=== PATIENT | female | born 1980 | race Caucasian/White ===

== ENCOUNTER 2017-04-03 09:33 | Emergency (ER) | payer MEDICARE, OTHER ==
[2017-04-03] MEDS ORDERED: ONDANSETRON 4 MG/2 ML VIAL IVP STA (09:55)
[2017-04-03] MEDS ORDERED: SODIUM CHLORIDE 0.9% 1,000 ML IV ONE (09:55)
[2017-04-03] MEDS ORDERED: FAMOTIDINE 20 MG/2 ML VIAL IV STA (10:18)
--- NOTE | 2017-04-03 10:18 | ED ---
General Adult HPI - General Chief complaint: Dental/Oral Stated complaint: Dental Pain Time Seen by Provider: 04/03/17 09:47 Source: patient, RN notes reviewed Mode of arrival: ambulatory Limitations: no limitations - History of Present Illness Initial comments: 36-year-old female presents emergency with chief complaint of nausea vomiting diarrhea. Patient states that she had dental extraction last . States she is feeling great yesterday woke up with diarrhea nausea and vomiting and asked reflux. Patient states she just doesn't feel well. She states she may have picked up a GI bug. She also is concerned about infection in her mouth but states that she felt great yesterday with no fevers no chills. She states she has had some bruising noted side of her face which was there after the procedure and they did do sutures in her mouth. Patient states she is on antibiotics but states she cannot take them at this time because she has been vomiting but has taken them since last week. - Related Data Home Medications Medication Instructions Recorded Confirmed ALPRAZolam [Xanax] 2 mg PO DAILY PRN 04/03/17 04/03/17 Amoxicillin 500 mg PO TID 04/03/17 04/03/17 HYDROcodone/APAP 10-325MG [[place] 1 tab PO QID PRN 04/03/17 04/03/17 10-325] Ibuprofen [Motrin] 800 mg PO TID PRN 04/03/17 04/03/17 Loratadine [Claritin] 10 mg PO DAILY 04/03/17 04/03/17 Previous Rx's Medication Instructions Recorded Clindamycin HCl 300 mg PO Q6HR #40 cap 04/03/17 Ondansetron Odt [Zofran Odt] 4 mg PO Q8HR PRN #14 tab 04/03/17 Allergies Allergy/AdvReac Type Severity Reaction Status Date / Time propoxyphene Allergy Rash/Hives Verified 04/03/17 09:54 [From Sissy] Review of Systems ROS Statement: Those systems with pertinent positive or pertinent negative responses have been documented in the HPI. ROS Other: All systems not noted in ROS Statement are negative. Past Medical History History of Any Multi-Drug Resistant Organisms: None Reported Past Surgical History: Hysterectomy, Orthopedic Surgery Additional Past Surgical History / Comment(s): rt wrist/forearm ,D&C Past Psychological History: Anxiety Smoking Status: Current every day smoker Past Alcohol Use History: None Reported Past Drug Use History: Marijuana General Exam Limitations: no limitations General appearance: alert, in no apparent distress Head exam: Present: atraumatic, normocephalic, normal inspection Eye exam: Present: normal appearance, PERRL, EOMI. Absent: scleral icterus, conjunctival injection, periorbital swelling ENT exam: Present: mucous membranes moist, TM's normal bilaterally, normal external ear exam, other (Ecchymosis noted to the left cheek). Absent: normal exam, normal oropharynx (Dental extraction noted #13 and [address] no abscess no erythema no purulent drainage) Neck exam: Present: normal inspection, full ROM. Absent: tenderness, meningismus, lymphadenopathy Respiratory exam: Present: normal lung sounds bilaterally. Absent: respiratory distress, wheezes, rales, rhonchi, stridor Cardiovascular Exam: Present: regular rate, normal rhythm, normal heart sounds. Absent: systolic murmur, diastolic murmur, rubs, gallop, clicks GI/Abdominal exam: Present: soft, normal bowel sounds. Absent: distended, tenderness, guarding, rebound, rigid Course Vital Signs 04/03/17 09:37 Temperature 98.9 F Pulse Rate 72 Respiratory 20 Rate Blood Pressure 116/81 O2 Sat by Pulse 100 Oximetry Medical Decision Making - Medical Decision Making 36-year-old female presented emergency department for nausea vomiting diarrhea and dental problems. Patient dental work seems to be healing with no true signs of worsening infection. Patient most likely has gastroenteritis. Patient does have mild elevation of liver enzymes and ultrasound shows fatty liver versus hepatitis. Acute hepatitis panel we added for concern about hepatitis a as his been a recent outbreak. I did update the patient regarding this. She'll be notified if this is come back positive. Patient will be given Zofran to go home with and will given prescription for clindamycin if her dental symptoms do not improve. - Lab Data Result diagrams: 04/03/17 10:15 04/03/17 10:15 Lab Results 04/03/17 04/03/17 04/03/17 Range/Units 10:15 10:15 10:15 WBC 15.1 H (3.8-10.6) k/uL RBC 4.49 (3.80-5.40) m/uL Hgb 14.3 (11.4-16.0) gm/dL Hct 39.2 (34.0-46.0) % MCV 87.4 (80.0-100.0) fL MCH 31.8 (25.0-35.0) pg MCHC 36.4 (31.0-37.0) g/dL RDW 12.8 (11.5-15.5) % Plt Count 255 (150-450) k/uL Neutrophils % 84 % Lymphocytes % 11 % Monocytes % 3 % Eosinophils % 2 % Basophils % 0 % Neutrophils # 12.7 H (1.3-7.7) k/uL Lymphocytes # 1.6 (1.0-4.8) k/uL Monocytes # 0.4 (0-1.0) k/uL Eosinophils # 0.2 (0-0.7) k/uL Basophils # 0.1 (0-0.2) k/uL Sodium 141 (137-145) mmol/L Potassium 4.2 (3.5-5.1) mmol/L Chloride 107 (98-107) mmol/L Carbon Dioxide 22 (22-30) mmol/L Anion Gap 12 mmol/L BUN 10 (7-17) mg/dL Creatinine 0.75 (0.52-1.04) mg/dL Est GFR (MDRD) Af Amer >60 (>60 ml/min/1.73 sqM) Est GFR (MDRD) Non-Af >60 (>60 ml/min/1.73 sqM) Glucose 97 (74-99) mg/dL Calcium 10.3 H (8.4-10.2) mg/dL Total Bilirubin 0.5 (0.2-1.3) mg/dL AST 66 H (14-36) U/L ALT 197 H (9-52) U/L Alkaline Phosphatase 148 H (38-126) U/L Total Protein 7.9 (6.3-8.2) g/dL Albumin 4.7 (3.5-5.0) g/dL Lipase 63 (23-300) U/L Urine Color Light Yellow Urine Appearance Clear (Clear) Urine pH 8.0 (5.0-8.0) Ur Specific [place] 1.004 (1.001-1.035) Urine Protein Negative (Negative) Urine Glucose (UA) Negative (Negative) Urine Ketones Negative (Negative) Urine Blood Negative (Negative) Urine Nitrite Negative (Negative) Urine Bilirubin Negative (Negative) Urine Urobilinogen <2.0 (<2.0) mg/dL Ur Leukocyte Esterase Negative (Negative) Disposition Clinical Impression: Pain, dental, Gastroenteritis Disposition: HOME SELF-CARE Condition: Stable Instructions: Gastroenteritis (ED) Additional Instructions: Please return to the Emergency Department if symptoms worsen or any other concerns. Prescriptions: Clindamycin HCl 300 mg PO Q6HR #40 cap Ondansetron Odt [Zofran Odt] 4 mg PO Q8HR PRN #14 tab PRN Reason: Nausea Referrals: Digna Alonso MD [Primary Care Provider] - 1-2 days Time of Disposition: 11:56
[2017-04-03 10:36] LABS: Basophils # (A) 0.1 k/uL (0-0.2); Basophils % (A) 0 %; CH 31.4; CHCM 36.1; Eosinophils # (A) 0.2 k/uL (0-0.7); Eosinophils % (A) 2 %; HCT 39.2 % (34.0-46.0); HDW 2.64; HGB 14.3 gm/dL (11.4-16.0); Luc # (Auto) 0.12; Luc % (Auto) 1; Lymphocytes # (A) 1.6 k/uL (1.0-4.8); Lymphocytes % (A) 11 %; MCH 31.8 pg (25.0-35.0); MCHC 36.4 g/dL (31.0-37.0); MCV 87.4 fL (80.0-100.0); Mean Platelet Volume 7.3; Monocytes # (A) 0.4 k/uL (0-1.0); Monocytes % (A) 3 %; Neutrophils # (A) 12.7 k/uL (1.3-7.7); Neutrophils % (A) 84 %; RBC 4.49 m/uL (3.80-5.40); RDW 12.8 % (11.5-15.5); WBC 15.1 k/uL (3.8-10.6); WBC (Perox) 14.97
[2017-04-03 10:46] LABS: Appearance,Urine Clear (Clear); Bilirubin,Urine Negative (Negative); Glucose,Urine (UA) Negative (Negative); Ketones,Urine Negative (Negative); Leukocyte Esterase,Urine Negative (Negative); Nitrite,Urine Negative (Negative); Protein,Urine Negative (Negative); Specific Gravity,Urine 1.004 (1.001-1.035); UA Billing (MACRO vs. MICRO) CHEM; Urobilinogen,Urine <2.0 mg/dL (<2.0)
[2017-04-03 10:49] LABS: ALT 197 U/L (9-52); AST 66 U/L (14-36); Alkaline Phosphatase 148 U/L (38-126); Anion Gap 12 mmol/L; Blood Urea Nitrogen 10 mg/dL (7-17); Calcium 10.3 mg/dL (8.4-10.2); Carbon Dioxide 22 mmol/L (22-30); Chloride 107 mmol/L (98-107); Glucose 97 mg/dL (74-99); Non-African American GFR(MDRD) >60 (>60 ml/min/1.73 sqM); Potassium 4.2 mmol/L (3.5-5.1); Sodium 141 mmol/L (137-145); Total Bilirubin 0.5 mg/dL (0.2-1.3); Total Protein 7.9 g/dL (6.3-8.2)
[2017-04-03] MEDS ORDERED: KETOROLAC 30 MG/ML 1 ML VIAL IVP STA (10:58)
--- NOTE | 2017-04-03 11:35 | US ---
EXAMINATION TYPE: US abdomen limited DATE OF EXAM: 04/03/2017 COMPARISON: NONE CLINICAL HISTORY: Pain. EC patient with dental pain who developed infection post teeth extraction ; nausea and vomiting today with epigastric pain post vomiting; elevated liver enzymes note d upon EC visit today. EXAM MEASUREMENTS: Liver Length: 15.5 cm Gallbladder Wall: 0.1 cm CBD: 0.4 cm Right Kidney: 10.9 x 5.7 x 4.2 cm Pancreas: wnl, tail is obscured by overlying bowel gas Liver: no masses seen; mildly heterogeneous appearance to right lobe liver Gallbladder: wnl; Phrygian Cap noted at gallbladder fundus Evidence for sonographic Coffman's sign: No CBD: wnl Right Kidney: wnl IMPRESSION: 1. Mild heterogeneous age of liver can be seen with areas of localized fatty infiltration, hepatitis or hepatocellular disease correlate clinically.
[2017-04-03] MEDS ORDERED: METOCLOPRAMIDE 5 MG/ML 2 ML VIAL IVP STA (11:54)
[2017-04-03 12:09] VITALS: BP 101/54; PULSE 64; RESP 18; TEMP 98.5
[2017-04-03 12:32] LABS: Hepatitis B Surface Ag Index 0.06
[2017-04-03 12:37] LABS: Hepatitis B Core IgM Index 0.03
[2017-04-03 12:49] LABS: Hepatitis C Virus IgG Ab Negative (Negative); Hepatitis C Virus IgG Index 0.32
== END 2017-04-03 12:09 | disposition home or self-care (01) ==
LOC: EC 09:33
DX: K52.9 Noninfective gastroenteritis and colitis, unspecified (principal); K08.89 Other specified disorders of teeth and supporting structures; K08.409 Partial loss of teeth, unspecified cause, unspecified class; R58 Hemorrhage, not elsewhere classified; R74.8 Abnormal levels of other serum enzymes; R11.2 Nausea with vomiting, unspecified; F17.200 Nicotine dependence, unspecified, uncomplicated; Z79.899 Other long term (current) drug therapy; Z88.5 Allergy status to narcotic agent; Z98.890 Other specified postprocedural states
CPT/HCPCS: 36415; 80053; 80074; 83690; 85025; 81003; 76705; 99283; 96374; 96375 ×3; 96361; J2765; J2405; J1885

== ENCOUNTER → 2018-07-16 | Outpatient (CLI) | payer MEDICARE, OTHER ==
--- NOTE | 2018-07-16 16:03 | US ---
EXAMINATION TYPE: US thyroid st tissue head/neck DATE OF EXAM: 07/16/2018 COMPARISON: 02/26/2013 CLINICAL HISTORY: R22.0 Thyroid Nodule. GLAND SIZE: Right Lobe: 5.0 x 1.5 x 1.9 cm Overall Parenchyma: heterogenous Left Lobe: 4.9 x 0.9 x 1.7 cm Overall Parenchyma: heterogeneous Isthmus Thickness: 0.2 cm NODULES RIGHT: # of nodules measured on right: 1 1. 0.2 X 0.1 x 0.2cm anechoic cystic nodule at the mid pole with well-defined margins. This nodule is wider than tall and shows no intranodular vascularity. Prior size: 0.3 x 0.2 x 0.2 cm LEFT: # of nodules measured on left: There is a 3 mm lower pole left thyroid cyst similar to the p rior exam. ISTHMUS: # of nodules measured in the isthmus: 0 Bilateral neck scanned, no evidence of lymphadenopathy. IMPRESSION: Slightly enlarged heterogenous thyroid gland with a bilateral 3 mm thyroid nodules that appear cystic and similar to the prior of 2012 therefore overwhelmingly benign.
== END | disposition home or self-care (01) ==
LOC: RADUSWWP 15:30
PROVIDERS: ATTEND Internal Medicine
DX: E04.2 Nontoxic multinodular goiter (principal)
CPT/HCPCS: 76536

== ENCOUNTER → 2018-07-27 | Outpatient (CLI) | payer MEDICARE ==
--- NOTE | 2018-07-28 10:01 | MR ---
EXAMINATION TYPE: MR thoracic spine wo con DATE OF EXAM: 07/27/2018 COMPARISON: None HISTORY: Mid Back Pain x 6 months TECHNIQUE: Standard multiplanar, multisequence MRI of the thoracic spine was performed per department al protocol without intravenous contrast. FINDINGS: The thoracic spine vertebral bodies maintain normal vertebral body heights and alignment. Bone marrow signal is slightly decreased throughout although overall within normal limits with note of vertebral body hemangioma at T2 and Modic type II degenerative endplate changes of the lower thoracic spine. C orrelation with CBC could be performed to exclude anemia or myeloproliferative disorder. Throughout the thoracic spine there is no significant disc disease, spinal canal stenosis or neural f oraminal narrowing. No focal disc herniation is seen. Thoracic spinal cord signal is unremarkable. No epidural fluid collection. No intradural or extradural masses seen. IMPRESSION: 1. No compression deformity, spinal canal stenosis, neural foraminal narrowing, or disc herniation in the thoracic spine. Minimal degenerative endplate changes of the lower thoracic spine vertebral bodi es are seen. Paraspinal muscles are unremarkable in signal. 2. Bone marrow signal is at lower limits of normal and could relate to mild anemia. Correlate with CB C to exclude anemia or much less likely myeloproliferative disorder.
== END | disposition home or self-care (01) ==
LOC: RADMRIMAIN 08:44
PROVIDERS: ATTEND Internal Medicine
DX: M47.814 Spondylosis without myelopathy or radiculopathy, thoracic region (principal)
CPT/HCPCS: 72146

== ENCOUNTER → 2018-09-23 | Outpatient (CLI) | payer MEDICARE, OTHER ==
--- NOTE | 2018-09-26 14:30 | MM ---
Reason for exam: screening (asymptomatic). History: Patient is postmenopausal. Family history of breast cancer in paternal grandmother and breast cancer in 3 paternal aunts. Took estrogen for 6 months. MG 3D Screening Mammo W/Cad Bilateral CC and MLO view(s) were taken. Chronic nodularity in the left breast. No significant changes when compared with prior studies. ASSESSMENT: Benign, BI-RAD 2 RECOMMENDATION: Routine screening mammogram of both breasts in 1 year.
== END | disposition home or self-care (01) ==
LOC: RADMAMWWP 10:42
PROVIDERS: ATTEND Obstetrics & Gynecology
DX: Z12.31 Encounter for screening mammogram for malignant neoplasm of breast (principal)
CPT/HCPCS: 77063; 77067

== ENCOUNTER → 2018-10-17 | Outpatient (CLI) | payer MEDICARE, OTHER ==
--- NOTE | 2018-10-18 00:32 | MR ---
EXAMINATION TYPE: MR cspine/lspine wo con DATE OF EXAM: 10/17/2018 COMPARISON: None HISTORY: Chronic Upper and Lower back pain with numbness and weakness in lower extrem. x5 years TECHNIQUE: Multiplanar, multisequence imaging of the lumbar spine and cervical spine is performed wit hout IV contrast. FINDINGS: Cervical spine. The cervical vertebra have fairly normal spacing and alignment. There is no spinal stenosis. There is developmentally adequate spinal canal. Cervical spinal cord has normal signal pattern. There is no e rylan. Brainstem appears normal. There is no cervical paraspinal mass. The posterior elements are inta ct. I see no bony destructive process. Lumbar spine. The lumbar vertebra have normal spacing and alignment. There is slight decreased signal in the L5-S1 disc. There is no compression fracture in the lumbar spine. Lumbar nerve roots appear normal. Neural foramina are widely patent. There is no lumbar paraspinal mass. There is no lumbar spinal stenosis. L ower thoracic spinal cord appears normal. I see no focal bone destruction. There is very small drum stenciler ior disc bulge at L5-S1. IMPRESSION: Negative MR scan of the cervical spine. Negative MR scan of the lumbar spine. Minor degenerative signal changes in the L5-S1 disc. No cervical or lumbar disc herniation or spinal stenosis.
== END | disposition home or self-care (01) ==
LOC: RADMRIMAIN 20:49
PROVIDERS: ATTEND Internal Medicine
DX: M47.817 Spondylosis without myelopathy or radiculopathy, lumbosacral region (principal); M54.2 Cervicalgia
CPT/HCPCS: 72141; 72148

== ENCOUNTER 2018-12-09 19:15 | Observation (INO) | payer MEDICARE ==
[2018-12-09] MEDS ORDERED: SODIUM CHLORIDE 0.9% 1,000 ML IV STA ×2 (19:27)
--- NOTE | 2018-12-09 19:30 | ED ---
Chest Pain HPI - General Chief Complaint: Chest Pain Stated Complaint: chest pain Time Seen by Provider: 12/09/18 19:25 Source: patient, RN notes reviewed, old records reviewed Mode of arrival: ambulatory Limitations: no limitations - History of Present Illness Initial Comments: This is a 38-year-old female the ER for evaluation of chest pain right-sided chest pain rating to back. Patient is anxious feels like she can't catch her breath. Very emotional during questioning. No prior history of chest pain no prior history of heart disease. No high blood pressure or cholesterol no diabetes nonsmoker. No recent travel history no sick contacts. -: week(s) Onset: during rest, during exertion Pain Location: right chest Pain Radiation: RUE, back Severity: moderate Severity scale (1-10): 3 Quality: heaviness, sharp Consistency: intermittent Improves With: nothing Worsens With: nothing Anginal Symptoms: nausea, dyspnea Other Symptoms: palpitations Treatments Prior to Arrival: none - Related Data Home Medications Medication Instructions Recorded Confirmed ALPRAZolam [Xanax] 2 mg PO DAILY PRN 04/03/17 12/09/18 HYDROcodone/APAP 10-325MG [[place] 1 tab PO QID PRN 04/03/17 12/09/18 10-325] Loratadine [Claritin] 10 mg PO DAILY 04/03/17 12/09/18 Furosemide [Lasix] 20 mg PO DAILY 12/09/18 12/09/18 Potassium Chloride ER [K-Dur 10] 10 meq PO DAILY 12/09/18 12/09/18 Topiramate [Topamax] 25 mg PO BID 12/09/18 12/09/18 Allergies Allergy/AdvReac Type Severity Reaction Status Date / Time propoxyphene Allergy Rash/Hives Verified 12/09/18 19:36 [From Sissy] Review of Systems ROS Statement: Those systems with pertinent positive or pertinent negative responses have been documented in the HPI. ROS Other: All systems not noted in ROS Statement are negative. EKG Findings - EKG Comments: EKG Findings:: EKG shows sinus rhythm rate of 86, MO 132, QRS 70, QTc 454 Past Medical History Additional Past Medical History / Comment(s): neuropathy History of Any Multi-Drug Resistant Organisms: None Reported Past Surgical History: Hysterectomy, Orthopedic Surgery Additional Past Surgical History / Comment(s): rt wrist/forearm ,D&C Past Psychological History: Anxiety Smoking Status: Current every day smoker Past Alcohol Use History: None Reported Past Drug Use History: Marijuana General Exam Limitations: no limitations General appearance: alert, in no apparent distress, anxious Head exam: Present: atraumatic, normocephalic, normal inspection Eye exam: Present: normal appearance, PERRL, EOMI. Absent: scleral icterus, conjunctival injection, periorbital swelling ENT exam: Present: normal exam, mucous membranes moist Neck exam: Present: normal inspection. Absent: tenderness, meningismus, lymphadenopathy Respiratory exam: Present: normal lung sounds bilaterally. Absent: respiratory distress, wheezes, rales, rhonchi, stridor Cardiovascular Exam: Present: normal rhythm, tachycardia, normal heart sounds. Absent: systolic murmur, diastolic murmur, rubs, gallop, clicks GI/Abdominal exam: Present: soft, normal bowel sounds. Absent: distended, tenderness, guarding, rebound, rigid Extremities exam: Present: normal inspection, full ROM, normal capillary refill. Absent: tenderness, pedal edema, joint swelling, calf tenderness Back exam: Present: normal inspection Neurological exam: Present: alert, oriented X3, CN II-XII intact Psychiatric exam: Present: normal affect, normal mood Skin exam: Present: warm, dry, intact, normal color. Absent: rash Course Vital Signs 12/09/18 19:18 Temperature 98.0 F Pulse Rate 108 H Respiratory 24 Rate Blood Pressure 128/81 O2 Sat by Pulse 100 Oximetry Chest Pain MDM - MDM 38-year-old female the ER with chest pain, CT negative for PE. Patient be adm itted for cardiac observation Disposition Clinical Impression: Chest pain Disposition: ADMITTED IP TO THIS HOSP Condition: Undetermined Instructions (If sedation given, give patient instructions): Chest Pain (ED) Is patient prescribed a controlled substance at d/c from ED?: No Referrals: Digna Alonso MD [Primary Care Provider] - 1-2 days
[2018-12-09] MEDS ORDERED: LORazepam 2 MG/ML INJ IV STA (19:47)
[2018-12-09 20:01] LABS: HCT 45.8 % (34.0-46.0); HGB 15.8 gm/dL (11.4-16.0); MCH 30.6 pg (25.0-35.0); MCHC 34.5 g/dL (31.0-37.0); MCV 88.5 fL (80.0-100.0); Mean Platelet Volume 7.1; Platelet Count 351 k/uL (150-450); RBC 5.18 m/uL (3.80-5.40); RDW 13.6 % (11.5-15.5); WBC 17.9 k/uL (3.8-10.6)
[2018-12-09 20:09] LABS: Calcium 10.2 mg/dL (8.4-10.2); Magnesium 2.2 mg/dL (1.6-2.3); Potassium 4.3 mmol/L (3.5-5.1); Total Bilirubin 0.5 mg/dL (0.2-1.3); Total Protein 8.3 g/dL (6.3-8.2)
[2018-12-09 20:18] LABS: D-Dimer 0.19 mg/L FEU (<0.60); INR 0.9 (<1.2); Partial Thromboplastin Time 22.6 sec (22.0-30.0); Prothrombin Time 9.7 sec (9.0-12.0)
[2018-12-09 20:47] LABS: Band Neutrophils % 3 %; Eosinophils # (M) 0.18 k/uL (0-0.7); Neutrophils % (M) 58 %; Nucleated Red Blood Cells 0 /100 WBC (0-0); Total Cells Counted 100
--- NOTE | 2018-12-09 20:59 | CT ---
EXAMINATION TYPE: CT angio chest DATE OF EXAM: 12/09/2018 COMPARISON: NONE HISTORY: chest pain x3 weeks CT DLP: 283.3 mGycm. Automated Exposure Control for Dose Reduction was Utilized. CONTRAST: CTA scan of the thorax is performed with IV Contrast, patient injected with 100 mL of Isovue 370, pul monary embolism protocol. MIP Images are created on CT scanner and reviewed. FINDINGS: LUNGS: Dependent atelectasis bilateral lower lobes is identified. No suspicious nodules or masses. No suspicious consolidation. No pleural effusion or pneumothorax. Tracheobronchial tree is patent. MEDIASTINUM: There is satisfactory enhancement of the pulmonary artery and its branches, there is no CT evidence for pulmonary embolism. There are no greater than 1 cm hilar or mediastinal lymph nodes. No cardiomegaly or pericardial effusion is seen. Right coronary artery is not well visualized pres umes obscured by cardiac pulsation. OTHER: No additional significant abnormality is seen. IMPRESSION: No CT evidence for acute pulmonary embolism. No suspicious acute pulmonary process.
[2018-12-09] MEDS ORDERED: NITROGLYCERIN SL TABS 0.4 MG TAB SUBLINGUAL PRN (21:36)
[2018-12-09] MEDS ORDERED: HEPARIN SODIUM,PORCINE 5,000 UNIT/ML 1 ML VIAL IV ONE (21:36)
[2018-12-09] MEDS ORDERED: HEPARIN SODIUM,PORCINE 5,000 UNIT/ML 1 ML VIAL IV PRN (21:36)
[2018-12-09] MEDS ORDERED: ASPIRIN 81 MG PO STA (21:36)
[2018-12-09] MEDS ORDERED: HEPARIN SOD,PORK IN 0.45% NACL 25,000 UNIT in 0.45% NACL 1 250ML.BAG IV SCH (21:45)
[2018-12-09] MEDS ORDERED: ALPRAZolam 0.5 MG TAB PO PRN (22:27)
[2018-12-09] MEDS ORDERED: ACETAMINOPHEN TAB 325 MG TAB PO PRN (22:28)
[2018-12-09] MEDS ORDERED: ONDANSETRON 4 MG/2 ML VIAL IVP PRN (23:30)
[2018-12-09] MEDS: MORPHINE SULFATE 2 MG/ML SYRINGE IVP PRN (23:40)
[2018-12-10] MEDS: NICOTINE 14MG/24HR PATCH TRANSDERM SCH ×2 (00:11→08:17)
[2018-12-10 03:47] VITALS: TEMP 98
[2018-12-10] MEDS: MORPHINE SULFATE 2 MG/ML SYRINGE IVP PRN (04:05)
[2018-12-10 08:03] LABS: Cholesterol 278 mg/dL (<200); HDL Cholesterol 46 mg/dL (40-60); LDL Cholesterol,Calculated 176 mg/dL (0-99); Triglycerides 281 mg/dL (<150)
[2018-12-10 08:27] LABS: Mean Platelet Volume 7.6; Platelet Count 260 k/uL (150-450)
[2018-12-10] MEDS ORDERED: NAPROXEN 250 MG TAB PO STA (08:37)
[2018-12-10] MEDS ORDERED: PANTOPRAZOLE 40 MG TABLET PO SCH (08:45)
[2018-12-10] MEDS ORDERED: ASPIRIN 325 MG TAB PO SCH (09:00)
[2018-12-10] MEDS ORDERED: ATORVASTATIN 80 MG TAB PO SCH (09:00)
--- NOTE | 2018-12-10 10:08 | XR ---
EXAMINATION TYPE: XR chest 2V DATE OF EXAM: 12/10/2018 COMPARISON: 12/09/2018 CT chest HISTORY: Chest pain and dizziness TECHNIQUE: Frontal and lateral views of the chest are obtained. FINDINGS: There is no focal air space opacity, pleural effusion, or pneumothorax seen. The cardiac silhouette size is within normal limits. The osseous structures are intact. IMPRESSION: No acute cardiopulmonary process.
--- NOTE | 2018-12-10 10:37 | P.CRDCN ---
History of Present Illness History of present illness: This is a pleasant 38-year-old female with no significant past medical history other than chronic daily nicotine use she smokes approximately one pack per day. She denies history of coronary artery disease, hypertension or dyslipidemia. We have been asked to see her in consultation for symptoms of chest discomfort. She complains of a sharp pain in mid-sternal region that move s from right to left and down the right arm to the elbow as well is down the right leg. She has also been experiencing some shortness of breath, light headed feeling, palpitations described as racing and clammy sensation. Her symptoms are not related to exertion or activity. The pain in the chest is reproducible on palpation and worse when she starts coughing. For approximately the last month she has had symptoms of upper respiratory illness. She initially was started on a Z-pack for congestion and suspected pneumonia which seemed to improve. Then a couple of weeks later she again was feeling short of breath, coughing and having lower extremity edema. Her PCP started her again on antibiotics, a medrol dose pack, lasix and ordered an echocardiogram. She has taken the lasix for 1 week and had 100% resolution of lower extremity edema. She finished the steroids yesterday. However she continues to feel short of breath, chest pain and coughing. EKG reveals sinus mechanism with no ST or t-wave abnormalities. Chest x-ray is negative for an acute cardiopulmonary process. CTA chest negative for pulmonary embolism. Laboratory data reviewed, WBC 17.9, cardiac enzymes negative 3, NT proBNP 23. At the time of my exam: CONSTITUTIONAL: Denies fever. Denies chills. EYES: Denies blurred vision. Denies vision changes. Denies eye pain. EARS, NOSE, MOUTH & THROAT: Denies headache. Denies sore throat. Denies ear pain. CARDIOVASCULAR: Denies chest pain. Denies shortness of breath. Denies orthopnea. Denies PND. Denies palpitations. RESPIRATORY: Denies cough. GASTROINTESTINAL: Denies abdominal pain. Denies diarrhea. Denies constipation. Denies nausea. Denies vomiting. MUSCULOSKELETAL: Denies myalgias. INTEGUMENTARY: Denies pruitis. Denies rash. NEUROLOGIC: Denies numbness. Denies tingling. Denies weakness. PSYCHIATRIC: Denies anxiety. Denies depression. ENDOCRINE: Denies fatigue. Denies weight change. Denies polydipsia. Denies polyurina. GENITOURINARY: Denies burning, hematuria or urgency with micturation. HEMATOLOGIC: Denies history of anemia. Denies bleeding. Blood pressure 112/73 heart rate 72 afebrile maintaining oxygen saturation on room air GENERAL: This is a 38-year-old female in no apparent distress at the time of my examination. HEENT: Head is atraumatic, normocephalic. Pupils are equal, round. Sclerae anicteric. Conjunctivae are clear. Mucous membranes of the mouth are moist. Neck is supple. There is no jugular venous distention. No carotid bruit is heard. LUNGS: Clear to auscultation no wheezes, rales or rhonchi. No chest wall tenderness is noted on palpation or with deep breathing. HEART: Regular rate and rhythm without murmurs, rubs or gallops. S1 and S2 heard. ABDOMEN: Soft, nontender. Bowel sounds are heard. No organomegaly noted. EXTREMITIES: No evidence of peripheral edema and no calf tenderness noted. VASCULAR: Radial and dorsalis pedis pulses palpated, no evidence of clubbing. NEUROLOGIC: Patient is awake, alert and oriented x3. ASSESSMENT Chest pain, atypical possibly related to musculoskeletal strain secondary to coughing and upper respiratory type infection. Chronic nicotine dependence Leukocytosis PLAN An acute coronary event has been ruled out. Discontinue heparin infusion. Give a dose of naproxen for pain. Obtain 2D echocardiogram and doppler study to assess cardiac structure and function. Overall stable from a cardiac perspective. Follow up in the office for outpatient stress testing when acute respiratory il lness has improved. Smoking cessation recommended. Thank you kindly for this consultation. Nurse Practitioner note has been reviewed, I agree with a documented findings and plan of care. Patient was seen and examined. Past Medical History Additional Past Medical History / Comment(s): neuropathy History of Any Multi-Drug Resistant Organisms: None Reported Past Surgical History: Hysterectomy, Orthopedic Surgery Additional Past Surgical History / Comment(s): rt wrist/forearm ,D&C Past Anesthesia/Blood Transfusion Reactions: No Reported Reaction Smoking Status: Current every day smoker - Past Family History Mother Family Medical History: No Reported History Father Additional Family Medical History / Comment(s): cardiovascular swelling Medications and Allergies Home Medications Medication Instructions Recorded Confirmed Type ALPRAZolam [Xanax] 2 mg PO DAILY PRN 04/03/17 12/09/18 History HYDROcodone/APAP 10-325MG [[place] 1 tab PO QID PRN 04/03/17 12/09/18 History 10-325] Loratadine [Claritin] 10 mg PO DAILY 04/03/17 12/09/18 History Furosemide [Lasix] 20 mg PO DAILY 12/09/18 12/09/18 History Potassium Chloride ER [K-Dur 10] 10 meq PO DAILY 12/09/18 12/09/18 History Topiramate [Topamax] 25 mg PO BID 12/09/18 12/09/18 History Allergies Allergy/AdvReac Type Severity Reaction Status Date / Time propoxyphene Allergy Rash/Hives Verified 12/09/18 23:06 [From Sissy] Physical Exam Vitals: Vital Signs Temp Pulse Pulse Resp BP BP Pulse Ox 12/10/18 07:10 98.0 F 72 18 112/73 98 12/10/18 04:00 16 12/10/18 03:46 98.0 F 69 16 107/65 99 12/09/18 23:57 16 12/09/18 23:48 97.5 F L 82 16 115/77 98 12/09/18 21:22 77 18 109/80 98 12/09/18 19:18 98.0 F 108 H 24 128/81 100 Intake and Output 12/09/18 12/10/18 12/10/18 22:59 06:59 14:59 Other: # Voids 1 Weight 82.554 kg Results 12/10/18 07:26 12/09/18 19:45 Cardiac Enzymes 12/09/18 12/09/18 12/10/18 Range/Units 19:45 19:45 02:11 AST 26 (14-36) U/L Troponin I <0.012 <0.012 (0.000-0.034) ng/mL Coagulation 12/09/18 Range/Units 19:45 PT 9.7 (9.0-12.0) sec APTT 22.6 (22.0-30.0) sec CBC 12/09/18 Range/Units 19:45 WBC 17.9 H (3.8-10.6) k/uL RBC 5.18 (3.80-5.40) m/uL Hgb 15.8 (11.4-16.0) gm/dL Hct 45.8 (34.0-46.0) % Plt Count 351 (150-450) k/uL Comprehensive Metabolic Panel 12/09/18 Range/Units 19:45 Sodium 139 (137-145) mmol/L Potassium 4.3 (3.5-5.1) mmol/L Chloride 105 (98-107) mmol/L Carbon Dioxide 22 (22-30) mmol/L BUN 19 H (7-17) mg/dL Creatinine 0.96 (0.52-1.04) mg/dL Glucose 86 (74-99) mg/dL Calcium 10.2 (8.4-10.2) mg/dL AST 26 (14-36) U/L ALT 37 (9-52) U/L Alkaline Phosphatase 116 (38-126) U/L Total Protein 8.3 H (6.3-8.2) g/dL Albumin 5.0 (3.5-5.0) g/dL Current Medications Generic Name Dose Route Start Last Admin Trade Name Freq PRN Reason Stop Dose Admin Acetaminophen 650 mg 12/09/18 22:28 Tylenol Tab PO Q6HR PRN Fever and/ or Pain Alprazolam 0.5 mg 12/09/18 22:27 Xanax PO TID PRN Anxiety Aspirin 325 mg 12/10/18 09:00 Aspirin PO DAILY [facility] Atorvastatin Calcium 80 mg 12/10/18 09:00 Lipitor PO DAILY [facility] Heparin Sodium (Porcine) 0 unit 12/09/18 21:36 Heparin IV Q6HR PRN Low PTT Protocol Heparin Sodium/Sodium Chloride 250 mls @ 9.906 mls/hr 12/09/18 21:45 12/09/18 22:11 25,000 unit/ Sodium Chloride IV 12 units/kg/hr .Q24H CRISTEL 9.906 mls/hr Administration Protocol 12 UNITS/KG/HR Morphine Sulfate 2 mg 12/09/18 23:30 12/10/18 04:05 Morphine Sulfate (Inj) IVP 2 mg Q4H PRN Administration Pain/Discomfort Nicotine 1 patch 12/09/18 23:45 12/10/18 00:11 Habitrol 14mg/24hr Patch TRANSDERM 1 patch DAILY [facility] Administration Nitroglycerin 0.4 mg 12/09/18 21:36 Nitrostat SUBLINGUAL Q5M PRN Chest Pain Ondansetron HCl 4 mg 12/09/18 23:30 Zofran IVP Q6HR PRN Nausea And Vomiting Intake and Output 12/09/18 12/10/18 12/10/18 22:59 06:59 14:59 Other: # Voids 1 Weight 82.554 kg 12/09/18 19:45 12/09/18 19:45
[2018-12-10 11:38] VITALS: BP 106/71; PULSE 76; RESP 18
--- NOTE | 2018-12-10 12:57 | ECHOF ---
Referral Reason: MEASUREMENTS -------- HEIGHT: 162.6 cm WEIGHT: 87.1 kg BP: 112/73 RVIDd: 2.5 cm (< 3.3) IVSd: 1.3 cm (0.6 - 1.1) LVIDd: 3.8 cm (3.9 - 5.3) LVPWd: 1.1 cm (0.6 - 1.1) IVSs: 1.2 cm LVIDs: 2.9 cm LVPWs: 1.4 cm LA Diam: 3.0 cm (2.7 - 3.8) LAESV Index (A-L): 19.57 ml/m Ao Diam: 2.5 cm (2.0 - 3.7) AV Cusp: 1.5 cm (1.5 - 2.6) LA Diam: 3.1 cm (2.7 - 3.8) MV EXCURSION: 21.518 mm (> 18.000) MV EF SLOPE: 119 mm/s (70 - 150) EPSS: 0.3 cm MV E Christian: 0.77 m/s MV DecT: 153 ms MV A Christian: 0.70 m/s MV E/A Ratio: 1.09 RAP: 5.00 mmHg RVSP: 23.34 mmHg FINDINGS -------- Sinus rhythm. This was a technically good study. LV size, wall thickness and systolic function are normal, with an EF greater than 55%. The left radha tricular size is normal. The right ventricle is normal in size. The left atrial size is normal. The right atrial size is normal. The aortic valve is trileaflet, and appears structurally normal. No aortic stenosis or regurgitation. Mild mitral annular calcification present. Mild mitral regurgitation is present. No regurgitation noted There is no evidence of pulmonary hypertension. The right ventricular syst olic pressure, as measured by Doppler, is 23.34mmHg. There is no pulmonic regurgitation present. There is no pericardial effusion. CONCLUSIONS -------- 1. LV size, wall thickness and systolic function are normal, with an EF greater than 55%. 2. The left ventricular size is normal. 3. The right ventricle is normal in size. 4. The left atrial size is normal. 5. The right atrial size is normal. 6. The aortic valve is trileaflet, and appears structurally normal. No aortic stenosis or regurgitati on. 7. Mild mitral annular calcification present. 8. Mild mitral regurgitation is present. 9. No regurgitation noted 10. There is no evidence of pulmonary hypertension. 11. The right ventricular systolic pressure, as measured by Doppler, is 23.34mmHg. 12. There is no pulmonic regurgitation present. 13. There is no pericardial effusion. [employer] MECH[employer]IC: Sosa Bocanegra RDCS
--- NOTE | 2018-12-10 15:01 | P.DS ---
Providers Date of admission: 12/09/18 21:36 Attending physician: Leonardo Villarreal Consults: 12/09/18 21:36 Consult Physician Urgent Consulting Provider: Maria Luz Funk Consult Reason/Comments: cp Do you want consulting provider notified?: Yes Primary care physician: Gavin Sawyer [place] [facility] Course: Please refer to my HPI Patient Condition at Discharge: Undetermined Plan - Discharge Summary New Discharge Prescriptions: New Amoxic-Pot Clav 875-125Mg [Augmentin 875-125] 1 tab PO Q12HR #10 tablet Atorvastatin [Lipitor] 40 mg PO DAILY #30 tab methylPREDNISolone Dose Pack [Medrol Dose Pack] 4 mg PO DIRECTED #21 package Nicotine 21Mg/24Hr Patch [Habitrol] 1 each TRANSDERM DAILY #14 patch Continue Loratadine [Claritin] 10 mg PO DAILY HYDROcodone/APAP 10-325MG [[place] 10-325] 1 tab PO QID PRN PRN Reason: Pain Potassium Chloride ER [K-Dur 10] 10 meq PO DAILY Furosemide [Lasix] 20 mg PO DAILY Topiramate [Topamax] 25 mg PO BID Changed ALPRAZolam [Xanax] 0.5 mg PO DAILY PRN #0 PRN Reason: Anxiety Discharge Medication List HYDROcodone/APAP 10-325MG [[place] 10-325] 1 tab PO QID PRN 04/03/17 [History] Loratadine [Claritin] 10 mg PO DAILY 04/03/17 [History] Furosemide [Lasix] 20 mg PO DAILY 12/09/18 [History] Potassium Chloride ER [K-Dur 10] 10 meq PO DAILY 12/09/18 [History] Topiramate [Topamax] 25 mg PO BID 12/09/18 [History] ALPRAZolam [Xanax] 0.5 mg PO DAILY PRN #0 12/10/18 [Rx] Amoxic-Pot Clav 875-125Mg [Augmentin 875-125] 1 tab PO Q12HR #10 tablet 12/10/18 [Rx] Atorvastatin [Lipitor] 40 mg PO DAILY #30 tab 12/10/18 [Rx] Nicotine 21Mg/24Hr Patch [Habitrol] 1 each TRANSDERM DAILY #14 patch 12/10/18 [Rx] methylPREDNISolone Dose Pack [Medrol Dose Pack] 4 mg PO DIRECTED #21 package 12/10/18 [Rx] Follow up Appointment(s)/Referral(s): Luigi Cordero MD [STAFF PHYSICIAN] - 2 Weeks Digna Alonso MD [Primary Care Provider] - 3 Days Travis Olson DO [Doctor of Osteopathic Medicine] - 1 Week Patient Instructions/Handouts: Chest Pain (ED) Discharge Disposition: HOME SELF-CARE
--- NOTE | 2018-12-10 15:01 | P.HPIM ---
History of Present Illness 38-year-old present female came in with complains of chest pain patient was dealing with upper respiratory tract infection for about a week or more and patient the completed 1 course of for Medrol Dosepak and Z-Jayy without any improvement in symptoms because of this patient has [place] skeletal chest pain has been going on for some time midsternal region moderate chest pain radiating from right to left denied any diaphoresis associated with that there is some shortness of breath and lightheadedness associated with that. Patient denied any fever chills patient's chest CAT scan did not show any PE or pneumonia. Patient was evaluated by cardiology rule out acute medicine syndromes troponins were negative EKG did not show any acute ST-T wave changes cardiology is recommending outpatient stress test. Patient does have history of gastroesophageal reflux disease but the her present symptomatology is not consistent with that. Patient denied any fever chills. Patient is also company of back pain which appears to be chronic and the that radiates to back of the buttock and thigh is comparing of bilateral lower extremity neuropathic symptoms. Patient has history of anxiety and and had lot of questions regarding management of anxiety disorder patient is on very high-dose of Xanax cut down the dose and patient will be started on Prozac. Review of Systems REVIEW OF SYSTEMS: CONSTITUTIONAL: No fever, no malaise, no fatigue. HEENT: No recent visual problems or hearing problems. Denied any sore throat. CARDIOVASCULAR: No orthopnea, PND, no palpitations, no syncope. PULMONARY: No shortness of breath, no cough, no hemoptysis. GASTROINTESTINAL: No diarrhea, no nausea, no vomiting, no abdominal pain. NEUROLOGICAL: No headaches, no weakness, no numbness. HEMATOLOGICAL: Denies any bleeding or petechiae. GENITOURINARY: Denies any burning micturition, frequency, or urgency. MUSCULOSKELETAL/RHEUMATOLOGICAL: As mentioned in HPI ENDOCRINE: Denies any polyuria or polydipsia. The rest of the 14-point review of systems is negative. Past Medical History Additional Past Medical History / Comment(s): neuropathy History of Any Multi-Drug Resistant Organisms: None Reported Past Surgical History: Hysterectomy, Orthopedic Surgery Additional Past Surgical History / Comment(s): rt wrist/forearm ,D&C Past Anesthesia/Blood Transfusion Reactions: No Reported Reaction Smoking Status: Current every day smoker - Past Family History Mother Family Medical History: No Reported History Father Additional Family Medical History / Comment(s): cardiovascular swelling Medications and Allergies Home Medications Medication Instructions Recorded Confirmed Type HYDROcodone/APAP 10-325MG [[place] 1 tab PO QID PRN 04/03/17 12/09/18 History 10-325] Loratadine [Claritin] 10 mg PO DAILY 04/03/17 12/09/18 History Furosemide [Lasix] 20 mg PO DAILY 12/09/18 12/09/18 History Potassium Chloride ER [K-Dur 10] 10 meq PO DAILY 12/09/18 12/09/18 History Topiramate [Topamax] 25 mg PO BID 12/09/18 12/09/18 History ALPRAZolam [Xanax] 0.5 mg PO DAILY PRN #0 12/10/18 12/09/18 Rx Amoxic-Pot Clav 875-125Mg 1 tab PO Q12HR #10 tablet 12/10/18 Rx [Augmentin 875-125] Atorvastatin [Lipitor] 40 mg PO DAILY #30 tab 12/10/18 Rx Nicotine 21Mg/24Hr Patch [Habitrol] 1 each TRANSDERM DAILY #14 patch 12/10/18 Rx methylPREDNISolone Dose Pack 4 mg PO DIRECTED #21 package 12/10/18 Rx [Medrol Dose Pack] Allergies Allergy/AdvReac Type Severity Reaction Status Date / Time propoxyphene Allergy Rash/Hives Verified 12/09/18 23:06 [From Sissy] Physical Exam Vitals: Vital Signs Temp Pulse Pulse Resp BP BP BP 12/10/18 11:20 98.0 F 76 18 106/71 12/10/18 08:40 16 12/10/18 08:00 72 16 12/10/18 07:10 98.0 F 72 18 112/73 12/10/18 04:00 16 12/10/18 03:46 98.0 F 69 16 107/65 12/09/18 23:57 16 12/09/18 23:48 97.5 F L 82 16 115/77 12/09/18 21:22 77 18 109/80 12/09/18 19:18 98.0 F 108 H 24 128/81 Pulse Ox 12/10/18 11:20 98 12/10/18 08:40 97 12/10/18 08:00 12/10/18 07:10 98 12/10/18 04:00 12/10/18 03:46 99 12/09/18 23:57 12/09/18 23:48 98 12/09/18 21:22 98 12/09/18 19:18 100 Intake and Output 12/09/18 12/10/18 12/10/18 22:59 06:59 14:59 Intake Total 320 Balance 320 Intake: Oral 320 Other: # Voids 1 Weight 82.554 kg PHYSICAL EXAMINATION: GENERAL: The patient is alert and oriented x3, not in any acute distress. Well developed, well nourished. HEENT: Pupils are round and equally reacting to light. EOMI. No scleral icterus. No conjunctival pallor. Normocephalic, atraumatic. She does have pharyngeal erythema and hoarseness of voice No thyromegaly. CARDIOVASCULAR: S1 and S2 present. No murmurs, rubs, or gallops. PULMONARY: Chest is clear to auscultation, no wheezing or crackles. ABDOMEN: Soft, nontender, nondistended, normoactive bowel sounds. No palpable organomegaly. MUSCULOSKELETAL: No joint swelling or deformity. EXTREMITIES: No cyanosis, clubbing, or pedal edema. NEUROLOGICAL: Gross neurological examination did not reveal any focal deficits. SKIN: No rashes. Results CBC & Chem 7: 12/10/18 07:26 12/09/18 19:45 Labs: Abnormal Lab Results - Last 24 Hours (Table) 12/09/18 12/09/18 12/10/18 Range/Units 19:45 19:45 07:26 WBC 17.9 H (3.8-10.6) k/uL Neutrophils # (Manual) 10.90 H (1.3-7.7) k/uL Lymphocytes # (Manual) 6.80 H (1.0-4.8) k/uL APTT (22.0-30.0) sec BUN 19 H (7-17) mg/dL Total Protein 8.3 H (6.3-8.2) g/dL Triglycerides 281 H (<150) mg/dL Cholesterol 278 H (<200) mg/dL LDL Cholesterol, Calc 176 H (0-99) mg/dL 12/10/18 Range/Units 07:26 WBC (3.8-10.6) k/uL Neutrophils # (Manual) (1.3-7.7) k/uL Lymphocytes # (Manual) (1.0-4.8) k/uL APTT 47.7 H (22.0-30.0) sec BUN (7-17) mg/dL Total Protein (6.3-8.2) g/dL Triglycerides (<150) mg/dL Cholesterol (<200) mg/dL LDL Cholesterol, Calc (0-99) mg/dL Assessment and Plan Plan: -Chest pain noncardiac musculoskeletal ruled out acute coronary syndromes outpatient stress test patient underwent evaluation by cardiology was ruled out unstable angina. -Hoarseness of voice and pharyngitis: Patient denied any acid reflux symptoms patient will be discharged on Augmentin patient may benefit from evaluation by ENT. Prescription for Medrol Dosepak was provided a she'll follow with PCP -Chronic low back pain with radiculopathy patient was recommended to use nonsteroidal anti-inflammatories for this and patient may benefit from outpatient physical therapy -Anxiety disorder: Patient will be prescribed Prozac we'll cut down the dose of Xanax -Nicotine abuse: Counseling was provided patient is requesting for nicotine transdermal patches prescription of which will be provided -Marijuana use: Counseling was provided
[2018-12-11] MEDS ORDERED: ATORVASTATIN 40 MG TAB PO SCH (09:00)
== END 2018-12-10 13:12 | disposition home or self-care (01) ==
LOC: EC 19:15 → 1SOBS 21:36
PROVIDERS: ADMIT Hospitalist; ATTEND Hospitalist
DX: R07.89 Other chest pain (principal); F17.210 Nicotine dependence, cigarettes, uncomplicated; J02.9 Acute pharyngitis, unspecified; R06.02 Shortness of breath; G89.29 Other chronic pain; M54.5 Low back pain; G62.9 Polyneuropathy, unspecified; F41.9 Anxiety disorder, unspecified; K21.9 Gastro-esophageal reflux disease without esophagitis; Z90.710 Acquired absence of both cervix and uterus; Z71.6 Tobacco abuse counseling; Z71.51 Drug abuse counseling and surveillance of drug abuser; Z79.899 Other long term (current) drug therapy; Z88.5 Allergy status to narcotic agent
CPT/HCPCS: 96361 ×3; 96375 ×2; 96376 ×2; 96365; 99285; 36415; 93005; 93306; 85379; 83880; 80061; 80053; 83690; 83735; 84484 ×2; 85025; 85049; 85610; 85730 ×2; 71046; 71275; G0378 ×2; S4990; J2060; J1644 ×2; J2270 ×2; Q9967

== ENCOUNTER → 2019-05-13 | Outpatient (CLI) | payer MEDICARE ==
[2019-05-13 10:23] LABS: Basophils # (A) 0.1 k/uL (0-0.2); Basophils % (A) 1 %; Eosinophils # (A) 0.5 k/uL (0-0.7); Eosinophils % (A) 6 %; HCT 43.6 % (34.0-46.0); HGB 14.8 gm/dL (11.4-16.0); Lymphocytes # (A) 2.5 k/uL (1.0-4.8); Lymphocytes % (A) 26 %; MCH 30.5 pg (25.0-35.0); MCV 89.9 fL (80.0-100.0); Mean Platelet Volume 7.3; Monocytes # (A) 0.3 k/uL (0-1.0); Monocytes % (A) 3 %; Neutrophils # (A) 6.1 k/uL (1.3-7.7); Neutrophils % (A) 63 %; Platelet Count 241 k/uL (150-450); RBC 4.85 m/uL (3.80-5.40); RDW 14.8 % (11.5-15.5); WBC 9.6 k/uL (3.8-10.6)
[2019-05-13 17:09] LABS: Protein, Total 6.4 g/dL (6.2-8.2)
[2019-05-13 17:22] LABS: Gliadin AB IgA, Deaminated NEGATIVE (NEGATIVE); Gliadin AB IgA, Unit <0.2 U/mL; Gliadin AB IgG, Deaminated NEGATIVE (NEGATIVE)
[2019-05-13 18:10] LABS: African American GFR (CKD) 106.9 (60.0-200.0); Albumin 4.2 g/dL (3.80-4.90); Anion Gap 6.1 mmol/L (4.00-12.00); BUN/Creat Ratio 17.5 Ratio (12.00-20.00); Calcium 9.5 mg/dL (8.7-10.3); Carbon Dioxide 26.9 mmol/L (21.6-31.8); Globulin 2.1 g/dL (1.6-3.3); Potassium 4.5 mmol/L (3.5-5.5); Total Bilirubin 0.2 mg/dL (0.2-1.2); Total Protein 6.3 g/dL (6.2-8.2)
[2019-05-13 18:14] LABS: Iron Saturation 12.69 (12.00-45.00)
[2019-05-14 10:45] LABS: Albumin 3.22 g/dL (3.80-4.90); Gamma Globulin 0.83 g/dL (0.70-1.50)
[2019-05-14 11:52] LABS: Liver/Kidney Microsome Antibod 0.6 UNITS (<=20)
[2019-05-14 12:19] LABS: Ceruloplasmin 33.4 mg/dL (20.0-60.0)
== END | disposition home or self-care (01) ==
LOC: LABWHC1 09:24
PROVIDERS: ATTEND Internal Medicine
DX: R74.8 Abnormal levels of other serum enzymes (principal)
CPT/HCPCS: 36415; 80053; 80074; 82103; 82390; 82728; 83516; 83540; 83550; 84165; 85025; 86038; 86376

== ENCOUNTER → 2019-06-28 | Outpatient (CLI) | payer MEDICARE, OTHER ==
--- NOTE | 2019-06-29 22:08 | CT ---
EXAMINATION TYPE: CT soft tissue neck w con DATE OF EXAM: 06/28/2019 COMPARISON: Chest 12/09/2018 HISTORY: 38-year-old female Bilateral neck swelling Post OP vocal cord mass removal. Prior FNA x's 2 TECHNIQUE: Contiguous axial scanning of the soft tissues of the neck performed with IV Contrast, joy ent injected with 100 mL of Isovue 300. Coronal/sagittal reconstructions performed. CT DLP: 541.2 mGycm Automated exposure control for dose reduction was used. FINDINGS: Small air-fluid levels within the bilateral maxillary sinuses with moderate to severe mucosal thicken ing ethmoid air cells. Rightward nasal septal deviation. Visualized intracranial structures and visualized orbits and globes as well as the mastoid air cells appear clear. Nasopharynx appears clear. Oropharynx appears clear. Glottic and subglottic structures as well as the tracheal column appear clear. Visualized upper lungs show mild diffuse bronchial wall thickening that could reflect bronchitis or asthma. Thyroid, submandibular, and parotid glands appear satisfactory. A borderline enlarged 1.4 cm station 2A lymph node along the lateral left upper neck, axial image 73 and sagittal image 53. Otherwise, additional scattered nonenlarged lymph nodes are present on both si keisha of the neck. A prominent but not enlarged 1.1 cm right axillary lymph node noted. Previously having measured 9 mm on 12/09/2018. Bones: Osseous destructive process. IMPRESSION: 1. BORDERLINE ENLARGED 1.4 CM LEFT UPPER CERVICAL LYMPH NODE, AXIAL IMAGE 73 AND SAGITTAL IMAGE 53. T HIS IS PROBABLY REACTIVE/POST INFLAMMATORY AND CAN BE FOLLOWED CLINICALLY. IF ANY ENLARGING PALPABLE AREA IS DETECTED, TARGETED ULTRASOUND VERSUS REPEAT CT CAN BE PERFORMED. 2. CORRELATE FOR ACUTE MAXILLARY SINUSITIS. MODERATE TO SEVERE CHRONIC ETHMOID SINUS DISEASE.
== END | disposition home or self-care (01) ==
LOC: RADCTMAIN 08:57
PROVIDERS: ATTEND Otolaryngology
DX: R59.0 Localized enlarged lymph nodes (principal)
CPT/HCPCS: 70491; Q9967

== ENCOUNTER → 2019-07-25 | Outpatient (CLI) | payer MEDICARE ==
[2019-07-25 18:44] LABS: Protein, Total 6.8 g/dL (6.2-8.2)
[2019-07-25 19:48] LABS: African American GFR (CKD) 92.7 (60.0-200.0); Albumin 4.7 g/dL (3.80-4.90); Albumin/Globulin Ratio 2.24 (1.60-3.17); Anion Gap 6.1 mmol/L (4.00-12.00); BUN/Creat Ratio 16.67 Ratio (12.00-20.00); Calcium 9.7 mg/dL (8.7-10.3); Carbon Dioxide 27.9 mmol/L (21.6-31.8); Globulin 2.1 g/dL (1.6-3.3); Potassium 4.5 mmol/L (3.5-5.5); Total Bilirubin 0.3 mg/dL (0.3-1.2); Total Protein 6.8 g/dL (6.2-8.2)
== END ==
LOC: LABWHC1 13:11
PROVIDERS: ATTEND Internal Medicine
DX: R74.8 Abnormal levels of other serum enzymes (principal); R89.8 Other abnormal findings in specimens from other organs, systems and tissues
CPT/HCPCS: 36415; 80053; 84165

== ENCOUNTER → 2020-02-06 | Outpatient (CLI) | payer MEDICARE, OTHER ==
[2020-02-06 11:29] LABS: HCT 40.3 % (34.0-46.0); HGB 13.9 gm/dL (11.4-16.0); MCH 31.2 pg (25.0-35.0); MCHC 34.5 g/dL (31.0-37.0); MCV 90.5 fL (80.0-100.0); Mean Platelet Volume 7.3; Platelet Count 273 k/uL (150-450); RBC 4.46 m/uL (3.80-5.40); RDW 12.6 % (11.5-15.5); WBC 10.4 k/uL (3.8-10.6)
[2020-02-06 18:59] LABS: African American GFR (CKD) 106.1 (60.0-200.0); Albumin 4.8 g/dL (3.80-4.90); Anion Gap 8.4 mmol/L (4.00-12.00); BUN/Creat Ratio 17.5 Ratio (12.00-20.00); Calcium 10.1 mg/dL (8.7-10.3); Carbon Dioxide 27.6 mmol/L (21.6-31.8); Globulin 2.4 g/dL (1.6-3.3); Non-African American GFR(CKD) 91.6 (60.0-200.0); Potassium 4.4 mmol/L (3.5-5.5); Total Bilirubin 0.3 mg/dL (0.2-1.2); Total Protein 7.2 g/dL (6.2-8.2)
[2020-02-09 23:57] LABS: Hepatitis A Antibody IgM Non-Reactive (Non-Reactive); Hepatitis B Core IgM Non-Reactive (Non-Reactive); Hepatitis B Surface Antigen Non-Reactive (Non-Reactive); Hepatitis C IgG Antibody Non-Reactive (Non-Reactive)
== END | disposition home or self-care (01) ==
LOC: LABWHC1 10:35
PROVIDERS: ATTEND Internal Medicine
DX: R53.83 Other fatigue (principal); M79.7 Fibromyalgia; E55.9 Vitamin D deficiency, unspecified
CPT/HCPCS: 36415; 80053; 80074; 82306; 82607; 84207; 84260; 84439; 84443; 85027; 86038

== ENCOUNTER 2020-02-17 11:17 | Day surgery (SDC) | payer MEDICARE, OTHER ==
[2020-02-13 13:07] VITALS: BMI 29.0
[~2020-02-17 11:17] MED LIST: LACTATED RINGERS 1,000 ML IV SCH
[2020-02-17 11:35] VITALS: RESP 16; TEMP 97.2
[2020-02-17] MEDS ORDERED: LIDOCAINE 1% (10MG/ML) FOR IV START INTRADERMA ONE (11:50)
[2020-02-17] MEDS ORDERED: fentaNYL (PF) 50 MCG/ML 2 ML AMP ONE (12:12)
[2020-02-17] MEDS ORDERED: PROPOFOL 10 MG/ML 20 ML VIAL IV ONE (12:12)
[2020-02-17] MEDS ORDERED: MIDAZOLAM 2 MG/2 ML VIAL ONE (12:12)
[2020-02-17] MEDS ORDERED: LIDOCAINE 1% INJ 10MG/ML (20 ML MDV) ONE (12:12)
--- NOTE | 2020-02-17 12:48 | P.PCN ---
Date of Procedure: 02/17/20 Description of Procedure: BRIEF HISTORY: Patient is a 39-year-old female seen. Patient EGD and colonoscopy for evaluation of epigastric abdominal pain and blood per rectum. She reports feeling epigastric burning with occasional pill-induced esophagitis. It was tried on omeprazole therapy twice daily but denies any improvement. He never followed up after her last appointment. She also reports daily further blood per rectum. Procedure performed: Esophagogastroduodenoscopy with biopsy Colonoscopy with biopsy Estimated blood loss: Minimal. Preoperative diagnosis: Epigastric abdominal pain, rectal bleeding Anesthesia: [facility] [place] Procedure: After informed consent was obtained from the patient was brought into the endoscopy unit and IV sedation was administered by anesthesia under continuous monitoring. Initially upper endoscopy was done. The Olympus GF 190 video endoscope was inserted into the mouth and esophagus intubated without any difficulty and was gradually advanced into the stomach and duodenum and carefully examined. The bulb and second part of the duodenum appeared normal, with biopsies taken. The scope was then withdrawn into the stomach adequately insufflated with air and upon careful examination the antrum and body, cardia and fundus appeared normal, except for mild punctate erythema and body suggestive of mild gastritis with biopsies taken. The scope was then withdrawn into the esophagus. The GE junction was located at 37 cm to the incisors, with biopsies taken. It appeared regular with no erythema erosions or ulcerations. Rest of the esophagus appeared normal. Patient tolerated the procedure well. At this time the patient continued to remain sedation. Initial digital rectal examination was normal. Olympus CF 190 video colonoscope was then inserted into the rectum and gradually advanced to the cecum without any difficulty. Careful examination was performed as the scope was gradually being withdrawn. The prep was excellent. The cecum, ascending colon, transverse colon, descending colon, sigmoid colon and rectum appeared normal, with biopsies taken of the right colon, transverse colon, left colon and rectum. The terminal ileum was also intubated and appeared grossly normal except for some mild scattered erythema and 2 superficial ulcerations consistent with mild ileitis with biopsies taken. Retroflexion was performed in the rectum and no lesions were noted, low-grade internal hemorrhoids noted. Patient tolerated the procedure well. Impression: 1. Mild gastritis antrum and body, biopsied. Biopsies of the duodenum and GE junction. 2. Mild ileitis of unknown etiology, biopsied. Low-grade internal hemorrhoids. Otherwise normal-appearing colon from rectum to cecum with random biopsies taken of the right colon, transverse colon, left colon and rectum. Recommendations: Findings of this examination were discussed with the patient. Okay to resume diet. Okay to resume medications. Would recommend follow-up in 2-3 weeks for results of biopsies and further treatment planning at that time. Local hemorrhoidal care if patient sees further bleeding.
[2020-02-17] MEDS ORDERED: ONDANSETRON 4 MG/2 ML VIAL ONE (13:00)
[2020-02-17] MEDS ORDERED: ONDANSETRON 4 MG/2 ML VIAL IVP ONE (13:00)
[2020-02-17 13:12] VITALS: BP 126/83; PULSE 73
== END 2020-02-17 13:55 | disposition home or self-care (01) ==
LOC: ORWHC2ENDO 11:17
PROVIDERS: ATTEND Internal Medicine
DX: K29.51 Unspecified chronic gastritis with bleeding (principal); K52.9 Noninfective gastroenteritis and colitis, unspecified; K64.8 Other hemorrhoids; K22.8 Other specified diseases of esophagus; K63.89 Other specified diseases of intestine; M79.7 Fibromyalgia; Z87.891 Personal history of nicotine dependence; Z88.5 Allergy status to narcotic agent; Z79.891 Long term (current) use of opiate analgesic; Z79.899 Other long term (current) drug therapy; Z90.710 Acquired absence of both cervix and uterus; Z98.890 Other specified postprocedural states
CPT/HCPCS: 88305; 45380; 43239; J2250; J2405; J2001; J3010; J2704

== ENCOUNTER 2020-02-19 09:49 | Emergency (ER) | payer MEDICARE, OTHER ==
[2020-02-19 09:58] VITALS: RESP 18; TEMP 98.5
[2020-02-19] MEDS ORDERED: SODIUM CHLORIDE 0.9% 1,000 ML IV STA (10:23)
[2020-02-19] MEDS ORDERED: METOCLOPRAMIDE 5 MG/ML 2 ML VIAL IVP STA (10:23)
--- NOTE | 2020-02-19 10:37 | ED ---
Nausea/Vomiting/Diarrhea HPI - General Chief complaint: Nausea/Vomiting/Diarrhea Stated complaint: vomiting Time Seen by Provider: 02/19/20 10:02 Source: patient Mode of arrival: wheelchair Limitations: no limitations - History of Present Illness Initial comments: Patient is a 39-year-old female, with history of fibromyalgia, presenting to the emergency Department with complaints of nausea, vomiting, abdominal cramping since Sunday. Patient states she was in the hospital on Sunday for a colonoscopy, and endoscope and when she woke up after anesthesia she started having nausea and vomiting. Patient states she is unable to stop since then. Patient states she has tried small amounts of crackers small sips of water however she continues to be nauseous and vomiting. She has tried Zofran at home which works enough for her to fall asleep position as she wakes up she starts vomiting again. Patient states the abdominal pain is mostly all around cramping. She denies any chest pain, shortness of breath, diarrhea. She states she has had little urine output secondary to not be able to drink anything. She denies any recent fever or chills. She has no further complaints at this time. Upon arrival to the ER, her vital signs are stable. - Related Data Home Medications Medication Instructions Recorded Confirmed HYDROcodone/APAP 10-325MG [[place] 1 tab PO QID PRN 04/03/17 02/19/20 10-325] Loratadine [Claritin] 10 mg PO DAILY 04/03/17 02/19/20 ALPRAZolam [Xanax] 2 mg PO DAILY PRN 02/13/20 02/19/20 Ergocalciferol [Vitamin D2] 50,000 unit PO BENOIT 02/13/20 02/19/20 Previous Rx's Medication Instructions Recorded Metoclopramide [Reglan] 10 mg PO TID PRN #10 tab 02/19/20 Allergies Allergy/AdvReac Type Severity Reaction Status Date / Time propoxyphene Allergy Rash/Hives Verified 02/19/20 10:32 [From Sissy] Review of Systems ROS Statement: Those systems with pertinent positive or pertinent negative responses have been documented in the HPI. ROS Other: All systems not noted in ROS Statement are negative. Past Medical History Past Medical History: Fibromyalgia Additional Past Medical History / Comment(s): DDD , BULDGING DISCS, NEUROPATHY LEGS.,THYROID NODULES, HX ANEMIA, ENVIRONMENTAL ALLERGIES, CONSTIPATION & DIARRHEA, STATES VOMITING AND STOMACH PAIN FOR SEVERAL MONTHS. History of Any Multi-Drug Resistant Organisms: None Reported Past Surgical History: Hysterectomy, Orthopedic Surgery Additional Past Surgical History / Comment(s): rt wrist/forearm ,D&C, MASS ON VOCAL CORD SURGERY, AND BX. Past Anesthesia/Blood Transfusion Reactions: No Reported Reaction Additional Past Anesthesia/Blood Transfusion Reaction / Comment(s): CONSTIPATION POST-OP Past Psychological History: Anxiety, Depression Smoking Status: Former smoker Past Alcohol Use History: None Reported, Occasional Past Drug Use History: Marijuana - Past Family History Mother Family Medical History: No Reported History Father Additional Family Medical History / Comment(s): cardiovascular swelling General Exam - General Exam Comments Initial Comments: GENERAL: Well-appearing, well-nourished and in no acute distress. HEAD: Atraumatic, normocephalic. EYES: Pupils equal round and reactive to light, extraocular movements intact, sclera anicteric, conjunctiva are normal. ENT: TMs normal, nares patent, oropharynx clear without exudates. Dry mucous membranes. NECK: Normal range of motion, supple without lymphadenopathy or JVD. LUNGS: Breath sounds clear to auscultation bilaterally and equal. No wheezes rales or rhonchi. HEART: Regular rate and rhythm without murmurs, rubs or gallops. ABDOMEN: Generalized abdominal discomfort, no specific area of pain. Soft, normoactive bowel sounds. No guarding, no rebound. No masses appreciated. : Deferred EXTREMITIES: Normal range of motion, no pitting or edema. No clubbing or cyanosis. NEUROLOGICAL: Cranial nerves II through XII grossly intact. Normal speech, normal gait. PSYCH: Normal mood, normal affect. SKIN: Warm, Dry, normal turgor, no rashes or lesions noted. Limitations: no limitations Course Vital Signs 02/19/20 02/19/20 02/19/20 09:55 09:57 11:12 Temperature 98.5 F Pulse Rate 78 Respiratory 18 18 18 Rate Blood Pressure 111/72 O2 Sat by Pulse 97 Oximetry 02/19/20 13:15 Temperature Pulse Rate 70 Respiratory 18 Rate Blood Pressure 118/68 O2 Sat by Pulse 99 Oximetry Medical Decision Making - Medical Decision Making Patient is a 39-year-old female here for nausea, vomiting x 2 days after waking up from a colonoscopy, endoscope. Her vital signs are stable upon arrival. Her exam reveals some very mild generalized abdominal discomfort, no specific area of pain. Lab work showed some slight leukocytosis, most likely reactive, some elevated liver enzymes which are chronic in nature. Lactic acid is normal. Received Zofran, Reglan, fluids as well as Bentyl. She reports improvement in her symptoms. Upon reexamination she had no abdominal tenderness. She is requesting to be discharged to go rest at home. Patient does have Zofran at home, I did send for some Reglan as well. She is in agreement with this plan of care. She will follow up with her PCP. Return parameters were discussed with the patient and she verbalized understanding. Case discussed with Dr. Thapa. - Lab Data Result diagrams: 02/19/20 10:32 02/19/20 10:32 Lab Results 02/19/20 02/19/20 02/19/20 Range/Units 10:32 10:32 10:32 WBC 15.7 H (3.8-10.6) k/uL RBC 4.62 (3.80-5.40) m/uL Hgb 14.6 (11.4-16.0) gm/dL Hct 41.6 (34.0-46.0) % MCV 90.0 (80.0-100.0) fL MCH 31.7 (25.0-35.0) pg MCHC 35.2 (31.0-37.0) g/dL RDW 12.5 (11.5-15.5) % Plt Count 320 (150-450) k/uL Neutrophils % 78 % Lymphocytes % 17 % Monocytes % 3 % Eosinophils % 0 % Basophils % 0 % Neutrophils # 12.2 H (1.3-7.7) k/uL Lymphocytes # 2.7 (1.0-4.8) k/uL Monocytes # 0.5 (0-1.0) k/uL Eosinophils # 0.1 (0-0.7) k/uL Basophils # 0.1 (0-0.2) k/uL Sodium 138 (137-145) mmol/L Potassium 4.0 (3.5-5.1) mmol/L Chloride 100 (98-107) mmol/L Carbon Dioxide 25 (22-30) mmol/L Anion Gap 13 mmol/L BUN 19 H (7-17) mg/dL Creatinine 0.83 (0.52-1.04) mg/dL Est GFR (CKD-EPI)AfAm >90 (>60 ml/min/1.73 sqM) Est GFR (CKD-EPI)NonAf 88 (>60 ml/min/1.73 sqM) Glucose 143 H (74-99) mg/dL Plasma Lactic Acid Zaid 1.7 (0.7-2.0) mmol/L Calcium 10.5 H (8.4-10.2) mg/dL Total Bilirubin 0.5 (0.2-1.3) mg/dL AST 35 (14-36) U/L ALT 55 H (4-34) U/L Alkaline Phosphatase 142 H (38-126) U/L Total Protein 8.6 H (6.3-8.2) g/dL Albumin 5.2 H (3.5-5.0) g/dL Lipase 65 (23-300) U/L Disposition Clinical Impression: Nausea and vomiting, Epigastric pain Disposition: HOME SELF-CARE Condition: Stable Instructions (If sedation given, give patient instructions): Acute Nausea and Vomiting (ED) Additional Instructions: Please return to the Emergency Department if symptoms worsen or any other concerns. May use Zofran or Reglan as needed for nausea. Follow up with PCP. Prescriptions: Metoclopramide [Reglan] 10 mg PO TID PRN #10 tab PRN Reason: GERD Is patient prescribed a controlled substance at d/c from ED?: No Referrals: Digna Alonso MD [Primary Care Provider] - 1-2 days
[2020-02-19 10:52] LABS: Basophils # (A) 0.1 k/uL (0-0.2); Basophils % (A) 0 %; Eosinophils # (A) 0.1 k/uL (0-0.7); Eosinophils % (A) 0 %; HCT 41.6 % (34.0-46.0); HGB 14.6 gm/dL (11.4-16.0); Lymphocytes # (A) 2.7 k/uL (1.0-4.8); Lymphocytes % (A) 17 %; MCH 31.7 pg (25.0-35.0); MCHC 35.2 g/dL (31.0-37.0); Mean Platelet Volume 7.8; Monocytes # (A) 0.5 k/uL (0-1.0); Monocytes % (A) 3 %; Neutrophils # (A) 12.2 k/uL (1.3-7.7); Neutrophils % (A) 78 %; Platelet Count 320 k/uL (150-450); RBC 4.62 m/uL (3.80-5.40); RDW 12.5 % (11.5-15.5); WBC 15.7 k/uL (3.8-10.6)
[2020-02-19] MEDS ORDERED: PANTOPRAZOLE 40 MG/10 ML VIAL IVP STA (10:57)
[2020-02-19 11:02] LABS: ALT 55 U/L (4-34); AST 35 U/L (14-36); African American GFR (CKD) >90 (>60 ml/min/1.73 sqM); Albumin 5.2 g/dL (3.5-5.0); Alkaline Phosphatase 142 U/L (38-126); Anion Gap 13 mmol/L; Blood Urea Nitrogen 19 mg/dL (7-17); Calcium 10.5 mg/dL (8.4-10.2); Carbon Dioxide 25 mmol/L (22-30); Chloride 100 mmol/L (98-107); Glucose 143 mg/dL (74-99); Non-African American GFR(CKD) 88 (>60 ml/min/1.73 sqM); Sodium 138 mmol/L (137-145); Total Bilirubin 0.5 mg/dL (0.2-1.3); Total Protein 8.6 g/dL (6.3-8.2)
[2020-02-19] MEDS ORDERED: ONDANSETRON 4 MG/2 ML VIAL IVP STA (11:56)
[2020-02-19] MEDS ORDERED: DICYCLOMINE 10 MG/ML 2 ML AMP IM STA (13:09)
[2020-02-19 13:15] VITALS: BP 118/68; PULSE 70
== END 2020-02-19 14:02 | disposition home or self-care (01) ==
LOC: EC 09:49
DX: R11.2 Nausea with vomiting, unspecified (principal); R10.13 Epigastric pain; R10.84 Generalized abdominal pain; F41.9 Anxiety disorder, unspecified; D72.829 Elevated white blood cell count, unspecified; R74.0 Nonspecific elevation of levels of transaminase and lactic acid dehydrogenase [LDH]; Z79.899 Other long term (current) drug therapy; Z88.6 Allergy status to analgesic agent; Z87.891 Personal history of nicotine dependence; Z90.710 Acquired absence of both cervix and uterus
CPT/HCPCS: 36415; 80053; 83605; 83690; 85025; 99284; 96372; 96374; 96375 ×2; 96361; J0500; J2765; J2405; C9113

== ENCOUNTER 2020-06-10 22:07 | Emergency (ER) | payer MEDICARE, OTHER ==
[2020-06-10] MEDS ORDERED: diphenhydrAMINE 50 MG/ML 1 ML VIAL IVP STA (23:08)
[2020-06-10] MEDS ORDERED: MORPHINE SULFATE 4 MG/ML SYRINGE IVP STA (23:08)
[2020-06-10] MEDS ORDERED: ONDANSETRON 4 MG/2 ML VIAL IVP STA (23:08)
[2020-06-10] MEDS ORDERED: SODIUM CHLORIDE 0.9% 1,000 ML IV STA ×2 (23:08)
[2020-06-10] MEDS ORDERED: PANTOPRAZOLE 40 MG/10 ML VIAL IVP STA (23:08)
[2020-06-10] MEDS ORDERED: METOCLOPRAMIDE 5 MG/ML 2 ML VIAL IVP STA (23:08)
--- NOTE | 2020-06-10 23:08 | ED ---
Nausea/Vomiting/Diarrhea HPI - General Chief complaint: Nausea/Vomiting/Diarrhea Stated complaint: NVD Time Seen by Provider: 06/10/20 22:20 Source: patient, RN notes reviewed, old records reviewed Mode of arrival: ambulatory Limitations: no limitations - History of Present Illness Initial comments: This is a 39-year-old female DF for evaluation patient Dese for evaluation persistent nausea vomiting diarrhea this Is a patient every so often. Unknown cause she has had upper GI lower GI showing gastritis and reflux. Irritable bowel syndrome. Patient has no other complaints no recent surgeries active nausea vomiting currently with abdominal pain. No fevers no travel show sick contacts no family members with similar complaint MD complaint: nausea, vomiting, abdominal pain -: days(s) Description of Vomiting: food contents Description of Diarrhea: water Associated Abdominal Pain: Yes Location: diffuse Radiation: none Severity: moderate Severity scale (1-10): 4 Quality: cramping, aching Consistency: constant Improves with: none Worsens with: none Associated Symptoms: denies other symptoms - Related Data Home Medications Medication Instructions Recorded Confirmed HYDROcodone/APAP 10-325MG [[place] 1 tab PO QID PRN 04/03/17 02/19/20 10-325] Loratadine [Claritin] 10 mg PO DAILY 04/03/17 02/19/20 ALPRAZolam [Xanax] 2 mg PO DAILY PRN 02/13/20 02/19/20 Ergocalciferol [Vitamin D2] 50,000 unit PO BENOIT 02/13/20 02/19/20 Previous Rx's Medication Instructions Recorded Metoclopramide [Reglan] 10 mg PO TID PRN #10 tab 02/19/20 Allergies Allergy/AdvReac Type Severity Reaction Status Date / Time propoxyphene Allergy Rash/Hives Verified 06/10/20 22:12 [From Sissy] Review of Systems ROS Statement: Those systems with pertinent positive or pertinent negative responses have been documented in the HPI. ROS Other: All systems not noted in ROS Statement are negative. Past Medical History Past Medical History: Fibromyalgia, Thyroid Disorder Additional Past Medical History / Comment(s): DDD , BULDGING DISCS, NEUROPATHY LEGS.,THYROID NODULES, HX ANEMIA, ENVIRONMENTAL ALLERGIES, CONSTIPATION & DIARRHEA, STATES VOMITING AND STOMACH PAIN FOR SEVERAL MONTHS.IBS History of Any Multi-Drug Resistant Organisms: None Reported Past Surgical History: Hysterectomy, Orthopedic Surgery Additional Past Surgical History / Comment(s): rt wrist/forearm ,D&C, MASS ON VOCAL CORD SURGERY, AND BX. Past Anesthesia/Blood Transfusion Reactions: No Reported Reaction Additional Past Anesthesia/Blood Transfusion Reaction / Comment(s): CONSTIPATION POST-OP Past Psychological History: Anxiety, Depression Smoking Status: Former smoker, Vaper Past Alcohol Use History: None Reported, Occasional Past Drug Use History: Marijuana - Past Family History Mother Family Medical History: No Reported History Father Additional Family Medical History / Comment(s): cardiovascular swelling General Exam Limitations: no limitations General appearance: alert, anxious Head exam: Present: atraumatic, normocephalic, normal inspection Eye exam: Present: normal appearance, PERRL, EOMI. Absent: scleral icterus, conjunctival injection, periorbital swelling ENT exam: Present: normal exam, mucous membranes moist Neck exam: Present: normal inspection. Absent: tenderness, meningismus, lymphadenopathy Respiratory exam: Present: normal lung sounds bilaterally. Absent: respiratory distress, wheezes, rales, rhonchi, stridor Cardiovascular Exam: Present: regular rate, normal rhythm, normal heart sounds. Absent: systolic murmur, diastolic murmur, rubs, gallop, clicks GI/Abdominal exam: Present: soft, normal bowel sounds. Absent: distended, tenderness, guarding, rebound, rigid Extremities exam: Present: normal inspection, full ROM, normal capillary refill. Absent: tenderness, pedal edema, joint swelling, calf tenderness Back exam: Present: normal inspection Neurological exam: Present: alert, oriented X3, CN II-XII intact Psychiatric exam: Present: normal affect, normal mood Skin exam: Present: warm, dry, intact, normal color. Absent: rash Course Vital Signs 06/10/20 06/11/20 22:10 00:51 Temperature 98.1 F Pulse Rate 77 86 Respiratory 20 18 Rate Blood Pressure 135/80 133/75 O2 Sat by Pulse 99 98 Oximetry - Reevaluation(s) Reevaluation #1: 06/10/20 23:24 Medical record is reviewed Reevaluation #2: 06/11/20 01:45 Patient's pain and symptoms are mildly improved Reevaluation #3: 06/11/20 02:51 Patient feels continually improved prefers discharge over admission Medical Decision Making - Medical Decision Making 39 female DF for evaluation persistent nausea and vomiting. Abdominal pain. Symptoms resolved here in the ER patient prefers discharge - Lab Data Result diagrams: 06/10/20 23:26 06/10/20 23:26 Lab Results 06/10/20 06/10/20 06/10/20 Range/Units 23:26 23:26 23:26 WBC 20.8 H (3.8-10.6) k/uL RBC 5.31 (3.80-5.40) m/uL Hgb 16.3 H (11.4-16.0) gm/dL Hct 47.0 H (34.0-46.0) % MCV 88.4 (80.0-100.0) fL MCH 30.6 (25.0-35.0) pg MCHC 34.6 (31.0-37.0) g/dL RDW 12.8 (11.5-15.5) % Plt Count 337 (150-450) k/uL Neutrophils % 82 % Lymphocytes % 12 % Monocytes % 4 % Eosinophils % 1 % Basophils % 1 % Neutrophils # 17.0 H (1.3-7.7) k/uL Lymphocytes # 2.4 (1.0-4.8) k/uL Monocytes # 0.8 (0-1.0) k/uL Eosinophils # 0.2 (0-0.7) k/uL Basophils # 0.2 (0-0.2) k/uL PT 10.2 (9.0-12.0) sec INR 1.0 (<1.2) APTT 23.2 (22.0-30.0) sec Sodium 142 (137-145) mmol/L Potassium 4.0 (3.5-5.1) mmol/L Chloride 97 L (98-107) mmol/L Carbon Dioxide 31 H (22-30) mmol/L Anion Gap 14 mmol/L BUN 27 H (7-17) mg/dL Creatinine 1.06 H (0.52-1.04) mg/dL Est GFR (CKD-EPI)AfAm 76 (>60 ml/min/1.73 sqM) Est GFR (CKD-EPI)NonAf 66 (>60 ml/min/1.73 sqM) Glucose 142 H (74-99) mg/dL Plasma Lactic Acid Zaid (0.7-2.0) mmol/L Calcium 11.0 H (8.4-10.2) mg/dL Phosphorus 3.8 (2.5-4.5) mg/dL Magnesium 2.3 (1.6-2.3) mg/dL Total Bilirubin 0.8 (0.2-1.3) mg/dL AST 52 H (14-36) U/L ALT 105 H (4-34) U/L Alkaline Phosphatase 151 H (38-126) U/L Creatine Kinase 230 H (30-135) U/L Troponin I (0.000-0.034) ng/mL Total Protein 9.7 H (6.3-8.2) g/dL Albumin 5.6 H (3.5-5.0) g/dL Lipase (23-300) U/L 06/10/20 06/10/20 06/10/20 Range/Units 23:26 23:26 23:26 WBC (3.8-10.6) k/uL RBC (3.80-5.40) m/uL Hgb (11.4-16.0) gm/dL Hct (34.0-46.0) % MCV (80.0-100.0) fL MCH (25.0-35.0) pg MCHC (31.0-37.0) g/dL RDW (11.5-15.5) % Plt Count (150-450) k/uL Neutrophils % % Lymphocytes % % Monocytes % % Eosinophils % % Basophils % % Neutrophils # (1.3-7.7) k/uL Lymphocytes # (1.0-4.8) k/uL Monocytes # (0-1.0) k/uL Eosinophils # (0-0.7) k/uL Basophils # (0-0.2) k/uL PT (9.0-12.0) sec INR (<1.2) APTT (22.0-30.0) sec Sodium (137-145) mmol/L Potassium (3.5-5.1) mmol/L Chloride (98-107) mmol/L Carbon Dioxide (22-30) mmol/L Anion Gap mmol/L BUN (7-17) mg/dL Creatinine (0.52-1.04) mg/dL Est GFR (CKD-EPI)AfAm (>60 ml/min/1.73 sqM) Est GFR (CKD-EPI)NonAf (>60 ml/min/1.73 sqM) Glucose (74-99) mg/dL Plasma Lactic Acid Zaid 1.5 (0.7-2.0) mmol/L Calcium (8.4-10.2) mg/dL Phosphorus (2.5-4.5) mg/dL Magnesium (1.6-2.3) mg/dL Total Bilirubin (0.2-1.3) mg/dL AST (14-36) U/L ALT (4-34) U/L Alkaline Phosphatase (38-126) U/L Creatine Kinase (30-135) U/L Troponin I <0.012 (0.000-0.034) ng/mL Total Protein (6.3-8.2) g/dL Albumin (3.5-5.0) g/dL Lipase 85 (23-300) U/L - EKG Data -: EKG Interpreted by Me (EKG is sinus rhythm 60 AR 108 QRS 86 QTc 444) - Radiology Data Radiology results: report reviewed (Ultrasound gallbladder is negative for acute disease), image reviewed Disposition Clinical Impression: Dehydration, Gastroenteritis, Nausea & vomiting Disposition: HOME SELF-CARE Condition: Good Instructions (If sedation given, give patient instructions): Acute Nausea and Vomiting (ED) Is patient prescribed a controlled substance at d/c from ED?: No Referrals: Digna Alonso MD [Primary Care Provider] - 1-2 days
[2020-06-10 23:54] LABS: Basophils # (A) 0.2 k/uL (0-0.2); Basophils % (A) 1 %; Eosinophils # (A) 0.2 k/uL (0-0.7); Eosinophils % (A) 1 %; HGB 16.3 gm/dL (11.4-16.0); Lymphocytes # (A) 2.4 k/uL (1.0-4.8); Lymphocytes % (A) 12 %; MCH 30.6 pg (25.0-35.0); MCHC 34.6 g/dL (31.0-37.0); MCV 88.4 fL (80.0-100.0); Mean Platelet Volume 7.4; Monocytes # (A) 0.8 k/uL (0-1.0); Monocytes % (A) 4 %; Neutrophils % (A) 82 %; Platelet Count 337 k/uL (150-450); RBC 5.31 m/uL (3.80-5.40); RDW 12.8 % (11.5-15.5); WBC 20.8 k/uL (3.8-10.6)
[2020-06-11 00:06] LABS: Albumin 5.6 g/dL (3.5-5.0); Magnesium 2.3 mg/dL (1.6-2.3); Phosphorus 3.8 mg/dL (2.5-4.5); Total Bilirubin 0.8 mg/dL (0.2-1.3); Total Protein 9.7 g/dL (6.3-8.2)
[2020-06-11] MEDS ORDERED: SODIUM CHLORIDE 0.9% 1,000 ML IV STA (00:21)
[2020-06-11 00:29] LABS: Partial Thromboplastin Time 23.2 sec (22.0-30.0); Prothrombin Time 10.2 sec (9.0-12.0)
--- NOTE | 2020-06-11 02:45 | US ---
EXAM: US Abdomen Limited, Gallbladder CLINICAL HISTORY: ITS.REASON US Reason: pain TECHNIQUE: Real-time ultrasound of the right upper quadrant with image documentation. COMPARISON: 04/03/2017. FINDINGS: Liver: The liver is heterogeneously hyperechoic in appearance, measuring 15.8 cm in length. Gallbladder: The gallbladder is mildly distended without cholelithiasis, gallbladder wall thickening or pericholecystic fluid. The gallbladder wall measures 2.4 mm. Common bile duct: The common bile duct measures only 2.8 mm. No stones. No dilation. Pancreas: The visualized pancreas is unremarkable. Right kidney: The right kidney measures 10.8 x 4.7 x 5.7 cm. Inferior vena cava: The IVC is normal in appearance. Free fluid: No free fluid. IMPRESSION: 1. No cholelithiasis or associated sonographic findings to suggest acute cholecystitis. No biliary dilatation. 2. Hepatic steatosis, slightly progressive from the previous examination without hepatomegaly.
[2020-06-11] MEDS ORDERED: ONDANSETRON 4 MG ODT STARTER PACK 2 TAB BTL PO STA (02:52)
[2020-06-11] MEDS ORDERED: ONDANSETRON 4 MG/2 ML VIAL IVP STA (02:52)
[2020-06-11] MEDS ORDERED: MORPHINE SULFATE 4 MG/ML SYRINGE IVP STA (02:52)
[2020-06-11] MEDS ORDERED: traMADol 50 MG STARTER PACK 3 TAB BTL PO STA (02:53)
[2020-06-11 03:15] VITALS: BP 134/96; PULSE 76; RESP 15; TEMP 98.4
== END 2020-06-11 03:15 | disposition home or self-care (01) ==
LOC: EC 22:07
DX: K52.9 Noninfective gastroenteritis and colitis, unspecified (principal); E86.0 Dehydration; F41.9 Anxiety disorder, unspecified; F32.9 Major depressive disorder, single episode, unspecified; Z79.899 Other long term (current) drug therapy; Z88.5 Allergy status to narcotic agent; Z87.891 Personal history of nicotine dependence; Z90.710 Acquired absence of both cervix and uterus
CPT/HCPCS: 36415; 93005; 80053; 82550; 83605; 83690; 83735; 84100; 84484; 85025; 85610; 85730; 76705; 99285; 96374; 96375 ×4; 96376 ×2; 96361 ×4; J2270 ×2; J1200; J2765; J2405 ×2; S0119; C9113

== ENCOUNTER 2020-06-11 17:13 | Observation (INO) | payer MEDICARE, OTHER ==
[2020-06-11] MEDS ORDERED: METOCLOPRAMIDE 5 MG/ML 2 ML VIAL IVP STA (18:07)
[2020-06-11] MEDS ORDERED: SODIUM CHLORIDE 0.9% 1,000 ML IV STA (18:07)
[2020-06-11] MEDS ORDERED: diphenhydrAMINE 50 MG/ML 1 ML VIAL IVP STA (18:07)
[2020-06-11] MEDS ORDERED: DICYCLOMINE 10 MG/ML 2 ML AMP IM STA (18:07)
[2020-06-11] MEDS ORDERED: PANTOPRAZOLE 40 MG/10 ML VIAL IVP STA (18:07)
[2020-06-11 18:49] LABS: Basophils # (A) 0.1 k/uL (0-0.2); Basophils % (A) 1 %; Eosinophils # (A) 0.2 k/uL (0-0.7); Eosinophils % (A) 2 %; HCT 39.5 % (34.0-46.0); Lymphocytes # (A) 2.7 k/uL (1.0-4.8); Lymphocytes % (A) 24 %; MCH 30.2 pg (25.0-35.0); MCHC 33.7 g/dL (31.0-37.0); MCV 89.5 fL (80.0-100.0); Mean Platelet Volume 8.1; Monocytes # (A) 0.5 k/uL (0-1.0); Monocytes % (A) 5 %; Neutrophils # (A) 7.6 k/uL (1.3-7.7); Neutrophils % (A) 68 %; Platelet Count 175 k/uL (150-450); RBC 4.42 m/uL (3.80-5.40); RDW 12.9 % (11.5-15.5); WBC 11.2 k/uL (3.8-10.6)
[2020-06-11 18:51] LABS: HGB 13.3 gm/dL (11.4-16.0)
--- NOTE | 2020-06-11 19:03 | ED ---
Abdominal Pain HPI - General Source: patient Mode of arrival: ambulatory Limitations: no limitations <Aroldo Dominguez - Last Filed: 06/11/20 19:42> <Fátima Farias - Last Filed: 06/13/20 15:20> - General Chief Complaint: Abdominal Pain Stated Complaint: revisit from today Time Seen by Provider: 06/11/20 17:46 - History of Present Illness Initial Comments: Patient is a 39-year-old female with history of IBS presenting to emergency Department with a chief complaint of abdominal pain. Patient reports 3 days ago she ate some [employer] that "did not taste good". States there is no immediate symptoms but when she woke up in the morning, she developed nausea with multiple episodes of nonbilious and nonbloody vomiting. She also reported nonbloody diarrhea. Patient reports the diarrhea has resolved since yesterday but the nausea and vomiting are still continuing. She reports there is some diffuse upper abdominal pain. Patient reports she was in the ED early this morning and received an ultrasound along with laboratory work. States she did have some improvement in her nausea upon discharge, however the nausea returned after she got home. She does report taking Zofran with no significant improvement in her symptoms. Previous surgical history of abdominal hysterectomy. Denies night sweats or chills. No chest pain or shortness of breath. (Aroldo Dominguez) - Related Data Home Medications Medication Instructions Recorded Confirmed HYDROcodone/APAP 10-325MG [[place] 1 tab PO QID PRN 04/03/17 06/11/20 10-325] Loratadine [Claritin] 10 mg PO DAILY 04/03/17 06/11/20 Ergocalciferol [Vitamin D2 50,000 unit PO MO 02/13/20 06/11/20 (DRISDOL)] Dicyclomine [Bentyl] 20 mg PO HS 06/11/20 06/11/20 Pantoprazole Sodium [Protonix] 40 mg PO BID 06/11/20 06/11/20 Previous Rx's Medication Instructions Recorded Ondansetron HCl [Zofran] 4 mg PO Q8H PRN 5 Days #15 tab 06/13/20 metroNIDAZOLE [Flagyl] 500 mg PO Q8HR 5 Days #15 tab 06/13/20 Allergies Allergy/AdvReac Type Severity Reaction Status Date / Time propoxyphene Allergy Rash/Hives Verified 06/11/20 21:29 [From Daramishacet-N] Review of Systems ROS Other: All systems not noted in ROS Statement are negative. <Bob Dominguezo - Last Filed: 06/11/20 19:42> ROS Other: All systems not noted in ROS Statement are negative. <Fátima Farias Radha - Last Filed: 06/13/20 15:20> ROS Statement: Those systems with pertinent positive or pertinent negative responses have been documented in the HPI. Past Medical History Past Medical History: Fibromyalgia, Thyroid Disorder Additional Past Medical History / Comment(s): DDD , BULDGING DISCS, NEUROPATHY LEGS.,THYROID NODULES, HX ANEMIA, ENVIRONMENTAL ALLERGIES, CONSTIPATION & DIARRHEA, STATES VOMITING AND STOMACH PAIN FOR SEVERAL MONTHS.IBS History of Any Multi-Drug Resistant Organisms: None Reported Past Surgical History: Hysterectomy, Orthopedic Surgery Additional Past Surgical History / Comment(s): rt wrist/forearm ,D&C, MASS ON VOCAL CORD SURGERY, AND BX. Past Anesthesia/Blood Transfusion Reactions: No Reported Reaction Additional Past Anesthesia/Blood Transfusion Reaction / Comment(s): CONSTIPATION POST-OP Past Psychological History: Anxiety, Depression Smoking Status: Former smoker, Vaper Past Alcohol Use History: None Reported, Occasional Past Drug Use History: Marijuana - Past Family History Mother Family Medical History: No Reported History Father Additional Family Medical History / Comment(s): cardiovascular swelling <Aroldo Dominguez - Last Filed: 06/11/20 19:42> General Exam Limitations: no limitations General appearance: alert, in no apparent distress Head exam: Present: atraumatic, normocephalic, normal inspection Eye exam: Present: normal appearance, PERRL, EOMI Pupils: Present: normal accommodation ENT exam: Present: normal exam, normal oropharynx, mucous membranes moist, TM's normal bilaterally, normal external ear exam Neck exam: Present: normal inspection, full ROM. Absent: tenderness Respiratory exam: Present: normal lung sounds bilaterally. Absent: respiratory distress, wheezes Cardiovascular Exam: Present: regular rate, normal rhythm, normal heart sounds GI/Abdominal exam: Present: soft. Absent: distended, tenderness, guarding, rebound Extremities exam: Present: normal inspection, full ROM, normal capillary refill. Absent: tenderness Back exam: Present: normal inspection, full ROM. Absent: tenderness, CVA tenderness (R) Neurological exam: Present: alert, oriented X3, normal gait Psychiatric exam: Present: normal affect, normal mood Skin exam: Present: warm, dry, intact, normal color <Aroldo Dominguez - Last Filed: 06/11/20 19:42> Course <Aroldo Dominguez - Last Filed: 06/11/20 19:42> Vital Signs 06/11/20 06/11/20 06/11/20 17:20 18:21 20:30 Temperature 98.0 F 99.7 F H Pulse Rate 70 78 Pulse Rate [ Bilateral Radial] Respiratory 20 18 16 Rate Blood Pressure 132/79 137/77 Blood Pressure [Right Arm] O2 Sat by Pulse 99 98 Oximetry 06/11/20 21:25 Temperature 97.4 F L Pulse Rate Pulse Rate [ 66 Bilateral Radial] Respiratory 18 Rate Blood Pressure Blood Pressure 145/75 [Right Arm] O2 Sat by Pulse 98 Oximetry - Reevaluation(s) Reevaluation #1: 06/11/20 19:42 Medical records reviewed (Aroldo Dominguez) Medical Decision Making - Lab Data Result diagrams: 06/11/20 18:20 06/11/20 18:20 <Aroldo Dominguez - Last Filed: 06/11/20 19:42> - Lab Data Result diagrams: 06/13/20 07:05 06/13/20 07:05 <Fátima Farias - Last Filed: 06/13/20 15:20> - Medical Decision Making Patient is a 39-year-old female with history of IBS presenting to the emergency department with a chief complaint of abdominal pain, nausea or vomiting. After patient was discharged home early this morning from the ED, she developed the exact same symptoms. An ultrasound performed during her last visit revealed no signs of gallbladder related problems. On reevaluation, patient does have diffuse upper abdominal pain which she states is typical for her due to the IBS after having vomiting episodes. CBC reveals mild leukocytosis with I suspect is secondary to the vomiting. CMP reveals slight elevation and BUN at 19 which could be due to the fluid loss from the vomiting or diarrhea. Slight elevation in liver enzymes. Patient was given Reglan, Benadryl, Protonix and IV fluids. On reevaluation patient reports improvement in symptoms although there is still slight nausea. She does report feeling hungry for the first time in a few days. Patient was given Zofran. By mouth challenge pending. UA pending. At this time patient care will be signed off to (Aroldo Dominguez) Patient's care was signed out to me. She was given a dose of Zofran. Patient continues to have nausea and dry heaving. He was given a dose of Pepcid. As this is her second ER visit with intractable symptoms after 2 doses of antiemetics I did recommend hospital physician for the patient did agree. Discussed the case with Rakel from [facility] who agreed to admit the patient. Jw marcial was then transferred to the floor in stable condition (Fátima Farias) - Lab Data Lab Results 06/11/20 06/11/20 06/11/20 Range/Units 18:20 18:20 19:58 WBC 11.2 H (3.8-10.6) k/uL RBC 4.42 (3.80-5.40) m/uL Hgb 13.3 D (11.4-16.0) gm/dL Hct 39.5 (34.0-46.0) % MCV 89.5 (80.0-100.0) fL MCH 30.2 (25.0-35.0) pg MCHC 33.7 (31.0-37.0) g/dL RDW 12.9 (11.5-15.5) % Plt Count 175 (150-450) k/uL Neutrophils % 68 % Lymphocytes % 24 % Monocytes % 5 % Eosinophils % 2 % Basophils % 1 % Neutrophils # 7.6 (1.3-7.7) k/uL Lymphocytes # 2.7 (1.0-4.8) k/uL Monocytes # 0.5 (0-1.0) k/uL Eosinophils # 0.2 (0-0.7) k/uL Basophils # 0.1 (0-0.2) k/uL Sodium 137 (137-145) mmol/L Potassium 4.5 (3.5-5.1) mmol/L Chloride 104 (98-107) mmol/L Carbon Dioxide 25 (22-30) mmol/L Anion Gap 8 mmol/L BUN 19 H (7-17) mg/dL Creatinine 0.78 (0.52-1.04) mg/dL Est GFR (CKD-EPI)AfAm >90 (>60 ml/min/1.73 sqM) Est GFR (CKD-EPI)NonAf >90 (>60 ml/min/1.73 sqM) Glucose 96 (74-99) mg/dL Calcium 9.7 (8.4-10.2) mg/dL Total Bilirubin 1.0 (0.2-1.3) mg/dL AST 50 H (14-36) U/L ALT 74 H (4-34) U/L Alkaline Phosphatase 102 (38-126) U/L Total Protein 7.9 (6.3-8.2) g/dL Albumin 4.7 (3.5-5.0) g/dL Lipase 147 (23-300) U/L Urine Color Yellow Urine Appearance Cloudy H (Clear) Urine pH 7.0 (5.0-8.0) Ur Specific [place] 1.026 (1.001-1.035) Urine Protein Trace H (Negative) Urine Glucose (UA) Negative (Negative) Urine Ketones 3+ H (Negative) Urine Blood Negative (Negative) Urine Nitrite Negative (Negative) Urine Bilirubin Negative (Negative) Urine Urobilinogen <2.0 (<2.0) mg/dL Ur Leukocyte Esterase Negative (Negative) Urine RBC 1 (0-5) /hpf Urine WBC 2 (0-5) /hpf Ur Squamous Epith Cells 4 (0-4) /hpf Urine Mucus Occasional H (None) /hpf Urine Yeast (Budding) Moderate H (None) /hpf - EKG Data EKG Comments: Sinus arrhythmia. ventricular rate 60, P-R 116, QRS 82, QTC 448. (Aroldo Dominguez) Disposition Is patient prescribed a controlled substance at d/c from ED?: No <Aroldo Dominguez - Last Filed: 06/11/20 19:42> Is patient prescribed a controlled substance at d/c from ED?: No Decision to Admit Reason: Admit from EC Decision Date: 06/11/20 Decision Time: 21:04 <Fátima Farias - Last Filed: 06/13/20 15:20> Clinical Impression: Abdominal pain, Nausea vomiting and diarrhea, Gastroenteritis Disposition: ADMITTED IP TO THIS [facility] Condition: Stable
[2020-06-11 19:11] LABS: ALT 74 U/L (4-34); AST 50 U/L (14-36); African American GFR (CKD) >90 (>60 ml/min/1.73 sqM); Albumin 4.7 g/dL (3.5-5.0); Alkaline Phosphatase 102 U/L (38-126); Anion Gap 8 mmol/L; Blood Urea Nitrogen 19 mg/dL (7-17); Calcium 9.7 mg/dL (8.4-10.2); Carbon Dioxide 25 mmol/L (22-30); Chloride 104 mmol/L (98-107); Glucose 96 mg/dL (74-99); Non-African American GFR(CKD) >90 (>60 ml/min/1.73 sqM); Potassium 4.5 mmol/L (3.5-5.1); Sodium 137 mmol/L (137-145); Total Protein 7.9 g/dL (6.3-8.2)
[2020-06-11] MEDS ORDERED: ONDANSETRON 4 MG/2 ML VIAL IVP STA (19:40)
[2020-06-11 20:09] LABS: Appearance,Urine Cloudy (Clear); Bilirubin,Urine Negative (Negative); Blood,Urine Negative (Negative); Budding Yeast,Urine Moderate /hpf; Color,Urine Yellow; Glucose,Urine (UA) Negative (Negative); Ketones,Urine 3+ (Negative); Leukocyte Esterase,Urine Negative (Negative); Mucus,Urine Occasional /hpf; Nitrite,Urine Negative (Negative); Protein,Urine Trace (Negative); RBC,Urine 1 /hpf (0-5); Specific Gravity,Urine 1.026 (1.001-1.035); Squamous Epithelial Cell,Urine 4 /hpf (0-4); Urobilinogen,Urine <2.0 mg/dL (<2.0); WBC,Urine 2 /hpf (0-5)
[2020-06-11] MEDS ORDERED: FAMOTIDINE 20 MG/2 ML VIAL IV STA (20:32)
[2020-06-11] MEDS ORDERED: NALOXONE 0.4 MG/ML 1 ML VIAL IV PRN (21:04)
[2020-06-11] MEDS: PANTOPRAZOLE 40 MG/10 ML VIAL IV SCH (21:29)
[2020-06-11] MEDS: SODIUM CHLORIDE 0.9% 1,000 ML IV SCH (21:29)
[2020-06-11] MEDS: MORPHINE SULFATE 4 MG/ML SYRINGE IVP PRN (23:20)
[2020-06-12] MEDS: MORPHINE SULFATE 4 MG/ML SYRINGE IVP PRN ×4 (03:14→20:04)
[2020-06-12] MEDS: ONDANSETRON 4 MG/2 ML VIAL IVP PRN ×2 (03:14→10:46)
[2020-06-12 07:41] LABS: Basophils # (A) 0.1 k/uL (0-0.2); Basophils % (A) 0 %; Eosinophils # (A) 0.1 k/uL (0-0.7); Eosinophils % (A) 1 %; HCT 37.6 % (34.0-46.0); HGB 12.6 gm/dL (11.4-16.0); Lymphocytes # (A) 4.1 k/uL (1.0-4.8); Lymphocytes % (A) 33 %; MCH 30.1 pg (25.0-35.0); MCHC 33.4 g/dL (31.0-37.0); MCV 89.9 fL (80.0-100.0); Mean Platelet Volume 7.3; Monocytes # (A) 0.5 k/uL (0-1.0); Monocytes % (A) 4 %; Neutrophils # (A) 7.4 k/uL (1.3-7.7); Neutrophils % (A) 60 %; Platelet Count 258 k/uL (150-450); RBC 4.18 m/uL (3.80-5.40); WBC 12.4 k/uL (3.8-10.6)
[2020-06-12 08:01] LABS: African American GFR (CKD) >90 (>60 ml/min/1.73 sqM); Anion Gap 8 mmol/L; Blood Urea Nitrogen 13 mg/dL (7-17); Carbon Dioxide 23 mmol/L (22-30); Chloride 105 mmol/L (98-107); Glucose 89 mg/dL (74-99); Non-African American GFR(CKD) >90 (>60 ml/min/1.73 sqM); Potassium 4.2 mmol/L (3.5-5.1); Sodium 136 mmol/L (137-145)
[2020-06-12] MEDS: PANTOPRAZOLE 40 MG/10 ML VIAL IV SCH ×2 (08:09→22:27)
[2020-06-12] MEDS: SODIUM CHLORIDE 0.9% 1,000 ML IV SCH ×2 (08:09→16:01)
--- NOTE | 2020-06-12 12:29 | CONS ---
CONSULTATION DATE OF DICTATION: June 12, 2020. REASON FOR CONSULTATION: Nausea, vomiting and severe epigastric pain. HISTORY OF PRESENT ILLNESS: The patient is a 45-year-old pleasant white female admitted to hospital. She presented to the emergency room with acute onset of severe epigastric pain associated with nausea, vomiting that started about 3 days ago. She ate at [facility] and following that, she started developing these symptoms. She has been having similar symptoms on and off for the last one year duration with multiple hospitalizations and ER visits. She underwent an EGD colonoscopy by Dr. Rousseau on February 17, 2020 which revealed mild gastritis and mild ileitis of unknown etiology. Biopsies done from the terminal ileum however revealed benign mucosa. She was seen by him in the office and was started on Protonix and Bentyl and she was doing reasonably well. However, for the last 3 days, had several episodes of nausea vomiting at least 7 or 8 times daily with severe epigastric pain. She came to the ER and had labs done. Amylase, lipase normal. CBC and CMP are within normal limits. PAST MEDICAL HISTORY: Significant for IBS, gastroesophageal reflux disease, hypothyroidism, fibromyalgia. PAST SURGICAL HISTORY: Hysterectomy, recent EGD, colonoscopy, D and C. MEDICATIONS: At home, Protonix, Bentyl, vitamin D2, Claritin, [place]. ALLERGIES: DARVOCET. SOCIAL HISTORY: Former smoker. No alcohol use. Uses marijuana. FAMILY HISTORY: Mother unremarkable. Father congestive heart failure. REVIEW OF SYSTEMS: CARDIOPULMONARY: No chest pain or shortness of breath. no dysuria or hematuria. MUSCULOSKELETAL: Does have fibromyalgia. ENT: Vision unremarkable. CONSTITUTIONAL: No recent weight loss. No fever, chills, night sweats. GI: As mentioned above. HEMATOLOGY unremarkable. PSYCHIATRIC unremarkable. ENT/VISION: Unremarkable. CONSTITUTIONAL: No recent weight loss. PHYSICAL EXAMINATION: Blood pressure is 101/66, pulse rate 65, temperature 98.6. HEENT examination unremarkable. Conjunctivae pink. Sclerae anicteric. Oral cavity no lesions. NECK: No JVD or lymph node enlargement. CHEST was clear to auscultation. HEART: Regular rate and rhythm. ABDOMEN was soft. There was very minimal tenderness in the epigastric area. Rest of the abdomen was benign. Bowel sounds are positive. No organomegaly. EXTREMITIES: No pedal edema. SKIN no rashes. NEUROLOGIC: Alert and oriented x3. No focal deficits. LABS: From yesterday WBC 11.2, hemoglobin 13, platelets normal. Basic metabolic panel is all within normal limits. Lipase is 147. AST and ALT are minimally elevated at 50 and 74 respectively. T-bilirubin and alkaline phosphatase is normal. Urinalysis showed 3+ ketones. IMPRESSION: 1. This is a lady with history of gastroesophageal reflux disease and irritable bowel syndrome, presented to the hospital with acute onset of severe epigastric pain associated with nausea vomiting for the last 3 days duration. She has been having intermittent symptoms on and off for the last one year with multiple hospitalizations. She was investigated by Dr. Rousseau in January of this year with an EGD and colonoscopy that showed mild gastritis and small internal hemorrhoids. Biopsies were all negative. Since has been on Protonix 40 mg daily as well as Bentyl 10 mg 4 times daily and now developed severe epigastric pain associated with nausea and vomiting, which appears to be a flare up. Cannot rule out concomitant viral gastroenteritis. 2. History of fibromyalgia. 3. History of gastroesophageal reflux disease. RECOMMENDATIONS: 1. Start on clear liquid diet. 2. Continue with IV Protonix 40 mg daily. 3. Continue antiemetics as needed. 4. Start on clear liquid diet and advance as tolerated. 5. We will follow with you closely. Thank you for this consultation. MMODL / IJN: [id number] /
--- NOTE | 2020-06-12 12:49 | P.HPIM ---
History of Present Illness This is a pleasant 39 years old female with past medical history of fibromyalgia and hypothyroidism, history of hysterectomy. Bulging disc and neuropathy of the legs, irritable bowel syndrome. Presents with nausea vomiting and abdominal pain. Patient presents with persistent nausea vomiting about 15 times per day for 3 days associated with. Umbilical/epigastric abdominal pain, nonradiating, with 8/10, now related to 5/10. Patient also had diarrhea 3 days ago but since then she didn't have any bowel movement. Patient is unable to eat and drink and she has low appetite. However patient today feels little better with diarrhea stopped, no more vomiting today and her abdominal pain looks better. Today she already started her first liquid diet Vital signs stable and patient is afebrile. However on admission she has low grade temperature of 99.7. Labs including CBC, BMP are unremarkable, liver enzymes are slightly elevated with AST of 50 ,ALT and 74. Urine analysis is no suspicious of infection. EKG showing normal sinus rhythm with sinus arrhythmia at 60 bpm with no significant ST-T changes. Dr. Allison already evaluated the patient. It looks like patient underwent EGD and colonoscopy earlier this year on [place] showing mild gastritis and small internal hemorrhoids and biopsy were all negative. Review of Systems CONSTITUTIONAL: No fever, no malaise, no fatigue. HEENT: No recent visual problems or hearing problems. Denied any sore throat. CARDIOVASCULAR: No orthopnea, PND, no palpitations, no syncope. PULMONARY: No shortness of breath, no cough, no hemoptysis. -GASTROINTESTINAL: As above NEUROLOGICAL: No headaches, no weakness, no numbness. HEMATOLOGICAL: Denies any bleeding or petechiae. GENITOURINARY: Denies any burning micturition, frequency, or urgency. MUSCULOSKELETAL/RHEUMATOLOGICAL: Denies any joint pain, swelling, or any muscle pain. ENDOCRINE: Denies any polyuria or polydipsia. Past Medical History Past Medical History: Fibromyalgia, Thyroid Disorder Additional Past Medical History / Comment(s): DDD , BULDGING DISCS, NEUROPATHY LEGS.,THYROID NODULES, HX ANEMIA, ENVIRONMENTAL ALLERGIES, CONSTIPATION & DIARRHEA, STATES VOMITING AND STOMACH PAIN FOR SEVERAL MONTHS.IBS, chronic gaste ritis History of Any Multi-Drug Resistant Organisms: None Reported Past Surgical History: Hysterectomy, Orthopedic Surgery Additional Past Surgical History / Comment(s): rt wrist/forearm ,D&C, MASS ON VOCAL CORD SURGERY, AND BX. Past Anesthesia/Blood Transfusion Reactions: No Reported Reaction Additional Past Anesthesia/Blood Transfusion Reaction / Comment(s): CONSTIPATION POST-OP Past Psychological History: Anxiety, Depression Smoking Status: Former smoker, Vaper Past Alcohol Use History: None Reported, Occasional Additional Past Alcohol Use History / Comment(s): QUIT SMOKING 2018, HX OF 1 PPD, STARTED SMOKING AGE 14 Past Drug Use History: Marijuana - Past Family History Mother Family Medical History: No Reported History Father Additional Family Medical History / Comment(s): cardiovascular swelling Medications and Allergies Home Medications Medication Instructions Recorded Confirmed Type HYDROcodone/APAP 10-325MG [[place] 1 tab PO QID PRN 04/03/17 06/11/20 History 10-325] Loratadine [Claritin] 10 mg PO DAILY 04/03/17 06/11/20 History Ergocalciferol [Vitamin D2] 50,000 unit PO MO 02/13/20 06/11/20 History Dicyclomine [Bentyl] 20 mg PO HS 06/11/20 06/11/20 History Pantoprazole Sodium [Protonix] 40 mg PO BID 06/11/20 06/11/20 History Allergies Allergy/AdvReac Type Severity Reaction Status Date / Time propoxyphene Allergy Rash/Hives Verified 06/11/20 21:29 [From Sissy] Physical Exam Vitals: Vital Signs Temp Pulse Pulse Resp BP BP Pulse Ox 06/12/20 08:53 65 16 06/12/20 08:00 98.6 F 65 16 101/66 98 06/12/20 03:00 99.0 F 71 18 132/73 96 06/11/20 21:40 99.4 F 76 16 129/78 97 06/11/20 21:25 97.4 F L 66 18 145/75 98 06/11/20 20:30 99.7 F H 78 16 137/77 98 06/11/20 18:21 18 06/11/20 17:20 98.0 F 70 20 132/79 99 Intake and Output 06/11/20 06/12/20 06/12/20 22:59 06:59 14:59 Other: Voiding Method Toilet Toilet Toilet # Voids 0 0 Weight 84.368 kg GENERAL: The patient is alert and oriented x3, not in any acute distress. Well developed, well nourished. HEENT: Pupils are round and equally reacting to light. EOMI. No scleral icterus. No conjunctival pallor. Normocephalic, atraumatic. No pharyngeal erythema. No thyromegaly. CARDIOVASCULAR: S1 and S2 present. No murmurs, rubs, or gallops. PULMONARY: Chest is clear to auscultation, no wheezing or crackles. -ABDOMEN: Soft, mild ines-Umbilical abdominal pain, no rebound tenderness or guarding, nondistended, normoactive bowel sounds. No palpable organomegaly. MUSCULOSKELETAL: No joint swelling or deformity. EXTREMITIES: No cyanosis, clubbing, or pedal edema. NEUROLOGICAL: Gross neurological examination did not reveal any focal deficits. SKIN: No rashes. No petechiae Results CBC & Chem 7: 06/12/20 07:02 06/12/20 07:02 Labs: Abnormal Lab Results - Last 24 Hours (Table) 06/11/20 06/11/20 06/11/20 Range/Units 18:20 18:20 19:58 WBC 11.2 H (3.8-10.6) k/uL Sodium (137-145) mmol/L BUN 19 H (7-17) mg/dL AST 50 H (14-36) U/L ALT 74 H (4-34) U/L Urine Appearance Cloudy H (Clear) Urine Protein Trace H (Negative) Urine Ketones 3+ H (Negative) Urine Mucus Occasional H (None) /hpf Urine Yeast (Budding) Moderate H (None) /hpf 06/12/20 06/12/20 Range/Units 07:02 07:02 WBC 12.4 H (3.8-10.6) k/uL Sodium 136 L (137-145) mmol/L BUN (7-17) mg/dL AST (14-36) U/L ALT (4-34) U/L Urine Appearance (Clear) Urine Protein (Negative) Urine Ketones (Negative) Urine Mucus (None) /hpf Urine Yeast (Budding) (None) /hpf Thrombosis Risk Factor Assmnt - Choose All That Apply Any of the Below Risk Factors Present?: No Other Risk Factors: No Thrombosis Risk Factor Assessment Level: Very Low Risk Assessment and Plan Assessment: Acute gastroenteritis, could be viral versus bacterial in view of her fever and leukocytosis. Sepsis secondary to above with low-grade fever and leukocytosis Hypothyroidism Fibromyalgia Irritable bowel syndrome with chronic abdominal pain Plan: This is a pleasant 39 years old female who presents with gastroenteritis. Could be viral or bacterial. We'll check pro-calcitonin. However in view of her fever and leukocytosis we'll start her on oral Flagyl. Check pro-calcitonin. Monitor electrolytes Labs and medication were reviewed.. Continue same treatment. Continue with symptomatic treatment. Resume home medication. Monitor lytes and vitals. DVT and GI prophylaxis. Further recommendations depends on the clinical course of the patient DVT prophylaxis: Subcutaneous heparin GI Prophylaxis: Ppi
[2020-06-12] MEDS: metroNIDAZOLE-NS PMX 500 MG in SALINE 1 100ML.BAG IVPB SCH (16:01)
[2020-06-12] MEDS ORDERED: DICYCLOMINE 20 MG TAB PO SCH (21:00)
[2020-06-12] MEDS ORDERED: diphenhydrAMINE 25 MG CAP PO PRN (22:07)
[2020-06-13] MEDS: MORPHINE SULFATE 4 MG/ML SYRINGE IVP PRN ×2 (00:29→05:11)
[2020-06-13] MEDS: metroNIDAZOLE-NS PMX 500 MG in SALINE 1 100ML.BAG IVPB SCH ×2 (00:30→08:50)
[2020-06-13] MEDS: ONDANSETRON 4 MG/2 ML VIAL IVP PRN (00:30)
[2020-06-13] MEDS: SODIUM CHLORIDE 0.9% 1,000 ML IV SCH ×2 (04:05→13:07)
[2020-06-13 07:19] LABS: Basophils # (A) 0.1 k/uL (0-0.2); Basophils % (A) 1 %; Eosinophils # (A) 0.1 k/uL (0-0.7); Eosinophils % (A) 2 %; HCT 37.7 % (34.0-46.0); HGB 12.9 gm/dL (11.4-16.0); Lymphocytes # (A) 3.1 k/uL (1.0-4.8); Lymphocytes % (A) 38 %; MCHC 34.2 g/dL (31.0-37.0); MCV 90.6 fL (80.0-100.0); Mean Platelet Volume 7.2; Monocytes # (A) 0.4 k/uL (0-1.0); Monocytes % (A) 5 %; Neutrophils # (A) 4.3 k/uL (1.3-7.7); Neutrophils % (A) 53 %; Platelet Count 215 k/uL (150-450); RBC 4.16 m/uL (3.80-5.40); RDW 12.6 % (11.5-15.5); WBC 8.1 k/uL (3.8-10.6)
[2020-06-13 07:38] LABS: African American GFR (CKD) >90 (>60 ml/min/1.73 sqM); Anion Gap 7 mmol/L; Blood Urea Nitrogen 12 mg/dL (7-17); Calcium 8.9 mg/dL (8.4-10.2); Carbon Dioxide 26 mmol/L (22-30); Chloride 105 mmol/L (98-107); Glucose 98 mg/dL (74-99); Non-African American GFR(CKD) 83 (>60 ml/min/1.73 sqM); Potassium 3.5 mmol/L (3.5-5.1); Sodium 138 mmol/L (137-145)
[2020-06-13 08:10] VITALS: BP 126/83; PULSE 70; RESP 18; TEMP 98.9
[2020-06-13] MEDS: PANTOPRAZOLE 40 MG/10 ML VIAL IV SCH (08:50)
--- NOTE | 2020-06-13 11:15 | PN ---
PROGRESS NOTE DATE OF SERVICE: 06/13/2020 Patient is a 39-year-old pleasant white female admitted to the hospital with acute onset of severe epigastric pain associated with nausea and vomiting for the last 4 days duration. She is on Protonix as well as Zofran and her symptoms are much better. Abdominal pain has improved on clear liquid diet, tolerating well. She had an EGD colonoscopy by Dr. Rousseau in January of this year that showed some gastritis. PHYSICAL EXAMINATION: She appears comfortable in no apparent distress. Vital signs stable. Blood pressure 126/83, pulse rate 70, temperature 98.9. HEENT examination unremarkable. Conjunctivae pink. Sclerae anicteric. Oral cavity no lesions. NECK no JVD or lymph node enlargement. CHEST was clear to auscultation. HEART: Regular rate and rhythm. ABDOMEN: Soft. Bowel sounds are positive. Mild tenderness in the epigastric area. Rest of the abdomen was benign. EXTREMITIES: No pedal edema. NEUROLOGIC: Alert and oriented x3. No focal deficits. LABS: From today WBC 8.1, hemoglobin 12.9, platelets normal. Basic metabolic panel is within normal limits. BUN and creatinine are 12, 0.87 respectively. IMPRESSION: 1. Acute onset of severe epigastric pain associated with nausea and vomiting for the last 3 days duration. Presently on Protonix 40 mg daily as well as Zofran and doing much better. The abdominal symptoms are significantly improved. Nausea and vomiting have completely resolved. 2. History of gastroesophageal reflux disease. 3. History of irritable bowel syndrome. RECOMMENDATIONS: 1. Continue with Protonix 40 mg twice daily. 2. Zofran as needed. 3. Advance diet as tolerated. 4. If she is doing well, she can be discharged home today with outpatient followup with Dr. Rousseau in June. Thank you for this consultation. MMODL / IJN: [id number] /
--- NOTE | 2020-06-13 13:28 | P.DS ---
Providers Date of admission: 06/11/20 21:04 Attending physician: Leonardo Villarreal Consults: 06/11/20 21:05 Consult Physician Urgent Consulting Provider: Hill Rousseau Consult Reason/Comments: intractable nausea and vomiting Do you want consulting provider notified?: Yes Primary care physician: Gavin Sawyer Hospital Course: Diagnoses: Acute gastroenteritis, could be viral versus bacterial in view of her fever and leukocytosis. Sepsis secondary to above with low-grade fever and leukocytosis Hypothyroidism Fibromyalgia Irritable bowel syndrome with chronic abdominal pain hospital course: This is a pleasant 39 years old female with past medical history of fibromyalgia and hypothyroidism, history of hysterectomy. Bulging disc and neuropathy of the legs, irritable bowel syndrome. Presents with nausea vomiting and abdominal pain. Found to have acute gastroenteritis, viral versus bacterial was suspected. Patient was treated symptomatically with IV fluids and started on Flagyl. Patient on admission she has low grade temperature 99.7 and patient has been afebrile for more than 24 hours. Her mild leukocytosis of 12.4 K came back to normal at 8.1K today . Rest of CBC and BMP are normal, vitals are normal With treatment patient felt much better, nausea vomiting stopped, no diarrhea and her abdominal pain was improving significantly down to 6/10 and then to 4/10 today, patient tolerated regular diet well After I saw the patient today she has to nurse to call me and asked if she can leave today rather than tomorrow because she feels really good, i came to see the pt she was doing well and she was so eager to leave today Dr. Allison from GI team also evaluated the patient after her for discharge today Patient will be discharged on short course of oral antibiotics with a recommendation for outpatient follow-up Problems and management plan were discussed with the patient and he verbalized understanding and acceptance Patient was found stable and can be discharged home however he needs follow-up as an outpatient. Patient was instructed to follow up with PCP within one week and patient agrees. Patient also was instructed to follow up with Dr. 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 in 2 weeks, she told me she already has an appointment on 07/02 that she intends to follow up with Gen: patient is a AAOx3, no distress CVS: S1-S2, RRR, no murmur Lungs: B/L CTA, no wheezing Abdomen: soft, no distention, no tenderness, positive bowel sounds Extremity: no leg edema or induration Time spent more than 35 minutes Patient Condition at Discharge: Stable Plan - Discharge Summary Discharge Rx Participant: Yes New Discharge Prescriptions: New metroNIDAZOLE [Flagyl] 500 mg PO Q8HR 5 Days #15 tab Ondansetron HCl [Zofran] 4 mg PO Q8H PRN 5 Days #15 tab PRN Reason: Nausea And Vomiting Continue Loratadine [Claritin] 10 mg PO DAILY HYDROcodone/APAP 10-325MG [[place] 10-325] 1 tab PO QID PRN PRN Reason: Pain Ergocalciferol [Vitamin D2 (DRISDOL)] 50,000 unit PO MO Pantoprazole Sodium [Protonix] 40 mg PO BID Dicyclomine [Bentyl] 20 mg PO HS Discharge Medication List HYDROcodone/APAP 10-325MG [[place] 10-325] 1 tab PO QID PRN 04/03/17 [History] Loratadine [Claritin] 10 mg PO DAILY 04/03/17 [History] Ergocalciferol [Vitamin D2 (DRISDOL)] 50,000 unit PO MO 02/13/20 [History] Dicyclomine [Bentyl] 20 mg PO HS 06/11/20 [History] Pantoprazole Sodium [Protonix] 40 mg PO BID 06/11/20 [History] Ondansetron HCl [Zofran] 4 mg PO Q8H PRN 5 Days #15 tab 06/13/20 [Rx] metroNIDAZOLE [Flagyl] 500 mg PO Q8HR 5 Days #15 tab 06/13/20 [Rx] Follow up Appointment(s)/Referral(s): Digna Alonso MD [Primary Care Provider] - 1-2 days Hill Rousseau MD [STAFF PHYSICIAN] - 2 Weeks (Follow-up with her appointment on 07/02 as you informed the medical team) Activity/Diet/Wound Care/Special Instructions: Follow with her primary care physician. Continue taking Zofran on an as-needed basis. Return to the emergency department if symptoms worsen. Diet as tolerated Activity is limited to till you see your doctor Discharge Disposition: HOME SELF-CARE
== END 2020-06-13 14:06 | disposition home or self-care (01) ==
LOC: EC 17:13 → 1SOBS 21:04
PROVIDERS: ADMIT Hospitalist; ATTEND Hospitalist
DX: K52.9 Noninfective gastroenteritis and colitis, unspecified (principal); A41.9 Sepsis, unspecified organism; K58.0 Irritable bowel syndrome with diarrhea; K58.1 Irritable bowel syndrome with constipation; E03.9 Hypothyroidism, unspecified; M79.7 Fibromyalgia; G89.29 Other chronic pain; R10.9 Unspecified abdominal pain; G62.9 Polyneuropathy, unspecified; F41.9 Anxiety disorder, unspecified; F32.9 Major depressive disorder, single episode, unspecified; Z87.891 Personal history of nicotine dependence; Z90.710 Acquired absence of both cervix and uterus; Z82.49 Family history of ischemic heart disease and other diseases of the circulatory system; Z79.891 Long term (current) use of opiate analgesic; Z79.899 Other long term (current) drug therapy; Z88.5 Allergy status to narcotic agent
CPT/HCPCS: 96361 ×2; 96365; 96366; 96375 ×2; 96376 ×3; 99285; 36415; 93005; 80053; 80048 ×2; 83690; 85025 ×3; 81001; 84145 ×2; G0378 ×3; J2270 ×3; J1200; J0500; J2765; J2405 ×3; C9113 ×3

== ENCOUNTER → 2020-07-07 | Outpatient (CLI) | payer MEDICARE, OTHER ==
--- NOTE | 2020-07-07 09:32 | US ---
EXAMINATION TYPE: US thyroid st tissue head/neck DATE OF EXAM: 07/07/2020 COMPARISON: 07/16/2018 CLINICAL HISTORY: 39-year-old female E04.1 Thyroid nodule; left neck node. IBS, prior left neck lymph nodes per patient history TECHNIQUE: Multiple sonographic images of the thyroid gland are obtained. FINDINGS: GLAND SIZE: Right Lobe: 4.3 x 1.6 x 1.5 cm Overall Parenchyma: heterogenous Left Lobe: 4.7 x 1.6 x 1.1 cm Overall Parenchyma: heterogeneous Isthmus Thickness: 0.2 cm NODULES RIGHT: # of nodules measured on right: 1 of multiple small cystic nodules 1. 0.3 X 0.2 x 0.1 cm colloid cyst at the lower pole with well-defined margins. This nodule is wid er than tall and shows no intranodular vascularity. Prior size: 0.2 x 0.2 x 0.1 cm prior cystic nodule LEFT: # of nodules measured on left: 1 1. 0.3 X 0.2 x 0.1 cm tiny cyst at the mid medial pole with well-defined margins. This nodule is w ider than tall and shows no intranodular vascularity. ISTHMUS: # of nodules measured in the isthmus: 0 Bilateral neck scanned: superior to right thyroid lobe, there is a lymph node measuring 1.4 x 0.9 x 0 .5cm; superior to left thyroid multiple lymph nodes are seen, largest measuring up to 1.9 x 1.8 x 0.6 cm. IMPRESSION: 1. Small colloid cysts in the thyroid gland measuring up to 3 mm. No suspicious solid nodule. 2. Above the left lobe of the thyroid gland, lymph nodes are present. The largest is mildly enlarged measuring 1.8 cm short axis, probably reactive/post inflammatory. An 8-12 week follow-up ultrasound i s recommended to reassess. Patient should also be followed clinically to ensure that there is no enla rging lymphadenopathy.
== END | disposition home or self-care (01) ==
LOC: RADUSWWP 08:23
PROVIDERS: ATTEND Otolaryngology
DX: E04.1 Nontoxic single thyroid nodule (principal)
CPT/HCPCS: 76536

== ENCOUNTER 2020-07-21 08:38 | Emergency (ER) | payer MEDICARE, OTHER ==
[2020-07-21] MEDS ORDERED: METOCLOPRAMIDE 5 MG/ML 2 ML VIAL IVP STA (09:02)
[2020-07-21] MEDS ORDERED: SODIUM CHLORIDE 0.9% 1,000 ML IV STA ×2 (09:02)
[2020-07-21] MEDS ORDERED: diphenhydrAMINE 50 MG/ML 1 ML VIAL IVP STA (09:02)
--- NOTE | 2020-07-21 09:04 | ED ---
General Adult HPI - General Source: patient, RN notes reviewed, old records reviewed Mode of arrival: wheelchair Limitations: no limitations <Elaine Atkins - Last Filed: 07/21/20 12:22> <Fátima Farias - Last Filed: 07/28/20 23:57> - General Chief complaint: Nausea/Vomiting/Diarrhea Stated complaint: vomiting/diarrhea Time Seen by Provider: 07/21/20 08:49 - History of Present Illness Initial comments: Patient is a 39-year-old female presents emergency room sooner nausea vomiting diarrhea for the past 3 days. Patient believes that the flare of IBS. Patient states that she had chills but no recorded fevers at home. She denies any chest pain shortness of breath. Complete her diffuse abdominal pain. Denies any other complaints. (Elaine Atkins) - Related Data Home Medications Medication Instructions Recorded Confirmed HYDROcodone/APAP 10-325MG [[place] 1 tab PO QID PRN 04/03/17 07/22/20 10-325] Loratadine [Claritin] 10 mg PO DAILY 04/03/17 07/22/20 Ergocalciferol [Vitamin D2 50,000 unit PO MO 02/13/20 07/22/20 (DRISDOL)] Dicyclomine [Bentyl] 20 mg PO HS 06/11/20 07/22/20 Pantoprazole Sodium [Protonix] 40 mg PO BID 06/11/20 07/22/20 FLUoxetine HCL [PROzac] 10 mg PO DAILY 07/21/20 07/22/20 Previous Rx's Medication Instructions Recorded Ondansetron HCl [Zofran] 4 mg PO Q8H PRN 5 Days #15 tab 06/13/20 Metoclopramide [Reglan] 10 mg PO ACHS #12 tab 07/21/20 Allergies Allergy/AdvReac Type Severity Reaction Status Date / Time propoxyphene Allergy Rash/Hives Verified 07/22/20 22:53 [From Sissy] Review of Systems ROS Other: All systems not noted in ROS Statement are negative. <Elaine Atkins - Last Filed: 07/21/20 12:22> ROS Other: All systems not noted in ROS Statement are negative. <Fátima Farias - Last Filed: 07/28/20 23:57> ROS Statement: Those systems with pertinent positive or pertinent negative responses have been documented in the HPI. Past Medical History Past Medical History: Fibromyalgia, Thyroid Disorder Additional Past Medical History / Comment(s): DDD , BULDGING DISCS, NEUROPATHY LEGS.,THYROID NODULES, HX ANEMIA, ENVIRONMENTAL ALLERGIES, CONSTIPATION & DIARRHEA, STATES VOMITING AND STOMACH PAIN FOR SEVERAL MONTHS.IBS, chronic gasteritis History of Any Multi-Drug Resistant Organisms: None Reported Past Surgical History: Hysterectomy, Orthopedic Surgery Additional Past Surgical History / Comment(s): rt wrist/forearm ,D&C, MASS ON VOCAL CORD SURGERY, AND BX. Past Anesthesia/Blood Transfusion Reactions: No Reported Reaction Additional Past Anesthesia/Blood Transfusion Reaction / Comment(s): CONSTIPATION POST-OP Past Psychological History: Anxiety, Depression Smoking Status: Former smoker, Vaper Past Alcohol Use History: None Reported, Occasional Past Drug Use History: Marijuana - Past Family History Mother Family Medical History: No Reported History Father Additional Family Medical History / Comment(s): cardiovascular swelling <Elaine Atkins - Last Filed: 07/21/20 12:22> General Exam Limitations: no limitations General appearance: alert, in no apparent distress Head exam: Present: atraumatic, normocephalic, normal inspection Eye exam: Present: normal appearance, PERRL, EOMI. Absent: scleral icterus, conjunctival injection, periorbital swelling ENT exam: Present: normal exam, mucous membranes moist Neck exam: Present: normal inspection. Absent: tenderness, meningismus, lymphadenopathy Respiratory exam: Present: normal lung sounds bilaterally. Absent: respiratory distress, wheezes, rales, rhonchi, stridor Cardiovascular Exam: Present: regular rate, normal rhythm, normal heart sounds. Absent: systolic murmur, diastolic murmur, rubs, gallop, clicks GI/Abdominal exam: Present: soft, normal bowel sounds. Absent: distended, tenderness, guarding, rebound, rigid Extremities exam: Present: normal inspection, full ROM, normal capillary refill. Absent: tenderness, pedal edema, joint swelling, calf tenderness Back exam: Present: normal inspection <Elaine Atkins - Last Filed: 07/21/20 12:22> - General Exam Comments Initial Comments: 39-year-old female. No distress. (Elaine Atkins) Course Vital Signs 07/21/20 07/21/20 08:42 12:51 Temperature 97.9 F 98.9 F Pulse Rate 86 73 Respiratory 20 18 Rate Blood Pressure 123/87 156/91 O2 Sat by Pulse 98 98 Oximetry Medical Decision Making - Lab Data Result diagrams: 07/21/20 09:15 07/21/20 09:15 - Radiology Data Radiology results: report reviewed <Elaine Atkins - Last Filed: 07/21/20 12:22> - Lab Data Result diagrams: 07/21/20 09:15 07/21/20 09:15 <Fátima Farias - Last Filed: 07/28/20 23:57> - Medical Decision Making 39-year-old female presents emergency department today for chief complaint of nausea vomiting abdominal discomfort. Patient reports that she's had some diarrhea. Please of IBS. She went diffuse abdominal tenderness. Labwork was reviewed and unremarkable besides evidence of leukocytosis. She was reevaluated and continued abdominal tenderness and had computed tomography scan. Shows no signs of appendicitis or other acute inflammation or infection. Patient will be started on Reglan for nausea. Discussed PCP follow-up (Elaine Atkins) I was available for consultation in the emergency department. The history and physical exam were done by the midlevel provider. I was consulted for this patients care. I reviewed the case with the midlevel provider and based on their presentation of the patient, I agree with the assessment, medical decision making and plan of care as documented. Chart was dictated using [employer] dictation software. Attempts were made to correct any dictation errors however some typographical errors may persist. Patient seen during the Covid-19 pandemic. (Fátima Farias) - Lab Data Lab Results 07/21/20 07/21/20 07/21/20 Range/Units 09:15 09:15 09:15 WBC 16.0 H (3.8-10.6) k/uL RBC 4.95 (3.80-5.40) m/uL Hgb 14.7 (11.4-16.0) gm/dL Hct 43.6 (34.0-46.0) % MCV 88.0 (80.0-100.0) fL MCH 29.6 (25.0-35.0) pg MCHC 33.7 (31.0-37.0) g/dL RDW 13.5 (11.5-15.5) % Plt Count 283 (150-450) k/uL MPV 8.6 Neutrophils % 83 % Lymphocytes % 12 % Monocytes % 4 % Eosinophils % 0 % Basophils % 0 % Neutrophils # 13.2 H (1.3-7.7) k/uL Lymphocytes # 2.0 (1.0-4.8) k/uL Monocytes # 0.7 (0-1.0) k/uL Eosinophils # 0.0 (0-0.7) k/uL Basophils # 0.0 (0-0.2) k/uL Sodium 142 (137-145) mmol/L Potassium 4.0 (3.5-5.1) mmol/L Chloride 106 (98-107) mmol/L Carbon Dioxide 23 (22-30) mmol/L Anion Gap 13 mmol/L BUN 14 (7-17) mg/dL Creatinine 0.66 (0.52-1.04) mg/dL Est GFR (CKD-EPI)AfAm >90 (>60 ml/min/1.73 sqM) Est GFR (CKD-EPI)NonAf >90 (>60 ml/min/1.73 sqM) Glucose 118 H (74-99) mg/dL Calcium 10.6 H (8.4-10.2) mg/dL Magnesium 2.1 (1.6-2.3) mg/dL Total Bilirubin 0.5 (0.2-1.3) mg/dL AST 24 (14-36) U/L ALT 33 (4-34) U/L Alkaline Phosphatase 99 (38-126) U/L Total Protein 8.6 H (6.3-8.2) g/dL Albumin 5.2 H (3.5-5.0) g/dL Amylase 45 (30-110) U/L Lipase 39 (23-300) U/L Urine Color Yellow Urine Appearance Cloudy H (Clear) Urine pH 6.0 (5.0-8.0) Ur Specific [place] 1.032 (1.001-1.035) Urine Protein 2+ H (Negative) Urine Glucose (UA) Negative (Negative) Urine Ketones 2+ H (Negative) Urine Blood Negative (Negative) Urine Nitrite Negative (Negative) Urine Bilirubin Negative (Negative) Urine Urobilinogen <2.0 (<2.0) mg/dL Ur Leukocyte Esterase Small H (Negative) Urine RBC 2 (0-5) /hpf Urine WBC 10 H (0-5) /hpf Ur Squamous Epith Cells 7 H (0-4) /hpf Amorphous Sediment Few H (None) /hpf Urine Bacteria Rare H (None) /hpf Urine Mucus Many H (None) /hpf - Radiology Data No CT evidence for acute appendicitis. No significant new or acute findings seen for patient's clinical symptoms. (Elaine Atkins) Disposition Is patient prescribed a controlled substance at d/c from ED?: No Time of Disposition: 12:23 <Elaine Atkins - Last Filed: 07/21/20 12:22> <Fátima Farias - Last Filed: 07/28/20 23:57> Clinical Impression: IBS (irritable bowel syndrome), Nausea vomiting and diarrhea Disposition: HOME SELF-CARE Condition: Good Instructions (If sedation given, give patient instructions): Acute Nausea and Vomiting (ED) Additional Instructions: Please use medication as discussed. Please follow up with family doctor if symptoms have not improved over the next two days. Please return to the emergency room if your symptoms increase or worsen or for any other concerns. Prescriptions: Metoclopramide [Reglan] 10 mg PO ACHS #12 tab Referrals: Digna Alonso MD [Primary Care Provider] - 1-2 days
[2020-07-21] MEDS ORDERED: MORPHINE SULFATE 4 MG/ML SYRINGE IVP STA (09:58)
[2020-07-21 10:06] LABS: Amorphous Sediment,Urine Few /hpf; Appearance,Urine Cloudy (Clear); Bacteria,Urine Rare /hpf; Bilirubin,Urine Negative (Negative); Blood,Urine Negative (Negative); Color,Urine Yellow; Glucose,Urine (UA) Negative (Negative); Ketones,Urine 2+ (Negative); Leukocyte Esterase,Urine Small (Negative); Mucus,Urine Many /hpf; Nitrite,Urine Negative (Negative); Protein,Urine 2+ (Negative); RBC,Urine 2 /hpf (0-5); Specific Gravity,Urine 1.032 (1.001-1.035); Squamous Epithelial Cell,Urine 7 /hpf (0-4); Urobilinogen,Urine <2.0 mg/dL (<2.0); WBC,Urine 10 /hpf (0-5)
[2020-07-21 10:16] LABS: ALT 33 U/L (4-34); AST 24 U/L (14-36); African American GFR (CKD) >90 (>60 ml/min/1.73 sqM); Albumin 5.2 g/dL (3.5-5.0); Alkaline Phosphatase 99 U/L (38-126); Amylase 45 U/L (30-110); Anion Gap 13 mmol/L; Blood Urea Nitrogen 14 mg/dL (7-17); Calcium 10.6 mg/dL (8.4-10.2); Carbon Dioxide 23 mmol/L (22-30); Chloride 106 mmol/L (98-107); Glucose 118 mg/dL (74-99); Lipase 39 U/L (23-300); Magnesium 2.1 mg/dL (1.6-2.3); Non-African American GFR(CKD) >90 (>60 ml/min/1.73 sqM); Sodium 142 mmol/L (137-145); Total Bilirubin 0.5 mg/dL (0.2-1.3); Total Protein 8.6 g/dL (6.3-8.2)
[2020-07-21] MEDS ORDERED: PANTOPRAZOLE 40 MG/10 ML VIAL IVP STA (10:19)
[2020-07-21 10:36] LABS: Basophils % (A) 0 %; Eosinophils % (A) 0 %; HCT 43.6 % (34.0-46.0); HGB 14.7 gm/dL (11.4-16.0); Lymphocytes % (A) 12 %; MCH 29.6 pg (25.0-35.0); MCHC 33.7 g/dL (31.0-37.0); Mean Platelet Volume 8.6; Monocytes # (A) 0.7 k/uL (0-1.0); Monocytes % (A) 4 %; Neutrophils # (A) 13.2 k/uL (1.3-7.7); Neutrophils % (A) 83 %; Platelet Count 283 k/uL (150-450); RBC 4.95 m/uL (3.80-5.40); RDW 13.5 % (11.5-15.5)
--- NOTE | 2020-07-21 11:52 | CT ---
EXAMINATION TYPE: CT abdomen pelvis w con DATE OF EXAM: 07/21/2020 HISTORY: Right lower quadrant pain, nausea, vomiting and diarrhea. CT DLP: 986.8mGycm Automated Exposure Control for Dose Reduction was Utilized. CONTRAST: CT scan of the abdomen and pelvis is performed without oral but with IV Contrast, patient injected wi th 100 mL of Isovue 300. COMPARISON: CT abdomen and pelvis August 31, 2019 FINDINGS: LUNG BASES: No significant abnormality is appreciated. LIVER/GB: No significant abnormality is appreciated. PANCREAS: No significant abnormality is seen. SPLEEN: No significant abnormality is seen. ADRENALS: No significant abnormality is seen. KIDNEYS: Symmetric cortical medullary uptake and excretion without concerning renal mass or hydroneph rosis seen bilaterally. BOWEL: Suboptimal evaluation of bowel without enteric contrast. No suspicious small or large bowel di latation. Normal-appearing appendix extending medially from base of cecum in the right upper pelvis. UTERUS/ADNEXA: Uterus surgically absent or markedly atrophic. LYMPH NODES: No greater than 1cm abdominal or pelvic lymph nodes are appreciated. OSSEOUS STRUCTURES: Mild facet arthropathy lower lumbar spine. OTHER: Small fat-containing umbilical hernia redemonstrated. IMPRESSION: No CT evidence for acute appendicitis. No significant new or acute finding is seen to acc ount for patient's clinical symptoms.
[2020-07-21 12:52] VITALS: BP 156/91; PULSE 73; RESP 18; TEMP 98.9
== END 2020-07-21 12:52 | disposition home or self-care (01) ==
LOC: EC 08:38
DX: K58.0 Irritable bowel syndrome with diarrhea (principal); R11.2 Nausea with vomiting, unspecified; F41.9 Anxiety disorder, unspecified; F32.9 Major depressive disorder, single episode, unspecified; Z79.899 Other long term (current) drug therapy; Z88.8 Allergy status to other drugs, medicaments and biological substances; Z87.891 Personal history of nicotine dependence
CPT/HCPCS: 99284 ×2; 96374 ×2; 96375 ×4; 96361 ×4; 36415; 80053; 82150; 83690; 83735; 85025; 81001; 74177; J2270; J1200; J2765; C9113; Q9967

== ENCOUNTER 2020-07-22 05:17 | Emergency (ER) | payer MEDICARE, OTHER ==
[2020-07-22] MEDS ORDERED: METOCLOPRAMIDE 5 MG/ML 2 ML VIAL IVP STA (05:45)
[2020-07-22] MEDS ORDERED: SODIUM CHLORIDE 0.9% 1,000 ML IV STA (05:45)
[2020-07-22] MEDS ORDERED: MORPHINE SULFATE 4 MG/ML SYRINGE IV STA (05:45)
[2020-07-22 06:25] LABS: Basophils # (A) 0.1 k/uL (0-0.2); Basophils % (A) 0 %; Eosinophils # (A) 0.1 k/uL (0-0.7); Eosinophils % (A) 1 %; HCT 44.4 % (34.0-46.0); Lymphocytes # (A) 2.5 k/uL (1.0-4.8); Lymphocytes % (A) 19 %; MCH 29.5 pg (25.0-35.0); MCHC 33.7 g/dL (31.0-37.0); MCV 87.6 fL (80.0-100.0); Mean Platelet Volume 8.1; Monocytes # (A) 0.4 k/uL (0-1.0); Monocytes % (A) 3 %; Neutrophils # (A) 10.2 k/uL (1.3-7.7); Neutrophils % (A) 76 %; Platelet Count 319 k/uL (150-450); RBC 5.06 m/uL (3.80-5.40); RDW 13.5 % (11.5-15.5); WBC 13.5 k/uL (3.8-10.6)
[2020-07-22 06:29] LABS: Appearance,Urine Cloudy (Clear); Bacteria,Urine Rare /hpf; Bilirubin,Urine 1+ (Negative); Blood,Urine Trace (Negative); Color,Urine Yellow; Glucose,Urine (UA) Trace (Negative); Hyaline Casts,Urine 1 /lpf (0-2); Ketones,Urine 3+ (Negative); Leukocyte Esterase,Urine Trace (Negative); Mucus,Urine Many /hpf; Nitrite,Urine Negative (Negative); Protein,Urine 2+ (Negative); RBC,Urine 2 /hpf (0-5); Specific Gravity,Urine 1.035 (1.001-1.035); Squamous Epithelial Cell,Urine 10 /hpf (0-4); WBC,Urine 4 /hpf (0-5)
[2020-07-22] MEDS ORDERED: DICYCLOMINE 10 MG/ML 2 ML AMP IM STA (06:36)
[2020-07-22 06:39] LABS: AST 26 U/L (14-36); African American GFR (CKD) >90 (>60 ml/min/1.73 sqM); Albumin 5.2 g/dL (3.5-5.0); Alkaline Phosphatase 94 U/L (38-126); Amylase 61 U/L (30-110); Anion Gap 12 mmol/L; Blood Urea Nitrogen 11 mg/dL (7-17); Calcium 10.4 mg/dL (8.4-10.2); Carbon Dioxide 24 mmol/L (22-30); Chloride 102 mmol/L (98-107); Glucose 123 mg/dL (74-99); Non-African American GFR(CKD) >90 (>60 ml/min/1.73 sqM); Sodium 138 mmol/L (137-145); Total Bilirubin 0.6 mg/dL (0.2-1.3); Total Protein 8.5 g/dL (6.3-8.2)
[2020-07-22 06:43] LABS: ALT 31 U/L (4-34); Lipase 85 U/L (23-300)
[2020-07-22 07:17] LABS: C Reactive Protein <5.0 mg/L (<10.0)
[2020-07-22] MEDS ORDERED: ONDANSETRON 4 MG/2 ML VIAL IVP STA (07:20)
[2020-07-22] MEDS ORDERED: SODIUM CHLORIDE 0.9% 500 ML 500 ML IV STA (07:20)
--- NOTE | 2020-07-22 08:27 | ED ---
General Adult HPI - General Chief complaint: Nausea/Vomiting/Diarrhea Stated complaint: Vomiting Time Seen by Provider: 07/22/20 05:30 Source: patient Mode of arrival: ambulatory - History of Present Illness Initial comments: Patient was signed out to me by Dr. Gotti. It was reported that the patient is a 39-year-old female past medical history of IBS who presents emergency de partment with reported nausea, vomiting and diarrhea. Patient does have a history of IBS and states that this episode is consistent with her previous episodes of a "IBS flare". She denies any fevers or chills. No cough, shortness of breath or fevers. Denies any black or bloody stools. No changes in her urination. Denies concern for . Patient has been seen in the emergency department for similar complaints in the past. She was given pain medications and antiemetics. Patient was signed out to me pending reevaluation of her symptoms - Related Data Home Medications Medication Instructions Recorded Confirmed HYDROcodone/APAP 10-325MG [[place] 1 tab PO QID PRN 04/03/17 07/21/20 10-325] Loratadine [Claritin] 10 mg PO DAILY 04/03/17 07/21/20 Ergocalciferol [Vitamin D2 50,000 unit PO MO 02/13/20 07/21/20 (DRISDOL)] Dicyclomine [Bentyl] 20 mg PO HS 06/11/20 07/21/20 Pantoprazole Sodium [Protonix] 40 mg PO BID 06/11/20 07/21/20 FLUoxetine HCL [PROzac] 10 mg PO DAILY 07/21/20 07/21/20 Previous Rx's Medication Instructions Recorded Ondansetron HCl [Zofran] 4 mg PO Q8H PRN 5 Days #15 tab 06/13/20 Metoclopramide [Reglan] 10 mg PO ACHS #12 tab 07/21/20 Allergies Allergy/AdvReac Type Severity Reaction Status Date / Time propoxyphene Allergy Rash/Hives Verified 07/21/20 10:32 [From Sissy] Review of Systems ROS Statement: Those systems with pertinent positive or pertinent negative responses have been documented in the HPI. ROS Other: All systems not noted in ROS Statement are negative. Past Medical History Past Medical History: Fibromyalgia, Thyroid Disorder Additional Past Medical History / Comment(s): DDD , BULDGING DISCS, NEUROPATHY LEGS.,THYROID NODULES, HX ANEMIA, ENVIRONMENTAL ALLERGIES, CONSTIPATION & DIARRHEA, STATES VOMITING AND STOMACH PAIN FOR SEVERAL MONTHS.IBS, chronic gasteritis History of Any Multi-Drug Resistant Organisms: None Reported Past Surgical History: Hysterectomy, Orthopedic Surgery Additional Past Surgical History / Comment(s): rt wrist/forearm ,D&C, MASS ON VOCAL CORD SURGERY, AND BX. Past Anesthesia/Blood Transfusion Reactions: No Reported Reaction Additional Past Anesthesia/Blood Transfusion Reaction / Comment(s): CONSTIPATION POST-OP Past Psychological History: Anxiety, Depression Smoking Status: Former smoker, Vaper Past Alcohol Use History: None Reported, Occasional Past Drug Use History: Marijuana - Past Family History Mother Family Medical History: No Reported History Father Additional Family Medical History / Comment(s): cardiovascular swelling General Exam General appearance: alert, in no apparent distress Head exam: Present: atraumatic, normocephalic, normal inspection Eye exam: Present: normal appearance, PERRL, EOMI. Absent: scleral icterus, conjunctival injection, periorbital swelling ENT exam: Present: normal exam, mucous membranes moist Neck exam: Present: normal inspection. Absent: tenderness, meningismus, lymphadenopathy Respiratory exam: Present: normal lung sounds bilaterally. Absent: respiratory distress, wheezes, rales, rhonchi, stridor Cardiovascular Exam: Present: regular rate, normal rhythm, normal heart sounds. Absent: systolic murmur, diastolic murmur, rubs, gallop, clicks GI/Abdominal exam: Present: soft, normal bowel sounds. Absent: distended, tenderness, guarding, rebound, rigid Extremities exam: Present: normal inspection, full ROM, normal capillary refill. Absent: tenderness, pedal edema, joint swelling, calf tenderness Back exam: Present: normal inspection Neurological exam: Present: alert, oriented X3, CN II-XII intact Psychiatric exam: Present: normal affect, normal mood Skin exam: Present: warm, dry, intact, normal color. Absent: rash Course Vital Signs 07/22/20 05:26 Temperature 98.1 F Pulse Rate 88 Respiratory 16 Rate Blood Pressure 116/87 O2 Sat by Pulse 98 Oximetry Medical Decision Making - Medical Decision Making Upon arrival patient is placed into room 5. A thorough history and physical exam was performed. Patient is resting comfortably at this time and has minimal pain. Patient reports feeling comfortable going home at this time. She does have Reglan and Zofran at home at her disposal. She is instructed to use these medications as needed for her nausea. She does have a follow-up appointment with her GI doctor on July 27. She is instructed to follow-up at this appointment. If she has any new or worsening symptoms return to the emergency department. Patient agreed to that and was discharged home in stable condition - Lab Data Result diagrams: 07/22/20 05:53 07/22/20 05:53 Lab Results 07/22/20 07/22/20 07/22/20 Range/Units 05:53 05:53 05:53 WBC 13.5 H (3.8-10.6) k/uL RBC 5.06 (3.80-5.40) m/uL Hgb 15.0 (11.4-16.0) gm/dL Hct 44.4 (34.0-46.0) % MCV 87.6 (80.0-100.0) fL MCH 29.5 (25.0-35.0) pg MCHC 33.7 (31.0-37.0) g/dL RDW 13.5 (11.5-15.5) % Plt Count 319 (150-450) k/uL MPV 8.1 Neutrophils % 76 % Lymphocytes % 19 % Monocytes % 3 % Eosinophils % 1 % Basophils % 0 % Neutrophils # 10.2 H (1.3-7.7) k/uL Lymphocytes # 2.5 (1.0-4.8) k/uL Monocytes # 0.4 (0-1.0) k/uL Eosinophils # 0.1 (0-0.7) k/uL Basophils # 0.1 (0-0.2) k/uL Sodium 138 (137-145) mmol/L Potassium 4.0 (3.5-5.1) mmol/L Chloride 102 (98-107) mmol/L Carbon Dioxide 24 (22-30) mmol/L Anion Gap 12 mmol/L BUN 11 (7-17) mg/dL Creatinine 0.73 (0.52-1.04) mg/dL Est GFR (CKD-EPI)AfAm >90 (>60 ml/min/1.73 sqM) Est GFR (CKD-EPI)NonAf >90 (>60 ml/min/1.73 sqM) Glucose 123 H (74-99) mg/dL Calcium 10.4 H (8.4-10.2) mg/dL Total Bilirubin 0.6 (0.2-1.3) mg/dL AST 26 (14-36) U/L ALT 31 (4-34) U/L Alkaline Phosphatase 94 (38-126) U/L C-Reactive Protein <5.0 (<10.0) mg/L Total Protein 8.5 H (6.3-8.2) g/dL Albumin 5.2 H (3.5-5.0) g/dL Amylase 61 (30-110) U/L Lipase 85 (23-300) U/L Urine Color Yellow Urine Appearance Cloudy H (Clear) Urine pH 6.0 (5.0-8.0) Ur Specific [place] 1.035 (1.001-1.035) Urine Protein 2+ H (Negative) Urine Glucose (UA) Trace H (Negative) Urine Ketones 3+ H (Negative) Urine Blood Trace H (Negative) Urine Nitrite Negative (Negative) Urine Bilirubin 1+ H (Negative) Urine Urobilinogen 2.0 (<2.0) mg/dL Ur Leukocyte Esterase Trace H (Negative) Urine RBC 2 (0-5) /hpf Urine WBC 4 (0-5) /hpf Ur Squamous Epith Cells 10 H (0-4) /hpf Urine Bacteria Rare H (None) /hpf Hyaline Casts 1 (0-2) /lpf Urine Mucus Many H (None) /hpf Disposition Clinical Impression: Abdominal pain, Nausea vomiting and diarrhea, IBS (irritable bowel syndrome) Disposition: HOME SELF-CARE Condition: Stable Instructions (If sedation given, give patient instructions): Acute Nausea and Vomiting (ED) Additional Instructions: Please follow-up with the GI doctor on the first. Return to the emergency room for any new or worsening symptoms Is patient prescribed a controlled substance at d/c from ED?: No Referrals: Digna Alonso MD [Primary Care Provider] - 1-2 days Time of Disposition: 08:26
[2020-07-22 08:36] VITALS: BP 136/89; PULSE 65; RESP 18; TEMP 98.7
== END 2020-07-22 08:48 | disposition home or self-care (01) ==
LOC: EC 05:17
DX: K58.0 Irritable bowel syndrome with diarrhea (principal); F32.9 Major depressive disorder, single episode, unspecified; F41.9 Anxiety disorder, unspecified; Z79.899 Other long term (current) drug therapy; Z88.8 Allergy status to other drugs, medicaments and biological substances; Z87.891 Personal history of nicotine dependence; Z90.710 Acquired absence of both cervix and uterus
CPT/HCPCS: 36415; 80053; 82150; 83690; 85025; 86140; 81001; 99284; 96374; 96375 ×2; 96361 ×3; 96372; J2270; J0500; J2765; J2405

== ENCOUNTER 2020-07-22 22:10 | Observation (INO) | payer MEDICARE, OTHER ==
[2020-07-22] MEDS ORDERED: ONDANSETRON 4 MG/2 ML VIAL IVP STA (22:25)
[2020-07-22] MEDS ORDERED: MAG HYDROX/AL HYDROX/SIMETH 30 ML, HYOSCYAMINE ELIXIR 10 ML, LIDOCAINE VISCOUS 2% 10 ML PO STA ×3 (22:42)
--- NOTE | 2020-07-22 22:51 | ED ---
General Adult HPI - General Chief complaint: Abdominal Pain Stated complaint: Vomiting Time Seen by Provider: 07/22/20 22:25 Source: patient Mode of arrival: ambulatory Limitations: no limitations - History of Present Illness Initial comments: This patient is a 39-year-old woman who presents with recurrence of nausea, vomiting, abdominal pain. The patient describes this as another flareup of her irritable bowel syndrome. This is the patient's third visit for this. She had been seen overnight last night, had labs and fluid and medication and was f eeling better and was able to go home. She states that probably 2-3 hours after she went home she had recurrence of the nausea and then started vomiting. She has had another 5-6 episodes of vomiting without seeing any blood or coffee- ground material. She does continue to have some epigastric, burning type abdominal pain. Onset/Timin -: days(s) Location: abdomen Quality: burning Consistency: constant Improves with: medication Worsens with: none Associated Symptoms: nausea/vomiting Treatments Prior to Arrival: none - Related Data Home Medications Medication Instructions Recorded Confirmed HYDROcodone/APAP 10-325MG [[place] 1 tab PO QID PRN 04/03/17 07/22/20 10-325] Loratadine [Claritin] 10 mg PO DAILY 04/03/17 07/22/20 Ergocalciferol [Vitamin D2 50,000 unit PO MO 02/13/20 07/22/20 (DRISDOL)] Dicyclomine [Bentyl] 20 mg PO HS 06/11/20 07/22/20 Pantoprazole Sodium [Protonix] 40 mg PO BID 06/11/20 07/22/20 FLUoxetine HCL [PROzac] 10 mg PO DAILY 07/21/20 07/22/20 Previous Rx's Medication Instructions Recorded Ondansetron HCl [Zofran] 4 mg PO Q8H PRN 5 Days #15 tab 06/13/20 Metoclopramide [Reglan] 10 mg PO ACHS #12 tab 07/21/20 Allergies Allergy/AdvReac Type Severity Reaction Status Date / Time propoxyphene Allergy Rash/Hives Verified 07/22/20 22:53 [From Sissy] Review of Systems ROS Statement: Those systems with pertinent positive or pertinent negative responses have been documented in the HPI. ROS Other: All systems not noted in ROS Statement are negative. Constitutional: Denies: fever, chills Respiratory: Denies: cough, dyspnea Cardiovascular: Denies: chest pain, palpitations Gastrointestinal: Reports: abdominal pain, nausea, vomiting. Denies: diarrhea, constipation, hematemesis, melena, hematochezia Genitourinary: Denies: dysuria, hematuria Musculoskeletal: Denies: back pain Skin: Denies: rash Neurological: Denies: headache, weakness, numbness Past Medical History Past Medical History: Fibromyalgia, Thyroid Disorder Additional Past Medical History / Comment(s): DDD , BULDGING DISCS, NEUROPATHY LEGS.,THYROID NODULES, HX ANEMIA, ENVIRONMENTAL ALLERGIES, CONSTIPATION & DIARRHEA, STATES VOMITING AND STOMACH PAIN FOR SEVERAL MONTHS.IBS, chronic gasteritis History of Any Multi-Drug Resistant Organisms: None Reported Past Surgical History: Hysterectomy, Orthopedic Surgery Additional Past Surgical History / Comment(s): rt wrist/forearm ,D&C, MASS ON VOCAL CORD SURGERY, AND BX. Past Anesthesia/Blood Transfusion Reactions: No Reported Reaction Additional Past Anesthesia/Blood Transfusion Reaction / Comment(s): CONSTIPATION POST-OP Past Psychological History: Anxiety, Depression Smoking Status: Former smoker, Vaper Past Alcohol Use History: None Reported Past Drug Use History: Marijuana - Past Family History Mother Family Medical History: No Reported History Father Additional Family Medical History / Comment(s): cardiovascular swelling General Exam Limitations: no limitations General appearance: alert, in no apparent distress Head exam: Present: atraumatic, normocephalic Eye exam: Present: normal appearance. Absent: scleral icterus, conjunctival injection ENT exam: Present: normal oropharynx Neck exam: Present: normal inspection Respiratory exam: Present: normal lung sounds bilaterally. Absent: respiratory distress, wheezes, rales, rhonchi, stridor Cardiovascular Exam: Present: regular rate, normal rhythm, normal heart sounds. Absent: systolic murmur, diastolic murmur, rubs, gallop GI/Abdominal exam: Present: soft. Absent: distended, tenderness, guarding, rebound, rigid, mass Extremities exam: Present: normal inspection, normal capillary refill. Absent: pedal edema, calf tenderness Back exam: Present: normal inspection. Absent: CVA tenderness (R), CVA tenderness (L) Neurological exam: Present: alert Skin exam: Present: warm, dry, intact, normal color. Absent: rash Course Vital Signs 07/22/20 07/22/20 07/23/20 22:21 23:35 01:00 Temperature 99.1 F 99.3 F 99.2 F Pulse Rate 68 70 68 Respiratory 18 18 18 Rate Blood Pressure 144/89 164/87 144/89 O2 Sat by Pulse 98 98 96 Oximetry Medical Decision Making - Lab Data Result diagrams: 07/22/20 23:26 07/22/20 22:36 Lab Results 07/22/20 07/22/20 07/22/20 Range/Units 22:36 22:36 22:36 WBC (3.8-10.6) k/uL RBC (3.80-5.40) m/uL Hgb (11.4-16.0) gm/dL Hct (34.0-46.0) % MCV (80.0-100.0) fL MCH (25.0-35.0) pg MCHC (31.0-37.0) g/dL RDW (11.5-15.5) % Plt Count (150-450) k/uL MPV Neutrophils % % Lymphocytes % % Monocytes % % Eosinophils % % Basophils % % Neutrophils # (1.3-7.7) k/uL Lymphocytes # (1.0-4.8) k/uL Monocytes # (0-1.0) k/uL Eosinophils # (0-0.7) k/uL Basophils # (0-0.2) k/uL Sodium 137 (137-145) mmol/L Potassium 4.2 (3.5-5.1) mmol/L Chloride 101 (98-107) mmol/L Carbon Dioxide 20 L (22-30) mmol/L Anion Gap 16 mmol/L BUN 12 (7-17) mg/dL Creatinine 0.76 (0.52-1.04) mg/dL Est GFR (CKD-EPI)AfAm >90 (>60 ml/min/1.73 sqM) Est GFR (CKD-EPI)NonAf >90 (>60 ml/min/1.73 sqM) Glucose 115 H (74-99) mg/dL Calcium 10.1 (8.4-10.2) mg/dL Total Bilirubin 1.0 (0.2-1.3) mg/dL AST 59 H (14-36) U/L ALT 54 H (4-34) U/L Alkaline Phosphatase 83 (38-126) U/L C-Reactive Protein <5.0 (<10.0) mg/L Total Protein 8.6 H (6.3-8.2) g/dL Albumin 5.2 H (3.5-5.0) g/dL Amylase 62 (30-110) U/L Lipase 84 (23-300) U/L Urine Color Yellow Urine Appearance Clear (Clear) Urine pH 6.0 (5.0-8.0) Ur Specific [place] 1.026 (1.001-1.035) Urine Protein 1+ H (Negative) Urine Glucose (UA) Negative (Negative) Urine Ketones 3+ H (Negative) Urine Blood Negative (Negative) Urine Nitrite Negative (Negative) Urine Bilirubin 1+ H (Negative) Urine Urobilinogen 2.0 (<2.0) mg/dL Ur Leukocyte Esterase Negative (Negative) Urine RBC 2 (0-5) /hpf Urine WBC 4 (0-5) /hpf Ur Squamous Epith Cells 1 (0-4) /hpf Hyaline Casts 7 H (0-2) /lpf Urine Mucus Many H (None) /hpf Urine HCG, Qual Not Detected (Not Detectd) 07/22/20 Range/Units 23:26 WBC 13.9 H (3.8-10.6) k/uL RBC 4.90 (3.80-5.40) m/uL Hgb 14.4 (11.4-16.0) gm/dL Hct 43.0 (34.0-46.0) % MCV 87.7 (80.0-100.0) fL MCH 29.3 (25.0-35.0) pg MCHC 33.4 (31.0-37.0) g/dL RDW 13.4 (11.5-15.5) % Plt Count 279 (150-450) k/uL MPV 7.7 Neutrophils % 69 % Lymphocytes % 24 % Monocytes % 4 % Eosinophils % 2 % Basophils % 0 % Neutrophils # 9.6 H (1.3-7.7) k/uL Lymphocytes # 3.3 (1.0-4.8) k/uL Monocytes # 0.6 (0-1.0) k/uL Eosinophils # 0.2 (0-0.7) k/uL Basophils # 0.1 (0-0.2) k/uL Sodium (137-145) mmol/L Potassium (3.5-5.1) mmol/L Chloride (98-107) mmol/L Carbon Dioxide (22-30) mmol/L Anion Gap mmol/L BUN (7-17) mg/dL Creatinine (0.52-1.04) mg/dL Est GFR (CKD-EPI)AfAm (>60 ml/min/1.73 sqM) Est GFR (CKD-EPI)NonAf (>60 ml/min/1.73 sqM) Glucose (74-99) mg/dL Calcium (8.4-10.2) mg/dL Total Bilirubin (0.2-1.3) mg/dL AST (14-36) U/L ALT (4-34) U/L Alkaline Phosphatase (38-126) U/L C-Reactive Protein (<10.0) mg/L Total Protein (6.3-8.2) g/dL Albumin (3.5-5.0) g/dL Amylase (30-110) U/L Lipase (23-300) U/L Urine Color Urine Appearance (Clear) Urine pH (5.0-8.0) Ur Specific [place] (1.001-1.035) Urine Protein (Negative) Urine Glucose (UA) (Negative) Urine Ketones (Negative) Urine Blood (Negative) Urine Nitrite (Negative) Urine Bilirubin (Negative) Urine Urobilinogen (<2.0) mg/dL Ur Leukocyte Esterase (Negative) Urine RBC (0-5) /hpf Urine WBC (0-5) /hpf Ur Squamous Epith Cells (0-4) /hpf Hyaline Casts (0-2) /lpf Urine Mucus (None) /hpf Urine HCG, Qual (Not Detectd) Disposition Clinical Impression: Intractable vomiting with nausea, Transaminitis Disposition: ADMITTED IP TO THIS HOSP Condition: Good Is patient prescribed a controlled substance at d/c from ED?: No Referrals: Digna Alonso MD [Primary Care Provider] - 1-2 days
[2020-07-22 23:09] LABS: ALT 54 U/L (4-34); AST 59 U/L (14-36); African American GFR (CKD) >90 (>60 ml/min/1.73 sqM); Albumin 5.2 g/dL (3.5-5.0); Alkaline Phosphatase 83 U/L (38-126); Amylase 62 U/L (30-110); Anion Gap 16 mmol/L; Blood Urea Nitrogen 12 mg/dL (7-17); C Reactive Protein <5.0 mg/L (<10.0); Calcium 10.1 mg/dL (8.4-10.2); Carbon Dioxide 20 mmol/L (22-30); Chloride 101 mmol/L (98-107); Glucose 115 mg/dL (74-99); Lipase 84 U/L (23-300); Non-African American GFR(CKD) >90 (>60 ml/min/1.73 sqM); Potassium 4.2 mmol/L (3.5-5.1); Sodium 137 mmol/L (137-145); Total Protein 8.6 g/dL (6.3-8.2)
--- NOTE | 2020-07-22 23:36 | XR ---
EXAMINATION TYPE: XR KUB DATE OF EXAM: 07/22/2020 COMPARISON: NONE HISTORY: Abdominal pain TECHNIQUE: 2 views upright There is no sign of intestinal obstruction or pneumoperitoneum. Fecal pattern is normal. There is no sign of a mass. There are no pathologic calcifications over the kidneys. Bony structures are intact. Lung bases are clear. IMPRESSION: Nonacute abdomen.
[2020-07-22 23:45] LABS: Basophils # (A) 0.1 k/uL (0-0.2); Basophils % (A) 0 %; Eosinophils # (A) 0.2 k/uL (0-0.7); Eosinophils % (A) 2 %; HGB 14.4 gm/dL (11.4-16.0); Lymphocytes # (A) 3.3 k/uL (1.0-4.8); Lymphocytes % (A) 24 %; MCH 29.3 pg (25.0-35.0); MCHC 33.4 g/dL (31.0-37.0); MCV 87.7 fL (80.0-100.0); Mean Platelet Volume 7.7; Monocytes # (A) 0.6 k/uL (0-1.0); Monocytes % (A) 4 %; Neutrophils # (A) 9.6 k/uL (1.3-7.7); Neutrophils % (A) 69 %; Platelet Count 279 k/uL (150-450); RDW 13.4 % (11.5-15.5); WBC 13.9 k/uL (3.8-10.6)
[2020-07-22] MEDS ORDERED: METOCLOPRAMIDE 5 MG/ML 2 ML VIAL IVP STA (23:48)
[2020-07-22] MEDS ORDERED: SODIUM CHLORIDE 0.9% 500 ML 500 ML IV STA (23:48)
[2020-07-22] MEDS ORDERED: MORPHINE SULFATE 4 MG/ML SYRINGE IV STA (23:48)
[2020-07-23 00:08] LABS: Appearance,Urine Clear (Clear); Bilirubin,Urine 1+ (Negative); Blood,Urine Negative (Negative); Color,Urine Yellow; Glucose,Urine (UA) Negative (Negative); Hyaline Casts,Urine 7 /lpf (0-2); Ketones,Urine 3+ (Negative); Leukocyte Esterase,Urine Negative (Negative); Mucus,Urine Many /hpf; Nitrite,Urine Negative (Negative); Protein,Urine 1+ (Negative); RBC,Urine 2 /hpf (0-5); Specific Gravity,Urine 1.026 (1.001-1.035); Squamous Epithelial Cell,Urine 1 /hpf (0-4); WBC,Urine 4 /hpf (0-5)
[2020-07-23] MEDS ORDERED: DEXTROSE 5%-0.45% NACL 1,000 ML IV ONE (01:18)
[2020-07-23] MEDS ORDERED: ONDANSETRON 4 MG/2 ML VIAL IVP STA (01:24)
[2020-07-23] MEDS ORDERED: PROCHLORPERAZINE SUPPOSITORY 25 MG SUPP RECTAL PRN (01:24)
[2020-07-23] MEDS ORDERED: NALOXONE 0.4 MG/ML 1 ML VIAL IV PRN (01:24)
[2020-07-23] MEDS: SODIUM CHLORIDE 0.9% 1,000 ML IV SCH ×3 (01:42→16:57)
[2020-07-23] MEDS ORDERED: PROMETHAZINE 25 MG TAB PO PRN (02:00)
[2020-07-23] MEDS: MORPHINE SULFATE 4 MG/ML SYRINGE IVP PRN ×4 (03:24→21:43)
[2020-07-23] MEDS: FAMOTIDINE 20 MG TAB PO SCH ×2 (07:57→20:56)
[2020-07-23] MEDS: ONDANSETRON 4 MG/2 ML VIAL IVP PRN ×2 (08:52→16:55)
[2020-07-23] MEDS: BUTALB/APAP/CAFF 50-325-40MG TAB PO PRN ×2 (16:55→20:56)
[2020-07-24] MEDS: BUTALB/APAP/CAFF 50-325-40MG TAB PO PRN (01:16)
[2020-07-24] MEDS: SODIUM CHLORIDE 0.9% 1,000 ML IV SCH ×4 (01:16→23:36)
[2020-07-24] MEDS: MORPHINE SULFATE 4 MG/ML SYRINGE IVP PRN ×4 (03:27→23:49)
[2020-07-24 07:51] LABS: African American GFR (CKD) >90 (>60 ml/min/1.73 sqM); Anion Gap 5 mmol/L; Blood Urea Nitrogen 10 mg/dL (7-17); Calcium 9.1 mg/dL (8.4-10.2); Carbon Dioxide 29 mmol/L (22-30); Chloride 104 mmol/L (98-107); Glucose 88 mg/dL (74-99); Non-African American GFR(CKD) >90 (>60 ml/min/1.73 sqM); Potassium 3.7 mmol/L (3.5-5.1); Sodium 138 mmol/L (137-145)
[2020-07-24] MEDS: FAMOTIDINE 20 MG TAB PO SCH ×2 (09:08→20:45)
[2020-07-24 20:13] VITALS: RESP 16
[2020-07-24] MEDS: KETOROLAC 15 MG/ML 1 ML VIAL IVP PRN (20:45)
--- NOTE | 2020-07-24 21:01 | P.HPIM ---
History of Present Illness H&P Date: 07/23/20 Chief Complaint: Abdominal pain/vomiting 39-year-old woman who presents with recurrence of nausea, vomiting, abdominal pain. The patient describes this as another flareup of her irritable bowel syndrome. This is the patient's third visit for this. She had been seen overnight last night, had labs and fluid and medication and was feeling better and was able to go home. She states that probably 2-3 hours after she went home she had recurrence of the nausea and then started vomiting. She has had another 5-6 episodes of vomiting without seeing any blood or coffee-ground material. She does continue to have some epigastric, burning type abdominal pain. Review of Systems ROS Other: All systems not noted in ROS Statement are negative. Constitutional: Denies: fever, chills Respiratory: Denies: cough, dyspnea Cardiovascular: Denies: chest pain, palpitations Gastrointestinal: Reports: abdominal pain, nausea, vomiting. Denies: diarrhea, constipation, hematemesis, melena, hematochezia Genitourinary: Denies: dysuria, hematuria Musculoskeletal: Denies: back pain Skin: Denies: rash Neurological: Denies: headache, weakness, numbness Past Medical History Past Medical History: Fibromyalgia, Thyroid Disorder Additional Past Medical History / Comment(s): DDD , BULDGING DISCS, NEUROPATHY LEGS.,THYROID NODULES, HX ANEMIA, ENVIRONMENTAL ALLERGIES, CONSTIPATION & DI ARRHEA, STATES VOMITING AND STOMACH PAIN FOR SEVERAL MONTHS.IBS, chronic gasteritis History of Any Multi-Drug Resistant Organisms: None Reported Past Surgical History: Hysterectomy, Orthopedic Surgery Additional Past Surgical History / Comment(s): rt wrist/forearm ,D&C, MASS ON VOCAL CORD SURGERY, AND BX. Past Anesthesia/Blood Transfusion Reactions: Postoperative Nausea & Vomiting (PONV) Additional Past Anesthesia/Blood Transfusion Reaction / Comment(s): CONSTIPATION POST-OP Past Psychological History: Anxiety Smoking Status: Former smoker Past Alcohol Use History: None Reported Additional Past Alcohol Use History / Comment(s): QUIT SMOKING 2019, HX OF 1 PPD, STARTED SMOKING AGE 14 Past Drug Use History: Marijuana - Past Family History Mother Family Medical History: No Reported History Father Additional Family Medical History / Comment(s): cardiovascular swelling Medications and Allergies Home Medications Medication Instructions Recorded Confirmed Type HYDROcodone/APAP 10-325MG [[place] 1 tab PO QID PRN 04/03/17 07/22/20 History 10-325] Loratadine [Claritin] 10 mg PO DAILY 04/03/17 07/22/20 History Ergocalciferol [Vitamin D2 50,000 unit PO MO 02/13/20 07/22/20 History (DRISDOL)] Dicyclomine [Bentyl] 20 mg PO HS 06/11/20 07/22/20 History Pantoprazole Sodium [Protonix] 40 mg PO BID 06/11/20 07/22/20 History Ondansetron HCl [Zofran] 4 mg PO Q8H PRN 5 Days #15 tab 06/13/20 07/22/20 Rx FLUoxetine HCL [PROzac] 10 mg PO DAILY 07/21/20 07/22/20 History Metoclopramide [Reglan] 10 mg PO ACHS #12 tab 07/21/20 07/22/20 Rx Allergies Allergy/AdvReac Type Severity Reaction Status Date / Time propoxyphene Allergy Rash/Hives Verified 07/22/20 22:53 [From MarthaSumit] Physical Exam Vitals: Vital Signs Temp Pulse Pulse Resp BP BP Pulse Ox 07/23/20 08:35 98.1 F 64 20 152/87 96 07/23/20 02:43 97.2 F L 75 16 141/85 95 07/23/20 01:55 98.9 F 72 16 138/82 98 07/23/20 01:00 99.2 F 68 18 144/89 96 07/22/20 23:35 99.3 F 70 18 164/87 98 07/22/20 22:21 99.1 F 68 18 144/89 98 Intake and Output 07/22/20 07/23/20 07/23/20 22:59 06:59 14:59 Other: # Voids 1 Weight 84.368 kg 79.379 kg Results CBC & Chem 7: 07/22/20 23:26 07/24/20 07:06 Labs: Abnormal Lab Results - Last 24 Hours (Table) 07/22/20 07/22/20 07/22/20 Range/Units 22:36 22:36 23:26 WBC 13.9 H (3.8-10.6) k/uL Neutrophils # 9.6 H (1.3-7.7) k/uL Carbon Dioxide 20 L (22-30) mmol/L Glucose 115 H (74-99) mg/dL AST 59 H (14-36) U/L ALT 54 H (4-34) U/L Total Protein 8.6 H (6.3-8.2) g/dL Albumin 5.2 H (3.5-5.0) g/dL Urine Protein 1+ H (Negative) Urine Ketones 3+ H (Negative) Urine Bilirubin 1+ H (Negative) Hyaline Casts 7 H (0-2) /lpf Urine Mucus Many H (None) /hpf Thrombosis Risk Factor Assmnt - Choose All That Apply Any of the Below Risk Factors Present?: Yes Each Factor Represents 1 point: Age 41-60 years, Obesity (BMI >25) Other Risk Factors: No Thrombosis Risk Factor Assessment Total Risk Factor Score: 2 Thrombosis Risk Factor Assessment Level: Low Risk Assessment and Plan Assessment: 1. Intractable nausea and vomiting; IV Protonix; IV fluids; consult GI 2. Transaminitis; etiology unclear; we will plan to monitor transaminases with plan to order an abdominal ultrasound if transaminases continue to remain elevated 3. Mild leukocytosis; possibly due to reactive; monitor closely; continue with home pain regimen 4. Fibromyalgia 5. Depression; continue with home dose of Prozac
[2020-07-25] MEDS: KETOROLAC 15 MG/ML 1 ML VIAL IVP PRN ×3 (03:32→14:37)
[2020-07-25] MEDS: SODIUM CHLORIDE 0.9% 1,000 ML IV SCH ×2 (06:29→17:01)
[2020-07-25] MEDS: MORPHINE SULFATE 4 MG/ML SYRINGE IVP PRN ×2 (06:30→12:43)
[2020-07-25 07:39] LABS: Basophils # (A) 0.1 k/uL (0-0.2); Basophils % (A) 1 %; Eosinophils # (A) 0.3 k/uL (0-0.7); Eosinophils % (A) 4 %; HCT 37.7 % (34.0-46.0); HGB 13.3 gm/dL (11.4-16.0); Lymphocytes # (A) 2.7 k/uL (1.0-4.8); Lymphocytes % (A) 39 %; MCHC 35.2 g/dL (31.0-37.0); MCV 88.1 fL (80.0-100.0); Mean Platelet Volume 7.6; Monocytes # (A) 0.6 k/uL (0-1.0); Monocytes % (A) 8 %; Neutrophils # (A) 3.2 k/uL (1.3-7.7); Neutrophils % (A) 47 %; Platelet Count 187 k/uL (150-450); RBC 4.28 m/uL (3.80-5.40); WBC 6.9 k/uL (3.8-10.6)
[2020-07-25 07:45] LABS: African American GFR (CKD) >90 (>60 ml/min/1.73 sqM); Anion Gap 9 mmol/L; Blood Urea Nitrogen 8 mg/dL (7-17); Calcium 8.6 mg/dL (8.4-10.2); Carbon Dioxide 23 mmol/L (22-30); Chloride 104 mmol/L (98-107); Glucose 92 mg/dL (74-99); Non-African American GFR(CKD) >90 (>60 ml/min/1.73 sqM); Sodium 136 mmol/L (137-145)
[2020-07-25 08:13] LABS: Potassium 3.8 mmol/L (3.5-5.1)
[2020-07-25] MEDS: FAMOTIDINE 20 MG TAB PO SCH (08:37)
--- NOTE | 2020-07-25 12:07 | P.CONS ---
History of Present Illness - Reason for Consult Consult date: 07/24/20 Nausea and vomiting Requesting physician: Leonardo Villarreal - Chief Complaint Nausea and vomiting - History of Present Illness 39-year-old female with a medical history significant for irritable bowel syndrome who presented to the hospital due to complaints of nausea, vomiting and abdominal pain. The patient has been having episodes of similar pain have been occurring for months. She has been evaluated with EGD and colonoscopy on 01/2020 with findings of mild gastritis and mild ileitis with no evidence of inflammatory process found on biopsies of the ileum and colon. The patient's reports that she takes Zofran, Protonix and Bentyl at home for treatment of her symptoms. However she reports she was unable to tolerate the medications when she began having the vomiting. She does report that she has changed her diet and this is improved with symptoms. She denies any change in bowel habits or diarrhea and has not been having any signs or symptoms of GI bleeding. She associates her symptoms with increased stress in her life recently. X-ray of the abdomen negative on presentation. Amylase 62 lipase 84, WBC 13.9, hemoglobin 14.4, platelet count 279,000, total bilirubin 1, alkaline phosphatase 83, AST 59 and ALT 54. Review of Systems REVIEW OF SYSTEMS: CONSTITUTIONAL: Denies any fevers, chills, weight change or fatigue. CARDIOVASCULAR: Denies any chest pain, palpitations high or low blood pressures RESPIRATORY: Denies any shortness of breath, hemoptysis or cough. GENITOURINARY: No dysuria or hematuria. MUSCULOSKELETAL: No weakness reported. SKIN: Denies any new rashes or lesions, jaundice or pallor. PSYCHIATRIC: Denies any depression or anxiety. NEUROLOGY: Denies headache, denies any new focal deficits. EARS/NOSE/THROAT: No recent hearing change, congestion, nasal discharge or sore throat. EYES: No pain in eyes, discharge or change in vision. GASTROINTESTINAL: As per HPI. Past Medical History Past Medical History: Fibromyalgia, Thyroid Disorder Additional Past Medical History / Comment(s): DDD , BULDGING DISCS, NEUROPATHY LEGS.,THYROID NODULES, HX ANEMIA, ENVIRONMENTAL ALLERGIES, CONSTIPATION & DIARRHEA, STATES VOMITING AND STOMACH PAIN FOR SEVERAL MONTHS.IBS, chronic gasteritis History of Any Multi-Drug Resistant Organisms: None Reported Past Surgical History: Hysterectomy, Orthopedic Surgery Additional Past Surgical History / Comment(s): rt wrist/forearm ,D&C, MASS ON VOCAL CORD SURGERY, AND BX. Past Anesthesia/Blood Transfusion Reactions: Postoperative Nausea & Vomiting (PONV) Additional Past Anesthesia/Blood Transfusion Reaction / Comm: CONSTIPATION POST- OP Past Psychological History: Anxiety Smoking Status: Former smoker Past Alcohol Use History: None Reported Additional Past Alcohol Use History / Comment(s): QUIT SMOKING 2019, HX OF 1 PPD, STARTED SMOKING AGE 14 Past Drug Use History: Marijuana - Past Family History Mother Family Medical History: No Reported History Father Additional Family Medical History / Comment(s): cardiovascular swelling Medications and Allergies Home Medications Medication Instructions Recorded Confirmed Type HYDROcodone/APAP 10-325MG [[place] 1 tab PO QID PRN 04/03/17 07/22/20 History 10-325] Loratadine [Claritin] 10 mg PO DAILY 04/03/17 07/22/20 History Ergocalciferol [Vitamin D2 50,000 unit PO MO 02/13/20 07/22/20 History (DRISDOL)] Dicyclomine [Bentyl] 20 mg PO HS 06/11/20 07/22/20 History Pantoprazole Sodium [Protonix] 40 mg PO BID 06/11/20 07/22/20 History Ondansetron HCl [Zofran] 4 mg PO Q8H PRN 5 Days #15 tab 06/13/20 07/22/20 Rx FLUoxetine HCL [PROzac] 10 mg PO DAILY 07/21/20 07/22/20 History Metoclopramide [Reglan] 10 mg PO ACHS #12 tab 07/21/20 07/22/20 Rx Allergies Allergy/AdvReac Type Severity Reaction Status Date / Time propoxyphene Allergy Rash/Hives Verified 07/22/20 22:53 [From Martha-Sumit] Physical Exam Vitals: Vital Signs Temp Pulse Resp BP Pulse Ox 07/24/20 08:43 98.1 F 71 16 112/76 98 07/24/20 02:26 98.8 F 67 16 116/76 97 07/23/20 19:53 98.1 F 63 16 116/74 95 07/23/20 16:05 98.2 F 94 16 106/70 96 Intake and Output 07/23/20 07/24/20 07/24/20 22:59 06:59 14:59 Intake Total 1790 270 Output Total 60 Balance 1730 270 Intake: Intake, IV Titration 1250 Amount Sodium Chloride 0.9% 1, 1250 000 ml @ 125 mls/hr IV . Q8H [facility] Rx#:[id number] Oral 540 270 Output: Emesis 60 Other: Voiding Method Toilet # Voids 4 2 # Emeses 1 On physical examination, patient appears comfortable in no apparent distress. HEAD: Normocephalic, atraumatic. EYES: No scleral icterus. No conjunctival injection. MOUTH: No lesions, tongue midline. NECK: Trachea midline, no gross abnormalities. CHEST: Clear to auscultation with no wheezing or rhonchi appreciated. HEART: Regular rate and rhythm. ABDOMEN: Soft, nontender to palpation. Bowel sounds are positive. No organomegaly. No guarding or rigidity. EXTREMITIES: No pedal edema. SKIN: No rashes, no jaundice. NEUROLOGIC: Alert and oriented x3. No focal deficits. Results CBC & Chem 7: 07/25/20 06:55 07/25/20 06:55 Abdominal x-ray: report reviewed (No acute findings on abdominal x-ray) Assessment and Plan (1) Intractable vomiting with nausea Narrative/Plan: 39-year-old female presenting to the hospital with intractable nausea and vomiting and associated abdominal pain. She has had episodes of the similar type of symptoms in the past and is currently on Protonix, Bentyl and Zofran at home. She reported that when the symptoms started she was unable to take the medication. She attributes them to increased stress in her life recently. She also tried dietary modifications in the outpatient setting and reported that symptoms were somewhat improved. X-ray of the abdomen was negative for any acut e intra-abdominal process. Amylase and lipase normal. Hemoglobin 14.4 with only mildly elevated liver enzymes with total bilirubin 1, alkaline phosphatase 83, AST 59 and ALT 54. Likely related to underlying functional bowel disorder, cannot rule out gastroenteritis or other etiology. Current Visit: Yes Status: Acute Code(s): R11.2 - NAUSEA WITH VOMITING, UNSPECIFIED SNOMED Code(s): 227295758 (2) Abdominal pain Current Visit: No Status: Acute Code(s): R10.9 - UNSPECIFIED ABDOMINAL PAIN SNOMED Code(s): 18629808 (3) IBS (irritable bowel syndrome) Current Visit: No Status: Acute Code(s): K58.9 - IRRITABLE BOWEL SYNDROME WITHOUT DIARRHEA SNOMED Code(s): 73141871 Plan: Supportive care Okay for diet as tolerated Continue Protonix therapy Continue Bentyl therapy Zofran as needed for nausea No plans for any endoscopic evaluation at this time Currently symptoms are improving, patient is okay for discharge when otherwise medically stable Thank you for allowing us to participate in the care of the patient
--- NOTE | 2020-07-25 14:16 | P.PN ---
Subjective Progress Note Date: 07/25/20 Principal diagnosis: Irritable bowel syndrome, nausea and vomiting The patient is reporting that symptoms are much improved. She is feeling well and tolerating diet. No acute complaints at this time. Objective - Vital Signs Vital signs: Vital Signs Temp 99.2 F 07/25/20 08:19 Pulse 65 07/25/20 08:19 Resp 16 07/25/20 08:19 BP 124/83 07/25/20 08:19 Pulse Ox 97 07/25/20 08:19 Intake & Output 07/24/20 07/25/20 07/25/20 18:59 06:59 18:59 Other: # Voids 2 # Bowel Movements 0 - Exam On physical examination, patient appears comfortable in no apparent distress. HEAD: Normocephalic, atraumatic. EYES: No scleral icterus. No conjunctival injection. MOUTH: No lesions, tongue midline. NECK: Trachea midline, no gross abnormalities. ABDOMEN: Soft, nontender to palpation. Bowel sounds are positive. No organomegaly. No guarding or rigidity. EXTREMITIES: No pedal edema. SKIN: No rashes, no jaundice. NEUROLOGIC: Alert and oriented x3. No focal deficits. - Labs CBC & Chem 7: 07/25/20 06:55 07/25/20 06:55 Labs: Abnormal Lab Results - Last 24 Hours (Table) 07/25/20 Range/Units 06:55 Sodium 136 L (137-145) mmol/L Assessment and Plan (1) Intractable vomiting with nausea Narrative/Plan: 39-year-old female presenting to the hospital with intractable nausea and vomiting and associated abdominal pain. She has had episodes of the similar type of symptoms in the past and is currently on Protonix, Bentyl and Zofran at home. She reported that when the symptoms started she was unable to take the medication. She attributes them to increased stress in her life recently. She also tried dietary modifications in the outpatient setting and reported that symptoms were somewhat improved. X-ray of the abdomen was negative for any acute intra-abdominal process. Amylase and lipase normal. Hemoglobin 14.4 with only mildly elevated liver enzymes with total bilirubin 1, alkaline phosphatase 83, AST 59 and ALT 54. Likely related to underlying functional bowel disorder, cannot rule out gastroenteritis or other etiology. Overall symptoms are improving greatly. No acute complaints. Current Visit: Yes Status: Acute Code(s): R11.2 - NAUSEA WITH VOMITING, UNSPECIFIED SNOMED Code(s): 556184685 (2) Abdominal pain Current Visit: No Status: Acute Code(s): R10.9 - UNSPECIFIED ABDOMINAL PAIN SNOMED Code(s): 31001267 (3) IBS (irritable bowel syndrome) Current Visit: No Status: Acute Code(s): K58.9 - IRRITABLE BOWEL SYNDROME WITHOUT DIARRHEA SNOMED Code(s): 88432462 Plan: Supportive care Okay for diet Continue Protonix therapy Continue Bentyl therapy Zofran as needed for nausea No plans for any endoscopic evaluation at this time Currently symptoms are improving, patient is okay for discharge when otherwise medically stable Thank you for allowing us to participate in the care of the patient
[2020-07-25 14:54] VITALS: BP 133/85; PULSE 67; TEMP 98.2
--- NOTE | 2020-07-25 18:27 | P.PN ---
Subjective Progress Note Date: 07/24/20 07/25/2020 Patient does report some improvement in symptoms ; has been evaluated by GI and recommended Supportive care Okay for diet as tolerated; Continue Protonix therapy; Continue Bentyl therapy Zofran as needed for nausea No plans for any endoscopic evaluation at this time Objective - Vital Signs Vital signs: Vital Signs Temp 98.2 F 07/24/20 19:54 Pulse 62 07/24/20 19:54 Resp 16 07/24/20 19:54 BP 112/74 07/24/20 19:54 Pulse Ox 97 07/24/20 19:54 Intake & Output 07/24/20 07/24/20 07/25/20 06:59 18:59 06:59 Intake Total 270 Balance 270 Intake: Oral 270 Other: Voiding Method Toilet # Voids 2 # Bowel Movements 0 - Exam PHYSICAL EXAMINATION: GENERAL: The patient is alert and oriented x3, not in any acute distress. Well developed, well nourished. HEENT: Pupils are round and equally reacting to light. EOMI. No scleral icterus. No conjunctival pallor. Normocephalic, atraumatic. No pharyngeal erythema. No thyromegaly. CARDIOVASCULAR: S1 and S2 present. No murmurs, rubs, or gallops. PULMONARY: Chest is clear to auscultation, no wheezing or crackles. ABDOMEN: Soft, nontender, nondistended, normoactive bowel sounds. No palpable organomegaly. MUSCULOSKELETAL: No joint swelling or deformity. EXTREMITIES: No cyanosis, clubbing, or pedal edema. NEUROLOGICAL: Gross neurological examination did not reveal any focal deficits. SKIN: No rashes. - Labs CBC & Chem 7: 07/25/20 06:55 07/25/20 06:55 Assessment and Plan Assessment: 1. Intractable nausea and vomiting; IV Protonix; IV fluids; consult GI 2. Transaminitis; etiology unclear; we will plan to monitor transaminases with plan to order an abdominal ultrasound if transaminases continue to remain elevated 3. Mild leukocytosis; possibly due to reactive; monitor closely; continue with home pain regimen 4. Fibromyalgia 5. Depression; continue with home dose of Prozac
--- NOTE | 2020-07-25 18:29 | P.DS ---
Providers Date of admission: 07/23/20 01:24 Expected date of discharge: 07/25/20 Attending physician: Leonardo Villarreal Consults: 07/23/20 13:49 Consult Physician Routine Consulting Provider: Devika Allison Consult Reason/Comments: Intractable nausea and vomiting Do you want consulting provider notified?: Yes Primary care physician: Yemi Rocio [facility] Course: 39-year-old woman who presents with recurrence of nausea, vomiting, abdominal pain. The patient describes this as another flareup of her irritable bowel syndrome. This is the patient's third visit for this. She had been seen overnight last night, had labs and fluid and medication and was feeling better and was able to go home. She states that probably 2-3 hours after she went home she had recurrence of the nausea and then started vomiting. She has had another 5-6 episodes of vomiting without seeing any blood or coffee-ground material. She does continue to have some epigastric, burning type abdominal pain. 07/25/2020 Patient does report some improvement in symptoms ; has been evaluated by GI and recommended Supportive care Okay for diet as tolerated; Continue Protonix therapy; Continue Bentyl therapy Zofran as needed for nausea No plans for any endoscopic evaluation at this time Patient Condition at Discharge: Good Plan - Discharge Summary Discharge Rx Participant: No New Discharge Prescriptions: Continue Loratadine [Claritin] 10 mg PO DAILY HYDROcodone/APAP 10-325MG [[place] 10-325] 1 tab PO QID PRN PRN Reason: Pain Ergocalciferol [Vitamin D2 (DRISDOL)] 50,000 unit PO MO Pantoprazole Sodium [Protonix] 40 mg PO BID Dicyclomine [Bentyl] 20 mg PO HS Ondansetron HCl [Zofran] 4 mg PO Q8H PRN 5 Days #15 tab PRN Reason: Nausea And Vomiting FLUoxetine HCL [PROzac] 10 mg PO DAILY Metoclopramide [Reglan] 10 mg PO ACHS #12 tab Discharge Medication List HYDROcodone/APAP 10-325MG [[place] 10-325] 1 tab PO QID PRN 04/03/17 [History] Loratadine [Claritin] 10 mg PO DAILY 04/03/17 [History] Ergocalciferol [Vitamin D2 (DRISDOL)] 50,000 unit PO MO 02/13/20 [History] Dicyclomine [Bentyl] 20 mg PO HS 06/11/20 [History] Pantoprazole Sodium [Protonix] 40 mg PO BID 06/11/20 [History] Ondansetron HCl [Zofran] 4 mg PO Q8H PRN 5 Days #15 tab 06/13/20 [Rx] FLUoxetine HCL [PROzac] 10 mg PO DAILY 07/21/20 [History] Metoclopramide [Reglan] 10 mg PO ACHS #12 tab 07/21/20 [Rx] Follow up Appointment(s)/Referral(s): Digna Alonso MD [Primary Care Provider] - 1-2 days Activity/Diet/Wound Care/Special Instructions: Continue diet as tolerated fluids are encouraged. continue home medications as directed by physician. Follow up withing family doctor within one week of discharge to address needs following discharge. Call family doctor with any questions comments concerns worsening returning symptoms, fever, not tolerating diet or fluids, pain not controlled by medications prescribed to you. Discharge Disposition: HOME SELF-CARE
== END 2020-07-25 17:47 | disposition home or self-care (01) ==
LOC: EC 22:10 → 6PED 07-23 01:24
PROVIDERS: ADMIT Hospitalist; ATTEND Hospitalist
DX: K58.0 Irritable bowel syndrome with diarrhea (principal); R11.2 Nausea with vomiting, unspecified; R74.01 Elevation of levels of liver transaminase levels; D72.829 Elevated white blood cell count, unspecified; M79.7 Fibromyalgia; F32.9 Major depressive disorder, single episode, unspecified; R74.8 Abnormal levels of other serum enzymes; G62.9 Polyneuropathy, unspecified; D64.9 Anemia, unspecified; E04.2 Nontoxic multinodular goiter; Z90.710 Acquired absence of both cervix and uterus; F41.9 Anxiety disorder, unspecified; Z87.891 Personal history of nicotine dependence; Z79.891 Long term (current) use of opiate analgesic; Z79.899 Other long term (current) drug therapy; Z88.5 Allergy status to narcotic agent; E66.9 Obesity, unspecified; Z68.28 Body mass index [BMI] 28.0-28.9, adult; Z82.49 Family history of ischemic heart disease and other diseases of the circulatory system
CPT/HCPCS: 96361 ×4; 96375 ×2; 96376 ×4; 96374; 99285; 36415; 80053; 80048 ×2; 82150; 83690; 85025 ×2; 86140; 81001; 81025; 74018; G0378 ×3; J2270 ×4; J2765; J2405 ×2; J1885 ×2

== ENCOUNTER 2020-09-28 12:10 | Emergency (ER) | payer MEDICARE, OTHER ==
[2020-09-28 12:28] VITALS: PULSE 73; TEMP 98.4
[2020-09-28] MEDS ORDERED: ONDANSETRON 4 MG/2 ML VIAL IVP STA (12:48)
[2020-09-28] MEDS ORDERED: SODIUM CHLORIDE 0.9% 500 ML 500 ML IV ONE (12:48)
[2020-09-28] MEDS ORDERED: DICYCLOMINE 10 MG/ML 2 ML AMP IM STA (12:48)
[2020-09-28] MEDS ORDERED: PANTOPRAZOLE 40 MG/10 ML VIAL IVP STA (12:49)
[2020-09-28] MEDS ORDERED: MORPHINE SULFATE 2 MG/ML SYRINGE IVP STA (12:49)
[2020-09-28] MEDS ORDERED: SODIUM CHLORIDE 0.9% 1,000 ML IV SCH (13:00)
[2020-09-28 13:09] LABS: Basophils # (A) 0.1 k/uL (0-0.2); Basophils % (A) 1 %; Eosinophils # (A) 0.2 k/uL (0-0.7); Eosinophils % (A) 1 %; HCT 45.9 % (34.0-46.0); HGB 15.9 gm/dL (11.4-16.0); Lymphocytes # (A) 1.5 k/uL (1.0-4.8); Lymphocytes % (A) 8 %; MCH 30.7 pg (25.0-35.0); MCHC 34.7 g/dL (31.0-37.0); MCV 88.5 fL (80.0-100.0); Mean Platelet Volume 7.5; Monocytes # (A) 0.6 k/uL (0-1.0); Monocytes % (A) 3 %; Neutrophils # (A) 16.6 k/uL (1.3-7.7); Neutrophils % (A) 87 %; Platelet Count 316 k/uL (150-450); RBC 5.19 m/uL (3.80-5.40); RDW 14.1 % (11.5-15.5); WBC 19.1 k/uL (3.8-10.6)
[2020-09-28 13:21] LABS: Amorphous Sediment,Urine Rare /hpf; Appearance,Urine Turbid (Clear); Bacteria,Urine Many /hpf; Bilirubin,Urine 1+ (Negative); Blood,Urine Small (Negative); Color,Urine Yellow; Glucose,Urine (UA) Negative (Negative); Ketones,Urine 3+ (Negative); Leukocyte Esterase,Urine Small (Negative); Mucus,Urine Many /hpf; Nitrite,Urine Negative (Negative); Protein,Urine 3+ (Negative); RBC,Urine 3 /hpf (0-5); Specific Gravity,Urine 1.029 (1.001-1.035); Squamous Epithelial Cell,Urine 31 /hpf (0-4); WBC,Urine 21 /hpf (0-5)
[2020-09-28 13:30] LABS: ALT 84 U/L (4-34); AST 32 U/L (14-36); African American GFR (CKD) >90 (>60 ml/min/1.73 sqM); Albumin 5.7 g/dL (3.5-5.0); Alkaline Phosphatase 155 U/L (38-126); Anion Gap 20 mmol/L; Blood Urea Nitrogen 21 mg/dL (7-17); Calcium 11.2 mg/dL (8.4-10.2); Carbon Dioxide 23 mmol/L (22-30); Chloride 100 mmol/L (98-107); Glucose 133 mg/dL (74-99); Lipase 43 U/L (23-300); Non-African American GFR(CKD) 80 (>60 ml/min/1.73 sqM); Potassium 3.6 mmol/L (3.5-5.1); Sodium 143 mmol/L (137-145); Total Bilirubin 0.7 mg/dL (0.2-1.3); Total Protein 9.9 g/dL (6.3-8.2)
[2020-09-28] MEDS ORDERED: SODIUM CHLORIDE 0.9% 1,000 ML IV ONE ×2 (13:42→14:24)
--- NOTE | 2020-09-28 14:20 | CT ---
EXAMINATION TYPE: CT abdomen pelvis w con DATE OF EXAM: 09/28/2020 COMPARISON: 07/21/2020 INDICATION: Abd pain DLP: 875.8 mGycm, Automated exposure control for dose reduction was used. CONTRAST: 100 mL of Isovue 300. Study performed without Oral Contrast TECHNIQUE: Axial images were obtained from above the diaphragm to the pubic rami in the axial plane a t 5 mm thick sections. Reconstructed images are reviewed on the computer in the coronal plane. FINDINGS: Limited CT sections are obtained the lung bases. The lung bases are clear. CT ABDOMEN: Liver: Normal Spleen: Normal Pancreas: Normal Adrenal glands: The adrenal glands are normal. Gallbladder: Normal Kidneys: No masses are evident. No hydronephrosis is present. No cysts are present. Delayed images were obtained through the kidneys, which remain unremarkable. Aorta: Normal Inferior vena cava: Normal. CT PELVIS: Loops of bowel within the abdomen and pelvis are normal. Study is without oral contrast limiting bowel evaluation. Appendix: Normal as visualized. Urinary bladder: Normal. Genitourinary structures: Uterus and ovaries are not identified. Osseous structures: No suspicious lytic or sclerotic lesions. IMPRESSIONS: 1. Normal CT abdomen and pelvis
[2020-09-28] MEDS ORDERED: HYDROmorphone 0.5 MG/0.5 ML SYRINGE IVP STA ×2 (14:24)
[2020-09-28] MEDS ORDERED: METOCLOPRAMIDE 5 MG/ML 2 ML VIAL IVP STA (14:27)
--- NOTE | 2020-09-28 14:27 | ED ---
Abdominal Pain HPI - General Chief Complaint: Abdominal Pain Stated Complaint: IBS flare Time Seen by Provider: 09/28/20 12:31 Source: patient Mode of arrival: wheelchair Limitations: no limitations - History of Present Illness Initial Comments: 40-year-old female with history of IBS presenting for "IBS flare. Patient states that she is diffuse abdominal pain she states is not localized and is consistent with her coronary IBS flares". She denies Crohn's or ulcerative colitis she denies dark stools bloody stools she states she has had some nausea and vomiting for the past 2 days. Patient states that she threw up her bentyl, and zofran prior to coming to the ER. Patient states that she does not feel this is different from her usual pain, denies fevers, chest pain, dyspnea, epigastric pain, or additional complaints. Pt denies recent travel, known food borne illness exposure or sick contacts. - Related Data Home Medications Medication Instructions Recorded Confirmed HYDROcodone/APAP 10-325MG [[place] 1 tab PO QID PRN 04/03/17 09/29/20 10-325] Loratadine [Claritin] 10 mg PO DAILY 04/03/17 09/29/20 Ergocalciferol [Vitamin D2 50,000 unit PO MO 02/13/20 09/29/20 (DRISDOL)] Dicyclomine [Bentyl] 20 mg PO TID PRN 06/11/20 09/29/20 Pantoprazole Sodium [Protonix] 40 mg PO BID 06/11/20 09/29/20 FLUoxetine HCL [PROzac] 20 mg PO DAILY 09/28/20 09/29/20 ALPRAZolam [Xanax] 0.25 mg PO DAILY PRN 09/29/20 09/29/20 Rimegepant Sulfate [Nurtec Odt] 75 mg PO Q48H PRN 09/29/20 09/29/20 Previous Rx's Medication Instructions Recorded Ondansetron HCl [Zofran] 4 mg PO Q8H PRN 5 Days #15 tab 06/13/20 Allergies Allergy/AdvReac Type Severity Reaction Status Date / Time propoxyphene Allergy Rash/Hives Verified 09/29/20 10:06 [From Sissy] Review of Systems ROS Statement: Those systems with pertinent positive or pertinent negative responses have been documented in the HPI. ROS Other: All systems not noted in ROS Statement are negative. Past Medical History Past Medical History: Fibromyalgia, Thyroid Disorder Additional Past Medical History / Comment(s): DDD , BULDGING DISCS, NEUROPATHY LEGS.,THYROID NODULES, HX ANEMIA, ENVIRONMENTAL ALLERGIES, CONSTIPATION & DIARRHEA, STATES VOMITING AND STOMACH PAIN FOR SEVERAL MONTHS.IBS, chronic gasteritis History of Any Multi-Drug Resistant Organisms: None Reported Past Surgical History: Hysterectomy, Orthopedic Surgery Additional Past Surgical History / Comment(s): rt wrist/forearm ,D&C, MASS ON VOCAL CORD SURGERY, AND BX. Past Anesthesia/Blood Transfusion Reactions: Postoperative Nausea & Vomiting (PONV) Additional Past Anesthesia/Blood Transfusion Reaction / Comment(s): CONSTIPATION POST-OP Past Psychological History: Anxiety Smoking Status: Former smoker Past Alcohol Use History: None Reported Past Drug Use History: Marijuana - Past Family History Mother Family Medical History: No Reported History Father Additional Family Medical History / Comment(s): cardiovascular swelling General Exam - General Exam Comments Initial Comments: General: The patient is awake and alert, in no distress Eye: +3 mm pupils are equal, round and reactive to light, extra-ocular movements are intact. No nystagmus. There is normal conjunctiva bilaterally. No signs of icterus. Ears, nose, mouth and throat: There are moist mucous membranes and no oral lesions. Neck: The neck is supple, there is no tenderness or JVD. Cardiovascular: There is a regular rate and rhythm. No murmur, rub or gallop is appreciated. Respiratory: Lungs are clear to auscultation, respirations are non-labored, breath sounds are equal. No wheezes, stridor, rales, or rhonchi. Gastrointestinal: Soft, non-distended, diffuse, mild appearing abdominal tendernss to palpation, abdomen without masses or organomegaly noted. There is no rebound or guarding present. Musculoskeletal: Normal ROM, no tenderness. Strength 5/5. Sensation intact. Radial pulses equal bilaterally 2+. Neurological: A&O x 3. CN II-XII intact grossly, There are no obvious motor or sensory deficits. Coordination appears grossly intact. Speech is normal. Skin: Skin is warm and dry and no rashes or lesions are noted. Psychiatric: Cooperative, appropriate mood & affect, normal judgment. Limitations: no limitations Course Vital Signs 09/28/20 09/28/2021 12:24 15:15 15:22 Temperature 98.4 F Pulse Rate 73 73 Respiratory 22 18 Rate Blood Pressure 161/78 94/64 103/56 O2 Sat by Pulse 96 96 Oximetry Medical Decision Making - Medical Decision Making Initially patient stated that this feels like her ears typical IBS flare however patient did have leukocytosis at 19 with lactic acid 2.4 which was felt to be more so reactive/dehydration. However I discussed the patient we cannot rule out infection patient states that she would like CT to make sure nothing is wrong. CT abdomen and pelvis no acute process. Patient has a history of chronic abdominal pain as well as chronic vomiting. Patient OF vomiting in the ER. Patient was hydrated. Patient's lips do not appear dry she is normal skin turgor. At this time after discussing the case with attending provider Stef Thapa who reviewed labs he is agreeable to discharge with GI/PCP f/u Patient agreeable. - Lab Data Result diagrams: 09/28/20 12:53 09/28/20 12:53 Lab Results 09/28/20 09/28/20 09/28/20 Range/Units 12:53 12:53 12:53 WBC 19.1 H (3.8-10.6) k/uL RBC 5.19 (3.80-5.40) m/uL Hgb 15.9 (11.4-16.0) gm/dL Hct 45.9 (34.0-46.0) % MCV 88.5 (80.0-100.0) fL MCH 30.7 (25.0-35.0) pg MCHC 34.7 (31.0-37.0) g/dL RDW 14.1 (11.5-15.5) % Plt Count 316 (150-450) k/uL MPV 7.5 Neutrophils % 87 % Lymphocytes % 8 % Monocytes % 3 % Eosinophils % 1 % Basophils % 1 % Neutrophils # 16.6 H (1.3-7.7) k/uL Lymphocytes # 1.5 (1.0-4.8) k/uL Monocytes # 0.6 (0-1.0) k/uL Eosinophils # 0.2 (0-0.7) k/uL Basophils # 0.1 (0-0.2) k/uL Sodium 143 (137-145) mmol/L Potassium 3.6 (3.5-5.1) mmol/L Chloride 100 (98-107) mmol/L Carbon Dioxide 23 (22-30) mmol/L Anion Gap 20 mmol/L BUN 21 H (7-17) mg/dL Creatinine 0.90 (0.52-1.04) mg/dL Est GFR (CKD-EPI)AfAm >90 (>60 ml/min/1.73 sqM) Est GFR (CKD-EPI)NonAf 80 (>60 ml/min/1.73 sqM) Glucose 133 H (74-99) mg/dL Lactic Ac Sepsis Rflx Plasma Lactic Acid Zaid (0.7-2.0) mmol/L Calcium 11.2 H (8.4-10.2) mg/dL Total Bilirubin 0.7 (0.2-1.3) mg/dL AST 32 (14-36) U/L ALT 84 H (4-34) U/L Alkaline Phosphatase 155 H (38-126) U/L Total Protein 9.9 H (6.3-8.2) g/dL Albumin 5.7 H (3.5-5.0) g/dL Lipase 43 (23-300) U/L Urine Color Yellow Urine Appearance Turbid H (Clear) Urine pH 6.0 (5.0-8.0) Ur Specific [place] 1.029 (1.001-1.035) Urine Protein 3+ H (Negative) Urine Glucose (UA) Negative (Negative) Urine Ketones 3+ H (Negative) Urine Blood Small H (Negative) Urine Nitrite Negative (Negative) Urine Bilirubin 1+ H (Negative) Urine Urobilinogen 2.0 (<2.0) mg/dL Ur Leukocyte Esterase Small H (Negative) Urine RBC 3 (0-5) /hpf Urine WBC 21 H (0-5) /hpf Ur Squamous Epith Cells 31 H (0-4) /hpf Amorphous Sediment Rare H (None) /hpf Urine Bacteria Many H (None) /hpf Urine Mucus Many H (None) /hpf 09/28/20 09/28/20 Range/Units 12:53 13:39 WBC (3.8-10.6) k/uL RBC (3.80-5.40) m/uL Hgb (11.4-16.0) gm/dL Hct (34.0-46.0) % MCV (80.0-100.0) fL MCH (25.0-35.0) pg MCHC (31.0-37.0) g/dL RDW (11.5-15.5) % Plt Count (150-450) k/uL MPV Neutrophils % % Lymphocytes % % Monocytes % % Eosinophils % % Basophils % % Neutrophils # (1.3-7.7) k/uL Lymphocytes # (1.0-4.8) k/uL Monocytes # (0-1.0) k/uL Eosinophils # (0-0.7) k/uL Basophils # (0-0.2) k/uL Sodium (137-145) mmol/L Potassium (3.5-5.1) mmol/L Chloride (98-107) mmol/L Carbon Dioxide (22-30) mmol/L Anion Gap mmol/L BUN (7-17) mg/dL Creatinine (0.52-1.04) mg/dL Est GFR (CKD-EPI)AfAm (>60 ml/min/1.73 sqM) Est GFR (CKD-EPI)NonAf (>60 ml/min/1.73 sqM) Glucose (74-99) mg/dL Lactic Ac Sepsis Rflx Y Plasma Lactic Acid Zaid 2.4 H* (0.7-2.0) mmol/L Calcium (8.4-10.2) mg/dL Total Bilirubin (0.2-1.3) mg/dL AST (14-36) U/L ALT (4-34) U/L Alkaline Phosphatase (38-126) U/L Total Protein (6.3-8.2) g/dL Albumin (3.5-5.0) g/dL Lipase (23-300) U/L Urine Color Urine Appearance (Clear) Urine pH (5.0-8.0) Ur Specific [place] (1.001-1.035) Urine Protein (Negative) Urine Glucose (UA) (Negative) Urine Ketones (Negative) Urine Blood (Negative) Urine Nitrite (Negative) Urine Bilirubin (Negative) Urine Urobilinogen (<2.0) mg/dL Ur Leukocyte Esterase (Negative) Urine RBC (0-5) /hpf Urine WBC (0-5) /hpf Ur Squamous Epith Cells (0-4) /hpf Amorphous Sediment (None) /hpf Urine Bacteria (None) /hpf Urine Mucus (None) /hpf Disposition Clinical Impression: Abdominal pain, Nausea & vomiting, Dehydration, Starvation ketoacidosis Disposition: HOME SELF-CARE Condition: Good Instructions (If sedation given, give patient instructions): Abdominal Pain (ED) Additional Instructions: Please use medication as discussed. Please follow-up with family doctor in the next 2 days. Please return to emergency room if the symptoms increase or worsen or for any other concerns. Is patient prescribed a controlled substance at d/c from ED?: No Referrals: Digna Alonso MD [Primary Care Provider] - 1-2 days Time of Disposition: 14:26
[2020-09-28 15:18] VITALS: RESP 18
[2020-09-28 15:22] VITALS: BP 103/56
== END 2020-09-28 15:59 | disposition home or self-care (01) ==
LOC: EC 12:10
DX: R10.9 Unspecified abdominal pain (principal); R11.2 Nausea with vomiting, unspecified; E86.0 Dehydration; E87.2 Acidosis; D72.829 Elevated white blood cell count, unspecified; K58.9 Irritable bowel syndrome, unspecified; M79.7 Fibromyalgia; F41.9 Anxiety disorder, unspecified; Z79.899 Other long term (current) drug therapy; Z88.5 Allergy status to narcotic agent; Z90.710 Acquired absence of both cervix and uterus; Z87.891 Personal history of nicotine dependence
CPT/HCPCS: 36415; 80053; 83605; 83690; 85025; 81001; 74177; 99284; 96374; 96375 ×4; 96361 ×3; 96372; J0500; J2765; J2405; J2270; C9113; J1170; Q9967

== ENCOUNTER 2020-09-29 08:59 | Emergency (ER) | payer MEDICARE, OTHER ==
[2020-09-29 09:10] VITALS: RESP 16; TEMP 97.8
[2020-09-29] MEDS ORDERED: DICYCLOMINE 10 MG/ML 2 ML AMP IM STA (09:28)
[2020-09-29] MEDS ORDERED: LORazepam 2 MG/ML INJ IV STA (09:28)
[2020-09-29] MEDS ORDERED: SODIUM CHLORIDE 0.9% 1,000 ML IV STA (09:28)
[2020-09-29] MEDS ORDERED: ONDANSETRON 4 MG/2 ML VIAL IVP STA (09:28)
--- NOTE | 2020-09-29 09:36 | ED ---
General Adult HPI - General Chief complaint: Nausea/Vomiting/Diarrhea Stated complaint: revisit- IBS flare, head pain Time Seen by Provider: 09/29/20 09:15 Source: patient, RN notes reviewed Mode of arrival: wheelchair Limitations: no limitations - History of Present Illness Initial comments: Patient's a 40-year-old female presented to the emergency room today with a chief complaint of nausea, vomiting, diarrhea. Patient does admit to a history of IBS and states feels like her IBS flare up. Patient does admit that she was seen here yesterday. She was given medication was feeling well was discharged home. She states last night symptoms all increased once again. She had increased multiple episodes of nausea and vomiting. Also diarrhea. Patient does admit to abdominal pain and discomfort in the epigastric and also lower abdomen. Patient states consistent with IBS that she's had in the past. She denies any other complaints or symptoms at this time. Patient denies any recent fever, chills, shortness of breath, chest pain, back pain, numbness or tingling, dysuria or hematuria, constipation, headaches or visual changes, or any other c omplaints. - Related Data Home Medications Medication Instructions Recorded Confirmed HYDROcodone/APAP 10-325MG [[place] 1 tab PO QID PRN 04/03/17 09/29/20 10-325] Loratadine [Claritin] 10 mg PO DAILY 04/03/17 09/29/20 Ergocalciferol [Vitamin D2 50,000 unit PO MO 02/13/20 09/29/20 (DRISDOL)] Dicyclomine [Bentyl] 20 mg PO TID PRN 06/11/20 09/29/20 Pantoprazole Sodium [Protonix] 40 mg PO BID 06/11/20 09/29/20 FLUoxetine HCL [PROzac] 20 mg PO DAILY 09/28/20 09/29/20 ALPRAZolam [Xanax] 0.25 mg PO DAILY PRN 09/29/20 09/29/20 Rimegepant Sulfate [Nurtec Odt] 75 mg PO Q48H PRN 09/29/20 09/29/20 Previous Rx's Medication Instructions Recorded Ondansetron HCl [Zofran] 4 mg PO Q8H PRN 5 Days #15 tab 06/13/20 Allergies Allergy/AdvReac Type Severity Reaction Status Date / Time propoxyphene Allergy Rash/Hives Verified 09/29/20 10:06 [From Sissy] Review of Systems ROS Statement: Those systems with pertinent positive or pertinent negative responses have been documented in the HPI. ROS Other: All systems not noted in ROS Statement are negative. Past Medical History Past Medical History: Fibromyalgia, Thyroid Disorder Additional Past Medical History / Comment(s): DDD , BULDGING DISCS, NEUROPATHY LEGS.,THYROID NODULES, HX ANEMIA, ENVIRONMENTAL ALLERGIES, CONSTIPATION & DIARRHEA, STATES VOMITING AND STOMACH PAIN FOR SEVERAL MONTHS.IBS, chronic gasteritis History of Any Multi-Drug Resistant Organisms: None Reported Past Surgical History: Hysterectomy, Orthopedic Surgery Additional Past Surgical History / Comment(s): rt wrist/forearm ,D&C, MASS ON V OCAL CORD SURGERY, AND BX. Past Anesthesia/Blood Transfusion Reactions: Postoperative Nausea & Vomiting (PONV) Additional Past Anesthesia/Blood Transfusion Reaction / Comment(s): CONSTIPATION POST-OP Past Psychological History: Anxiety Smoking Status: Former smoker Past Alcohol Use History: None Reported Past Drug Use History: Marijuana - Past Family History Mother Family Medical History: No Reported History Father Additional Family Medical History / Comment(s): cardiovascular swelling General Exam - General Exam Comments Initial Comments: General: The patient is awake and alert, in no distress, and does not appear acutely ill. Eye: extra-ocular movements are intact. There is normal conjunctiva bilaterally. No signs of icterus. Ears, nose, mouth and throat: There are moist mucous membranes and no oral lesions. Neck: The neck is supple, there is no tenderness or JVD. Cardiovascular: There is a regular rate and rhythm. No murmur, rub or gallop is appreciated. Respiratory: Lungs are clear to auscultation, respirations are non-labored, breath sounds are equal. No wheezes, stridor, rales, or rhonchi. Gastrointestinal: Admits soft on palpation. Does have mild tenderness epigastric area and periumbilical. No rebound, guarding or CVA tenderness. Musculoskeletal: Normal ROM, no tenderness. Strength 5/5. Sensation intact. Neurological: A&O x 3. CN II-XII intact, There are no obvious motor or sensory deficits. Coordination appears grossly intact. Speech is normal. Skin: Skin is warm and dry and no rashes or lesions are noted. Psychiatric: Cooperative, appropriate mood & affect, normal judgment. Limitations: no limitations Course Vital Signs 09/29/20 09/29/20 09/29/20 09:08 10:52 11:33 Temperature 97.8 F Pulse Rate 72 81 84 Respiratory 16 16 16 Rate Blood Pressure 189/104 180/105 180/104 O2 Sat by Pulse 100 99 100 Oximetry EKG Findings - EKG Comments: EKG Findings:: EKG performed: 917. Normal sinus rhythm at 67 bpm. CA interval 118. QRS 82. QT/QTc 436/460. No acute ST changes. Medical Decision Making - Medical Decision Making Patient reexamined at this time she is resting comfortable. Patient does admit to feeling better here in emergency room. Her labs were reviewed from yesterday and does show improvement. Potassium is 3.2. Patient given dose potassium here in the emergency room. Patient's feeling well at this time and feels couple being discharged home. Patient states she has medications at home that she can use. She is advised return to emergency room if any symptoms increase or worsen or for any other concerns. She states understanding and is agreement with this plan. - Lab Data Result diagrams: 09/29/20 09:27 09/29/20 10:10 Lab Results 09/29/20 09/29/20 09/29/20 Range/Units 09:27 10:10 11:34 WBC 10.5 (3.8-10.6) k/uL RBC 5.07 (3.80-5.40) m/uL Hgb 15.1 (11.4-16.0) gm/dL Hct 46.3 H (34.0-46.0) % MCV 91.4 (80.0-100.0) fL MCH 29.7 (25.0-35.0) pg MCHC 32.5 (31.0-37.0) g/dL RDW 15.3 (11.5-15.5) % Plt Count 251 (150-450) k/uL MPV 7.7 Neutrophils % 73 % Lymphocytes % 20 % Monocytes % 4 % Eosinophils % 1 % Basophils % 1 % Neutrophils # 7.7 (1.3-7.7) k/uL Lymphocytes # 2.1 (1.0-4.8) k/uL Monocytes # 0.4 (0-1.0) k/uL Eosinophils # 0.1 (0-0.7) k/uL Basophils # 0.1 (0-0.2) k/uL Hypochromasia Slight Poikilocytosis Slight Sodium 140 (137-145) mmol/L Potassium 3.2 L (3.5-5.1) mmol/L Chloride 103 (98-107) mmol/L Carbon Dioxide 23 (22-30) mmol/L Anion Gap 14 mmol/L BUN 17 (7-17) mg/dL Creatinine 0.80 (0.52-1.04) mg/dL Est GFR (CKD-EPI)AfAm >90 (>60 ml/min/1.73 sqM) Est GFR (CKD-EPI)NonAf >90 (>60 ml/min/1.73 sqM) Glucose 123 H (74-99) mg/dL Calcium 10.4 H (8.4-10.2) mg/dL Total Bilirubin 0.8 (0.2-1.3) mg/dL AST 35 (14-36) U/L ALT 65 H (4-34) U/L Alkaline Phosphatase 130 H (38-126) U/L Total Protein 8.6 H (6.3-8.2) g/dL Albumin 5.2 H (3.5-5.0) g/dL Amylase 65 (30-110) U/L Lipase 76 (23-300) U/L Urine Color Colorless Urine Appearance Clear (Clear) Urine pH 7.0 (5.0-8.0) Ur Specific [place] 1.009 (1.001-1.035) Urine Protein Negative (Negative) Urine Glucose (UA) Negative (Negative) Urine Ketones 1+ H (Negative) Urine Blood Negative (Negative) Urine Nitrite Negative (Negative) Urine Bilirubin Negative (Negative) Urine Urobilinogen <2.0 (<2.0) mg/dL Ur Leukocyte Esterase Negative (Negative) Urine HCG, Qual (Not Detectd) 09/29/20 Range/Units 11:34 WBC (3.8-10.6) k/uL RBC (3.80-5.40) m/uL Hgb (11.4-16.0) gm/dL Hct (34.0-46.0) % MCV (80.0-100.0) fL MCH (25.0-35.0) pg MCHC (31.0-37.0) g/dL RDW (11.5-15.5) % Plt Count (150-450) k/uL MPV Neutrophils % % Lymphocytes % % Monocytes % % Eosinophils % % Basophils % % Neutrophils # (1.3-7.7) k/uL Lymphocytes # (1.0-4.8) k/uL Monocytes # (0-1.0) k/uL Eosinophils # (0-0.7) k/uL Basophils # (0-0.2) k/uL Hypochromasia Poikilocytosis Sodium (137-145) mmol/L Potassium (3.5-5.1) mmol/L Chloride (98-107) mmol/L Carbon Dioxide (22-30) mmol/L Anion Gap mmol/L BUN (7-17) mg/dL Creatinine (0.52-1.04) mg/dL Est GFR (CKD-EPI)AfAm (>60 ml/min/1.73 sqM) Est GFR (CKD-EPI)NonAf (>60 ml/min/1.73 sqM) Glucose (74-99) mg/dL Calcium (8.4-10.2) mg/dL Total Bilirubin (0.2-1.3) mg/dL AST (14-36) U/L ALT (4-34) U/L Alkaline Phosphatase (38-126) U/L Total Protein (6.3-8.2) g/dL Albumin (3.5-5.0) g/dL Amylase (30-110) U/L Lipase (23-300) U/L Urine Color Urine Appearance (Clear) Urine pH (5.0-8.0) Ur Specific [place] (1.001-1.035) Urine Protein (Negative) Urine Glucose (UA) (Negative) Urine Ketones (Negative) Urine Blood (Negative) Urine Nitrite (Negative) Urine Bilirubin (Negative) Urine Urobilinogen (<2.0) mg/dL Ur Leukocyte Esterase (Negative) Urine HCG, Qual Not Detected (Not Detectd) Disposition Clinical Impression: Nausea vomiting and diarrhea, Abdominal pain, History of IBS Disposition: HOME SELF-CARE Condition: Good Instructions (If sedation given, give patient instructions): Acute Nausea and Vomiting (ED) Additional Instructions: Please follow-up with family doctor in the next 2 days of symptoms have not improved. Please return to emergency room if the symptoms increase or worsen or for any other concerns. Is patient prescribed a controlled substance at d/c from ED?: No Referrals: Digna Alonso MD [Primary Care Provider] - 1-2 days Time of Disposition: 12:15
[2020-09-29 09:59] LABS: Basophils # (A) 0.1 k/uL (0-0.2); Basophils % (A) 1 %; Eosinophils # (A) 0.1 k/uL (0-0.7); Eosinophils % (A) 1 %; HCT 46.3 % (34.0-46.0); HGB 15.1 gm/dL (11.4-16.0); Hypochromasia Slight; Lymphocytes # (A) 2.1 k/uL (1.0-4.8); Lymphocytes % (A) 20 %; MCH 29.7 pg (25.0-35.0); MCHC 32.5 g/dL (31.0-37.0); MCV 91.4 fL (80.0-100.0); Mean Platelet Volume 7.7; Monocytes # (A) 0.4 k/uL (0-1.0); Monocytes % (A) 4 %; Neutrophils # (A) 7.7 k/uL (1.3-7.7); Neutrophils % (A) 73 %; Platelet Count 251 k/uL (150-450); Poikilocytosis Slight; RBC 5.07 m/uL (3.80-5.40); RDW 15.3 % (11.5-15.5); WBC 10.5 k/uL (3.8-10.6)
[2020-09-29 10:09] LABS: ALT 65 U/L (4-34); AST 35 U/L (14-36); African American GFR (CKD) >90 (>60 ml/min/1.73 sqM); Albumin 5.2 g/dL (3.5-5.0); Alkaline Phosphatase 130 U/L (38-126); Amylase 65 U/L (30-110); Anion Gap 14 mmol/L; Blood Urea Nitrogen 17 mg/dL (7-17); Calcium 10.4 mg/dL (8.4-10.2); Carbon Dioxide 23 mmol/L (22-30); Chloride 103 mmol/L (98-107); Glucose 123 mg/dL (74-99); Lipase 76 U/L (23-300); Non-African American GFR(CKD) >90 (>60 ml/min/1.73 sqM); Potassium 3.2 mmol/L (3.5-5.1); Sodium 140 mmol/L (137-145); Total Bilirubin 0.8 mg/dL (0.2-1.3); Total Protein 8.6 g/dL (6.3-8.2)
[2020-09-29] MEDS ORDERED: SODIUM CHLORIDE 0.9% 500 ML IV STA (11:52)
[2020-09-29] MEDS ORDERED: METOCLOPRAMIDE 5 MG/ML 2 ML VIAL IVP STA (11:52)
[2020-09-29 12:20] LABS: Appearance,Urine Clear (Clear); Bilirubin,Urine Negative (Negative); Blood,Urine Negative (Negative); Color,Urine Colorless; Glucose,Urine (UA) Negative (Negative); Ketones,Urine 1+ (Negative); Leukocyte Esterase,Urine Negative (Negative); Nitrite,Urine Negative (Negative); Protein,Urine Negative (Negative); Specific Gravity,Urine 1.009 (1.001-1.035); Urobilinogen,Urine <2.0 mg/dL (<2.0)
[2020-09-29 12:53] VITALS: BP 165/97; PULSE 67
== END 2020-09-29 12:52 | disposition home or self-care (01) ==
LOC: EC 08:59
DX: R10.9 Unspecified abdominal pain (principal); R11.2 Nausea with vomiting, unspecified; K58.0 Irritable bowel syndrome with diarrhea; M79.7 Fibromyalgia; F41.9 Anxiety disorder, unspecified; Z79.899 Other long term (current) drug therapy; Z88.5 Allergy status to narcotic agent; Z87.891 Personal history of nicotine dependence
CPT/HCPCS: 36415; 93005; 80053; 82150; 83690; 85025; 81003; 81025; 99284; 96374; 96375 ×2; 96361 ×2; 96372; J2060; J0500; J2765; J2405

== ENCOUNTER 2020-09-30 20:50 | Observation (INO) | payer MEDICARE, OTHER ==
[2020-09-30] MEDS ORDERED: ONDANSETRON 4 MG/2 ML VIAL IVP STA (21:17)
[2020-09-30] MEDS ORDERED: SODIUM CHLORIDE 0.9% 1,000 ML IV STA (21:17)
[2020-09-30] MEDS ORDERED: FAMOTIDINE 20 MG/2 ML VIAL IV STA (21:17)
--- NOTE | 2020-09-30 21:20 | ED ---
General Adult HPI - General Chief complaint: Nausea/Vomiting/Diarrhea Stated complaint: vomiting Time Seen by Provider: 09/30/20 21:12 Source: patient, family, RN notes reviewed Mode of arrival: ambulatory Limitations: no limitations - History of Present Illness Initial comments: Patient is a pleasant 40-year-old female presenting to the emergency department for nausea vomiting. Patient has history of irritable bowel syndrome and does get this every several weeks. Especially the past year has been rough. Patient has some discomfort of her upper abdomen. Patient has had multiple episodes of nausea vomiting. No constipation or diarrhea. No fever. Patient did talk to Dr. lizbeth muniz who recommended she come back to the emergency department and there was apparently some report of a bacterial infection. - Related Data Home Medications Medication Instructions Recorded Confirmed HYDROcodone/APAP 10-325MG [[place] 1 tab PO QID PRN 04/03/17 09/29/20 10-325] Loratadine [Claritin] 10 mg PO DAILY 04/03/17 09/29/20 Ergocalciferol [Vitamin D2 50,000 unit PO MO 02/13/20 09/29/20 (DRISDOL)] Dicyclomine [Bentyl] 20 mg PO TID PRN 06/11/20 09/29/20 Pantoprazole Sodium [Protonix] 40 mg PO BID 06/11/20 09/29/20 FLUoxetine HCL [PROzac] 20 mg PO DAILY 09/28/20 09/29/20 ALPRAZolam [Xanax] 0.25 mg PO DAILY PRN 09/29/20 09/29/20 Rimegepant Sulfate [Nurtec Odt] 75 mg PO Q48H PRN 09/29/20 09/29/20 Previous Rx's Medication Instructions Recorded Ondansetron HCl [Zofran] 4 mg PO Q8H PRN 5 Days #15 tab 06/13/20 Allergies Allergy/AdvReac Type Severity Reaction Status Date / Time propoxyphene Allergy Rash/Hives Verified 09/30/20 21:03 [From Sissy] Review of Systems ROS Statement: Those systems with pertinent positive or pertinent negative responses have been documented in the HPI. ROS Other: All systems not noted in ROS Statement are negative. Constitutional: Denies: fever Eyes: Denies: eye pain ENT: Denies: ear pain Respiratory: Denies: cough Cardiovascular: Denies: chest pain Endocrine: Denies: fatigue Gastrointestinal: Reports: as per HPI, nausea, vomiting Genitourinary: Denies: dysuria Musculoskeletal: Denies: back pain Skin: Denies: rash Neurological: Denies: weakness Past Medical History Past Medical History: Fibromyalgia, Thyroid Disorder Additional Past Medical History / Comment(s): DDD , BULDGING DISCS, NEUROPATHY LEGS.,THYROID NODULES, HX ANEMIA, ENVIRONMENTAL ALLERGIES, CONSTIPATION & DIARRHEA, STATES VOMITING AND STOMACH PAIN FOR SEVERAL MONTHS.IBS, chronic gasteritis History of Any Multi-Drug Resistant Organisms: None Reported Past Surgical History: Hysterectomy, Orthopedic Surgery Additional Past Surgical History / Comment(s): rt wrist/forearm ,D&C, MASS ON VOCAL CORD SURGERY, AND BX. Past Anesthesia/Blood Transfusion Reactions: Postoperative Nausea & Vomiting (PONV) Additional Past Anesthesia/Blood Transfusion Reaction / Comment(s): CONSTIPATION POST-OP Past Psychological History: Anxiety Smoking Status: Former smoker Past Alcohol Use History: None Reported Past Drug Use History: Marijuana - Past Family History Mother Family Medical History: No Reported History Father Additional Family Medical History / Comment(s): cardiovascular swelling General Exam Limitations: no limitations General appearance: alert, in no apparent distress Head exam: Present: normocephalic Eye exam: Present: normal appearance ENT exam: Present: normal oropharynx Neck exam: Present: normal inspection Respiratory exam: Present: normal lung sounds bilaterally Cardiovascular Exam: Present: regular rate, normal rhythm Expanded Peripheral pulses: 2+: Posterior Tibialis (R), Posterior Tibialis (L) GI/Abdominal exam: Present: soft. Absent: distended, tenderness, pulsatile mass Extremities exam: Present: normal inspection Neurological exam: Present: alert Psychiatric exam: Present: normal affect, normal mood Skin exam: Present: normal color Course Vital Signs 09/30/20 20:59 Temperature 99.1 F Pulse Rate 92 Respiratory 18 Rate Blood Pressure 141/102 O2 Sat by Pulse 98 Oximetry Medical Decision Making - Medical Decision Making Patient reevaluated and still with similar symptoms. Patient updated on results and plan. Case was discussed with Dr. Menjivar, who will admit covering for Dr. aviles. Dr. nieves is not on-call at this time however gastrology will be on consult - Lab Data Result diagrams: 09/30/20 21:21 09/30/20 21:21 Lab Results 09/30/20 09/30/20 09/30/20 Range/Units 21:21 21:21 21:21 WBC 12.4 H (3.8-10.6) k/uL RBC 5.28 (3.80-5.40) m/uL Hgb 16.4 H (11.4-16.0) gm/dL Hct 46.0 (34.0-46.0) % MCV 87.1 (80.0-100.0) fL MCH 31.1 (25.0-35.0) pg MCHC 35.8 (31.0-37.0) g/dL RDW 12.9 (11.5-15.5) % Plt Count 294 (150-450) k/uL MPV 7.1 Neutrophils % 71 % Lymphocytes % 22 % Monocytes % 5 % Eosinophils % 1 % Basophils % 1 % Neutrophils # 8.8 H (1.3-7.7) k/uL Lymphocytes # 2.7 (1.0-4.8) k/uL Monocytes # 0.6 (0-1.0) k/uL Eosinophils # 0.1 (0-0.7) k/uL Basophils # 0.1 (0-0.2) k/uL Sodium 138 (137-145) mmol/L Potassium 3.5 (3.5-5.1) mmol/L Chloride 99 (98-107) mmol/L Carbon Dioxide 26 (22-30) mmol/L Anion Gap 13 mmol/L BUN 16 (7-17) mg/dL Creatinine 0.77 (0.52-1.04) mg/dL Est GFR (CKD-EPI)AfAm >90 (>60 ml/min/1.73 sqM) Est GFR (CKD-EPI)NonAf >90 (>60 ml/min/1.73 sqM) Glucose 111 H (74-99) mg/dL Calcium 10.0 (8.4-10.2) mg/dL Total Bilirubin 0.8 (0.2-1.3) mg/dL AST 29 (14-36) U/L ALT 46 H (4-34) U/L Alkaline Phosphatase 119 (38-126) U/L Total Protein 8.5 H (6.3-8.2) g/dL Albumin 5.2 H (3.5-5.0) g/dL Amylase 66 (30-110) U/L Lipase 95 (23-300) U/L Urine Color Yellow Urine Appearance Clear (Clear) Urine pH 6.5 (5.0-8.0) Ur Specific [place] 1.020 (1.001-1.035) Urine Protein 1+ H (Negative) Urine Glucose (UA) Negative (Negative) Urine Ketones 3+ H (Negative) Urine Blood Negative (Negative) Urine Nitrite Negative (Negative) Urine Bilirubin 1+ H (Negative) Urine Urobilinogen <2.0 (<2.0) mg/dL Ur Leukocyte Esterase Negative (Negative) Urine RBC 4 (0-5) /hpf Urine WBC 4 (0-5) /hpf Ur Squamous Epith Cells 1 (0-4) /hpf Urine Bacteria Rare H (None) /hpf Urine Mucus Moderate H (None) /hpf Disposition Clinical Impression: Intractable vomiting with nausea Disposition: ADMITTED IP TO THIS HOSP Is patient prescribed a controlled substance at d/c from ED?: No Referrals: Digna Alonso MD [Primary Care Provider] - 1-2 days Decision Time: 22:32
[2020-09-30 21:30] LABS: Basophils # (A) 0.1 k/uL (0-0.2); Basophils % (A) 1 %; Eosinophils # (A) 0.1 k/uL (0-0.7); Eosinophils % (A) 1 %; HGB 16.4 gm/dL (11.4-16.0); Lymphocytes # (A) 2.7 k/uL (1.0-4.8); Lymphocytes % (A) 22 %; MCH 31.1 pg (25.0-35.0); MCHC 35.8 g/dL (31.0-37.0); MCV 87.1 fL (80.0-100.0); Mean Platelet Volume 7.1; Monocytes # (A) 0.6 k/uL (0-1.0); Monocytes % (A) 5 %; Neutrophils # (A) 8.8 k/uL (1.3-7.7); Neutrophils % (A) 71 %; Platelet Count 294 k/uL (150-450); RBC 5.28 m/uL (3.80-5.40); RDW 12.9 % (11.5-15.5); WBC 12.4 k/uL (3.8-10.6)
[2020-09-30 21:43] LABS: ALT 46 U/L (4-34); AST 29 U/L (14-36); African American GFR (CKD) >90 (>60 ml/min/1.73 sqM); Albumin 5.2 g/dL (3.5-5.0); Alkaline Phosphatase 119 U/L (38-126); Amylase 66 U/L (30-110); Anion Gap 13 mmol/L; Appearance,Urine Clear (Clear); Bacteria,Urine Rare /hpf; Bilirubin,Urine 1+ (Negative); Blood Urea Nitrogen 16 mg/dL (7-17); Blood,Urine Negative (Negative); Carbon Dioxide 26 mmol/L (22-30); Chloride 99 mmol/L (98-107); Color,Urine Yellow; Glucose 111 mg/dL (74-99); Glucose,Urine (UA) Negative (Negative); Ketones,Urine 3+ (Negative); Leukocyte Esterase,Urine Negative (Negative); Lipase 95 U/L (23-300); Mucus,Urine Moderate /hpf; Nitrite,Urine Negative (Negative); Non-African American GFR(CKD) >90 (>60 ml/min/1.73 sqM); PH, Urine 6.5 (5.0-8.0); Potassium 3.5 mmol/L (3.5-5.1); Protein,Urine 1+ (Negative); RBC,Urine 4 /hpf (0-5); Sodium 138 mmol/L (137-145); Squamous Epithelial Cell,Urine 1 /hpf (0-4); Total Bilirubin 0.8 mg/dL (0.2-1.3); Total Protein 8.5 g/dL (6.3-8.2); Urobilinogen,Urine <2.0 mg/dL (<2.0); WBC,Urine 4 /hpf (0-5)
[2020-09-30] MEDS ORDERED: MORPHINE SULFATE 4 MG/ML SYRINGE IVP STA (22:32)
[2020-09-30] MEDS ORDERED: METOCLOPRAMIDE 5 MG/ML 2 ML VIAL IVP STA (22:32)
[2020-09-30] MEDS ORDERED: ONDANSETRON 4 MG/2 ML VIAL IVP PRN (22:33)
[2020-09-30] MEDS ORDERED: NALOXONE 0.4 MG/ML 1 ML VIAL IV PRN (22:33)
[2020-09-30] MEDS ORDERED: DICYCLOMINE 10 MG/ML 2 ML AMP IM STA (22:41)
[2020-09-30] MEDS: SODIUM CHLORIDE 0.9% 1,000 ML IV SCH (22:51)
[2020-09-30] MEDS: METOCLOPRAMIDE 5 MG/ML 2 ML VIAL IVP SCH (23:39)
[2020-10-01] MEDS ORDERED: MORPHINE SULFATE 4 MG/ML SYRINGE IVP PRN (00:31)
[2020-10-01] MEDS: METOCLOPRAMIDE 5 MG/ML 2 ML VIAL IVP SCH ×4 (05:37→20:08)
[2020-10-01] MEDS: SODIUM CHLORIDE 0.9% 1,000 ML IV SCH ×3 (05:42→20:08)
[2020-10-01] MEDS ORDERED: DICYCLOMINE 20 MG TAB PO PRN (08:18)
[2020-10-01] MEDS ORDERED: PANTOPRAZOLE 40 MG/10 ML VIAL IV SCH (09:00)
--- NOTE | 2020-10-01 09:57 | XR ---
EXAMINATION TYPE: XR chest 1V portable DATE OF EXAM: 10/01/2020 CLINICAL HISTORY: Difficulty breathing and CHF. TECHNIQUE: Single AP portable frontal view of the chest is obtained. COMPARISON: Chest x-ray from December 10, 2018. CTA chest December 09, 2018 FINDINGS: Mild chronic parenchymal changes without suspicious focal airspace opacity, pleural effusi on, or pneumothorax seen bilaterally. Cardiac silhouette size stable and within normal limits. Osseou s structures are intact. IMPRESSION: No acute cardiopulmonary process.
--- NOTE | 2020-10-01 10:56 | XR ---
EXAMINATION TYPE: XR abdomen 2V DATE OF EXAM: 10/01/2020 CLINICAL HISTORY: Abdominal pain and vomiting TECHNIQUE: Supine and upright views of the abdomen are obtained. COMPARISON: CT abdomen and pelvis 3 days ago. Abdominal x-ray July 22, 2020 FINDINGS: Scattered gas is seen in non-distended stomach and small bowel loops. Gas and fecal mater ial is seen in non-distended colon and rectum. There is no visceromegaly, pneumoperitoneum, or abno rmal calcification appreciated. The lung bases are clear and the osseous structures are intact. IMPRESSION: Overall nonobstructive bowel gas pattern remains present. No significant change from rec ent CT.
[2020-10-01] MEDS ORDERED: NON FORMULARY DRUG (Rimegepant Sulfate [Nurtec Odt] 75 MG Tab.Rapdis) PO PRN (12:54)
[2020-10-01] MEDS ORDERED: HYDROcodone/APAP 10-325MG 1 EACH TAB PO PRN (12:54)
[2020-10-01] MEDS ORDERED: ALPRAZolam 0.25 MG TAB PO PRN (12:54)
[2020-10-01] MEDS ORDERED: TEMAZEPAM 15 MG CAP PO PRN (12:55)
--- NOTE | 2020-10-01 14:00 | HP ---
HISTORY AND PHYSICAL DATE OF SERVICE: 10/01/2020. CHIEF COMPLAINT: Nausea, vomiting and diarrhea. HISTORY OF PRESENT ILLNESS: This 40-year-old woman with a past medical history of multiple medical problems including fibromyalgia, hypothyroidism, history of DJD, history of hysterectomy, history of anxiety being followed by Dr. Alonso in the outpatient setting had previous episodes of vomiting, nausea. Currently the patient is complaining of intractable nausea and vomiting for the last several days. The patient thought that it was a flare up of her irritable bowel syndrome. She had recurrent vomiting and the patient came to [facility] and was admitted for further evaluation and treatment. There is no history of any fever, rigors, chills at this time. The white count is elevated to 12.4. UA as noted. PAST MEDICAL HISTORY: History of fibromyalgia, hypothyroidism, history of cord injury, thyroid nodules, anxiety. MEDICATIONS: Medications prior to home medications are: 1. Nurtec. 2. Protonix. 3. Zofran. 4. Claritin. 5. [place]. 6. Prozac. 8. Bentyl. 9. Xanax. ALLERGIES: DARVOCET N. FAMILY HISTORY: History of cardiovascular disease. SOCIAL HISTORY: History of smoking. History of THC, patient uses at least twice a day. REVIEW OF SYSTEMS: ENT: No diminished hearing or diminished vision. CARDIOVASCULAR SYSTEM: No angina. RESPIRATORY SYSTEM: No cough. GI: As mentioned earlier. : No dysuria. NERVOUS SYSTEM: No numbness, weakness. ALLERGY/IMMUNOLOGY: No asthma, hayfever. MUSCULOSKELETAL: As mentioned earlier. HEMATOLOGY/ONCOLOGY: No history of anemia. ENDOCRINE: No history of diabetes or hypothyroidism. CONSTITUTIONAL: As mentioned earlier. DERMATOLOGY: Negative. RHEUMATOLOGY: Negative. PSYCHIATRY: As mentioned earlier. PHYSICAL EXAMINATION: The patient is alert and oriented x3. Pulse 77, blood pressure 137/87, respiration 18, temperature 99.3, pulse ox 98% on room air. HEENT: Conjunctivae normal. NECK: No jugular venous distention. CARDIOVASCULAR: S1, S2 muffled. RESPIRATORY: Breath sounds diminished at the bases. No rhonchi, no crackles. ABDOMEN: Soft, nontender. No guarding. No rigidity. No mass palpable. No ascites. Bowel sounds present. LEGS: No edema, no swelling. NERVOUS SYSTEM: Higher function mentioned earlier. Moves all 4 limbs. No focal motor or sensory deficits. LYMPHATICS: No lymphadenopathy of the neck, axillae or groin. SKIN: No ulcer, rash or bleeding. JOINTS: No active deforming arthropathy. LABS: WBC 12.4, hemoglobin 16.4, sodium 138, potassium 3.5 and albumin is 5.2. UA noted. ASSESSMENT: 1. Intractable nausea and vomiting, possible acute gastritis. 2. History of fibromyalgia. 3. Hypothyroidism. 4. History of peripheral neuropathy. 5. Thyroid nodules. 6. History of environmental allergies. 7. History of hysterectomy. 8. History of anxiety. 9. History of nicotine dependence. 10.FULL CODE. RECOMMENDATIONS AND DISCUSSION: This 40-year-old woman who presented with multiple complex medical issues, we will monitor the patient closely, continue the current medications, continue symptomatic treatment. The patient will continue IV fluids. Keep the patient n.p.o. except medications. Symptomatic treatment will be provided. The patient apparently had previous scopes. Gastroenterology will be consulted. COVID-19 has been requested. Prognosis guarded because of multiple complex medical issues. Further recommendations to follow. A copy of dictation forwarded to Dr. Alonso who is the primary physician. MMODL / IJN: [id number] / MTDD
[2020-10-01 15:16] LABS: Amphetamine Screen,Urine Not Detected (NotDetected); Barbiturate Screen,Urine Not Detected (NotDetected); Benzodiazepines Screen,Urine Detected (NotDetected); Cocaine Screen,Urine Not Detected (NotDetected); Methadone Screen, Urine Not Detected (NotDetected); Opiate Screen,Urine Detected (NotDetected); Oxycodone Screen, Urine Not Detected (NotDetected); Phencyclidine Screen,Urine Not Detected (NotDetected); Tricyclic Antidepressant,Urine Not Detected (NotDetected); Urn Cannabinoid Scrn Detected (NotDetected)
--- NOTE | 2020-10-01 18:01 | CONS ---
CONSULTATION DATE OF DICTATION: 10/01/2020 REASON FOR CONSULTATION: Intractable nausea, vomiting and diarrhea. HISTORY OF PRESENT ILLNESS: The patient is a 40-year-old pleasant white female admitted to the hospital with acute onset of severe diarrhea followed by intense nausea and vomiting that started about 3 days ago. The patient has been having these symptoms on and off for the last one year's duration. She has these episodes once every 4-5 weeks and they last for 3-4 days. She was seen by Dr. Rousseau on an outpatient basis and had an upper endoscopy as well as colonoscopy done in January of 2020 and was diagnosed with irritable bowel syndrome. She is maintained on Protonix 40 mg twice daily, Bentyl as needed as well as Zofran and is doing well. This morning she had 3 episodes of emesis, but this afternoon she is feeling much better. The abdominal pain has resolved. She has no further diarrhea episodes. On a clear liquid diet, tolerating well. No fever, chills, night sweats. PAST MEDICAL HISTORY: IBS, fibromyalgia, hypothyroidism, thyroid nodules and anxiety. MEDICATIONS AT HOME: Protonix, Zofran, Claritin, [place], Prozac, Bentyl and Xanax. ALLERGIES: DARVOCET. SOCIAL HISTORY: History of smoking. No alcohol use. FAMILY HISTORY: Mom has coronary artery disease. REVIEW OF SYSTEMS: CARDIOPULMONARY: No chest pain or shortness of breath. GENITOURINARY: No dysuria or hematuria. MUSCULOSKELETAL: Unremarkable. SKIN: Unremarkable. ENDOCRINE: Unremarkable. PSYCHIATRIC: Unremarkable except for anxiety. NEUROLOGY: Unremarkable. ENT/VISION: Unremarkable. CONSTITUTIONAL: No recent weight loss. No fever, chills, night sweats. PHYSICAL EXAMINATION: Blood pressure 108/69, pulse rate 63, temperature 98.1. HEENT examination unremarkable. Conjunctivae pink. Sclerae anicteric. Oral cavity no lesions. NECK: No JVD or lymph node enlargement. CHEST: Clear to auscultation. HEART: Regular rate and rhythm. ABDOMEN: Soft. Bowel sounds are positive. Non-tender, non-distended. EXTREMITIES: No pedal edema. SKIN: No rashes. NEUROLOGIC: Alert and oriented x3. No focal deficits. LABS: WBC 12.4, hemoglobin 16.4, platelets normal. Basic metabolic panel is within normal limits. BUN and creatinine are 16 and 0.78. AST and ALT are 46 and 119, respectively. Amylase and lipase are normal. Urinalysis: 3+ ketones. IMPRESSION: 1. Acute onset of nausea, vomiting and diarrhea that started 2 days ago. The patient's symptoms are gradually improving. She has been having these episodes on and off for the last one year's duration. She was seen by Dr. Rousseau on an outpatient basis and had an EGD and colonoscopy done in January of 2020 that showed some gastritis and esophagitis and she was subsequently diagnosed with IBS and is being treated with Protonix and Bentyl and was doing well. Currently she is doing much better with antiemetics as well as IV PPI. She is on a clear liquid diet, tolerating well. 2. History of fibromyalgia. 3. History of anxiety, depression. 4. History of hypothyroidism. RECOMMENDATIONS: 1. Continue with antiemetics and PPIs. 2. Advance diet as tolerated. 3. Repeat labs in the morning. 4. Continue Bentyl 20 mg 4 times daily as needed. 5. If her symptoms improve, she can be discharged home tomorrow with outpatient followup with Dr. Rousseau in 2 weeks. Thank you for this consultation. MMODL / IJN: [id number] /
[2020-10-01] MEDS: PANTOPRAZOLE 40 MG/10 ML VIAL IV SCH (20:07)
[2020-10-01] MEDS: HEPARIN SODIUM,PORCINE 5,000 UNIT/ML 1 ML VIAL SQ SCH (20:08)
[2020-10-01 20:09] LABS: African American GFR (CKD) 123.9 (60.0-200.0); Albumin 4.9 g/dL (3.80-4.90); Albumin/Globulin Ratio 2.45 (1.60-3.17); Anion Gap 12.1 mmol/L (4.00-12.00); BUN/Creat Ratio 15.71 Ratio (12.00-20.00); Carbon Dioxide 23.9 mmol/L (21.6-31.8); Non-African American GFR(CKD) 106.9 (60.0-200.0); Potassium 3.2 mmol/L (3.5-5.5); Total Bilirubin 0.6 mg/dL (0.3-1.2); Total Protein 6.9 g/dL (6.2-8.2)
[2020-10-02] MEDS: METOCLOPRAMIDE 5 MG/ML 2 ML VIAL IVP SCH (06:21)
[2020-10-02 08:05] VITALS: BP 121/81; PULSE 82; RESP 18; TEMP 97.8
[2020-10-02] MEDS: PANTOPRAZOLE 40 MG/10 ML VIAL IV SCH (08:14)
[2020-10-02] MEDS: HEPARIN SODIUM,PORCINE 5,000 UNIT/ML 1 ML VIAL SQ SCH (08:14)
[2020-10-02] MEDS ORDERED: LORATADINE 10 MG TAB PO SCH (09:00)
[2020-10-02] MEDS ORDERED: FLUoxetine HCL 20 MG CAP PO SCH (09:00)
[2020-10-02 10:21] LABS: Basophils # (A) 0.04 X 10*3/uL (0.00-0.10); Basophils % (A) 0.6 %; Eosinophils # (A) 0.12 X 10*3/uL (0.04-0.35); Eosinophils % (A) 1.7 %; HCT 36.2 % (37.2-46.3); HGB 12.3 g/dL (12.0-15.0); Lymphocytes # (A) 3.41 X 10*3/uL (0.90-5.00); Lymphocytes % (A) 47.6 %; MCH 30.4 pg (27.0-32.0); MCV 89.4 fL (80.0-97.0); Mean Platelet Volume 10.9 fL (9.5-12.2); Monocytes # (A) 0.45 X 10*3/uL (0.20-1.00); Monocytes % (A) 6.3 %; Neutrophils # (A) 3.12 X 10*3/uL (1.80-7.70); Neutrophils % (A) 43.5 %; Platelet Count 228 X 10*3/uL (140-440); RBC 4.05 X 10*6/uL (4.10-5.20); RDW 12.9 % (11.5-14.5); WBC 7.16 X 10*3/uL (4.50-10.00)
[2020-10-02] MEDS ORDERED: POTASSIUM CHLORIDE ER 20 MEQ TAB.ER PO STA (11:17)
[2020-10-02 11:43] LABS: Potassium 3.5 mmol/L (3.5-5.1)
--- NOTE | 2020-10-02 21:15 | DS ---
DISCHARGE SUMMARY DATE OF DISCHARGE: 10/02/2020 FINAL DIAGNOSIS: 1. Intractable nausea and vomiting, possible acute gastritis. 2. History of fibromyalgia. 3. Hypothyroidism. 4. History of peripheral neuropathy. 5. History of thyroid nodules. 6. History of environmental allergies. 7. History of hysterectomy. 8. History of anxiety. 9. History of nicotine dependence. 10.FULL CODE. DISCHARGE DISPOSITION: The patient will be discharged in a stable condition with a guarded prognosis. HISTORY OF PRESENT ILLNESS: This 40-year-old woman with a past medical history of multiple medical problems, admitted with significant nausea, vomiting. Patient treated symptomatically, improved significantly. PHYSICAL EXAMINATION: VITAL SIGNS: Stable. CARDIOVASCULAR: S1 and S2. ABDOMEN: Soft. NERVOUS SYSTEM: No focal deficits. Patient will be discharged in stable condition with guarded prognosis. DISCHARGE INSTRUCTIONS: 1. Diet is soft as tolerated. 2. Follow up with Dr. Alonso in 1-2 days. 3. Follow up with Dr. Rousseau as recommended. MEDICATIONS: 1. Bentyl 20 mg t.i.d. p.r.n. 2. Claritin 10 mg daily. 3. Hydrocodone 10 mg q.i.d. p.r.n. 4. Rimegepant 75 mg q.48 hours. 5. Protonix 40 mg b.i.d. 6. Prozac 20 mg daily. 7. Vitamin D2 50,000 daily. 8. Xanax 0.5 daily. 9. Zofran 4 mg q.8h p.r.n. Once again, the patient will be discharged in stable condition with guarded prognosis. MMODL / IJN: [id number] /
[2020-10-04] MEDS ORDERED: ERGOCALCIFEROL 1,250 MCG (50,000 IU) CAPSULE PO SCH (09:00)
== END 2020-10-02 12:30 | disposition home or self-care (01) ==
LOC: EC 20:50 → 6NMEDSUR 22:35
PROVIDERS: ADMIT Internal Medicine; ATTEND Internal Medicine
DX: R11.2 Nausea with vomiting, unspecified (principal); K58.0 Irritable bowel syndrome with diarrhea; D72.829 Elevated white blood cell count, unspecified; E03.9 Hypothyroidism, unspecified; M79.7 Fibromyalgia; M19.90 Unspecified osteoarthritis, unspecified site; E04.2 Nontoxic multinodular goiter; G62.9 Polyneuropathy, unspecified; F41.9 Anxiety disorder, unspecified; F32.9 Major depressive disorder, single episode, unspecified; Z20.828 Contact with and (suspected) exposure to other viral communicable diseases; Z79.891 Long term (current) use of opiate analgesic; Z79.899 Other long term (current) drug therapy; Z88.5 Allergy status to narcotic agent; Z87.891 Personal history of nicotine dependence; Z87.19 Personal history of other diseases of the digestive system; Z98.890 Other specified postprocedural states; Z90.710 Acquired absence of both cervix and uterus; Z82.49 Family history of ischemic heart disease and other diseases of the circulatory system
CPT/HCPCS: 96376 ×3; 96361 ×3; 96372 ×3; 96375 ×2; 96374; 99285; 36415; 80051; 80053 ×2; 82150; 83690; 85025 ×2; 81001; 80306; 71045; 74019; G0378 ×3; U0003; U0005; J2270 ×2; J0500; J1644 ×2; J2765 ×3; J2405 ×2; C9113 ×2

== ENCOUNTER 2020-11-17 18:43 | Inpatient (IN) | payer MEDICARE, OTHER ==
[2020-11-17] MEDS ORDERED: SODIUM CHLORIDE 0.9% 1,000 ML IV STA (19:10)
[2020-11-17] MEDS ORDERED: MORPHINE SULFATE 2 MG/ML SYRINGE IVP STA (19:10)
--- NOTE | 2020-11-17 19:17 | ED ---
Abdominal Pain HPI - General Chief Complaint: Abdominal Pain Stated Complaint: Nausea, Vomiting Time Seen by Provider: 11/17/20 18:52 Source: patient, RN notes reviewed Mode of arrival: ambulatory Limitations: no limitations - History of Present Illness Initial Comments: 40-year-old white female patient presents to the emergency room with 48 hours of nausea and vomiting. patient states that she has vomited over 25 times, now dry heaves. Patient states feels like her irritable bowel syndrome is acting up which she is hospitalized usually once a month for. Patient denies any fevers, diarrhea, chest pains or cough. Describes the pain as burning. MD Complaint: abdominal pain -: days(s) (2) Location: RLQ Radiation: none Migration to: no migration Severity scale (1-10): 7 Quality: burning Consistency: constant Improves With: rest Worsens With: vomiting (more than 25 times in past 2 days) Context: other (feels like her IBS, usually hospitalized once a month) Associated Symptoms: nausea, vomiting - Related Data Home Medications Medication Instructions Recorded Confirmed HYDROcodone/APAP 10-325MG [[place] 1 tab PO QID PRN 04/03/17 10/01/20 10-325] Loratadine [Claritin] 10 mg PO DAILY 04/03/17 10/01/20 Ergocalciferol [Vitamin D2 50,000 unit PO MO 02/13/20 10/01/20 (DRISDOL)] Dicyclomine [Bentyl] 20 mg PO TID PRN 06/11/20 10/01/20 Pantoprazole Sodium [Protonix] 40 mg PO BID 06/11/20 10/01/20 FLUoxetine HCL [PROzac] 20 mg PO DAILY 09/28/20 10/01/20 ALPRAZolam [Xanax] 0.25 mg PO DAILY PRN 09/29/20 10/01/20 Rimegepant Sulfate [Nurtec Odt] 75 mg PO Q48H PRN 09/29/20 10/01/20 Previous Rx's Medication Instructions Recorded Ondansetron HCl [Zofran] 4 mg PO Q8H PRN 5 Days #15 tab 06/13/20 Allergies Allergy/AdvReac Type Severity Reaction Status Date / Time propoxyphene Allergy Rash/Hives Verified 11/17/20 18:55 [From Darvocet-N] Review of Systems ROS Statement: Those systems with pertinent positive or pertinent negative responses have been documented in the HPI. ROS Other: All systems not noted in ROS Statement are negative. Past Medical History Past Medical History: Fibromyalgia, Thyroid Disorder Additional Past Medical History / Comment(s): DDD , BULDGING DISCS, NEUROPATHY LEGS.,THYROID NODULES, HX ANEMIA, ENVIRONMENTAL ALLERGIES, CONSTIPATION & DIARRHEA, STATES VOMITING AND STOMACH PAIN FOR SEVERAL MONTHS.IBS, chronic gasteritis History of Any Multi-Drug Resistant Organisms: None Reported Past Surgical History: Hysterectomy, Orthopedic Surgery Additional Past Surgical History / Comment(s): rt wrist/forearm ,D&C, MASS ON VOCAL CORD SURGERY, AND BX. Past Anesthesia/Blood Transfusion Reactions: Postoperative Nausea & Vomiting (PONV) Additional Past Anesthesia/Blood Transfusion Reaction / Comment(s): CONSTIPATION POST-OP Past Psychological History: Anxiety Smoking Status: Former smoker Past Alcohol Use History: None Reported Past Drug Use History: Marijuana - Past Family History Mother Family Medical History: No Reported History Father Additional Family Medical History / Comment(s): cardiovascular swelling General Exam Limitations: no limitations General appearance: alert, in no apparent distress Head exam: Present: atraumatic, normocephalic, normal inspection Eye exam: Present: normal appearance, PERRL, EOMI. Absent: scleral icterus, conjunctival injection, periorbital swelling ENT exam: Present: normal exam, mucous membranes dry, normal external ear exam Neck exam: Present: normal inspection, full ROM. Absent: tenderness, meningismus, lymphadenopathy, thyromegaly Respiratory exam: Present: normal lung sounds bilaterally. Absent: respiratory distress, wheezes, rales, rhonchi, stridor Cardiovascular Exam: Present: regular rate, normal rhythm, normal heart sounds. Absent: systolic murmur, diastolic murmur, rubs, gallop, clicks GI/Abdominal exam: Present: soft, normal bowel sounds. Absent: distended, tenderness, guarding, rebound, rigid, organomegaly, mass Extremities exam: Present: normal inspection (yellow green bruise to left forearm, states from bathtub.), full ROM, normal capillary refill. Absent: tenderness, pedal edema, joint swelling, calf tenderness Back exam: Present: normal inspection. Absent: tenderness Neurological exam: Present: alert, oriented X3, CN II-XII intact Psychiatric exam: Present: normal affect, normal mood Skin exam: Present: warm, dry, intact, normal color. Absent: rash Course Vital Signs 11/17/20 11/17/20 18:51 22:00 Temperature 98.7 F Pulse Rate 83 80 Respiratory 18 18 Rate Blood Pressure 113/77 164/88 O2 Sat by Pulse 99 98 Oximetry Medical Decision Making - Medical Decision Making KUB shows nondilated bowel loops no acute process. White blood count 13.7 with neutrophil count of 10.7, ALT 78, lipase 38, amylase 56, troponin 0.012. - Lab Data Result diagrams: 11/17/20 19:38 11/17/20 19:38 Lab Results 11/17/20 11/17/20 11/17/20 Range/Units 19:38 19:38 19:38 WBC 13.7 H (3.8-10.6) k/uL RBC 4.52 (3.80-5.40) m/uL Hgb 14.0 (11.4-16.0) gm/dL Hct 39.3 (34.0-46.0) % MCV 87.1 (80.0-100.0) fL MCH 31.0 (25.0-35.0) pg MCHC 35.6 (31.0-37.0) g/dL RDW 12.7 (11.5-15.5) % Plt Count 242 (150-450) k/uL MPV 7.4 Neutrophils % 78 % Lymphocytes % 14 % Monocytes % 5 % Eosinophils % 2 % Basophils % 0 % Neutrophils # 10.7 H (1.3-7.7) k/uL Lymphocytes # 2.0 (1.0-4.8) k/uL Monocytes # 0.6 (0-1.0) k/uL Eosinophils # 0.2 (0-0.7) k/uL Basophils # 0.0 (0-0.2) k/uL Sodium 141 (137-145) mmol/L Potassium 4.0 (3.5-5.1) mmol/L Chloride 105 (98-107) mmol/L Carbon Dioxide 23 (22-30) mmol/L Anion Gap 13 mmol/L BUN 21 H (7-17) mg/dL Creatinine 0.70 (0.52-1.04) mg/dL Est GFR (CKD-EPI)AfAm >90 (>60 ml/min/1.73 sqM) Est GFR (CKD-EPI)NonAf >90 (>60 ml/min/1.73 sqM) Glucose 104 H (74-99) mg/dL Plasma Lactic Acid Zaid (0.7-2.0) mmol/L Calcium 9.7 (8.4-10.2) mg/dL Total Bilirubin 0.7 (0.2-1.3) mg/dL AST 34 (14-36) U/L ALT 78 H (4-34) U/L Alkaline Phosphatase 123 (38-126) U/L Troponin I (0.000-0.034) ng/mL Total Protein 7.7 (6.3-8.2) g/dL Albumin 4.7 (3.5-5.0) g/dL Amylase 56 (30-110) U/L Lipase 38 (23-300) U/L Urine Color Yellow Urine Appearance Clear (Clear) Urine pH 7.0 (5.0-8.0) Ur Specific [place] 1.014 (1.001-1.035) Urine Protein 1+ H (Negative) Urine Glucose (UA) Negative (Negative) Urine Ketones 2+ H (Negative) Urine Blood Negative (Negative) Urine Nitrite Negative (Negative) Urine Bilirubin Negative (Negative) Urine Urobilinogen <2.0 (<2.0) mg/dL Ur Leukocyte Esterase Trace H (Negative) Urine RBC 1 (0-5) /hpf Urine WBC 3 (0-5) /hpf Ur Squamous Epith Cells 1 (0-4) /hpf Hyaline Casts 3 H (0-2) /lpf Urine Mucus Moderate H (None) /hpf 11/17/20 11/17/20 Range/Units 19:38 19:38 WBC (3.8-10.6) k/uL RBC (3.80-5.40) m/uL Hgb (11.4-16.0) gm/dL Hct (34.0-46.0) % MCV (80.0-100.0) fL MCH (25.0-35.0) pg MCHC (31.0-37.0) g/dL RDW (11.5-15.5) % Plt Count (150-450) k/uL MPV Neutrophils % % Lymphocytes % % Monocytes % % Eosinophils % % Basophils % % Neutrophils # (1.3-7.7) k/uL Lymphocytes # (1.0-4.8) k/uL Monocytes # (0-1.0) k/uL Eosinophils # (0-0.7) k/uL Basophils # (0-0.2) k/uL Sodium (137-145) mmol/L Potassium (3.5-5.1) mmol/L Chloride (98-107) mmol/L Carbon Dioxide (22-30) mmol/L Anion Gap mmol/L BUN (7-17) mg/dL Creatinine (0.52-1.04) mg/dL Est GFR (CKD-EPI)AfAm (>60 ml/min/1.73 sqM) Est GFR (CKD-EPI)NonAf (>60 ml/min/1.73 sqM) Glucose (74-99) mg/dL Plasma Lactic Acid Zaid 1.1 (0.7-2.0) mmol/L Calcium (8.4-10.2) mg/dL Total Bilirubin (0.2-1.3) mg/dL AST (14-36) U/L ALT (4-34) U/L Alkaline Phosphatase (38-126) U/L Troponin I <0.012 (0.000-0.034) ng/mL Total Protein (6.3-8.2) g/dL Albumin (3.5-5.0) g/dL Amylase (30-110) U/L Lipase (23-300) U/L Urine Color Urine Appearance (Clear) Urine pH (5.0-8.0) Ur Specific [place] (1.001-1.035) Urine Protein (Negative) Urine Glucose (UA) (Negative) Urine Ketones (Negative) Urine Blood (Negative) Urine Nitrite (Negative) Urine Bilirubin (Negative) Urine Urobilinogen (<2.0) mg/dL Ur Leukocyte Esterase (Negative) Urine RBC (0-5) /hpf Urine WBC (0-5) /hpf Ur Squamous Epith Cells (0-4) /hpf Hyaline Casts (0-2) /lpf Urine Mucus (None) /hpf - EKG Data EKG shows normal: sinus rhythm Rate: normal (Ventricular rate of 76, CO interval 0.10, QRS 0.90, QTc 486) Disposition Clinical Impression: Intractable vomiting with nausea Disposition: ADMITTED IP TO THIS HOSP Condition: Good Is patient prescribed a controlled substance at d/c from ED?: No Referrals: Digna Alonso MD [Primary Care Provider] - 1-2 days Decision Date: 11/17/20 Decision Time: 23:18
[2020-11-17 19:53] LABS: Basophils % (A) 0 %; Eosinophils # (A) 0.2 k/uL (0-0.7); Eosinophils % (A) 2 %; HCT 39.3 % (34.0-46.0); Lymphocytes % (A) 14 %; MCHC 35.6 g/dL (31.0-37.0); MCV 87.1 fL (80.0-100.0); Mean Platelet Volume 7.4; Monocytes # (A) 0.6 k/uL (0-1.0); Monocytes % (A) 5 %; Neutrophils # (A) 10.7 k/uL (1.3-7.7); Neutrophils % (A) 78 %; Platelet Count 242 k/uL (150-450); RBC 4.52 m/uL (3.80-5.40); RDW 12.7 % (11.5-15.5); WBC 13.7 k/uL (3.8-10.6)
[2020-11-17 20:01] LABS: ALT 78 U/L (4-34); AST 34 U/L (14-36); African American GFR (CKD) >90 (>60 ml/min/1.73 sqM); Albumin 4.7 g/dL (3.5-5.0); Alkaline Phosphatase 123 U/L (38-126); Amylase 56 U/L (30-110); Anion Gap 13 mmol/L; Blood Urea Nitrogen 21 mg/dL (7-17); Calcium 9.7 mg/dL (8.4-10.2); Carbon Dioxide 23 mmol/L (22-30); Chloride 105 mmol/L (98-107); Glucose 104 mg/dL (74-99); Lipase 38 U/L (23-300); Non-African American GFR(CKD) >90 (>60 ml/min/1.73 sqM); Sodium 141 mmol/L (137-145); Total Bilirubin 0.7 mg/dL (0.2-1.3); Total Protein 7.7 g/dL (6.3-8.2)
[2020-11-17] MEDS ORDERED: TRIMETHOBENZAMIDE 100 MG/ML 2 ML VIAL IM STA (20:08)
--- NOTE | 2020-11-17 20:19 | XR ---
EXAM: Abdomen radiograph. HISTORY: Pain. TECHNIQUE: Upright AP view. COMPARISON: 10/01/2020 FINDINGS: There are nondilated bowel loops with a nonobstructive pattern. No free air. There are no pathologic calcifications. No acute osseous abnormality seen. IMPRESSION: No acute process.
[2020-11-17 21:21] LABS: Appearance,Urine Clear (Clear); Bilirubin,Urine Negative (Negative); Blood,Urine Negative (Negative); Color,Urine Yellow; Glucose,Urine (UA) Negative (Negative); Hyaline Casts,Urine 3 /lpf (0-2); Ketones,Urine 2+ (Negative); Leukocyte Esterase,Urine Trace (Negative); Mucus,Urine Moderate /hpf; Nitrite,Urine Negative (Negative); Protein,Urine 1+ (Negative); RBC,Urine 1 /hpf (0-5); Specific Gravity,Urine 1.014 (1.001-1.035); Squamous Epithelial Cell,Urine 1 /hpf (0-4); Urobilinogen,Urine <2.0 mg/dL (<2.0); WBC,Urine 3 /hpf (0-5)
[2020-11-17] MEDS ORDERED: FAMOTIDINE 20 MG/2 ML VIAL IV STA (21:50)
[2020-11-17] MEDS ORDERED: diphenhydrAMINE 50 MG/ML 1 ML VIAL IVP STA (21:50)
[2020-11-17] MEDS ORDERED: NALOXONE 0.4 MG/ML 1 ML VIAL IV PRN (23:08)
[2020-11-17] MEDS ORDERED: MORPHINE SULFATE 2 MG/ML SYRINGE IV PRN (23:08)
[2020-11-17] MEDS ORDERED: ACETAMINOPHEN TAB 325 MG TAB PO PRN (23:08)
[2020-11-18] MEDS: METOCLOPRAMIDE 5 MG/ML 2 ML VIAL IVP PRN ×4 (01:36→21:38)
[2020-11-18] MEDS ORDERED: hydrALAZINE HCL 25 MG TAB PO PRN (06:23)
[2020-11-18] MEDS ORDERED: ONDANSETRON 4 MG/2 ML VIAL IVP ONE (06:27)
[2020-11-18] MEDS: DEXTROSE 5%-0.9% NACL 1,000 ML IV SCH ×2 (06:41→19:06)
[2020-11-18] MEDS: amLODIPine 5 MG TAB PO SCH ×2 (07:43→08:05)
[2020-11-18] MEDS: DICYCLOMINE 20 MG TAB PO PRN ×2 (08:56→14:08)
[2020-11-18] MEDS ORDERED: PANTOPRAZOLE 40 MG/10 ML VIAL IV SCH (09:00)
[2020-11-18] MEDS: ONDANSETRON 4 MG/2 ML VIAL IVP PRN ×2 (11:48→16:48)
[2020-11-18 12:01] VITALS: BMI 25.0
[2020-11-18] MEDS ORDERED: TEMAZEPAM 15 MG CAP PO PRN (19:11)
[2020-11-18] MEDS: TRIMETHOBENZAMIDE 100 MG/ML 2 ML VIAL IM PRN (19:37)
[2020-11-18] MEDS: PANTOPRAZOLE 40 MG/10 ML VIAL IV SCH (21:36)
--- NOTE | 2020-11-18 22:58 | P.HPIM ---
History of Present Illness H&P Date: 11/18/20 Chief Complaint: Nausea and vomiting Patient is a 40-year-old female with known history of fibromyalgia, hypothyroidism, disc degenerative disc disease, bilateral peripheral neuropathy, IBS diagnosed in August 2019 and chronic gastritis, anxiety and previous history of smoking and history of marijuana use presents to ER with the complaints of intractable nausea and vomiting for the past 2 days. Vomitus is mainly nonbilious and watery. Unable to tolerate any oral intake. patient states that she has vomited over 25 times and having dry heaves. Patient feels that her irritable bowel syndrome is acting up and presents to ER. Patient was having abdominal pain mainly mid abdomen. No diarrhea. Patient does have loose stools on daily basis. Denies any complaints of chest pain or shortness breath. No fever no chills. No hematemesis melena. Laboratory data showed WBC 13.7, hemoglobin 14.0 and platelets 242 Sodium 141 potassium 4.0 chloride 105 BUN 21 creatinine 0.7 AST 34 ALT 78 and urinalysis is negative for infection. Coronavirus PCR not detected KUB x-ray showed no acute process. Review of Systems Constitutional: Patient denies any fever or chills . No generalized weakness or weight loss. Abdomen: Complains of abdominal pain associate with nausea and vomiting. No diarrhea. Cardiovascular: Patient denies any chest pain or short of breath no palpitations. Respiratory: patient denied any cough or sputum production. No shortness of breath Neurologic: Patient denied any numbness or tingling headache. Musculoskeletal: Patient denies any complaints of joint swelling or deformity. Skin: Negative Psychiatric: Negative Endocrine: No heat or cold intolerance. No recent weight gain. Genitourinary: No dysuria or hematuria. All other 14 point ROS negative except the above Past Medical History Past Medical History: Fibromyalgia, Thyroid Disorder Additional Past Medical History / Comment(s): DDD, bulging discs, neuropathy in legs, thyroid nodules, anemia, environmental allergies, constipation/diarrhea, IBS diagnosed in 2019, chronic gastritis. History of Any Multi-Drug Resistant Organisms: None Reported Past Surgical History: Hysterectomy, Orthopedic Surgery Additional Past Surgical History / Comment(s): Right wrist and forearm surgery, D&C, mass on vocal cords - surgery and biopsy. Past Anesthesia/Blood Transfusion Reactions: Postoperative Nausea & Vomiting (PONV) Additional Past Anesthesia/Blood Transfusion Reaction / Comment(s): Constipation post-op. Past Psychological History: Anxiety Smoking Status: Former smoker Past Alcohol Use History: None Reported Additional Past Alcohol Use History / Comment(s): Quit smoking in 2019, history of 1 PPD. Started smoking at age 14. Past Drug Use History: Marijuana Additional Drug Use History / Comment(s): States she hasn't smoked in a few days. - Past Family History Mother Family Medical History: No Reported History Father Additional Family Medical History / Comment(s): "Cardiovascular swelling". Medications and Allergies Home Medications Medication Instructions Recorded Confirmed Type HYDROcodone/APAP 10-325MG [[place] 1 tab PO QID 04/03/17 11/17/20 History 10-325] Loratadine [Claritin] 10 mg PO DAILY 04/03/17 11/17/20 History Ergocalciferol [Vitamin D2 50,000 unit PO MO 02/13/20 11/17/20 History (DRISDOL)] Dicyclomine [Bentyl] 20 mg PO TID PRN 06/11/20 11/17/20 History Pantoprazole Sodium [Protonix] 40 mg PO BID 06/11/20 11/17/20 History FLUoxetine HCL [PROzac] 20 mg PO DAILY 09/28/20 11/17/20 History ALPRAZolam [Xanax] 0.25 mg PO DAILY PRN 09/29/20 11/17/20 History Rimegepant Sulfate [Nurtec Odt] 75 mg PO Q48H PRN 09/29/20 11/17/20 History Ondansetron [Zofran ODT] 8 mg PO BID PRN 11/17/20 11/17/20 History Allergies Allergy/AdvReac Type Severity Reaction Status Date / Time propoxyphene Allergy Rash/Hives Verified 11/18/20 03:15 [From Sissy] Physical Exam Vitals: Vital Signs Temp Pulse Pulse Resp BP BP Pulse Ox 11/18/20 10:23 161/96 11/18/20 08:45 98.2 F 70 16 163/96 99 11/18/20 06:08 82 187/102 11/18/20 02:00 98.6 F 87 20 173/98 99 11/18/20 01:13 85 18 146/90 97 11/18/20 00:58 155/80 11/17/20 22:00 80 18 164/88 98 11/17/20 18:51 98.7 F 83 18 113/77 99 Intake and Output 11/17/20 11/18/20 11/18/20 22:59 06:59 14:59 Other: Voiding Method Toilet # Voids 1 Weight 70.307 kg 70.307 kg PHYSICAL EXAMINATION: Patient is lying in the bed comfortably, no acute distress, awake alert and oriented.. HEENT: Normocephalic. Neck is supple. Pupils reactive. Nostrils clear. Oral cavity is moist. Ears reveal no drainage. Neck reveals no JVD, carotid bruits, or thyromegaly. CHEST EXAMINATION: Trachea is central. Symmetrical expansion. Lung sullivan clear to auscultation and percussion. CARDIAC: Normal S1, S2 with no gallops. No murmurs ABDOMEN: Soft. Bowel sounds normal. No organomegaly. No abdominal bruits. Mild epigastric tenderness. No guarding or rigidity. Extremities: reveal no edema. No clubbing or cyanosis Neurologically awake, alert, oriented x3 with well-coordinated movements. No focal deficits noted Skin: No rash or skin lesions. Psychiatric: Coperative. Nonsuicidal, anxious Musculoskeletal: No joint swelling or deformity. Normal range of motion. Results CBC & Chem 7: 11/17/20 19:38 11/17/20 19:38 Labs: Abnormal Lab Results - Last 24 Hours (Table) 11/17/20 11/17/20 11/17/20 Range/Units 19:38 19:38 19:38 WBC 13.7 H (3.8-10.6) k/uL Neutrophils # 10.7 H (1.3-7.7) k/uL BUN 21 H (7-17) mg/dL Glucose 104 H (74-99) mg/dL ALT 78 H (4-34) U/L Urine Protein 1+ H (Negative) Urine Ketones 2+ H (Negative) Ur Leukocyte Esterase Trace H (Negative) Hyaline Casts 3 H (0-2) /lpf Urine Mucus Moderate H (None) /hpf Thrombosis Risk Factor Assmnt - DVT/VTE Prophylaxis DVT/VTE Prophylaxis: Pharmacologic Prophylaxis ordered - Choose All That Apply Each Factor Represents 1 point: Age 41-60 years, Hx of IBD Other Risk Factors: No Other congenital or acquired thrombophilia - If yes, enter type in comment: No Thrombosis Risk Factor Assessment Total Risk Factor Score: 2 Thrombosis Risk Factor Assessment Level: Low Risk Assessment and Plan Assessment: Intractable nausea and vomiting with history of irritable bowel syndrome Possible acute gastritis Elevated blood pressure likely due to pain and nausea. Leukocytosis likely reactive. Hypothyroidism Fibromyalgia Bilateral peripheral neuropathy nondiabetic Degenerative disc disease Anxiety Previous history of smoking History of marijuana use DVT prophylaxis with heparin subcu Plan: Patient will be continued on IV hydration with D5 normal saline and follow-up electrolytes and replace. Continue with symptomatic management for nausea and vomiting. Continue with Zofran and a dose of Reglan was given. Replace electrolytes. Monitor CBC and rule out infection. Patient will be continued on current management and follow-up closely. Further recommendations based on the clinical course. Time with Patient: Greater than 30
[2020-11-19] MEDS ORDERED: ONDANSETRON 4 MG/2 ML VIAL ONE (02:00)
[2020-11-19] MEDS ORDERED: METOCLOPRAMIDE 5 MG/ML 2 ML VIAL ONE (04:07)
[2020-11-19] MEDS: HEPARIN SODIUM,PORCINE 5,000 UNIT/ML 1 ML VIAL SQ SCH ×3 (06:02→15:38)
--- NOTE | 2020-11-19 06:50 | P.CONS ---
History of Present Illness - Reason for Consult Consult date: 11/18/20 nausea and vomiting, abdominal pain Requesting physician: Luba Herrera - Chief Complaint Intractable nausea and vomiting - History of Present Illness 40-year-old female with a medical history significant for irritable bowel syndrome with prior hospitalizations due to complaints of nausea and vomiting as well as fibromyalgia, hypothyroidism, peripheral neuropathy, anxiety, marijuana use in degenerative disc disease who presented to the hospital for intractable nausea and vomiting. She reports waking up with nausea and subsequently having multiple episodes of vomiting over the 2 days prior to presentation to the emergency department. She reports diffuse periumbilical normal pain described as soreness secondary to her retching and vomiting. She denies any signs or symptoms of GI bleeding. The patient has undergone evaluation of her symptoms in the past with EGD and colonoscopyin 01/2020 with findings of mild gastritis and mild ileitis with no evidence of inflammatory changes found on biopsies of the ileum or colon. The patient takes Protonix and Bentyl at home as well as Zofran as needed. Currently she is seen in the medical floor reporting some im provement of symptoms. Laboratory evaluation significant for WBC 13.7, hemoglobin 14, the count 242,000, total bilirubin 0.7, alkaline phosphatase 123, AST 34. ALT 78. KUB x-ray was normal. She does report increased stress as her father was recently ill. Review of Systems REVIEW OF SYSTEMS: CONSTITUTIONAL: Denies any fevers, chills, weight change or fatigue. CARDIOVASCULAR: Denies any chest pain, palpitations high or low blood pressures RESPIRATORY: Denies any shortness of breath, hemoptysis or cough. GENITOURINARY: No dysuria or hematuria. MUSCULOSKELETAL: No weakness reported. SKIN: Denies any new rashes or lesions, jaundice or pallor. PSYCHIATRIC: Denies any depression or anxiety currently but she does report increased stress due to illness in her father. NEUROLOGY: Denies headache, denies any new focal deficits. EARS/NOSE/THROAT: No recent hearing change, congestion, nasal discharge or sore throat. EYES: No pain in eyes, discharge or change in vision. GASTROINTESTINAL: As per HPI. Past Medical History Past Medical History: Fibromyalgia, Thyroid Disorder Additional Past Medical History / Comment(s): DDD, bulging discs, neuropathy in legs, thyroid nodules, anemia, environmental allergies, constipation/diarrhea, IBS diagnosed in 2019, chronic gastritis. History of Any Multi-Drug Resistant Organisms: None Reported Past Surgical History: Hysterectomy, Orthopedic Surgery Additional Past Surgical History / Comment(s): Right wrist and forearm surgery, D&C, mass on vocal cords - surgery and biopsy. Past Anesthesia/Blood Transfusion Reactions: Postoperative Nausea & Vomiting (PONV) Additional Past Anesthesia/Blood Transfusion Reaction / Comm: Constipation post- op. Past Psychological History: Anxiety Smoking Status: Former smoker Past Alcohol Use History: None Reported Additional Past Alcohol Use History / Comment(s): Quit smoking in 2019, history of 1 PPD. Started smoking at age 14. Past Drug Use History: Marijuana Additional Drug Use History / Comment(s): States she hasn't smoked in a few days. - Past Family History Mother Family Medical History: No Reported History Father Additional Family Medical History / Comment(s): "Cardiovascular swelling". Medications and Allergies Home Medications Medication Instructions Recorded Confirmed Type HYDROcodone/APAP 10-325MG [[place] 1 tab PO QID 04/03/17 11/17/20 History 10-325] Loratadine [Claritin] 10 mg PO DAILY 04/03/17 11/17/20 History Ergocalciferol [Vitamin D2 50,000 unit PO MO 02/13/20 11/17/20 History (DRISDOL)] Dicyclomine [Bentyl] 20 mg PO TID PRN 06/11/20 11/17/20 History Pantoprazole Sodium [Protonix] 40 mg PO BID 06/11/20 11/17/20 History FLUoxetine HCL [PROzac] 20 mg PO DAILY 09/28/20 11/17/20 History ALPRAZolam [Xanax] 0.25 mg PO DAILY PRN 09/29/20 11/17/20 History Rimegepant Sulfate [Nurtec Odt] 75 mg PO Q48H PRN 09/29/20 11/17/20 History Ondansetron [Zofran ODT] 8 mg PO BID PRN 11/17/20 11/17/20 History Allergies Allergy/AdvReac Type Severity Reaction Status Date / Time propoxyphene Allergy Rash/Hives Verified 11/18/20 03:15 [From Martha-Sumit] Physical Exam Vitals: Vital Signs Temp Pulse Pulse Resp BP BP Pulse Ox 11/18/20 10:23 161/96 11/18/20 08:45 98.2 F 70 16 163/96 99 11/18/20 06:08 82 187/102 11/18/20 02:00 98.6 F 87 20 173/98 99 11/18/20 01:13 85 18 146/90 97 11/18/20 00:58 155/80 11/17/20 22:00 80 18 164/88 98 11/17/20 18:51 98.7 F 83 18 113/77 99 Intake and Output 11/17/20 11/18/20 11/18/20 22:59 06:59 14:59 Output Total 50 Balance -50 Output: Emesis 50 Other: Voiding Method Toilet # Voids 1 Weight 70.307 kg 70.307 kg 70.307 kg On physical examination, patient appears comfortable in no apparent distress. HEAD: Normocephalic, atraumatic. EYES: No scleral icterus. No conjunctival injection. MOUTH: No lesions, tongue midline. NECK: Trachea midline, no gross abnormalities. CHEST: Clear to auscultation with no wheezing or rhonchi appreciated. HEART: Regular rate and rhythm. ABDOMEN: Soft, mildly tender to palpation. Bowel sounds are positive. No organomegaly. No guarding or rigidity. EXTREMITIES: No pedal edema. SKIN: No rashes, no jaundice. NEUROLOGIC: Alert and oriented x3. No focal deficits. Results CBC & Chem 7: 11/17/20 19:38 11/17/20 19:38 Labs: Abnormal Lab Results - Last 24 Hours (Table) 11/17/20 11/17/20 11/17/20 Range/Units 19:38 19:38 19:38 WBC 13.7 H (3.8-10.6) k/uL Neutrophils # 10.7 H (1.3-7.7) k/uL BUN 21 H (7-17) mg/dL Glucose 104 H (74-99) mg/dL ALT 78 H (4-34) U/L Urine Protein 1+ H (Negative) Urine Ketones 2+ H (Negative) Ur Leukocyte Esterase Trace H (Negative) Hyaline Casts 3 H (0-2) /lpf Urine Mucus Moderate H (None) /hpf Abdominal x-ray: report reviewed (x-ray of the abdomen within normal limits.) Assessment and Plan (1) Intractable vomiting with nausea Narrative/Plan: 40-year-old female with a known history of fibromyalgia, degenerative disc disease and irritable bowel syndrome presents to the hospital with intractable nausea and vomiting. Similar hospitalizations in the past improved with symptomatic care. Evaluation with endoscopy with EGD and colonoscopy in 01/2020 significant only for mild gastritis and mild ileitis with negative biopsies of the terminal ileum. Patient takes Protonix and Bentyl at home as well as Zofran as needed for nausea. She reports symptoms worsened due to stress related to her father being ill. Current Visit: Yes Status: Acute Code(s): R11.2 - NAUSEA WITH VOMITING, UNSPECIFIED SNOMED Code(s): 381987256 (2) Abdominal pain Current Visit: No Status: Acute Code(s): R10.9 - UNSPECIFIED ABDOMINAL PAIN SNOMED Code(s): 69653917 Plan: supportive care Okay for diet as tolerated Protonix increased to twice a day Tigan added as needed for breakthrough nausea Continue Bentyl therapy as needed for abdominal pain and cramping Continue as needed Zofran No plans for endoscopic evaluation at this time Thank you for allowing us to participate In the care of the patient
[2020-11-19] MEDS: TRIMETHOBENZAMIDE 100 MG/ML 2 ML VIAL IM PRN ×2 (07:48→13:55)
[2020-11-19] MEDS: DEXTROSE 5%-0.9% NACL 1,000 ML IV SCH (07:48)
[2020-11-19] MEDS: amLODIPine 5 MG TAB PO SCH (09:01)
[2020-11-19] MEDS: PANTOPRAZOLE 40 MG/10 ML VIAL IV SCH (09:01)
[2020-11-19] MEDS: ONDANSETRON 4 MG/2 ML VIAL IVP PRN ×2 (09:01→15:38)
[2020-11-19 09:45] LABS: Basophils # (A) 0.1 k/uL (0-0.2); Basophils % (A) 1 %; Eosinophils % (A) 0 %; HCT 46.4 % (34.0-46.0); HGB 16.2 gm/dL (11.4-16.0); Lymphocytes # (A) 2.3 k/uL (1.0-4.8); Lymphocytes % (A) 21 %; MCHC 34.8 g/dL (31.0-37.0); Mean Platelet Volume 7.4; Monocytes # (A) 0.5 k/uL (0-1.0); Monocytes % (A) 4 %; Neutrophils # (A) 8.3 k/uL (1.3-7.7); Neutrophils % (A) 73 %; Platelet Count 297 k/uL (150-450); RBC 5.21 m/uL (3.80-5.40); WBC 11.3 k/uL (3.8-10.6)
[2020-11-19 10:05] LABS: African American GFR (CKD) >90 (>60 ml/min/1.73 sqM); Anion Gap 12 mmol/L; Blood Urea Nitrogen 10 mg/dL (7-17); Calcium 10.2 mg/dL (8.4-10.2); Carbon Dioxide 28 mmol/L (22-30); Chloride 99 mmol/L (98-107); Glucose 126 mg/dL (74-99); Non-African American GFR(CKD) >90 (>60 ml/min/1.73 sqM); Potassium 3.7 mmol/L (3.5-5.1); Sodium 139 mmol/L (137-145)
[2020-11-19] MEDS: METOCLOPRAMIDE 5 MG/ML 2 ML VIAL IVP PRN ×2 (12:10→17:42)
--- NOTE | 2020-11-19 13:06 | P.PN ---
Subjective Progress Note Date: 11/19/20 Principal diagnosis: [place], vomiting and abdominal pain She was seen and examined sitting up in her chair. She states she just took an hour bath and is feeling much better. She states she to crackers and was able to keep it down. Her abdominal pain has subsided since a bath. She used Tigan through the evening with good response. Objective - Vital Signs Vital signs: Vital Signs Temp 98.4 F 11/19/20 02:00 Pulse 72 11/19/20 02:00 Resp 18 11/19/20 02:00 BP 159/95 11/19/20 02:00 Pulse Ox 94 L 11/19/20 02:00 Intake & Output 11/18/20 11/19/20 11/19/20 18:59 06:59 18:59 Intake Total 1290 Output Total 80 50 40 Balance 1210 -50 -40 Weight 70.307 kg Intake: Intake, IV Titration 750 Amount Dextrose 5%-0.9% NaCl 1, 750 000 ml @ 75 mls/hr IV . [id number] [facility] Rx#:[id number] Oral 540 Output: Emesis 80 50 40 Other: Voiding Method Toilet # Voids 1 2 - Exam General appearance: The patient is alert, oriented, appears in no acute distress. HET: Head is normocephalic and atraumatic. Conjunctiva pink. Sclera anicteric. Neck: Supple without lymphadenopathy. Abdomen: Soft, nontender, nondistended with bowel sounds. No guarding or rigidity. Extremities: Normal skin color and turgor. No pedal edema Skin: No rashes, no jaundice Neurological: No focal deficits. Alert and oriented 3. - Labs CBC & Chem 7: 11/19/20 08:43 11/19/20 08:43 Labs: Abnormal Lab Results - Last 24 Hours (Table) 11/19/20 11/19/20 Range/Units 08:43 08:43 WBC 11.3 H (3.8-10.6) k/uL Hgb 16.2 H (11.4-16.0) gm/dL Hct 46.4 H (34.0-46.0) % Neutrophils # 8.3 H (1.3-7.7) k/uL Glucose 126 H (74-99) mg/dL Assessment and Plan (1) Intractable vomiting with nausea Narrative/Plan: This is a 40-year-old female with a known history of fibromyalgia, degenerative disc disease and irritable bowel syndrome presents to the hospital with intractable nausea and vomiting. Similar hospitalizations in the past improved with symptomatic care. Evaluation with endoscopy with EGD and colonoscopy in 01/2020 significant only for mild gastritis and mild ileitis with negative biopsies of the terminal ileum. Patient takes Protonix and Bentyl at home as well as Zofran as needed for nausea. She reports symptoms worsened due to stress related to her father being ill. Current Visit: Yes Status: Acute Code(s): R11.2 - NAUSEA WITH VOMITING, UNSPECIFIED SNOMED Code(s): 038885514 (2) Abdominal pain Current Visit: No Status: Acute Code(s): R10.9 - UNSPECIFIED ABDOMINAL PAIN SNOMED Code(s): 61364951 Plan: supportive care Okay for diet as tolerated Protonix increased to twice a day Tigan as needed for breakthrough nausea Continue Bentyl therapy as needed for abdominal pain and cramping Continue as needed Zofran No plans for endoscopic evaluation at this time Thank you for allowing us to participate In the care of the patient. If she is able to tolerate and hold down her diet she may be discharged home later today. Dr. Rousseau I agree with the dictator's note, documented as a scribe by Nohemi Newberry.
[2020-11-19 14:51] VITALS: PULSE 97; RESP 16; TEMP 97.8
[2020-11-19 16:25] VITALS: BP 131/82
== END 2020-11-19 19:20 | disposition home or self-care (01) | DRG 392 ==
LOC: EC 18:43 → 6NMEDSUR 23:06 → 6PED 11-18 01:04 → OBSVTOIN 11-18 14:09
PROVIDERS: ADMIT Internal Medicine; ATTEND Internal Medicine
DX: K29.00 Acute gastritis without bleeding (principal); E03.9 Hypothyroidism, unspecified; F41.9 Anxiety disorder, unspecified; G62.9 Polyneuropathy, unspecified; D72.829 Elevated white blood cell count, unspecified; K58.9 Irritable bowel syndrome, unspecified; M79.7 Fibromyalgia; Z79.899 Other long term (current) drug therapy; Z87.891 Personal history of nicotine dependence; Z90.710 Acquired absence of both cervix and uterus; Z79.891 Long term (current) use of opiate analgesic; E04.1 Nontoxic single thyroid nodule; Z20.822 Contact with and (suspected) exposure to COVID-19
CPT/HCPCS: 36415; 74018; 80048; 80053; 81001; 82150; 83605; 83690; 84484; 85025; 87635; 93005; 96361; 96372; 96374; 96375; 99285

== ENCOUNTER 2021-02-27 15:26 | Emergency (ER) | payer MEDICARE, OTHER ==
[2021-02-27 15:32] VITALS: TEMP 98.3
[2021-02-27] MEDS ORDERED: DICYCLOMINE 10 MG/ML 2 ML AMP IM STA (16:18)
[2021-02-27] MEDS ORDERED: KETOROLAC 15 MG/ML 1 ML VIAL IVP STA (16:18)
[2021-02-27] MEDS ORDERED: SODIUM CHLORIDE 0.9% 1,000 ML IV STA (16:18)
[2021-02-27] MEDS ORDERED: ONDANSETRON 4 MG/2 ML VIAL IVP STA (16:18)
[2021-02-27] MEDS ORDERED: PANTOPRAZOLE 40 MG/10 ML VIAL IVP STA (16:18)
[2021-02-27 16:40] LABS: Basophils # (A) 0.1 k/uL (0-0.2); Basophils % (A) 0 %; Eosinophils # (A) 0.2 k/uL (0-0.7); Eosinophils % (A) 1 %; HCT 40.4 % (34.0-46.0); HGB 14.6 gm/dL (11.4-16.0); Lymphocytes % (A) 10 %; MCH 31.2 pg (25.0-35.0); MCHC 36.1 g/dL (31.0-37.0); MCV 86.3 fL (80.0-100.0); Mean Platelet Volume 7.3; Monocytes # (A) 0.8 k/uL (0-1.0); Monocytes % (A) 4 %; Neutrophils # (A) 16.5 k/uL (1.3-7.7); Neutrophils % (A) 84 %; Platelet Count 312 k/uL (150-450); RBC 4.68 m/uL (3.80-5.40); WBC 19.7 k/uL (3.8-10.6)
--- NOTE | 2021-02-27 16:46 | ED ---
Abdominal Pain HPI - General Chief Complaint: Abdominal Pain Stated Complaint: IBS Flareup, Vomiting Time Seen by Provider: 02/27/21 15:53 Source: patient Mode of arrival: ambulatory Limitations: no limitations - History of Present Illness Initial Comments: Patient is a 40-year-old female with history of IBS, presenting to the emergency Department with complaints of abdominal pain, nausea, vomiting, diarrhea that all started yesterday. She states this is consistent with her normal IBS flares. She states her pain is all lower to mid abdomen, spread all over, no specific area. She states she did try her Zofran, Protonix and Bentyl orally yesterday but threw them right up. She did not try to medication today. She's had no fevers, no shortness of breath, no chest pains. She has no further complaints at this time. Upon arrival to the ER, her vitals are stable. - Related Data Home Medications Medication Instructions Recorded Confirmed HYDROcodone/APAP 10-325MG [[place] 1 tab PO QID 04/03/17 11/17/20 10-325] Loratadine [Claritin] 10 mg PO DAILY 04/03/17 11/17/20 Ergocalciferol [Vitamin D2 50,000 unit PO MO 02/13/20 11/17/20 (DRISDOL)] Dicyclomine [Bentyl] 20 mg PO TID PRN 06/11/20 11/17/20 Pantoprazole Sodium [Protonix] 40 mg PO BID 06/11/20 11/17/20 FLUoxetine HCL [PROzac] 20 mg PO DAILY 09/28/20 11/17/20 ALPRAZolam [Xanax] 0.25 mg PO DAILY PRN 09/29/20 11/17/20 Rimegepant Sulfate [Nurtec Odt] 75 mg PO Q48H PRN 09/29/20 11/17/20 Ondansetron [Zofran ODT] 8 mg PO BID PRN 11/17/20 11/17/20 Allergies Allergy/AdvReac Type Severity Reaction Status Date / Time propoxyphene Allergy Rash/Hives Verified 02/27/21 15:31 [From Sissy] Review of Systems ROS Statement: Those systems with pertinent positive or pertinent negative responses have been documented in the HPI. ROS Other: All systems not noted in ROS Statement are negative. Past Medical History Past Medical History: Fibromyalgia, Thyroid Disorder Additional Past Medical History / Comment(s): DDD, bulging discs, neuropathy in legs, thyroid nodules, anemia, environmental allergies, constipation/diarrhea, IBS diagnosed in 2019, chronic gastritis. History of Any Multi-Drug Resistant Organisms: None Reported Past Surgical History: Hysterectomy, Orthopedic Surgery Additional Past Surgical History / Comment(s): Right wrist and forearm surgery, D&C, mass on vocal cords - surgery and biopsy. Past Anesthesia/Blood Transfusion Reactions: Postoperative Nausea & Vomiting (PONV) Additional Past Anesthesia/Blood Transfusion Reaction / Comment(s): Constipation post-op. Past Psychological History: Anxiety Smoking Status: Former smoker Past Alcohol Use History: None Reported Past Drug Use History: Marijuana - Past Family History Mother Family Medical History: No Reported History Father Additional Family Medical History / Comment(s): "Cardiovascular swelling". General Exam - General Exam Comments Initial Comments: GENERAL: Patient is well-developed and well-nourished. Patient is nontoxic and in mild distress. HEAD: Atraumatic, normocephalic. EYES: Pupils equal round and reactive to light, extraocular movements intact, sclera anicteric, conjunctiva are normal. Eyelids were unremarkable. ENT: TMs normal, nares patent, oropharynx clear without exudates. Moist mucous membranes. NECK: Normal range of motion, supple without lymphadenopathy or JVD. LUNGS: Unlabored respirations. Breath sounds clear to auscultation bilaterally and equal. No wheezes rales or rhonchi. HEART: Regular rate and rhythm without murmurs, rubs or gallops. ABDOMEN: Soft, tender over the entire mid to lower abdomen, no specific area, hyperactive bowel sounds. No guarding, no rebound. No masses appreciated. : Deferred MUSCULOSKELETAL: Normal extremities with adequate strength and normal range of motion, no pitting or edema. No clubbing or cyanosis. NEUROLOGICAL: Patient is alert and oriented x 3. Motor and sensory are also intact. Cranial nerves II through XII grossly intact. Symmetrical smile. Normal speech, normal gait. PSYCH: Normal mood, normal affect. SKIN: Warm, Dry, normal turgor, no rashes or lesions noted. Limitations: no limitations Course Vital Signs 02/27/21 02/27/21 02/27/21 15:27 17:21 18:32 Temperature 98.3 F Pulse Rate 59 L 84 83 Respiratory 20 18 18 Rate Blood Pressure 115/56 122/76 157/92 O2 Sat by Pulse 100 98 97 Oximetry Medical Decision Making - Medical Decision Making Patient is a 40-year-old female with history of IBS presenting with nausea, vomiting, diarrhea that started yesterday. The symptoms are consistent with her normal IBS flares. She is having some just generalized abdominal pain, no specific area. Her vitals are stable upon arrival. Labs show a white count of 19.7, this most likely reactive, lactic acid is normal at 1.6, kidney function is stable lipase is normal at 40, patient's urine shows 3+ ketones, no signs of infection. Patient given Liter and half of fluids, nausea medications along with pain medications. She's been resting comfortably, feels improved and her symptoms and is ready to go home. Patient's abdomen was reexamined, very minimal discomfort at this time. She states she follows with Dr. Rousseau. Return parameters were discussed with the patient she verbalized understanding. Case discussed with Dr. Hunter. - Lab Data Result diagrams: 02/27/21 16:24 02/27/21 16:24 Lab Results 02/27/21 02/27/21 02/27/21 Range/Units 16:24 16:24 16:24 WBC 19.7 H (3.8-10.6) k/uL RBC 4.68 (3.80-5.40) m/uL Hgb 14.6 (11.4-16.0) gm/dL Hct 40.4 (34.0-46.0) % MCV 86.3 (80.0-100.0) fL MCH 31.2 (25.0-35.0) pg MCHC 36.1 (31.0-37.0) g/dL RDW 13.0 (11.5-15.5) % Plt Count 312 (150-450) k/uL MPV 7.3 Neutrophils % 84 % Lymphocytes % 10 % Monocytes % 4 % Eosinophils % 1 % Basophils % 0 % Neutrophils # 16.5 H (1.3-7.7) k/uL Lymphocytes # 2.0 (1.0-4.8) k/uL Monocytes # 0.8 (0-1.0) k/uL Eosinophils # 0.2 (0-0.7) k/uL Basophils # 0.1 (0-0.2) k/uL Sodium 142 (137-145) mmol/L Potassium 3.5 (3.5-5.1) mmol/L Chloride 104 (98-107) mmol/L Carbon Dioxide 20 L (22-30) mmol/L Anion Gap 18 mmol/L BUN 21 H (7-17) mg/dL Creatinine 0.71 (0.52-1.04) mg/dL Est GFR (CKD-EPI)AfAm >90 (>60 ml/min/1.73 sqM) Est GFR (CKD-EPI)NonAf >90 (>60 ml/min/1.73 sqM) Glucose 127 H (74-99) mg/dL Plasma Lactic Acid Zaid (0.7-2.0) mmol/L Calcium 10.7 H (8.4-10.2) mg/dL Total Bilirubin 0.7 (0.2-1.3) mg/dL AST 30 (14-36) U/L ALT 56 H (4-34) U/L Alkaline Phosphatase 169 H (38-126) U/L Total Protein 8.8 H (6.3-8.2) g/dL Albumin 5.6 H (3.5-5.0) g/dL Amylase 59 (30-110) U/L Lipase 40 (23-300) U/L Urine Color Yellow Urine Appearance Cloudy H (Clear) Urine pH 6.0 (5.0-8.0) Ur Specific [place] 1.031 (1.001-1.035) Urine Protein 3+ H (Negative) Urine Glucose (UA) Negative (Negative) Urine Ketones 3+ H (Negative) Urine Blood Moderate H (Negative) Urine Nitrite Negative (Negative) Urine Bilirubin Negative (Negative) Urine Urobilinogen <2.0 (<2.0) mg/dL Ur Leukocyte Esterase Trace H (Negative) Urine RBC 3 (0-5) /hpf Urine WBC 6 H (0-5) /hpf Ur Squamous Epith Cells 2 (0-4) /hpf Amorphous Sediment Occasional H (None) /hpf Urine Mucus Moderate H (None) /hpf 02/27/21 Range/Units 16:24 WBC (3.8-10.6) k/uL RBC (3.80-5.40) m/uL Hgb (11.4-16.0) gm/dL Hct (34.0-46.0) % MCV (80.0-100.0) fL MCH (25.0-35.0) pg MCHC (31.0-37.0) g/dL RDW (11.5-15.5) % Plt Count (150-450) k/uL MPV Neutrophils % % Lymphocytes % % Monocytes % % Eosinophils % % Basophils % % Neutrophils # (1.3-7.7) k/uL Lymphocytes # (1.0-4.8) k/uL Monocytes # (0-1.0) k/uL Eosinophils # (0-0.7) k/uL Basophils # (0-0.2) k/uL Sodium (137-145) mmol/L Potassium (3.5-5.1) mmol/L Chloride (98-107) mmol/L Carbon Dioxide (22-30) mmol/L Anion Gap mmol/L BUN (7-17) mg/dL Creatinine (0.52-1.04) mg/dL Est GFR (CKD-EPI)AfAm (>60 ml/min/1.73 sqM) Est GFR (CKD-EPI)NonAf (>60 ml/min/1.73 sqM) Glucose (74-99) mg/dL Plasma Lactic Acid Zaid 1.6 (0.7-2.0) mmol/L Calcium (8.4-10.2) mg/dL Total Bilirubin (0.2-1.3) mg/dL AST (14-36) U/L ALT (4-34) U/L Alkaline Phosphatase (38-126) U/L Total Protein (6.3-8.2) g/dL Albumin (3.5-5.0) g/dL Amylase (30-110) U/L Lipase (23-300) U/L Urine Color Urine Appearance (Clear) Urine pH (5.0-8.0) Ur Specific [place] (1.001-1.035) Urine Protein (Negative) Urine Glucose (UA) (Negative) Urine Ketones (Negative) Urine Blood (Negative) Urine Nitrite (Negative) Urine Bilirubin (Negative) Urine Urobilinogen (<2.0) mg/dL Ur Leukocyte Esterase (Negative) Urine RBC (0-5) /hpf Urine WBC (0-5) /hpf Ur Squamous Epith Cells (0-4) /hpf Amorphous Sediment (None) /hpf Urine Mucus (None) /hpf Disposition Clinical Impression: Nausea vomiting and diarrhea, Abdominal pain Disposition: HOME SELF-CARE Condition: Stable Instructions (If sedation given, give patient instructions): Abdominal Pain (ED) Additional Instructions: Please return to the Emergency Department if symptoms worsen or any other concerns. Continue with your at home medications as needed. Recommend following up with your GI physician. Is patient prescribed a controlled substance at d/c from ED?: No Referrals: Digna Alonso MD [Primary Care Provider] - 1-2 days Hill Rousseau MD [STAFF PHYSICIAN] - 1-2 days Time of Disposition: 19:10
[2021-02-27 16:48] LABS: Amorphous Sediment,Urine Occasional /hpf; Appearance,Urine Cloudy (Clear); Bilirubin,Urine Negative (Negative); Blood,Urine Moderate (Negative); Color,Urine Yellow; Glucose,Urine (UA) Negative (Negative); Ketones,Urine 3+ (Negative); Leukocyte Esterase,Urine Trace (Negative); Mucus,Urine Moderate /hpf; Nitrite,Urine Negative (Negative); Protein,Urine 3+ (Negative); RBC,Urine 3 /hpf (0-5); Specific Gravity,Urine 1.031 (1.001-1.035); Squamous Epithelial Cell,Urine 2 /hpf (0-4); Urobilinogen,Urine <2.0 mg/dL (<2.0); WBC,Urine 6 /hpf (0-5)
[2021-02-27 16:51] LABS: Albumin 5.6 g/dL (3.5-5.0); Amylase 59 U/L (30-110); Chloride 104 mmol/L (98-107); Glucose 127 mg/dL (74-99); Potassium 3.5 mmol/L (3.5-5.1); Sodium 142 mmol/L (137-145); Total Protein 8.8 g/dL (6.3-8.2)
[2021-02-27 16:52] LABS: ALT 56 U/L (4-34); AST 30 U/L (14-36); African American GFR (CKD) >90 (>60 ml/min/1.73 sqM); Alkaline Phosphatase 169 U/L (38-126); Anion Gap 18 mmol/L; Blood Urea Nitrogen 21 mg/dL (7-17); Calcium 10.7 mg/dL (8.4-10.2); Carbon Dioxide 20 mmol/L (22-30); Lipase 40 U/L (23-300); Non-African American GFR(CKD) >90 (>60 ml/min/1.73 sqM); Total Bilirubin 0.7 mg/dL (0.2-1.3)
[2021-02-27] MEDS ORDERED: SODIUM CHLORIDE 0.9% 500 ML 500 ML IV STA (16:58)
[2021-02-27 17:25] VITALS: RESP 18
[2021-02-27] MEDS ORDERED: METOCLOPRAMIDE 5 MG/ML 2 ML VIAL IVP STA (17:28)
[2021-02-27] MEDS ORDERED: diphenhydrAMINE 50 MG/ML 1 ML VIAL IVP STA (18:19)
[2021-02-27 18:33] VITALS: BP 157/92; PULSE 83
== END 2021-02-27 19:42 | disposition home or self-care (01) ==
LOC: EC 15:26
DX: R10.9 Unspecified abdominal pain (principal); R11.2 Nausea with vomiting, unspecified; R19.7 Diarrhea, unspecified; M79.7 Fibromyalgia; E07.9 Disorder of thyroid, unspecified; Z90.710 Acquired absence of both cervix and uterus; Z87.891 Personal history of nicotine dependence; F12.90 Cannabis use, unspecified, uncomplicated
CPT/HCPCS: 36415; 80053; 82150; 83605; 83690; 85025; 81001; 99284; 96374; 96375 ×4; 96361 ×2; 96372; J1200; J0500; J2765; J2405; J1885; C9113

== ENCOUNTER 2021-02-28 09:43 | Observation (INO) | payer MEDICARE, OTHER ==
[2021-02-28] MEDS ORDERED: PANTOPRAZOLE 40 MG/10 ML VIAL IVP STA (10:18)
[2021-02-28] MEDS ORDERED: SODIUM CHLORIDE 0.9% 1,000 ML IV STA (10:18)
[2021-02-28] MEDS ORDERED: ONDANSETRON 4 MG/2 ML VIAL IVP STA (10:18)
[2021-02-28] MEDS ORDERED: HYDROmorphone 1 MG/ML 1 ML SYRINGE IVP STA (10:29)
[2021-02-28] MEDS ORDERED: DICYCLOMINE 10 MG/ML 2 ML AMP IM STA (10:29)
[2021-02-28 11:22] LABS: Basophils # (A) 0.1 k/uL (0-0.2); Basophils % (A) 0 %; Eosinophils % (A) 0 %; HCT 41.4 % (34.0-46.0); HGB 14.3 gm/dL (11.4-16.0); Lymphocytes # (A) 2.8 k/uL (1.0-4.8); Lymphocytes % (A) 17 %; MCH 30.2 pg (25.0-35.0); MCHC 34.6 g/dL (31.0-37.0); MCV 87.3 fL (80.0-100.0); Mean Platelet Volume 7.1; Monocytes # (A) 0.7 k/uL (0-1.0); Monocytes % (A) 4 %; Neutrophils # (A) 12.4 k/uL (1.3-7.7); Neutrophils % (A) 77 %; Platelet Count 285 k/uL (150-450); RBC 4.74 m/uL (3.80-5.40); RDW 13.5 % (11.5-15.5); WBC 16.1 k/uL (3.8-10.6)
[2021-02-28 11:30] LABS: ALT 50 U/L (4-34); AST 45 U/L (14-36); African American GFR (CKD) >90 (>60 ml/min/1.73 sqM); Albumin 5.1 g/dL (3.5-5.0); Alkaline Phosphatase 143 U/L (38-126); Amylase 63 U/L (30-110); Anion Gap 13 mmol/L; Blood Urea Nitrogen 18 mg/dL (7-17); Calcium 10.3 mg/dL (8.4-10.2); Carbon Dioxide 22 mmol/L (22-30); Chloride 104 mmol/L (98-107); Glucose 113 mg/dL (74-99); Lipase 72 U/L (23-300); Non-African American GFR(CKD) >90 (>60 ml/min/1.73 sqM); Potassium 3.5 mmol/L (3.5-5.1); Sodium 139 mmol/L (137-145); Total Bilirubin 0.9 mg/dL (0.2-1.3); Total Protein 7.9 g/dL (6.3-8.2)
[2021-02-28 11:46] LABS: Appearance,Urine Clear (Clear); Bilirubin,Urine Negative (Negative); Blood,Urine Trace (Negative); Color,Urine Yellow; Glucose,Urine (UA) Negative (Negative); Hyaline Casts,Urine 1 /lpf (0-2); Ketones,Urine 4+ (Negative); Leukocyte Esterase,Urine Negative (Negative); Mucus,Urine Rare /hpf; Nitrite,Urine Negative (Negative); Protein,Urine 1+ (Negative); RBC,Urine 4 /hpf (0-5); Specific Gravity,Urine 1.026 (1.001-1.035); Squamous Epithelial Cell,Urine 3 /hpf (0-4); Urobilinogen,Urine <2.0 mg/dL (<2.0); WBC,Urine 5 /hpf (0-5)
[2021-02-28] MEDS ORDERED: METOCLOPRAMIDE 5 MG/ML 2 ML VIAL IVP STA (12:06)
[2021-02-28] MEDS ORDERED: diphenhydrAMINE 50 MG/ML 1 ML VIAL IVP STA (12:06)
[2021-02-28] MEDS ORDERED: ONDANSETRON 4 MG/2 ML VIAL IVP PRN (12:12)
[2021-02-28] MEDS ORDERED: NALOXONE 0.4 MG/ML 1 ML VIAL IV PRN (12:12)
[2021-02-28] MEDS ORDERED: LORazepam 2 MG/ML INJ IV PRN (12:12)
--- NOTE | 2021-02-28 12:12 | ED ---
Abdominal Pain HPI - General Chief Complaint: Abdominal Pain Stated Complaint: IBS flare up, Revisit Time Seen by Provider: 02/28/21 10:17 Source: patient Mode of arrival: ambulatory Limitations: no limitations - History of Present Illness Initial Comments: 40-year-old female presents to the emergency department the chief complaint of an IBS flare. Patient reports is typical for her and occur periodically throughout the beer. Patient reports she isn't experiencing multiple episodes of nausea or vomiting. Nonbloody and nonbilious. She also reports occasional diarrhea as well. States she is concerned for dehydration which typically occurs for her. Status feels it a typical IBS flare. States she is occasionally admitted to the hospital for intractable nausea and vomiting. She also reports diffuse abdominal pain. States she was seen in emergency department yesterday and discharged but her symptoms persisted after discharge. She denies any fevers or chills. She denies any vaginal urinary symptoms. Denies any hematuria, hematochezia or melena. - Related Data Home Medications Medication Instructions Recorded Confirmed HYDROcodone/APAP 10-325MG [[place] 1 tab PO QID 04/03/17 02/28/21 10-325] Loratadine [Claritin] 10 mg PO DAILY 04/03/17 02/28/21 Ergocalciferol [Vitamin D2 50,000 unit PO BENOIT 02/13/20 02/28/21 (DRISDOL)] Dicyclomine [Bentyl] 20 mg PO TID PRN 06/11/20 02/28/21 Pantoprazole Sodium [Protonix] 40 mg PO BID 06/11/20 02/28/21 FLUoxetine HCL [PROzac] 20 mg PO DAILY 09/28/20 02/28/21 ALPRAZolam [Xanax] 0.125 - 0.25 mg PO DAILY PRN 09/29/20 02/28/21 Rimegepant Sulfate [Nurtec Odt] 75 mg PO Q48H PRN 09/29/20 02/28/21 Ondansetron [Zofran ODT] 4 mg PO Q8H PRN 11/17/20 02/28/21 Allergies Allergy/AdvReac Type Severity Reaction Status Date / Time propoxyphene Allergy Rash/Hives Verified 02/28/21 10:55 [From Sissy] Review of Systems ROS Statement: Those systems with pertinent positive or pertinent negative responses have been documented in the HPI. ROS Other: All systems not noted in ROS Statement are negative. Past Medical History Past Medical History: Fibromyalgia, Thyroid Disorder Additional Past Medical History / Comment(s): DDD, bulging discs, neuropathy in legs, thyroid nodules, anemia, environmental allergies, constipation/diarrhea, IBS diagnosed in 2019, chronic gastritis. History of Any Multi-Drug Resistant Organisms: None Reported Past Surgical History: Hysterectomy, Orthopedic Surgery Additional Past Surgical History / Comment(s): Right wrist and forearm surgery, D&C, mass on vocal cords - surgery and biopsy. Past Anesthesia/Blood Transfusion Reactions: Postoperative Nausea & Vomiting (PONV) Additional Past Anesthesia/Blood Transfusion Reaction / Comment(s): Constipation post-op. Past Psychological History: Anxiety Smoking Status: Former smoker Past Alcohol Use History: None Reported Past Drug Use History: Marijuana - Past Family History Mother Family Medical History: No Reported History Father Additional Family Medical History / Comment(s): "Cardiovascular swelling". General Exam Limitations: no limitations General appearance: alert, in no apparent distress Head exam: Present: atraumatic, normocephalic, normal inspection Eye exam: Present: normal appearance, PERRL, EOMI Pupils: Present: normal accommodation ENT exam: Present: normal exam, normal oropharynx, mucous membranes dry Neck exam: Present: normal inspection, full ROM. Absent: tenderness Respiratory exam: Present: normal lung sounds bilaterally. Absent: respiratory distress Cardiovascular Exam: Present: regular rate, normal rhythm, normal heart sounds. Absent: systolic murmur GI/Abdominal exam: Present: soft, tenderness (Diffuse abdominal tenderness). Absent: distended, guarding, rigid Extremities exam: Present: normal inspection, full ROM, normal capillary refill. Absent: tenderness, pedal edema, joint swelling Back exam: Present: normal inspection, full ROM. Absent: tenderness, CVA tenderness (R), CVA tenderness (L) Neurological exam: Present: alert, oriented X3 Psychiatric exam: Present: normal affect, normal mood Skin exam: Present: warm, dry, intact, normal color Course Vital Signs 02/28/21 02/28/21 09:54 11:43 Temperature 98.2 F Pulse Rate 74 64 Respiratory 20 19 Rate Blood Pressure 151/79 118/73 O2 Sat by Pulse 99 96 Oximetry Medical Decision Making - Medical Decision Making 40-year-old female history of IBS presents to emergency department with a chief complaint of an IBS flare. On physical examination, patient does appear to be clinically dehydrated. Urine plus 4ketones. Elevated BUN. CBC revealed a leukocytosis, likely reactive from the vomiting. Patient was given IV fluids, Bentyl, Protonix, Zofran. On reevaluation, she reports some improvement in symptoms, however she still nauseous. She was given Reglan and Benadryl. Patient was again reevaluated with some improvement in symptoms but she was still nauseous. Patient will be admitted for intractable nausea or vomiting. I discussed the case with who will admit. Case discussed with Dr crockett GI consult - Lab Data Result diagrams: 02/28/21 11:09 02/28/21 11:09 Lab Results 02/28/21 02/28/21 02/28/21 Range/Units 11:09 11:09 11:09 WBC 16.1 H (3.8-10.6) k/uL RBC 4.74 (3.80-5.40) m/uL Hgb 14.3 (11.4-16.0) gm/dL Hct 41.4 (34.0-46.0) % MCV 87.3 (80.0-100.0) fL MCH 30.2 (25.0-35.0) pg MCHC 34.6 (31.0-37.0) g/dL RDW 13.5 (11.5-15.5) % Plt Count 285 (150-450) k/uL MPV 7.1 Neutrophils % 77 % Lymphocytes % 17 % Monocytes % 4 % Eosinophils % 0 % Basophils % 0 % Neutrophils # 12.4 H (1.3-7.7) k/uL Lymphocytes # 2.8 (1.0-4.8) k/uL Monocytes # 0.7 (0-1.0) k/uL Eosinophils # 0.0 (0-0.7) k/uL Basophils # 0.1 (0-0.2) k/uL Sodium (137-145) mmol/L Potassium (3.5-5.1) mmol/L Chloride (98-107) mmol/L Carbon Dioxide (22-30) mmol/L Anion Gap mmol/L BUN (7-17) mg/dL Creatinine (0.52-1.04) mg/dL Est GFR (CKD-EPI)AfAm (>60 ml/min/1.73 sqM) Est GFR (CKD-EPI)NonAf (>60 ml/min/1.73 sqM) Glucose (74-99) mg/dL Calcium (8.4-10.2) mg/dL Total Bilirubin (0.2-1.3) mg/dL AST (14-36) U/L ALT (4-34) U/L Alkaline Phosphatase (38-126) U/L Total Protein (6.3-8.2) g/dL Albumin (3.5-5.0) g/dL Amylase (30-110) U/L Lipase (23-300) U/L Urine Color Yellow Urine Appearance Clear (Clear) Urine pH 7.0 (5.0-8.0) Ur Specific Preston 1.026 (1.001-1.035) Urine Protein 1+ H (Negative) Urine Glucose (UA) Negative (Negative) Urine Ketones 4+ H (Negative) Urine Blood Trace H (Negative) Urine Nitrite Negative (Negative) Urine Bilirubin Negative (Negative) Urine Urobilinogen <2.0 (<2.0) mg/dL Ur Leukocyte Esterase Negative (Negative) Urine RBC 4 (0-5) /hpf Urine WBC 5 (0-5) /hpf Ur Squamous Epith Cells 3 (0-4) /hpf Hyaline Casts 1 (0-2) /lpf Urine Mucus Rare H (None) /hpf Urine HCG, Qual Not Detected (Not Detectd) 02/28/21 Range/Units 11:09 WBC (3.8-10.6) k/uL RBC (3.80-5.40) m/uL Hgb (11.4-16.0) gm/dL Hct (34.0-46.0) % MCV (80.0-100.0) fL MCH (25.0-35.0) pg MCHC (31.0-37.0) g/dL RDW (11.5-15.5) % Plt Count (150-450) k/uL MPV Neutrophils % % Lymphocytes % % Monocytes % % Eosinophils % % Basophils % % Neutrophils # (1.3-7.7) k/uL Lymphocytes # (1.0-4.8) k/uL Monocytes # (0-1.0) k/uL Eosinophils # (0-0.7) k/uL Basophils # (0-0.2) k/uL Sodium 139 (137-145) mmol/L Potassium 3.5 (3.5-5.1) mmol/L Chloride 104 (98-107) mmol/L Carbon Dioxide 22 (22-30) mmol/L Anion Gap 13 mmol/L BUN 18 H (7-17) mg/dL Creatinine 0.52 (0.52-1.04) mg/dL Est GFR (CKD-EPI)AfAm >90 (>60 ml/min/1.73 sqM) Est GFR (CKD-EPI)NonAf >90 (>60 ml/min/1.73 sqM) Glucose 113 H (74-99) mg/dL Calcium 10.3 H (8.4-10.2) mg/dL Total Bilirubin 0.9 (0.2-1.3) mg/dL AST 45 H (14-36) U/L ALT 50 H (4-34) U/L Alkaline Phosphatase 143 H (38-126) U/L Total Protein 7.9 (6.3-8.2) g/dL Albumin 5.1 H (3.5-5.0) g/dL Amylase 63 (30-110) U/L Lipase 72 (23-300) U/L Urine Color Urine Appearance (Clear) Urine pH (5.0-8.0) Ur Specific Preston (1.001-1.035) Urine Protein (Negative) Urine Glucose (UA) (Negative) Urine Ketones (Negative) Urine Blood (Negative) Urine Nitrite (Negative) Urine Bilirubin (Negative) Urine Urobilinogen (<2.0) mg/dL Ur Leukocyte Esterase (Negative) Urine RBC (0-5) /hpf Urine WBC (0-5) /hpf Ur Squamous Epith Cells (0-4) /hpf Hyaline Casts (0-2) /lpf Urine Mucus (None) /hpf Urine HCG, Qual (Not Detectd) Disposition Clinical Impression: Abdominal pain, Intractable vomiting with nausea Disposition: ADMITTED IP TO THIS HOSP Condition: Fair Is patient prescribed a controlled substance at d/c from ED?: No Referrals: Digna Alonso MD [Primary Care Provider] - 1-2 days Time of Disposition: 12:21
[2021-02-28] MEDS: SODIUM CHLORIDE 0.9% 1,000 ML IV SCH ×2 (12:24→23:20)
[2021-02-28] MEDS: HYDROmorphone 1 MG/ML 1 ML SYRINGE IVP PRN ×3 (14:35→23:14)
[2021-02-28] MEDS: DICYCLOMINE 20 MG TAB PO PRN (17:50)
[2021-02-28] MEDS: PANTOPRAZOLE 40 MG/10 ML VIAL IVP SCH (20:17)
[2021-02-28] MEDS: HEPARIN SODIUM,PORCINE/PF 5,000 UNIT/0.5 ML SYRINGE SQ SCH (23:09)
[2021-03-01] MEDS: HYDROmorphone 1 MG/ML 1 ML SYRINGE IVP PRN ×2 (08:04→12:29)
[2021-03-01] MEDS: HEPARIN SODIUM,PORCINE/PF 5,000 UNIT/0.5 ML SYRINGE SQ SCH ×2 (08:05→16:29)
[2021-03-01] MEDS: PANTOPRAZOLE 40 MG/10 ML VIAL IVP SCH (08:07)
[2021-03-01] MEDS ORDERED: FLUoxetine HCL 20 MG CAP PO SCH (09:00)
--- NOTE | 2021-03-01 11:19 | P.HPIM ---
History of Present Illness H&P Date: 02/28/21 Chief Complaint: Abdominal pain Patient is a 40-year-old female with a known history of fibromyalgia, IBS diagnosed in 2019, hypothyroidism, degenerative disc this is, anemia and anxiety and history of marijuana use and also prior history of smoking presents to ER with complaints of IBS flare. Patient states that she has been having abdominal pain mainly around umbilicus for the past 2 days and is getting worse patient did take her home medications of Bentyl and Protonix and other pain medications. Did not relieve her symptoms which made her come to ER. Denied any fever or chills. Denied any diarrhea. Patient has constipation. No complaints of headache or dizziness or lightheadedness. Patient has been having nausea and episodes of vomiting. Laboratory data showed WBC 16.1, hemoglobin 14.3 and platelets 285 BUE and 18 and creatinine 0.5 to Calcium 10.3, AST 45 ALT 50 and alk phos 143 Lipase 72 Urinalysis showed 4+ ketones and nitrite negative and leukocyte esterase negative. Blood pressure 112/62 pulse is 74, respirations 16 pulse ox 100% on room air. Review of Systems Constitutional: Patient denies any fever or chills . No generalized weakness or weight loss. Abdomen: Patient does have abdominal pain, nausea. No sinus or vomiting. No diarrhea. Positive constipation.. Cardiovascular: Patient denies any chest pain or short of breath no palpitations. Respiratory: patient denied any cough is from production. No shortness of breath Neurologic: Patient denied any numbness or tingling headache. Musculoskeletal: Patient denies any complaints of joint swelling or deformity. Skin: Negative Psychiatric: Negative Endocrine: No heat or cold intolerance. No recent weight gain. Genitourinary: No dysuria or hematuria. All other 14 point ROS negative except the above Past Medical History Past Medical History: Fibromyalgia, Thyroid Disorder Additional Past Medical History / Comment(s): DDD, bulging discs, neuropathy in legs, thyroid nodules, anemia, environmental allergies, constipation/diarrhea, IBS diagnosed in 2019, chronic gastritis. History of Any Multi-Drug Resistant Organisms: None Reported Past Surgical History: Hysterectomy, Orthopedic Surgery Additional Past Surgical History / Comment(s): Right wrist and forearm surgery, D&C, mass on vocal cords - surgery and biopsy. Past Anesthesia/Blood Transfusion Reactions: Postoperative Nausea & Vomiting (PONV) Additional Past Anesthesia/Blood Transfusion Reaction / Comment(s): Constipation post-op. Past Psychological History: Anxiety Smoking Status: Never smoker Past Alcohol Use History: None Reported Additional Past Alcohol Use History / Comment(s): Quit smoking in 2019, history of 1 PPD. Started smoking at age 14. Pt vapes and smokes marajuana Past Drug Use History: Marijuana Additional Drug Use History / Comment(s): States she hasn't smoked in a few days. - Past Family History Mother Family Medical History: No Reported History Father Additional Family Medical History / Comment(s): "Cardiovascular swelling". Medications and Allergies Home Medications Medication Instructions Recorded Confirmed Type HYDROcodone/APAP 10-325MG [[place] 1 tab PO QID 04/03/17 02/28/21 History 10-325] Loratadine [Claritin] 10 mg PO DAILY 04/03/17 02/28/21 History Ergocalciferol [Vitamin D2 50,000 unit PO BENOIT 02/13/20 02/28/21 History (DRISDOL)] Dicyclomine [Bentyl] 20 mg PO TID PRN 06/11/20 02/28/21 History Pantoprazole Sodium [Protonix] 40 mg PO BID 06/11/20 02/28/21 History FLUoxetine HCL [PROzac] 20 mg PO DAILY 09/28/20 02/28/21 History ALPRAZolam [Xanax] 0.125 - 0.25 mg PO DAILY PRN 09/29/20 02/28/21 History Rimegepant Sulfate [Nurtec Odt] 75 mg PO Q48H PRN 09/29/20 02/28/21 History Ondansetron [Zofran ODT] 4 mg PO Q8H PRN 11/17/20 02/28/21 History Allergies Allergy/AdvReac Type Severity Reaction Status Date / Time propoxyphene Allergy Rash/Hives Verified 02/28/21 10:55 [From Sissy] Physical Exam Vitals: Vital Signs Temp Pulse Pulse Resp BP BP Pulse Ox 02/28/21 13:51 16 02/28/21 13:47 97.9 F 74 16 112/62 100 02/28/21 11:43 64 19 118/73 96 02/28/21 09:54 98.2 F 74 20 151/79 99 Intake and Output 0702/28/21 02/28/21 06:59 14:59 22:59 Other: Voiding Method Toilet Weight 73.8 kg PHYSICAL EXAMINATION: Patient is lying in the bed comfortably, no acute distress, awake alert and oriented.. HEENT: Normocephalic. Neck is supple. Pupils reactive. Nostrils clear. Oral cavity is moist. Neck reveals no JVD, carotid bruits, or thyromegaly. CHEST EXAMINATION: Trachea is central. Symmetrical expansion. Lung sullivan clear to auscultation and percussion. CARDIAC: Normal S1, S2 with no gallops. No murmurs ABDOMEN: Soft. Mild upper abdominal tenderness. No guarding or rigidity. Bowel sounds normal. No organomegaly. No abdominal bruits. Extremities: reveal no edema. No clubbing or cyanosis Neurologically awake, alert, oriented x3 with well-coordinated movements. No focal deficits noted Skin: No rash or skin lesions. Psychiatric: Coperative. Nonsuicidal Musculoskeletal: No joint swelling or deformity. Normal range of motion. Results CBC & Chem 7: 02/28/21 11:09 02/28/21 11:09 Labs: Abnormal Lab Results - Last 24 Hours (Table) 02/28/21 02/28/21 02/28/21 Range/Units 11:09 11:09 11:09 WBC 16.1 H (3.8-10.6) k/uL Neutrophils # 12.4 H (1.3-7.7) k/uL BUN 18 H (7-17) mg/dL Glucose 113 H (74-99) mg/dL Calcium 10.3 H (8.4-10.2) mg/dL AST 45 H (14-36) U/L ALT 50 H (4-34) U/L Alkaline Phosphatase 143 H (38-126) U/L Albumin 5.1 H (3.5-5.0) g/dL Urine Protein 1+ H (Negative) Urine Ketones 4+ H (Negative) Urine Blood Trace H (Negative) Urine Mucus Rare H (None) /hpf Thrombosis Risk Factor Assmnt - DVT/VTE Prophylaxis DVT/VTE Prophylaxis: Pharmacologic Prophylaxis ordered - Choose All That Apply Each Factor Represents 1 point: Age 41-60 years, Hx of IBD, Obesity (BMI >25) Other congenital or acquired thrombophilia - If yes, enter type in comment: No Thrombosis Risk Factor Assessment Total Risk Factor Score: 3 Thrombosis Risk Factor Assessment Level: Moderate Risk Assessment and Plan Assessment: Abdominal pain secondary to IBS flare. Intractable nausea and vomiting. Leukocytosis. No evidence of infection. Elevated liver enzymes Fibromyalgia Chronic pain Degenerative disc disease Bilateral peripheral neuropathy nondiabetic Constipation/diarrhea LITERALLY IBS diagnosed in 2019 Chronic gastritis Anxiety Marijuana use Patient history of smoking Plan: Patient will be continued on IV hydration support medical management for nausea and vomiting. Continue with IV Protonix and IV Zofran. Bentyl was started back on. Continue to follow closely and GI was consulted. Replace electrolyte. Follow-up CBC and BMP tomorrow. Time with Patient: Greater than 30
[2021-03-01 11:46] LABS: Basophils # (A) 0.1 k/uL (0-0.2); Basophils % (A) 1 %; Eosinophils # (A) 0.1 k/uL (0-0.7); Eosinophils % (A) 1 %; HCT 34.3 % (34.0-46.0); HGB 12.5 gm/dL (11.4-16.0); Lymphocytes # (A) 3.4 k/uL (1.0-4.8); Lymphocytes % (A) 32 %; MCH 32.2 pg (25.0-35.0); MCHC 36.3 g/dL (31.0-37.0); MCV 88.7 fL (80.0-100.0); Monocytes # (A) 0.4 k/uL (0-1.0); Monocytes % (A) 4 %; Neutrophils # (A) 6.4 k/uL (1.3-7.7); Neutrophils % (A) 62 %; Platelet Count 221 k/uL (150-450); RBC 3.86 m/uL (3.80-5.40); WBC 10.4 k/uL (3.8-10.6)
[2021-03-01 11:57] LABS: ALT 34 U/L (4-34); AST 26 U/L (14-36); African American GFR (CKD) >90 (>60 ml/min/1.73 sqM); Albumin 3.7 g/dL (3.5-5.0); Alkaline Phosphatase 93 U/L (38-126); Anion Gap 5 mmol/L; Blood Urea Nitrogen 12 mg/dL (7-17); Calcium 8.8 mg/dL (8.4-10.2); Carbon Dioxide 27 mmol/L (22-30); Chloride 108 mmol/L (98-107); Glucose 102 mg/dL (74-99); Non-African American GFR(CKD) >90 (>60 ml/min/1.73 sqM); Potassium 3.4 mmol/L (3.5-5.1); Sodium 140 mmol/L (137-145); Total Bilirubin 0.3 mg/dL (0.2-1.3)
[2021-03-01] MEDS: DICYCLOMINE 20 MG TAB PO PRN (12:29)
[2021-03-01 15:06] VITALS: BP 105/67; PULSE 63; RESP 16; TEMP 98.1
[2021-03-01] MEDS: SODIUM CHLORIDE 0.9% 1,000 ML IV SCH (15:12)
--- NOTE | 2021-03-01 16:25 | P.CONS ---
History of Present Illness - Reason for Consult Consult date: 03/01/21 Nausea, vomiting Requesting physician: Nina Israel - Chief Complaint Nausea and vomiting - History of Present Illness 40-year-old female with a medical history significant for irritable bowel syndrome with multiple prior hospitalizations due to complaints of nausea and vomiting as well as fibromyalgia, hypothyroidism, peripheral neuropathy, anxiety, marijuana use in degenerative disc disease who presented to the hospital for intractable nausea and vomiting. She reports waking up with nausea and subsequently having multiple episodes of vomiting since Sunday. She is denying any abdominal pain, states the nausea and vomiting have improved. She denies any signs or symptoms of GI bleeding. The patient has undergone evaluation of her symptoms in the past with EGD and colonoscopyin 01/2020 with findings of mild gastritis and mild ileitis with no evidence of inflammatory changes found on biopsies of the ileum or colon. The patient takes Protonix and Bentyl at home as well as Zofran as needed. Laboratory evaluation significant for 16.1, hemoglobin 14.3, the count 285,000, total bilirubin 0.9, alkaline phosphatase 143, AST 45, ALT 50. She denies any recent sick contacts, strain from her diet, her increased stress. Symptoms have improved, she tolerated some crackers this morning is able to keep fluids down. Review of Systems REVIEW OF SYSTEMS: CARDIOPULMONARY: No chest pain or shortness of breath. Gastrointestinal: No abdominal pain. Had multiple episodes of vomiting prior to presentation, symptoms improved. No hematemesis, coffee-ground emesis. No rectal bleeding, or melena. GENITOURINARY: No dysuria or hematuria. MUSCULOSKELETAL: Reports normal range of motion., Joint pain. SKIN: No rashes. No jaundice. ENDOCRINE: No chills, fevers. No excessive weight gain or loss. No polydipsia or polyuria. PSYCHIATRIC: Unremarkable. NEUROLOGY: No change in mental status. Denies dizziness, headache. ENT: Vision unremarkable. CONSTITUTIONAL: No recent weight loss. No fever, chills, night sweats. Past Medical History Past Medical History: Fibromyalgia, Thyroid Disorder Additional Past Medical History / Comment(s): DDD, bulging discs, neuropathy in legs, thyroid nodules, anemia, environmental allergies, constipation/diarrhea, IBS diagnosed in 2019, chronic gastritis. History of Any Multi-Drug Resistant Organisms: None Reported Past Surgical History: Hysterectomy, Orthopedic Surgery Additional Past Surgical History / Comment(s): Right wrist and forearm surgery, D&C, mass on vocal cords - surgery and biopsy. Past Anesthesia/Blood Transfusion Reactions: Postoperative Nausea & Vomiting (PONV) Additional Past Anesthesia/Blood Transfusion Reaction / Comm: Constipation post- op. Past Psychological History: Anxiety Smoking Status: Never smoker Past Alcohol Use History: None Reported Additional Past Alcohol Use History / Comment(s): Quit smoking in 2019, history of 1 PPD. Started smoking at age 14. Pt vapes and smokes marajuana Past Drug Use History: Marijuana Additional Drug Use History / Comment(s): States she hasn't smoked in a few days. - Past Family History Mother Family Medical History: No Reported History Father Additional Family Medical History / Comment(s): "Cardiovascular swelling". Medications and Allergies Home Medications Medication Instructions Recorded Confirmed Type HYDROcodone/APAP 10-325MG [[place] 1 tab PO QID 04/03/17 02/28/21 History 10-325] Loratadine [Claritin] 10 mg PO DAILY 04/03/17 02/28/21 History Ergocalciferol [Vitamin D2 50,000 unit PO BENOIT 02/13/20 02/28/21 History (DRISDOL)] Dicyclomine [Bentyl] 20 mg PO TID PRN 06/11/20 02/28/21 History Pantoprazole Sodium [Protonix] 40 mg PO BID 06/11/20 02/28/21 History FLUoxetine HCL [PROzac] 20 mg PO DAILY 09/28/20 02/28/21 History ALPRAZolam [Xanax] 0.125 - 0.25 mg PO DAILY PRN 09/29/20 02/28/21 History Rimegepant Sulfate [Nurtec Odt] 75 mg PO Q48H PRN 09/29/20 02/28/21 History Ondansetron [Zofran ODT] 4 mg PO Q8H PRN 11/17/20 02/28/21 History Prochlorperazine Suppository 25 mg RECTAL BID #30 supp 03/01/21 Rx [Compazine] Allergies Allergy/AdvReac Type Severity Reaction Status Date / Time propoxyphene Allergy Rash/Hives Verified 02/28/21 10:55 [From Sissy] Physical Exam Vitals: Vital Signs Temp Pulse Pulse Pulse Resp BP BP 03/01/21 08:00 98.8 F 74 18 123/78 03/01/21 01:48 98 F 55 L 16 99/63 02/28/21 20:00 98.6 F 68 17 109/68 02/28/21 13:51 16 02/28/21 13:47 97.9 F 74 16 112/62 02/28/21 11:43 64 19 118/73 02/28/21 09:54 98.2 F 74 20 151/79 Pulse Ox 03/01/21 08:00 98 03/01/21 01:48 96 02/28/21 20:00 02/28/21 13:51 02/28/21 13:47 100 02/28/21 11:43 96 02/28/21 09:54 99 Intake and Output 02/28/21 03/01/21 03/01/21 22:59 06:59 14:59 Other: # Voids 1 1 1 General appearance: The patient is alert, oriented, appears in no acute distress. HET: Head is normocephalic and atraumatic. Conjunctiva pink. Sclera anicteric. Neck: Supple without lymphadenopathy. Trachea midline. Heart: S1 S2. Regular rate and rhythm. Lungs: Clear to auscultation. Abdomen: Soft, nontender, nondistended with bowel sounds. No guarding or rigidity. Skin: No rashes. No jaundice. Extremities: Normal skin color and turgor. No pedal edema. Neurological: No focal deficits. Alert and oriented 3.. Results CBC & Chem 7: 03/01/21 11:28 03/01/21 11:28 Labs: Abnormal Lab Results - Last 24 Hours (Table) 02/28/21 02/28/21 02/28/21 Range/Units 11:09 11:09 11:09 WBC 16.1 H (3.8-10.6) k/uL Neutrophils # 12.4 H (1.3-7.7) k/uL BUN 18 H (7-17) mg/dL Glucose 113 H (74-99) mg/dL Calcium 10.3 H (8.4-10.2) mg/dL AST 45 H (14-36) U/L ALT 50 H (4-34) U/L Alkaline Phosphatase 143 H (38-126) U/L Albumin 5.1 H (3.5-5.0) g/dL Urine Protein 1+ H (Negative) Urine Ketones 4+ H (Negative) Urine Blood Trace H (Negative) Urine Mucus Rare H (None) /hpf Assessment and Plan (1) Intractable vomiting with nausea Narrative/Plan: 40-year-old with history of IBS presented to the emergency department with complaints of intractable nausea and vomiting that began Sunday. Patient is prescribed Protonix, Bentyl, and Zofran at home. States she was still vomiting despite taking her Zofran. She denied any signs or symptoms of GI bleed, denied diarrhea, and abdominal pain. Last EGD and colonoscopy in January 2020 showing mild gastritis and mild ileitis. Patient was started on IV fluids and given IV Protonix and Zofran with improvement in her symptoms. She is tolerating both liquids and solids. Current Visit: Yes Status: Acute Code(s): R11.2 - NAUSEA WITH VOMITING, UNSPECIFIED SNOMED Code(s): 266916207 Plan: 1. Continue diet as tolerated 2. Continue Protonix 40 mg twice a day 3. Antiemetics as needed 4. Continue Bentyl as needed 5. Recommend trying Compazine per rectum as needed for home, prescription sent 6. No plans on EGD or colonoscopy 7. Patient may be discharged home from a gastroenterology standpoint, she will continue follow-up with gastroenterology as needed Thank you for this consultation, and allowing us take part in the plan of care of your patient. Dr. Rousseau I agree with the dictator's note, documented as a scribe by Nohemi Newberry.
--- NOTE | 2021-03-04 16:17 | P.DS ---
Providers Date of admission: 02/28/21 12:33 Expected date of discharge: 03/01/21 Attending physician: Nina Israel Consults: 02/28/21 12:13 Consult Physician Routine Consulting Provider: Hill Rousseau Consult Reason/Comments: Intractable nausea vomiting, ibs exacerbation Do you want consulting provider notified?: Yes Primary care physician: Gavin Sawyer Hospital Course: Discharge diagnosis Abdominal pain secondary to IBS flare. Intractable nausea and vomiting. Leukocytosis. No evidence of infection. Resolving now. Elevated liver enzymes Fibromyalgia Chronic pain Degenerative disc disease Bilateral peripheral neuropathy nondiabetic Constipation/diarrhea LITERALLY IBS diagnosed in 2019 Chronic gastritis Anxiety Marijuana use Patient history of smoking Hospital course Patient is a 40-year-old female with a known history of fibromyalgia, IBS diagnosed in 2019, hypothyroidism, degenerative disc this is, anemia and anxiety and history of marijuana use and also prior history of smoking presents to ER with complaints of IBS flare. Patient states that she has been having abdominal pain mainly around umbilicus for the past 2 days and is getting worse patient d id take her home medications of Bentyl and Protonix and other pain medications. Did not relieve her symptoms which made her come to ER. Denied any fever or chills. Denied any diarrhea. Patient has constipation. No complaints of headache or dizziness or lightheadedness. Patient has been having nausea and episodes of vomiting. Laboratory data showed WBC 16.1, hemoglobin 14.3 and platelets 285 BUE and 18 and creatinine 0.5 to Calcium 10.3, AST 45 ALT 50 and alk phos 143 Lipase 72 Urinalysis showed 4+ ketones and nitrite negative and leukocyte esterase negative. Blood pressure 112/62 pulse is 74, respirations 16 pulse ox 100% on room air. Patient was continued on IV hydration support medical management for nausea and vomiting. Continue with IV Protonix and IV Zofran. Bentyl was started back on. Continue to follow closely and GI was consulted. Replace electrolyte. Patient did improve clinically. Able to tolerate oral diet. Denied any abdominal pain today. WBC went down to 10.4. Replace potassium. Liver enzymes are normalized. Cleared from GI standpoint and is being discharged home today. PHYSICAL EXAMINATION: Patient is lying in the bed comfortably, no acute distress, awake alert and oriented.. HEENT: Normocephalic. Neck is supple. Pupils reactive. Nostrils clear. Oral cavity is moist. Neck reveals no JVD, carotid bruits, or thyromegaly. CHEST EXAMINATION: Trachea is central. Symmetrical expansion. Lung sullivan clear to auscultation and percussion. CARDIAC: Normal S1, S2 with no gallops. No murmurs ABDOMEN: Soft. Bowel sounds normal. No organomegaly. No abdominal bruits. Extremities: reveal no edema. No clubbing or cyanosis Neurologically awake, alert, oriented x3 with well-coordinated movements. No focal deficits noted Skin: No rash or skin lesions. Psychiatric: Coperative. Nonsuicidal Musculoskeletal: No joint swelling or deformity. Normal range of motion. Vitals: Vital Signs Temp Pulse Pulse Pulse Resp BP BP 03/01/21 08:00 98.8 F 74 18 123/78 03/01/21 01:48 98 F 55 L 16 99/63 02/28/21 20:00 98.6 F 68 17 109/68 02/28/21 13:51 16 02/28/21 13:47 97.9 F 74 16 112/62 02/28/21 11:43 64 19 118/73 02/28/21 09:54 98.2 F 74 20 151/79 Pulse Ox 03/01/21 08:00 98 03/01/21 01:48 96 02/28/21 20:00 02/28/21 13:51 02/28/21 13:47 100 02/28/21 11:43 96 02/28/21 09:54 99 Patient Condition at Discharge: Good Plan - Discharge Summary Discharge Rx Participant: No New Discharge Prescriptions: New Prochlorperazine Suppository [Compazine] 25 mg RECTAL BID #30 supp Continue Loratadine [Claritin] 10 mg PO DAILY HYDROcodone/APAP 10-325MG [[place] 10-325] 1 tab PO QID Ergocalciferol [Vitamin D2 (DRISDOL)] 50,000 unit PO BENOIT Pantoprazole Sodium [Protonix] 40 mg PO BID Dicyclomine [Bentyl] 20 mg PO TID PRN PRN Reason: IBS FLUoxetine HCL [PROzac] 20 mg PO DAILY ALPRAZolam [Xanax] 0.125 - 0.25 mg PO DAILY PRN PRN Reason: Anxiety Rimegepant Sulfate [Nurtec Odt] 75 mg PO Q48H PRN PRN Reason: Migraine Headache Ondansetron [Zofran ODT] 4 mg PO Q8H PRN PRN Reason: Nausea And Vomiting Discharge Medication List HYDROcodone/APAP 10-325MG [[place] 10-325] 1 tab PO QID 04/03/17 [History] Loratadine [Claritin] 10 mg PO DAILY 04/03/17 [History] Ergocalciferol [Vitamin D2 (DRISDOL)] 50,000 unit PO BENOIT 02/13/20 [History] Dicyclomine [Bentyl] 20 mg PO TID PRN 06/11/20 [History] Pantoprazole Sodium [Protonix] 40 mg PO BID 06/11/20 [History] FLUoxetine HCL [PROzac] 20 mg PO DAILY 09/28/20 [History] ALPRAZolam [Xanax] 0.125 - 0.25 mg PO DAILY PRN 09/29/20 [History] Rimegepant Sulfate [Nurtec Odt] 75 mg PO Q48H PRN 09/29/20 [History] Ondansetron [Zofran ODT] 4 mg PO Q8H PRN 11/17/20 [History] Prochlorperazine Suppository [Compazine] 25 mg RECTAL BID #30 supp 03/01/21 [Rx] Follow up Appointment(s)/Referral(s): Digna Alonso MD [Primary Care Provider] - 03/09/21 9:30 am Activity/Diet/Wound Care/Special Instructions: Continue diet as tolerated. fluids are encouraged to stay hydrated. Follow up with physician as directed. Call physician with any questions comments concerns worsening returning symptoms, not tolerating diet or fluids, fever, pain not controlled by medications used at home. Discharge Disposition: HOME SELF-CARE
== END 2021-03-01 16:33 | disposition home or self-care (01) ==
LOC: EC 09:43 → 6PED 12:33
PROVIDERS: ADMIT Internal Medicine; ATTEND Internal Medicine
DX: K58.0 Irritable bowel syndrome with diarrhea (principal); K29.50 Unspecified chronic gastritis without bleeding; D72.829 Elevated white blood cell count, unspecified; R74.8 Abnormal levels of other serum enzymes; G89.29 Other chronic pain; M51.36 Other intervertebral disc degeneration, lumbar region; G62.9 Polyneuropathy, unspecified; F41.9 Anxiety disorder, unspecified; F12.90 Cannabis use, unspecified, uncomplicated; M79.7 Fibromyalgia; E03.9 Hypothyroidism, unspecified; D64.9 Anemia, unspecified; Z79.899 Other long term (current) drug therapy; Z88.5 Allergy status to narcotic agent; Z87.891 Personal history of nicotine dependence; Z90.710 Acquired absence of both cervix and uterus
CPT/HCPCS: 96361 ×2; 96372 ×2; 96374; 96376 ×2; 96375; 99285; 36415; 80053 ×2; 82150; 83690; 85025 ×2; 81001; 81025; G0378 ×2; J1200; J0500; J2765; J2405 ×2; J1170 ×2; C9113 ×2; J1644 ×2

== ENCOUNTER → 2021-03-09 | Outpatient (CLI) | payer MEDICARE, OTHER ==
--- NOTE | 2021-03-09 16:04 | US ---
EXAMINATION TYPE: US thyroid st tissue head/neck DATE OF EXAM: 03/09/2021 COMPARISON: 07/07/2020 CLINICAL HISTORY: E04.1 THYROID NODULE,R22.1 SWELLING,MASS,LUMP. follow up thyroid GLAND SIZE: Right Lobe: 4.3 x 1.6 x 1.1 cm Overall Parenchyma: heterogenous Left Lobe: 5.1 x 1.6 x 0.8 cm Overall Parenchyma: heterogeneous Isthmus Thickness: 0.1 cm NODULES RIGHT: # of nodules measured on right: 1 1. 0.4 X 0.3 x 0.1 cm, lower medial, cystic or almost completely cystic, anechoic nodule, which is wider than tall, with smooth margins, without echogenic foci. Prior size: 0.3 x 0.2 x 0.11 cm LEFT: # of nodules measured on left: 1 1. 0.3 X 0.2 x 0.2 cm, mid medial, cystic or almost completely cystic, anechoic nodule, which is wi de as tall, with smooth margins, without echogenic foci. Prior size: 0.3 x 0.2 x 0.1 cm ISTHMUS: # of nodules measured in the isthmus: 0 Bilateral neck scanned. No evidence of lymphadenopathy on left neck. Prominent right neck lymph node seen = 1.8 x 0.6 x 0.4 cm IMPRESSION: Bilateral thyroid cysts appears similar 2017 ACR TI-RADS LEVEL: TR-RADS 1 - BENIGN: No FNA *Highest TI-RADS level nodule reported
== END | disposition home or self-care (01) ==
LOC: RADUSWWP 14:57
PROVIDERS: ATTEND Otolaryngology
DX: E04.2 Nontoxic multinodular goiter (principal)
CPT/HCPCS: 76536

== ENCOUNTER 2021-04-01 10:36 | Observation (INO) | payer MEDICARE, OTHER ==
[2021-04-01] MEDS ORDERED: SODIUM CHLORIDE 0.9% 1,000 ML IV STA ×2 (10:47)
[2021-04-01] MEDS ORDERED: METOCLOPRAMIDE 5 MG/ML 2 ML VIAL IVP STA (10:47)
[2021-04-01] MEDS ORDERED: FAMOTIDINE 20 MG/2 ML VIAL IV STA (10:48)
--- NOTE | 2021-04-01 10:49 | ED ---
General Adult HPI - General Chief complaint: Nausea/Vomiting/Diarrhea Stated complaint: vomiting Time Seen by Provider: 04/01/21 10:42 Source: patient, RN notes reviewed Mode of arrival: ambulatory Limitations: no limitations - History of Present Illness Initial comments: Patient is a pleasant 40-year-old female presenting to the emergency Department with complaints of vomiting. Onset was around 6 AM yesterday. Patient has been vomiting several times and retching since that time. Patient tried Zofran without improvement of symptoms. Patient does have history of chronic similar symptoms at least dozens of times previously associated with irritable bowel syndrome. Patient has had some mild abdominal discomfort secondary to the vomiting. No fevers. No diarrhea. - Related Data Home Medications Medication Instructions Recorded Confirmed HYDROcodone/APAP 10-325MG [[place] 1 tab PO QID 04/03/17 04/01/21 10-325] Loratadine [Claritin] 10 mg PO DAILY 04/03/17 04/01/21 Ergocalciferol [Vitamin D2 50,000 unit PO BENOIT 02/13/20 04/01/21 (DRISDOL)] Dicyclomine [Bentyl] 20 mg PO TID PRN 06/11/20 04/01/21 Pantoprazole Sodium [Protonix] 40 mg PO BID 06/11/20 04/01/21 FLUoxetine HCL [PROzac] 20 mg PO DAILY 09/28/20 04/01/21 ALPRAZolam [Xanax] 0.125 - 0.25 mg PO DAILY PRN 09/29/20 04/01/21 Rimegepant Sulfate [Nurtec Odt] 75 mg PO Q48H PRN 09/29/20 04/01/21 Ondansetron [Zofran ODT] 4 mg PO Q8H PRN 11/17/20 04/01/21 Previous Rx's Medication Instructions Recorded Prochlorperazine Suppository 25 mg RECTAL BID #30 supp 03/01/21 [Compazine] Allergies Allergy/AdvReac Type Severity Reaction Status Date / Time propoxyphene Allergy Rash/Hives Verified 04/01/21 12:46 [From Sissy] Review of Systems ROS Statement: Those systems with pertinent positive or pertinent negative responses have been documented in the HPI. ROS Other: All systems not noted in ROS Statement are negative. Constitutional: Denies: fever Eyes: Denies: eye pain ENT: Denies: ear pain Respiratory: Denies: cough Cardiovascular: Denies: chest pain Endocrine: Denies: fatigue Gastrointestinal: Reports: as per HPI, nausea, vomiting Genitourinary: Denies: dysuria Musculoskeletal: Denies: back pain Skin: Denies: rash Neurological: Denies: weakness Past Medical History Past Medical History: Fibromyalgia, Thyroid Disorder Additional Past Medical History / Comment(s): DDD, bulging discs, neuropathy in legs, thyroid nodules, anemia, environmental allergies, constipation/diarrhea, IBS diagnosed in 2019, chronic gastritis. History of Any Multi-Drug Resistant Organisms: None Reported Past Surgical History: Hysterectomy, Orthopedic Surgery Additional Past Surgical History / Comment(s): Right wrist and forearm surgery, D&C, mass on vocal cords - surgery and biopsy. Past Anesthesia/Blood Transfusion Reactions: Postoperative Nausea & Vomiting (PONV) Additional Past Anesthesia/Blood Transfusion Reaction / Comment(s): Constipation post-op. Past Psychological History: Anxiety Smoking Status: Never smoker Past Alcohol Use History: None Reported Past Drug Use History: Marijuana - Past Family History Mother Family Medical History: No Reported History Father Additional Family Medical History / Comment(s): "Cardiovascular swelling". General Exam Limitations: no limitations General appearance: alert, in no apparent distress Head exam: Present: normocephalic Eye exam: Present: normal appearance Neck exam: Present: normal inspection Respiratory exam: Present: normal lung sounds bilaterally Cardiovascular Exam: Present: regular rate, normal rhythm GI/Abdominal exam: Present: soft, normal bowel sounds. Absent: distended, tenderness, guarding, rebound, rigid, pulsatile mass Extremities exam: Present: normal inspection Neurological exam: Present: alert Psychiatric exam: Present: normal affect, normal mood Skin exam: Present: normal color Course Vital Signs 04/01/21 04/01/21 10:38 12:51 Temperature 97.2 F L Pulse Rate 104 H 79 Respiratory 18 18 Rate Blood Pressure 107/68 159/95 O2 Sat by Pulse 97 100 Oximetry Medical Decision Making - Medical Decision Making Patient reevaluated with only mild improvement. Patient still feels nauseated and unable to tolerate oral intake. Patient updated on results and plan. Lab work somewhat similar to previous. Case discussed with Dr. Menjivar, covering Dr. Bradley, who will admit. - Lab Data Result diagrams: 04/01/21 10:53 04/01/21 10:53 Lab Results 04/01/21 04/01/21 04/01/21 Range/Units 10:53 10:53 10:53 WBC 20.3 H (3.8-10.6) k/uL RBC 5.03 (3.80-5.40) m/uL Hgb 15.8 D (11.4-16.0) gm/dL Hct 45.3 (34.0-46.0) % MCV 90.1 (80.0-100.0) fL MCH 31.3 (25.0-35.0) pg MCHC 34.8 (31.0-37.0) g/dL RDW 13.2 (11.5-15.5) % Plt Count 330 (150-450) k/uL MPV 8.1 Neutrophils % 84 % Lymphocytes % 10 % Monocytes % 4 % Eosinophils % 0 % Basophils % 0 % Neutrophils # 17.1 H (1.3-7.7) k/uL Lymphocytes # 2.1 (1.0-4.8) k/uL Monocytes # 0.8 (0-1.0) k/uL Eosinophils # 0.1 (0-0.7) k/uL Basophils # 0.1 (0-0.2) k/uL PT 10.6 (9.0-12.0) sec INR 1.0 (<1.2) APTT 22.2 (22.0-30.0) sec Sodium (137-145) mmol/L Potassium (3.5-5.1) mmol/L Chloride (98-107) mmol/L Carbon Dioxide (22-30) mmol/L Anion Gap mmol/L BUN (7-17) mg/dL Creatinine (0.52-1.04) mg/dL Est GFR (CKD-EPI)AfAm (>60 ml/min/1.73 sqM) Est GFR (CKD-EPI)NonAf (>60 ml/min/1.73 sqM) Glucose (74-99) mg/dL Calcium (8.4-10.2) mg/dL Total Bilirubin (0.2-1.3) mg/dL AST (14-36) U/L ALT (4-34) U/L Alkaline Phosphatase (38-126) U/L Total Protein (6.3-8.2) g/dL Albumin (3.5-5.0) g/dL Amylase (30-110) U/L Lipase (23-300) U/L Urine Color Yellow Urine Appearance Cloudy H (Clear) Urine pH 6.0 (5.0-8.0) Ur Specific [place] 1.034 (1.001-1.035) Urine Protein 3+ H (Negative) Urine Glucose (UA) Trace H (Negative) Urine Ketones 2+ H (Negative) Urine Blood Moderate H (Negative) Urine Nitrite Negative (Negative) Urine Bilirubin 1+ H (Negative) Urine Urobilinogen <2.0 (<2.0) mg/dL Ur Leukocyte Esterase Small H (Negative) Urine RBC 9 H (0-5) /hpf Urine WBC 19 H (0-5) /hpf Ur Squamous Epith Cells 10 H (0-4) /hpf Urine Mucus Many H (None) /hpf 04/01/21 Range/Units 10:53 WBC (3.8-10.6) k/uL RBC (3.80-5.40) m/uL Hgb (11.4-16.0) gm/dL Hct (34.0-46.0) % MCV (80.0-100.0) fL MCH (25.0-35.0) pg MCHC (31.0-37.0) g/dL RDW (11.5-15.5) % Plt Count (150-450) k/uL MPV Neutrophils % % Lymphocytes % % Monocytes % % Eosinophils % % Basophils % % Neutrophils # (1.3-7.7) k/uL Lymphocytes # (1.0-4.8) k/uL Monocytes # (0-1.0) k/uL Eosinophils # (0-0.7) k/uL Basophils # (0-0.2) k/uL PT (9.0-12.0) sec INR (<1.2) APTT (22.0-30.0) sec Sodium 141 (137-145) mmol/L Potassium 4.7 (3.5-5.1) mmol/L Chloride 104 (98-107) mmol/L Carbon Dioxide 18 L (22-30) mmol/L Anion Gap 19 mmol/L BUN 24 H (7-17) mg/dL Creatinine 0.83 (0.52-1.04) mg/dL Est GFR (CKD-EPI)AfAm >90 (>60 ml/min/1.73 sqM) Est GFR (CKD-EPI)NonAf 88 (>60 ml/min/1.73 sqM) Glucose 131 H (74-99) mg/dL Calcium 11.2 H (8.4-10.2) mg/dL Total Bilirubin 0.9 (0.2-1.3) mg/dL AST 58 H (14-36) U/L ALT 90 H (4-34) U/L Alkaline Phosphatase 177 H (38-126) U/L Total Protein 9.5 H (6.3-8.2) g/dL Albumin 5.7 H (3.5-5.0) g/dL Amylase 77 (30-110) U/L Lipase 44 (23-300) U/L Urine Color Urine Appearance (Clear) Urine pH (5.0-8.0) Ur Specific [place] (1.001-1.035) Urine Protein (Negative) Urine Glucose (UA) (Negative) Urine Ketones (Negative) Urine Blood (Negative) Urine Nitrite (Negative) Urine Bilirubin (Negative) Urine Urobilinogen (<2.0) mg/dL Ur Leukocyte Esterase (Negative) Urine RBC (0-5) /hpf Urine WBC (0-5) /hpf Ur Squamous Epith Cells (0-4) /hpf Urine Mucus (None) /hpf Disposition Clinical Impression: Intractable vomiting with nausea Disposition: ADMITTED IP TO THIS HOSP Is patient prescribed a controlled substance at d/c from ED?: No Referrals: Digna Alonso MD [Primary Care Provider] - 1-2 days Decision Time: 13:47
[2021-04-01 11:27] LABS: Basophils # (A) 0.1 k/uL (0-0.2); Basophils % (A) 0 %; Eosinophils # (A) 0.1 k/uL (0-0.7); Eosinophils % (A) 0 %; HCT 45.3 % (34.0-46.0); Lymphocytes # (A) 2.1 k/uL (1.0-4.8); Lymphocytes % (A) 10 %; MCH 31.3 pg (25.0-35.0); MCHC 34.8 g/dL (31.0-37.0); MCV 90.1 fL (80.0-100.0); Mean Platelet Volume 8.1; Monocytes # (A) 0.8 k/uL (0-1.0); Monocytes % (A) 4 %; Neutrophils # (A) 17.1 k/uL (1.3-7.7); Neutrophils % (A) 84 %; Platelet Count 330 k/uL (150-450); RBC 5.03 m/uL (3.80-5.40); RDW 13.2 % (11.5-15.5); WBC 20.3 k/uL (3.8-10.6)
[2021-04-01 11:44] LABS: Partial Thromboplastin Time 22.2 sec (22.0-30.0); Prothrombin Time 10.6 sec (9.0-12.0)
[2021-04-01 11:45] LABS: HGB 15.8 gm/dL (11.4-16.0)
[2021-04-01 11:48] LABS: African American GFR (CKD) >90 (>60 ml/min/1.73 sqM); Amylase 77 U/L (30-110); Anion Gap 19 mmol/L; Blood Urea Nitrogen 24 mg/dL (7-17); Calcium 11.2 mg/dL (8.4-10.2); Carbon Dioxide 18 mmol/L (22-30); Chloride 104 mmol/L (98-107); Glucose 131 mg/dL (74-99); Lipase 44 U/L (23-300); Non-African American GFR(CKD) 88 (>60 ml/min/1.73 sqM); Sodium 141 mmol/L (137-145); Total Bilirubin 0.9 mg/dL (0.2-1.3)
[2021-04-01 11:49] LABS: Appearance,Urine Cloudy (Clear); Bilirubin,Urine 1+ (Negative); Blood,Urine Moderate (Negative); Color,Urine Yellow; Glucose,Urine (UA) Trace (Negative); Ketones,Urine 2+ (Negative); Leukocyte Esterase,Urine Small (Negative); Mucus,Urine Many /hpf; Nitrite,Urine Negative (Negative); Protein,Urine 3+ (Negative); RBC,Urine 9 /hpf (0-5); Specific Gravity,Urine 1.034 (1.001-1.035); Squamous Epithelial Cell,Urine 10 /hpf (0-4); Urobilinogen,Urine <2.0 mg/dL (<2.0); WBC,Urine 19 /hpf (0-5)
[2021-04-01 11:58] LABS: Albumin 5.7 g/dL (3.5-5.0); Potassium 4.7 mmol/L (3.5-5.1); Total Protein 9.5 g/dL (6.3-8.2)
[2021-04-01 11:59] LABS: ALT 90 U/L (4-34); AST 58 U/L (14-36); Alkaline Phosphatase 177 U/L (38-126)
[2021-04-01] MEDS ORDERED: LORazepam 2 MG/ML INJ IV STA (12:31)
[2021-04-01] MEDS ORDERED: ONDANSETRON 4 MG/2 ML VIAL IVP STA (12:31)
[2021-04-01] MEDS ORDERED: NALOXONE 0.4 MG/ML 1 ML VIAL IV PRN (13:48)
[2021-04-01] MEDS: SODIUM CHLORIDE 0.9% 1,000 ML IV SCH ×3 (14:17→23:34)
[2021-04-01] MEDS ORDERED: DICYCLOMINE 20 MG TAB PO PRN (16:07)
[2021-04-01] MEDS: HYDROcodone/APAP 10-325MG 1 EACH TAB PO SCH ×2 (17:44→23:27)
[2021-04-01] MEDS: METOCLOPRAMIDE 5 MG/ML 2 ML VIAL IVP PRN ×2 (17:53→23:27)
--- NOTE | 2021-04-01 18:28 | P.HPIM ---
History of Present Illness H&P Date: 04/01/21 Chief Complaint: Intractable nausea/vomiting/diarrhea 40-year-old female presenting to the emergency Department with complaints of vomiting. Onset was around 6 AM yesterday. Patient has been vomiting several times and retching since that time. Patient tried Zofran without improvement of symptoms. Patient does have history of chronic similar symptoms at least dozens of times previously associated with irritable bowel syndrome. Patient has had some mild abdominal discomfort secondary to the vomiting. No fevers. No diarrhea. Workup in ED was significant for elevated white cell count of 20.3, hemoglobin 15.8, platelet count of 3:30, sodium 141, potassium 4.7, BUN 24 with creatinine of 0.83; AST/ALT elevated at 58/90 with alk phosphatase of 177; UA is positive Review of Systems REVIEW OF SYSTEMS: CONSTITUTIONAL: No fever, no malaise, no fatigue. HEENT: No recent visual problems or hearing problems. Denied any sore throat. CARDIOVASCULAR: No chest pain, orthopnea, PND, no palpitations, no syncope. PULMONARY: No shortness of breath, no cough, no hemoptysis. GASTROINTESTINAL: No diarrhea, no nausea, no vomiting, no abdominal pain. NEUROLOGICAL: No headaches, no weakness, no numbness. HEMATOLOGICAL: Denies any bleeding or petechiae. GENITOURINARY: Denies any burning micturition, frequency, or urgency. MUSCULOSKELETAL/RHEUMATOLOGICAL: Denies any joint pain, swelling, or any muscle pain. ENDOCRINE: Denies any polyuria or polydipsia. The rest of the 14-point review of systems is negative. Past Medical History Past Medical History: Fibromyalgia, Thyroid Disorder Additional Past Medical History / Comment(s): DDD, bulging discs, neuropathy in legs, thyroid nodules, anemia, environmental allergies, constipation/diarrhea, IBS diagnosed in 2019, chronic gastritis. History of Any Multi-Drug Resistant Organisms: None Reported Past Surgical History: Hysterectomy, Orthopedic Surgery Additional Past Surgical History / Comment(s): Right wrist and forearm surgery, D&C, mass on vocal cords - surgery and biopsy. Past Anesthesia/Blood Transfusion Reactions: Postoperative Nausea & Vomiting (PONV) Additional Past Anesthesia/Blood Transfusion Reaction / Comment(s): Constipation post-op. Past Psychological History: Anxiety Smoking Status: Never smoker Past Alcohol Use History: None Reported Past Drug Use History: Marijuana - Past Family History Mother Family Medical History: No Reported History Father Additional Family Medical History / Comment(s): "Cardiovascular swelling". Medications and Allergies Home Medications Medication Instructions Recorded Confirmed Type HYDROcodone/APAP 10-325MG [[place] 1 tab PO QID 04/03/17 04/01/21 History 10-325] Loratadine [Claritin] 10 mg PO DAILY 04/03/17 04/01/21 History Ergocalciferol [Vitamin D2 50,000 unit PO BENOIT 02/13/20 04/01/21 History (DRISDOL)] Dicyclomine [Bentyl] 20 mg PO TID PRN 06/11/20 04/01/21 History Pantoprazole Sodium [Protonix] 40 mg PO BID 06/11/20 04/01/21 History FLUoxetine HCL [PROzac] 20 mg PO DAILY 09/28/20 04/01/21 History ALPRAZolam [Xanax] 0.125 - 0.25 mg PO DAILY PRN 09/29/20 04/01/21 History Rimegepant Sulfate [Nurtec Odt] 75 mg PO Q48H PRN 09/29/20 04/01/21 History Ondansetron [Zofran ODT] 4 mg PO Q8H PRN 11/17/20 04/01/21 History Prochlorperazine Suppository 25 mg RECTAL BID #30 supp 03/01/21 04/01/21 Rx [Compazine] Allergies Allergy/AdvReac Type Severity Reaction Status Date / Time propoxyphene Allergy Rash/Hives Verified 04/01/21 15:06 [From Sissy] Physical Exam Vitals: Vital Signs Temp Pulse Resp BP Pulse Ox 04/01/21 12:51 79 18 159/95 100 04/01/21 10:38 97.2 F L 104 H 18 107/68 97 Intake and Output 03/31/21 04/01/21 04/01/21 22:59 06:59 14:59 Other: Weight 72.121 kg - Constitutional General appearance: Present: average body habitus, cooperative, no acute distress - EENT Eyes: Present: anicteric sclerae, EOMI, PERRLA, normal appearance ENT: Present: hearing grossly normal, normal oropharynx Ears: bilateral: normal - Neck Neck: Present: normal ROM. Absent: lymphadenopathy, rigidity, thyromegaly Carotids: negative: bruit present Thyroid: bilateral: normal size, negative: enlarged, nodule - Respiratory Respiratory: bilateral: CTA, negative: rales, rhonchi, wheezing - Cardiovascular Rhythm: regular Heart sounds: normal: S1, S2 Abnormal Heart Sounds: Absent: systolic murmur, diastolic murmur - Gastrointestinal General gastrointestinal: Present: normal bowel sounds, soft. Absent: distended, organomegaly, tenderness - Genitourinary Genitourinary Comment(s): deferred - Integumentary Integumentary: Present: normal turgor. Absent: jaundiced, rash, ulcer - Neurologic Neurologic: Present: CNII-XII intact. Absent: focal deficits - Musculoskeletal Musculoskeletal: Present: gait normal, strength equal bilaterally - Psychiatric Psychiatric: Present: A&O x's 3, appropriate affect, intact judgment & insight Results CBC & Chem 7: 04/01/21 10:53 04/01/21 10:53 Labs: Abnormal Lab Results - Last 24 Hours (Table) 04/01/21 04/01/21 04/01/21 Range/Units 10:53 10:53 10:53 WBC 20.3 H (3.8-10.6) k/uL Neutrophils # 17.1 H (1.3-7.7) k/uL Carbon Dioxide 18 L (22-30) mmol/L BUN 24 H (7-17) mg/dL Glucose 131 H (74-99) mg/dL Calcium 11.2 H (8.4-10.2) mg/dL AST 58 H (14-36) U/L ALT 90 H (4-34) U/L Alkaline Phosphatase 177 H (38-126) U/L Total Protein 9.5 H (6.3-8.2) g/dL Albumin 5.7 H (3.5-5.0) g/dL Urine Appearance Cloudy H (Clear) Urine Protein 3+ H (Negative) Urine Glucose (UA) Trace H (Negative) Urine Ketones 2+ H (Negative) Urine Blood Moderate H (Negative) Urine Bilirubin 1+ H (Negative) Ur Leukocyte Esterase Small H (Negative) Urine RBC 9 H (0-5) /hpf Urine WBC 19 H (0-5) /hpf Ur Squamous Epith Cells 10 H (0-4) /hpf Urine Mucus Many H (None) /hpf Assessment and Plan Assessment: 1. Intractable nausea/vomiting/diarrhea - Patient will be admitted for IV fluid hydration; we will keep nothing by mouth and start patient on a clear liquid diet once improved - Protonix 40 mg IV daily; we will monitor strict SANDHYA's 2. Mild renal injury/dehydration; secondary to 1 - Patient remains on IV fluid hydration with normal saline; monitor strict SANDHYA's, daily weights, renal function and electrolytes; avoid nephrotoxins and hypotension 3. UTI; start patient on IV Rocephin; further recommendations once culture results are available 4. Transaminitis; possibly related to intractable vomiting; we will monitor liver enzymes. Plan to obtain abdominal ultrasound if remains elevated DVT prophylaxis; SCDs CODE STATUS; full code
[2021-04-01] MEDS ORDERED: MORPHINE SULFATE 2 MG/ML SYRINGE IVP PRN (19:40)
[2021-04-01 20:16] LABS: Basophils # (A) 0.1 k/uL (0-0.2); Basophils % (A) 0 %; Eosinophils % (A) 0 %; HCT 39.5 % (34.0-46.0); HGB 13.8 gm/dL (11.4-16.0); Lymphocytes # (A) 2.6 k/uL (1.0-4.8); Lymphocytes % (A) 17 %; MCH 31.6 pg (25.0-35.0); MCHC 34.9 g/dL (31.0-37.0); MCV 90.6 fL (80.0-100.0); Mean Platelet Volume 7.7; Monocytes # (A) 0.7 k/uL (0-1.0); Monocytes % (A) 4 %; Neutrophils # (A) 11.3 k/uL (1.3-7.7); Neutrophils % (A) 76 %; Platelet Count 281 k/uL (150-450); RBC 4.36 m/uL (3.80-5.40); RDW 13.1 % (11.5-15.5); WBC 14.8 k/uL (3.8-10.6)
[2021-04-01] MEDS: ONDANSETRON 4 MG/2 ML VIAL IVP PRN (20:21)
[2021-04-02] MEDS: ONDANSETRON 4 MG/2 ML VIAL IVP PRN ×2 (04:08→21:49)
[2021-04-02] MEDS: METOCLOPRAMIDE 5 MG/ML 2 ML VIAL IVP PRN ×4 (05:13→23:51)
[2021-04-02] MEDS: SODIUM CHLORIDE 0.9% 1,000 ML IV SCH ×3 (05:19→21:49)
[2021-04-02 05:52] LABS: Basophils # (A) 0.1 k/uL (0-0.2); Basophils % (A) 1 %; Eosinophils % (A) 0 %; HGB 13.8 gm/dL (11.4-16.0); Lymphocytes % (A) 23 %; MCH 31.2 pg (25.0-35.0); MCHC 33.6 g/dL (31.0-37.0); Mean Platelet Volume 7.2; Monocytes # (A) 0.6 k/uL (0-1.0); Monocytes % (A) 5 %; Neutrophils # (A) 9.1 k/uL (1.3-7.7); Neutrophils % (A) 70 %; Platelet Count 307 k/uL (150-450); RBC 4.41 m/uL (3.80-5.40); RDW 13.4 % (11.5-15.5)
[2021-04-02 06:03] LABS: ALT 65 U/L (4-34); AST 29 U/L (14-36); African American GFR (CKD) >90 (>60 ml/min/1.73 sqM); Albumin 4.6 g/dL (3.5-5.0); Alkaline Phosphatase 136 U/L (38-126); Anion Gap 13 mmol/L; Bilirubin,Unconjugated 0.5 mg/dL (0.0-1.1); Blood Urea Nitrogen 12 mg/dL (7-17); Calcium 9.5 mg/dL (8.4-10.2); Carbon Dioxide 19 mmol/L (22-30); Chloride 106 mmol/L (98-107); Glucose 112 mg/dL (74-99); Non-African American GFR(CKD) >90 (>60 ml/min/1.73 sqM); Sodium 138 mmol/L (137-145); Total Bilirubin 0.5 mg/dL (0.2-1.3); Total Protein 7.3 g/dL (6.3-8.2)
[2021-04-02 06:31] LABS: C Reactive Protein 0.9 mg/dL (<1.0)
[2021-04-02] MEDS: PANTOPRAZOLE 40 MG/10 ML VIAL IV SCH (08:23)
[2021-04-02] MEDS: LORATADINE 10 MG TAB PO SCH (08:34)
[2021-04-02] MEDS: HYDROcodone/APAP 10-325MG 1 EACH TAB PO SCH ×4 (08:34→21:49)
[2021-04-02] MEDS: FLUoxetine HCL 20 MG CAP PO SCH (08:34)
[2021-04-02] MEDS: LORazepam 0.5 MG TAB PO SCH ×2 (15:31→21:49)
[2021-04-02 19:47] VITALS: RESP 18
[2021-04-03] MEDS: ONDANSETRON 4 MG/2 ML VIAL IVP PRN (05:47)
[2021-04-03] MEDS: LORATADINE 10 MG TAB PO SCH (08:22)
[2021-04-03] MEDS: PANTOPRAZOLE 40 MG/10 ML VIAL IV SCH (08:22)
[2021-04-03] MEDS: LORazepam 0.5 MG TAB PO SCH (08:22)
[2021-04-03] MEDS ORDERED: ERGOCALCIFEROL 1,250 MCG (50,000 IU) CAPSULE PO SCH (09:00)
[2021-04-03 09:02] VITALS: BP 133/74; PULSE 87; TEMP 98.1
[2021-04-03] MEDS: HYDROcodone/APAP 10-325MG 1 EACH TAB PO SCH ×2 (09:03→13:19)
[2021-04-03] MEDS: FLUoxetine HCL 20 MG CAP PO SCH (09:03)
--- NOTE | 2021-04-03 12:27 | P.PN ---
Subjective Progress Note Date: 04/02/21 Principal diagnosis: Intractable nausea/vomiting/diarrhea Urinary tract infection 40-year-old female presenting to the emergency Department with complaints of vomiting. Onset was around 6 AM yesterday. Patient has been vomiting several times and retching since that time. Patient tried Zofran without improvement of symptoms. Patient does have history of chronic similar symptoms at least dozens of times previously associated with irritable bowel syndrome. Patient has had some mild abdominal discomfort secondary to the vomiting. No fevers. No d iarrhea. Workup in ED was significant for elevated white cell count of 20.3, hemoglobin 15.8, platelet count of 3:30, sodium 141, potassium 4.7, BUN 24 with creatinine of 0.83; AST/ALT elevated at 58/90 with alk phosphatase of 177; UA is positive Objective - Vital Signs Vital signs: Vital Signs Temp 98.6 F 04/02/21 14:00 Pulse 70 04/02/21 14:00 Resp 16 04/02/21 14:00 BP 112/78 04/02/21 14:00 Pulse Ox 95 04/02/21 14:00 Intake & Output 04/01/21 04/02/21 04/02/21 18:59 06:59 18:59 Intake Total 0 Output Total 100 500 Balance -100 -500 Weight 72.8 kg Intake: Oral 0 Output: Urine 500 Emesis 100 Other: # Voids 1 400 # Emeses 1 - Exam PHYSICAL EXAMINATION: GENERAL: The patient is alert and oriented x3, not in any acute distress. Well developed, well nourished. HEENT: Pupils are round and equally reacting to light. EOMI. No scleral icterus. No conjunctival pallor. Normocephalic, atraumatic. No pharyngeal erythema. No thyromegaly. CARDIOVASCULAR: S1 and S2 present. No murmurs, rubs, or gallops. PULMONARY: Chest is clear to auscultation, no wheezing or crackles. ABDOMEN: Soft, nontender, nondistended, normoactive bowel sounds. No palpable organomegaly. MUSCULOSKELETAL: No joint swelling or deformity. EXTREMITIES: No cyanosis, clubbing, or pedal edema. NEUROLOGICAL: Gross neurological examination did not reveal any focal deficits. SKIN: No rashes. - Labs CBC & Chem 7: 04/02/21 05:14 08/07/21 05:14 Labs: Abnormal Lab Results - Last 24 Hours (Table) 04/01/21 04/02/21 04/02/21 Range/Units 19:46 05:14 05:14 WBC 14.8 H 13.0 H (3.8-10.6) k/uL Neutrophils # 11.3 H 9.1 H (1.3-7.7) k/uL Carbon Dioxide 19 L (22-30) mmol/L Glucose 112 H (74-99) mg/dL ALT 65 H (4-34) U/L Alkaline Phosphatase 136 H (38-126) U/L Microbiology - Last 24 Hours (Table) 04/01/21 10:53 Urine Culture - Preliminary Urine,Voided Assessment and Plan Assessment: 1. Intractable nausea/vomiting/diarrhea - Patient will be admitted for IV fluid hydration; we will keep nothing by mouth and start patient on a clear liquid diet once improved - Protonix 40 mg IV daily; we will monitor strict SANDHYA's 2. Mild renal injury/dehydration; secondary to 1 - Patient remains on IV fluid hydration with normal saline; monitor strict SANDHYA's, daily weights, renal function and electrolytes; avoid nephrotoxins and hypotension 3. UTI; start patient on IV Rocephin; further recommendations once culture results are available 4. Transaminitis; possibly related to intractable vomiting; we will monitor liver enzymes. Plan to obtain abdominal ultrasound if remains elevated DVT prophylaxis; SCDs CODE STATUS; full code
[2021-04-03] MEDS: SODIUM CHLORIDE 0.9% 1,000 ML IV SCH (13:19)
== END 2021-04-03 14:48 | disposition home or self-care (01) ==
LOC: EC 10:36 → 6PED 13:48
PROVIDERS: ADMIT Internal Medicine; ATTEND Internal Medicine
DX: R11.2 Nausea with vomiting, unspecified (principal); N39.0 Urinary tract infection, site not specified; E86.0 Dehydration; F41.9 Anxiety disorder, unspecified; M79.7 Fibromyalgia; Z79.899 Other long term (current) drug therapy; Z90.710 Acquired absence of both cervix and uterus
CPT/HCPCS: 99284; 96361 ×2; 96365; 96366; 96375 ×3; 96376 ×3; 36415; 80053 ×2; 80076; 82150; 83605; 83690; 85025 ×2; 85610; 85730; 86140; 81001; 87040 ×2; 87086; 84145; G0378 ×3; J2060; J2765 ×2; J2405 ×3; J0696 ×3; J2270; C9113 ×2

== ENCOUNTER 2021-05-12 06:24 | Day surgery (SDC) | payer MEDICARE, OTHER ==
[2021-05-09 16:14] VITALS: BMI 25.7
[~2021-05-12 06:24] MED LIST changes: +DEXAMETHASONE SOD PHOSPHATE 4 MG/ML 1 ML VIAL IV ONE; +DEXAMETHASONE SOD PHOSPHATE 4 MG/ML 1 ML VIAL IV PRN; +FAMOTIDINE 20 MG/2 ML VIAL IV PRN; +ONDANSETRON 4 MG/2 ML VIAL IVP ONE; +ONDANSETRON 4 MG/2 ML VIAL IVP PRN; +OXYMETAZOLINE 0.05% NASL SPRAY 1 SPRAY BOTTLE EA NOSTRIL PRN
[2021-05-12 06:59] VITALS: RESP 16; TEMP 97.2
[2021-05-12] MEDS ORDERED: LIDOCAINE 1% (10MG/ML) FOR IV START INTRADERMA ONE (07:10)
[2021-05-12] MEDS ORDERED: SCOPOLAMINE 1.5MG/72HR PATCH TRANSDERM ONE (07:15)
[2021-05-12] MEDS ORDERED: SUCCINYLCHOLINE CHLORIDE 100 MG/5 ML SYR IV ONE (07:24)
[2021-05-12] MEDS ORDERED: GLYCOPYRROLATE 0.2 MG/ML 2 ML VIAL ONE (07:24)
[2021-05-12] MEDS ORDERED: LIDOCAINE 1% INJ 10MG/ML (20 ML MDV) ONE (07:24)
[2021-05-12] MEDS ORDERED: MIDAZOLAM 2 MG/2 ML VIAL ONE (07:24)
[2021-05-12] MEDS ORDERED: DEXAMETHASONE SOD PHOSPHATE 10 MG/ML 1 ML VIAL ONE (07:24)
[2021-05-12] MEDS ORDERED: ONDANSETRON 4 MG/2 ML VIAL ONE (07:24)
[2021-05-12] MEDS ORDERED: PROPOFOL 10 MG/ML 20 ML VIAL IV ONE (07:24)
[2021-05-12] MEDS ORDERED: diphenhydrAMINE 50 MG/ML 1 ML VIAL ONE (07:24)
[2021-05-12] MEDS ORDERED: NEOSTIGMINE 1 MG/ML 10 ML VIAL ONE (07:24)
[2021-05-12] MEDS ORDERED: ROCURONIUM 10 MG/ML (5 ML VIAL) IV ONE (07:24)
[2021-05-12] MEDS ORDERED: fentaNYL (PF) 50 MCG/ML 2 ML AMP ONE (07:24)
[2021-05-12] MEDS ORDERED: EPINEPHrine 1 MG/ML (MDV) 30 ML VIAL TOPICAL ONE (07:50)
[2021-05-12] MEDS ORDERED: BUPIVACAINE (PF) 0.5% 30 ML VIAL SQ ONE ×2 (07:50)
[2021-05-12] MEDS ORDERED: LIDOCAINE 2%-EPI 1:100,000 20 ML VIAL SQ ONE ×2 (07:50)
[2021-05-12] MEDS ORDERED: BACITRACIN ZINC 500 UNIT/GM OINT 28.4 GM TUBE TOPICAL ONE ×2 (08:08→08:44)
--- NOTE | 2021-05-12 09:23 | P.OP ---
Date of Procedure: 05/12/21 Preoperative Diagnosis: Chronic pansinusitis with sinonasal polyposis, deviated nasal septum, hypertrophy of inferior nasal turbinates bilaterally. Postoperative Diagnosis: Same Procedure(s) Performed: Septoplasty Bilateral submucosal resection of the inferior nasal turbinates with outfracturing compression Bilateral functional endoscopic sinus surgery with polypectomy of all sinuses Anesthesia: HANNAH Surgeon: Travis Olson Estimated Blood Loss (ml): 20 Pathology: other (Sinonasal) Condition: stable Disposition: PACU Indications for Procedure: This is a 40-year-old white female who has had chronic long-standing problems with facial pain and pressure, head pain, nasal congestion and thick yellow drainage. She gets a lot of pain in the frontal and maxillary sinuses area MRI was done showing chronic pansinusitis with sinonasal polyposis deviated nasal septum and large obstructive inferior turbinates. Patient's been on multiple medications for a long period time with no improvement. The patient has failed antibiotic therapy [id number] ALLERGY medications cortisone nasal sprays etc. She was found have significant obstructive polyps bilaterally and a severe deviated nasal septum with large obstructive inferior turbinates. Since she's failed medical therapy she wished to proceed forward with sinus surgery. All risks, benefits, and alternative therapies were discussed in detail. Risks of bleeding, infection, perforation into the orbit and brain, recurrence of infection, etc. etc. were explained and a consent was obtained and all questions were answered. Operative Findings: Patient had a severe deviated nasal septum to the right with near total occlusion. Large obstructive inferior turbinates and evidence of chronic pansinusitis with significant polyposis bilaterally causing obstruction. Description of Procedure: This patient was taken to the operative room and placed in the supine position. A general inhalation anesthetic was administered to the patient by the department of anesthesia with a functioning IV line in place. The patient was monitored throughout the entire case by the department of anesthesia. The eyes were taped shut for protection. The patient was placed in a slight reverse Trendelenburg position. The patient had previously utilize Afrin nasal spray preoperatively. The nose was evaluated and the septum lateral nasal wall and inferior turbinates were injected with lidocaine 1% with epinephrine 1 100,000 bilaterally. Approximately 10 minutes were allowed wait for full vasoconstrictive effects to take place. At this point a caudal incision was made over the caudal portion of the left septum down to the mucoperichondrium. A mucoperichondrial flap was elevated on the left side and dissection was carried with use of tunnels posteriorly. We then made a crossover incision through the cartilage to the contralateral side and for the mucoperichondrial flap development was performed to the extent of visualization on the contralateral side. After the cartilage was freed with use of several crosshatching incisions and removal of some redundant strips of septal cartilage, the septum was straightened and placed back in the midline. The septum was sutured fixated to the ovarian groove. Excellent straightening occurred and the septum was visibly straight. Incision was closed with a 40 rapid Vicryl. We utilized a running nonlocking fashion for closure of the incision. A quilting stitch was used to reapproximate the septal flaps with use of a 40 rapid Vicryl. We then entered the nose with a 0 and 30 Davidson karl endoscope. Previous to this we did inject the lateral nasal wall and middle turbinate and uncinate process with lidocaine 1% with epinephrine 1 100,000. Approximately 10 minutes were allowed wait for full vasoconstrictive effects to take place. Intranasal polyps were noted. They were noted bilaterally. The intranasal polyps were removed with use of a microdebrider. With use of a microdebrider and a pediatric backbiter, we took down the uncinate process bilaterally. We then opened the maxillary sinuses bilaterally. We utilized a microdebrider for this and entered the maxillary sinuses and removed diseased tissue and polypoid tissue. This was done bilaterally. After the maxillary sinuses were opened and the diseased tissue and polyps were removed we entered the ethmoid bulla and with use of a microdebrider and up-biting Garry, we remove the anterior septations and remove diseased tissue from the anterior ethmoids with direct visualization. We then followed the fovea frontalis through the basal lamella and into the posterior ethmoid air cells and did a total ethmoidectomy with removal of polypoid material. Once the ethmoids cells were all taken down we then entered the sphenoid sinus medially and inferiorly underneath the inferior attachment of the superior turbinate. The sphenoid sinus was opened entered and diseased tissue and polyps were removed bilaterally. This was done with a microdebrider and Blakesley. We then entered the frontal sinuses with a giraffe and up-biting Rebecca entered on the agar nasi cells. We open the frontal sinuses and removed sinus tissue and polypoid tissue that was diseased. We utilized balloon assistance in opening the frontal sinuses bilaterally but then took down diseased tissue and explore the frontal sinuses bilaterally. We explored the frontal sinuses bilaterally. To summarize all sinuses were open all sinuses were explored and we remove diseased tissue and polyps from the sphenoid maxillary and frontal sinuses. Polyps were removed from the nose. Ethmoid sinuses were opened totally. Nasal pore was inserted and minimal bleeding was encountered. We reinspected the skull base there is no signs of any orbital penetration or signs of any intracranial penetration. The sugical site was reinspected after the nasal pore was placed and no bleeding was seen. Attention was then paid to the inferior turbinates. The bilateral inferior turbinates were hypertrophic and obstructive. We entered the anterior portion of the inferior turbinates with use of a microdebrider. We remove bone and submucosal elements with use of a microdebrider bilaterally. The inferior turbinates underwent a submucosal resection with removal of submucosal tissue and bone. We obtained a much better and normal in size for breathing. The i nferior turbinates were then outfractured and compressed with a Boyes nasal elevator. Excellent airway was obtained and was symmetric bilaterally. No bleeding was encountered. Intranasal splints were inserted and fixated at the end of the case. We utilized Stringer nasal splints. There will be removed and the patient returns to the office.
[2021-05-12] MEDS: HYDROmorphone 0.5 MG/0.5 ML SYRINGE IVP PRN ×2 (09:32→09:43)
[2021-05-12] MEDS ORDERED: ONDANSETRON 4 MG/2 ML VIAL IVP ONE (09:44)
[2021-05-12 10:20] VITALS: BP 121/75; PULSE 73
== END 2021-05-12 10:53 | disposition home or self-care (01) ==
LOC: OR 06:24
PROVIDERS: ATTEND Otolaryngology
DX: J32.4 Chronic pansinusitis (principal); J34.2 Deviated nasal septum; J34.3 Hypertrophy of nasal turbinates; E78.00 Pure hypercholesterolemia, unspecified; Z79.899 Other long term (current) drug therapy; J33.8 Other polyp of sinus; E04.1 Nontoxic single thyroid nodule; K58.9 Irritable bowel syndrome, unspecified; F41.9 Anxiety disorder, unspecified
CPT/HCPCS: 88305; 88300; 31237; 30130; 30520; J0171; J2250; J1200; J1100 ×2; J2710; J2405; J0690; J2001; J3010; J0330; J2704; J1170

== ENCOUNTER 2021-07-10 05:20 | Emergency (ER) | payer MEDICARE, OTHER ==
[2021-07-10] MEDS ORDERED: MORPHINE SULFATE 4 MG/ML SYRINGE IV STA (05:39)
[2021-07-10] MEDS ORDERED: SODIUM CHLORIDE 0.9% 500 ML 500 ML IV STA (05:39)
[2021-07-10] MEDS ORDERED: SODIUM CHLORIDE 0.9% 1,000 ML IV STA ×3 (05:39→07:03)
[2021-07-10] MEDS ORDERED: ONDANSETRON 4 MG/2 ML VIAL IVP STA (05:39)
[2021-07-10] MEDS ORDERED: KETOROLAC 15 MG/ML 1 ML VIAL IVP STA (05:39)
--- NOTE | 2021-07-10 05:40 | ED ---
Recheck HPI - General Source: patient Mode of arrival: wheelchair <Sherman Werner - Last Filed: 07/10/21 07:03> - General Source: patient Limitations: no limitations <Mahin Pang - Last Filed: 07/10/21 09:14> - General Chief Complaint: Nausea/Vomiting/Diarrhea Stated Complaint: Vomiting Time Seen by Provider: 07/10/21 05:23 - Related Data Home Medications Medication Instructions Recorded Confirmed HYDROcodone/APAP 10-325MG [[place] 1 tab PO QID 04/03/17 05/09/21 10-325] Loratadine [Claritin] 10 mg PO DAILY 04/03/17 05/09/21 Ergocalciferol [Vitamin D2 50,000 unit PO SA 02/13/20 05/09/21 (DRISDOL)] Dicyclomine [Bentyl] 20 mg PO TID PRN 06/11/20 05/09/21 Pantoprazole Sodium [Protonix] 40 mg PO BID 06/11/20 05/09/21 FLUoxetine HCL [PROzac] 20 mg PO QAM 09/28/20 05/09/21 ALPRAZolam [Xanax] 0.125 - 0.25 mg PO DAILY PRN 09/29/20 05/09/21 Ibuprofen [Motrin] 800 mg PO Q8H 05/09/21 05/09/21 Allergies Allergy/AdvReac Type Severity Reaction Status Date / Time propoxyphene Allergy Rash/Hives Verified 07/10/21 05:36 [From Martha-Sumit] Review of Systems ROS Other: All systems not noted in ROS Statement are negative. <Sherman Werner - Last Filed: 07/10/21 07:03> ROS Other: All systems not noted in ROS Statement are negative. <Mahin Pang - Last Filed: 07/10/21 09:14> ROS Statement: Those systems with pertinent positive or pertinent negative responses have been documented in the HPI. Past Medical History Past Medical History: Fibromyalgia, Thyroid Disorder Additional Past Medical History / Comment(s): DDD, bulging discs, neuropathy in legs, thyroid nodules, anemia, environmental allergies, constipation/diarrhea, IBS diagnosed in 2019, chronic gastritis. History of Any Multi-Drug Resistant Organisms: None Reported Past Surgical History: Hysterectomy, Orthopedic Surgery Additional Past Surgical History / Comment(s): Right wrist and forearm surgery, D&C, mass on vocal cords - surgery and biopsy. Past Anesthesia/Blood Transfusion Reactions: Postoperative Nausea & Vomiting (PONV) Additional Past Anesthesia/Blood Transfusion Reaction / Comment(s): Constipation post-op. Past Psychological History: Anxiety Smoking Status: Never smoker - Past Family History Mother Family Medical History: No Reported History Father Additional Family Medical History / Comment(s): "Cardiovascular swelling". <Sherman Werner - Last Filed: 07/10/21 07:03> Course Vital Signs 07/10/21 07/10/21 07/10/21 05:32 06:10 07:21 Temperature 98.2 F Pulse Rate 113 H 100 90 Respiratory 18 22 18 Rate Blood Pressure 152/76 124/73 106/69 O2 Sat by Pulse 98 100 100 Oximetry Medical Decision Making - Lab Data Result diagrams: 07/10/21 06:02 <Sherman Werner - Last Filed: 07/10/21 07:03> - Lab Data Result diagrams: 07/10/21 06:02 07/10/21 06:02 <Mahin Pang - Last Filed: 07/10/21 09:14> - Lab Data Lab Results 07/10/21 07/10/21 Range/Units 06:02 06:02 WBC 21.0 H (3.8-10.6) k/uL RBC 5.16 (3.80-5.40) m/uL Hgb 16.1 H (11.4-16.0) gm/dL Hct 44.7 (34.0-46.0) % MCV 86.6 (80.0-100.0) fL MCH 31.2 (25.0-35.0) pg MCHC 36.0 (31.0-37.0) g/dL RDW 13.5 (11.5-15.5) % Plt Count 330 (150-450) k/uL MPV 7.9 Neutrophils % 88 % Lymphocytes % 8 % Monocytes % 4 % Eosinophils % 0 % Basophils % 0 % Neutrophils # 18.3 H (1.3-7.7) k/uL Lymphocytes # 1.6 (1.0-4.8) k/uL Monocytes # 0.8 (0-1.0) k/uL Eosinophils # 0.0 (0-0.7) k/uL Basophils # 0.1 (0-0.2) k/uL Hyperchromasia Slight Sodium 139 (137-145) mmol/L Potassium 3.6 (3.5-5.1) mmol/L Chloride 102 (98-107) mmol/L Carbon Dioxide 15 L (22-30) mmol/L Anion Gap 22 mmol/L BUN 23 H (7-17) mg/dL Creatinine 0.81 (0.52-1.04) mg/dL Est GFR (CKD-EPI)AfAm >90 (>60 ml/min/1.73 sqM) Est GFR (CKD-EPI)NonAf >90 (>60 ml/min/1.73 sqM) Glucose 140 H (74-99) mg/dL Calcium 11.1 H (8.4-10.2) mg/dL Total Bilirubin 0.7 (0.2-1.3) mg/dL AST 39 H (14-36) U/L ALT 55 H (4-34) U/L Alkaline Phosphatase 183 H (38-126) U/L Total Protein 9.4 H (6.3-8.2) g/dL Albumin 5.6 H (3.5-5.0) g/dL Amylase 59 (30-110) U/L Lipase 43 (23-300) U/L Disposition Is patient prescribed a controlled substance at d/c from ED?: No <Sherman Werner - Last Filed: 07/10/21 07:03> Time of Disposition: 09:14 <Mahin Pang - Last Filed: 07/10/21 09:14> Clinical Impression: Dehydration, Nausea vomiting and diarrhea, Transaminitis, Abdominal pain Disposition: HOME SELF-CARE Condition: Good Instructions (If sedation given, give patient instructions): Acute Nausea and V omiting (ED), Abdominal Pain (ED) Referrals: Digna Alonso MD [Primary Care Provider] - 1-2 days
[2021-07-10] MEDS ORDERED: METOCLOPRAMIDE 5 MG/ML 2 ML VIAL IVP STA (06:03)
[2021-07-10] MEDS ORDERED: diphenhydrAMINE 50 MG/ML 1 ML VIAL IVP STA (06:03)
[2021-07-10] MEDS ORDERED: HYDROmorphone 1 MG/ML 1 ML SYRINGE IVP STA ×3 (06:03→08:48)
--- NOTE | 2021-07-10 06:16 | XR ---
EXAMINATION TYPE: XR KUB DATE OF EXAM: 07/10/2021 COMPARISON: 11/17/2020 HISTORY: Pain TECHNIQUE: 2 views upright FINDINGS: There is no sign of intestinal obstruction or pneumoperitoneum. Fecal pattern is normal. Violette ng bases are clear. There are no pathologic calcifications over the kidneys. IMPRESSION: Nonacute abdomen. No change.
[2021-07-10 06:53] LABS: ALT 55 U/L (4-34); AST 39 U/L (14-36); African American GFR (CKD) >90 (>60 ml/min/1.73 sqM); Albumin 5.6 g/dL (3.5-5.0); Alkaline Phosphatase 183 U/L (38-126); Amylase 59 U/L (30-110); Anion Gap 22 mmol/L; Blood Urea Nitrogen 23 mg/dL (7-17); Calcium 11.1 mg/dL (8.4-10.2); Carbon Dioxide 15 mmol/L (22-30); Chloride 102 mmol/L (98-107); Glucose 140 mg/dL (74-99); Lipase 43 U/L (23-300); Non-African American GFR(CKD) >90 (>60 ml/min/1.73 sqM); Potassium 3.6 mmol/L (3.5-5.1); Sodium 139 mmol/L (137-145); Total Bilirubin 0.7 mg/dL (0.2-1.3); Total Protein 9.4 g/dL (6.3-8.2)
[2021-07-10 07:05] LABS: Basophils # (A) 0.1 k/uL (0-0.2); Basophils % (A) 0 %; Eosinophils % (A) 0 %; HCT 44.7 % (34.0-46.0); HGB 16.1 gm/dL (11.4-16.0); Hyperchromasia Slight; Lymphocytes # (A) 1.6 k/uL (1.0-4.8); Lymphocytes % (A) 8 %; MCH 31.2 pg (25.0-35.0); MCV 86.6 fL (80.0-100.0); Mean Platelet Volume 7.9; Monocytes # (A) 0.8 k/uL (0-1.0); Monocytes % (A) 4 %; Neutrophils # (A) 18.3 k/uL (1.3-7.7); Neutrophils % (A) 88 %; Platelet Count 330 k/uL (150-450); RBC 5.16 m/uL (3.80-5.40); RDW 13.5 % (11.5-15.5)
[2021-07-10 07:23] VITALS: PULSE 90; RESP 18
[2021-07-10 09:29] VITALS: BP 104/71; TEMP 97.9
[2021-07-10 09:30] LABS: Appearance,Urine Cloudy (Clear); Bacteria,Urine Occasional /hpf; Bilirubin,Urine Negative (Negative); Blood,Urine Small (Negative); Color,Urine Yellow; Glucose,Urine (UA) Negative (Negative); Ketones,Urine 3+ (Negative); Leukocyte Esterase,Urine Negative (Negative); Mucus,Urine Few /hpf; Nitrite,Urine Negative (Negative); Protein,Urine 2+ (Negative); RBC,Urine 1 /hpf (0-5); Specific Gravity,Urine 1.031 (1.001-1.035); Squamous Epithelial Cell,Urine <1 /hpf (0-4); Urobilinogen,Urine <2.0 mg/dL (<2.0); WBC,Urine 7 /hpf (0-5)
== END 2021-07-10 09:37 | disposition home or self-care (01) ==
LOC: EC 05:20
DX: R11.2 Nausea with vomiting, unspecified (principal); R19.7 Diarrhea, unspecified; E86.0 Dehydration; R10.9 Unspecified abdominal pain; R74.01 Elevation of levels of liver transaminase levels; E07.9 Disorder of thyroid, unspecified; F41.9 Anxiety disorder, unspecified; Z90.710 Acquired absence of both cervix and uterus
CPT/HCPCS: 99284; 96374; 96375 ×6; 96376; 96361 ×2; 36415; 80053; 82150; 83690; 85025; 81001; 74018; J2270; J1200; J2765; J2405; J1170; J1885; J1790

== ENCOUNTER 2021-07-13 14:13 | Emergency (ER) | payer MEDICARE, OTHER ==
[2021-07-13 14:39] VITALS: TEMP 98.9
[2021-07-13] MEDS ORDERED: HYDROmorphone 1 MG/ML 1 ML SYRINGE IVP STA (15:26)
[2021-07-13] MEDS ORDERED: ONDANSETRON 4 MG/2 ML VIAL IVP STA ×2 (15:26→18:25)
[2021-07-13] MEDS ORDERED: SODIUM CHLORIDE 0.9% 1,000 ML IV STA (15:26)
[2021-07-13 15:48] LABS: Basophils % (A) 0 %; Eosinophils # (A) 0.2 k/uL (0-0.7); Eosinophils % (A) 1 %; HCT 44.6 % (34.0-46.0); HGB 15.8 gm/dL (11.4-16.0); Lymphocytes % (A) 5 %; MCH 30.9 pg (25.0-35.0); MCHC 35.4 g/dL (31.0-37.0); MCV 87.1 fL (80.0-100.0); Mean Platelet Volume 7.6; Monocytes # (A) 0.2 k/uL (0-1.0); Monocytes % (A) 1 %; Neutrophils # (A) 16.2 k/uL (1.3-7.7); Neutrophils % (A) 92 %; Platelet Count 333 k/uL (150-450); RBC 5.12 m/uL (3.80-5.40); RDW 12.5 % (11.5-15.5); WBC 17.7 k/uL (3.8-10.6)
[2021-07-13 15:57] LABS: ALT 43 U/L (4-34); AST 35 U/L (14-36); African American GFR (CKD) >90 (>60 ml/min/1.73 sqM); Albumin 5.5 g/dL (3.5-5.0); Alkaline Phosphatase 152 U/L (38-126); Amylase 93 U/L (30-110); Anion Gap 18 mmol/L; Blood Urea Nitrogen 13 mg/dL (7-17); Calcium 10.9 mg/dL (8.4-10.2); Carbon Dioxide 17 mmol/L (22-30); Chloride 106 mmol/L (98-107); Glucose 138 mg/dL (74-99); Lipase 149 U/L (23-300); Non-African American GFR(CKD) >90 (>60 ml/min/1.73 sqM); Potassium 3.5 mmol/L (3.5-5.1); Sodium 141 mmol/L (137-145); Total Bilirubin 0.7 mg/dL (0.2-1.3); Total Protein 9.1 g/dL (6.3-8.2)
[2021-07-13 18:51] LABS: Appearance,Urine Clear (Clear); Bilirubin,Urine Negative (Negative); Blood,Urine Negative (Negative); Color,Urine Yellow; Glucose,Urine (UA) Negative (Negative); Ketones,Urine 3+ (Negative); Leukocyte Esterase,Urine Negative (Negative); Nitrite,Urine Negative (Negative); PH, Urine 8.5 (5.0-8.0); Protein,Urine Trace (Negative); Specific Gravity,Urine 1.018 (1.001-1.035); Urobilinogen,Urine <2.0 mg/dL (<2.0)
[2021-07-13] MEDS ORDERED: METOCLOPRAMIDE 5 MG/ML 2 ML VIAL IVP STA (20:06)
[2021-07-13 20:15] VITALS: RESP 16
[2021-07-13 21:22] VITALS: BP 133/82; PULSE 89
--- NOTE | 2021-07-13 21:41 | CT ---
EXAMINATION TYPE: CT abdomen pelvis w con DATE OF EXAM: 07/13/2021 COMPARISON: 10/06/2020 HISTORY: abdominal pain, nausea, vomiting CT DLP: 1212 mGycm Automated exposure control for dose reduction was used. TECHNIQUE: Helical acquisition of images was performed from the lung bases through the pelvis. CONTRAST: Performed without Oral Contrast and with IV Contrast, patient injected with 100 mL of Isovue 300. FINDINGS: LUNG BASES: Normal. LIVER: Normal. BILIARY SYSTEM: Normal. PANCREAS: Normal. SPLEEN: Normal. ADRENALS: Normal. KIDNEYS: Normal. BOWEL: No obstruction or thickening. PERITONEUM: No pneumoperitoneum. No free fluid. LYMPH NODES: No lymphadenopathy. PELVIS: Normal. VASCULATURE: No abdominal aortic aneurysm. MUSCULOSKELETAL: No acute osseous normality. IMPRESSION: No acute abdominopelvic process.
--- NOTE | 2021-07-13 21:46 | ED ---
Nausea/Vomiting/Diarrhea HPI - General Chief complaint: Nausea/Vomiting/Diarrhea Stated complaint: IBS Flare Up Time Seen by Provider: 07/13/21 15:23 Source: patient, RN notes reviewed Mode of arrival: wheelchair Limitations: no limitations - History of Present Illness Initial comments: Patient is a 40-year-old female that presents to the emergency department complaining of vague abdominal pain. She was seen 2 days prior for the same complaint and was discharged home. Labs were unremarkable on previous visit. Patient comes in today stating that she is done with her at home one can no longer deal with it so she came to the emergency room. She denied any aggravating or alleviating factors. She was otherwise well-appearing. She denied any chest pain shortness of breath headache nausea vomiting diarrhea constipation fever fatigue chills. She attributes this to an IBS flareup. - Related Data Home Medications Medication Instructions Recorded Confirmed HYDROcodone/APAP 10-325MG [[place] 1 tab PO QID PRN 04/03/17 07/13/21 10-325] Loratadine [Claritin] 10 mg PO DAILY 04/03/17 07/13/21 Ergocalciferol [Vitamin D2 50,000 unit PO SA 02/13/20 07/13/21 (DRISDOL)] Dicyclomine [Bentyl] 20 mg PO TID PRN 06/11/20 07/13/21 Pantoprazole Sodium [Protonix] 40 mg PO BID 06/11/20 07/13/21 FLUoxetine HCL [PROzac] 20 mg PO DAILY 09/28/20 07/13/21 Metoclopramide [Reglan] 5 mg PO TID PRN 07/13/21 07/13/21 Ondansetron Odt [Zofran Odt] 4 mg PO Q8HR PRN 07/13/21 07/13/21 Prochlorperazine Suppository 25 mg RECTAL BID PRN 07/13/21 07/13/21 [Compazine] Allergies Allergy/AdvReac Type Severity Reaction Status Date / Time propoxyphene Allergy Rash/Hives Verified 07/13/21 16:40 [From Sissy] Review of Systems ROS Statement: Those systems with pertinent positive or pertinent negative responses have been documented in the HPI. ROS Other: All systems not noted in ROS Statement are negative. Past Medical History Past Medical History: Fibromyalgia, Thyroid Disorder Additional Past Medical History / Comment(s): DDD, bulging discs, neuropathy in legs, thyroid nodules, anemia, environmental allergies, constipation/diarrhea, IBS diagnosed in 2019, chronic gastritis. History of Any Multi-Drug Resistant Organisms: None Reported Past Surgical History: Hysterectomy, Orthopedic Surgery Additional Past Surgical History / Comment(s): Right wrist and forearm surgery, D&C, mass on vocal cords - surgery and biopsy. Past Anesthesia/Blood Transfusion Reactions: Postoperative Nausea & Vomiting (PONV) Additional Past Anesthesia/Blood Transfusion Reaction / Comment(s): Constipation post-op. Past Psychological History: Anxiety Smoking Status: Never smoker Past Alcohol Use History: None Reported Past Drug Use History: Marijuana - Past Family History Mother Family Medical History: No Reported History Father Additional Family Medical History / Comment(s): "Cardiovascular swelling". General Exam Limitations: no limitations General appearance: alert, in no apparent distress Head exam: Present: atraumatic, normocephalic, normal inspection Eye exam: Present: normal appearance, PERRL, EOMI. Absent: scleral icterus, conjunctival injection, periorbital swelling ENT exam: Present: normal exam, mucous membranes moist Neck exam: Present: normal inspection. Absent: tenderness, meningismus, lymphadenopathy Respiratory exam: Present: normal lung sounds bilaterally. Absent: respiratory distress, wheezes, rales, rhonchi, stridor Cardiovascular Exam: Present: regular rate, normal rhythm, normal heart sounds. Absent: systolic murmur, diastolic murmur, rubs, gallop, clicks GI/Abdominal exam: Present: soft, normal bowel sounds. Absent: distended, tenderness, guarding, rebound, rigid Extremities exam: Present: normal inspection, full ROM, normal capillary refill. Absent: tenderness, pedal edema, joint swelling, calf tenderness Neurological exam: Present: alert, oriented X3 Psychiatric exam: Present: normal affect, normal mood Skin exam: Present: warm, dry, intact, normal color. Absent: rash Course Vital Signs 07/13/21 07/13/21 07/13/21 14:35 17:39 18:47 Temperature 98.9 F Pulse Rate 86 96 95 Respiratory 24 20 20 Rate Blood Pressure 175/78 168/80 173/87 O2 Sat by Pulse 100 100 100 Oximetry 11/17/21 11/17/21 20:14 21:21 Temperature Pulse Rate 81 89 Respiratory 16 16 Rate Blood Pressure 126/97 133/82 O2 Sat by Pulse 95 100 Oximetry Medical Decision Making - Medical Decision Making 40-year-old female complaining of abdominal pain. Labs, 1 L normal saline, 4 mg of Zofran, KUB ordered. Labs unremarkable from baseline in previous studies. CT abdomen and pelvis ordered due to continuing pain and repeat visit. CT negative for any acute process. 4 mg of Zofran for nausea ordered. Case discussed with Dr. Blood, patient can discharge home. - Lab Data Result diagrams: 07/13/21 15:40 07/13/21 15:40 Lab Results 07/13/21 07/13/21 07/13/21 Range/Units 15:40 15:40 18:39 WBC 17.7 H (3.8-10.6) k/uL RBC 5.12 (3.80-5.40) m/uL Hgb 15.8 (11.4-16.0) gm/dL Hct 44.6 (34.0-46.0) % MCV 87.1 (80.0-100.0) fL MCH 30.9 (25.0-35.0) pg MCHC 35.4 (31.0-37.0) g/dL RDW 12.5 (11.5-15.5) % Plt Count 333 (150-450) k/uL MPV 7.6 Neutrophils % 92 % Lymphocytes % 5 % Monocytes % 1 % Eosinophils % 1 % Basophils % 0 % Neutrophils # 16.2 H (1.3-7.7) k/uL Lymphocytes # 1.0 (1.0-4.8) k/uL Monocytes # 0.2 (0-1.0) k/uL Eosinophils # 0.2 (0-0.7) k/uL Basophils # 0.0 (0-0.2) k/uL Sodium 141 (137-145) mmol/L Potassium 3.5 (3.5-5.1) mmol/L Chloride 106 (98-107) mmol/L Carbon Dioxide 17 L (22-30) mmol/L Anion Gap 18 mmol/L BUN 13 (7-17) mg/dL Creatinine 0.67 (0.52-1.04) mg/dL Est GFR (CKD-EPI)AfAm >90 (>60 ml/min/1.73 sqM) Est GFR (CKD-EPI)NonAf >90 (>60 ml/min/1.73 sqM) Glucose 138 H (74-99) mg/dL Calcium 10.9 H (8.4-10.2) mg/dL Total Bilirubin 0.7 (0.2-1.3) mg/dL AST 35 (14-36) U/L ALT 43 H (4-34) U/L Alkaline Phosphatase 152 H (38-126) U/L Total Protein 9.1 H (6.3-8.2) g/dL Albumin 5.5 H (3.5-5.0) g/dL Amylase 93 (30-110) U/L Lipase 149 (23-300) U/L Urine Color Yellow Urine Appearance Clear (Clear) Urine pH 8.5 H (5.0-8.0) Ur Specific [place] 1.018 (1.001-1.035) Urine Protein Trace H (Negative) Urine Glucose (UA) Negative (Negative) Urine Ketones 3+ H (Negative) Urine Blood Negative (Negative) Urine Nitrite Negative (Negative) Urine Bilirubin Negative (Negative) Urine Urobilinogen <2.0 (<2.0) mg/dL Ur Leukocyte Esterase Negative (Negative) - Radiology Data Radiology results: report reviewed, image reviewed CT abdomen and pelvis: No acute abdominal pelvis process. Disposition Clinical Impression: Abdominal pain, Transaminitis, Nausea vomiting and diarrhea Disposition: HOME SELF-CARE Condition: Stable Instructions (If sedation given, give patient instructions): Abdominal Pain (ED) Additional Instructions: Please return to the Emergency Department if symptoms worsen or any other concerns. Is patient prescribed a controlled substance at d/c from ED?: No Referrals: Digna Alonso MD [Primary Care Provider] - 1-2 days Time of Disposition: 21:45
== END 2021-07-13 22:10 | disposition home or self-care (01) ==
LOC: EC 14:13
DX: R10.9 Unspecified abdominal pain (principal); R11.2 Nausea with vomiting, unspecified; R19.7 Diarrhea, unspecified; R74.01 Elevation of levels of liver transaminase levels; M79.7 Fibromyalgia; F41.9 Anxiety disorder, unspecified; F12.90 Cannabis use, unspecified, uncomplicated; Z79.899 Other long term (current) drug therapy
CPT/HCPCS: 36415; 80053; 82150; 83690; 85025; 81003; 74177; 99284; 96374; 96375 ×2; 96376; 96361; J2765; J2405; J1170; Q9967

== ENCOUNTER 2021-11-19 03:54 | Emergency (ER) | payer MEDICARE, OTHER ==
--- NOTE | 2021-11-19 04:05 | ED ---
Recheck HPI - General Chief Complaint: Nausea/Vomiting/Diarrhea Stated Complaint: vomiting Time Seen by Provider: 11/19/21 04:01 Source: patient, family, RN notes reviewed, old records reviewed Mode of arrival: ambulatory Limitations: no limitations - History of Present Illness Initial Comments: This is a 41-year-old female to the ER for evaluation. Patient has history of irritable bowel syndrome with ER visits for irritable syndrome. Patient coming in the ER for evaluation of worsening symptoms. Nausea vomiting diarrhea. No recent travel history no sick contacts. No other change in symptoms. MD Complaint: abnormal lab (Significant abdominal pain with nausea vomiting) -: days(s) Returns Today for: persistent/worsening pain related to initial visit Symptoms Since Prior Visit: worsening pain Associated Symptoms: nausea, abdominal pain Treatments Prior to Arrival: other medications, Given Pain Meds on - Related Data Home Medications Medication Instructions Recorded Confirmed HYDROcodone/APAP 10-325MG [[place] 1 tab PO QID PRN 04/03/17 07/13/21 10-325] Loratadine [Claritin] 10 mg PO DAILY 04/03/17 07/13/21 Ergocalciferol [Vitamin D2 50,000 unit PO SA 02/13/20 07/13/21 (DRISDOL)] Dicyclomine [Bentyl] 20 mg PO TID PRN 06/11/20 07/13/21 Pantoprazole Sodium [Protonix] 40 mg PO BID 06/11/20 07/13/21 FLUoxetine HCL [PROzac] 20 mg PO DAILY 09/28/20 07/13/21 Metoclopramide [Reglan] 5 mg PO TID PRN 07/13/21 07/13/21 Ondansetron Odt [Zofran Odt] 4 mg PO Q8HR PRN 07/13/21 07/13/21 Prochlorperazine Suppository 25 mg RECTAL BID PRN 07/13/21 07/13/21 [Compazine] Allergies Allergy/AdvReac Type Severity Reaction Status Date / Time propoxyphene Allergy Rash/Hives Verified 11/19/21 04:01 [From Sissy] Review of Systems ROS Statement: Those systems with pertinent positive or pertinent negative responses have been documented in the HPI. ROS Other: All systems not noted in ROS Statement are negative. Past Medical History Past Medical History: Fibromyalgia, Thyroid Disorder Additional Past Medical History / Comment(s): DDD, bulging discs, neuropathy in legs, thyroid nodules, anemia, environmental allergies, constipation/diarrhea, IBS diagnosed in 2019, chronic gastritis. History of Any Multi-Drug Resistant Organisms: None Reported Past Surgical History: Hysterectomy, Orthopedic Surgery Additional Past Surgical History / Comment(s): Right wrist and forearm surgery, D&C, mass on vocal cords - surgery and biopsy. Past Anesthesia/Blood Transfusion Reactions: Postoperative Nausea & Vomiting (PONV) Additional Past Anesthesia/Blood Transfusion Reaction / Comment(s): Constipation post-op. Past Psychological History: Anxiety Smoking Status: Never smoker Past Alcohol Use History: None Reported Past Drug Use History: Marijuana - Past Family History Mother Family Medical History: No Reported History Father Additional Family Medical History / Comment(s): "Cardiovascular swelling". General Exam Limitations: no limitations General appearance: alert, in no apparent distress Head exam: Present: atraumatic, normocephalic, normal inspection Eye exam: Present: normal appearance, PERRL, EOMI. Absent: scleral icterus, co njunctival injection, periorbital swelling ENT exam: Present: normal exam, mucous membranes moist Neck exam: Present: normal inspection. Absent: tenderness, meningismus, lymphadenopathy Respiratory exam: Present: normal lung sounds bilaterally. Absent: respiratory distress, wheezes, rales, rhonchi, stridor Cardiovascular Exam: Present: regular rate, normal rhythm, normal heart sounds. Absent: systolic murmur, diastolic murmur, rubs, gallop, clicks GI/Abdominal exam: Present: soft, normal bowel sounds. Absent: distended, tenderness, guarding, rebound, rigid Extremities exam: Present: normal inspection, full ROM, normal capillary refill. Absent: tenderness, pedal edema, joint swelling, calf tenderness Back exam: Present: normal inspection Neurological exam: Present: alert, oriented X3, CN II-XII intact Psychiatric exam: Present: normal affect, normal mood Skin exam: Present: warm, dry, intact, normal color. Absent: rash Course Vital Signs 11/19/21 11/19/21 11/19/21 03:57 06:10 08:29 Temperature 98.7 F Pulse Rate 104 H 109 H 82 Respiratory 22 18 19 Rate Blood Pressure 124/74 98/66 98/68 O2 Sat by Pulse 98 95 82 L Oximetry 03/26/22 03/26/22 11:30 13:14 Temperature 98.0 F 98.2 F Pulse Rate 87 80 Respiratory 16 18 Rate Blood Pressure 100/87 112/78 O2 Sat by Pulse 98 98 Oximetry - Reevaluation(s) Reevaluation #1: 11/19/21 Medical record is reviewed Patient symptoms are improved here in the emergency department Patient informed results and questions answered Medical Decision Making - Medical Decision Making 41 female to the emergency department with persistent nausea vomiting abdominal pain severe. Symptoms are significantly improved here in the ER and be discharged home - Lab Data Result diagrams: 11/19/21 04:29 11/19/21 04:29 Lab Results 11/19/21 11/19/21 11/19/21 Range/Units 04:29 04:29 04:29 WBC 19.5 H (3.8-10.6) k/uL RBC 5.06 (3.80-5.40) m/uL Hgb 15.5 (11.4-16.0) gm/dL Hct 43.7 (34.0-46.0) % MCV 86.5 (80.0-100.0) fL MCH 30.6 (25.0-35.0) pg MCHC 35.4 (31.0-37.0) g/dL RDW 13.7 (11.5-15.5) % Plt Count 314 (150-450) k/uL MPV 7.5 Neutrophils % 86 % Lymphocytes % 10 % Monocytes % 3 % Eosinophils % 1 % Basophils % 0 % Neutrophils # 16.7 H (1.3-7.7) k/uL Lymphocytes # 1.9 (1.0-4.8) k/uL Monocytes # 0.5 (0-1.0) k/uL Eosinophils # 0.1 (0-0.7) k/uL Basophils # 0.0 (0-0.2) k/uL Sodium 137 (137-145) mmol/L Potassium 3.7 (3.5-5.1) mmol/L Chloride 100 (98-107) mmol/L Carbon Dioxide 17 L (22-30) mmol/L Anion Gap 20 mmol/L BUN 40 H (7-17) mg/dL Creatinine 1.31 H (0.52-1.04) mg/dL Est GFR (CKD-EPI)AfAm 58 (>60 ml/min/1.73 sqM) Est GFR (CKD-EPI)NonAf 50 (>60 ml/min/1.73 sqM) Glucose 148 H (74-99) mg/dL Plasma Lactic Acid Zaid 1.8 (0.7-2.0) mmol/L Calcium 10.6 H (8.4-10.2) mg/dL Phosphorus 3.5 (2.5-4.5) mg/dL Magnesium 1.8 (1.6-2.3) mg/dL Total Bilirubin 1.2 (0.2-1.3) mg/dL AST 47 H (14-36) U/L ALT 72 H (4-34) U/L Alkaline Phosphatase 157 H (38-126) U/L Total Protein 10.0 H (6.3-8.2) g/dL Albumin 5.6 H (3.5-5.0) g/dL Urine Color Urine Appearance (Clear) Urine pH (5.0-8.0) Ur Specific [place] (1.001-1.035) Urine Protein (Negative) Urine Glucose (UA) (Negative) Urine Ketones (Negative) Urine Blood (Negative) Urine Nitrite (Negative) Urine Bilirubin (Negative) Urine Urobilinogen (<2.0) mg/dL Ur Leukocyte Esterase (Negative) Urine RBC (0-5) /hpf Urine WBC (0-5) /hpf Ur Squamous Epith Cells (0-4) /hpf Hyaline Casts (0-2) /lpf Urine Mucus (None) /hpf 11/19/ Range/Units 06:10 WBC (3.8-10.6) k/uL RBC (3.80-5.40) m/uL Hgb (11.4-16.0) gm/dL Hct (34.0-46.0) % MCV (80.0-100.0) fL MCH (25.0-35.0) pg MCHC (31.0-37.0) g/dL RDW (11.5-15.5) % Plt Count (150-450) k/uL MPV Neutrophils % % Lymphocytes % % Monocytes % % Eosinophils % % Basophils % % Neutrophils # (1.3-7.7) k/uL Lymphocytes # (1.0-4.8) k/uL Monocytes # (0-1.0) k/uL Eosinophils # (0-0.7) k/uL Basophils # (0-0.2) k/uL Sodium (137-145) mmol/L Potassium (3.5-5.1) mmol/L Chloride (98-107) mmol/L Carbon Dioxide (22-30) mmol/L Anion Gap mmol/L BUN (7-17) mg/dL Creatinine (0.52-1.04) mg/dL Est GFR (CKD-EPI)AfAm (>60 ml/min/1.73 sqM) Est GFR (CKD-EPI)NonAf (>60 ml/min/1.73 sqM) Glucose (74-99) mg/dL Plasma Lactic Acid Zaid (0.7-2.0) mmol/L Calcium (8.4-10.2) mg/dL Phosphorus (2.5-4.5) mg/dL Magnesium (1.6-2.3) mg/dL Total Bilirubin (0.2-1.3) mg/dL AST (14-36) U/L ALT (4-34) U/L Alkaline Phosphatase (38-126) U/L Total Protein (6.3-8.2) g/dL Albumin (3.5-5.0) g/dL Urine Color Yellow Urine Appearance Cloudy H (Clear) Urine pH 5.5 (5.0-8.0) Ur Specific [place] 1.022 (1.001-1.035) Urine Protein 2+ H (Negative) Urine Glucose (UA) Negative (Negative) Urine Ketones 1+ H (Negative) Urine Blood Small H (Negative) Urine Nitrite Negative (Negative) Urine Bilirubin Negative (Negative) Urine Urobilinogen <2.0 (<2.0) mg/dL Ur Leukocyte Esterase Small H (Negative) Urine RBC 1 (0-5) /hpf Urine WBC 9 H (0-5) /hpf Ur Squamous Epith Cells 2 (0-4) /hpf Hyaline Casts 116 H (0-2) /lpf Urine Mucus Many H (None) /hpf Disposition Clinical Impression: Abdominal pain, Transaminitis, Nausea vomiting and diarrhea, Intractable vomiting with nausea, Gastroenteritis, Dehydration Disposition: HOME SELF-CARE Instructions (If sedation given, give patient instructions): Acute Nausea and Vomiting (DC) Is patient prescribed a controlled substance at d/c from ED?: No Referrals: Digna Alonso MD [Primary Care Provider] - 1-2 days
[2021-11-19] MEDS ORDERED: SODIUM CHLORIDE 0.9% 1,000 ML IV STA ×2 (04:27)
[2021-11-19] MEDS ORDERED: PROCHLORPERAZINE INJ 10 MG/2 ML VIAL IVP STA (04:27)
[2021-11-19] MEDS ORDERED: diphenhydrAMINE 50 MG/ML 1 ML VIAL IVP STA (04:27)
[2021-11-19] MEDS ORDERED: SODIUM CHLORIDE 0.9% 500 ML 500 ML IV STA (04:27)
[2021-11-19] MEDS ORDERED: LORazepam 2 MG/ML INJ IV STA (04:27)
[2021-11-19 04:37] LABS: Basophils % (A) 0 %; Eosinophils # (A) 0.1 k/uL (0-0.7); Eosinophils % (A) 1 %; HCT 43.7 % (34.0-46.0); HGB 15.5 gm/dL (11.4-16.0); Lymphocytes # (A) 1.9 k/uL (1.0-4.8); Lymphocytes % (A) 10 %; MCH 30.6 pg (25.0-35.0); MCHC 35.4 g/dL (31.0-37.0); MCV 86.5 fL (80.0-100.0); Mean Platelet Volume 7.5; Monocytes # (A) 0.5 k/uL (0-1.0); Monocytes % (A) 3 %; Neutrophils # (A) 16.7 k/uL (1.3-7.7); Neutrophils % (A) 86 %; Platelet Count 314 k/uL (150-450); RBC 5.06 m/uL (3.80-5.40); RDW 13.7 % (11.5-15.5); WBC 19.5 k/uL (3.8-10.6)
[2021-11-19 04:47] LABS: Albumin 5.6 g/dL (3.5-5.0); Calcium 10.6 mg/dL (8.4-10.2); Magnesium 1.8 mg/dL (1.6-2.3); Phosphorus 3.5 mg/dL (2.5-4.5); Potassium 3.7 mmol/L (3.5-5.1); Total Bilirubin 1.2 mg/dL (0.2-1.3)
[2021-11-19 06:32] LABS: Appearance,Urine Cloudy (Clear); Bilirubin,Urine Negative (Negative); Blood,Urine Small (Negative); Color,Urine Yellow; Glucose,Urine (UA) Negative (Negative); Hyaline Casts,Urine 116 /lpf (0-2); Ketones,Urine 1+ (Negative); Leukocyte Esterase,Urine Small (Negative); Mucus,Urine Many /hpf; Nitrite,Urine Negative (Negative); PH, Urine 5.5 (5.0-8.0); Protein,Urine 2+ (Negative); RBC,Urine 1 /hpf (0-5); Specific Gravity,Urine 1.022 (1.001-1.035); Squamous Epithelial Cell,Urine 2 /hpf (0-4); Urobilinogen,Urine <2.0 mg/dL (<2.0); WBC,Urine 9 /hpf (0-5)
[2021-11-19] MEDS ORDERED: HYDROmorphone 1 MG/ML 1 ML SYRINGE IVP STA (12:46)
[2021-11-19 13:21] VITALS: BP 112/78; PULSE 80; RESP 18; TEMP 98.2
== END 2021-11-19 13:14 | disposition home or self-care (01) ==
LOC: EC 03:54
DX: K52.9 Noninfective gastroenteritis and colitis, unspecified (principal); R11.2 Nausea with vomiting, unspecified; E86.0 Dehydration; R74.01 Elevation of levels of liver transaminase levels; M79.7 Fibromyalgia; E07.9 Disorder of thyroid, unspecified; F41.9 Anxiety disorder, unspecified; F12.90 Cannabis use, unspecified, uncomplicated; Z90.710 Acquired absence of both cervix and uterus
CPT/HCPCS: 99284; 96374; 96375 ×3; 96361 ×9; 36415; 80053; 83605; 83735; 84100; 85025; 81001; J2060; J1200; J0780; J1170

== ENCOUNTER 2022-01-08 08:04 | Observation (INO) | payer MEDICARE, OTHER ==
[2022-01-08] MEDS ORDERED: diphenhydrAMINE 50 MG/ML 1 ML VIAL IVP STA ×2 (08:52→13:00)
[2022-01-08] MEDS ORDERED: KETOROLAC 15 MG/ML 1 ML VIAL IVP STA (08:52)
[2022-01-08] MEDS ORDERED: ONDANSETRON 4 MG/2 ML VIAL IVP STA (08:52)
[2022-01-08] MEDS ORDERED: SODIUM CHLORIDE 0.9% 1,000 ML IV STA (08:52)
[2022-01-08 09:11] LABS: Basophils % (A) 0 %; Eosinophils # (A) 0.1 k/uL (0-0.7); Eosinophils % (A) 1 %; HCT 38.7 % (34.0-46.0); HGB 13.7 gm/dL (11.4-16.0); Lymphocytes # (A) 1.6 k/uL (1.0-4.8); Lymphocytes % (A) 15 %; MCH 30.8 pg (25.0-35.0); MCHC 35.4 g/dL (31.0-37.0); MCV 86.9 fL (80.0-100.0); Mean Platelet Volume 7.2; Monocytes # (A) 0.3 k/uL (0-1.0); Monocytes % (A) 3 %; Neutrophils # (A) 8.4 k/uL (1.3-7.7); Neutrophils % (A) 80 %; Platelet Count 267 k/uL (150-450); RBC 4.45 m/uL (3.80-5.40); RDW 13.4 % (11.5-15.5); WBC 10.5 k/uL (3.8-10.6)
--- NOTE | 2022-01-08 09:19 | ED ---
Nausea/Vomiting/Diarrhea HPI - General Chief complaint: Nausea/Vomiting/Diarrhea Stated complaint: Revisit here 01/07 Time Seen by Provider: 01/08/22 08:42 Source: patient, RN notes reviewed, old records reviewed Mode of arrival: wheelchair Limitations: no limitations - History of Present Illness Initial comments: Patient is a 40-year-old female with history of IBS, presenting to the emergency Department with complaints of generalized abdominal pain, nausea, vomiting that started early this morning. Patient states this is consistent with her normal IBS flares. She states she was here yesterday for same complaint, felt better for most of the day and symptoms started again early this morning. She did not try any of her medications this morning. She denies any fevers or chills, no chest pain or shortness of breath. Patient is no further complaints at this time. Patient's vital signs are stable upon arrival. - Related Data Home Medications Medication Instructions Recorded Confirmed HYDROcodone/APAP 10-325MG [[place] 1 tab PO QID PRN 04/03/17 07/13/21 10-325] Loratadine [Claritin] 10 mg PO DAILY 04/03/17 07/13/21 Ergocalciferol [Vitamin D2 50,000 unit PO SA 02/13/20 07/13/21 (DRISDOL)] Dicyclomine [Bentyl] 20 mg PO TID PRN 06/11/20 07/13/21 Pantoprazole Sodium [Protonix] 40 mg PO BID 06/11/20 07/13/21 FLUoxetine HCL [PROzac] 20 mg PO DAILY 09/28/20 07/13/21 Metoclopramide [Reglan] 5 mg PO TID PRN 07/13/21 07/13/21 Ondansetron Odt [Zofran Odt] 4 mg PO Q8HR PRN 07/13/21 07/13/21 Prochlorperazine Suppository 25 mg RECTAL BID PRN 07/13/21 07/13/21 [Compazine] Previous Rx's Medication Instructions Recorded Metoclopramide [Reglan] 5 mg PO TID PRN #30 tab 01/06/22 Allergies Allergy/AdvReac Type Severity Reaction Status Date / Time propoxyphene Allergy Rash/Hives Verified 01/08/22 08:16 [From Darvocet-N] Review of Systems ROS Statement: Those systems with pertinent positive or pertinent negative responses have been documented in the HPI. ROS Other: All systems not noted in ROS Statement are negative. Past Medical History Past Medical History: Fibromyalgia, Thyroid Disorder Additional Past Medical History / Comment(s): DDD, bulging discs, neuropathy in legs, thyroid nodules, anemia, environmental allergies, constipation/diarrhea, IBS diagnosed in 2019, chronic gastritis. History of Any Multi-Drug Resistant Organisms: None Reported Past Surgical History: Hysterectomy, Orthopedic Surgery Additional Past Surgical History / Comment(s): Right wrist and forearm surgery, D&C, mass on vocal cords - surgery and biopsy. Past Anesthesia/Blood Transfusion Reactions: Postoperative Nausea & Vomiting (PONV) Additional Past Anesthesia/Blood Transfusion Reaction / Comment(s): Constipation post-op. Past Psychological History: Anxiety Smoking Status: Never smoker Past Alcohol Use History: None Reported Past Drug Use History: Marijuana - Past Family History Mother Family Medical History: No Reported History Father Additional Family Medical History / Comment(s): "Cardiovascular swelling". General Exam - General Exam Comments Initial Comments: GENERAL: Patient is well-developed and well-nourished. Patient is nontoxic and in mild acute distress, actively vomiting. HEAD: Atraumatic, normocephalic. EYES: Pupils equal round and reactive to light, extraocular movements intact, sclera anicteric, conjunctiva are normal. Eyelids were unremarkable. ENT: Nares patent, oropharynx clear without exudates. Moist mucous membranes. NECK: Normal range of motion, supple without lymphadenopathy or JVD. LUNGS: Unlabored respirations. Breath sounds clear to auscultation bilaterally and equal. No wheezes rales or rhonchi. HEART: Regular rate and rhythm without murmurs, rubs or gallops. ABDOMEN: Soft, generalized abdominal discomfort, no specific area, normoactive bowel sounds. No guarding, no rebound. No masses appreciated. MUSCULOSKELETAL: Normal extremities with adequate strength and normal range of motion, no pitting or edema. No clubbing or cyanosis. NEUROLOGICAL: Patient is alert and oriented x 3. Symmetrical smile. Normal speech, normal gait. PSYCH: Normal mood, normal affect. SKIN: Warm, Dry, normal turgor, no rashes or lesions noted. Limitations: no limitations Course Vital Signs 01/08/22 01/08/22 08:14 09:16 Temperature 98.2 F Pulse Rate 84 89 Respiratory 16 16 Rate Blood Pressure 155/75 141/64 O2 Sat by Pulse 100 95 Oximetry Medical Decision Making - Medical Decision Making Patient is a 41-year-old female here with history of IBS, presenting with nausea and vomiting, generalized abdominal discomfort since early this morning. This is patient's third visit in 3 days for same complaint. Vital stable upon arrival, patient actively vomiting during exam. Labs show hypokalemia at 3.1, ordered 40 oral potassium however patient has not been able to tolerate this. Lactic acid is normal at 1.6, mild transaminitis which is at her baseline. Patient has been given multiple medications for nausea and vomiting and patient continues to have multiple vomiting episodes while here in the ER. Given patient's third visit to the ER for same complaint, hypokalemia, patient will be admitted for intractable nausea and vomiting. I spoke with Dr. Smith who agrees to admission. Case discussed with Dr. Arcos. - Lab Data Result diagrams: 01/08/22 08:58 01/08/22 08:58 Lab Results 01/08/22 01/08/22 01/08/22 Range/Units 08:58 08:58 08:58 WBC 10.5 (3.8-10.6) k/uL RBC 4.45 (3.80-5.40) m/uL Hgb 13.7 (11.4-16.0) gm/dL Hct 38.7 (34.0-46.0) % MCV 86.9 (80.0-100.0) fL MCH 30.8 (25.0-35.0) pg MCHC 35.4 (31.0-37.0) g/dL RDW 13.4 (11.5-15.5) % Plt Count 267 (150-450) k/uL MPV 7.2 Neutrophils % 80 % Lymphocytes % 15 % Monocytes % 3 % Eosinophils % 1 % Basophils % 0 % Neutrophils # 8.4 H (1.3-7.7) k/uL Lymphocytes # 1.6 (1.0-4.8) k/uL Monocytes # 0.3 (0-1.0) k/uL Eosinophils # 0.1 (0-0.7) k/uL Basophils # 0.0 (0-0.2) k/uL Sodium 138 (137-145) mmol/L Potassium 3.1 L (3.5-5.1) mmol/L Chloride 105 (98-107) mmol/L Carbon Dioxide 18 L (22-30) mmol/L Anion Gap 15 mmol/L BUN 15 (7-17) mg/dL Creatinine 0.74 (0.52-1.04) mg/dL Est GFR (CKD-EPI)AfAm >90 (>60 ml/min/1.73 sqM) Est GFR (CKD-EPI)NonAf >90 (>60 ml/min/1.73 sqM) Glucose 123 H (74-99) mg/dL Plasma Lactic Acid Zaid 1.6 (0.7-2.0) mmol/L Calcium 9.7 (8.4-10.2) mg/dL Total Bilirubin 0.8 (0.2-1.3) mg/dL AST 29 (14-36) U/L ALT 36 H (4-34) U/L Alkaline Phosphatase 131 H (38-126) U/L Total Protein 8.2 (6.3-8.2) g/dL Albumin 5.2 H (3.5-5.0) g/dL Lipase 283 (23-300) U/L Disposition Clinical Impression: Intractable vomiting with nausea, Hypokalemia Disposition: ADMITTED IP TO THIS [facility] Condition: Stable Referrals: Digna Alonso MD [Primary Care Provider] - 1-2 days Decision Date: 01/08/22 Decision Time: 11:54
[2022-01-08 09:24] LABS: ALT 36 U/L (4-34); AST 29 U/L (14-36); African American GFR (CKD) >90 (>60 ml/min/1.73 sqM); Albumin 5.2 g/dL (3.5-5.0); Alkaline Phosphatase 131 U/L (38-126); Anion Gap 15 mmol/L; Blood Urea Nitrogen 15 mg/dL (7-17); Calcium 9.7 mg/dL (8.4-10.2); Carbon Dioxide 18 mmol/L (22-30); Chloride 105 mmol/L (98-107); Glucose 123 mg/dL (74-99); Lipase 283 U/L (23-300); Non-African American GFR(CKD) >90 (>60 ml/min/1.73 sqM); Potassium 3.1 mmol/L (3.5-5.1); Sodium 138 mmol/L (137-145); Total Bilirubin 0.8 mg/dL (0.2-1.3); Total Protein 8.2 g/dL (6.3-8.2)
[2022-01-08] MEDS ORDERED: POTASSIUM CHLORIDE ER 20 MEQ TAB.ER PO STA (09:26)
[2022-01-08] MEDS ORDERED: DICYCLOMINE 10 MG/ML 2 ML AMP IM STA (10:07)
[2022-01-08] MEDS ORDERED: METOCLOPRAMIDE 5 MG/ML 2 ML VIAL IVP STA (10:42)
[2022-01-08] MEDS ORDERED: MORPHINE SULFATE 2 MG/ML SYRINGE IVP ONE (11:49)
[2022-01-08] MEDS ORDERED: KETOROLAC 15 MG/ML 1 ML VIAL IVP PRN (11:49)
[2022-01-08] MEDS ORDERED: NALOXONE 0.4 MG/ML 1 ML VIAL IV PRN (11:49)
[2022-01-08] MEDS ORDERED: ONDANSETRON 4 MG/2 ML VIAL IVP PRN (11:49)
[2022-01-08] MEDS ORDERED: SODIUM CHLORIDE 0.9% 1,000 ML IV SCH (12:00)
[2022-01-08] MEDS ORDERED: METOCLOPRAMIDE 5 MG/ML 2 ML VIAL IVP PRN (12:59)
[2022-01-08] MEDS ORDERED: LORazepam 2 MG/ML INJ IV STA (13:01)
[2022-01-08] MEDS ORDERED: ALPRAZolam 0.5 MG TAB PO PRN (13:03)
--- NOTE | 2022-01-08 13:06 | P.HPIM ---
History of Present Illness This is a pleasant 41 years old female with past medical history of fibromyalgia, nausea vomiting. Presents because of recurrent nausea vomiting of 2 days' duration. Patient thinks her symptoms are due to her flareup of irritable bowel syndrome, because she started up when she woke up with loose bowel movement and vomiting and thus usually it starts H time, she states she has these attacks every 2 months. She's been vomiting every 10 minutes, associated with periumbilical abdominal pain about 7-8/10 in severity, generalized but nonradiating. Nonspecific in character. She has one episode of loose pale bowel movement at a rate of its daily. Also associated with generalized anxiety, she is shaking and anxious with tremor. She takes Prozac for anxiety and Xanax as needed at home. says usually her vomiting is controlled with Zofran, Reglan, Protonix, Benadryl and Bentyl. She states she has history of hysterectomy because of abnormal administration. MAPS was checked and she is on [place] 10. She denies smoking, alcohol. She smokes marijuana at times but she hasn't smoked for about a month. She is hemodynamically stable Labs including CBC, BMP and liver enzymes are unremarkable except for mild hypokalemia of 3.1, lipase normal. 3. Bilirubin normal 0.8, AST normal at 29 and ALT slightly high 36. She was treated symptomatically with Bentyl, Toradol, Reglan and morphine as well as IV fluids with little benefit so decided to admit her to the hospital. Currently she is on normal saline 100 mL per hour. MAPS was checked and patient is on [place] [address] Marcelo Review of Systems CONSTITUTIONAL: No fever, no malaise, no fatigue. HEENT: No recent visual problems or hearing problems. Denied any sore throat. CARDIOVASCULAR: No orthopnea, PND, no palpitations, no syncope. PULMONARY: No shortness of breath, no cough, no hemoptysis. GASTROINTESTINAL: No constipation. Normoactive bowel sounds. NEUROLOGICAL: No headaches, no weakness, no numbness. HEMATOLOGICAL: Denies any bleeding or petechiae. GENITOURINARY: Denies any burning micturition, frequency, or urgency. MUSCULOSKELETAL/RHEUMATOLOGICAL: Denies any joint pain, swelling, or any muscle pain. ENDOCRINE: Denies any polyuria or polydipsia. Past Medical History Past Medical History: Fibromyalgia, Thyroid Disorder Additional Past Medical History / Comment(s): DDD, bulging discs, neuropathy in legs, thyroid nodules, anemia, environmental allergies, constipation/diarrhea, IBS diagnosed in 2019, chronic gastritis. History of Any Multi-Drug Resistant Organisms: None Reported Past Surgical History: Hysterectomy, Orthopedic Surgery Additional Past Surgical History / Comment(s): Right wrist and forearm surgery, D&C, mass on vocal cords - surgery and biopsy. Past Anesthesia/Blood Transfusion Reactions: Postoperative Nausea & Vomiting (PONV) Additional Past Anesthesia/Blood Transfusion Reaction / Comment(s): Constipation post-op. Past Psychological History: Anxiety Smoking Status: Never smoker Past Alcohol Use History: None Reported Past Drug Use History: Marijuana - Past Family History Mother Family Medical History: No Reported History Father Additional Family Medical History / Comment(s): "Cardiovascular swelling". Medications and Allergies Home Medications Medication Instructions Recorded Confirmed Type HYDROcodone/APAP 10-325MG [[place] 1 tab PO QID PRN 04/03/17 07/13/21 History 10-325] Loratadine [Claritin] 10 mg PO DAILY 04/03/17 07/13/21 History Ergocalciferol [Vitamin D2 50,000 unit PO SA 02/13/20 07/13/21 History (DRISDOL)] Dicyclomine [Bentyl] 20 mg PO TID PRN 06/11/20 07/13/21 History Pantoprazole Sodium [Protonix] 40 mg PO BID 06/11/20 07/13/21 History FLUoxetine HCL [PROzac] 20 mg PO DAILY 09/28/20 07/13/21 History Metoclopramide [Reglan] 5 mg PO TID PRN 07/13/21 07/13/21 History Ondansetron Odt [Zofran Odt] 4 mg PO Q8HR PRN 07/13/21 07/13/21 History Prochlorperazine Suppository 25 mg RECTAL BID PRN 07/13/21 07/13/21 History [Compazine] Metoclopramide [Reglan] 5 mg PO TID PRN #30 tab 01/06/22 Rx Allergies Allergy/AdvReac Type Severity Reaction Status Date / Time propoxyphene Allergy Rash/Hives Verified 01/08/22 08:16 [From Darvocet-N] Physical Exam Vitals: Vital Signs Temp Pulse Resp BP Pulse Ox 01/08/22 11:56 83 H 151/78 98 01/08/22 09:16 89 16 141/64 95 01/08/22 08:14 98.2 F 84 16 155/75 100 Intake and Output 01/07/22 01/08/22 01/08/22 22:59 06:59 14:59 Other: Weight 73.936 kg -GENERAL: The patient is alert and oriented x3, not in any acute distress. Well developed, well nourished. Patient looked very anxious with tremor HEENT: Pupils are round and equally reacting to light. EOMI. No scleral icterus. No conjunctival pallor. Normocephalic, atraumatic. No pharyngeal erythema. No thyromegaly. CARDIOVASCULAR: S1 and S2 present. No murmurs, rubs, or gallops. PULMONARY: Chest is clear to auscultation, no wheezing or crackles. -ABDOMEN: Soft, periumbilical tenderness with no rebound tenderness or guarding, nondistended, normoactive bowel sounds. No palpable organomegaly. MUSCULOSKELETAL: No joint swelling or deformity. EXTREMITIES: No cyanosis, clubbing, or pedal edema. NEUROLOGICAL: Gross neurological examination did not reveal any focal deficits. SKIN: No rashes. No petechiae Results CBC & Chem 7: 01/08/22 08:58 01/08/22 08:58 Labs: Abnormal Lab Results - Last 24 Hours (Table) 01/08/22 01/08/22 Range/Units 08:58 08:58 Neutrophils # 8.4 H (1.3-7.7) k/uL Potassium 3.1 L (3.5-5.1) mmol/L Carbon Dioxide 18 L (22-30) mmol/L Glucose 123 H (74-99) mg/dL ALT 36 H (4-34) U/L Alkaline Phosphatase 131 H (38-126) U/L Albumin 5.2 H (3.5-5.0) g/dL Assessment and Plan Assessment: Intractable nausea vomiting Associated with periumbilical abdominal pain most likely related to flareup of irritable bowel syndrome Generalized anxiety disorder History of fibromyalgia History of degenerative disc disease and bulging disc Peripheral neuropathy Plan: This is a pleasant 41 years old female who presents with abdominal pain and nausea vomiting. Continue symptomatic treatment with Reglan and Compazine Continue with intravenous hydration Continue with Prozac Continue with IV hydration give one-time dose of Ativan also we will give Benadryl 1 as an T H1 receptor, also we'll give scopolamine which works on muscarinic on M3 receptor Also patient may benefit from metoclopramide as an T dopaminergic receptor on D2. And Zofran anti-serotonin receptor area Also we'll give Protonix Clear liquid diet Labs and medication were reviewed.. Continue same treatment. Continue with symptomatic treatment. Resume home medication. Monitor lytes and vitals. DVT and GI prophylaxis. Further recommendations depends on the clinical course of the patient DVT prophylaxis: Subcutaneous heparin GI Prophylaxis: Ppi Prognosis is guarded
[2022-01-08] MEDS ORDERED: SCOPOLAMINE 1 MG/72 HR PATCH TRANSDERM SCH (13:15)
[2022-01-08] MEDS: PANTOPRAZOLE 40 MG/10 ML VIAL IVP SCH (15:18)
[2022-01-08] MEDS: DEXTROSE 5%-0.9% NACL 1,000 ML IV SCH (16:18)
[2022-01-08] MEDS: MORPHINE SULFATE 4 MG/ML SYRINGE IV PRN ×2 (16:28→20:23)
[2022-01-08] MEDS ORDERED: hydrALAZINE HCL 20 MG/ML 1 ML VIAL IVP PRN (17:52)
[2022-01-08] MEDS ORDERED: Magnesium Replacement Protocol 1 EACH MISC MISCELLANE PRN (17:53)
[2022-01-08] MEDS ORDERED: Potassium Replacement Protocol 1 EACH MISC MISCELLANE PRN (17:53)
[2022-01-09] MEDS: MORPHINE SULFATE 4 MG/ML SYRINGE IV PRN (02:41)
[2022-01-09] MEDS: DEXTROSE 5%-0.9% NACL 1,000 ML IV SCH ×2 (04:43→13:27)
[2022-01-09] MEDS: PANTOPRAZOLE 40 MG/10 ML VIAL IVP SCH (08:28)
[2022-01-09 09:40] LABS: Basophils # (A) 0.04 X 10*3/uL (0.00-0.10); Basophils % (A) 0.4 %; Eosinophils # (A) 0 X 10*3/uL (0.04-0.35); Eosinophils % (A) 0 %; HCT 38.2 % (37.2-46.3); HGB 12.8 g/dL (12.0-15.0); Immature Grans, Automated 0.3 %; Lymphocytes # (A) 3.02 X 10*3/uL (0.90-5.00); Lymphocytes % (A) 32.6 %; MCHC 33.5 g/dL (32.0-37.0); MCV 89.5 fL (80.0-97.0); Mean Platelet Volume 10.3 fL (9.5-12.2); Monocytes # (A) 0.54 X 10*3/uL (0.20-1.00); Monocytes % (A) 5.8 %; NRBC Per 100 WBC 0 /100 WBCS (0.0-0.0); Neutrophils # (A) 5.62 X 10*3/uL (1.80-7.70); Neutrophils % (A) 60.9 %; Platelet Count 237 X 10*3/uL (140-440); RBC 4.27 X 10*6/uL (4.10-5.20); RDW 12.9 % (11.5-14.5); WBC 9.25 X 10*3/uL (4.50-10.00)
[2022-01-09 09:55] LABS: African American GFR (CKD) 90.8 (60.0-200.0); Anion Gap 8.9 mmol/L (10.00-18.00); BUN/Creat Ratio 9.67 Ratio (12.00-20.00); Blood Urea Nitrogen 8.7 mg/dL (9.0-27.0); Calcium 9.2 mg/dL (8.7-10.3); Carbon Dioxide 28.1 mmol/L (20.0-27.5); Magnesium 2.3 mg/dL (1.5-2.4); Non-African American GFR(CKD) 78.3 (60.0-200.0); Potassium 3.8 mmol/L (3.5-5.5)
[2022-01-09] MEDS ORDERED: DEXTROSE 5%-0.9% NACL 1,000 ML IV SCH (13:30)
--- NOTE | 2022-01-09 14:09 | P.DS ---
Providers Date of admission: 01/08/22 12:10 Attending physician: Alejandro Smith MD Primary care physician: Gavin Chan [facility] Course: Final Diagnosis Intractable nausea vomiting with associated periumbilical abdominal pain secondary to flareup of irritable bowel syndrome Irritable Bowel syndrome Generalized anxiety disorder History of fibromyalgia History degenerative disc disease and bulging disc Peripheral neuropathy Full code Discharge disposition Patient is stable for discharge home. Continue oral Reglan and oral Zofran as needed for nausea. Increase diet as tolerated. Follow up with primary care the next 2-3 days and keep appointment with Dr. Hermelinda Allison for February of this year. Hospital Course This is a pleasant 41-year-old female presents to the hospital with complaints of generalized abdominal pain as well as nausea vomiting. Patient was seen in the ER and given oral Reglan and was told to return if symptoms worsened. She states she was unable to keep any fluids down and pain continued so she returned to the hospital. Patient denied any fever or chills there is no chest pain or shortness of breath. Patient is remaining afebrile, heart rate 70 normal sinus rhythm, blood pressure 2 or 67, 96% room air. Labs on admission were unrema rkable patient's neutrophil count was high at 8.4, potassium 3.1, CO2 18, glucose 123, ALT 36, alk phos 131 which appears chronic for this patient, albumin 5.2. Lipase normal at 23. Patient followed Dr. Rousseau in the past for IBS, and has an appointment scheduled with Dr Cliff Allison in February of this year. She takes Bentyl at home for symptoms. Other past medical history includes fibromyalgia, hypothyroidism, thyroid nodules, degenerative disc disease with bulging disks, neuropathy lower extremities, anemia, chronic gastritis, hysterectomy, D&C, vocal cord surgery with biopsy secondary to a mass, history of smoking 1 pack per day quitting in 2019, occasional marijuana use. Patient was started on clear liquid diet, hydration, and given antiemetics including scopalamine patch, reglan, zofran, ativan and admitted for observation. 01/09/2022 Patient evaluated today resting bed. She is currently denying abdominal pain, no further episodes of nausea vomiting no diarrhea noted. Patient wanted to try a soft diet for lunch and she tolerated well. Has not needed antiemetics today. We will discharge the patient home and will give 2 days of zofran. Patient is instructed to increase oral intake and increased diet as tolerated. Denies chest pain, chest pressure, cough or shortness of breath. Denies nausea vomiting diarrhea, denies abdominal pain. Abdomen is soft and nontender with normoactive bowel sounds. Lungs are clear, S1-S2 auscultated. Focal neurological exam is negative. Patient is hemodynamcially stable. Potassium is improved to 3.8 after supplementation. BUN 8.7, creatinine 0.9, glucose is 104. Neutrophils of normalized 5.62. No white count. Please see medication reconciliation for list of current medication. Thank you for allowing us to participate in the care of this patient. The impression and plan of care has been dictated by Yamila Solorzano, Nurse Practitioner as directed. Dr. Kitty MD I have performed a history and physical examination and medical decision making of this patient, discussed the same with the dictator, and agree with the dictators assessment and plan as written, documented as a scribe. Based on total visit time, I have performed more than 50% of this visit. Patient Condition at Discharge: Stable Plan - Discharge Summary Discharge Rx Participant: No New Discharge Prescriptions: New Ondansetron Odt [Zofran Odt] 4 mg PO Q8HR PRN #6 tab PRN Reason: Nausea Continue Loratadine [Claritin] 10 mg PO DAILY HYDROcodone/APAP 10-325MG [[place] 10-325] 1 tab PO QID Ergocalciferol [Vitamin D2 (DRISDOL)] 50,000 unit PO SA Pantoprazole Sodium [Protonix] 40 mg PO BID Dicyclomine [Bentyl] 20 mg PO TID PRN PRN Reason: IBS FLUoxetine HCL [PROzac] 20 mg PO DAILY Metoclopramide [Reglan] 5 mg PO TID PRN #30 tab PRN Reason: Nausea Discharge Medication List HYDROcodone/APAP 10-325MG [[place] 10-325] 1 tab PO QID 04/03/17 [History] Loratadine [Claritin] 10 mg PO DAILY 04/03/17 [History] Ergocalciferol [Vitamin D2 (DRISDOL)] 50,000 unit PO SA 02/13/20 [History] Dicyclomine [Bentyl] 20 mg PO TID PRN 06/11/20 [History] Pantoprazole Sodium [Protonix] 40 mg PO BID 06/11/20 [History] FLUoxetine HCL [PROzac] 20 mg PO DAILY 09/28/20 [History] Metoclopramide [Reglan] 5 mg PO TID PRN #30 tab 01/06/22 [Rx] Ondansetron Odt [Zofran Odt] 4 mg PO Q8HR PRN #6 tab 01/09/22 [Rx] Follow up Appointment(s)/Referral(s): Digna Alonso MD [Primary Care Provider] - 1-2 days Devika Allison MD [STAFF PHYSICIAN] - 02/24/22 (Patient has an appointment with Dr Cliff Allison made for February of this year. ) Patient Instructions/Handouts: Irritable Bowel Syndrome (DC) Activity/Diet/Wound Care/Special Instructions: Increase diet as tolerated Increase oral fluid intake to prevent dehydration Can alternate reglan and zofran as needed Keep appointment with Dr. Cliff Allison for February Discharge Disposition: HOME SELF-CARE
[2022-01-09 14:38] VITALS: BP 103/68; PULSE 77; RESP 14; TEMP 98.3
== END 2022-01-09 15:26 | disposition home or self-care (01) ==
LOC: EC 08:04 → 6NMEDSUR 12:10
PROVIDERS: ADMIT Internal Medicine; ATTEND Internal Medicine
DX: K58.9 Irritable bowel syndrome, unspecified (principal); F41.1 Generalized anxiety disorder; M79.7 Fibromyalgia; G62.9 Polyneuropathy, unspecified; E87.6 Hypokalemia; R74.01 Elevation of levels of liver transaminase levels; E03.9 Hypothyroidism, unspecified; D64.9 Anemia, unspecified; M51.9 Unspecified thoracic, thoracolumbar and lumbosacral intervertebral disc disorder; F12.90 Cannabis use, unspecified, uncomplicated; E04.2 Nontoxic multinodular goiter; J30.2 Other seasonal allergic rhinitis; Z79.899 Other long term (current) drug therapy; Z88.5 Allergy status to narcotic agent; Z90.710 Acquired absence of both cervix and uterus; Z87.891 Personal history of nicotine dependence; Z82.49 Family history of ischemic heart disease and other diseases of the circulatory system
CPT/HCPCS: 99285; 96376 ×3; 96361; 96374; 96375; 36415; 80053; 80048; 83605; 83690; 83735; 85025 ×2; 84702; G0378 ×2; J2060; J2270 ×3; J1200; J0500; J2765; J2405; J1885

== ENCOUNTER 2022-02-12 04:54 | Emergency (ER) | payer MEDICARE, OTHER ==
[2022-02-12] MEDS ORDERED: METOCLOPRAMIDE 5 MG/ML 2 ML VIAL IVP STA (07:03)
[2022-02-12] MEDS ORDERED: SODIUM CHLORIDE 0.9% 1,000 ML IV STA (07:03)
[2022-02-12] MEDS ORDERED: diphenhydrAMINE 50 MG/ML 1 ML VIAL IVP STA (07:03)
[2022-02-12] MEDS ORDERED: DICYCLOMINE 10 MG/ML 2 ML AMP IM STA (07:07)
--- NOTE | 2022-02-12 07:16 | ED ---
Nausea/Vomiting/Diarrhea HPI - General Chief complaint: Nausea/Vomiting/Diarrhea Stated complaint: vomiting Time Seen by Provider: 02/12/22 06:57 Source: patient Mode of arrival: ambulatory Limitations: no limitations - History of Present Illness Initial comments: Patient is a 41-year-old female presenting with chief complaint of nausea and vomiting. Patient states that she is having a "IBS flareup". Patient has been seen here for the same issue multiple times. Patient states this episode has been going on for the last 3 days. She tried taking Zofran and Reglan on Sunday, otherwise she has not taken any medication at home due to not being able to keep it down. Patient is admitting to some abdominal soreness that she attributes to retching. She denies any chest pain or shortness of breath. She admits to anxiety. Denies diarrhea, constipation, melena emesis, coffee ground emesis, dysuria, hematuria, urgency, frequency, fever, chills. - Related Data Home Medications Medication Instructions Recorded Confirmed HYDROcodone/APAP 10-325MG [[place] 1 tab PO QID 04/03/17 01/08/22 10-325] Loratadine [Claritin] 10 mg PO DAILY 04/03/17 01/08/22 Ergocalciferol [Vitamin D2 50,000 unit PO SA 02/13/20 01/08/22 (DRISDOL)] Dicyclomine [Bentyl] 20 mg PO TID PRN 06/11/20 01/08/22 Pantoprazole Sodium [Protonix] 40 mg PO BID 06/11/20 01/08/22 FLUoxetine HCL [PROzac] 20 mg PO DAILY 09/28/20 01/08/22 Previous Rx's Medication Instructions Recorded Metoclopramide [Reglan] 5 mg PO TID PRN #30 tab 01/06/22 Ondansetron Odt [Zofran Odt] 4 mg PO Q8HR PRN #6 tab 01/09/22 Metoclopramide [Reglan] 10 mg PO ACHS PRN #20 tab 02/12/22 Allergies Allergy/AdvReac Type Severity Reaction Status Date / Time propoxyphene Allergy Rash/Hives Verified 02/12/22 05:04 [From Sissy] Review of Systems ROS Statement: Those systems with pertinent positive or pertinent negative responses have been documented in the HPI. ROS Other: All systems not noted in ROS Statement are negative. Past Medical History Past Medical History: Fibromyalgia, Thyroid Disorder Additional Past Medical History / Comment(s): DDD, bulging discs, neuropathy in legs, thyroid nodules, anemia, environmental allergies, constipation/diarrhea, IBS diagnosed in 2019, chronic gastritis. History of Any Multi-Drug Resistant Organisms: None Reported Past Surgical History: Hysterectomy, Orthopedic Surgery Additional Past Surgical History / Comment(s): Right wrist and forearm surgery, D&C, mass on vocal cords - surgery and biopsy. Past Anesthesia/Blood Transfusion Reactions: Postoperative Nausea & Vomiting (PONV) Additional Past Anesthesia/Blood Transfusion Reaction / Comment(s): Constipation post-op. Past Psychological History: Anxiety Smoking Status: Never smoker Past Alcohol Use History: None Reported Past Drug Use History: Marijuana - Past Family History Mother Family Medical History: No Reported History Father Additional Family Medical History / Comment(s): "Cardiovascular swelling". General Exam Limitations: no limitations General appearance: alert, in no apparent distress Head exam: Present: atraumatic, normocephalic, normal inspection Eye exam: Present: normal appearance, EOMI. Absent: scleral icterus Neck exam: Present: normal inspection Respiratory exam: Present: normal lung sounds bilaterally. Absent: respiratory distress, wheezes, rales, rhonchi, stridor Cardiovascular Exam: Present: normal rhythm, tachycardia, normal heart sounds. Absent: systolic murmur, diastolic murmur, rubs, gallop, clicks GI/Abdominal exam: Present: soft. Absent: distended, tenderness, guarding, rebound, rigid Neurological exam: Present: alert, oriented X3, CN II-XII intact Psychiatric exam: Present: anxious Skin exam: Present: warm, dry, intact, normal color. Absent: rash Course Vital Signs 02/12/22 02/12/22 05:02 14:38 Temperature 97.6 F 98.8 F Pulse Rate 116 H 90 Respiratory 20 16 Rate Blood Pressure 158/95 118/74 O2 Sat by Pulse 98 99 Oximetry Medical Decision Making - Medical Decision Making Patient is a 41-year-old female presenting with chief complaint of nausea and vomiting. Patient states that this feels like one of her typical IBS flareups. Symptoms have been going on for the last 3 days. She has been unable to take her home medications due to her symptoms. On examination normal bowel sounds, mild abdominal tenderness. Lab work shows WBC 21.5, this is likely reactive. Potassium is 3.4, BUN and creatinine are 33 and 1.13 respectively, there is some mild transaminitis. Patient reports improvement after medication given. She passes by mouth challenge. She was given 10 mEq of potassium. Follow-up with PCP in one to 2 days. Report back to ER if any new or worsening symptoms. I discussed return parameters alarm symptoms. I answered all questions. Patient conveyed verbal understanding and agreed to the plan. I discussed this case with my attending Dr. Arcos. - Lab Data Result diagrams: 02/12/22 07:37 02/12/22 07:37 Lab Results 02/12/22 02/12/22 02/12/22 Range/Units 07:37 07:37 07:37 WBC 21.5 H (3.8-10.6) k/uL RBC 5.17 (3.80-5.40) m/uL Hgb 15.8 (11.4-16.0) gm/dL Hct 44.7 (34.0-46.0) % MCV 86.5 (80.0-100.0) fL MCH 30.6 (25.0-35.0) pg MCHC 35.4 (31.0-37.0) g/dL RDW 13.3 (11.5-15.5) % Plt Count 342 (150-450) k/uL MPV 7.7 Neutrophils % 85 % Lymphocytes % 10 % Monocytes % 3 % Eosinophils % 1 % Basophils % 1 % Neutrophils # 18.2 H (1.3-7.7) k/uL Lymphocytes # 2.1 (1.0-4.8) k/uL Monocytes # 0.7 (0-1.0) k/uL Eosinophils # 0.2 (0-0.7) k/uL Basophils # 0.1 (0-0.2) k/uL Sodium 138 (137-145) mmol/L Potassium 3.4 L (3.5-5.1) mmol/L Chloride 97 L (98-107) mmol/L Carbon Dioxide 19 L (22-30) mmol/L Anion Gap 22 mmol/L BUN 33 H (7-17) mg/dL Creatinine 1.13 H (0.52-1.04) mg/dL Est GFR (CKD-EPI)AfAm 69 (>60 ml/min/1.73 sqM) Est GFR (CKD-EPI)NonAf 60 (>60 ml/min/1.73 sqM) Glucose 141 H (74-99) mg/dL Calcium 10.7 H (8.4-10.2) mg/dL Total Bilirubin 1.1 (0.2-1.3) mg/dL AST 35 (14-36) U/L ALT 49 H (4-34) U/L Alkaline Phosphatase 160 H (38-126) U/L Total Protein 10.1 H (6.3-8.2) g/dL Albumin 5.7 H (3.5-5.0) g/dL Amylase 81 (30-110) U/L Lipase 69 (23-300) U/L Urine Color Yellow Urine Appearance Cloudy H (Clear) Urine pH 6.0 (5.0-8.0) Ur Specific [place] 1.029 (1.001-1.035) Urine Protein 3+ H (Negative) Urine Glucose (UA) Trace H (Negative) Urine Ketones 3+ H (Negative) Urine Blood Small H (Negative) Urine Nitrite Negative (Negative) Urine Bilirubin 1+ H (Negative) Urine Urobilinogen <2.0 (<2.0) mg/dL Ur Leukocyte Esterase Negative (Negative) Urine RBC 1 (0-5) /hpf Urine WBC 5 (0-5) /hpf Ur Squamous Epith Cells 3 (0-4) /hpf Amorphous Sediment Few H (None) /hpf Urine Bacteria Rare H (None) /hpf Hyaline Casts 71 H (0-2) /lpf Urine Mucus Many H (None) /hpf Disposition Clinical Impression: Nausea & vomiting, Transaminitis, Hypokalemia Disposition: HOME SELF-CARE Condition: Good Instructions (If sedation given, give patient instructions): Acute Nausea and Vomiting (ED) Additional Instructions: Follow-up with PCP in gastroenterology. Report back to ER with any new or worsening symptoms. Take medication as prescribed. Prescriptions: Metoclopramide [Reglan] 10 mg PO ACHS PRN #20 tab PRN Reason: Nausea Is patient prescribed a controlled substance at d/c from ED?: No Referrals: Digna Alonso MD [Primary Care Provider] - 1-2 days Time of Disposition: 13:09
[2022-02-12 08:05] LABS: Basophils # (A) 0.1 k/uL (0-0.2); Basophils % (A) 1 %; Eosinophils # (A) 0.2 k/uL (0-0.7); Eosinophils % (A) 1 %; HCT 44.7 % (34.0-46.0); HGB 15.8 gm/dL (11.4-16.0); Lymphocytes # (A) 2.1 k/uL (1.0-4.8); Lymphocytes % (A) 10 %; MCH 30.6 pg (25.0-35.0); MCHC 35.4 g/dL (31.0-37.0); MCV 86.5 fL (80.0-100.0); Mean Platelet Volume 7.7; Monocytes # (A) 0.7 k/uL (0-1.0); Monocytes % (A) 3 %; Neutrophils # (A) 18.2 k/uL (1.3-7.7); Neutrophils % (A) 85 %; Platelet Count 342 k/uL (150-450); RBC 5.17 m/uL (3.80-5.40); RDW 13.3 % (11.5-15.5); WBC 21.5 k/uL (3.8-10.6)
[2022-02-12 08:17] LABS: Albumin 5.7 g/dL (3.5-5.0); Calcium 10.7 mg/dL (8.4-10.2); Potassium 3.4 mmol/L (3.5-5.1); Total Bilirubin 1.1 mg/dL (0.2-1.3); Total Protein 10.1 g/dL (6.3-8.2)
--- NOTE | 2022-02-12 08:19 | XR ---
EXAMINATION TYPE: XR KUB DATE OF EXAM: 02/12/2022 8:12 AM INDICATION: Patient age:Female; 41 years old; Reason for study: pain; COMPARISON: 01/06/2022. TECHNIQUE: One radiographic view of the abdomen was obtained. FINDINGS: The bowel gas pattern is nonspecific without dilated loops of small or large bowel. There i s no evidence for organomegaly or pneumoperitoneum. The osseous structures are intact. No abnormal calcifications are present. Fecal material and gas are demonstrated throughout the colon and rectum. IMPRESSION: Nonspecific bowel gas pattern without radiographic evidence for acute process.
[2022-02-12] MEDS ORDERED: PANTOPRAZOLE 40 MG/10 ML VIAL IVP STA (08:32)
[2022-02-12] MEDS ORDERED: SCOPOLAMINE 1 MG/72 HR PATCH TRANSDERM STA (08:33)
[2022-02-12] MEDS ORDERED: PROCHLORPERAZINE INJ 10 MG/2 ML VIAL IVP STA (10:11)
[2022-02-12 10:18] LABS: Amorphous Sediment,Urine Few /hpf; Appearance,Urine Cloudy (Clear); Bacteria,Urine Rare /hpf; Bilirubin,Urine 1+ (Negative); Blood,Urine Small (Negative); Color,Urine Yellow; Glucose,Urine (UA) Trace (Negative); Hyaline Casts,Urine 71 /lpf (0-2); Ketones,Urine 3+ (Negative); Leukocyte Esterase,Urine Negative (Negative); Mucus,Urine Many /hpf; Nitrite,Urine Negative (Negative); Protein,Urine 3+ (Negative); RBC,Urine 1 /hpf (0-5); Specific Gravity,Urine 1.029 (1.001-1.035); Squamous Epithelial Cell,Urine 3 /hpf (0-4); Urobilinogen,Urine <2.0 mg/dL (<2.0); WBC,Urine 5 /hpf (0-5)
[2022-02-12] MEDS ORDERED: ALPRAZolam 0.5 MG TAB PO STA (10:41)
[2022-02-12] MEDS ORDERED: POTASSIUM CHLORIDE ER 10 MEQ TAB.ER.PRT PO STA (13:03)
[2022-02-12 14:44] VITALS: BP 118/74; PULSE 90; RESP 16; TEMP 98.8
== END 2022-02-12 14:53 | disposition home or self-care (01) ==
LOC: EC 04:54
DX: R74.01 Elevation of levels of liver transaminase levels (principal); R11.2 Nausea with vomiting, unspecified; E87.6 Hypokalemia; E07.9 Disorder of thyroid, unspecified; Z79.899 Other long term (current) drug therapy; Z88.5 Allergy status to narcotic agent
CPT/HCPCS: 36415; 80053; 82150; 83690; 85025; 81001; 74018; 96374; 96375; 96361; 96372; 99284; J1200; J0500; J0780; J2765; C9113

== ENCOUNTER → 2022-03-30 | Outpatient (CLI) | payer MEDICARE, OTHER ==
--- NOTE | 2022-03-30 09:47 | XR ---
EXAMINATION TYPE: XR foot limited LT DATE OF EXAM: 03/30/2022 COMPARISON: NONE HISTORY: Pain TECHNIQUE: Frontal and lateral views of the left foot are submitted for evaluation. FINDINGS: There is no evidence for fracture or dislocation. Joints are preserved. Soft tissues are wi thin normal limits. No radiopaque foreign bodies. IMPRESSION: No evidence for acute fracture or dislocation.
== END | disposition home or self-care (01) ==
LOC: RADXRMAIN 09:11
PROVIDERS: ATTEND Internal Medicine
DX: M79.672 Pain in left foot (principal)

== ENCOUNTER 2022-09-18 09:07 | Emergency (ER) | payer MEDICARE, OTHER ==
[2022-09-18] MEDS ORDERED: METOCLOPRAMIDE 5 MG/ML 2 ML VIAL IVP STA (10:24)
[2022-09-18] MEDS ORDERED: SODIUM CHLORIDE 0.9% 1,000 ML IV STA (10:24)
[2022-09-18] MEDS ORDERED: PANTOPRAZOLE 40 MG/10 ML VIAL IVP STA (10:24)
[2022-09-18] MEDS ORDERED: KETOROLAC 15 MG/ML 1 ML VIAL IVP STA (10:27)
--- NOTE | 2022-09-18 10:31 | ED ---
Nausea/Vomiting/Diarrhea HPI - General Chief complaint: Nausea/Vomiting/Diarrhea Stated complaint: vomiting Time Seen by Provider: 09/18/22 09:58 Source: patient, RN notes reviewed, old records reviewed Mode of arrival: ambulatory Limitations: no limitations - History of Present Illness Initial comments: 42-year-old female presents to the emergency room with complaints of abdominal pain with nausea vomiting and diarrhea that started yesterday morning. Multiple episodes of watery vomit with watery brown diarrhea. She states is similar to previous episodes of irritable bowel syndrome. Her last endoscopy was with Dr. Allison in 2020. [address] Allison canceled her last appointment. She has been taking her Bentyl Reglan and Protonix as prescribed for the past year. Denies any fevers. MD complaint: nausea, vomiting, diarrhea -: days(s) (1) Description of Vomiting: watery Description of Diarrhea: water (Brown watery), other Associated Abdominal Pain: Yes Location: diffuse Severity scale (1-10): 6 Quality: constant Consistency: constant Improves with: none Context: other (History of irritable bowel syndrome) - Related Data Home Medications Medication Instructions Recorded Confirmed HYDROcodone/APAP 10-325MG [[place] 1 tab PO QID 04/03/17 09/18/22 10-325] Loratadine [Claritin] 10 mg PO DAILY 04/03/17 09/18/22 Pantoprazole Sodium [Protonix] 40 mg PO BID PRN 06/11/20 09/18/22 FLUoxetine HCL [PROzac] 20 mg PO DAILY 09/28/20 09/18/22 Dicyclomine [Bentyl] 10 mg PO TID 09/18/22 09/18/22 Ergocalciferol (Vitamin D2) 1,250 mcg PO MO 09/18/22 09/18/22 [Drisdol (50,000 Iu)] Metoclopramide [Reglan] 5 mg PO TID PRN 09/18/22 09/18/22 Allergies Allergy/AdvReac Type Severity Reaction Status Date / Time propoxyphene Allergy Rash/Hives Verified 09/18/22 11:04 [From Sissy] Review of Systems ROS Statement: Those systems with pertinent positive or pertinent negative responses have been documented in the HPI. ROS Other: All systems not noted in ROS Statement are negative. Past Medical History Past Medical History: Fibromyalgia, Thyroid Disorder Additional Past Medical History / Comment(s): DDD, bulging discs, neuropathy in legs, thyroid nodules, anemia, environmental allergies, constipation/diarrhea, IBS diagnosed in 2019, chronic gastritis. History of Any Multi-Drug Resistant Organisms: None Reported Past Surgical History: Hysterectomy, Orthopedic Surgery Additional Past Surgical History / Comment(s): Right wrist and forearm surgery, D&C, mass on vocal cords - surgery and biopsy. Past Anesthesia/Blood Transfusion Reactions: Postoperative Nausea & Vomiting (PONV) Additional Past Anesthesia/Blood Transfusion Reaction / Comment(s): Constipation post-op. Past Psychological History: Anxiety Smoking Status: Former smoker, Vaper Past Alcohol Use History: None Reported Past Drug Use History: Marijuana - Past Family History Mother Family Medical History: No Reported History Father Additional Family Medical History / Comment(s): "Cardiovascular swelling". General Exam Limitations: no limitations General appearance: alert, in no apparent distress Head exam: Present: atraumatic Eye exam: Present: normal appearance. Absent: scleral icterus, conjunctival injection, periorbital swelling, periorbital tenderness ENT exam: Present: mucous membranes moist Neck exam: Present: full ROM. Absent: meningismus Respiratory exam: Absent: normal lung sounds bilaterally, respiratory distress, accessory muscle use Cardiovascular Exam: Present: regular rate GI/Abdominal exam: Present: soft, tenderness (diffuse), guarding. Absent: distended, rebound, rigid Extremities exam: Present: normal inspection, normal capillary refill. Absent: pedal edema Neurological exam: Present: alert, oriented X3 Psychiatric exam: Present: normal affect, normal mood Skin exam: Present: warm, dry, normal color. Absent: cyanosis, diaphoretic, petechiae, pallor Course Vital Signs 09/18/22 09/18/22 09/18/22 09:12 11:31 14:24 Temperature 98.4 F 98.4 F 98 F Pulse Rate 94 94 77 Respiratory 22 18 19 Rate Blood Pressure 157/89 131/81 104/76 O2 Sat by Pulse 99 99 99 Oximetry Medical Decision Making - Medical Decision Making Vital signs are stable. Abdomen soft and nontender. Urinalysis shows 2+ ketones. Labs show electrolytes show anion gap with leukocytosis of 22.8. This is likely reactive inflammatory IBS with persistent nausea vomiting prior to arrival. Abdominal CT shows no acute abdominal pelvic process. No significant change compared to prior to exam dated 04/22/2022. Hepatic steatosis She was given IV fluids, Protonix, Reglan, Toradol and Dilaudid with pain relief. She is tolerating oral fluids and states is feeling better. She was offered admission and declined stating that she will return if any new or concerning symptoms. Strict return parameters were discussed and she is agreeable to returning with any new or concerning symptoms. Advised her to follow up with Dr. Rodriguez this week. Case discussed with Dr. Blood this is likely a reactive leukocytosis due to patient's nausea vomiting and diarrhea consistent with her irritable bowel syndrome. Was pt. sent in by a medical professional or institution? @ -no Did you speak to anyone other than the patient for history? @ -no Did you review nursing and triage notes? @ -yes i agree Were old charts reviewed? @ -yes labs Differential Diagnosis? @ -Differential Abdominal Pain Women: Appendicitis, Cholecystitis, diverticulosis, ischemic bowel, pancreatitis, hepatitis, UTI, gastroenteritis, AAA, incarcerated hernia, bowel obstruction, constipation, inflammatory bowel, hepatitis, peptic ulcer disease, splenic infarction, perforated viscus, kidney stone, , this is not meant to be an all-i nclusive list EKG interpreted by me (3pts min.)? @ -[none] X-rays interpreted by me (1pt min.)? @ -[none] CT interpreted by me (1pt min.)? @ -no U/S interpreted by me (1pt. min.)? @ -[none] What testing was considered but not performed? (CT, X-rays, U/S, labs)? Why? @ none What meds were considered but not given? Why? @ -Antibiotics considered if evidence of diverticulitis however CT negative Did you discuss the management of the patient with other professionals? @ -no Did you reconcile home meds? @ -no Was smoking cessation discussed for >3mins.? @ -[none] Was critical care preformed (if so, how long)? @ -no Were there social determinants of health that impacted care today? How? (Homelessness, low income, unemployed, alcoholism, drug addiction, transportation, low edu. Level, literacy, decrease access to med. care, long-term, rehab)? @ -[[facility] de-escalation of care discussed even if they declined? (Discuss DNR or withdrawal of care, Hospice)? @ -none What co-morbidities impacted this encounter? (DM, HTN, Smoking, COPD, CAD, Cancer, CVA, Hep., AIDS, mental health diagnosis, sleep apnea, morbid obesity)? @ -Gastritis, irritable bowel syndrome, fibromyalgia Was patient admitted / discharged? @ -discharged Undiagnosed new problem with uncertain prognosis? @ -[none] Drug Therapy requiring intensive monitoring for toxicity (Heparin, Nitro, Insulin, Cardizem)? @ -[none] Were any procedures done? @ -[none] Diagnosis/symptom? @ -IBS, acute nausea vomiting diarrhea, hepatic steatosis Acute, or Chronic, or Acute on Chronic? @ -Acute on chronic Uncomplicated (without systemic symptoms) or Complicated (systemic symptoms)? @ -complicated Side effects of treatment? @ -[none] Exacerbation, Progression, or Severe Exacerbation] @ -[no] Poses a threat to life or bodily function? @ -[no] - Lab Data Result diagrams: 09/18/22 10:46 09/18/22 10:46 Lab Results 09/18/22 09/18/22 09/18/22 Range/Units 10:46 10:46 12:25 WBC 22.8 H (3.8-10.6) k/uL RBC 4.80 (3.80-5.40) m/uL Hgb 14.5 (11.4-16.0) gm/dL Hct 41.1 (34.0-46.0) % MCV 85.6 (80.0-100.0) fL MCH 30.2 (25.0-35.0) pg MCHC 35.3 (31.0-37.0) g/dL RDW 13.0 (11.5-15.5) % Plt Count 279 (150-450) k/uL MPV 9.7 Neutrophils % 89 % Lymphocytes % 7 % Monocytes % 4 % Eosinophils % 1 % Basophils % 0 % Neutrophils # 20.2 H (1.3-7.7) k/uL Lymphocytes # 1.5 (1.0-4.8) k/uL Monocytes # 0.9 (0-1.0) k/uL Eosinophils # 0.1 (0-0.7) k/uL Basophils # 0.1 (0-0.2) k/uL Sodium 141 (137-145) mmol/L Potassium 4.0 (3.5-5.1) mmol/L Chloride 102 (98-107) mmol/L Carbon Dioxide 20 L (22-30) mmol/L Anion Gap 19 mmol/L BUN 23 H (7-17) mg/dL Creatinine 0.85 (0.52-1.04) mg/dL Est GFR (CKD-EPI)AfAm >90 (>60 ml/min/1.73 sqM) Est GFR (CKD-EPI)NonAf 84 (>60 ml/min/1.73 sqM) Glucose 135 H (74-99) mg/dL Calcium 10.5 H (8.4-10.2) mg/dL Total Bilirubin 0.7 (0.2-1.3) mg/dL AST 32 (14-36) U/L ALT 73 H (4-34) U/L Alkaline Phosphatase 160 H (38-126) U/L Total Protein 9.2 H (6.3-8.2) g/dL Albumin 5.5 H (3.5-5.0) g/dL Amylase 67 (30-110) U/L Lipase 29 (23-300) U/L Urine Color Yellow Urine Appearance Clear (Clear) Urine pH 7.0 (5.0-8.0) Ur Specific [place] >1.050 H (1.001-1.035) Urine Protein 1+ H (Negative) Urine Glucose (UA) Negative (Negative) Urine Ketones 2+ H (Negative) Urine Blood Small H (Negative) Urine Nitrite Negative (Negative) Urine Bilirubin Negative (Negative) Urine Urobilinogen <2.0 (<2.0) mg/dL Ur Leukocyte Esterase Negative (Negative) Urine RBC 2 (0-5) /hpf Urine WBC 1 (0-5) /hpf Ur Squamous Epith Cells 1 (0-4) /hpf Disposition Clinical Impression: Nausea vomiting and diarrhea Disposition: HOME SELF-CARE Condition: Good Instructions (If sedation given, give patient instructions): Acute Nausea and Vomiting (ED), Acute Diarrhea (ED) Additional Instructions: Increase your fluid intake. Continue taking your medications as previously prescribed including Reglan, Bentyl and Protonix. Follow up with your primary care doctor and Dr. Allison this week. Return to the emergency room with any new or concerning symptoms. Is patient prescribed a controlled substance at d/c from ED?: No Referrals: Digna Alonso MD [Primary Care Provider] - 1-2 days Time of Disposition: 13:53
[2022-09-18 10:57] LABS: Basophils # (A) 0.1 k/uL (0-0.2); Basophils % (A) 0 %; Eosinophils # (A) 0.1 k/uL (0-0.7); Eosinophils % (A) 1 %; HCT 41.1 % (34.0-46.0); HGB 14.5 gm/dL (11.4-16.0); Lymphocytes # (A) 1.5 k/uL (1.0-4.8); Lymphocytes % (A) 7 %; MCH 30.2 pg (25.0-35.0); MCHC 35.3 g/dL (31.0-37.0); MCV 85.6 fL (80.0-100.0); Mean Platelet Volume 9.7; Monocytes # (A) 0.9 k/uL (0-1.0); Monocytes % (A) 4 %; Neutrophils # (A) 20.2 k/uL (1.3-7.7); Neutrophils % (A) 89 %; Platelet Count 279 k/uL (150-450); WBC 22.8 k/uL (3.8-10.6)
[2022-09-18 11:24] LABS: ALT 73 U/L (4-34); AST 32 U/L (14-36); African American GFR (CKD) >90 (>60 ml/min/1.73 sqM); Albumin 5.5 g/dL (3.5-5.0); Alkaline Phosphatase 160 U/L (38-126); Amylase 67 U/L (30-110); Anion Gap 19 mmol/L; Blood Urea Nitrogen 23 mg/dL (7-17); Calcium 10.5 mg/dL (8.4-10.2); Carbon Dioxide 20 mmol/L (22-30); Chloride 102 mmol/L (98-107); Glucose 135 mg/dL (74-99); Lipase 29 U/L (23-300); Non-African American GFR(CKD) 84 (>60 ml/min/1.73 sqM); Sodium 141 mmol/L (137-145); Total Bilirubin 0.7 mg/dL (0.2-1.3); Total Protein 9.2 g/dL (6.3-8.2)
--- NOTE | 2022-09-18 11:50 | CT ---
EXAMINATION TYPE: CT abdomen pelvis w con CT DLP: 909 mGycm, Automated exposure control for dose reduction was used. DATE OF EXAM: 09/18/2022 11:30 AM COMPARISON: CT abdomen pelvis most recent from 04/22/2022. CLINICAL INDICATION:Female, 42 years old with history of abd pain; IBS TECHNIQUE: Standard CT of the abdomen and pelvis following the administration of 100 cc of Isovue 3 00 IV contrast material. Coronal and sagittal reformats were performed. FINDINGS: LOWER CHEST: Unremarkable ABDOMEN LIVER: Diffusely hypoattenuating parenchyma. GALLBLADDER AND BILE DUCTS: Unremarkable. PANCREAS: Unremarkable. SPLEEN: Unremarkable. ADRENAL GLANDS: Unremarkable. KIDNEYS AND URETERS: No evidence of hydronephrosis or renal calculus. The kidneys enhance symmetrical ly without suspicious focal lesion. PELVIS BLADDER: Unremarkable REPRODUCTIVE: The uterus is surgically absent. ABDOMEN & PELVIS STOMACH AND BOWEL: Stomach and duodenum are unremarkable. No focal wall thickening or surrounding inf lammatory changes. The appendix is within normal limits. No hyperenhancement of the bowel. No evidenc e of bowel obstruction. PERITONEUM: No evidence of pneumoperitoneum or free fluid. VASCULATURE: No evidence of aortic aneurysm. MUSCULOSKELETAL: No acute osseous abnormalities LYMPH NODES: No gross evidence for lymphadenopathy. SOFT TISSUE/ABDOMINAL WALL: Small fat filled umbilical hernia. IMPRESSION: 1. No acute abdominal/pelvic process. No significant change from prior examination. 2. Hepatic steatosis.
[2022-09-18] MEDS ORDERED: HYDROmorphone 0.5 MG/0.5 ML SYRINGE IVP STA (12:15)
[2022-09-18] MEDS ORDERED: SODIUM CHLORIDE 0.9% 1,000 ML IV ONE (12:37)
[2022-09-18 13:30] LABS: Appearance,Urine Clear (Clear); Bilirubin,Urine Negative (Negative); Blood,Urine Small (Negative); Color,Urine Yellow; Glucose,Urine (UA) Negative (Negative); Ketones,Urine 2+ (Negative); Leukocyte Esterase,Urine Negative (Negative); Nitrite,Urine Negative (Negative); Protein,Urine 1+ (Negative); RBC,Urine 2 /hpf (0-5); Squamous Epithelial Cell,Urine 1 /hpf (0-4); Urobilinogen,Urine <2.0 mg/dL (<2.0); WBC,Urine 1 /hpf (0-5)
[2022-09-18 13:35] LABS: Specific Gravity,Urine >1.050 (1.001-1.035)
[2022-09-18 14:25] VITALS: BP 104/76; PULSE 77; RESP 19; TEMP 98
== END 2022-09-18 14:26 | disposition home or self-care (01) ==
LOC: EC 09:07
DX: R11.2 Nausea with vomiting, unspecified (principal); R19.7 Diarrhea, unspecified; F41.9 Anxiety disorder, unspecified; F12.90 Cannabis use, unspecified, uncomplicated; Z87.891 Personal history of nicotine dependence; Z88.8 Allergy status to other drugs, medicaments and biological substances
CPT/HCPCS: 36415; 80053; 82150; 83690; 85025; 81001; 74177; 99284; 96374; 96375 ×3; 96361 ×4; J2765; J1885; C9113; J1170; Q9967

== ENCOUNTER 2022-09-20 02:33 | Observation (INO) | payer MEDICARE, OTHER ==
[2022-09-20] MEDS ORDERED: HALOPERIDOL LACTATE 5 MG/ML 1 ML VIAL IVP STA (03:02)
[2022-09-20] MEDS ORDERED: SODIUM CHLORIDE 0.9% 1,000 ML IV ONE (03:02)
[2022-09-20] MEDS ORDERED: PANTOPRAZOLE 40 MG/10 ML VIAL IVP STA (03:03)
[2022-09-20 03:30] LABS: Basophils # (A) 0.1 k/uL (0-0.2); Basophils % (A) 0 %; Eosinophils # (A) 0.1 k/uL (0-0.7); Eosinophils % (A) 0 %; HCT 39.3 % (34.0-46.0); HGB 13.6 gm/dL (11.4-16.0); Lymphocytes % (A) 15 %; MCH 29.6 pg (25.0-35.0); MCHC 34.6 g/dL (31.0-37.0); MCV 85.5 fL (80.0-100.0); Mean Platelet Volume 7.5; Monocytes # (A) 0.5 k/uL (0-1.0); Monocytes % (A) 4 %; Neutrophils # (A) 11.1 k/uL (1.3-7.7); Neutrophils % (A) 80 %; Platelet Count 242 k/uL (150-450); RDW 12.6 % (11.5-15.5); WBC 13.9 k/uL (3.8-10.6)
[2022-09-20 03:43] LABS: ALT 68 U/L (4-34); AST 54 U/L (14-36); African American GFR (CKD) >90 (>60 ml/min/1.73 sqM); Albumin 4.8 g/dL (3.5-5.0); Alkaline Phosphatase 118 U/L (38-126); Anion Gap 14 mmol/L; Blood Urea Nitrogen 16 mg/dL (7-17); Calcium 9.6 mg/dL (8.4-10.2); Carbon Dioxide 19 mmol/L (22-30); Chloride 107 mmol/L (98-107); Glucose 128 mg/dL (74-99); Lipase 120 U/L (23-300); Magnesium 2.1 mg/dL (1.6-2.3); Non-African American GFR(CKD) >90 (>60 ml/min/1.73 sqM); Potassium 3.7 mmol/L (3.5-5.1); Sodium 140 mmol/L (137-145); Total Bilirubin 0.9 mg/dL (0.2-1.3); Total Protein 7.8 g/dL (6.3-8.2)
--- NOTE | 2022-09-20 03:43 | ED ---
General Adult HPI - General Chief complaint: Abdominal Pain Stated complaint: IBS Flare-up Time Seen by Provider: 09/20/22 02:42 Source: patient Mode of arrival: ambulatory - History of Present Illness Initial comments: This is a 42-year-old female with a past medical history including IBS presents emergency department for continued abdominal pain as well as nausea and vomiting. The patient stated that she was seen in the emergency department several days ago for the same complaints and stated that she did feel okay when she went home. The patient stated that she started to have continued nausea and vomiting over the last 1 day and has not been able to keep any of her me dications down. The patient stated because of her continued nausea and vomiting in the setting of no oral intake, the patient did present emergency department once again. The patient has not been able to take any further medications at home and stated that she has not gotten any relief. The patient denied any other acute pain or complaints at this time. The patient stated that this nausea and vomiting is typical for her IBS flares that typically lasts approximately 2-5 days. The patient stated that all of these symptoms are similar to her previous episodes. The patient denied any fevers and chills however. - Related Data Home Medications Medication Instructions Recorded Confirmed HYDROcodone/APAP 10-325MG [[place] 1 tab PO QID 04/03/17 09/18/22 10-325] Loratadine [Claritin] 10 mg PO DAILY 04/03/17 09/18/22 Pantoprazole Sodium [Protonix] 40 mg PO BID PRN 06/11/20 09/18/22 FLUoxetine HCL [PROzac] 20 mg PO DAILY 09/28/20 09/18/22 Dicyclomine [Bentyl] 10 mg PO TID 09/18/22 09/18/22 Ergocalciferol (Vitamin D2) 1,250 mcg PO MO 09/18/22 09/18/22 [Drisdol (50,000 Iu)] Metoclopramide [Reglan] 5 mg PO TID PRN 09/18/22 09/18/22 Allergies Allergy/AdvReac Type Severity Reaction Status Date / Time propoxyphene Allergy Rash/Hives Verified 09/20/22 02:41 [From Sissy] Review of Systems ROS Statement: Those systems with pertinent positive or pertinent negative responses have been documented in the HPI. ROS Other: All systems not noted in ROS Statement are negative. Past Medical History Past Medical History: Fibromyalgia, Thyroid Disorder Additional Past Medical History / Comment(s): DDD, bulging discs, neuropathy in legs, thyroid nodules, anemia, environmental allergies, constipation/diarrhea, IBS diagnosed in 2019, chronic gastritis. History of Any Multi-Drug Resistant Organisms: None Reported Past Surgical History: Hysterectomy, Orthopedic Surgery Additional Past Surgical History / Comment(s): Right wrist and forearm surgery, D&C, mass on vocal cords - surgery and biopsy. Past Anesthesia/Blood Transfusion Reactions: Postoperative Nausea & Vomiting (PONV) Additional Past Anesthesia/Blood Transfusion Reaction / Comment(s): Constipation post-op. Past Psychological History: Anxiety Smoking Status: Former smoker, Vaper Past Alcohol Use History: None Reported Past Drug Use History: Marijuana - Past Family History Mother Family Medical History: No Reported History Father Additional Family Medical History / Comment(s): "Cardiovascular swelling". General Exam Limitations: no limitations General appearance: alert, in no apparent distress Head exam: Present: atraumatic, normocephalic, normal inspection Eye exam: Present: normal appearance, PERRL Pupils: Present: normal accommodation ENT exam: Present: normal exam, normal oropharynx, mucous membranes moist Neck exam: Present: normal inspection, full ROM Respiratory exam: Present: normal lung sounds bilaterally Cardiovascular Exam: Present: regular rate, normal rhythm, normal heart sounds GI/Abdominal exam: Present: soft, tenderness (Mild generalized tenderness to palpation in all quadrants) Extremities exam: Present: normal inspection, full ROM Back exam: Present: normal inspection, full ROM Neurological exam: Present: alert, oriented X3, CN II-XII intact Psychiatric exam: Present: normal affect, normal mood Skin exam: Present: warm, dry Course Vital Signs 09/20/22 02:40 Temperature 98 F Pulse Rate 79 Respiratory 19 Rate Blood Pressure 140/99 O2 Sat by Pulse 98 Oximetry Medical Decision Making - Medical Decision Making Was pt. sent in by a medical professional or institution (, PA, STRUCTURAL ENGINEER, urgent care, hospital, or prison...) When possible be specific @ -No Did you speak to anyone other than the patient for history (EMS, parent, family, police, friend...)? What history was obtained from this source @ -No Did you review nursing and triage notes (agree or disagree)? Why? @ -I reviewed and agree with nursing and triage notes Were old charts reviewed (outside hosp., previous admission, EMS record, old EKG, old radiological studies, urgent care reports/EKG's, prison records)? Report findings @ -No old charts were reviewed Differential Diagnosis (chest pain, altered mental status, abdominal pain women, abdominal pain men, vaginal bleeding, weakness, fever, dyspnea, syncope, headache, dizziness, GI bleed, back pain, seizure, CVA, palpatations, mental health)? @ -IBS flare, abdominal pain, NOS EKG interpreted by me (3pts min.). @ -None X-rays interpreted by me (1pt min.). @ -None done CT interpreted by me (1pt min.). @ -None done U/S interpreted by me (1pt. min.). @ -None done What testing was considered but not performed or refused? (CT, X-rays, U/S, labs)? Why? @ -Computed tomography scan was considered however the patient just had a computed tomography scan and was negative 2 days ago. What meds were considered but not given or refused? Why? @ -None Did you discuss the management of the patient with other professionals (professionals i.e. , PA, STRUCTURAL ENGINEER, lab, RT, psych nurse, social welfare research worker, rn sane, teacher, correctional security officer, correctional counselor/case manager)? Give summary @ -Yes, admitting physician Was smoking cessation discussed for >3mins.? @ -No Was critical care preformed (if so, how long)? @ -No Were there social determinants of health that impacted care today? How? (Homelessness, low income, unemployed, alcoholism, drug addiction, transportation, low edu. Level, literacy, decrease access to med. care, long-term, rehab)? @ -No Was there de-escalation of care discussed even if they declined (Discuss DNR or withdrawal of care, Hospice)? DNR status @ -No What co-morbidities impacted this encounter? (DM, HTN, Smoking, COPD, CAD, Cancer, CVA, ARF, Chemo, Hep., AIDS, mental health diagnosis, sleep apnea, morbid obesity)? @ -IBS Was patient admitted / discharged? Hospital course, mention meds given and route, prescriptions, significant lab abnormalities, going to OR and other pertinent info. @ -The patient was seen and evaluated emergency department. Physical exam, the patient continued abdominal pain. Laboratory workup was obtained and was impro stan from 2 days ago. The patient was given medications including Haldol, Reglan and fluids. The patient stated that she had continued abdominal pain and stated that she would prefer to stay in the hospital as her pain is not improved since this is now the second time the last 3 days that she is being seen. Gastroenterology is available for consult and the patient did agree to being placed in observation. The patient's primary care physician was being covered by [facility] and they were accepted for admission. The patient was agreeable to this and was placed observation in stable condition. Undiagnosed new problem with uncertain prognosis? @ -No Drug Therapy requiring intensive monitoring for toxicity (Heparin, Nitro, Insulin, Cardizem)? @ -No Were any procedures done? @ -No Diagnosis/symptom? @ -Intractable abdominal pain Acute, or Chronic, or Acute on Chronic? @ -Acute on chronic Uncomplicated (without systemic symptoms) or Complicated (systemic symptoms)? @ -Complicated Side effects of treatment? @ -No Exacerbation, Progression, or Severe Exacerbation? @ -No Poses a threat to life or bodily function? How? (Chest pain, [place], [place], pneumonia, PE, COPD, DKA, ARF, appy, cholecystitis, CVA, Diverticulitis, Homicidal, Suicidal, threat to staff... and all critical care pts) @ -No - Lab Data Result diagrams: 09/20/22 02:58 09/20/22 02:58 Lab Results 09/20/22 09/20/22 09/20/22 Range/Units 02:58 02:58 02:58 WBC 13.9 H (3.8-10.6) k/uL RBC 4.60 (3.80-5.40) m/uL Hgb 13.6 (11.4-16.0) gm/dL Hct 39.3 (34.0-46.0) % MCV 85.5 (80.0-100.0) fL MCH 29.6 (25.0-35.0) pg MCHC 34.6 (31.0-37.0) g/dL RDW 12.6 (11.5-15.5) % Plt Count 242 (150-450) k/uL MPV 7.5 Neutrophils % 80 % Lymphocytes % 15 % Monocytes % 4 % Eosinophils % 0 % Basophils % 0 % Neutrophils # 11.1 H (1.3-7.7) k/uL Lymphocytes # 2.0 (1.0-4.8) k/uL Monocytes # 0.5 (0-1.0) k/uL Eosinophils # 0.1 (0-0.7) k/uL Basophils # 0.1 (0-0.2) k/uL Sodium 140 (137-145) mmol/L Potassium 3.7 (3.5-5.1) mmol/L Chloride 107 (98-107) mmol/L Carbon Dioxide 19 L (22-30) mmol/L Anion Gap 14 mmol/L BUN 16 (7-17) mg/dL Creatinine 0.79 (0.52-1.04) mg/dL Est GFR (CKD-EPI)AfAm >90 (>60 ml/min/1.73 sqM) Est GFR (CKD-EPI)NonAf >90 (>60 ml/min/1.73 sqM) Glucose 128 H (74-99) mg/dL Calcium 9.6 (8.4-10.2) mg/dL Magnesium 2.1 (1.6-2.3) mg/dL Total Bilirubin 0.9 (0.2-1.3) mg/dL AST 54 H (14-36) U/L ALT 68 H (4-34) U/L Alkaline Phosphatase 118 (38-126) U/L Total Protein 7.8 (6.3-8.2) g/dL Albumin 4.8 (3.5-5.0) g/dL Lipase 120 (23-300) U/L Urine Color Light Yellow Urine Appearance Clear (Clear) Urine pH 7.0 (5.0-8.0) Ur Specific [place] 1.017 (1.001-1.035) Urine Protein Negative (Negative) Urine Glucose (UA) Negative (Negative) Urine Ketones 2+ H (Negative) Urine Blood Negative (Negative) Urine Nitrite Negative (Negative) Urine Bilirubin Negative (Negative) Urine Urobilinogen <2.0 (<2.0) mg/dL Ur Leukocyte Esterase Small H (Negative) Urine RBC 1 (0-5) /hpf Urine WBC 1 (0-5) /hpf Ur Squamous Epith Cells 1 (0-4) /hpf Urine Mucus Occasional H (None) /hpf Disposition Clinical Impression: Intractable abdominal pain Disposition: ADMITTED IP TO THIS [facility] Condition: Stable Is patient prescribed a controlled substance at d/c from ED?: No Referrals: Digna Alonso MD [Primary Care Provider] - 1-2 days Time of Disposition: 04:45 Decision to Admit Reason: Admit from EC Decision Date: 09/20/22 Decision Time: 04:45
[2022-09-20] MEDS ORDERED: METOCLOPRAMIDE 5 MG/ML 2 ML VIAL IVP STA (04:29)
[2022-09-20 04:41] LABS: Appearance,Urine Clear (Clear); Bilirubin,Urine Negative (Negative); Blood,Urine Negative (Negative); Color,Urine Light Yellow; Glucose,Urine (UA) Negative (Negative); Ketones,Urine 2+ (Negative); Leukocyte Esterase,Urine Small (Negative); Mucus,Urine Occasional /hpf; Nitrite,Urine Negative (Negative); Protein,Urine Negative (Negative); RBC,Urine 1 /hpf (0-5); Specific Gravity,Urine 1.017 (1.001-1.035); Squamous Epithelial Cell,Urine 1 /hpf (0-4); Urobilinogen,Urine <2.0 mg/dL (<2.0); WBC,Urine 1 /hpf (0-5)
[2022-09-20] MEDS ORDERED: NALOXONE 0.4 MG/ML 1 ML VIAL IV PRN (04:55)
--- NOTE | 2022-09-20 07:11 | P.HPIM ---
History of Present Illness This is a pleasant 42 years old female with past medical history of fibromyalgia, irritable bowel syndrome. Patient presents because of abdominal pain She came to the emergency room on 09/18 for abdominal pain with nausea vomiting and diarrhea. Patient states that since 09/17 start frequent vomiting and abdominal pain and diarrhea. She had last bowel movement was on 09/17 but she is passing gas. Her abdominal pain is below the umbilicus and across the abdomen that comes and goes mainly with vomiting, rated at 7/10 on admission, currently feels better, colicky, nonradiating. Patient was vomiting constantly over the last 2-3 days, she was not able to eat but she is drinking water, she would vomit right after drinking water. She attributes her symptoms to flareup of irritable bowel syndrome. She denies any chest pain or dyspnea or coughing. No urinary complaints, no dysuria or urgency, no headache or dizziness. No weakness or numbness. Patient denies smoking or alcohol but she uses marijuana. Vitals stable Labs showed mild leukocytosis of 13.9, pulse 22.8 today. After patient BMP is unremarkable. Liver enzymes slightly elevated with AST 54 and ALT 68 over bilirubin is normal. Urine analysis is negative for infection. Lipase is normal CT of the abdomen and pelvis with contrast done 09/18: No acute abdominal/pelvic process. No significant change from prior. Hepatic steatosis MAPS system was not working so it could not be checked for the patient Review of Systems Review of systems CONSTITUTIONAL: No fever, no malaise, no fatigue. HEENT: No recent visual problems or hearing problems. Denied any sore throat. CARDIOVASCULAR: No orthopnea, PND, no palpitations, no syncope. PULMONARY: No shortness of breath, no cough, no hemoptysis. GASTROINTESTINAL: No diarrhea, . Normoactive bowel sounds. NEUROLOGICAL: No headaches, no weakness, no numbness. HEMATOLOGICAL: Denies any bleeding or petechiae. GENITOURINARY: Denies any burning micturition, frequency, or urgency. MUSCULOSKELETAL/RHEUMATOLOGICAL: Denies any joint pain, swelling, or any muscle pain. ENDOCRINE: Denies any polyuria or polydipsia. Past Medical History Past Medical History: Fibromyalgia, Thyroid Disorder Additional Past Medical History / Comment(s): DDD, bulging discs, neuropathy in legs, thyroid nodules, anemia, environmental allergies, constipation/diarrhea, IBS diagnosed in 2019, chronic gastritis. History of Any Multi-Drug Resistant Organisms: None Reported Past Surgical History: Hysterectomy, Orthopedic Surgery Additional Past Surgical History / Comment(s): Right wrist and forearm surgery, D&C, mass on vocal cords - surgery and biopsy. Past Anesthesia/Blood Transfusion Reactions: Postoperative Nausea & Vomiting (PONV) Additional Past Anesthesia/Blood Transfusion Reaction / Comment(s): Constipation post-op. Past Psychological History: Anxiety Smoking Status: Former smoker, Vaper Past Alcohol Use History: None Reported Past Drug Use History: Marijuana - Past Family History Mother Family Medical History: No Reported History Father Additional Family Medical History / Comment(s): "Cardiovascular swelling". Medications and Allergies Home Medications Medication Instructions Recorded Confirmed Type HYDROcodone/APAP 10-325MG [[place] 1 tab PO QID 04/03/17 09/18/22 History 10-325] Loratadine [Claritin] 10 mg PO DAILY 04/03/17 09/18/22 History Pantoprazole Sodium [Protonix] 40 mg PO BID PRN 06/11/20 09/18/22 History FLUoxetine HCL [PROzac] 20 mg PO DAILY 09/28/20 09/18/22 History Dicyclomine [Bentyl] 10 mg PO TID 09/18/22 09/18/22 History Ergocalciferol (Vitamin D2) 1,250 mcg PO MO 09/18/22 09/18/22 History [Drisdol (50,000 Iu)] Metoclopramide [Reglan] 5 mg PO TID PRN 09/18/22 09/18/22 History Allergies Allergy/AdvReac Type Severity Reaction Status Date / Time propoxyphene Allergy Rash/Hives Verified 09/20/22 02:41 [From Martha-Sumit] Physical Exam Vitals: Vital Signs Temp Pulse Resp BP Pulse Ox 09/20/22 05:00 76 17 164/95 97 09/20/22 02:40 98 F 79 19 140/99 98 Intake and Output 09/19/22 09/19/22 09/20/22 14:59 22:59 06:59 Other: Weight 76.204 kg GENERAL: The patient is alert and oriented x3, not in any acute distress. Well developed, well nourished. HEENT: Pupils are round and equally reacting to light. EOMI. No scleral icterus. No conjunctival pallor. Normocephalic, atraumatic. No pharyngeal erythema. No thyromegaly. CARDIOVASCULAR: S1 and S2 present. No murmurs, rubs, or gallops. PULMONARY: Chest is clear to auscultation, no wheezing or crackles. ABDOMEN: Soft, nontender, nondistended, normoactive bowel sounds. No palpable organomegaly. MUSCULOSKELETAL: No joint swelling or deformity. EXTREMITIES: No cyanosis, clubbing, or pedal edema. NEUROLOGICAL: Gross neurological examination did not reveal any focal deficits. SKIN: No rashes. no petechiae. Results CBC & Chem 7: 09/20/22 02:58 09/20/22 02:58 Labs: Abnormal Lab Results - Last 24 Hours (Table) 09/20/22 09/20/22 09/20/22 Range/Units 02:58 02:58 02:58 WBC 13.9 H (3.8-10.6) k/uL Neutrophils # 11.1 H (1.3-7.7) k/uL Carbon Dioxide 19 L (22-30) mmol/L Glucose 128 H (74-99) mg/dL AST 54 H (14-36) U/L ALT 68 H (4-34) U/L Urine Ketones 2+ H (Negative) Ur Leukocyte Esterase Small H (Negative) Urine Mucus Occasional H (None) /hpf Assessment and Plan Assessment: In the emergency room patient received Protonix, metoclopramide, hold off and normal saline Abdominal pain most likely related to her history of irritable bowel syndrome, differential diagnosis included acute gastroenteritis, versus cannabis cyclic vomiting Substance abuse with tetrahydrocannabinol/marijuana Fibromyalgia Mild transaminitis associated with hepatic steatosis Mild leukocytosis, could be reactive secondary to above Plan: Continue with Bentyl Continue with gentle hydration Bowel rest Pain management GI consult Patient is counseled to quit smoking marijuana, risks and benefits explained Labs and medication were reviewed.. Continue same treatment. Continue with symptomatic treatment. Resume home medication. Monitor labs and vitals. DVT and GI prophylaxis. Further recommendations as per clinical course of the patient DVT prophylaxis: Subcutaneous heparin GI Prophylaxis: Ppi Prognosis is guarded
[2022-09-20] MEDS ORDERED: ONDANSETRON 4 MG/2 ML VIAL IVP PRN (07:13)
[2022-09-20 07:17] LABS: HCT 34.8 % (34.0-46.0); HGB 12.3 gm/dL (11.4-16.0); MCH 30.7 pg (25.0-35.0); MCHC 35.3 g/dL (31.0-37.0); MCV 87.1 fL (80.0-100.0); Mean Platelet Volume 7.6; Platelet Count 221 k/uL (150-450); RDW 12.6 % (11.5-15.5); WBC 12.6 k/uL (3.8-10.6)
[2022-09-20 07:43] LABS: HCG,Qualitative Serum Not Detected
[2022-09-20] MEDS ORDERED: DICYCLOMINE 10 MG CAP PO PRN (08:10)
[2022-09-20] MEDS: PANTOPRAZOLE 40 MG/10 ML VIAL IVP SCH (08:21)
[2022-09-20] MEDS: HEPARIN SODIUM,PORCINE/PF 5,000 UNIT/0.5 ML SYRINGE SQ SCH ×2 (11:04→20:01)
[2022-09-20] MEDS: DEXTROSE 5%-0.9% NACL 1,000 ML IV SCH ×2 (11:04→20:00)
[2022-09-20] MEDS: ONDANSETRON 4 MG/2 ML VIAL IVP SCH ×2 (12:25→17:28)
--- NOTE | 2022-09-20 12:41 | P.CONS ---
History of Present Illness - Reason for Consult Consult date: 09/20/22 Intractable abdominal pain Requesting physician: Farooq Guerrero - Chief Complaint Abdominal pain, nausea and vomiting - History of Present Illness This is a 42-year-old female with a history of irritable bowel syndrome diagnosed in 2019, fibromyalgia, chronic back pain, and thyroid disorder. She follows with Dr. Allison in the office. She maintains on Bentyl 10 mg 3 times a day, Zofran as needed, and Protonix daily. She has been in and out of the emergency room for last 3 days duration with complaints of nausea vomiting and abdominal pain. Yesterday she returned and the decided to admit the patient. She states that she is unable to keep any food or water down. Has diffuse abdominal pain. States last week she had some diarrhea this week she is back to regular bowel movements, nonbloody. Past EGD colonoscopy was done by Dr. Rousseau on 02/17/2020. EGD revealed mild gastritis, colonoscopy revealed mild ileitis and small internal hemorrhoids. She states she received a liter of fluids in the ER she is feeling slightly better. She did try taking her dicy clomine and did vomit it back up. She did have a CT of the abdomen and pelvis on her ER visit on 09/18/2022 that showed no acute abdominal/pelvic process. No significant change from prior examination. Hepatic steatosis. She has had prior admissions similar, symptoms usually improve within 1-3 days. Labs WBC 12.6 hemoglobin 12.3 hematocrit 34 platelet count 221,000 sodium 140 potassium 3.7 BUN 16 creatinine 0.7 total bilirubin 0.9 AST 54 ALT 68 alkaline phosphatase 118 Review of Systems REVIEW OF SYSTEMS: CARDIOPULMONARY: No chest pain or shortness of breath. Gastrointestinal: Diffuse abdominal pain. With nausea and vomiting, nonbilious nonbloody. No rectal bleeding, or melena. GENITOURINARY: No dysuria or hematuria. MUSCULOSKELETAL: Reports normal range of motion., Joint pain. SKIN: No rashes. No jaundice. ENDOCRINE: No chills, fevers. No excessive weight gain or loss. No polydipsia or polyuria. PSYCHIATRIC: Unremarkable. NEUROLOGY: No change in mental status. Denies dizziness, headache. ENT: Vision unremarkable. CONSTITUTIONAL: No recent weight loss. No fever, chills, night sweats. Past Medical History Past Medical History: Fibromyalgia, Thyroid Disorder Additional Past Medical History / Comment(s): DDD, bulging discs, neuropathy in legs, thyroid nodules, anemia, environmental allergies, constipation/diarrhea, IBS diagnosed in 2019, chronic gastritis. History of Any Multi-Drug Resistant Organisms: None Reported Past Surgical History: Hysterectomy, Orthopedic Surgery Additional Past Surgical History / Comment(s): Right wrist and forearm surgery, D&C, mass on vocal cords - surgery and biopsy. Past Anesthesia/Blood Transfusion Reactions: Postoperative Nausea & Vomiting (PONV) Additional Past Anesthesia/Blood Transfusion Reaction / Comm: Constipation post- op. Past Psychological History: Anxiety Smoking Status: Former smoker, Vaper Past Alcohol Use History: None Reported Past Drug Use History: Marijuana - Past Family History Mother Family Medical History: No Reported History Father Additional Family Medical History / Comment(s): "Cardiovascular swelling". Medications and Allergies Home Medications Medication Instructions Recorded Confirmed Type HYDROcodone/APAP 10-325MG [[place] 1 tab PO QID 04/03/17 09/20/22 History 10-325] Loratadine [Claritin] 10 mg PO DAILY 04/03/17 09/20/22 History Pantoprazole Sodium [Protonix] 40 mg PO BID PRN 06/11/20 09/20/22 History FLUoxetine HCL [PROzac] 20 mg PO DAILY 09/28/20 09/20/22 History Dicyclomine [Bentyl] 10 mg PO TID 09/18/22 09/20/22 History Ergocalciferol (Vitamin D2) 1,250 mcg PO MO 09/18/22 09/20/22 History [Drisdol (50,000 Iu)] Metoclopramide [Reglan] 5 mg PO TID PRN 09/18/22 09/20/22 History Allergies Allergy/AdvReac Type Severity Reaction Status Date / Time propoxyphene Allergy Rash/Hives Verified 09/20/22 07:21 [From Sissy] Physical Exam Vitals: Vital Signs Temp Pulse Resp BP Pulse Ox 09/20/22 10:00 98.9 F 69 18 160/80 09/20/22 05:00 76 17 164/95 97 09/20/22 02:40 98 F 79 19 140/99 98 Intake and Output 09/19/22 09/20/22 09/20/22 22:59 06:59 14:59 Other: Weight 76.204 kg General appearance: The patient is alert, oriented, appears in no acute distress. HET: Head is normocephalic and atraumatic. Conjunctiva pink. Sclera anicteric. Neck: Supple without lymphadenopathy. Trachea midline. Heart: S1 S2. Regular rate and rhythm. Lungs: Clear to auscultation. Abdomen: Soft, nontender, nondistended with bowel sounds. No guarding or rig idity. Skin: No rashes. No jaundice. Extremities: Normal skin color and turgor. No pedal edema. Neurological: No focal deficits. Alert and oriented x3. Results CBC & Chem 7: 09/20/22 06:37 09/20/22 02:58 Labs: Abnormal Lab Results - Last 24 Hours (Table) 09/20/22 09/20/22 09/20/22 Range/Units 02:58 02:58 02:58 WBC 13.9 H (3.8-10.6) k/uL Neutrophils # 11.1 H (1.3-7.7) k/uL Carbon Dioxide 19 L (22-30) mmol/L Glucose 128 H (74-99) mg/dL AST 54 H (14-36) U/L ALT 68 H (4-34) U/L Urine Ketones 2+ H (Negative) Ur Leukocyte Esterase Small H (Negative) Urine Mucus Occasional H (None) /hpf 09/20/22 Range/Units 06:37 WBC 12.6 H (3.8-10.6) k/uL Neutrophils # (1.3-7.7) k/uL Carbon Dioxide (22-30) mmol/L Glucose (74-99) mg/dL AST (14-36) U/L ALT (4-34) U/L Urine Ketones (Negative) Ur Leukocyte Esterase (Negative) Urine Mucus (None) /hpf Assessment and Plan (1) Intractable vomiting with nausea Narrative/Plan: 42-year-old female with a history of IBS who presented with intractable nausea vomiting and abdominal pain. Patient has had similar episodes in the past requiring admission to the hospital usually 1-3 days. She has nonbloody non bilious emesis, non-bloody bowel movements. She states she had associated diarrhea last week however bowel movements have normalized since then. Abdominal pain improving, and is diffuse. CT of abdomen and pelvis was done on previous ER visit 2 days ago showing no acute process. Symptoms likely related to underlying IBS however cannot rule out possible gastroenteritis. Agree with IV fluids, antiemetics and continue with Bentyl. No plans on endoscopic evaluation. Continue with symptomatic and supportive care. Current Visit: No Status: Acute Code(s): R11.2 - NAUSEA WITH VOMITING, UNSPECIFIED SNOMED Code(s): 445800992 (2) Abdominal pain Current Visit: No Status: Acute Code(s): R10.9 - UNSPECIFIED ABDOMINAL PAIN SNOMED Code(s): 05521730 (3) Fibromyalgia Current Visit: Yes Status: Acute Code(s): M79.7 - FIBROMYALGIA SNOMED Code(s): 814170541 (4) Chronic back pain Current Visit: Yes Status: Acute Code(s): M54.9 - DORSALGIA, UNSPECIFIED; G89.29 - OTHER CHRONIC PAIN SNOMED Code(s): 747398872 Plan: 1. Continue symptomatic and supportive care 2. Anti-emetics ordered [id number] 3. Bentyl 10 mg 3 times a day 4. Continue IV fluids 5. No plans on endoscopic evaluation 6. Clear liquid diet, advance as tolerated Thank you for this consultation, we will continue to follow. Dr. Hermelinda Allison I agree with the dictator's note, documented as a scribe by Nohemi Newberry.
[2022-09-20] MEDS: DICYCLOMINE 10 MG CAP PO SCH ×2 (15:48→20:01)
[2022-09-20] MEDS ORDERED: MELATONIN 5 MG TABLET PO SCH (21:30)
[2022-09-21] MEDS: ONDANSETRON 4 MG/2 ML VIAL IVP SCH ×3 (00:41→11:26)
[2022-09-21] MEDS: HEPARIN SODIUM,PORCINE/PF 5,000 UNIT/0.5 ML SYRINGE SQ SCH (07:40)
[2022-09-21] MEDS: DICYCLOMINE 10 MG CAP PO SCH (07:40)
[2022-09-21] MEDS: PANTOPRAZOLE 40 MG/10 ML VIAL IVP SCH (07:40)
[2022-09-21] MEDS: DEXTROSE 5%-0.9% NACL 1,000 ML IV SCH (07:51)
[2022-09-21 08:58] VITALS: RESP 16
[2022-09-21] MEDS ORDERED: LORATADINE 10 MG TAB PO SCH (09:00)
[2022-09-21] MEDS ORDERED: FLUoxetine HCL 20 MG CAP PO SCH (09:00)
--- NOTE | 2022-09-21 09:12 | P.PN ---
Subjective Progress Note Date: 09/21/22 Principal diagnosis: Intractable nausea and vomiting, abdominal pain This is a 42-year-old female with a history of irritable bowel syndrome diagnosed in 2019, fibromyalgia, chronic back pain, and thyroid disorder. She follows with Dr. Allison in the office. She maintains on Bentyl 10 mg 3 times a day, Zofran as needed, and Protonix daily. She has been in and out of the [facility] ency room for last 3 days duration with complaints of nausea vomiting and abdominal pain. Yesterday she returned and the decided to admit the patient. She states that she is unable to keep any food or water down. Has diffuse abdominal pain. States last week she had some diarrhea this week she is back to regular bowel movements, nonbloody. Past EGD colonoscopy was done by Dr. Rousseau on 02/17/2020. EGD revealed mild gastritis, colonoscopy revealed mild ileitis and small internal hemorrhoids. She states she received a liter of fluids in the ER she is feeling slightly better. She did try taking her dicyclomine and did vomit it back up. She did have a CT of the abdomen and pelvis on her ER visit on 09/18/2022 that showed no acute abdominal/pelvic process. No significant change from prior examination. Hepatic steatosis. She has had prior admissions similar, symptoms usually improve within 1-3 days. 09/21/2022: Patient seen and examined today as follow-up. Patient was admitted with IBS flare with symptoms of nausea vomiting and abdominal pain. This morning she sits up in bed. She looks well. She states abdominal pain improved, she is tolerating a clear liquid diet with no nausea or vomiting. Patient denies any diarrhea, has not had a bowel movement in a couple days, but is passing flatus. She's been afebrile. Patient had some mild elevation in her LFTs with underlying history of hepatic steatosis. Objective - Vital Signs Vital signs: Vital Signs Temp 98.4 F 09/21/22 08:02 Pulse 66 09/21/22 08:02 Resp 16 09/21/22 08:02 BP 113/71 09/21/22 08:02 Pulse Ox 97 09/21/22 08:02 FiO2 Intake & Output 09/20/22 09/21/22 09/21/22 18:59 06:59 18:59 Intake Total 240 Balance 240 Weight 76.204 kg Intake: Oral 240 Other: # Voids 1 1 - Exam General appearance: The patient is alert, oriented, appears in no acute distress. HET: Head is normocephalic and atraumatic. Conjunctiva pink. Sclera anicteric. Neck: Supple without lymphadenopathy. Abdomen: Soft, nontender, nondistended with bowel sounds. No guarding or rigidity. Extremities: Normal skin color and turgor. No pedal edema Skin: No rashes, no jaundice Neurological: No focal deficits. Alert and oriented. - Labs CBC & Chem 7: 09/21/22 05:41 09/21/22 05:41 Assessment and Plan (1) Intractable vomiting with nausea Narrative/Plan: 42-year-old female with a history of IBS who presented with intractable nausea vomiting and abdominal pain. Patient has had similar episodes in the past requiring admission to the hospital usually 1-3 days. She has nonbloody nonbilious emesis, non-bloody bowel movements. She states she had associated diarrhea last week however bowel movements have normalized since then. Abdominal pain improving, and is diffuse. CT of abdomen and pelvis was done on previous ER visit 2 days ago showing no acute process. Symptoms likely related to underlying IBS however cannot rule out possible gastroenteritis. Agree with IV fluids, antiemetics and continue with Bentyl. No plans on endoscopic evaluation. Continue with symptomatic and supportive care. Current Visit: No Status: Acute Code(s): R11.2 - NAUSEA WITH VOMITING, UNSPECIFIED SNOMED Code(s): 738782068 (2) Abdominal pain Current Visit: No Status: Acute Code(s): R10.9 - UNSPECIFIED ABDOMINAL PAIN SNOMED Code(s): 76610111 (3) Fibromyalgia Current Visit: Yes Status: Acute Code(s): M79.7 - FIBROMYALGIA SNOMED Code(s): 452740648 (4) Chronic back pain Current Visit: Yes Status: Acute Code(s): M54.9 - DORSALGIA, UNSPECIFIED; G89.29 - OTHER CHRONIC PAIN SNOMED Code(s): 332711274 (5) Irritable bowel syndrome Current Visit: Yes Status: Acute Code(s): K58.9 - IRRITABLE BOWEL SYNDROME WITHOUT DIARRHEA SNOMED Code(s): 01650498 (6) Hepatic steatosis Narrative/Plan: Mild increase in LFTs from yesterday AST 54 to 261 ALT 62 to 296, total bilirubin 0.8, alkaline phosphatase 94. Patient can follow-up with [facility] Current Visit: Yes Status: Acute Code(s): K76.0 - FATTY (CHANGE OF) LIVER, NOT ELSEWHERE CLASSIFIED SNOMED Code(s): 842453624 Plan: 1. Continue symptomatic and supportive care 2. Increase to low-fat diet 3. Encourage ambulation 4. Continue antiemetics 5. If patient is able to tolerate her lunch without any nausea or vomiting or abdominal pain she is cleared from gastroenterology for discharge 6. Follow-up in 1-2 weeks. Thank you for this consultation, we'll continue to follow. Dr. Hermelinda Allison I agree with the dictator's note, documented as a scribe by Nohemi Newberry.
[2022-09-21 09:39] LABS: Basophils # (A) 0.04 X 10*3/uL (0.00-0.10); Basophils % (A) 0.5 %; Eosinophils # (A) 0 X 10*3/uL (0.04-0.35); Eosinophils % (A) 0 %; HCT 36.8 % (37.2-46.3); HGB 12.2 g/dL (12.0-15.0); Immature Grans, Automated 0.4 %; Lymphocytes % (A) 43.4 %; MCH 29.9 pg (27.0-32.0); MCHC 33.2 g/dL (32.0-37.0); MCV 90.2 fL (80.0-97.0); Mean Platelet Volume 11.1 fL (9.5-12.2); Monocytes # (A) 0.52 X 10*3/uL (0.20-1.00); Monocytes % (A) 6.8 %; NRBC Per 100 WBC 0 /100 WBCS (0.0-0.0); Neutrophils # (A) 3.72 X 10*3/uL (1.80-7.70); Neutrophils % (A) 48.9 %; Platelet Count 210 X 10*3/uL (140-440); RBC 4.08 X 10*6/uL (4.10-5.20); RDW 12.6 % (11.5-14.5); WBC 7.61 X 10*3/uL (4.50-10.00)
[2022-09-21 10:00] LABS: African American GFR (CKD) 96.9 (60.0-200.0); Albumin 4.2 g/dL (3.8-4.9); Albumin/Globulin Ratio 2.02 (1.60-3.17); Anion Gap 10.3 mmol/L (10.00-18.00); BUN/Creat Ratio 10.86 Ratio (12.00-20.00); Bilirubin, Conjugated 0.35 mg/dL (0.20-0.40); Bilirubin,Unconjugated 0.42 mg/dL (0.20-1.00); Blood Urea Nitrogen 9.2 mg/dL (9.0-27.0); Carbon Dioxide 23.6 mmol/L (20.0-27.5); Globulin 2.1 g/dL (1.6-3.3); Magnesium 2.3 mg/dL (1.5-2.4); Non-African American GFR(CKD) 83.6 (60.0-200.0); Potassium 3.6 mmol/L (3.5-5.5); Total Bilirubin 0.8 mg/dL (0.30-1.20); Total Protein 6.3 g/dL (6.2-8.2)
[2022-09-21 14:33] VITALS: BP 117/71; PULSE 67; TEMP 98.3
--- NOTE | 2022-09-21 21:51 | P.DS ---
Providers Date of admission: 09/20/22 04:55 Attending physician: Alejandro Smith MD Consults: 09/20/22 04:55 Consult Physician Routine Consulting Provider: Devika Allison Consult Reason/Comments: Intractable abdominal pain Do you want consulting provider notified?: Yes, Notify in am Primary care physician: Gavin Sawyer [facility] Course: Diagnoses Abdominal pain most likely related to her history of irritable bowel syndrome, differential diagnosis included acute gastroenteritis, versus cannabis cyclic vomiting. Completely resolved Substance abuse with tetrahydrocannabinol/marijuana Fibromyalgia Mild transaminitis associated with hepatic steatosis, follow-up outpatient Mild leukocytosis, could be reactive secondary to above Hospital course: This is a pleasant 42 years old female with past medical history of fibromyalgia, irritable bowel syndrome. Patient presents because of abdominal pain and free tendon and diarrhea. Patient evaluated by GI service. She was treated symptomatically including Bentyl. Patient showed interval improvement and today her abdominal pain is completely resolved, she tolerates diet, no more diarrhea and vomiting. Patient was a to go home today. Patient was cleared for discharge by GI service. Her liver enzymes went up With AST 54 went up to 261 and ALT 68 went up to 96. Bilirubin is normal. GI service where. And they recommended outpatient follow-up as an outpatient, and I'll the patient about her problem of trending liver enzymes, she is asymptomatic and recommended that she follow up with her PCP Dr. Bradley and GI Dr. Allison in one week to check her liver enzymes and she is agreeable. Other than that she was cleared for discharge by GI service Patient denies any other new symptoms. Problems and management plan were discussed with the patient and he verbalized understanding and acceptance Patient was found stable and can be discharged home in guarded prognosis however he needs follow-up as an outpatient. Patient was instructed to follow up with PCP within one week and patient agrees Physical exam Gen: patient is a AAOx3, no distress CVS: S1-S2, RRR, no murmur Lungs: B/L CTA, no wheezing Abdomen: soft, no distention, no tenderness, positive bowel sounds Extremity: no leg edema or induration Time spent more than 35 minutes Patient Condition at Discharge: Stable Plan - Discharge Summary New Discharge Prescriptions: Continue Loratadine [Claritin] 10 mg PO DAILY HYDROcodone/APAP 10-325MG [[place] 10-325] 1 tab PO QID Pantoprazole Sodium [Protonix] 40 mg PO BID PRN PRN Reason: Gi Upset FLUoxetine HCL [PROzac] 20 mg PO DAILY Metoclopramide [Reglan] 5 mg PO TID PRN PRN Reason: Nausea And Vomiting Ergocalciferol (Vitamin D2) [Drisdol (50,000 Iu)] 1,250 mcg PO MO Dicyclomine [Bentyl] 10 mg PO TID Discharge Medication List HYDROcodone/APAP 10-325MG [[place] 10-325] 1 tab PO QID 04/03/17 [History] Loratadine [Claritin] 10 mg PO DAILY 04/03/17 [History] Pantoprazole Sodium [Protonix] 40 mg PO BID PRN 06/11/20 [History] FLUoxetine HCL [PROzac] 20 mg PO DAILY 09/28/20 [History] Dicyclomine [Bentyl] 10 mg PO TID 09/18/22 [History] Ergocalciferol (Vitamin D2) [Drisdol (50,000 Iu)] 1,250 mcg PO MO 09/18/22 [History] Metoclopramide [Reglan] 5 mg PO TID PRN 09/18/22 [History] Follow up Appointment(s)/Referral(s): Digna Alonso MD [Primary Care Provider] - 1-2 days Devika Allison MD [STAFF PHYSICIAN] - 1 Week (left voicemail for office to call patient for follow up appointment ) Patient Instructions/Handouts: Irritable Bowel Syndrome (DC) Activity/Diet/Wound Care/Special Instructions: low fat diet activity is restricted till you see your doctor we recommend to check your liver enzymes and tests with your
[2022-09-25] MEDS ORDERED: ERGOCALCIFEROL 1,250 MCG (50,000 IU) CAPSULE PO SCH (09:00)
== END 2022-09-21 16:17 ==
LOC: EC 02:33 → 6NMEDSUR 04:55
PROVIDERS: ADMIT Internal Medicine; ATTEND Internal Medicine
DX: R10.9 Unspecified abdominal pain (principal); K58.9 Irritable bowel syndrome, unspecified; M79.7 Fibromyalgia; D64.9 Anemia, unspecified; K29.50 Unspecified chronic gastritis without bleeding; F41.9 Anxiety disorder, unspecified; E04.2 Nontoxic multinodular goiter; M54.9 Dorsalgia, unspecified; G89.29 Other chronic pain; G62.9 Polyneuropathy, unspecified; F17.290 Nicotine dependence, other tobacco product, uncomplicated; K76.0 Fatty (change of) liver, not elsewhere classified; F12.10 Cannabis abuse, uncomplicated; Z79.899 Other long term (current) drug therapy; Z88.8 Allergy status to other drugs, medicaments and biological substances; Z90.710 Acquired absence of both cervix and uterus; Z32.02 Encounter for pregnancy test, result negative
CPT/HCPCS: 96376 ×3; 96361 ×2; 96372 ×2; 96374; 96375; 99284; 36415; 80053; 80048; 80076; 84443; 83690; 83735 ×2; 85025 ×2; 85027; 81001; 84703; 83036; 84145; G0378 ×2; J1630; J2765; J2405 ×2; C9113 ×2; J1644 ×2

== ENCOUNTER 2022-11-23 10:29 | Inpatient (IN) | payer MEDICARE, OTHER ==
[2022-11-23] MEDS ORDERED: DICYCLOMINE 10 MG CAP PO STA (10:51)
[2022-11-23] MEDS ORDERED: SODIUM CHLORIDE 0.9% 1,000 ML IV ONE (10:51)
[2022-11-23] MEDS ORDERED: ONDANSETRON 4 MG/2 ML VIAL IVP STA (10:52)
[2022-11-23] MEDS ORDERED: PANTOPRAZOLE 40 MG/10 ML VIAL IVP STA (10:52)
[2022-11-23] MEDS ORDERED: METOCLOPRAMIDE 5 MG/ML 2 ML VIAL IVP STA (10:52)
--- NOTE | 2022-11-23 11:36 | ED ---
General Adult HPI - General Chief complaint: Nausea/Vomiting/Diarrhea Stated complaint: Nausea, vomiting Time Seen by Provider: 11/23/22 10:34 Source: patient, EMS, RN notes reviewed Mode of arrival: EMS Limitations: no limitations - History of Present Illness Initial comments: 42-year-old female with a past medical history of IBS reports presents to the emergency department with a chief complaint of nausea, vomiting 2 days. She believes that this is an IBS flareup. She denies any known fevers, chills, headache, cough, congestion, chest pain, palpitations, abdominal pain. She denies any recent alcohol use. She denies recent sick contacts.. - Related Data Home Medications Medication Instructions Recorded Confirmed HYDROcodone/APAP 10-325MG [[place] 1 tab PO QID 04/03/17 11/23/22 10-325] Loratadine [Claritin] 10 mg PO DAILY PRN 04/03/17 11/23/22 Pantoprazole Sodium [Protonix] 40 mg PO BID 06/11/20 11/23/22 Dicyclomine [Bentyl] 10 mg PO QID PRN 09/18/22 11/23/22 Ergocalciferol (Vitamin D2) 1,250 mcg PO Q7DAYS 09/18/22 11/23/22 [Drisdol (50,000 Iu)] Metoclopramide [Reglan] 5 mg PO AC-TID PRN 09/18/22 11/23/22 FLUoxetine HCL [PROzac] 10 mg PO DAILY 11/23/22 11/23/22 Allergies Allergy/AdvReac Type Severity Reaction Status Date / Time propoxyphene Allergy Rash/Hives Verified 11/23/22 14:41 [From Sissy] Review of Systems ROS Statement: Those systems with pertinent positive or pertinent negative responses have been documented in the HPI. ROS Other: All systems not noted in ROS Statement are negative. Past Medical History Past Medical History: Fibromyalgia, Thyroid Disorder Additional Past Medical History / Comment(s): DDD, bulging discs, neuropathy in legs, thyroid nodules, anemia, environmental allergies, constipation/diarrhea, IBS diagnosed in 2019, chronic gastritis. History of Any Multi-Drug Resistant Organisms: None Reported Past Surgical History: Hysterectomy, Orthopedic Surgery Additional Past Surgical History / Comment(s): Right wrist and forearm surgery, D&C, mass on vocal cords - surgery and biopsy. Past Anesthesia/Blood Transfusion Reactions: Postoperative Nausea & Vomiting (PONV) Additional Past Anesthesia/Blood Transfusion Reaction / Comment(s): Constipation post-op. Past Psychological History: Anxiety Smoking Status: Former smoker, Vaper Past Alcohol Use History: None Reported Past Drug Use History: Marijuana - Past Family History Mother Family Medical History: No Reported History Father Additional Family Medical History / Comment(s): "Cardiovascular swelling". General Exam Limitations: no limitations General appearance: alert, in no apparent distress Head exam: Present: atraumatic, normocephalic, normal inspection Eye exam: Present: normal appearance, PERRL, EOMI. Absent: scleral icterus, conjunctival injection, periorbital swelling ENT exam: Present: normal exam, mucous membranes moist Neck exam: Present: normal inspection. Absent: tenderness, meningismus, lymphadenopathy Respiratory exam: Present: normal lung sounds bilaterally. Absent: respiratory distress, wheezes, rales, rhonchi, stridor Cardiovascular Exam: Present: regular rate, normal rhythm, normal heart sounds. Absent: systolic murmur, diastolic murmur, rubs, gallop, clicks GI/Abdominal exam: Present: soft, normal bowel sounds. Absent: distended, tenderness, guarding, rebound, rigid Extremities exam: Present: normal inspection, full ROM, normal capillary refill. Absent: tenderness, pedal edema, joint swelling, calf tenderness Back exam: Present: normal inspection Neurological exam: Present: alert, oriented X3, CN II-XII intact Psychiatric exam: Present: normal affect, normal mood Skin exam: Present: warm, dry, intact, normal color. Absent: rash Course Vital Signs 11/23/22 11/23/22 11/23/22 10:30 13:00 14:55 Temperature 98.7 F Pulse Rate 86 72 80 Respiratory 18 18 Rate Blood Pressure 159/94 137/83 O2 Sat by Pulse 100 95 Oximetry 11/23/22 11/23/22 11/23/22 15:00 15:30 16:00 Temperature 98.7 F Pulse Rate 75 80 79 Respiratory Rate Blood Pressure 137/83 134/88 155/88 O2 Sat by Pulse Oximetry - Reevaluation(s) Reevaluation #1: 11/23/22 12:45 Patient updated on results and reevaluated. Patient is resting comfortably. She reports symptomatic relief status post medications. Reevaluation #2: 11/23/22 14:20: Case discussed with Dr. Herrera who agrees and accepts the patient for admission. Medical Decision Making - Medical Decision Making Was pt. sent in by a medical professional or institution (, L[employer], [employer], urgent care, hospital, or retirement...) When possible be specific @ -[No] Did you speak to anyone other than the patient for history (EMS, parent, family, police, friend...)? What history was obtained from this source @ -[No] Did you review nursing and triage notes (agree or disagree)? Why? @ -[I reviewed and agree with nursing and triage notes] Were old charts reviewed (outside hosp., previous admission, EMS record, old EKG, old radiological studies, urgent care reports/EKG's, retirement records)? Report findings @ -[No old charts were reviewed] Differential Diagnosis (chest pain, altered mental status, abdominal pain women, abdominal pain men, vaginal bleeding, weakness, fever, dyspnea, syncope, headache, dizziness, GI bleed, back pain, seizure, CVA, palpatations, mental health, musculoskeletal)? @ -[not applicable] EKG interpreted by me (3pts min.). @ -[As above] X-rays interpreted by me (1pt min.). @ -[None done] CT interpreted by me (1pt min.). @ -[None done] U/S interpreted by me (1pt. min.). @ -[None done] What testing was considered but not performed or refused? (CT, X-rays, U/S, labs)? Why? @ -[None] What meds were considered but not given or refused? Why? @ -[None] Did you discuss the management of the patient with other professionals (professionals i.e. [employer], [employer], lab, RT, psych nurse, secondary social studies teacher, flanger, teacher, career services officer, onsite case manager)? Give summary @ -[No] Was smoking cessation discussed for >3mins.? @ -[No] Was critical care preformed (if so, how long)? @ -[No] Were there social determinants of health that impacted care today? How? (Homelessness, low income, unemployed, alcoholism, drug addiction, transportation, low edu. Level, literacy, decrease access to med. care, retirement, rehab)? @ -[No] Was there de-escalation of care discussed even if they declined (Discuss DNR or withdrawal of care, Hospice)? DNR status @ -[No] What co-morbidities impacted this encounter? (DM, HTN, Smoking, COPD, CAD, Cancer, CVA, ARF, Chemo, Hep., AIDS, mental health diagnosis, sleep apnea, morbid obesity)? @ -[None] Was patient admitted / discharged? Hospital course, mention meds given and route, prescriptions, significant lab abnormalities, going to OR and other pertinent info. @ -Admission. This is a 42-year-old female presents to the emergency department with nausea and vomiting. Patient had a thorough history and physical exam performed heart rate regular rate and rhythm, lungs are clear to auscultation bilaterally. Abdomen is soft and non-tender, . Patient had lab work and imaging performed on the ED: Labs reveal:WBC 11.2 hemoglobin 11.4 potassium 2.1 BUNs 10, creatinine 0.30 glucose 62, calcium 4.7 magnesium 1.0 Patient was given 1L IV fluids, pepcid, zofran, bentyl, reglan while in the ED. I discussed at length with the patient who verbalized understanding and is agreeable with the plan for admission. Case discussed with Dr. Herrera who agrees and accepts the patient for admission. Patient was started on magnesium and potassium supplementation. Patient discharged in stable condition. Case discussed with Dr. Vickers who agrees with plan of care Undiagnosed new problem with uncertain prognosis? @ -[No] Drug Therapy requiring intensive monitoring for toxicity (Heparin, Nitro, Insulin, Cardizem)? @ -[No] Were any procedures done? @ -[No] Diagnosis/symptom? @ -nausea and vomiting - hypokalemia - hypomagnesemia - hypocalcemia Acute, or Chronic, or Acute on Chronic? @ -acute Uncomplicated (without systemic symptoms) or Complicated (systemic symptoms)? @ -complicated Side effects of treatment? @ -[No] Exacerbation, Progression, or Severe Exacerbation? @ -[No] Poses a threat to life or bodily function? How? (Chest pain, USA, DC, pneumonia, PE, COPD, DKA, ARF, appy, cholecystitis, CVA, Diverticulitis, Homicidal, Suicidal, threat to staff... and all critical care pts) @ -high likelihood including - Lab Data Result diagrams: 11/23/22 12:24 11/23/22 12:24 Lab Results 11/23/22 11/23/22 11/23/22 Range/Units 12:24 12:24 12:24 WBC 11.2 H (3.8-10.6) k/uL RBC 3.69 L (3.80-5.40) m/uL Hgb 11.4 (11.4-16.0) gm/dL Hct 32.4 L (34.0-46.0) % MCV 87.8 (80.0-100.0) fL MCH 31.0 (25.0-35.0) pg MCHC 35.3 (31.0-37.0) g/dL RDW 13.1 (11.5-15.5) % Plt Count 207 (150-450) k/uL MPV 7.7 Neutrophils % 83 % Lymphocytes % 11 % Monocytes % 6 % Eosinophils % 0 % Basophils % 0 % Neutrophils # 9.2 H (1.3-7.7) k/uL Lymphocytes # 1.2 (1.0-4.8) k/uL Monocytes # 0.6 (0-1.0) k/uL Eosinophils # 0.0 (0-0.7) k/uL Basophils # 0.0 (0-0.2) k/uL Sodium 145 (137-145) mmol/L Potassium 2.1 L* (3.5-5.1) mmol/L Chloride 127 H (98-107) mmol/L Carbon Dioxide 13 L (22-30) mmol/L Anion Gap 5 mmol/L BUN 10 (7-17) mg/dL Creatinine 0.30 L (0.52-1.04) mg/dL Est GFR (CKD-EPI)AfAm >90 (>60 ml/min/1.73 sqM) Est GFR (CKD-EPI)NonAf >90 (>60 ml/min/1.73 sqM) Glucose 62 L (74-99) mg/dL Calcium 4.7 L* (8.4-10.2) mg/dL Magnesium 1.0 L (1.6-2.3) mg/dL Total Bilirubin 0.3 (0.2-1.3) mg/dL AST 15 (14-36) U/L ALT 13 (4-34) U/L Alkaline Phosphatase 40 (38-126) U/L Total Protein 4.0 L (6.3-8.2) g/dL Albumin 2.0 L (3.5-5.0) g/dL Lipase 17 L (23-300) U/L Disposition Clinical Impression: Nausea & vomiting, Hypokalemia, Hypomagnesemia, Hypocalcemia Disposition: ADMITTED IP TO THIS HOSP Condition: Fair Time of Disposition: 14:22
[2022-11-23 12:47] LABS: Basophils % (A) 0 %; Eosinophils % (A) 0 %; HCT 32.4 % (34.0-46.0); HGB 11.4 gm/dL (11.4-16.0); Lymphocytes # (A) 1.2 k/uL (1.0-4.8); Lymphocytes % (A) 11 %; MCHC 35.3 g/dL (31.0-37.0); MCV 87.8 fL (80.0-100.0); Mean Platelet Volume 7.7; Monocytes # (A) 0.6 k/uL (0-1.0); Monocytes % (A) 6 %; Neutrophils # (A) 9.2 k/uL (1.3-7.7); Neutrophils % (A) 83 %; Platelet Count 207 k/uL (150-450); RBC 3.69 m/uL (3.80-5.40); RDW 13.1 % (11.5-15.5); WBC 11.2 k/uL (3.8-10.6)
[2022-11-23 12:58] LABS: ALT 13 U/L (4-34); AST 15 U/L (14-36); African American GFR (CKD) >90 (>60 ml/min/1.73 sqM); Alkaline Phosphatase 40 U/L (38-126); Anion Gap 5 mmol/L; Blood Urea Nitrogen 10 mg/dL (7-17); Carbon Dioxide 13 mmol/L (22-30); Chloride 127 mmol/L (98-107); Glucose 62 mg/dL (74-99); Lipase 17 U/L (23-300); Non-African American GFR(CKD) >90 (>60 ml/min/1.73 sqM); Sodium 145 mmol/L (137-145); Total Bilirubin 0.3 mg/dL (0.2-1.3)
[2022-11-23 13:04] LABS: Calcium 4.7 mg/dL (8.4-10.2); Potassium 2.1 mmol/L (3.5-5.1)
[2022-11-23] MEDS ORDERED: POTASSIUM CHLORIDE 60 MEQ in WATER FOR INJECTION 1 100ML.BAG IVPB STA (14:02)
[2022-11-23] MEDS ORDERED: CALCIUM GLUCONATE IN NACL 1 GM in SALINE 1 100ML.BAG IVPB ONE (14:04)
[2022-11-23] MEDS ORDERED: ACETAMINOPHEN TAB 325 MG TAB PO PRN (14:23)
[2022-11-23] MEDS ORDERED: NALOXONE 0.4 MG/ML 1 ML VIAL IV PRN (14:23)
[2022-11-23] MEDS ORDERED: IBUPROFEN 400 MG TAB PO PRN (14:23)
[2022-11-23] MEDS: POTASSIUM CHLORIDE 20 MEQ in WATER FOR INJECTION 1 100ML.BAG IVPB SCH ×2 (14:59→22:25)
[2022-11-23] MEDS: SODIUM CHLORIDE 0.9% 1,000 ML IV SCH ×2 (14:59→18:47)
[2022-11-23] MEDS: MAGNESIUM SULFATE-D5W PMX 1 GM in DEXTROSE/WATER 1 100ML.BAG IVPB SCH ×2 (15:08→15:56)
[2022-11-23 20:30] LABS: Glucose,Whole Blood 101 mg/dL (70-110)
--- NOTE | 2022-11-23 20:54 | P.HPIM ---
History of Present Illness H&P Date: 11/23/22 Chief Complaint: Nausea and vomiting Patient is a 42-year-old female with a known history of hypothyroidism, fibromyalgia, IBS, chronic GERD, degenerative joint disease, prior history of smoking and vaping and marijuana use and anxiety presents to ER with complaints of nausea and vomiting for the past 2 days. Patient is unable to tolerate oral diet. Patient is also complaining of abdominal pain mainly in the mid abdomen and states that it feels like previous IBS flareup. Denies any dysuria or hematuria. No fever no chills. Denies any complaints of cough or sputum production. No other recent illnesses. Laboratory data showed WBC 11.3 hemoglobin 11.4 and platelets 207 Sodium 145 potassium 2.1 chloride 127 anion gap 13 and BUN 10 and creatinine 0.3 Review of Systems Constitutional: Patient denies any fever or chills . Generalized weakness. Abdomen: Patient is complaining of nausea vomiting and abd. pain Cardiovascular: Patient denies any chest pain or short of breath no palpitations. Respiratory: patient denied any cough . no sputum production. No shortness of breath Neurologic: Patient denied any numbness or tingling headache. Musculoskeletal: Patient denies any complaints of joint swelling or deformity. Skin: Negative Psychiatric: Negative Endocrine: No heat or cold intolerance. No recent weight gain. Genitourinary: No dysuria or hematuria. All other 14 point ROS negative except the above Past Medical History Past Medical History: Fibromyalgia, Thyroid Disorder Additional Past Medical History / Comment(s): DDD, bulging discs, neuropathy in legs, thyroid nodules, anemia, environmental allergies, constipation/diarrhea, IBS diagnosed in 2019, chronic gastritis. History of Any Multi-Drug Resistant Organisms: None Reported Past Surgical History: Hysterectomy, Orthopedic Surgery Additional Past Surgical History / Comment(s): Right wrist and forearm surgery, D&C, mass on vocal cords - surgery and biopsy. Past Anesthesia/Blood Transfusion Reactions: Postoperative Nausea & Vomiting (PONV) Additional Past Anesthesia/Blood Transfusion Reaction / Comment(s): Constipation post-op. Past Psychological History: Anxiety Smoking Status: Former smoker, Vaper Past Alcohol Use History: None Reported Past Drug Use History: Marijuana - Past Family History Mother Family Medical History: No Reported History Father Additional Family Medical History / Comment(s): "Cardiovascular swelling". Medications and Allergies Home Medications Medication Instructions Recorded Confirmed Type HYDROcodone/APAP 10-325MG [[place] 1 tab PO QID 04/03/17 11/23/22 History 10-325] Loratadine [Claritin] 10 mg PO DAILY PRN 04/03/17 11/23/22 History Pantoprazole Sodium [Protonix] 40 mg PO BID 06/11/20 11/23/22 History Dicyclomine [Bentyl] 10 mg PO QID PRN 09/18/22 11/23/22 History Ergocalciferol (Vitamin D2) 1,250 mcg PO Q7DAYS 09/18/22 11/23/22 History [Drisdol (50,000 Iu)] Metoclopramide [Reglan] 5 mg PO AC-TID PRN 09/18/22 11/23/22 History FLUoxetine HCL [PROzac] 10 mg PO DAILY 11/23/22 11/23/22 History Allergies Allergy/AdvReac Type Severity Reaction Status Date / Time propoxyphene Allergy Rash/Hives Verified 11/23/22 14:41 [From RaySumit] Physical Exam Vitals: Vital Signs Temp Pulse Pulse Resp BP BP Pulse Ox 11/23/22 19:00 98.3 F 78 16 117/71 97 11/23/22 16:00 98.7 F 79 155/88 11/23/22 15:30 80 134/88 11/23/22 15:00 75 137/83 11/23/22 14:55 80 11/23/22 13:00 72 18 137/83 95 11/23/22 10:30 98.7 F 86 18 159/94 100 Intake and Output 11/23/22 11/23/22 11/23/22 06:59 14:59 22:59 Other: Weight 77.111 kg PHYSICAL EXAMINATION: Patient is lying in the bed comfortably, mild distress due to pain, awake alert and oriented.. HEENT: Normocephalic. Neck is supple. Pupils reactive. Nostrils clear. Oral cavity is moist. Neck reveals no JVD, carotid bruits, or thyromegaly. CHEST EXAMINATION: Trachea is central. Symmetrical expansion. Lung sullivan clear to auscultation and percussion. CARDIAC: Normal S1, S2 with no gallops. No murmurs ABDOMEN: Soft. Bowel sounds present. Nontender. No guarding or rigidity. No organomegaly. No abdominal bruits. Extremities: reveal no edema. No clubbing or cyanosis Neurologically awake, alert, oriented x3 with well-coordinated movements. No focal deficits noted Skin: No rash or skin lesions. Psychiatric: Coperative. Nonsuicidal, anxious. Musculoskeletal: No joint swelling or deformity. Normal range of motion. Results CBC & Chem 7: 11/23/22 12:24 11/23/22 12:24 Labs: Abnormal Lab Results - Last 24 Hours (Table) 11/23/22 11/23/22 11/23/22 Range/Units 12:24 12:24 12:24 WBC 11.2 H (3.8-10.6) k/uL RBC 3.69 L (3.80-5.40) m/uL Hct 32.4 L (34.0-46.0) % Neutrophils # 9.2 H (1.3-7.7) k/uL Potassium 2.1 L* (3.5-5.1) mmol/L Chloride 127 H (98-107) mmol/L Carbon Dioxide 13 L (22-30) mmol/L Creatinine 0.30 L (0.52-1.04) mg/dL Glucose 62 L (74-99) mg/dL Calcium 4.7 L* (8.4-10.2) mg/dL Magnesium 1.0 L (1.6-2.3) mg/dL Total Protein 4.0 L (6.3-8.2) g/dL Albumin 2.0 L (3.5-5.0) g/dL Lipase 17 L (23-300) U/L Thrombosis Risk Factor Assmnt - DVT/VTE Prophylaxis DVT/VTE Prophylaxis: Pharmacologic Prophylaxis ordered Assessment and Plan Assessment: Intractable nausea and vomiting Severe hypokalemia and hypomagnesemia Hypocalcemia Irritable bowel syndrome flareup Chronic GERD Degenerative joint disease Fibromyalgia DVT prophylaxis and GI prophylaxis Plan: Patient will be continued on IV hydration. Replace potassium magnesium and repeat BMP. Continue to follow closely. Symptomatic management for nausea vomiting and pain management. Continue with home medications. Time with Patient: Greater than 30
[2022-11-23] MEDS ORDERED: METOCLOPRAMIDE 5 MG TAB PO PRN (22:52)
[2022-11-23] MEDS ORDERED: DICYCLOMINE 10 MG CAP PO PRN (22:52)
[2022-11-23] MEDS ORDERED: LORATADINE 10 MG TAB PO PRN (22:52)
[2022-11-23] MEDS ORDERED: PANTOPRAZOLE 40 MG TABLET PO SCH (23:00)
[2022-11-23] MEDS: ONDANSETRON 4 MG/2 ML VIAL IVP PRN (23:30)
[2022-11-24] MEDS: LORazepam 2 MG/ML INJ IV PRN ×3 (01:07→18:44)
[2022-11-24] MEDS: POTASSIUM CHLORIDE ER 20 MEQ TAB.ER PO SCH ×2 (01:07→04:46)
[2022-11-24] MEDS: DEXTROSE 5%-0.45% NACL 1,000 ML IV SCH ×3 (01:08→18:48)
[2022-11-24] MEDS ORDERED: METOCLOPRAMIDE 5 MG/ML 2 ML VIAL IVP STA (01:13)
[2022-11-24] MEDS: ONDANSETRON 4 MG/2 ML VIAL IVP PRN ×2 (04:10→14:09)
[2022-11-24] MEDS: POTASSIUM CHLORIDE 20 MEQ in WATER FOR INJECTION 1 100ML.BAG IVPB SCH ×3 (04:20→04:41)
[2022-11-24 06:18] LABS: Glucose,Whole Blood 126 mg/dL (70-110)
[2022-11-24] MEDS ORDERED: DICYCLOMINE 10 MG/ML 2 ML AMP IM PRN (06:28)
[2022-11-24] MEDS: METOCLOPRAMIDE 5 MG/ML 2 ML VIAL IVP SCH ×4 (07:06→23:20)
[2022-11-24 08:29] LABS: Basophils % (A) 0 %; Eosinophils % (A) 0 %; HCT 39.1 % (34.0-46.0); HGB 13.6 gm/dL (11.4-16.0); Lymphocytes # (A) 1.8 k/uL (1.0-4.8); Lymphocytes % (A) 14 %; MCH 30.4 pg (25.0-35.0); MCHC 34.9 g/dL (31.0-37.0); MCV 87.2 fL (80.0-100.0); Mean Platelet Volume 7.7; Monocytes # (A) 0.5 k/uL (0-1.0); Monocytes % (A) 4 %; Neutrophils # (A) 10.4 k/uL (1.3-7.7); Neutrophils % (A) 81 %; Platelet Count 247 k/uL (150-450); RBC 4.48 m/uL (3.80-5.40); RDW 12.9 % (11.5-15.5); WBC 12.7 k/uL (3.8-10.6)
[2022-11-24 08:42] LABS: African American GFR (CKD) >90 (>60 ml/min/1.73 sqM); Anion Gap 12 mmol/L; Blood Urea Nitrogen 10 mg/dL (7-17); Calcium 9.4 mg/dL (8.4-10.2); Carbon Dioxide 22 mmol/L (22-30); Chloride 104 mmol/L (98-107); Glucose 131 mg/dL (74-99); Magnesium 2.1 mg/dL (1.6-2.3); Non-African American GFR(CKD) >90 (>60 ml/min/1.73 sqM); Phosphorus 2.5 mg/dL (2.5-4.5); Sodium 138 mmol/L (137-145)
[2022-11-24] MEDS: PANTOPRAZOLE 40 MG/10 ML VIAL IVP SCH ×2 (09:23→19:52)
[2022-11-24] MEDS: HYDROmorphone 0.5 MG/0.5 ML SYRINGE IVP PRN (11:35)
[2022-11-24] MEDS: FLUoxetine HCL 10 MG CAP PO SCH (11:37)
[2022-11-24 11:52] LABS: Glucose,Whole Blood 111 mg/dL (70-110)
[2022-11-25] MEDS: METOCLOPRAMIDE 5 MG/ML 2 ML VIAL IVP SCH ×3 (05:14→18:23)
[2022-11-25] MEDS: DEXTROSE 5%-0.45% NACL 1,000 ML IV SCH ×3 (05:14→17:57)
[2022-11-25] MEDS: LORazepam 2 MG/ML INJ IV PRN ×4 (05:40→21:44)
[2022-11-25 08:32] LABS: Basophils % (A) 0 %; Eosinophils # (A) 0.1 k/uL (0-0.7); Eosinophils % (A) 1 %; HCT 41.8 % (34.0-46.0); HGB 14.7 gm/dL (11.4-16.0); Lymphocytes # (A) 1.5 k/uL (1.0-4.8); Lymphocytes % (A) 11 %; MCH 30.9 pg (25.0-35.0); MCHC 35.2 g/dL (31.0-37.0); MCV 87.8 fL (80.0-100.0); Mean Platelet Volume 8.5; Monocytes # (A) 0.6 k/uL (0-1.0); Monocytes % (A) 4 %; Neutrophils # (A) 12.4 k/uL (1.3-7.7); Neutrophils % (A) 84 %; Platelet Count 227 k/uL (150-450); RBC 4.76 m/uL (3.80-5.40); RDW 12.8 % (11.5-15.5); WBC 14.7 k/uL (3.8-10.6)
[2022-11-25] MEDS: ONDANSETRON 4 MG/2 ML VIAL IVP PRN ×3 (08:41→21:45)
[2022-11-25] MEDS: FLUoxetine HCL 10 MG CAP PO SCH ×2 (08:41→08:56)
[2022-11-25] MEDS: PANTOPRAZOLE 40 MG/10 ML VIAL IVP SCH ×2 (08:41→21:44)
[2022-11-25] MEDS: HYDROmorphone 0.5 MG/0.5 ML SYRINGE IVP PRN ×2 (08:41→21:45)
[2022-11-25 08:48] LABS: African American GFR (CKD) >90 (>60 ml/min/1.73 sqM); Anion Gap 10 mmol/L; Blood Urea Nitrogen 8 mg/dL (7-17); Calcium 9.2 mg/dL (8.4-10.2); Carbon Dioxide 25 mmol/L (22-30); Chloride 104 mmol/L (98-107); Glucose 133 mg/dL (74-99); Non-African American GFR(CKD) >90 (>60 ml/min/1.73 sqM); Potassium 3.7 mmol/L (3.5-5.1); Sodium 139 mmol/L (137-145)
[2022-11-25] MEDS ORDERED: POTASSIUM CHLORIDE 20 MEQ in WATER FOR INJECTION 1 100ML.BAG IVPB STA (11:52)
[2022-11-25] MEDS ORDERED: cloNIDine 0.1 MG/24HR PATCH TRANSDERM SCH (12:00)
[2022-11-25] MEDS ORDERED: LACTULOSE 20 GM/30 ML CUP PO ONE (18:00)
--- NOTE | 2022-11-26 01:08 | P.PN ---
Subjective Progress Note Date: 11/24/22 Patient is a 42-year-old female with a known history of hypothyroidism, fibromyalgia, IBS, chronic GERD, degenerative joint disease, prior history of smoking and vaping and marijuana use and anxiety presents to ER with complaints of nausea and vomiting for the past 2 days. Patient is unable to tolerate oral diet. Patient is also complaining of abdominal pain mainly in the mid abdomen and states that it feels like previous IBS flareup. Denies any dysuria or hematuria. No fever no chills. Denies any complaints of cough or sputum production. No other recent illnesses. Laboratory data showed WBC 11.3 hemoglobin 11.4 and platelets 207 Sodium 145 potassium 2.1 chloride 127 anion gap 13 and BUN 10 and creatinine 0.3 11/24/2022 Patient is currently lying in the bed. Awake alert and oriented x3. Nausea is improved compared to yesterday. Still having abdominal pain but slightly better. No complaints of chest pain or shortness of breath. no headache or dizziness or lightheadedness. Patient has been afebrile. Laboratory data showed WBC 12.7 hemoglobin 13.6 and platelets 247 Sodium 138 potassium 4.0 chloride 108 bicarb is 22 BUN 10 and creatinine 0.62. Current medications reviewed. Objective - Vital Signs Vital signs: Vital Signs Temp 98.2 F 11/24/22 19:36 Pulse 79 11/24/22 19:36 Resp 16 11/24/22 19:36 BP 108/72 11/24/22 19:36 Pulse Ox 96 11/24/22 19:36 FiO2 Intake & Output 11/24/22 11/24/22 11/25/22 06:59 18:59 06:59 Intake Total 240 Output Total 50 Balance -50 240 Weight 77.111 kg Intake: Oral 240 Output: Emesis 50 Other: Voiding Method Toilet Toilet # Voids 1 5 - Exam PHYSICAL EXAMINATION: Patient is lying in the bed comfortably, no distress, awake alert and oriented.. HEENT: Normocephalic. Neck is supple. Pupils reactive. Nostrils clear. Oral cavity is moist. Neck reveals no JVD, carotid bruits, or thyromegaly. CHEST EXAMINATION: Trachea is central. Symmetrical expansion. Lung sullivan clear to auscultation and percussion. CARDIAC: Normal S1, S2 with no gallops. No murmurs ABDOMEN: Soft. Bowel sounds present. Nontender. No guarding or rigidity. No organomegaly. No abdominal bruits. Extremities: reveal no edema. No clubbing or cyanosis Neurologically awake, alert, oriented x3 with well-coordinated movements. No focal deficits noted Skin: No rash or skin lesions. Psychiatric: Coperative. Nonsuicidal, anxious. Musculoskeletal: No joint swelling or deformity. Normal range of motion. - Labs CBC & Chem 7: 11/25/22 07:48 11/25/22 07:48 Labs: Abnormal Lab Results - Last 24 Hours (Table) 11/24/22 11/24/22 11/24/22 Range/Units 06:16 08:05 08:05 WBC 12.7 H (3.8-10.6) k/uL Neutrophils # 10.4 H (1.3-7.7) k/uL Glucose 131 H (74-99) mg/dL POC Glucose (mg/dL) 126 H (70-110) mg/dL 11/24/22 Range/Units 11:50 WBC (3.8-10.6) k/uL Neutrophils # (1.3-7.7) k/uL Glucose (74-99) mg/dL POC Glucose (mg/dL) 111 H (70-110) mg/dL Assessment and Plan Assessment: Intractable nausea and vomiting Severe hypokalemia and hypomagnesemia. improved Irritable bowel syndrome flareup Chronic GERD Degenerative joint disease Fibromyalgia DVT prophylaxis and GI prophylaxis Plan: Patient will be continued on IV hydration with D5 half-normal saline. Encourage oral diet as tolerated. Continue with symptomatic management for nausea. Continue with Bentyl and follow-up CBC and BMP. Time with Patient: Greater than 30
[2022-11-26] MEDS: METOCLOPRAMIDE 5 MG/ML 2 ML VIAL IVP SCH ×4 (02:19→17:37)
[2022-11-26] MEDS: HYDROmorphone 0.5 MG/0.5 ML SYRINGE IVP PRN (03:58)
[2022-11-26] MEDS: ONDANSETRON 4 MG/2 ML VIAL IVP PRN ×2 (03:59→10:25)
[2022-11-26] MEDS: LORazepam 2 MG/ML INJ IV PRN (03:59)
--- NOTE | 2022-11-26 06:57 | XR ---
EXAMINATION TYPE: XR chest 1V DATE OF EXAM: 11/26/2022 CLINICAL HISTORY: Leukocytosis. TECHNIQUE: Single AP portable upright view of the chest is obtained. COMPARISON: Chest x-ray from October 01, 2020 FINDINGS: No suspicious focal airspace opacity, pleural effusion, or pneumothorax seen bilaterally. Cardiac silhouette size is stable and within normal limits. Osseous structures are intact. IMPRESSION: No acute pulmonary infiltrate. No significant change from prior.
[2022-11-26 09:06] LABS: Basophils % (A) 1 %; Eosinophils # (A) 0.1 k/uL (0-0.7); Eosinophils % (A) 1 %; HCT 38.5 % (34.0-46.0); HGB 13.1 gm/dL (11.4-16.0); Lymphocytes # (A) 2.6 k/uL (1.0-4.8); Lymphocytes % (A) 38 %; MCH 29.8 pg (25.0-35.0); MCHC 34.2 g/dL (31.0-37.0); MCV 87.2 fL (80.0-100.0); Mean Platelet Volume 7.8; Monocytes # (A) 0.3 k/uL (0-1.0); Monocytes % (A) 5 %; Neutrophils # (A) 3.6 k/uL (1.3-7.7); Neutrophils % (A) 53 %; Platelet Count 213 k/uL (150-450); RBC 4.41 m/uL (3.80-5.40); WBC 6.8 k/uL (3.8-10.6)
[2022-11-26 09:26] LABS: African American GFR (CKD) >90 (>60 ml/min/1.73 sqM); Anion Gap 6 mmol/L; Blood Urea Nitrogen 8 mg/dL (7-17); Calcium 8.9 mg/dL (8.4-10.2); Carbon Dioxide 25 mmol/L (22-30); Chloride 106 mmol/L (98-107); Glucose 100 mg/dL (74-99); Non-African American GFR(CKD) >90 (>60 ml/min/1.73 sqM); Potassium 4.2 mmol/L (3.5-5.1); Sodium 137 mmol/L (137-145)
[2022-11-26] MEDS: FLUoxetine HCL 10 MG CAP PO SCH (10:24)
[2022-11-26] MEDS: PANTOPRAZOLE 40 MG/10 ML VIAL IVP SCH (10:24)
[2022-11-26] MEDS: SODIUM CHLORIDE 0.9% 1,000 ML IV SCH ×2 (10:25→16:02)
[2022-11-26] MEDS ORDERED: DOCUSATE 100 MG CAP PO SCH (14:45)
[2022-11-26 16:02] VITALS: BP 109/69; PULSE 85; RESP 18; TEMP 96.8
== END 2022-11-26 18:26 | disposition home or self-care (01) | DRG 641 ==
LOC: EC 10:29 → 3SCARD 14:04
PROVIDERS: ADMIT Internal Medicine; ATTEND Internal Medicine
DX: E87.6 Hypokalemia (principal); E83.42 Hypomagnesemia; F41.9 Anxiety disorder, unspecified; E03.9 Hypothyroidism, unspecified; E83.51 Hypocalcemia; K21.9 Gastro-esophageal reflux disease without esophagitis; K58.9 Irritable bowel syndrome, unspecified; M19.90 Unspecified osteoarthritis, unspecified site; M79.7 Fibromyalgia; Z79.899 Other long term (current) drug therapy; E04.1 Nontoxic single thyroid nodule; F17.290 Nicotine dependence, other tobacco product, uncomplicated; Z28.310 Unvaccinated for COVID-19; Z88.8 Allergy status to other drugs, medicaments and biological substances
CPT/HCPCS: 36415; 71045; 80048; 80053; 83605; 83690; 83735; 84100; 85025; 93005; 96361; 96365; 96368; 96375; 99285

== ENCOUNTER 2023-01-06 20:51 | Observation (INO) | payer MEDICARE, OTHER ==
[2023-01-06] MEDS ORDERED: ONDANSETRON ODT 4 MG TAB PO STA (22:47)
--- NOTE | 2023-01-06 22:48 | ED ---
Abdominal Pain HPI - General Chief Complaint: Abdominal Pain Stated Complaint: Vomiting and sweating Time Seen by Provider: 01/06/23 22:48 Source: patient, RN notes reviewed Mode of arrival: ambulatory Limitations: no limitations - History of Present Illness Initial Comments: Patient is a 42 year old who presents for vomiting. She believes she is having an IBS flare up. She has been consistently vomiting since 6 AM. She reports lower abdominal pain. No fever, chills, diarrhea. Denies alcohol and drug use including marijuana. - Related Data Home Medications Medication Instructions Recorded Confirmed HYDROcodone/APAP 10-325MG [[place] 1 tab PO QID 04/03/17 11/23/22 10-325] Loratadine [Claritin] 10 mg PO DAILY PRN 04/03/17 11/23/22 Pantoprazole Sodium [Protonix] 40 mg PO BID 06/11/20 11/23/22 Dicyclomine [Bentyl] 10 mg PO QID PRN 09/18/22 11/23/22 Ergocalciferol (Vitamin D2) 1,250 mcg PO Q7DAYS 09/18/22 11/23/22 [Drisdol (50,000 Iu)] Metoclopramide [Reglan] 5 mg PO AC-TID PRN 09/18/22 11/23/22 FLUoxetine HCL [PROzac] 10 mg PO DAILY 11/23/22 11/23/22 Previous Rx's Medication Instructions Recorded LORazepam [Ativan] 0.5 mg PO BID PRN 3 Days #6 tab 11/26/22 Dicyclomine [Bentyl] 20 mg PO TID #30 tablet 01/07/23 Metoclopramide [Reglan] 10 mg PO TID PRN #15 tab 01/07/23 Allergies Allergy/AdvReac Type Severity Reaction Status Date / Time propoxyphene Allergy Rash/Hives Verified 11/23/22 14:41 [From [facility]] Review of Systems ROS Statement: Those systems with pertinent positive or pertinent negative responses have been documented in the HPI. ROS Other: All systems not noted in ROS Statement are negative. Past Medical History Past Medical History: Fibromyalgia, Thyroid Disorder Additional Past Medical History / Comment(s): DDD, bulging discs, neuropathy in legs, thyroid nodules, anemia, environmental allergies, constipation/diarrhea, IBS diagnosed in 2020, chronic gastritis. History of Any Multi-Drug Resistant Organisms: None Reported Past Surgical History: Hysterectomy, Orthopedic Surgery Additional Past Surgical History / Comment(s): Right wrist and forearm surgery, D&C, mass on vocal cords - surgery and biopsy. Past Anesthesia/Blood Transfusion Reactions: Postoperative Nausea & Vomiting (PONV) Additional Past Anesthesia/Blood Transfusion Reaction / Comment(s): Constipation post-op. Past Psychological History: Anxiety Smoking Status: Former smoker, Vaper Past Alcohol Use History: None Reported Past Drug Use History: Marijuana - Past Family History Mother Family Medical History: No Reported History Father Family Medical History: COPD Additional Family Medical History / Comment(s): "Cardiovascular swelling". General Exam Limitations: no limitations General appearance: alert, in no apparent distress Head exam: Present: atraumatic, normocephalic, normal inspection Eye exam: Present: normal appearance, PERRL, EOMI. Absent: scleral icterus, conjunctival injection, periorbital swelling Respiratory exam: Present: normal lung sounds bilaterally. Absent: respiratory distress, wheezes, rales, rhonchi, stridor Cardiovascular Exam: Present: regular rate, normal rhythm, normal heart sounds. Absent: systolic murmur, diastolic murmur, rubs, gallop, clicks GI/Abdominal exam: Present: soft, tenderness (Generalized), normal bowel sounds. Absent: distended, guarding, rebound, rigid Neurological exam: Present: alert, oriented X3, CN II-XII intact Psychiatric exam: Present: normal affect, normal mood Skin exam: Present: warm, dry, intact, normal color. Absent: rash Course Vital Signs 01/06/23 01/07/23 01/07/23 20:55 01:58 04:00 Temperature 98.3 F Pulse Rate 92 99 96 Respiratory 18 18 16 Rate Blood Pressure 162/98 161/109 149/95 O2 Sat by Pulse 99 99 98 Oximetry Medical Decision Making - Medical Decision Making Was pt. sent in by a medical professional or institution (, LANE, [employer] [facility], urgent care, hospital, or [facility]...) When possible be specific @ -[No] Did you speak to anyone other than the patient for history (EMS, parent, family, police, friend...)? What history was obtained from this source @ -[No] Did you review nursing and triage notes (agree or disagree)? Why? @ -[I reviewed and agree with nursing and triage notes] Were old charts reviewed (outside hosp., previous admission, EMS record, old EKG, old radiological studies, urgent care reports/EKG's, [facility] records)? Report findings @ -[No old charts were reviewed] Differential Diagnosis (chest pain, altered mental status, abdominal pain women, abdominal pain men, vaginal bleeding, weakness, fever, dyspnea, syncope, headache, dizziness, GI bleed, back pain, seizure, CVA, palpatations, mental health)? @ -Differential Abdominal Pain Women: Appendicitis, Cholecystitis, diverticulosis, ischemic bowel, pancreatitis, hepatitis, UTI, gastroenteritis, AAA, incarcerated hernia, bowel obstruction, constipation, inflammatory bowel, hepatitis, peptic ulcer disease, splenic infarction, perforated viscus, vulvitis, ovarian torsion, PID, kidney stone, placenta abruption, this is not meant to be an all-inclusive list EKG interpreted by me (3pts min.). @ -[As above] X-rays interpreted by me (1pt min.). @ -[None done] CT interpreted by me (1pt min.). @ -[None done] U/S interpreted by me (1pt. min.). @ -[None done] What testing was considered but not performed or refused? (CT, X-rays, U/S, labs)? Why? @ -[None] What meds were considered but not given or refused? Why? @ -[None] Did you discuss the management of the patient with other professionals (professionals i.e. , PA, [employer], lab, RT, psych nurse, licensed social worker, roll tension tester, teacher, reserve officer, rifle case repairer)? Give summary @ -[No] Was smoking cessation discussed for >3mins.? @ -[No] Was critical care preformed (if so, how long)? @ -[No] Were there social determinants of health that impacted care today? How? (Homelessness, low income, unemployed, alcoholism, drug addiction, transportation, low edu. Level, literacy, decrease access to med. care, fdc, rehab)? @ -[No] Was there de-escalation of care discussed even if they declined (Discuss DNR or withdrawal of care, Hospice)? DNR status @ -[No] What co-morbidities impacted this encounter? (DM, HTN, Smoking, COPD, CAD, Cancer, CVA, ARF, Chemo, Hep., AIDS, mental health diagnosis, sleep apnea, morbid obesity)? @ -[None] Was patient admitted / discharged? Hospital course, mention meds given and route, prescriptions, significant lab abnormalities, going to OR and other pertinent info. @ -Patient presenting with abdominal pain and vomiting. Patient vomiting in the waiting room. Upon evaluation she is hemodynamically stable. The abdomen is soft there is generalized mild to moderate tenderness without rebound tenderness or guarding.Laboratory studies obtained. There is significant leukocytosis at 22.9 without shift. Lactic is elevated at 2.2, likely related to dehydration. There is anion gap metabolic acidosis, carbon dioxide 20, anion gap 18. CT of the abdomen and pelvis is negative for acute process however vomiting was poorly controlled in the emergency department. Patient will benefit from IV hydration she will be admitted to observation Dr. Walker accepts admission. Undiagnosed new problem with uncertain prognosis? @ -[No] Drug Therapy requiring intensive monitoring for toxicity (Heparin, Nitro, Insulin, Cardizem)? @ -[No] Were any procedures done? @ -[No] Diagnosis/symptom? @ -abdominal pain, vomiting Acute, or Chronic, or Acute on Chronic? @ -acute Uncomplicated (without systemic symptoms) or Complicated (systemic symptoms)? @ -complicated Side effects of treatment? @ -[No] Exacerbation, Progression, or Severe Exacerbation? @ -[No] Poses a threat to life or bodily function? How? (Chest pain, USA, VT, pneumonia, PE, COPD, DKA, ARF, appy, cholecystitis, CVA, Diverticulitis, Homicidal, S uicidal, threat to staff... and all critical care pts) @ -[No] Dr. Guerrero is my attending - Lab Data Result diagrams: 01/07/23 00:30 01/07/23 00:30 Lab Results 01/07/23 01/07/23 01/07/23 Range/Units 00:30 00:30 00:30 WBC 22.9 H (3.8-10.6) k/uL RBC 4.87 (3.80-5.40) m/uL Hgb 14.4 (11.4-16.0) gm/dL Hct 41.2 (34.0-46.0) % MCV 84.6 (80.0-100.0) fL MCH 29.6 (25.0-35.0) pg MCHC 35.0 (31.0-37.0) g/dL RDW 13.5 (11.5-15.5) % Plt Count 293 (150-450) k/uL MPV 8.0 Neutrophils % 92 % Lymphocytes % 5 % Monocytes % 2 % Eosinophils % 1 % Basophils % 0 % Neutrophils # 21.0 H (1.3-7.7) k/uL Lymphocytes # 1.2 (1.0-4.8) k/uL Monocytes # 0.4 (0-1.0) k/uL Eosinophils # 0.2 (0-0.7) k/uL Basophils # 0.0 (0-0.2) k/uL Sodium 142 (137-145) mmol/L Potassium 3.6 (3.5-5.1) mmol/L Chloride 104 (98-107) mmol/L Carbon Dioxide 20 L (22-30) mmol/L Anion Gap 18 mmol/L BUN 19 H (7-17) mg/dL Creatinine 0.66 (0.52-1.04) mg/dL Est GFR (CKD-EPI)AfAm >90 (>60 ml/min/1.73 sqM) Est GFR (CKD-EPI)NonAf >90 (>60 ml/min/1.73 sqM) Glucose 154 H (74-99) mg/dL Lactic Ac Sepsis Rflx Plasma Lactic Acid Zaid 2.2 H* (0.7-2.0) mmol/L Calcium 10.6 H (8.4-10.2) mg/dL Magnesium 1.7 (1.6-2.3) mg/dL Total Bilirubin 0.6 (0.2-1.3) mg/dL AST 31 (14-36) U/L ALT 48 H (4-34) U/L Alkaline Phosphatase 138 H (38-126) U/L Total Protein 9.4 H (6.3-8.2) g/dL Albumin 5.5 H (3.5-5.0) g/dL Lipase 38 (23-300) U/L 01/07/23 Range/Units 01:33 WBC (3.8-10.6) k/uL RBC (3.80-5.40) m/uL Hgb (11.4-16.0) gm/dL Hct (34.0-46.0) % MCV (80.0-100.0) fL MCH (25.0-35.0) pg MCHC (31.0-37.0) g/dL RDW (11.5-15.5) % Plt Count (150-450) k/uL MPV Neutrophils % % Lymphocytes % % Monocytes % % Eosinophils % % Basophils % % Neutrophils # (1.3-7.7) k/uL Lymphocytes # (1.0-4.8) k/uL Monocytes # (0-1.0) k/uL Eosinophils # (0-0.7) k/uL Basophils # (0-0.2) k/uL Sodium (137-145) mmol/L Potassium (3.5-5.1) mmol/L Chloride (98-107) mmol/L Carbon Dioxide (22-30) mmol/L Anion Gap mmol/L BUN (7-17) mg/dL Creatinine (0.52-1.04) mg/dL Est GFR (CKD-EPI)AfAm (>60 ml/min/1.73 sqM) Est GFR (CKD-EPI)NonAf (>60 ml/min/1.73 sqM) Glucose (74-99) mg/dL Lactic Ac Sepsis Rflx Y Plasma Lactic Acid Zaid (0.7-2.0) mmol/L Calcium (8.4-10.2) mg/dL Magnesium (1.6-2.3) mg/dL Total Bilirubin (0.2-1.3) mg/dL AST (14-36) U/L ALT (4-34) U/L Alkaline Phosphatase (38-126) U/L Total Protein (6.3-8.2) g/dL Albumin (3.5-5.0) g/dL Lipase (23-300) U/L Disposition Clinical Impression: History of IBS, Abdominal pain, Vomiting Disposition: HOME SELF-CARE Condition: Good Instructions (If sedation given, give patient instructions): Irritable Bowel Syndrome (ED) Additional Instructions: Take medication as directed. Increase fluid intake. Please follow-up with your primary care provider in 1-2 days. Return to the emergency department if you experience new, concerning, or worsening symptoms. Prescriptions: Dicyclomine [Bentyl] 20 mg PO TID #30 tablet Metoclopramide [Reglan] 10 mg PO TID PRN #15 tab PRN Reason: Nausea Is patient prescribed a controlled substance at d/c from ED?: No Referrals: None,Stated [REFERRING] - 1-2 days
[2023-01-07 00:40] LABS: Basophils % (A) 0 %; Eosinophils # (A) 0.2 k/uL (0-0.7); Eosinophils % (A) 1 %; HCT 41.2 % (34.0-46.0); HGB 14.4 gm/dL (11.4-16.0); Lymphocytes # (A) 1.2 k/uL (1.0-4.8); Lymphocytes % (A) 5 %; MCH 29.6 pg (25.0-35.0); MCV 84.6 fL (80.0-100.0); Monocytes # (A) 0.4 k/uL (0-1.0); Monocytes % (A) 2 %; Neutrophils % (A) 92 %; Platelet Count 293 k/uL (150-450); RBC 4.87 m/uL (3.80-5.40); RDW 13.5 % (11.5-15.5); WBC 22.9 k/uL (3.8-10.6)
[2023-01-07 00:55] LABS: ALT 48 U/L (4-34); AST 31 U/L (14-36); African American GFR (CKD) >90 (>60 ml/min/1.73 sqM); Albumin 5.5 g/dL (3.5-5.0); Alkaline Phosphatase 138 U/L (38-126); Anion Gap 18 mmol/L; Blood Urea Nitrogen 19 mg/dL (7-17); Calcium 10.6 mg/dL (8.4-10.2); Carbon Dioxide 20 mmol/L (22-30); Chloride 104 mmol/L (98-107); Glucose 154 mg/dL (74-99); Lipase 38 U/L (23-300); Magnesium 1.7 mg/dL (1.6-2.3); Non-African American GFR(CKD) >90 (>60 ml/min/1.73 sqM); Potassium 3.6 mmol/L (3.5-5.1); Sodium 142 mmol/L (137-145); Total Bilirubin 0.6 mg/dL (0.2-1.3); Total Protein 9.4 g/dL (6.3-8.2)
[2023-01-07] MEDS ORDERED: KETOROLAC 15 MG/ML 1 ML VIAL IVP STA (01:39)
[2023-01-07] MEDS ORDERED: SODIUM CHLORIDE 0.9% 1,000 ML IV STA ×2 (01:39→04:08)
[2023-01-07] MEDS ORDERED: DICYCLOMINE 10 MG/ML 2 ML AMP IM STA (02:05)
[2023-01-07] MEDS ORDERED: METOCLOPRAMIDE 5 MG/ML 2 ML VIAL IVP STA ×2 (02:05→15:04)
--- NOTE | 2023-01-07 04:00 | CT ---
EXAM: CT Abdomen and Pelvis With Intravenous Contrast CLINICAL HISTORY: ITS.REASON CT Reason: pain vomiting TECHNIQUE: Axial computed tomography images of the abdomen and pelvis with intravenous contrast. CTDI is 18.2 mGy and DLP is 901.1 mGy-cm. This CT exam was performed using one or more of the following dose reduction techniques: automated exposure control, adjustment of the mA and/or kV according to patient size, and/or use of iterative reconstruction technique. COMPARISON: 04/22/2022 FINDINGS: Lung bases: Unremarkable. No mass. No consolidation. ABDOMEN: Liver: Unremarkable. No mass. Gallbladder and bile ducts: Unremarkable. No calcified stones. No ductal dilation. Pancreas: Unremarkable. No mass. No ductal dilation. Spleen: Unremarkable. No splenomegaly. Adrenals: Unremarkable. No mass. Kidneys and ureters: Unremarkable. No solid mass. No hydronephrosis. Stomach and bowel: Unremarkable. No obstruction. No mucosal thickening. PELVIS: Appendix: No findings to suggest acute appendicitis. Bladder: Unremarkable. No mass. Reproductive: Unremarkable as visualized. ABDOMEN and PELVIS: Intraperitoneal space: Unremarkable. No free air. No significant fluid collection. Bones/joints: No acute fracture. No dislocation. Soft tissues: Unremarkable. Vasculature: Unremarkable. No abdominal aortic aneurysm. Lymph nodes: Unremarkable. No enlarged lymph nodes. IMPRESSION: Normal abdomen and pelvis CT.
[2023-01-07] MEDS ORDERED: PROCHLORPERAZINE INJ 10 MG/2 ML VIAL IVP STA (04:08)
[2023-01-07] MEDS ORDERED: NALOXONE 0.4 MG/ML 1 ML VIAL IV PRN (04:30)
[2023-01-07] MEDS: ONDANSETRON 4 MG/2 ML VIAL IVP PRN ×2 (08:54→17:50)
[2023-01-07 09:09] LABS: Appearance,Urine Clear (Clear); Bilirubin,Urine Negative (Negative); Blood,Urine Trace (Negative); Color,Urine Yellow; Glucose,Urine (UA) Negative (Negative); Ketones,Urine Trace (Negative); Leukocyte Esterase,Urine Negative (Negative); Mucus,Urine Rare /hpf; Nitrite,Urine Negative (Negative); PH, Urine 6.5 (5.0-8.0); Protein,Urine 1+ (Negative); RBC,Urine 12 /hpf (0-5); Squamous Epithelial Cell,Urine 2 /hpf (0-4); Urobilinogen,Urine <2.0 mg/dL (<2.0); WBC,Urine 1 /hpf (0-5)
[2023-01-07 09:10] LABS: Specific Gravity,Urine >1.050 (1.001-1.035)
[2023-01-07] MEDS: KETOROLAC 15 MG/ML 1 ML VIAL IVP PRN ×2 (13:17→20:06)
[2023-01-07 18:38] LABS: Glucose,Whole Blood 107 mg/dL (70-110)
[2023-01-07] MEDS: METOCLOPRAMIDE 5 MG/ML 2 ML VIAL IVP PRN (22:08)
[2023-01-07] MEDS: SODIUM CHLORIDE 0.9% 1,000 ML IV SCH (22:10)
[2023-01-08] MEDS: KETOROLAC 15 MG/ML 1 ML VIAL IVP PRN ×4 (01:55→20:24)
[2023-01-08] MEDS: ONDANSETRON 4 MG/2 ML VIAL IVP PRN ×2 (01:55→10:09)
[2023-01-08] MEDS ORDERED: DICYCLOMINE 10 MG/ML 2 ML AMP IM STA (03:10)
[2023-01-08] MEDS: METOCLOPRAMIDE 5 MG/ML 2 ML VIAL IVP PRN ×3 (04:04→19:29)
[2023-01-08] MEDS ORDERED: HYDROcodone/APAP 10-325MG 1 EACH TAB PO PRN (05:57)
[2023-01-08] MEDS: PANTOPRAZOLE 40 MG TABLET PO SCH ×2 (08:13→08:19)
[2023-01-08] MEDS ORDERED: LORATADINE 10 MG TAB PO PRN (09:00)
[2023-01-08] MEDS ORDERED: FLUoxetine HCL 10 MG CAP PO SCH (09:00)
[2023-01-08] MEDS: PANTOPRAZOLE 40 MG/10 ML VIAL IVP SCH ×2 (09:59→20:26)
[2023-01-08] MEDS ORDERED: LORazepam 2 MG/ML INJ IV STA (10:15)
[2023-01-08] MEDS ORDERED: ONDANSETRON 4 MG/2 ML VIAL IVP PRN (10:17)
[2023-01-08 11:05] LABS: African American GFR (CKD) 103.9 (60.0-200.0); Albumin/Globulin Ratio 1.85 (1.60-3.17); Anion Gap 16.2 mmol/L (10.00-18.00); BUN/Creat Ratio 21.75 Ratio (12.00-20.00); Blood Urea Nitrogen 17.4 mg/dL (9.0-27.0); Calcium 9.8 mg/dL (8.7-10.3); Carbon Dioxide 20.8 mmol/L (20.0-27.5); Globulin 2.7 g/dL (1.6-3.3); Magnesium 2.1 mg/dL (1.5-2.4); Non-African American GFR(CKD) 89.7 (60.0-200.0); Potassium 3.7 mmol/L (3.5-5.5); Total Bilirubin 0.4 mg/dL (0.30-1.20); Total Protein 7.7 g/dL (6.2-8.2)
[2023-01-08 11:07] LABS: Basophils # (A) 0.05 X 10*3/uL (0.00-0.10); Basophils % (A) 0.3 %; Eosinophils # (A) 0.01 X 10*3/uL (0.04-0.35); Eosinophils % (A) 0.1 %; HCT 40.6 % (37.2-46.3); HGB 13.8 g/dL (12.0-15.0); Immature Grans, Automated 0.6 %; Lymphocytes # (A) 2.21 X 10*3/uL (0.90-5.00); Lymphocytes % (A) 13.9 %; MCH 29.9 pg (27.0-32.0); MCV 87.9 fL (80.0-97.0); Mean Platelet Volume 12.4 fL (9.5-12.2); Monocytes # (A) 0.75 X 10*3/uL (0.20-1.00); Monocytes % (A) 4.7 %; NRBC Per 100 WBC 0 /100 WBCS (0.0-0.0); Neutrophils # (A) 12.75 X 10*3/uL (1.80-7.70); Neutrophils % (A) 80.4 %; Platelet Count 273 X 10*3/uL (140-440); RBC 4.62 X 10*6/uL (4.10-5.20); RDW 13.2 % (11.5-14.5); WBC 15.86 X 10*3/uL (4.50-10.00)
--- NOTE | 2023-01-08 11:21 | P.CONS ---
History of Present Illness - Reason for Consult Consult date: 01/08/23 IBS, nausea and vomiting Requesting physician: Chela Jaimes - Chief Complaint Intractable nausea and vomiting - History of Present Illness This is a 42-year-old female with a history of irritable bowel syndrome diagnosed in 2019, fibromyalgia, chronic back pain, and thyroid disorder. She follows with Dr. Allison in the office. She maintains on Bentyl 10 mg 3 times a d ay, Zofran and Reglan as needed, and Protonix daily. She presented to the emergency department with complaints of nausea and vomiting since yesterday. States she cannot hold down any liquids. States she is very anxious and when she gets anxious her symptoms often flare. States she recently lost her father and her grandmother is in hospice care right now. Patient was recently seen in August for similar symptoms. She had a CT of the abdomen and pelvis at that time with no acute findings. Patient also had a CT of the abdomen and pelvis yesterday, with no acute findings. States she has been vomiting up her water. She's been on clear liquids. She denies any hematemesis. Bowel movement was yesterday. Has diffuse abdominal pain. Last EGD colonoscopy was done by Dr. Rousseau on 02/17/2020. EGD revealed mild gastritis, colonoscopy revealed mild ileitis and small internal hemorrhoids. She states she received a liter of fluids in the ER she is feeling slightly better. She did try taking her dicyclomine and did vomit it back up. She denies any fevers or chills, no recent sick contacts. Admitting labs WBC 22.9 hemoglobin 14 hematocrit 41 platelet count 293,000 sodium 142 potassium 3.6 BUN 19 creatinine 0.6 glucose 154 lactic acid 2.2 magnesium 1.7 total bilirubin 0.6 AST 31 ALT 40 alkaline phosphatase 138 lipase 38 Today's labs WBC 15.8 hemoglobin 13.8 hematocrit 40 platelet count 273,000 sodium 138 potassium 3.7 BUN 17 creatinine 0.8 glucose 122 lactic acid 1 magnesium 2.1 total bilirubin 0.4 AST 19 ALT 35 alkaline phosphatase 112 Review of Systems REVIEW OF SYSTEMS: CARDIOPULMONARY: No chest pain or shortness of breath. Gastrointestinal: Diffuse abdominal pain/cramping. Nausea and vomiting 2 days. No hematemesis, coffee-ground emesis. No rectal bleeding, or melena. GENITOURINARY: No dysuria or hematuria. MUSCULOSKELETAL: Reports normal range of motion., Joint pain. SKIN: No rashes. No jaundice. ENDOCRINE: No chills, fevers. No excessive weight gain or loss. No polydipsia or polyuria. PSYCHIATRIC: Anxiety. Patient states she feels very anxious, also appears anxious. NEUROLOGY: No change in mental status. Denies dizziness, headache. ENT: Vision unremarkable. CONSTITUTIONAL: No recent weight loss. No fever, chills, night sweats. Past Medical History Past Medical History: Fibromyalgia, Thyroid Disorder Additional Past Medical History / Comment(s): DDD, bulging discs, neuropathy in legs, thyroid nodules, anemia, environmental allergies, constipation/diarrhea, IBS diagnosed in 2019, chronic gastritis. History of Any Multi-Drug Resistant Organisms: None Reported Past Surgical History: Hysterectomy, Orthopedic Surgery Additional Past Surgical History / Comment(s): Right wrist and forearm surgery, D&C, mass on vocal cords - surgery and biopsy. Past Anesthesia/Blood Transfusion Reactions: Postoperative Nausea & Vomiting (PONV) Additional Past Anesthesia/Blood Transfusion Reaction / Comm: Constipation post- op. Past Psychological History: Anxiety Smoking Status: Former smoker, Vaper Past Alcohol Use History: None Reported Past Drug Use History: Marijuana - Past Family History Mother Family Medical History: No Reported History Father Family Medical History: COPD Additional Family Medical History / Comment(s): "Cardiovascular swelling". Medications and Allergies Home Medications Medication Instructions Recorded Confirmed Type HYDROcodone/APAP 10-325MG [[place] 1 tab PO QID PRN 04/03/17 01/07/23 History 10-325] Loratadine [Claritin] 10 mg PO DAILY PRN 04/03/17 01/07/23 History Pantoprazole Sodium [Protonix] 40 mg PO BID 06/11/20 01/07/23 History Dicyclomine [Bentyl] 10 mg PO QID PRN 09/18/22 01/07/23 History Ergocalciferol (Vitamin D2) 1,250 mcg PO Q7DAYS 09/18/22 01/07/23 History [Drisdol (50,000 Iu)] Metoclopramide [Reglan] 5 mg PO AC-TID PRN 09/18/22 01/07/23 History FLUoxetine HCL [PROzac] 10 mg PO DAILY 11/23/22 01/07/23 History Dicyclomine [Bentyl] 20 mg PO TID #30 tablet 01/07/23 Rx Metoclopramide [Reglan] 10 mg PO TID PRN #15 tab 01/07/23 Rx Allergies Allergy/AdvReac Type Severity Reaction Status Date / Time propoxyphene Allergy Rash/Hives Verified 01/07/23 10:35 [From [facility]] Physical Exam Vitals: Vital Signs Temp Pulse Pulse Resp BP BP Pulse Ox 01/08/23 08:03 98.2 F 94 20 135/80 97 01/08/23 02:56 98.5 F 84 16 175/104 99 01/07/23 21:52 98.4 F 69 16 158/90 98 01/07/23 21:45 18 01/07/23 20:09 77 18 167/106 98 01/07/23 18:40 97.6 F 78 153/85 99 01/07/23 14:09 98.3 F 87 16 140/83 98 01/07/23 13:21 79 18 100 Intake and Output 01/07/23 01/08/23 01/08/23 22:59 06:59 14:59 Intake Total 1190 Output Total 120 Balance 1070 Intake: Intake, IV Titration 600 Amount Sodium Chloride 0.9% 1, 600 000 ml @ 75 mls/hr IV . [id number] [facility] Rx#:[id number] Oral 590 Output: Emesis 120 Other: # Voids 1 Weight 79.379 kg General appearance: The patient is alert, oriented, appears in no acute distress. HET: Head is normocephalic and atraumatic. Conjunctiva pink. Sclera anicteric. Neck: Supple without lymphadenopathy. Trachea midline. Heart: S1 S2. Regular rate and rhythm. Lungs: Clear to auscultation. Abdomen: Soft, diffuse tenderness with palpation, nondistended with bowel sounds. No guarding or rigidity. Skin: No rashes. No jaundice. Extremities: Normal skin color and turgor. No pedal edema. Neurological: No focal deficits. Alert and oriented x3. Results CBC & Chem 7: 01/08/23 06:27 01/08/23 06:27 Labs: Abnormal Lab Results - Last 24 Hours (Table) 01/08/23 Range/Units 06:27 BUN/Creatinine Ratio 21.75 H (12.00-20.00) Ratio Glucose 122 H (70-110) mg/dL Albumin 5.0 H (3.8-4.9) g/dL CT scan - abdomen: report reviewed (Normal abdomen and pelvis CT) Assessment and Plan (1) Vomiting Narrative/Plan: 42-year-old with a long-standing history of IBS admitted to the hospital for intractable nausea and vomiting and abdominal pain. Patient with leukocytosis with a WBC of 22.9. Afebrile. CT of abdomen and pelvis shows no acute findings. Patient states she's had increased anxiety and feels very anxious and shaky. She often has a flare of her IBS with anxiety. Taking Bentyl, Narcan, Zofran and Protonix at home. Abdomen is soft although she reports tenderness. No hematemesis or coffee-ground emesis. IBS likely exacerbated by increased stress and anxiety at home. Continue with antiemetics, will add Bentyl, and Z ofran [id number]. Continue PPI. Possible viral enteritis. Continue supportive measures. Will increase diet as tolerated. Current Visit: Yes Status: Acute Code(s): R11.10 - VOMITING, UNSPECIFIED SNOMED Code(s): 371762716 (2) Abdominal pain Current Visit: Yes Status: Acute Code(s): R10.9 - UNSPECIFIED ABDOMINAL PAIN SNOMED Code(s): 86487421 (3) History of IBS Current Visit: Yes Status: Acute Code(s): Z87.19 - PERSONAL HISTORY OF OTHER DISEASES OF THE DIGESTIVE SYSTEM SNOMED Code(s): 65943503643620 (4) Fibromyalgia Current Visit: No Status: Acute Code(s): M79.7 - FIBROMYALGIA SNOMED Code(s): 485906209 (5) Anxiety Current Visit: Yes Status: Acute Code(s): F41.9 - ANXIETY DISORDER, UNSPECIFIED SNOMED Code(s): 28331435 (6) Leukocytosis Current Visit: Yes Status: Acute Code(s): D72.829 - ELEVATED WHITE BLOOD CELL COUNT, UNSPECIFIED SNOMED Code(s): 903985576 Plan: 1. Continue symptomatic and supportive care 2. Continue IV fluids 3. Advance to low-fat diet as tolerated 4. Zofran and Bentyl [id number] 5. Continue Reglan as needed 6. Protonix 40 mg twice a day 7. Add scolomine patch 8. Continue medical management for anxiety 9.. Further recommendations forthcoming based on clinical course Thank you for this consultation, we'll continue to follow. Dr. Hermelinda Allison I agree with the dictator's note, documented as a scribe by Nohemi Newberry.
[2023-01-08] MEDS: SODIUM CHLORIDE 0.9% 1,000 ML IV SCH ×2 (11:45→22:37)
[2023-01-08] MEDS ORDERED: SCOPOLAMINE 1 MG/72 HR PATCH TRANSDERM SCH (14:00)
[2023-01-08] MEDS: DICYCLOMINE 10 MG CAP PO SCH ×2 (14:20→22:08)
--- NOTE | 2023-01-08 15:00 | P.HPIM ---
History of Present Illness H&P Date: 01/08/23 This is a 42-year-old female who presented to the emergency department with nausea and vomiting and unable to keep anything down and feels she is undergoing an IBS flareup. Patient reports she follows with Dr. Allison in the outpatient setting and has seen her most recently in October. Patient is maintained on Zofran as well as Reglan and was continued on clear liquid diet. Patient continues to report vomiting and unable to keep anything down and reports Ativan is the only thing that helps. Home medications verified and resumed and patient was given Bentyl. Patient follows with Dr. Alonso in the outpatient setting with a past medical history of, anemia, IBS, chronic gastritis, former smoker and does vape. On admission labs did reveal a WBC of 22.9 along with an elevated lactic acid of 2.2 and magnesium was 1.7, lipase was 38. Patient was started on IV hydration with no diet. Started on clear liquids although patient continues to have vomiting will consult GI and appreciate input and recommendations. CT abdomen was done in the ER showing no acute process and normal abdomen and pe lvis. Patient admitted for intractable nausea and vomiting. Review Of Systems: Constitutional: No fever, no chills, no night sweats. No weight change. No weakness, fatigue or lethargy. No daytime sleepiness. EENT: No headache. No blurred vision or double vision, no loss of vision. No loss of Hearing, no ringing in the ears, no dizziness. No nasal drainage or congestion. No epistaxis. No sore throat. Lungs: No shortness of breath, cough, no sputum production. No wheezing. Cardiovascular: No chest pain, no lower extremity edema. No palpitations. No paroxysmal nocturnal dyspnea. No orthopnea. No lightheadedness or dizziness. No syncopal episodes. Abdominal: No abdominal pain. No nausea, vomiting. No diarrhea. No constipation. No bloody or tarry stools.. No loss of appetite. Genitourinary: No dysuria, increased frequency, urgency. No urinary retention. Musculoskeletal: No myalgias. No muscle weakness, no gait dysfunction, no frequent falls. No back pain. No neck pain. Integumentary: No wounds, no lesions. No rash or pruritus. No unusual bruising. No change in hair or nails. Neurologic: No aphasia. No facial droop. No change in mentation. No head injury. No headache. No paralysis. No paresthesia. Psychiatric: No depression. No anxiety. No mood swings. Endocrine: No abnormal blood sugars. No weight change. No excessive sweating or thirst. No cold intolerance. PHYSICAL EXAMINATION: GENERAL: The patient is alert and oriented x4, Well developed, well nourished. HEENT: Pupils are round and equally reacting to light. EOMI. no scleral icterus. No conjunctival pallor. Normocephalic, atraumatic. No pharyngeal erythema. No thyromegaly. CARDIOVASCULAR: S1 and S2 muffled PULMONARY: diminished breath sounds bilaterally with no wheezing or rhonchi noted. ABDOMEN: soft. Nontender on exam. obese. non-distended, normoactive bowel sounds. No palpable organomegaly. MUSCULOSKELETAL: No joint swelling or deformity. EXTREMITIES: No cyanosis, clubbing, or pedal edema. NEUROLOGICAL: Gross neurological examination did not reveal any focal deficits. Diffuse weakness SKIN: No rashes. Assessment: Nausea, vomiting, abdominal pain, likely acute gastritis Leukocytosis with lactic acidosis, present on admission secondary to above, does not appear infectious, trending down History of IBS History of fibromyalgia Hypothyroidism Anxiety Continue THC use GI prophylaxis DVT prophylaxis Full code Plan: Recommend to continue with current medications and management and have consulted GI. Patient does follow with Dr. Allison in the outpatient setting with a past medical history of IBS. Patient continues to have nausea and vomiting and Reglan has been added and will continue along with Bentyl, GI adding scopolamine patch Patient has been requesting Ativan reporting it helps with her nerves and helps with the nausea and vomiting and did give 1 dose with no significant improvement Recommend Protonix IV twice daily Encouraged oral intake and slowly advance as tolerated to check diet Discussed at length about complete THC cessation Will continue with IV hydration and follow-up labs in the a.m. Possible discharge in 24 hours The impression and plan of care has been dictated by Chela Jaimes, nurse practitioner as directed. Dr. Kitty MD I have performed a history and examination and MDM of this patient, discussed the same with the dictator, and agree with the dictator's assessment and plan as written ,documented as a scribe. Based on total visit time, I have performed more than 50% of the visit. Any additional findings or plans will be noted. Past Medical History Past Medical History: Fibromyalgia, Thyroid Disorder Additional Past Medical History / Comment(s): DDD, bulging discs, neuropathy in legs, thyroid nodules, anemia, environmental allergies, constipation/diarrhea, IBS diagnosed in 2019, chronic gastritis. History of Any Multi-Drug Resistant Organisms: None Reported Past Surgical History: Hysterectomy, Orthopedic Surgery Additional Past Surgical History / Comment(s): Right wrist and forearm surgery, D&C, mass on vocal cords - surgery and biopsy. Past Anesthesia/Blood Transfusion Reactions: Postoperative Nausea & Vomiting (PONV) Additional Past Anesthesia/Blood Transfusion Reaction / Comment(s): Constipation post-op. Past Psychological History: Anxiety Smoking Status: Former smoker, Vaper Past Alcohol Use History: None Reported Past Drug Use History: Marijuana - Past Family History Mother Family Medical History: No Reported History Father Family Medical History: COPD Additional Family Medical History / Comment(s): "Cardiovascular swelling". Medications and Allergies Home Medications Medication Instructions Recorded Confirmed Type HYDROcodone/APAP 10-325MG [[place] 1 tab PO QID PRN 04/03/17 01/07/23 History 10-325] Loratadine [Claritin] 10 mg PO DAILY PRN 04/03/17 01/07/23 History Pantoprazole Sodium [Protonix] 40 mg PO BID 06/11/20 01/07/23 History Dicyclomine [Bentyl] 10 mg PO QID PRN 09/18/22 01/07/23 History Ergocalciferol (Vitamin D2) 1,250 mcg PO Q7DAYS 09/18/22 01/07/23 History [Drisdol (50,000 Iu)] Metoclopramide [Reglan] 5 mg PO AC-TID PRN 09/18/22 01/07/23 History FLUoxetine HCL [PROzac] 10 mg PO DAILY 11/23/22 01/07/23 History Dicyclomine [Bentyl] 20 mg PO TID #30 tablet 01/07/23 Rx Metoclopramide [Reglan] 10 mg PO TID PRN #15 tab 01/07/23 Rx Allergies Allergy/AdvReac Type Severity Reaction Status Date / Time propoxyphene Allergy Rash/Hives Verified 01/07/23 10:35 [From Martha-Sumit] Physical Exam Vitals: Vital Signs Temp Pulse Pulse Resp BP BP Pulse Ox 01/08/23 08:03 98.2 F 94 20 135/80 97 01/08/23 02:56 98.5 F 84 16 175/104 99 01/07/23 21:52 98.4 F 69 16 158/90 98 01/07/23 21:45 18 01/07/23 20:09 77 18 167/106 98 01/07/23 18:40 97.6 F 78 153/85 99 01/07/23 14:09 98.3 F 87 16 140/83 98 01/07/23 13:21 79 18 100 Intake and Output 01/07/23 01/08/23 01/08/23 22:59 06:59 14:59 Intake Total 1190 Output Total 120 Balance 1070 Intake: Intake, IV Titration 600 Amount Sodium Chloride 0.9% 1, 600 000 ml @ 75 mls/hr IV . [id number] C[facility]STEL Rx#:[id number] Oral 590 Output: Emesis 120 Other: # Voids 1 Weight 79.379 kg Results CBC & Chem 7: 01/08/23 06:27 01/08/23 06:27 Thrombosis Risk Factor Assmnt - DVT/VTE Prophylaxis DVT/VTE Prophylaxis: Mechanical Prophylaxis ordered - Choose All That Apply Any of the Below Risk Factors Present?: Yes Each Factor Represents 1 point: Age 41-60 years, Obesity (BMI >25) Other Risk Factors: No Other congenital or acquired thrombophilia - If yes, enter type in comment: No Thrombosis Risk Factor Assessment Total Risk Factor Score: 2 Thrombosis Risk Factor Assessment Level: Low Risk Assessment and Plan Time with Patient: Greater than 30
[2023-01-08] MEDS: ONDANSETRON 4 MG/2 ML VIAL IVP SCH ×2 (15:53→22:08)
[2023-01-09] MEDS: METOCLOPRAMIDE 5 MG/ML 2 ML VIAL IVP PRN ×2 (01:37→07:42)
[2023-01-09] MEDS: KETOROLAC 15 MG/ML 1 ML VIAL IVP PRN (02:20)
[2023-01-09] MEDS: ONDANSETRON 4 MG/2 ML VIAL IVP SCH ×2 (04:10→10:07)
[2023-01-09] MEDS: PANTOPRAZOLE 40 MG/10 ML VIAL IVP SCH (07:42)
[2023-01-09 07:44] VITALS: BP 154/100; PULSE 62; RESP 20; TEMP 97.9
[2023-01-09] MEDS ORDERED: ERGOCALCIFEROL 1,250 MCG (50,000 IU) CAPSULE PO SCH (09:00)
--- NOTE | 2023-01-09 12:13 | P.PN ---
Subjective Progress Note Date: 01/09/23 (Patient seen around 0 900) Principal diagnosis: Nausea and vomiting, IBS This is a 42-year-old female with a history of irritable bowel syndrome diagnosed in 2019, fibromyalgia, chronic back pain, and thyroid disorder. She follows with Dr. Allison in the office. She maintains on Bentyl 10 mg 3 times a day, Zofran and Reglan as needed, and Protonix daily. She presented to the emergency department with complaints of nausea and vomiting since yesterday. States she cannot hold down any liquids. States she is very anxious and when she gets anxious her symptoms often flare. States she recently lost her father and her grandmother is in hospice care right now. Patient was recently seen in August for similar symptoms. She had a CT of the abdomen and pelvis at that time with no acute findings. Patient also had a CT of the abdomen and pelvis yesterday, with no acute findings. States she has been vomiting up her water. She's been on clear liquids. She denies any hematemesis. Bowel movement was yesterday. Has diffuse abdominal pain. Last EGD colonoscopy was done by Dr. Rousseau on 02/17/2020. EGD revealed mild gastritis, colonoscopy revealed mild ileitis and small internal hemorrhoids. She states she received a liter of fluids in the ER she is feeling slightly better. She did try taking her dicyclomine and did vomit it back up. She denies any fevers or chills, no recent sick contacts. Admitting labs WBC 22.9 hemoglobin 14 hematocrit 41 platelet count 293,000 sodium 142 potassium 3.6 BUN 19 creatinine 0.6 glucose 154 lactic acid 2.2 magnesium 1.7 total bilirubin 0.6 AST 31 ALT 40 alkaline phosphatase 138 lipase 38 01/09/2023: Patient seen and examined this morning. Patient was resting comfortably. Scopolamine patch was ordered yesterday and nausea and vomiting improved. Nursing reports no vomiting throughout the night. Patient tolerating her low-fat diet. Denies any abdominal pain. She's been afebrile. And requesting to be discharged. Objective - Vital Signs Vital signs: Vital Signs Temp 97.9 F 01/09/23 07:44 Pulse 62 01/09/23 07:44 Resp 20 01/09/23 07:44 BP 154/100 01/09/23 07:44 Pulse Ox 99 01/09/23 07:44 FiO2 Intake & Output 01/08/23 01/09/23 01/09/23 18:59 06:59 18:59 Intake Total 900 1380 Balance 900 1380 Intake: Intake, IV Titration 900 900 Amount Sodium Chloride 0.9% 1, 900 900 000 ml @ 75 mls/hr IV . [id number] [facility] Rx#:[id number] Oral 480 Other: # Voids 2 2 - Exam General appearance: The patient is alert, oriented, appears in no acute distress. HET: Head is normocephalic and atraumatic. Conjunctiva pink. Sclera anicteric. Neck: Supple without lymphadenopathy. Abdomen: Soft, mild diffuse tenderness, nondistended with bowel sounds. No guarding or rigidity. Extremities: Normal skin color and turgor. No pedal edema Skin: No rashes, no jaundice Neurological: No focal deficits. Alert and oriented. - Labs CBC & Chem 7: 01/08/23 06:27 01/08/23 06:27 Labs: Abnormal Lab Results - Last 24 Hours (Table) 01/08/23 01/08/23 Range/Units 06:27 06:27 WBC 15.86 H (4.50-10.00) X 10*3/uL MPV 12.4 H (9.5-12.2) fL Immature Gran # 0.09 H (0.00-0.04) X 10*3/uL Neutrophils # 12.75 H (1.80-7.70) X 10*3/uL Eosinophils # 0.01 L (0.04-0.35) X 10*3/uL BUN/Creatinine Ratio 21.75 H (12.00-20.00) Ratio Glucose 122 H (70-110) mg/dL Albumin 5.0 H (3.8-4.9) g/dL Assessment and Plan (1) Vomiting Narrative/Plan: 42-year-old with a long-standing history of IBS admitted to the hospital for intractable nausea and vomiting and abdominal pain. Patient with leukocytosis with a WBC of 22.9. Afebrile. CT of abdomen and pelvis shows no acute find ings. Patient states she's had increased anxiety and feels very anxious and shaky. She often has a flare of her IBS with anxiety. Taking Bentyl, Narcan, Zofran and Protonix at home. Abdomen is soft although she reports tenderness. No hematemesis or coffee-ground emesis. IBS likely exacerbated by increased stress and anxiety at home. Continue with antiemetics, will add Bentyl, and Zofran [id number]. Continue PPI. Possible viral enteritis. Continue supportive measures. Will increase diet as tolerated. Status: Acute Code(s): R11.10 - VOMITING, UNSPECIFIED SNOMED Code(s): 230194174 (2) Abdominal pain Status: Acute Code(s): R10.9 - UNSPECIFIED ABDOMINAL PAIN SNOMED Code(s): 33496361 (3) History of IBS Status: Acute Code(s): Z87.19 - PERSONAL HISTORY OF OTHER DISEASES OF THE DIGESTIVE SYSTEM SNOMED Code(s): 02705524039823 (4) Fibromyalgia Status: Acute Code(s): M79.7 - FIBROMYALGIA SNOMED Code(s): 476196367 (5) Anxiety Status: Acute Code(s): F41.9 - ANXIETY DISORDER, UNSPECIFIED SNOMED Code(s): 84922143 (6) Leukocytosis Status: Acute Code(s): D72.829 - ELEVATED WHITE BLOOD CELL COUNT, UNSPECIFIED SNOMED Code(s): 262406023 Plan: 1. Continue symptomatic and supportive care 2. Continue low-fat diet as tolerated 3. Zofran and Bentyl [id number] 4. Continue Reglan as needed 5. Protonix 40 mg twice a day 6. Continue scopolamine patch Thank you for this consultation, the patient is cleared from gastroenterology for discharge. She can follow-up in the next 2-[address] Hermelinda Allison I agree with the dictator's note, documented as a scribe by Nohemi Newberry.
[2023-01-09 14:15] LABS: Basophils # (A) 0.05 X 10*3/uL (0.00-0.10); Basophils % (A) 0.4 %; Eosinophils # (A) 0 X 10*3/uL (0.04-0.35); Eosinophils % (A) 0 %; HCT 38.2 % (37.2-46.3); HGB 12.8 g/dL (12.0-15.0); Immature Grans, Automated 0.5 %; Lymphocytes # (A) 2.74 X 10*3/uL (0.90-5.00); Lymphocytes % (A) 23.1 %; MCH 29.6 pg (27.0-32.0); MCHC 33.5 g/dL (32.0-37.0); MCV 88.2 fL (80.0-97.0); Mean Platelet Volume 12.6 fL (9.5-12.2); Monocytes # (A) 0.65 X 10*3/uL (0.20-1.00); Monocytes % (A) 5.5 %; NRBC Per 100 WBC 0 /100 WBCS (0.0-0.0); Neutrophils # (A) 8.36 X 10*3/uL (1.80-7.70); Neutrophils % (A) 70.5 %; Platelet Count 249 X 10*3/uL (140-440); RBC 4.33 X 10*6/uL (4.10-5.20); RDW 13.2 % (11.5-14.5); WBC 11.86 X 10*3/uL (4.50-10.00)
[2023-01-09 14:20] LABS: African American GFR (CKD) 90.1 (60.0-200.0); Anion Gap 17.2 mmol/L (10.00-18.00); Blood Urea Nitrogen 19.8 mg/dL (9.0-27.0); Calcium 9.5 mg/dL (8.7-10.3); Carbon Dioxide 18.8 mmol/L (20.0-27.5); Non-African American GFR(CKD) 77.8 (60.0-200.0); Potassium 3.5 mmol/L (3.5-5.5)
--- NOTE | 2023-01-10 01:34 | P.DS ---
Providers Date of admission: 01/07/23 13:28 Expected date of discharge: 01/09/23 Attending physician: Eric Walker MD Consults: 01/08/23 10:16 Consult Physician Urgent Consulting Provider: Devika Allison Consult Reason/Comments: IBS, N/V Do you want consulting provider notified?: Yes Primary care physician: Gavin Sawyer Hospital Course: Final diagnosis Nausea, vomiting, abdominal pain, likely acute gastritis Leukocytosis with lactic acidosis, present on admission secondary to above, does not appear infectious, trending down History of IBS History of fibromyalgia Hypothyroidism Anxiety Continue THC use GI prophylaxis DVT prophylaxis Full code Discharge disposition Patient is being discharged in a stable condition with guarded prognosis to home. Patient will follow-up with Dr. Alonso in the outpatient setting upon discharge. Patient reports she is currently looking for another provider in the outpatient setting. Patient also to follow-up with GI in the outpatient setting at your next scheduled appointment. Total time taken is greater than 35 minutes. Hospital course This is a 42-year-old female who was recently admitted with nausea and vomiting and abdominal pain. Patient evaluated by GI and did have improvement in adjustment with medications including Bentyl and Reglan as needed Zofran and vomiting has improved. Oral intake is fair and recommending continuing to slowly advance as tolerated. Patient tolerating chopped diet and will follow-up in the outpatient setting. Discussed complete cessation of THC use. Patient has been cleared by consultations for discharge. Please refer to other consultation notes for further HPI. Currently no reports of chest pain, shortness of breath, or palpitations. Patient is afebrile. No reports of na usea or vomiting and patient is tolerating diet. Patient will be discharged home today. Physical exam: Gen: This is a 42-year-old female who is awake, alert and oriented 3, well- developed, well-nourished HEENT: Head is atraumatic, normocephalic. Pupils equal, round. Sclerae is anicteric. NECK: Supple. No JVD. No lymphadenopathy. No thyromegaly. LUNGS: Clear to auscultation. No wheezes or rhonchi. No intercostal retractions. HEART: Regular rate and rhythm. No murmur. ABDOMEN: Soft. Bowel sounds are present. No masses. No tenderness. EXTREMITIES: No pedal edema. No calf tenderness. NEUROLOGICAL: Patient is awake, alert and oriented x3. Cranial nerves 2 through 12 are grossly intact. Please refer to medication reconciliation sheet for a list of medications. The impression and plan of care has been dictated by Chela Jaimes, Nurse Practitioner as directed. Dr. Kitty MD I have performed a history and examination and MDM of this patient, discussed the same with the dictator, and agree with the dictator's assessment and plan as written ,documented as a scribe. Based on total visit time, I have performed more than 50% of the visit. Patient Condition at Discharge: Good Plan - Discharge Summary New Discharge Prescriptions: New Dicyclomine [Bentyl] 20 mg PO TID #30 tablet Metoclopramide [Reglan] 10 mg PO TID PRN #15 tab PRN Reason: Nausea Continue Loratadine [Claritin] 10 mg PO DAILY PRN PRN Reason: Allergy Symptoms HYDROcodone/APAP 10-325MG [[place]ellrose 10-325] 1 tab PO QID PRN PRN Reason: Pain Pantoprazole Sodium [Protonix] 40 mg PO BID Ergocalciferol (Vitamin D2) [Drisdol (50,000 Iu)] 1,250 mcg PO Q7DAYS FLUoxetine HCL [PROzac] 10 mg PO DAILY Discontinued Metoclopramide [Reglan] 5 mg PO AC-TID PRN PRN Reason: Nausea And Vomiting Dicyclomine [Bentyl] 10 mg PO QID PRN PRN Reason: Gi Upset Discharge Medication List HYDROcodone/APAP 10-325MG [Dellrose 10-325] 1 tab PO QID PRN 04/03/17 [History] Loratadine [Claritin] 10 mg PO DAILY PRN 04/03/17 [History] Pantoprazole Sodium [Protonix] 40 mg PO BID 06/11/20 [History] Ergocalciferol (Vitamin D2) [Drisdol (50,000 Iu)] 1,250 mcg PO Q7DAYS 09/18/22 [History] FLUoxetine HCL [PROzac] 10 mg PO DAILY 11/23/22 [History] Dicyclomine [Bentyl] 20 mg PO TID #30 tablet 01/07/23 [Rx] Metoclopramide [Reglan] 10 mg PO TID PRN #15 tab 05/14/23 [Rx] Follow up Appointment(s)/Referral(s): Devika Allison MD [STAFF PHYSICIAN] - 01/18/23 11:00 am (You will see Stella White.) Harmony Nicholas MD [STAFF PHYSICIAN] - 1 Week None,Stated [REFERRING] - 1-2 days Patient Instructions/Handouts: Metoclopramide (By mouth), Dicyclomine (By mouth), Irritable Bowel Syndrome (ED), Anxiety (GEN) Activity/Diet/Wound Care/Special Instructions: Take medication as directed. Increase fluid intake. Please follow-up with your primary care provider in 1-2 days. Return to the emergency department if you experience new, concerning, or worsening symptoms. Discharge Disposition: HOME SELF-CARE
== END 2023-01-09 10:34 | disposition home or self-care (01) ==
LOC: EC 20:51 → 6NMEDSUR 01-07 13:28 → 5NMEDONC 01-07 19:44
PROVIDERS: ADMIT Internal Medicine; ATTEND Internal Medicine
DX: R10.9 Unspecified abdominal pain (principal); R11.2 Nausea with vomiting, unspecified; D72.829 Elevated white blood cell count, unspecified; E87.20 Acidosis, unspecified; Z87.19 Personal history of other diseases of the digestive system; M79.7 Fibromyalgia; E03.9 Hypothyroidism, unspecified; F41.9 Anxiety disorder, unspecified; Z79.899 Other long term (current) drug therapy; Z88.5 Allergy status to narcotic agent; E07.9 Disorder of thyroid, unspecified; D64.9 Anemia, unspecified; K29.50 Unspecified chronic gastritis without bleeding; Z90.710 Acquired absence of both cervix and uterus; Z98.0 Intestinal bypass and anastomosis status; Z87.891 Personal history of nicotine dependence; Z83.6 Family history of other diseases of the respiratory system; Z82.49 Family history of ischemic heart disease and other diseases of the circulatory system
CPT/HCPCS: 96376 ×4; 96361 ×3; 96372 ×2; 96375 ×2; 96374; 99285; 36415; 80053 ×2; 80048; 83605; 83690; 83735 ×2; 85025 ×3; 81001; 74177; G0378 ×4; J2060; J0500 ×2; J0780; J2765 ×3; J2405 ×3; J1885 ×3; C9113 ×2; Q9967

== ENCOUNTER 2023-07-07 17:46 | Inpatient (IN) | payer MEDICARE, OTHER ==
[2023-07-07] MEDS ORDERED: SODIUM CHLORIDE 0.9% 1,000 ML IV STA (18:00)
[2023-07-07] MEDS ORDERED: METOCLOPRAMIDE 5 MG/ML 2 ML VIAL IVP STA (18:00)
--- NOTE | 2023-07-07 18:23 | ED ---
Nausea/Vomiting/Diarrhea HPI - General Chief complaint: Nausea/Vomiting/Diarrhea Stated complaint: ibs flare up Time Seen by Provider: 07/07/23 17:57 Source: patient, RN notes reviewed Mode of arrival: wheelchair Limitations: no limitations - History of Present Illness Initial comments: Patient is a 42-year-old female presented ER with chief complaint of nausea vomiting. Patient has a past medical history significant for IBS for which she sees Dr. Allison. She states she has been vomiting for the past 24 hours uncontrollably. She endorses associated generalized abdominal pain she thinks from vomiting. She described her vomit as brown in color and denies any blood. She states she has not been in to keep anything down including water and she just vomits it back up. Patient denies any fevers, chills, chest pain, shortness of breath, urinary symptoms. - Related Data Home Medications Medication Instructions Recorded Confirmed HYDROcodone/APAP 10-325MG [Potter 1 tab PO QID PRN 04/03/17 01/07/23 10-325] Loratadine [Claritin] 10 mg PO DAILY PRN 04/03/17 01/07/23 Pantoprazole Sodium [Protonix] 40 mg PO BID 06/11/20 01/07/23 Ergocalciferol (Vitamin D2) 1,250 mcg PO Q7DAYS 09/18/22 01/07/23 [Drisdol (50,000 Iu)] FLUoxetine HCL [PROzac] 10 mg PO DAILY 11/23/22 01/07/23 Previous Rx's Medication Instructions Recorded Dicyclomine [Bentyl] 20 mg PO TID #30 tablet 01/07/23 Metoclopramide [Reglan] 10 mg PO TID PRN #15 tab 01/07/23 Allergies Allergy/AdvReac Type Severity Reaction Status Date / Time propoxyphene Allergy Rash/Hives Verified 07/07/23 17:47 [From Sissy] Review of Systems ROS Statement: Those systems with pertinent positive or pertinent negative responses have been documented in the HPI. ROS Other: All systems not noted in ROS Statement are negative. Past Medical History Past Medical History: Fibromyalgia, Thyroid Disorder Additional Past Medical History / Comment(s): DDD, bulging discs, neuropathy in legs, thyroid nodules, anemia, environmental allergies, constipation/diarrhea, IBS diagnosed in 2020, chronic gastritis. History of Any Multi-Drug Resistant Organisms: None Reported Past Surgical History: Hysterectomy, Orthopedic Surgery Additional Past Surgical History / Comment(s): Right wrist and forearm surgery, D&C, mass on vocal cords - surgery and biopsy. Past Anesthesia/Blood Transfusion Reactions: Postoperative Nausea & Vomiting (PONV) Additional Past Anesthesia/Blood Transfusion Reaction / Comment(s): Constipation post-op. Past Psychological History: Anxiety Smoking Status: Former smoker, Vaper Past Alcohol Use History: None Reported Past Drug Use History: Marijuana - Past Family History Mother Family Medical History: No Reported History Father Family Medical History: COPD Additional Family Medical History / Comment(s): "Cardiovascular swelling". General Exam Limitations: no limitations General appearance: alert, anxious Respiratory exam: Present: normal lung sounds bilaterally. Absent: respiratory distress, wheezes, rales, rhonchi, stridor Cardiovascular Exam: Present: regular rate, normal rhythm, normal heart sounds. Absent: systolic murmur, diastolic murmur, rubs, gallop, clicks GI/Abdominal exam: Present: soft, tenderness (Generalized), normal bowel sounds Neurological exam: Present: alert, oriented X3, CN II-XII intact Skin exam: Present: normal color, diaphoretic Course Vital Signs 07/07/23 07/07/23 17:47 21:15 Temperature 98.4 F Pulse Rate 140 H 106 H Respiratory 18 18 Rate Blood Pressure 146/98 113/78 O2 Sat by Pulse 96 97 Oximetry Medical Decision Making - Medical Decision Making Was pt. sent in by a medical professional or institution (, PA, [employer] WORKER, urgent care, hospital, or jail...) When possible be specific @ -No Did you speak to anyone other than the patient for history (EMS, parent, family, police, friend...)? What history was obtained from this source @ -No Did you review nursing and triage notes (agree or disagree)? Why? @ -I reviewed and agree with nursing and triage notes Were old charts reviewed (outside hosp., previous admission, EMS record, old EKG, old radiological studies, urgent care reports/EKG's, jail records)? Report findings @ -No old charts were reviewed Differential Diagnosis (chest pain, altered mental status, abdominal pain women, abdominal pain men, vaginal bleeding, weakness, fever, dyspnea, syncope, headache, dizziness, GI bleed, back pain, seizure, CVA, palpatations, mental health, musculoskeletal)? @ -Differential Abdominal Pain Women: Appendicitis, Cholecystitis, diverticulosis, ischemic bowel, pancreatitis, hepatitis, UTI, gastroenteritis, AAA, incarcerated hernia, bowel obstruction, constipation, inflammatory bowel, hepatitis, peptic ulcer disease, splenic infarction, perforated viscus, vulvitis, ovarian torsion, PID, kidney stone, placenta abruption, this is not meant to be an all-inclusive listable EKG interpreted by me (3pts min.). @ -No X-rays interpreted by me (1pt min.). @ -None done CT interpreted by me (1pt min.). @ -Computed tomography scan shows thickened appearance of the distal esophageal wall. U/S interpreted by me (1pt. min.). @ -None done What testing was considered but not performed or refused? (CT, X-rays, U/S, l abs)? Why? @ -None What meds were considered but not given or refused? Why? @ -None Did you discuss the management of the patient with other professionals (professionals i.e. , PA, [employer] WORKER, lab, RT, psych nurse, social work supervisor, sanitation truck driver, teacher, court registry officer, special education case manager)? Give summary @ -Yes, I discussed this case with Dr. Smith. Was smoking cessation discussed for >3mins.? @ -No Was critical care preformed (if so, how long)? @ -No Were there social determinants of health that impacted care today? How? ( Homelessness, low income, unemployed, alcoholism, drug addiction, transportation, low edu. Level, literacy, decrease access to med. care, senior care, rehab)? @ -No Was there de-escalation of care discussed even if they declined (Discuss DNR or withdrawal of care, Hospice)? DNR status @ -No What co-morbidities impacted this encounter? (DM, HTN, Smoking, COPD, CAD, Cancer, CVA, ARF, Chemo, Hep., AIDS, mental health diagnosis, sleep apnea, morbid obesity)? @ -IBS Was patient admitted / discharged? Hospital course, mention meds given and route, prescriptions, significant lab abnormalities, going to OR and other pertinent info. @ -Admitted. Labs were significant for a white blood cell count of 26.4 and mild transaminitis. UA was negative. Computed tomography scan of abdomen and pelvis showed no acute abnormality. Ct abdomen pelvis showed thickened appearance of the distal esophageal wall. Patient received IV fluids, Reglan, Zofran and was still having irretractable vomiting upon reevaluation. Patient will be admitted for observation and IV medications. Patient expressed understanding and agreement with care plan. Undiagnosed new problem with uncertain prognosis? @ -No Drug Therapy requiring intensive monitoring for toxicity (Heparin, Nitro, Insulin, Cardizem)? @ -No Were any procedures done? @ -No Diagnosis/symptom? @ -Intractable vomiting Acute, or Chronic, or Acute on Chronic? @ -Acute on chronic Uncomplicated (without systemic symptoms) or Complicated (systemic symptoms)? @ -Complicated Side effects of treatment? @ -No Exacerbation, Progression, or Severe Exacerbation? @ -Exacerbation Poses a threat to life or bodily function? How? (Chest pain, USA, IA, pneumonia, PE, COPD, DKA, ARF, appy, cholecystitis, CVA, Diverticulitis, Homicidal, Suicidal, threat to staff... and all critical care pts) @ -No - Lab Data Result diagrams: 07/07/23 18:35 07/07/23 18:35 Lab Results 07/07/23 07/07/23 07/07/23 Range/Units 18:35 18:35 18:35 WBC 26.4 H (3.8-10.6) k/uL RBC 5.02 (3.80-5.40) m/uL Hgb 15.4 (11.4-16.0) gm/dL Hct 42.7 (34.0-46.0) % MCV 85.1 (80.0-100.0) fL MCH 30.7 (25.0-35.0) pg MCHC 36.1 (31.0-37.0) g/dL RDW 13.0 (11.5-15.5) % Plt Count 366 (150-450) k/uL MPV 9.0 Neutrophils % 85 % Lymphocytes % 9 % Monocytes % 4 % Eosinophils % 1 % Basophils % 0 % Neutrophils # 22.5 H (1.3-7.7) k/uL Lymphocytes # 2.4 (1.0-4.8) k/uL Monocytes # 1.0 (0-1.0) k/uL Eosinophils # 0.2 (0-0.7) k/uL Basophils # 0.1 (0-0.2) k/uL Sodium 139 (137-145) mmol/L Potassium 3.7 (3.5-5.1) mmol/L Chloride 95 L (98-107) mmol/L Carbon Dioxide 24 (22-30) mmol/L Anion Gap 20 mmol/L BUN 31 H (7-17) mg/dL Creatinine 1.12 H (0.52-1.04) mg/dL Est GFR (CKD-EPI)AfAm 69 (>60 ml/min/1.73 sqM) Est GFR (CKD-EPI)NonAf 60 (>60 ml/min/1.73 sqM) Glucose 129 H (74-99) mg/dL Plasma Lactic Acid Zaid 2.0 (0.7-2.0) mmol/L Calcium 10.8 H (8.4-10.2) mg/dL Total Bilirubin 1.0 (0.2-1.3) mg/dL AST 78 H (14-36) U/L ALT 109 H (4-34) U/L Alkaline Phosphatase 136 H (38-126) U/L Total Protein 9.5 H (6.3-8.2) g/dL Albumin 5.5 H (3.5-5.0) g/dL Amylase 88 (30-110) U/L Lipase 55 (23-300) U/L Urine Color Urine Appearance (Clear) Urine pH (5.0-8.0) Ur Specific [place] (1.001-1.035) Urine Protein (Negative) Urine Glucose (UA) (Negative) Urine Ketones (Negative) Urine Blood (Negative) Urine Nitrite (Negative) Urine Bilirubin (Negative) Urine Urobilinogen (<2.0) mg/dL Ur Leukocyte Esterase (Negative) Urine RBC (0-5) /hpf Ur Squamous Epith Cells (0-4) /hpf 07/07/23 Range/Units 21:15 WBC (3.8-10.6) k/uL RBC (3.80-5.40) m/uL Hgb (11.4-16.0) gm/dL Hct (34.0-46.0) % MCV (80.0-100.0) fL MCH (25.0-35.0) pg MCHC (31.0-37.0) g/dL RDW (11.5-15.5) % Plt Count (150-450) k/uL MPV Neutrophils % % Lymphocytes % % Monocytes % % Eosinophils % % Basophils % % Neutrophils # (1.3-7.7) k/uL Lymphocytes # (1.0-4.8) k/uL Monocytes # (0-1.0) k/uL Eosinophils # (0-0.7) k/uL Basophils # (0-0.2) k/uL Sodium (137-145) mmol/L Potassium (3.5-5.1) mmol/L Chloride (98-107) mmol/L Carbon Dioxide (22-30) mmol/L Anion Gap mmol/L BUN (7-17) mg/dL Creatinine (0.52-1.04) mg/dL Est GFR (CKD-EPI)AfAm (>60 ml/min/1.73 sqM) Est GFR (CKD-EPI)NonAf (>60 ml/min/1.73 sqM) Glucose (74-99) mg/dL Plasma Lactic Acid Zaid (0.7-2.0) mmol/L Calcium (8.4-10.2) mg/dL Total Bilirubin (0.2-1.3) mg/dL AST (14-36) U/L ALT (4-34) U/L Alkaline Phosphatase (38-126) U/L Total Protein (6.3-8.2) g/dL Albumin (3.5-5.0) g/dL Amylase (30-110) U/L Lipase (23-300) U/L Urine Color Light Yellow Urine Appearance Clear (Clear) Urine pH 6.5 (5.0-8.0) Ur Specific [place] >1.050 H (1.001-1.035) Urine Protein 1+ H (Negative) Urine Glucose (UA) Negative (Negative) Urine Ketones 2+ H (Negative) Urine Blood Small H (Negative) Urine Nitrite Negative (Negative) Urine Bilirubin Negative (Negative) Urine Urobilinogen <2.0 (<2.0) mg/dL Ur Leukocyte Esterase Negative (Negative) Urine RBC 2 (0-5) /hpf Ur Squamous Epith Cells 1 (0-4) /hpf - Radiology Data Radiology results: report reviewed, image reviewed Disposition Clinical Impression: Intractable vomiting with nausea Disposition: ADMITTED IP TO THIS HOSP Condition: Stable Referrals: Digna Alonso MD [Primary Care Provider] - 1-2 days Time of Disposition: 23:06
[2023-07-07 19:12] LABS: Basophils # (A) 0.1 k/uL (0-0.2); Basophils % (A) 0 %; Eosinophils # (A) 0.2 k/uL (0-0.7); Eosinophils % (A) 1 %; HCT 42.7 % (34.0-46.0); HGB 15.4 gm/dL (11.4-16.0); Lymphocytes # (A) 2.4 k/uL (1.0-4.8); Lymphocytes % (A) 9 %; MCH 30.7 pg (25.0-35.0); MCHC 36.1 g/dL (31.0-37.0); MCV 85.1 fL (80.0-100.0); Monocytes % (A) 4 %; Neutrophils # (A) 22.5 k/uL (1.3-7.7); Neutrophils % (A) 85 %; Platelet Count 366 k/uL (150-450); RBC 5.02 m/uL (3.80-5.40); WBC 26.4 k/uL (3.8-10.6)
[2023-07-07 19:29] LABS: ALT 109 U/L (4-34); AST 78 U/L (14-36); African American GFR (CKD) 69 (>60 ml/min/1.73 sqM); Albumin 5.5 g/dL (3.5-5.0); Alkaline Phosphatase 136 U/L (38-126); Amylase 88 U/L (30-110); Anion Gap 20 mmol/L; Blood Urea Nitrogen 31 mg/dL (7-17); Calcium 10.8 mg/dL (8.4-10.2); Carbon Dioxide 24 mmol/L (22-30); Chloride 95 mmol/L (98-107); Glucose 129 mg/dL (74-99); Lipase 55 U/L (23-300); Non-African American GFR(CKD) 60 (>60 ml/min/1.73 sqM); Potassium 3.7 mmol/L (3.5-5.1); Sodium 139 mmol/L (137-145); Total Protein 9.5 g/dL (6.3-8.2)
--- NOTE | 2023-07-07 20:53 | CT ---
EXAMINATION TYPE: CT abdomen pelvis w con CT DLP: 832.6 mGycm, Automated exposure control for dose reduction was used. DATE OF EXAM: 07/07/2023 7:07 PM COMPARISON: CT abdomen pelvis 01/07/2023 and before CLINICAL INDICATION:Female, 42 years old with history of pain; abd pain TECHNIQUE: Axial CT of the abdomen and pelvis. Sagittal and coronal reformats were created on a [employer] workstation. Contrast used:80 mL of Isovue 300 with IV Contrast, (none if empty) Oral contrast used: without Oral Contrast (none if empty) FINDINGS: LOWER CHEST: Lung bases are clear. Mild/moderate circumferential thickening of the distal esophageal wall. ABDOMEN LIVER: There is probably at least mild hepatic steatosis. Small focus of low-attenuation in the anter ior liver along the fissure for ligamentum teres, most consistent with focal fat. Otherwise unremark able liver. GALLBLADDER AND BILE DUCTS: Unremarkable. PANCREAS: Unremarkable. SPLEEN: No acute abnormality. Tiny hypodensity in the anterior spleen, may be cyst or hemangioma. ADRENAL GLANDS: Unremarkable. KIDNEYS AND URETERS: No evidence of hydronephrosis or renal calculus. The ureters are unremarkable. PELVIS BLADDER: Incompletely distended but grossly unremarkable. REPRODUCTIVE: Post hysterectomy. ABDOMEN & PELVIS STOMACH AND BOWEL: Stomach and small bowel are nondistended, no evidence of obstruction. Unremarkable appendix. Some stool throughout the colon without focal inflammatory process seen. PERITONEUM/RETROPERITONEUM: No evidence of pneumoperitoneum or free fluid. VASCULATURE: No evidence of aortic aneurysm. MUSCULOSKELETAL: No acute osseous abnormalities LYMPH NODES: No gross evidence for lymphadenopathy. SOFT TISSUE/ABDOMINAL WALL: No acute abnormality. Small fat-containing umbilical region hernia. IMPRESSION: 1. No acute abnormality in the abdomen or pelvis. 2. Thickened appearance of the distal esophageal wall, could be from esophagitis with other patholog ic thickening such as neoplasm not excluded.
[2023-07-07] MEDS ORDERED: ONDANSETRON 4 MG/2 ML VIAL IVP STA (21:51)
[2023-07-07 21:56] LABS: Appearance,Urine Clear (Clear); Bilirubin,Urine Negative (Negative); Blood,Urine Small (Negative); Color,Urine Light Yellow; Glucose,Urine (UA) Negative (Negative); Ketones,Urine 2+ (Negative); Leukocyte Esterase,Urine Negative (Negative); Nitrite,Urine Negative (Negative); PH, Urine 6.5 (5.0-8.0); Protein,Urine 1+ (Negative); RBC,Urine 2 /hpf (0-5); Squamous Epithelial Cell,Urine 1 /hpf (0-4); Urobilinogen,Urine <2.0 mg/dL (<2.0)
[2023-07-07 21:58] LABS: Specific Gravity,Urine >1.050 (1.001-1.035)
[2023-07-07] MEDS ORDERED: NALOXONE 0.4 MG/ML 1 ML VIAL IV PRN (22:57)
[2023-07-07] MEDS: SODIUM CHLORIDE 0.9% 1,000 ML IV SCH (23:48)
[2023-07-08] MEDS ORDERED: METOCLOPRAMIDE 5 MG/ML 2 ML VIAL IVP PRN (03:56)
[2023-07-08] MEDS: MORPHINE SULFATE 2 MG/ML SYRINGE IVP PRN ×5 (04:07→21:50)
[2023-07-08] MEDS: ONDANSETRON 4 MG/2 ML VIAL IVP PRN ×3 (06:11→21:50)
[2023-07-08 07:30] LABS: Basophils % (A) 0 %; Eosinophils # (A) 0.2 k/uL (0-0.7); Eosinophils % (A) 1 %; HCT 39.3 % (34.0-46.0); HGB 13.7 gm/dL (11.4-16.0); Lymphocytes # (A) 2.3 k/uL (1.0-4.8); Lymphocytes % (A) 10 %; MCH 30.3 pg (25.0-35.0); MCHC 34.8 g/dL (31.0-37.0); MCV 86.9 fL (80.0-100.0); Mean Platelet Volume 7.7; Monocytes # (A) 0.8 k/uL (0-1.0); Monocytes % (A) 4 %; Neutrophils # (A) 18.9 k/uL (1.3-7.7); Neutrophils % (A) 85 %; Platelet Count 264 k/uL (150-450); RBC 4.52 m/uL (3.80-5.40); RDW 12.9 % (11.5-15.5); WBC 22.4 k/uL (3.8-10.6)
[2023-07-08 07:58] LABS: HCG,Qualitative Serum Not Detected
[2023-07-08 08:00] LABS: African American GFR (CKD) >90 (>60 ml/min/1.73 sqM); Anion Gap 14 mmol/L; Blood Urea Nitrogen 24 mg/dL (7-17); Calcium 9.5 mg/dL (8.4-10.2); Carbon Dioxide 25 mmol/L (22-30); Chloride 98 mmol/L (98-107); Glucose 140 mg/dL (74-99); Non-African American GFR(CKD) 82 (>60 ml/min/1.73 sqM); Potassium 3.4 mmol/L (3.5-5.1); Sodium 137 mmol/L (137-145)
[2023-07-08] MEDS: diphenhydrAMINE 50 MG/ML 1 ML VIAL IVP PRN ×2 (08:39→15:41)
[2023-07-08] MEDS: PANTOPRAZOLE 40 MG/10 ML VIAL IVP SCH (08:39)
[2023-07-08] MEDS ORDERED: FLUoxetine HCL 10 MG CAP PO SCH (09:00)
[2023-07-08] MEDS: METOCLOPRAMIDE 5 MG/ML 2 ML VIAL IVP PRN ×2 (10:55→20:03)
[2023-07-08] MEDS: SODIUM CHLORIDE 0.9% 1,000 ML IV SCH (14:33)
[2023-07-08 15:14] LABS: Albumin 4.7 g/dL (3.5-5.0); Albumin/Globulin Ratio 1.5; Bilirubin,Unconjugated 0.7 mg/dL (0.0-1.1); Globulin 3.1 g/dL; Total Bilirubin 0.9 mg/dL (0.2-1.3); Total Protein 7.8 g/dL (6.3-8.2)
[2023-07-08] MEDS ORDERED: DICYCLOMINE 20 MG TAB PO PRN (17:31)
--- NOTE | 2023-07-08 17:33 | P.HPIM ---
History of Present Illness H&P Date: 07/08/23 Chief Complaint: Nausea/vomiting 42-year-old female presented ER with chief complaint of nausea vomiting. Patient has a past medical history significant for IBS for which she sees Dr. Allison. She states she has been vomiting for the past 24 hours uncontrollably. She endorses associated generalized abdominal pain she thinks from vomiting. She described her vomit as brown in color and denies any blood. She states she has not been in to keep anything down including water and she just vomits it back up. Patient denies any fevers, chills, chest pain, shortness of breath, urinary symptoms. Labs were significant for a white blood cell count of 26.4 and mild transaminitis. UA was negative. Computed tomography scan of abdomen and pelvis showed no acute abnormality. Ct abdomen pelvis showed thickened appearance of the distal esophageal wall. Patient received IV fluids, Reglan, Zofran and was still having irretractable vomiting upon reevaluation. Patient will be admitted for observation and IV medications. Review of Systems REVIEW OF SYSTEMS: CONSTITUTIONAL: No fever, no malaise, no fatigue. HEENT: No recent visual problems or hearing problems. Denied any sore throat. CARDIOVASCULAR: No chest pain, orthopnea, PND, no palpitations, no syncope. PULMONARY: No shortness of breath, no cough, no hemoptysis. GASTROINTESTINAL: No diarrhea, no nausea, no vomiting, no abdominal pain. NEUROLOGICAL: No headaches, no weakness, no numbness. HEMATOLOGICAL: Denies any bleeding or petechiae. GENITOURINARY: Denies any burning micturition, frequency, or urgency. MUSCULOSKELETAL/RHEUMATOLOGICAL: Denies any joint pain, swelling, or any muscle pain. ENDOCRINE: Denies any polyuria or polydipsia. The rest of the 14-point review of systems is negative. Past Medical History Past Medical History: Fibromyalgia, Thyroid Disorder Additional Past Medical History / Comment(s): DDD, bulging discs, neuropathy in legs, thyroid nodules, anemia, environmental allergies, constipation/diarrhea, IBS diagnosed in 2019, chronic gastritis. History of Any Multi-Drug Resistant Organisms: None Reported Past Surgical History: Hysterectomy, Orthopedic Surgery Additional Past Surgical History / Comment(s): Right wrist and forearm surgery, D&C, mass on vocal cords - surgery and biopsy. Past Anesthesia/Blood Transfusion Reactions: Postoperative Nausea & Vomiting (PONV) Additional Past Anesthesia/Blood Transfusion Reaction / Comment(s): Constipation post-op. Past Psychological History: Anxiety Smoking Status: Former smoker, Vaper Past Alcohol Use History: None Reported Additional Past Alcohol Use History / Comment(s): Quit smoking in 2019, history of 1 PPD. Started smoking at age 14. Pt vapes and smokes marajuana Past Drug Use History: Marijuana Additional Drug Use History / Comment(s): last smoked marijauna 5 days ago - Past Family History Mother Family Medical History: No Reported History Father Family Medical History: COPD Additional Family Medical History / Comment(s): "Cardiovascular swelling". Medications and Allergies Home Medications Medication Instructions Recorded Confirmed Type HYDROcodone/APAP 10-325MG [Bellamy 1 tab PO QID 04/03/17 07/08/23 History 10-325] Pantoprazole Sodium [Protonix] 40 mg PO BID PRN 06/11/20 07/08/23 History Ergocalciferol (Vitamin D2) 1,250 mcg PO WE 09/18/22 07/08/23 History [Drisdol (50,000 Iu)] Amitriptyline HCl [Elavil] 25 mg PO HS 07/08/23 07/08/23 History Dicyclomine [Bentyl] 20 mg PO QID PRN 07/08/23 07/08/23 History Promethazine [Phenergan] 12.5 mg PO DAILY 07/08/23 07/08/23 History Allergies Allergy/AdvReac Type Severity Reaction Status Date / Time propoxyphene Allergy Rash/Hives Verified 07/08/23 14:00 [From [email or web address]] Physical Exam Vitals: Vital Signs Temp Pulse Pulse Resp BP BP Pulse Ox 07/08/23 06:50 98.2 F 87 16 125/81 96 07/08/23 00:09 98.3 F 85 16 137/80 97 07/07/23 23:42 102 H 18 153/94 96 07/07/23 21:15 106 H 18 113/78 97 07/07/23 17:47 98.4 F 140 H 18 146/98 96 Intake and Output 07/07/23 07/08/23 07/08/23 22:59 06:59 14:59 Other: Voiding Method Toilet # Voids 1 Weight 77.111 kg 77.111 kg General appearance: alert, anxious Respiratory exam: Present: normal lung sounds bilaterally. Absent: respiratory distress, wheezes, rales, rhonchi, stridor Cardiovascular Exam: Present: regular rate, normal rhythm, normal heart sounds. Absent: systolic murmur, diastolic murmur, rubs, gallop, clicks GI/Abdominal exam: Present: soft, tenderness (Generalized), normal bowel sounds Neurological exam: Present: alert, oriented X3, CN II-XII intact Skin exam: Present: normal color, diaphoretic Results CBC & Chem 7: 07/08/23 07:10 07/08/23 07:10 Labs: Abnormal Lab Results - Last 24 Hours (Table) 07/07/23 07/07/23 07/07/23 Range/Units 18:35 18:35 21:15 WBC 26.4 H (3.8-10.6) k/uL Neutrophils # 22.5 H (1.3-7.7) k/uL Potassium (3.5-5.1) mmol/L Chloride 95 L (98-107) mmol/L BUN 31 H (7-17) mg/dL Creatinine 1.12 H (0.52-1.04) mg/dL Glucose 129 H (74-99) mg/dL Calcium 10.8 H (8.4-10.2) mg/dL AST 78 H (14-36) U/L ALT 109 H (4-34) U/L Alkaline Phosphatase 136 H (38-126) U/L Total Protein 9.5 H (6.3-8.2) g/dL Albumin 5.5 H (3.5-5.0) g/dL Ur Specific [place] >1.050 H (1.001-1.035) Urine Protein 1+ H (Negative) Urine Ketones 2+ H (Negative) Urine Blood Small H (Negative) 07/08/23 07/08/23 Range/Units 07:10 07:10 WBC 22.4 H (3.8-10.6) k/uL Neutrophils # 18.9 H (1.3-7.7) k/uL Potassium 3.4 L (3.5-5.1) mmol/L Chloride (98-107) mmol/L BUN 24 H (7-17) mg/dL Creatinine (0.52-1.04) mg/dL Glucose 140 H (74-99) mg/dL Calcium (8.4-10.2) mg/dL AST (14-36) U/L ALT (4-34) U/L Alkaline Phosphatase (38-126) U/L Total Protein (6.3-8.2) g/dL Albumin (3.5-5.0) g/dL Ur Specific [place] (1.001-1.035) Urine Protein (Negative) Urine Ketones (Negative) Urine Blood (Negative) Assessment and Plan Assessment: 1. Intractable nausea vomiting - Patient is currently nothing by mouth; continues to have intractable nausea; not able to eat or drink anything - Symptomatic care in place; continue with anti-emetics; IV Protonix - We will plan to start a clear liquid diet in next 24 hours and advance as tolerated 2. Elevated liver enzymes; we will repeat liver function test order acute hepatitis profile; we'll patient initiate further workup pending results 3. Marked leukocytosis; no obvious source of infection; we will monitor CBC closely and order pro-calcitonin; we will consult ID if white blood count remains elevated 4. Fibromyalgia; patient takes Elavil 25 mg by mouth daily at bedtime along with Bellamy 10 mg 4 times a day 5. Irritable bowel syndrome; Bentyl 20 mg 4 times a day when necessary; Phenergan 12.5 mg daily 6. GERD/gastritis; patient takes Protonix 40 mg twice a day at home as needed
[2023-07-08] MEDS ORDERED: SCOPOLAMINE 1 MG/72 HR PATCH TRANSDERM SCH (18:00)
[2023-07-08] MEDS: AMITRIPTYLINE HCL 25 MG TAB PO SCH (20:02)
[2023-07-09 00:09] LABS: Hepatitis A Antibody IgM Nonreactive; Hepatitis B Core IgM Nonreactive; Hepatitis B Surface Antigen Nonreactive; Hepatitis C IgG Antibody Nonreactive
[2023-07-09] MEDS: SODIUM CHLORIDE 0.9% 1,000 ML IV SCH ×3 (02:29→17:46)
[2023-07-09] MEDS: MORPHINE SULFATE 2 MG/ML SYRINGE IVP PRN ×5 (03:31→21:48)
[2023-07-09] MEDS: METOCLOPRAMIDE 5 MG/ML 2 ML VIAL IVP PRN ×3 (03:31→21:48)
[2023-07-09] MEDS: ONDANSETRON 4 MG/2 ML VIAL IVP PRN ×3 (07:56→19:58)
[2023-07-09] MEDS: PANTOPRAZOLE 40 MG/10 ML VIAL IVP SCH ×2 (08:47→19:58)
[2023-07-09 09:09] LABS: Procalcitonin 0.09 ng/mL (0.02-0.09)
[2023-07-09 09:20] LABS: Basophils # (A) 0.06 X 10*3/uL (0.00-0.10); Basophils % (A) 0.4 %; Blood Urea Nitrogen 14.4 mg/dL (9.0-27.0); Calcium 9.4 mg/dL (8.7-10.3); Carbon Dioxide 23.3 mmol/L (21.6-31.8); Chloride 100 mmol/L (96-109); Eosinophils # (A) 0.01 X 10*3/uL (0.04-0.35); Eosinophils % (A) 0.1 %; Glucose 100 mg/dL (70-110); HCT 38.3 % (37.2-46.3); HGB 12.8 g/dL (12.0-15.0); Lymphocytes # (A) 2.44 X 10*3/uL (0.90-5.00); Lymphocytes % (A) 16.8 %; MCH 29.8 pg (27.0-32.0); MCHC 33.4 g/dL (32.0-37.0); MCV 89.3 FL (80.0-97.0); Mean Platelet Volume 10.8 FL (9.5-12.2); Monocytes # (A) 0.92 X 10*3/uL (0.20-1.00); Monocytes % (A) 6.3 %; NRBC Per 100 WBC 0 X 10*3/uL (0.00-0.01); Neutrophils # (A) 10.96 X 10*3/uL (1.80-7.70); Neutrophils % (A) 75.4 %; Platelet Count 225 X 10*3/uL (140-440); Potassium 3.9 mmol/L (3.5-5.5); RBC 4.29 X 10*6/uL (4.10-5.20); Sodium 139 mmol/L (135-145); WBC 14.54 X 10*3/uL (4.50-10.00)
--- NOTE | 2023-07-09 19:40 | P.PN ---
Subjective Progress Note Date: 07/09/23 42-year-old female presented ER with chief complaint of nausea vomiting. Patient has a past medical history significant for IBS for which she sees Dr. Allison. She states she has been vomiting for the past 24 hours uncontrollably. She endorses associated generalized abdominal pain she thinks from vomiting. She described her vomit as brown in color and denies any blood. She states she has not been in to keep anything down including water and she just vomits it back up. Patient denies any fevers, chills, chest pain, shortness of breath, urinary symptoms. Labs were significant for a white blood cell count of 26.4 and mild transaminitis. UA was negative. Computed tomography scan of abdomen and pelvis showed no acute abnormality. Ct abdomen pelvis showed thickened appearance of the distal esophageal wall. Patient received IV fluids, Reglan, Zofran and was still having irretractable vomiting upon reevaluation. Patient will be admitted for observation and IV medications. 06/08/2023 Patient is seen and evaluated in follow-up maintain on IV hydration along with pain medication reporting some improvement in abdominal pain. CT abdomen was performed showing likely gastritis and will increase Protonix to twice daily. Will follow up on repeat labs as patient also had an elevated white count. Patient remains afebrile with no reported chest pain or shortness of breath. Patient is requesting food as she has not been having any oral intake overnight. Will start clear liquids and slowly advance as tolerated to full liquids. Patient reports she does follow with GI in the outpatient setting and has an appointment early next week and will discuss possible outpatient EGD. Patient has been encouraged to increase activity as tolerated. Review of systems: Constitutional: No reports of fatigue, fever, or chills Cardiovascular: No reports of chest pain or palpitations Respiratory: No reports of shortness of breath or cough GI: No reports of nausea, vomiting, or diarrhea, reports improvement in her abdominal pain : No reports of dysuria or retention Neurovascular: No reports of weakness or numbness All medications have been reviewed Physical exam: Gen: This is a 42-year-old female who is awake, alert and oriented 3, well- developed, well-nourished HEENT: Head is atraumatic, normocephalic. Pupils equal, round. Sclerae is anicteric. NECK: Supple. No JVD. No lymphadenopathy. No thyromegaly. LUNGS: Clear to auscultation. No wheezes or rhonchi. No intercostal retraction s. HEART: Regular rate and rhythm. No murmur. ABDOMEN: Soft. Mildly tender on palpation. Nondistended. Bowel sounds are present. No masses. EXTREMITIES: No pedal edema. No calf tenderness. NEUROLOGICAL: Patient is awake, alert and oriented x3. Cranial nerves 2 through 12 are grossly intact. Assessment: 1. Intractable nausea vomiting likely gastritis. Patient reports she follows with GI outpatient 2. Elevated liver enzymes 3. Marked leukocytosis; no obvious source of infection likely secondary to gastritis 4. Fibromyalgia 5. Irritable bowel syndrome history 6. GERD/gastritis Plan: Patient will be continued on IV hydration along with pain management and reports some improvement in abdominal pain Patient underwent CT abdomen showing acute gastritis and patient does have histo ry of irritable bowel reports she follows a GI outpatient and has an appointment next week. Discussed with the patient about keeping that appointment and discussing possible EGD as she has not been scoped she reports in 3 years Continue Protonix and will increase to twice daily IV Initiate clear liquids and slowly advance to full liquids as tolerated Will follow-up on repeat labs Encouraged increased activity as tolerated Possible discharge planning in the next 24 hours The impression and plan of care has been dictated by Chela Jaimes, Nurse Practitioner as directed. Dr. Phil MD I have performed a history and examination and MDM of this patient, discussed the same with the dictator, and agree with the dictator's assessment and plan as written ,documented as a scribe. Based on total visit time, I have performed more than 50% of the visit. Objective - Vital Signs Vital signs: Vital Signs Temp 98.4 F 07/09/23 07:05 Pulse 80 07/09/23 07:05 Resp 16 07/09/23 07:05 BP 123/79 07/09/23 07:05 Pulse Ox 100 07/09/23 07:05 FiO2 Intake & Output 07/08/23 07/09/23 07/09/23 18:59 06:59 18:59 Output Total 300 Balance -300 Output: Emesis 300 Other: Voiding Method Toilet Toilet # Voids 2 1 - Labs CBC & Chem 7: 07/09/23 06:06 07/09/23 06:06 Labs: Abnormal Lab Results - Last 24 Hours (Table) 07/08/23 07/09/23 07/09/23 Range/Units 14:03 06:06 06:06 WBC 14.54 H (4.50-10.00) X 10*3/uL Neutrophils # 10.96 H (1.80-7.70) X 10*3/uL Eosinophils # 0.01 L (0.04-0.35) X 10*3/uL Anion Gap 15.70 H (4.00-12.00) mmol/L AST 65 H (14-36) U/L ALT 86 H (4-34) U/L
[2023-07-09] MEDS: AMITRIPTYLINE HCL 25 MG TAB PO SCH (19:57)
[2023-07-10] MEDS: MORPHINE SULFATE 2 MG/ML SYRINGE IVP PRN ×5 (02:22→22:07)
[2023-07-10] MEDS: ONDANSETRON 4 MG/2 ML VIAL IVP PRN ×3 (02:22→22:07)
[2023-07-10] MEDS: SODIUM CHLORIDE 0.9% 1,000 ML IV SCH ×2 (05:12→10:34)
[2023-07-10] MEDS: METOCLOPRAMIDE 5 MG/ML 2 ML VIAL IVP PRN ×2 (06:23→16:18)
[2023-07-10] MEDS: PANTOPRAZOLE 40 MG/10 ML VIAL IVP SCH ×2 (08:23→19:39)
[2023-07-10 10:44] LABS: Basophils # (A) 0.08 X 10*3/uL (0.00-0.10); Basophils % (A) 0.6 %; Eosinophils # (A) 0 X 10*3/uL (0.04-0.35); Eosinophils % (A) 0 %; HCT 40.8 % (37.2-46.3); HGB 14.1 g/dL (12.0-15.0); Lymphocytes # (A) 3.45 X 10*3/uL (0.90-5.00); Lymphocytes % (A) 27.1 %; MCH 30.2 pg (27.0-32.0); MCHC 34.6 g/dL (32.0-37.0); MCV 87.4 FL (80.0-97.0); Mean Platelet Volume 10.8 FL (9.5-12.2); Monocytes # (A) 0.74 X 10*3/uL (0.20-1.00); Monocytes % (A) 5.8 %; NRBC Per 100 WBC 0 X 10*3/uL (0.00-0.01); Neutrophils # (A) 8.38 X 10*3/uL (1.80-7.70); Neutrophils % (A) 65.9 %; Platelet Count 248 X 10*3/uL (140-440); RBC 4.67 X 10*6/uL (4.10-5.20); RDW 12.7 % (11.5-14.5); WBC 12.73 X 10*3/uL (4.50-10.00)
[2023-07-10 11:49] LABS: BUN/Creat Ratio 14.12 Ratio (12.00-20.00); Blood Urea Nitrogen 11.3 mg/dL (9.0-27.0); Calcium 9.6 mg/dL (8.7-10.3); Carbon Dioxide 20.3 mmol/L (21.6-31.8); Chloride 101 mmol/L (96-109); Glucose 99 mg/dL (70-110); Magnesium 2.4 mg/dL (1.5-2.4); Potassium 3.8 mmol/L (3.5-5.5); Sodium 137 mmol/L (135-145)
[2023-07-10] MEDS: AMITRIPTYLINE HCL 25 MG TAB PO SCH (19:40)
[2023-07-11] MEDS: ONDANSETRON 4 MG/2 ML VIAL IVP PRN ×2 (03:30→09:38)
[2023-07-11] MEDS: MORPHINE SULFATE 2 MG/ML SYRINGE IVP PRN (03:30)
[2023-07-11] MEDS: SODIUM CHLORIDE 0.9% 1,000 ML IV SCH (05:38)
--- NOTE | 2023-07-11 05:56 | P.PN ---
Subjective Progress Note Date: 07/10/23 42-year-old female presented ER with chief complaint of nausea vomiting. Patient has a past medical history significant for IBS for which she sees Dr. Allison. She states she has been vomiting for the past 24 hours uncontrollably. She endorses associated generalized abdominal pain she thinks from vomiting. She described her vomit as brown in color and denies any blood. She states she has not been in to keep anything down including water and she just vomits it back up. Patient denies any fevers, chills, chest pain, shortness of breath, urinary symptoms. Labs were significant for a white blood cell count of 26.4 and mild transaminitis. UA was negative. Computed tomography scan of abdomen and pelvis showed no acute abnormality. Ct abdomen pelvis showed thickened appearance of the distal esophageal wall. Patient received IV fluids, Reglan, Zofran and was still having irretractable vomiting upon reevaluation. Patient will be admitted for observation and IV medications. 07/09/2023 Patient is seen and evaluated in follow-up maintain on IV hydration along with pain medication reporting some improvement in abdominal pain. CT abdomen was performed showing likely gastritis and will increase Protonix to twice daily. Will follow up on repeat labs as patient also had an elevated white count. Patient remains afebrile with no reported chest pain or shortness of breath. Patient is requesting food as she has not been having any oral intake overnight. Will start clear liquids and slowly advance as tolerated to full liquids. Patient reports she does follow with GI in the outpatient setting and has an appointment early next week and will discuss possible outpatient EGD. Patient has been encouraged to increase activity as tolerated. 07/10/2023 Patient is seen in follow-up this morning and patient has been having nausea and vomiting. Patient was on clear liquids and not tolerating. Will make patient nothing by mouth and consult GI for appreciated input and recommendations. Patient reports abdominal pain is somewhat improved although continues to have some cramping and nausea noted. Encouraged patient to small sips of water and will continue with IV hydration. Labs reviewed and within normal limits. Patient is afebrile denies chest pain or shortness of breath. Encouraged to increase activity as tolerated. Review of systems: Constitutional: No reports of fatigue, fever, or chills Cardiovascular: No reports of chest pain or palpitations Respiratory: No reports of shortness of breath or cough GI: reports of nausea, and has had vomiting this morning, no diarrhea, reports slight improvement in her abdominal pain : No reports of dysuria or retention Neurovascular: No reports of weakness or numbness All medications have been reviewed Physical exam: Gen: This is a 42-year-old female who is awake, alert and oriented 3, well- developed, well-nourished HEENT: Head is atraumatic, normocephalic. Pupils equal, round. Sclerae is anicteric. NECK: Supple. No JVD. No lymphadenopathy. No thyromegaly. LUNGS: Clear to auscultation. No wheezes or rhonchi. No intercostal retractions. HEART: Regular rate and rhythm. No murmur. ABDOMEN: Soft. Mildly tender on palpation. Nondistended. Bowel sounds are present. No masses. EXTREMITIES: No pedal edema. No calf tenderness. NEUROLOGICAL: Patient is awake, alert and oriented x3. Cranial nerves 2 through 12 are grossly intact. Assessment: 1. Intractable nausea vomiting likely gastritis. Patient reports she follows with GI outpatient 2. Elevated liver enzymes, trending down 3. Marked leukocytosis; no obvious source of infection likely secondary to gastritis, trending down 4. Fibromyalgia 5. Irritable bowel syndrome history 6. GERD/gastritis Plan: Patient will be continued on IV hydration along with pain management and reports some improvement in abdominal pain Patient underwent CT abdomen showing acute gastritis and patient does have history of irritable bowel reports she follows with GI outpatient and patient was started on clear liquids and continues with nausea with vomiting and will make the patient nothing by mouth except for occasional sips of water and have GI evaluate the patient while here. Continue Protonix and will increase to twice daily IV Awake diet until evaluated by GI as patient may possibly need an EGD Will follow-up on repeat labs Encouraged increased activity as tolerated GI consulted and appreciate input and recommendations The impression and plan of care has been dictated by Chela Jaimes, Nurse Practitioner as directed. Dr. Phil MD I have performed a history and examination and MDM of this patient, discussed the same with the dictator, and agree with the dictator's assessment and plan as written ,documented as a scribe. Based on total visit time, I have performed more than 50% of the visit. Objective - Vital Signs Vital signs: Vital Signs Temp 98.8 F 07/11/23 00:39 Pulse 88 07/11/23 00:39 Resp 16 07/11/23 00:39 BP 178/105 07/11/23 00:39 Pulse Ox 99 07/11/23 00:39 FiO2 Intake & Output 07/10/23 07/10/23 07/11/23 06:59 18:59 06:59 Intake Total 680 Balance 680 Intake: Oral 680 Other: Voiding Method Toilet Toilet # Voids 2 3 1 - Labs CBC & Chem 7: 07/10/23 06:41 07/10/23 06:41 Labs: Abnormal Lab Results - Last 24 Hours (Table) 07/10/23 07/10/23 Range/Units 06:41 06:41 WBC 12.73 H (4.50-10.00) X 10*3/uL Neutrophils # 8.38 H (1.80-7.70) X 10*3/uL Eosinophils # 0 L (0.04-0.35) X 10*3/uL Carbon Dioxide 20.3 L (21.6-31.8) mmol/L Anion Gap 15.70 H (4.00-12.00) mmol/L
[2023-07-11 08:38] LABS: Basophils # (A) 0.05 X 10*3/uL (0.00-0.10); Basophils % (A) 0.5 %; Eosinophils # (A) 0 X 10*3/uL (0.04-0.35); Eosinophils % (A) 0 %; HCT 38.8 % (37.2-46.3); HGB 13.8 g/dL (12.0-15.0); Lymphocytes # (A) 2.54 X 10*3/uL (0.90-5.00); Lymphocytes % (A) 27.1 %; MCH 30.5 pg (27.0-32.0); MCHC 35.6 g/dL (32.0-37.0); MCV 85.7 FL (80.0-97.0); Mean Platelet Volume 10.6 FL (9.5-12.2); Monocytes # (A) 0.54 X 10*3/uL (0.20-1.00); Monocytes % (A) 5.8 %; NRBC Per 100 WBC 0 X 10*3/uL (0.00-0.01); Neutrophils # (A) 6.18 X 10*3/uL (1.80-7.70); Neutrophils % (A) 65.9 %; Platelet Count 246 X 10*3/uL (140-440); RBC 4.53 X 10*6/uL (4.10-5.20); RDW 12.5 % (11.5-14.5); WBC 9.38 X 10*3/uL (4.50-10.00)
[2023-07-11 08:57] LABS: BUN/Creat Ratio 16.14 Ratio (12.00-20.00); Blood Urea Nitrogen 11.3 mg/dL (9.0-27.0); Calcium 9.1 mg/dL (8.7-10.3); Carbon Dioxide 22.8 mmol/L (21.6-31.8); Chloride 101 mmol/L (96-109); Glucose 89 mg/dL (70-110); Potassium 3.5 mmol/L (3.5-5.5); Sodium 138 mmol/L (135-145)
[2023-07-11] MEDS: PANTOPRAZOLE 40 MG/10 ML VIAL IVP SCH (09:37)
--- NOTE | 2023-07-11 10:19 | P.CONS ---
History of Present Illness - Reason for Consult Consult date: 07/11/23 Nausea and vomiting, epigastric pain Requesting physician: Leonardo Villarreal - Chief Complaint Intractable nausea and vomiting - History of Present Illness This is a 42-year-old female with a history of irritable bowel syndrome diagnosed in 2019, fibromyalgia, chronic back pain, and thyroid disorder. She follows with Dr. Allison in the office. She is maintained on Bentyl 10 mg 3 times a day, Zofran and Reglan as needed and protonic 40 mg twice a day. She presented to the emergency department 4 days ago with complaints of intractable nausea and vomiting for the last 5 days duration. Gastroenterology was consulted for nausea and vomiting and abdominal pain. She denies any abdominal pain states that most of her discomfort was related to retching several times a day. Her last type she had vomiting was yesterday evening. Last EGD and colonoscopy was January [address] Rousseau. EGD with findings of gastritis and colonoscopy significant for mild ileitis and internal hemorrhoids. She denies any nausea or vomiting this morning. She states no abdominal pain, denies any hematemesis. No fevers, chills, or body aches. She did have a CT of the abdomen and pelvis on admission that reported no acute abnormality in the abdomen or pelvis. Thickened appearance of the distal esophageal wall, could be from esophagitis with other pathologic thickening such as neoplasm is not excluded. She did present with leukocytosis on admission which WBC was 22.4 which has trended down to 9.3 today. Labs WBC 9.3 hemoglobin 13.8 platelet count 246,000 sodium 138 potassium 3.5 total bilirubin is 0.9 AST 65 AST 86 alkaline phosphatase 111 hepatitis panel nonreactive. Review of Systems REVIEW OF SYSTEMS: CARDIOPULMONARY: No chest pain or shortness of breath. Gastrointestinal: No abdominal pain currently or epigastric pain. Patient states she did have some epigastric discomfort states that she felt it was related to all the vomiting. Patient had nausea and vomiting multiple pulse times a day for the last 4-5 days duration. No nausea or vomiting currently. No nausea or vomiting. No hematemesis, coffee-ground emesis. No rectal bleedi ng, or melena. GENITOURINARY: No dysuria or hematuria. MUSCULOSKELETAL: Reports normal range of motion. Chronic pain. SKIN: No rashes. No jaundice. ENDOCRINE: No chills, fevers. No excessive weight gain or loss. No polydipsia or polyuria. PSYCHIATRIC: Unremarkable. NEUROLOGY: No change in mental status. Denies dizziness, headache. ENT: Vision unremarkable. CONSTITUTIONAL: No recent weight loss. No fever, chills, night sweats. Past Medical History Past Medical History: Fibromyalgia, Thyroid Disorder Additional Past Medical History / Comment(s): DDD, bulging discs, neuropathy in legs, thyroid nodules, anemia, environmental allergies, constipation/diarrhea, IBS diagnosed in 2019, chronic gastritis. History of Any Multi-Drug Resistant Organisms: None Reported Past Surgical History: Hysterectomy, Orthopedic Surgery Additional Past Surgical History / Comment(s): Right wrist and forearm surgery, D&C, mass on vocal cords - surgery and biopsy. Past Anesthesia/Blood Transfusion Reactions: Postoperative Nausea & Vomiting (PONV) Additional Past Anesthesia/Blood Transfusion Reaction / Comm: Constipation post- op. Past Psychological History: Anxiety Smoking Status: Former smoker, Vaper Past Alcohol Use History: None Reported Additional Past Alcohol Use History / Comment(s): Quit smoking in 2019, history of 1 PPD. Started smoking at age 14. Pt vapes and smokes marajuana Past Drug Use History: Marijuana Additional Drug Use History / Comment(s): last smoked marijauna 5 days ago - Past Family History Mother Family Medical History: No Reported History Father Family Medical History: COPD Additional Family Medical History / Comment(s): "Cardiovascular swelling". Medications and Allergies Home Medications Medication Instructions Recorded Confirmed Type HYDROcodone/APAP 10-325MG [[place] 1 tab PO QID 04/03/17 07/08/23 History 10-325] Pantoprazole Sodium [Protonix] 40 mg PO BID PRN 06/11/20 07/08/23 History Ergocalciferol (Vitamin D2) 1,250 mcg PO WE 09/18/22 07/08/23 History [Drisdol (50,000 Iu)] Amitriptyline HCl [Elavil] 25 mg PO HS 07/08/23 07/08/23 History Dicyclomine [Bentyl] 20 mg PO QID PRN 07/08/23 07/08/23 History Promethazine [Phenergan] 12.5 mg PO DAILY 07/08/23 07/08/23 History Allergies Allergy/AdvReac Type Severity Reaction Status Date / Time propoxyphene Allergy Rash/Hives Verified 07/08/23 14:00 [From [facility]] Physical Exam Vitals: Vital Signs Temp Pulse Resp BP Pulse Ox 07/11/23 07:30 98.0 F 84 16 124/80 97 07/11/23 00:39 98.8 F 88 16 178/105 99 07/10/23 20:27 99.7 F H 87 16 164/91 100 07/10/23 14: 98.2 F 82 20 122/63 98 Intake and Output 07/10/23 07/11/23 07/11/23 22:59 06:59 14:59 Intake Total 500 Balance 500 Intake: Oral 500 Other: Voiding Method Toilet # Voids 1 3 General appearance: The patient is alert, oriented, appears in no acute distress. HET: Head is normocephalic and atraumatic. Conjunctiva pink. Sclera anicteric. Neck: Supple without lymphadenopathy. Trachea midline. Heart: Regular. Lungs: Equal expansion, normal respiratory effort. Abdomen: Soft, nontender, nondistended with bowel sounds. No guarding or rigidity. Skin: No rashes. No jaundice. Extremities: Normal skin color and turgor. No pedal edema. Neurological: No focal deficits. Alert and oriented x3. Results CBC & Chem 7: 07/11/23 06:06 07/11/23 06:06 Labs: Abnormal Lab Results - Last 24 Hours (Table) 07/10/23 07/10/23 Range/Units 06:41 06:41 WBC 12.73 H (4.50-10.00) X 10*3/uL Neutrophils # 8.38 H (1.80-7.70) X 10*3/uL Eosinophils # 0 L (0.04-0.35) X 10*3/uL Carbon Dioxide 20.3 L (21.6-31.8) mmol/L Anion Gap 15.70 H (4.00-12.00) mmol/L Comments: CT abdomen and pelvis with contrast: no acute abnormality in the abdomen or pelvis. Thickened appearance of the distal esophageal wall, could be from esophagitis with other pathologic thickening such as neoplasm is not excluded. Assessment and Plan (1) Intractable vomiting with nausea Narrative/Plan: 42-year-old female presented to the hospital 4 days ago with complaints of intractable nausea and vomiting. She states she had nausea and vomiting for the last 5 days duration unable to keep any fluids down. She was noted to have leukocytosis on admission. However denied any fevers, chills or body aches. No diarrhea, no hematemesis. She does have a history of irritable bowel syndrome and does follow with gastroenterology. She has episodes of nausea vomiting and diarrhea every few months which require hospitalization at times. States that she did have some acid reflux and some discomfort in the epigastric area which she states was related to irretractable nausea and vomiting. Denies any difficulty with swallowing. Nausea and vomiting have resolved. However she did undergo a CT of the abdomen pelvis on this admission that did show an area of thickening in the distal esophageal wall. Last EGD colonoscopy in 2019. Will proceed with upper endoscopy this afternoon. Current Visit: Yes Status: Acute Code(s): R11.2 - NAUSEA WITH VOMITING, UNSPECIFIED SNOMED Code(s): 071809887 (2) Anxiety Current Visit: No Status: Acute Code(s): F41.9 - ANXIETY DISORDER, UNSPECIFIED SNOMED Code(s): 64805469 (3) Fibromyalgia Current Visit: No Status: Acute Code(s): M79.7 - FIBROMYALGIA SNOMED Code(s): 051989494 (4) Irritable bowel syndrome Current Visit: No Status: Acute Code(s): K58.9 - IRRITABLE BOWEL SYNDROME WITHOUT DIARRHEA SNOMED Code(s): 47264410 (5) Leukocytosis Current Visit: No Status: Acute Code(s): D72.829 - ELEVATED WHITE BLOOD CELL COUNT, UNSPECIFIED SNOMED Code(s): 085257029 Plan: 1. Continue symptomatic and supportive care 2. Continue Protonix 40 mg twice a day 3. Continue antiemetics as needed 4. Nothing by mouth 5. Plan for EGD this afternoon 6. Further recommendations forthcoming following upper endoscopy Thank you for this consultation. Dr. Hermelinda Allison I agree with the dictator's note, documented as a scribe by Nohemi Newberry.
[2023-07-11] MEDS ORDERED: LIDOCAINE 2% (PF) 20 MG/ML 5 ML VIAL ONE (10:45)
[2023-07-11] MEDS ORDERED: PROPOFOL 10 MG/ML 20 ML VIAL IV ONE (10:45)
[2023-07-11] MEDS ORDERED: IV FLUID CONTINUATION 300 ML IV ONE (10:50)
--- NOTE | 2023-07-11 10:55 | P.PCN ---
Date of Procedure: 07/11/23 Procedure(s) Performed: BRIEF HISTORY: Patient is a 42-year-old, pleasant, white female scheduled for an upper endoscopy as a part of evaluation of recent episode of nausea vomiting epigastric pain for which she was admitted to hospital 3 days ago. Her symptoms are gradually improving. She had a CT of abdomen and pelvis and that showed thickening of the esophagus rule out neoplasm and hence scheduled for an upper endoscopy to evaluate further.. She has long standing history of GERD and has been on Protonix 40 mg daily. PROCEDURE PERFORMED: Esophagogastroduodenoscopy with biopsy. PREOPERATIVE DIAGNOSIS: History of GERD/abnormal CAT scan showed thickened esophagus. IV sedation per anesthesia. PROCEDURE: After informed consent was obtained, the patient was brought into the endoscopy unit. IV sedation was administered by Anesthesia under continuous monitoring. Initially the Olympus GIF-140 video endoscope was inserted into the mouth. Esophagus intubated without any difficulty. It was gradually advanced into the stomach and duodenum and carefully examined. The bulb and the second part of the duodenum appeared normal. The scope at this time was withdrawn to the stomach, adequately insufflated with air, and upon careful examination, mucosa of the antrum had mild gastritis and biopsies were done from this area. Mucosa, body, cardia and the fundus appeared normal. The scope was then withdrawn into the esophagus. Small hiatal hernia noted. The GE junction was located at 39 cm from the incisors. A linear erosions with exudates noted in the mid and distal esophagus with LA grade B reflux esophagitis. Biopsies were done from this area. The rest of the esophagus appeared normal. Ther patient tolerated the procedure well. IMPRESSION: 1. Linear erosions with exudates involving the distal esophagus LA grade B reflux esophagitis. 2. Small hiatal hernia 3. Mild antral gastritis. RECOMMENDATIONS: The findings of this examination were discussed with the patient . She was advised to continue with Protonix 40 mg daily and follow antireflux measures. Follow with the biopsy results. Advance diet as tolerated. She can be discharged home today with outpatient follow-up.
[2023-07-11] MEDS: METOCLOPRAMIDE 5 MG/ML 2 ML VIAL IVP PRN (12:30)
[2023-07-11] MEDS ORDERED: AMITRIPTYLINE HCL 25 MG TAB PO STA (14:27)
[2023-07-11 15:36] VITALS: TEMP 98.7
[2023-07-11] MEDS ORDERED: HYDROcodone/APAP 5-325MG 1 EACH TAB PO STA (16:40)
[2023-07-11] MEDS ORDERED: hydrALAZINE HCL 20 MG/ML 1 ML VIAL IVP STA (16:40)
[2023-07-11 17:59] VITALS: BP 138/86; PULSE 89; RESP 17
--- NOTE | 2023-07-13 10:07 | P.DS ---
Providers Date of admission: 07/09/23 06:04 Expected date of discharge: 07/11/23 Attending physician: Alejandro Smith MD Consults: 07/10/23 13:11 Consult Physician Urgent Consulting Provider: Devika Allison Consult Reason/Comments: IBS hx, intractable n/v, gastritis, follows outpatient Do you want consulting provider notified?: Yes Primary care physician: Gavin Sawyer [facility] Course: Final diagnosis 1. Intractable nausea vomiting likely gastritis. Patient follows with GI outpatient 2. Elevated liver enzymes, trending down 3. Marked leukocytosis; no obvious source of infection likely secondary to gastritis, trending down 4. Fibromyalgia 5. Irritable bowel syndrome history 6. GERD/gastritis status post EGD showing linear erosions with exudates involving the distal esophagus LA grade B reflux esophagitis with a small hiatal hernia and mild antral gastritis Discharge disposition Patient is being discharged in a stable condition with guarded prognosis to home. Patient will follow-up with Dr. Alonso in the outpatient setting upon discharge. Patient is to continue with Protonix 40 mg twice daily and close outpatient follow-up with Dr. Estefany PISANO as scheduled. Total time taken is greater than 35 minutes. Hospital course This is a 42-year-old female who was recently admitted with abdominal pain with intractable nausea and vomiting likely gastritis. Patient was unable to tolerate oral intake and also had mild transaminitis that was trending down with leukocytosis, most likely reactive. Patient was seen and evaluated by GI underwent EGD which showed linear erosions with exudates involving the distal esophagus and LA grade B reflux esophagitis with a small hiatal hernia and mild antral gastritis. Patient has been instructed to continue on Protonix 40 mg daily and follow-up outpatient for biopsy results. Patient to advance diet slowly as tolerated. Patient is extremely anxious and would like to go home and has been cleared by GI. Please refer to consultation note for further HPI. Currently no reports of chest pain, shortness of breath, or palpitations. Patient is afebrile. No reports of nausea or vomiting and patient is tolerating diet. Patient will be discharged home today. Physical exam: Gen: This is a 42-year-old female who is awake, alert and oriented 3, well- developed, well-nourished HEENT: Head is atraumatic, normocephalic. Pupils equal, round. Sclerae is anicteric. NECK: Supple. No JVD. No lymphadenopathy. No thyromegaly. LUNGS: Clear to auscultation. No wheezes or rhonchi. No intercostal retractions. HEART: Regular rate and rhythm. No murmur. ABDOMEN: Soft. Bowel sounds are present. No masses. No tenderness. EXTREMITIES: No pedal edema. No calf tenderness. NEUROLOGICAL: Patient is awake, alert and oriented x3. Cranial nerves 2 through 12 are grossly intact. Please refer to medication reconciliation sheet for a list of medications. The impression and plan of care has been dictated by Chela Jaimes, Nurse Practitioner as directed. Dr. Phil MD I have performed a history and examination and MDM of this patient, discussed the same with the dictator, and agree with the dictator's assessment and plan as written ,documented as a scribe. Based on total visit time, I have performed more than 50% of the visit. Patient Condition at Discharge: Stable Plan - Discharge Summary Discharge Rx Participant: No New Discharge Prescriptions: New Ondansetron Odt [Zofran Odt] 4 mg PO Q8HR PRN #20 tab PRN Reason: Nausea Continue HYDROcodone/APAP 10-325MG [[place] 10-325] 1 tab PO QID Ergocalciferol (Vitamin D2) [Drisdol (50,000 Iu)] 1,250 mcg PO WE Dicyclomine [Bentyl] 20 mg PO QID PRN PRN Reason: IBS Promethazine [Phenergan] 12.5 mg PO DAILY Amitriptyline HCl [Elavil] 25 mg PO HS Pantoprazole Sodium [Protonix] 40 mg PO BID PRN #60 tab PRN Reason: Heartburn/Gerd Discharge Medication List HYDROcodone/APAP 10-325MG [[place] 10-325] 1 tab PO QID 04/03/17 [History] Ergocalciferol (Vitamin D2) [Drisdol (50,000 Iu)] 1,250 mcg PO WE 09/18/22 [History] Amitriptyline HCl [Elavil] 25 mg PO HS 07/08/23 [History] Dicyclomine [Bentyl] 20 mg PO QID PRN 07/08/23 [History] Promethazine [Phenergan] 12.5 mg PO DAILY 07/08/23 [History] Ondansetron Odt [Zofran Odt] 4 mg PO Q8HR PRN #20 tab 07/11/23 [Rx] Pantoprazole Sodium [Protonix] 40 mg PO BID PRN #60 tab 07/11/23 [Rx] Follow up Appointment(s)/Referral(s): Digna Alonso MD [Primary Care Provider] - 1-2 days Devika Allison MD [STAFF PHYSICIAN] - 1 Week (Keep your scheduled appointment for next week for follow-up biopsy report) Patient Instructions/Handouts: Acute Nausea and Vomiting (DC), Upper Endoscopy (DC) Activity/Diet/Wound Care/Special Instructions: Activity Limited until follow-up Follow-up with primary care provider and discharge Follow-up with GI outpatient in 1-2 weeks as scheduled already for biopsy results Continue taking Protonix daily Continue with clear liquid to full liquid diet and slowly advance as tolerated over the next few days Discharge Disposition: HOME SELF-CARE
--- NOTE | 2023-07-13 10:19 | CDI ---
Documentation Clarification Form Date: 07/13/2023 09:43:45 AM From: Nallely Franco RN, CCDS Email: [email or web address] Admit Date: 07/09/2023 06:04:00 AM Patient Name: Khadijah Gibbons Visit Number: [id number] Discharge Date: 07/11/2023 06:21:00 PM ATTENTION: The Clinical Documentation Specialists (CDI) and [facility] Coding Staff appreciate your assistance in clarifying documentation. Please respond to the clarification below the line at the bottom and electronically sign. The CDI & [facility] Coding staff will review the response and follow-up if needed. Please note: Queries are made part of the Legal Health Record. If you have any questions, please contact the author of this message via ITS. Dr. Leonardo Villarreal Your patient had gastritis, leukocytosis, elevated heart rate and mild transaminitis. Based on this information and the findings below, is there an additional diagnosis that is clinically appropriate for this patient? History/Risk Factors: IBS, GERD, fibromyalgia and thyroid disorder. Presented with vomiting for 24 hours uncontrollably. Admitted with gastritis and found to have erosive esophagitis on EGD and mild antral gastritis. Clinical Indicators: 07/07-07/11 WBC: 26.4-22.4-14.5-12.7-9.38 07/07-07/08 AST: 78-65 07/07-07/08 ALT: 109-86 07/07-07/08 ALP: 136-111 07/07 HR 140-106-102 07/07 CT A/P: Thickened appearance of the distal esophageal wall, could be from esophagitis. H&P: "Labs were significant for a white blood cell count of 26.4 and mild transaminitis." 07/09 IM: "Marked leukocytosis; no obvious source of infection likely secondary to gastritis." 07/11 GI consult: "She did present with leukocytosis on admission with WBC 22.4 which has trended down to 9.3 today." 07/11 EGD: linear erosions with exudates involving the distal esophagus, small hiatal hernia and mild antral gastritis Treatment: IV 0.9 NS 1L bolus on 07/07 then 75mL/hr; Protonix 40mg IVP daily 07/08 and 07/09; Protonix 40mg IVP BID 07/09-07/11; IV Zofran 4mg x1 on 07/07; IV Zofran 4mg Q8H prn 07/08-07/09; IV Zofran 4mg Q6H prn 07/09-07/11; IV Reglan 10mg Q8H 07/08-07/11; IV Morphine 2mg IVP Q4H for pain 07/08-07/11; Is there an additional diagnosis that is clinically appropriate for this patient? [ ] SIRS, due to intractable nausea, vomiting and gastritis with mild transaminitis [ ] Other, please specify [ ] Unable to determine SIRS Criteria: 2 or more of the following may indicate SIRS -Temperature < 96.8F(36C) or > 101.0F (38.3C) -Heart Rate > 90 bpm -Respiratory Rate > 20 breaths/min or PaCO2 < 32 mmHg -White Blood Cell Count > 12,000 or < 4,000 cells/mm3 or > 10% bands Unable to determine MTDD
== END 2023-07-11 18:21 | disposition home or self-care (01) | DRG 392 ==
LOC: EC 17:46 → 6NMEDSUR 23:13 → OBSVTOIN 07-09 06:04
PROVIDERS: ADMIT Internal Medicine; ATTEND Internal Medicine
PROC: 0DB38ZX Excision of Lower Esophagus, Via Natural or Artificial Opening Endoscopic, Diagnostic (ICD-10-PCS; principal; 2023-07-11 08:30)
PROC: 0DB78ZX Excision of Stomach, Pylorus, Via Natural or Artificial Opening Endoscopic, Diagnostic (ICD-10-PCS; principal; 2023-07-11 08:30)
DX: K29.70 Gastritis, unspecified, without bleeding (principal); K22.10 Ulcer of esophagus without bleeding; Z28.310 Unvaccinated for COVID-19; K21.00 Gastro-esophageal reflux disease with esophagitis, without bleeding; K44.9 Diaphragmatic hernia without obstruction or gangrene; K64.8 Other hemorrhoids; K58.9 Irritable bowel syndrome, unspecified; M79.7 Fibromyalgia; F41.9 Anxiety disorder, unspecified; E04.2 Nontoxic multinodular goiter; G62.9 Polyneuropathy, unspecified; G89.29 Other chronic pain; M54.9 Dorsalgia, unspecified; K59.00 Constipation, unspecified; R74.01 Elevation of levels of liver transaminase levels; F17.290 Nicotine dependence, other tobacco product, uncomplicated; Z79.891 Long term (current) use of opiate analgesic; Z79.899 Other long term (current) drug therapy; Z88.5 Allergy status to narcotic agent
CPT/HCPCS: 36415; 43239; 74177; 80048; 80053; 80074; 80076; 81001; 82150; 83605; 83690; 83735; 84145; 84703; 85025; 88305; 88312; 96361; 96374; 96375; 99285

== ENCOUNTER → 2023-07-16 | Outpatient (CLI) | payer MEDICARE, OTHER ==
[2023-07-17 02:53] LABS: Basophils # (A) 0.05 X 10*3/uL (0.00-0.10); Basophils % (A) 0.6 %; Eosinophils # (A) 0 X 10*3/uL (0.04-0.35); Eosinophils % (A) 0 %; HCT 36.6 % (37.2-46.3); HGB 12.3 g/dL (12.0-15.0); Lymphocytes # (A) 3.48 X 10*3/uL (0.90-5.00); Lymphocytes % (A) 40.2 %; MCH 30.4 pg (27.0-32.0); MCHC 33.6 g/dL (32.0-37.0); MCV 90.6 FL (80.0-97.0); Mean Platelet Volume 12.8 FL (9.5-12.2); Monocytes # (A) 0.53 X 10*3/uL (0.20-1.00); Monocytes % (A) 6.1 %; NRBC Per 100 WBC 0 X 10*3/uL (0.00-0.01); Neutrophils # (A) 4.56 X 10*3/uL (1.80-7.70); Neutrophils % (A) 52.6 %; Platelet Count 278 X 10*3/uL (140-440); RBC 4.04 X 10*6/uL (4.10-5.20); RDW 13.6 % (11.5-14.5); WBC 8.66 X 10*3/uL (4.50-10.00)
[2023-07-17 02:56] LABS: ALT 91 U/L (8-44); AST 24 U/L (13-35); Albumin 4.1 g/dL (3.8-4.9); Albumin/Globulin Ratio 1.86 Ratio (1.60-3.17); Alkaline Phosphatase 74 U/L (41-126); BUN/Creat Ratio 14.12 Ratio (12.00-20.00); Blood Urea Nitrogen 11.3 mg/dL (9.0-27.0); Calcium 7.9 mg/dL (8.7-10.3); Carbon Dioxide 27.7 mmol/L (21.6-31.8); Chloride 102 mmol/L (96-109); Globulin 2.2 g/dL (1.6-3.3); Glucose 80 mg/dL (70-110); Potassium 3.7 mmol/L (3.5-5.5); Sodium 140 mmol/L (135-145); Total Bilirubin <0.2 mg/dL (0.3-1.2); Total Protein 6.3 g/dL (6.2-8.2)
== END | disposition home or self-care (01) ==
LOC: LABWHC1 15:53
PROVIDERS: ATTEND Nurse Practitioner Family
DX: R74.8 Abnormal levels of other serum enzymes (principal)
CPT/HCPCS: 36415; 80053; 85025

== ENCOUNTER 2023-08-18 14:15 | Emergency (ER) | payer MEDICARE, OTHER ==
[2023-08-18 14:25] VITALS: PULSE 88; RESP 18; TEMP 98
--- NOTE | 2023-08-18 15:40 | ED ---
General Adult HPI - General Chief complaint: Nausea/Vomiting/Diarrhea Stated complaint: Vomiting Time Seen by Provider: 08/18/23 14:32 Source: patient, RN notes reviewed Mode of arrival: ambulatory Limitations: no limitations - History of Present Illness Initial comments: 42-year-old female presents to the emergency department for evaluation of nausea and vomiting. She states that this is been going on for 24 hours. She does report that this has happened to her in the past and she has been admitted to the hospital for intractable nausea and vomiting. She states that she took her promethazine yesterday but has not taken anything today. She denies recent fever, chills, abdominal pain. Denies urinary frequency, dysuria, hematuria. - Related Data Home Medications Medication Instructions Recorded Confirmed HYDROcodone/APAP 10-325MG [[place] 1 tab PO QID 04/03/17 08/18/23 10-325] Ergocalciferol (Vitamin D2) 1,250 mcg PO WE 09/18/22 08/18/23 [Drisdol (50,000 Iu)] Amitriptyline HCl [Elavil] 25 mg PO HS 07/08/23 08/18/23 Dicyclomine [Bentyl] 20 mg PO QID PRN 07/08/23 08/18/23 Promethazine [Phenergan] 12.5 mg PO DAILY 07/08/23 08/18/23 polyethylene glycoL 3350 [Miralax] 17 gm PO DAILY PRN 08/18/23 08/18/23 Previous Rx's Medication Instructions Recorded Ondansetron Odt [Zofran Odt] 4 mg PO Q8HR PRN #20 tab 07/11/23 Pantoprazole Sodium [Protonix] 40 mg PO BID PRN #60 tab 07/11/23 Allergies Allergy/AdvReac Type Severity Reaction Status Date / Time propoxyphene Allergy Rash/Hives Verified 08/18/23 19:53 [From Sissy] Review of Systems ROS Statement: Those systems with pertinent positive or pertinent negative responses have been documented in the HPI. ROS Other: All systems not noted in ROS Statement are negative. Past Medical History Past Medical History: Fibromyalgia, Thyroid Disorder Additional Past Medical History / Comment(s): DDD, bulging discs, neuropathy in legs, thyroid nodules, anemia, environmental allergies, constipation/diarrhea, IBS diagnosed in 2019, chronic gastritis. History of Any Multi-Drug Resistant Organisms: None Reported Past Surgical History: Hysterectomy, Orthopedic Surgery Additional Past Surgical History / Comment(s): Right wrist and forearm surgery, D&C, mass on vocal cords - surgery and biopsy. Past Anesthesia/Blood Transfusion Reactions: Postoperative Nausea & Vomiting (PONV) Additional Past Anesthesia/Blood Transfusion Reaction / Comment(s): Constipation post-op. Past Psychological History: Anxiety Smoking Status: Former smoker, Vaper Past Alcohol Use History: None Reported Past Drug Use History: Marijuana - Past Family History Mother Family Medical History: No Reported History Father Family Medical History: COPD Additional Family Medical History / Comment(s): "Cardiovascular swelling". General Exam Limitations: no limitations General appearance: alert, in no apparent distress Head exam: Present: atraumatic, normocephalic, normal inspection Eye exam: Present: normal appearance, PERRL, EOMI. Absent: scleral icterus, conjunctival injection, periorbital swelling Course Vital Signs 08/18/23 08/18/23 08/18/23 14:22 14:23 18:33 Temperature 98 F Pulse Rate 88 Respiratory 18 18 18 Rate Blood Pressure 167/88 181/112 110/81 O2 Sat by Pulse 98 99 95 Oximetry 08/18/23 20:35 Temperature Pulse Rate Respiratory 18 Rate Blood Pressure 136/98 O2 Sat by Pulse 99 Oximetry Medical Decision Making - Medical Decision Making Was pt. sent in by a medical professional or institution ([facility], TECHNOLOGY ASSISTANT, urgent care, hospital, or retirement...) When possible be specific @ -No Did you speak to anyone other than the patient for history (EMS, parent, family, police, friend...)? What history was obtained from this source @ -No Did you review nursing and triage notes (agree or disagree)? Why? @ -I reviewed and agree with nursing and triage notes Were old charts reviewed (outside hosp., previous admission, EMS record, old EKG, old radiological studies, urgent care reports/EKG's, retirement records)? Report findings @ -No old charts were reviewed Differential Diagnosis (chest pain, altered mental status, abdominal pain women, abdominal pain men, vaginal bleeding, weakness, fever, dyspnea, syncope, headache, dizziness, GI bleed, back pain, seizure, CVA, palpatations, mental health, musculoskeletal)? @ -Differential Abdominal Pain Women: Appendicitis, Cholecystitis, diverticulosis, ischemic bowel, pancreatitis, hepatitis, UTI, gastroenteritis, AAA, incarcerated hernia, bowel obstruction, constipation, inflammatory bowel, hepatitis, peptic ulcer disease, splenic infarction, perforated viscus, vulvitis, ovarian torsion, PID, kidney stone, placenta abruption, this is not meant to be an all-inclusive list EKG interpreted by me (3pts min.). @ -None X-rays interpreted by me (1pt min.). @ -None done CT interpreted by me (1pt min.). @ -None done U/S interpreted by me (1pt. min.). @ -None done What testing was considered but not performed or refused? (CT, X-rays, U/S, labs)? Why? @ -None What meds were considered but not given or refused? Why? @ -None Did you discuss the management of the patient with other professionals (professionals i.e. , PA, TECHNOLOGY ASSISTANT, lab, RT, psych nurse, 7th grade social studies teacher, dentofacial orthopedics dentist, teacher, youth officer, case supervisor)? Give summary @ -No Was smoking cessation discussed for >3mins.? @ -No Was critical care preformed (if so, how long)? @ -No Were there social determinants of health that impacted care today? How? (Homelessness, low income, unemployed, alcoholism, drug addiction, transportation, low edu. Level, literacy, decrease access to med. care, [facility], rehab)? @ -No Was there de-escalation of care discussed even if they declined (Discuss DNR or withdrawal of care, Hospice)? DNR status @ -No What co-morbidities impacted this encounter? (DM, HTN, Smoking, COPD, CAD, Cancer, CVA, ARF, Chemo, Hep., AIDS, mental health diagnosis, sleep apnea, morbid obesity)? @ -None Was patient admitted / discharged? Hospital course, mention meds given and route, prescriptions, significant lab abnormalities, going to OR and other pertinent info. @ -Discharged. Patient presented to the emergency department for evaluation of nausea and vomiting. Patient does have a history of episodes of vomiting. At that time she typically develops leukocytosis secondary to dehydration and vomiting.Laboratory studies obtained showed WBC 18.1, hemoglobin 15.2: CMP shows sodium 141, potassium 4.3, creatinine 0.83, calcium 11.1, corrected calcium 9.8, patient has mild transaminitis which is typical of these episodes. UA shows 1+ protein, 2+ ketones. Patient was hydrated with 2 L of normal saline and given IV Zofran patient continued to have symptoms following this and was given Reglan followed by Compazine. Patient was feeling much better after this regimen. Patient would like to be discharged home. Discussed strict return precautions with patient. Patient understanding and agreeable with plan. Patient stable at time of discharge. Case discussed with Dr. Vickers Undiagnosed new problem with uncertain prognosis? @ -No Drug Therapy requiring intensive monitoring for toxicity (Heparin, Nitro, Insulin, Cardizem)? @ -No Were any procedures done? @ -No Diagnosis/symptom? @ -Nausea and vomiting Acute, or Chronic, or Acute on Chronic? @ -Acute Uncomplicated (without systemic symptoms) or Complicated (systemic symptoms)? @ -Uncomplicated Side effects of treatment? @ -No Exacerbation, Progression, or Severe Exacerbation? @ -No Poses a threat to life or bodily function? How? (Chest pain, USA, IA, pneumonia, PE, COPD, DKA, ARF, appy, cholecystitis, CVA, Diverticulitis, Homicidal, Suicidal, threat to staff... and all critical care pts) @ -No - Lab Data Result diagrams: 08/18/23 15:34 08/18/23 15:34 Lab Results 08/18/23 08/18/23 08/18/23 Range/Units 15:34 15:34 15:34 WBC 18.1 H (3.8-10.6) k/uL RBC 5.02 (3.80-5.40) m/uL Hgb 15.2 (11.4-16.0) gm/dL Hct 43.6 (34.0-46.0) % MCV 86.8 (80.0-100.0) fL MCH 30.2 (25.0-35.0) pg MCHC 34.8 (31.0-37.0) g/dL RDW 13.2 (11.5-15.5) % Plt Count 315 (150-450) k/uL MPV 9.0 Neutrophils % 81 % Lymphocytes % 12 % Monocytes % 6 % Eosinophils % 0 % Basophils % 0 % Neutrophils # 14.7 H (1.3-7.7) k/uL Lymphocytes # 2.2 (1.0-4.8) k/uL Monocytes # 1.1 H (0-1.0) k/uL Eosinophils # 0.1 (0-0.7) k/uL Basophils # 0.1 (0-0.2) k/uL Sodium 141 (137-145) mmol/L Potassium 4.3 (3.5-5.1) mmol/L Chloride 99 (98-107) mmol/L Carbon Dioxide 20 L (22-30) mmol/L Anion Gap 22 mmol/L BUN 20 H (7-17) mg/dL Creatinine 0.83 (0.52-1.04) mg/dL Est GFR (CKD-EPI)AfAm >90 (>60 ml/min/1.73 sqM) Est GFR (CKD-EPI)NonAf 87 (>60 ml/min/1.73 sqM) Glucose 111 H (74-99) mg/dL Plasma Lactic Acid Zaid (0.7-2.0) mmol/L Calcium 11.1 H (8.4-10.2) mg/dL Total Bilirubin 1.1 (0.2-1.3) mg/dL AST 43 H (14-36) U/L ALT 41 H (4-34) U/L Alkaline Phosphatase 115 (38-126) U/L Total Protein 9.9 H (6.3-8.2) g/dL Albumin 5.6 H (3.5-5.0) g/dL Amylase 73 (30-110) U/L Lipase 56 (23-300) U/L Urine Color Yellow Urine Appearance Clear (Clear) Urine pH 6.0 (5.0-8.0) Ur Specific [place] 1.027 (1.001-1.035) Urine Protein 1+ H (Negative) Urine Glucose (UA) Negative (Negative) Urine Ketones 2+ H (Negative) Urine Blood Trace H (Negative) Urine Nitrite Negative (Negative) Urine Bilirubin Negative (Negative) Urine Urobilinogen <2.0 (<2.0) mg/dL Ur Leukocyte Esterase Negative (Negative) Urine RBC 2 (0-5) /hpf Urine WBC 2 (0-5) /hpf Ur Squamous Epith Cells 1 (0-4) /hpf Urine Mucus Many H (None) /hpf Urine HCG, Qual (Not Detectd) Influenza Type A (PCR) (Not Detectd) Influenza Type B (PCR) (Not Detectd) RSV (PCR) (Not Detectd) SARS-CoV-2 (PCR) (Not Detectd) 08/18/23 08/18/23 08/18/23 Range/Units 15:34 15:34 19:45 WBC (3.8-10.6) k/uL RBC (3.80-5.40) m/uL Hgb (11.4-16.0) gm/dL Hct (34.0-46.0) % MCV (80.0-100.0) fL MCH (25.0-35.0) pg MCHC (31.0-37.0) g/dL RDW (11.5-15.5) % Plt Count (150-450) k/uL MPV Neutrophils % % Lymphocytes % % Monocytes % % Eosinophils % % Basophils % % Neutrophils # (1.3-7.7) k/uL Lymphocytes # (1.0-4.8) k/uL Monocytes # (0-1.0) k/uL Eosinophils # (0-0.7) k/uL Basophils # (0-0.2) k/uL Sodium (137-145) mmol/L Potassium (3.5-5.1) mmol/L Chloride (98-107) mmol/L Carbon Dioxide (22-30) mmol/L Anion Gap mmol/L BUN (7-17) mg/dL Creatinine (0.52-1.04) mg/dL Est GFR (CKD-EPI)AfAm (>60 ml/min/1.73 sqM) Est GFR (CKD-EPI)NonAf (>60 ml/min/1.73 sqM) Glucose (74-99) mg/dL Plasma Lactic Acid Zaid 2.0 (0.7-2.0) mmol/L Calcium (8.4-10.2) mg/dL Total Bilirubin (0.2-1.3) mg/dL AST (14-36) U/L ALT (4-34) U/L Alkaline Phosphatase (38-126) U/L Total Protein (6.3-8.2) g/dL Albumin (3.5-5.0) g/dL Amylase (30-110) U/L Lipase (23-300) U/L Urine Color Urine Appearance (Clear) Urine pH (5.0-8.0) Ur Specific [place] (1.001-1.035) Urine Protein (Negative) Urine Glucose (UA) (Negative) Urine Ketones (Negative) Urine Blood (Negative) Urine Nitrite (Negative) Urine Bilirubin (Negative) Urine Urobilinogen (<2.0) mg/dL Ur Leukocyte Esterase (Negative) Urine RBC (0-5) /hpf Urine WBC (0-5) /hpf Ur Squamous Epith Cells (0-4) /hpf Urine Mucus (None) /hpf Urine HCG, Qual Not Detected (Not Detectd) Influenza Type A (PCR) Not Detected (Not Detectd) Influenza Type B (PCR) Not Detected (Not Detectd) RSV (PCR) Not Detected (Not Detectd) SARS-CoV-2 (PCR) Not Detected (Not Detectd) Disposition Clinical Impression: Nausea and vomiting Disposition: HOME SELF-CARE Condition: Stable Instructions (If sedation given, give patient instructions): Acute Nausea and Vomiting (ED) Additional Instructions: Please follow up with your primary care provider. Return to the emergency department for new or worsening symptoms. Is patient prescribed a controlled substance at d/c from ED?: No Referrals: Digna Alonso MD [Primary Care Provider] - 1-2 days
[2023-08-18] MEDS ORDERED: ONDANSETRON 4 MG/2 ML VIAL IVP STA (15:49)
[2023-08-18] MEDS ORDERED: SODIUM CHLORIDE 0.9% 1,000 ML IV ONE ×2 (15:49→18:06)
[2023-08-18 15:53] LABS: ALT 41 U/L (4-34); AST 43 U/L (14-36); African American GFR (CKD) >90 (>60 ml/min/1.73 sqM); Albumin 5.6 g/dL (3.5-5.0); Alkaline Phosphatase 115 U/L (38-126); Amylase 73 U/L (30-110); Anion Gap 22 mmol/L; Blood Urea Nitrogen 20 mg/dL (7-17); Calcium 11.1 mg/dL (8.4-10.2); Carbon Dioxide 20 mmol/L (22-30); Chloride 99 mmol/L (98-107); Glucose 111 mg/dL (74-99); Lipase 56 U/L (23-300); Non-African American GFR(CKD) 87 (>60 ml/min/1.73 sqM); Sodium 141 mmol/L (137-145); Total Bilirubin 1.1 mg/dL (0.2-1.3); Total Protein 9.9 g/dL (6.3-8.2)
[2023-08-18 16:02] LABS: Potassium 4.3 mmol/L (3.5-5.1)
[2023-08-18 16:06] LABS: Basophils # (A) 0.1 k/uL (0-0.2); Basophils % (A) 0 %; Eosinophils # (A) 0.1 k/uL (0-0.7); Eosinophils % (A) 0 %; HCT 43.6 % (34.0-46.0); HGB 15.2 gm/dL (11.4-16.0); Lymphocytes # (A) 2.2 k/uL (1.0-4.8); Lymphocytes % (A) 12 %; MCH 30.2 pg (25.0-35.0); MCHC 34.8 g/dL (31.0-37.0); MCV 86.8 fL (80.0-100.0); Monocytes # (A) 1.1 k/uL (0-1.0); Monocytes % (A) 6 %; Neutrophils # (A) 14.7 k/uL (1.3-7.7); Neutrophils % (A) 81 %; Platelet Count 315 k/uL (150-450); RBC 5.02 m/uL (3.80-5.40); RDW 13.2 % (11.5-15.5); WBC 18.1 k/uL (3.8-10.6)
[2023-08-18 16:47] LABS: Appearance,Urine Clear (Clear); Bilirubin,Urine Negative (Negative); Blood,Urine Trace (Negative); Color,Urine Yellow; Glucose,Urine (UA) Negative (Negative); Ketones,Urine 2+ (Negative); Leukocyte Esterase,Urine Negative (Negative); Mucus,Urine Many /hpf; Nitrite,Urine Negative (Negative); Protein,Urine 1+ (Negative); RBC,Urine 2 /hpf (0-5); Specific Gravity,Urine 1.027 (1.001-1.035); Squamous Epithelial Cell,Urine 1 /hpf (0-4); Urobilinogen,Urine <2.0 mg/dL (<2.0); WBC,Urine 2 /hpf (0-5)
[2023-08-18] MEDS ORDERED: METOCLOPRAMIDE 5 MG/ML 2 ML VIAL IVP STA (17:17)
[2023-08-18] MEDS ORDERED: MORPHINE SULFATE 4 MG/ML SYRINGE IVP STA (17:17)
[2023-08-18] MEDS ORDERED: PROCHLORPERAZINE INJ 10 MG/2 ML VIAL IVP STA (18:47)
[2023-08-18 20:41] VITALS: BP 136/98
== END 2023-08-18 20:38 | disposition home or self-care (01) ==
LOC: EC 14:15
DX: R11.2 Nausea with vomiting, unspecified (principal); F12.90 Cannabis use, unspecified, uncomplicated; F17.290 Nicotine dependence, other tobacco product, uncomplicated; Z86.59 Personal history of other mental and behavioral disorders; Z88.8 Allergy status to other drugs, medicaments and biological substances; Z20.822 Contact with and (suspected) exposure to COVID-19
CPT/HCPCS: 36415; 80053; 82150; 83605; 83690; 85025; 81001; 81025; 87636; 99284; 96374; 96375 ×3; 96361; J2270; J0780; J2765; J2405

== ENCOUNTER → 2023-09-27 | Outpatient (CLI) | payer MEDICARE, OTHER ==
--- NOTE | 2023-09-28 09:08 | MM ---
Reason for Exam: Screening (asymptomatic). Last mammogram was performed 5 year(s) and 1 month(s) ago. Patient History: Menarche at age 11. First Full-Term at age 18. Left ovary removed at age 37. Right ovary removed at age 37. Hysterectomy at age 37. Postmenopausal. Estrogen for 6 months. Paternal grandmother had breast cancer. Paternal aunt had breast cancer. Paternal aunt had breast cancer. Paternal aunt had breast cancer. Risk Values: Lizeth 5 year model risk: 0.7%. NCI Lifetime model risk: 8.6%. Prior Study Comparison: 09/23/2018 Bilateral Screening Mammogram, [facility]. Tissue Density: The breast tissue is heterogeneously dense. This may lower the sensitivity of mammography. Findings: Analyzed By CAD. There is no suspicious group of microcalcifications or new suspicious mass in either breast. Overall Assessment: Negative, BI-RAD 1 Management: Screening Mammogram of both breasts in 1 year. . Patient should continue monthly self-breast exams. A clinical breast exam by your physician is recommended on an annual basis. This exam should not preclude additional follow-up of suspicious palpable abnormalities. Note on Lizeth scores and lifetime risk: 1. A Lizeth score greater than 3% is considered moderate risk. If this is the case, consider specialist referral to assess eligibility for a risk reducing agent. 2. If overall lifetime risk for the development of breast cancer is 20% or higher, the patient may qualify for future screening with alternating mammogram and breast MRI. Electronically signed and approved by: Trevor Ly M.D. Radiologis
== END | disposition home or self-care (01) ==
LOC: RADMAMWWP 15:10
PROVIDERS: ATTEND Family Medicine
DX: Z12.31 Encounter for screening mammogram for malignant neoplasm of breast (principal); Z80.3 Family history of malignant neoplasm of breast; Z78.0 Asymptomatic menopausal state
CPT/HCPCS: 77063; 77067

== ENCOUNTER 2023-10-14 09:34 | Emergency (ER) | payer MEDICARE, OTHER ==
--- NOTE | 2023-10-14 09:55 | ED ---
Nausea/Vomiting/Diarrhea HPI - General Chief complaint: Nausea/Vomiting/Diarrhea Stated complaint: IBS Time Seen by Provider: 10/14/23 09:39 Source: patient, RN notes reviewed Mode of arrival: ambulatory Limitations: no limitations - History of Present Illness Initial comments: This is a 43-year-old female who presents to the emergency department for nausea and vomiting. States that this started yesterday. Reports a history of IBS and states that she is probably having a flareup. She has minor abdominal pain from all of the vomiting. She did develop some diarrhea as well. She takes Bentyl, Protonix, promethazine, and Zofran at home. The nausea medications at home have not been controlling her symptoms. Also states that she has not been able to keep down her Castella, which she takes for chronic back pain, and is worried about going through withdrawals. MD complaint: nausea, vomiting, diarrhea Onset/Timin -: days(s) - Related Data Home Medications Medication Instructions Recorded Confirmed HYDROcodone/APAP 10-325MG [Castella 1 tab PO QID 04/03/17 08/18/23 10-325] Ergocalciferol (Vitamin D2) 1,250 mcg PO WE 09/18/22 08/18/23 [Drisdol (50,000 Iu)] Amitriptyline HCl [Elavil] 25 mg PO HS 07/08/23 08/18/23 Dicyclomine [Bentyl] 20 mg PO QID PRN 07/08/23 08/18/23 Promethazine [Phenergan] 12.5 mg PO DAILY 07/08/23 08/18/23 polyethylene glycoL 3350 [Miralax] 17 gm PO DAILY PRN 08/18/23 08/18/23 Previous Rx's Medication Instructions Recorded Ondansetron Odt [Zofran Odt] 4 mg PO Q8HR PRN #20 tab 07/11/23 Pantoprazole Sodium [Protonix] 40 mg PO BID PRN #60 tab 07/11/23 Ondansetron Odt [Zofran Odt] 4 mg PO Q8HR PRN #30 tab 10/14/23 Promethazine Suppository 25 mg RECTAL QID PRN #30 supp 10/14/23 [Phenergan] Allergies Allergy/AdvReac Type Severity Reaction Status Date / Time propoxyphene Allergy Rash/Hives Verified 10/14/23 09:38 [From Ray-Sumit] Review of Systems ROS Statement: Those systems with pertinent positive or pertinent negative responses have been documented in the HPI. ROS Other: All systems not noted in ROS Statement are negative. Past Medical History Past Medical History: Fibromyalgia, Thyroid Disorder Additional Past Medical History / Comment(s): DDD, bulging discs, neuropathy in legs, thyroid nodules, anemia, environmental allergies, constipation/diarrhea, IBS diagnosed in 2019, chronic gastritis. History of Any Multi-Drug Resistant Organisms: None Reported Past Surgical History: Hysterectomy, Orthopedic Surgery Additional Past Surgical History / Comment(s): Right wrist and forearm surgery, D&C, mass on vocal cords - surgery and biopsy. Past Anesthesia/Blood Transfusion Reactions: Postoperative Nausea & Vomiting (PONV) Additional Past Anesthesia/Blood Transfusion Reaction / Comment(s): Constipation post-op. Past Psychological History: Anxiety Smoking Status: Former smoker, Vaper Past Alcohol Use History: None Reported Past Drug Use History: Marijuana - Past Family History Mother Family Medical History: No Reported History Father Family Medical History: COPD Additional Family Medical History / Comment(s): "Cardiovascular swelling". General Exam Limitations: no limitations General appearance: alert, in no apparent distress Head exam: Present: atraumatic, normocephalic, normal inspection Respiratory exam: Present: normal lung sounds bilaterally. Absent: respiratory distress, wheezes, rales, rhonchi, stridor Cardiovascular Exam: Present: regular rate, normal rhythm, normal heart sounds. Absent: systolic murmur, diastolic murmur, rubs, gallop, clicks GI/Abdominal exam: Present: soft, normal bowel sounds. Absent: distended, tenderness, guarding, rebound, rigid Neurological exam: Present: alert, oriented X3, CN II-XII intact Psychiatric exam: Present: normal affect, normal mood Skin exam: Present: warm, dry, intact, normal color. Absent: rash Course Vital Signs 10/14/23 10/14/23 10/14/23 09:35 11:25 12:42 Temperature 98.7 F Pulse Rate 100 78 95 Respiratory 22 18 18 Rate Blood Pressure 151/94 130/80 144/85 O2 Sat by Pulse 100 98 100 Oximetry 10/14/23 10/14/23 15:35 15:59 Temperature 98.1 F Pulse Rate 75 76 Respiratory 18 18 Rate Blood Pressure 105/68 105/65 O2 Sat by Pulse 98 97 Oximetry Medical Decision Making - Medical Decision Making This is a 43-year-old female who presents to the emergency department for nausea and vomiting. Was pt. sent in by a medical professional or institution? @ -No Did you speak to anyone other than the patient for history? @ -No Did you review nursing and triage notes? @ -Yes, and I agree, it is accurate with regards to the patient's symptoms. Were old charts reviewed? @ -No Differential Diagnosis? @ -Differential Nausea and Vomiting: Gastroenteritis, cholecystitis, appendicitis, pancreatitis, migraine, benign positional vertigo, food borne illness, pyelonephritis, irritable bowel syndrome, influenza, Covid, GERD, incarcerated hernia, intestinal obstruction, t his is not meant to be an all-inclusive list. EKG interpreted by me (3pts min.)? @ -Not obtained X-rays interpreted by me (1pt min.)? @ -Not obtained CT interpreted by me (1pt min.)? @ -Not obtained U/S interpreted by me (1pt. min.)? @ -Not obtained What testing was considered but not performed? (CT, X-rays, U/S, labs)? Why? @ -None What meds were considered but not given? Why? @ -None Did you discuss the management of the patient with other professionals? @ -No Did you reconcile home meds? @ -No Was smoking cessation discussed for >3mins.? @ -No Was critical care preformed (if so, how long)? @ -No Were there social determinants of health that impacted care today? How? (Home lessness, low income, unemployed, alcoholism, drug addiction, transportation, low edu. Level, literacy, decrease access to med. care, fci, rehab)? @ -No Was there de-escalation of care discussed even if they declined? (Discuss DNR or withdrawal of care, Hospice)? @ -No What co-morbidities impacted this encounter? (DM, HTN, Smoking, COPD, CAD, Cancer, CVA, Hep., AIDS, mental health diagnosis, sleep apnea, morbid obesity)? @ -IBS Was patient admitted / discharged? @ -Discharged. Lab work obtained revealing leukocytosis and mildly elevated liver enzymes, both of which are very common for the patient during IBS flareups, and likely reactive. Given the lack of localized abdominal pain and because leukocytosis is common for the patient during these episodes, she declined any imaging in the emergency department. Lab work also reveals mildly elevated lactic acid, likely related to dehydration. Covid, influenza, and RSV testing were negative. Patient was treated with IV fluids and required several antiemetics, however her nausea was eventually well controlled and she was tolerating oral intake. At that point, she felt stable for discharge home. Refill on Zofran was provided. Discussed the possibility of Phenergan suppositories as opposed to the oral medication, which she was in agreement with trying. Prescription for these were provided as well. Patient discharged home in stable condition. Advised to slowly advance her diet as tolerated and remain well-hydrated. Undiagnosed new problem with uncertain prognosis? @ -None Drug Therapy requiring intensive monitoring for toxicity (Heparin, Nitro, Insulin, Cardizem)? @ -None Were any procedures done? @ -None Diagnosis/symptom? @ -Nausea and vomiting Acute, or Chronic, or Acute on Chronic? @ -Acute Uncomplicated (without systemic symptoms) or Complicated (systemic symptoms)? @ -Uncomplicated Side effects of treatment? @ -None Exacerbation, Progression, or Severe Exacerbation] @ -Not applicable Poses a threat to life or bodily function? @ -No Return precautions reviewed in depth, the patient is instructed to return to the emergency department with any new, worsening, or concerning symptoms. Patient verbalized understanding. This case was discussed in detail with the attending ED physician, Dr. Thapa. Presentation, findings, and treatment plan discussed in detail as well. - Lab Data Result diagrams: 10/14/23 09:54 10/14/23 09:54 Lab Results 10/14/23 10/14/23 10/14/23 Range/Units 09:54 09:54 09:54 WBC 23.6 H (3.8-10.6) k/uL RBC 4.92 (3.80-5.40) m/uL Hgb 14.7 (11.4-16.0) gm/dL Hct 42.0 (34.0-46.0) % MCV 85.3 (80.0-100.0) fL MCH 29.9 (25.0-35.0) pg MCHC 35.1 (31.0-37.0) g/dL RDW 13.4 (11.5-15.5) % Plt Count 307 (150-450) k/uL MPV 8.1 Neutrophils % 88 % Lymphocytes % 7 % Monocytes % 4 % Eosinophils % 1 % Basophils % 0 % Neutrophils # 20.7 H (1.3-7.7) k/uL Lymphocytes # 1.6 (1.0-4.8) k/uL Monocytes # 0.9 (0-1.0) k/uL Eosinophils # 0.2 (0-0.7) k/uL Basophils # 0.1 (0-0.2) k/uL Sodium 139 (137-145) mmol/L Potassium 4.0 (3.5-5.1) mmol/L Chloride 101 (98-107) mmol/L Carbon Dioxide 20 L (22-30) mmol/L Anion Gap 18 mmol/L BUN 23 H (7-17) mg/dL Creatinine 0.80 (0.52-1.04) mg/dL Est GFR (CKD-EPI)AfAm >90 (>60 ml/min/1.73 sqM) Est GFR (CKD-EPI)NonAf 90 (>60 ml/min/1.73 sqM) Glucose 128 H (74-99) mg/dL Lactic Ac Sepsis Rflx Plasma Lactic Acid Zaid (0.7-2.0) mmol/L Calcium 11.5 H (8.4-10.2) mg/dL Total Bilirubin 0.9 (0.2-1.3) mg/dL AST 52 H (14-36) U/L ALT 42 H (4-34) U/L Alkaline Phosphatase 133 H (38-126) U/L Total Protein 9.9 H (6.3-8.2) g/dL Albumin 5.7 H (3.5-5.0) g/dL Amylase 68 (30-110) U/L Lipase 39 (23-300) U/L Urine Color Urine Appearance (Clear) Urine pH (5.0-8.0) Ur Specific [place] (1.001-1.035) Urine Protein (Negative) Urine Glucose (UA) (Negative) Urine Ketones (Negative) Urine Blood (Negative) Urine Nitrite (Negative) Urine Bilirubin (Negative) Urine Urobilinogen (<2.0) mg/dL Ur Leukocyte Esterase (Negative) Urine RBC (0-5) /hpf Urine WBC (0-5) /hpf Ur Squamous Epith Cells (0-4) /hpf Hyaline Casts (0-2) /lpf Urine Mucus (None) /hpf Urine Opiates Screen (NotDetected) Ur Oxycodone Screen (NotDetected) Urine Methadone Screen (NotDetected) Ur Barbiturates Screen (NotDetected) U Tricyclic Antidepress (NotDetected) Ur Phencyclidine Scrn (NotDetected) Ur Amphetamines Screen (NotDetected) U Methamphetamines Scrn (NotDetected) U Benzodiazepines Scrn (NotDetected) Urine Cocaine Screen (NotDetected) U Marijuana (THC) Screen (NotDetected) Influenza Type A (PCR) Not Detected (Not Detectd) Influenza Type B (PCR) Not Detected (Not Detectd) RSV (PCR) Not Detected (Not Detectd) SARS-CoV-2 (PCR) Not Detected (Not Detectd) 10/14/23 10/14/23 10/14/23 Range/Units 09:54 10:58 11:00 WBC (3.8-10.6) k/uL RBC (3.80-5.40) m/uL Hgb (11.4-16.0) gm/dL Hct (34.0-46.0) % MCV (80.0-100.0) fL MCH (25.0-35.0) pg MCHC (31.0-37.0) g/dL RDW (11.5-15.5) % Plt Count (150-450) k/uL MPV Neutrophils % % Lymphocytes % % Monocytes % % Eosinophils % % Basophils % % Neutrophils # (1.3-7.7) k/uL Lymphocytes # (1.0-4.8) k/uL Monocytes # (0-1.0) k/uL Eosinophils # (0-0.7) k/uL Basophils # (0-0.2) k/uL Sodium (137-145) mmol/L Potassium (3.5-5.1) mmol/L Chloride (98-107) mmol/L Carbon Dioxide (22-30) mmol/L Anion Gap mmol/L BUN (7-17) mg/dL Creatinine (0.52-1.04) mg/dL Est GFR (CKD-EPI)AfAm (>60 ml/min/1.73 sqM) Est GFR (CKD-EPI)NonAf (>60 ml/min/1.73 sqM) Glucose (74-99) mg/dL Lactic Ac Sepsis Rflx Y Plasma Lactic Acid Zaid 2.2 H* (0.7-2.0) mmol/L Calcium (8.4-10.2) mg/dL Total Bilirubin (0.2-1.3) mg/dL AST (14-36) U/L ALT (4-34) U/L Alkaline Phosphatase (38-126) U/L Total Protein (6.3-8.2) g/dL Albumin (3.5-5.0) g/dL Amylase (30-110) U/L Lipase (23-300) U/L Urine Color Light Yellow Urine Appearance Clear (Clear) Urine pH 7.0 (5.0-8.0) Ur Specific [place] 1.018 (1.001-1.035) Urine Protein 1+ H (Negative) Urine Glucose (UA) Negative (Negative) Urine Ketones 2+ H (Negative) Urine Blood Small H (Negative) Urine Nitrite Negative (Negative) Urine Bilirubin Negative (Negative) Urine Urobilinogen <2.0 (<2.0) mg/dL Ur Leukocyte Esterase Negative (Negative) Urine RBC 1 (0-5) /hpf Urine WBC 5 (0-5) /hpf Ur Squamous Epith Cells 2 (0-4) /hpf Hyaline Casts 1 (0-2) /lpf Urine Mucus Few H (None) /hpf Urine Opiates Screen (NotDetected) Ur Oxycodone Screen (NotDetected) Urine Methadone Screen (NotDetected) Ur Barbiturates Screen (NotDetected) U Tricyclic Antidepress (NotDetected) Ur Phencyclidine Scrn (NotDetected) Ur Amphetamines Screen (NotDetected) U Methamphetamines Scrn (NotDetected) U Benzodiazepines Scrn (NotDetected) Urine Cocaine Screen (NotDetected) U Marijuana (THC) Screen (NotDetected) Influenza Type A (PCR) (Not Detectd) Influenza Type B (PCR) (Not Detectd) RSV (PCR) (Not Detectd) SARS-CoV-2 (PCR) (Not Detectd) 10/14/23 Range/Units 11:00 WBC (3.8-10.6) k/uL RBC (3.80-5.40) m/uL Hgb (11.4-16.0) gm/dL Hct (34.0-46.0) % MCV (80.0-100.0) fL MCH (25.0-35.0) pg MCHC (31.0-37.0) g/dL RDW (11.5-15.5) % Plt Count (150-450) k/uL MPV Neutrophils % % Lymphocytes % % Monocytes % % Eosinophils % % Basophils % % Neutrophils # (1.3-7.7) k/uL Lymphocytes # (1.0-4.8) k/uL Monocytes # (0-1.0) k/uL Eosinophils # (0-0.7) k/uL Basophils # (0-0.2) k/uL Sodium (137-145) mmol/L Potassium (3.5-5.1) mmol/L Chloride (98-107) mmol/L Carbon Dioxide (22-30) mmol/L Anion Gap mmol/L BUN (7-17) mg/dL Creatinine (0.52-1.04) mg/dL Est GFR (CKD-EPI)AfAm (>60 ml/min/1.73 sqM) Est GFR (CKD-EPI)NonAf (>60 ml/min/1.73 sqM) Glucose (74-99) mg/dL Lactic Ac Sepsis Rflx Plasma Lactic Acid Zaid (0.7-2.0) mmol/L Calcium (8.4-10.2) mg/dL Total Bilirubin (0.2-1.3) mg/dL AST (14-36) U/L ALT (4-34) U/L Alkaline Phosphatase (38-126) U/L Total Protein (6.3-8.2) g/dL Albumin (3.5-5.0) g/dL Amylase (30-110) U/L Lipase (23-300) U/L Urine Color Urine Appearance (Clear) Urine pH (5.0-8.0) Ur Specific [place] (1.001-1.035) Urine Protein (Negative) Urine Glucose (UA) (Negative) Urine Ketones (Negative) Urine Blood (Negative) Urine Nitrite (Negative) Urine Bilirubin (Negative) Urine Urobilinogen (<2.0) mg/dL Ur Leukocyte Esterase (Negative) Urine RBC (0-5) /hpf Urine WBC (0-5) /hpf Ur Squamous Epith Cells (0-4) /hpf Hyaline Casts (0-2) /lpf Urine Mucus (None) /hpf Urine Opiates Screen Detected H (NotDetected) Ur Oxycodone Screen Not Detected (NotDetected) Urine Methadone Screen Not Detected (NotDetected) Ur Barbiturates Screen Not Detected (NotDetected) U Tricyclic Antidepress Not Detected (NotDetected) Ur Phencyclidine Scrn Not Detected (NotDetected) Ur Amphetamines Screen Not Detected (NotDetected) U Methamphetamines Scrn Not Detected (NotDetected) U Benzodiazepines Scrn Not Detected (NotDetected) Urine Cocaine Screen Not Detected (NotDetected) U Marijuana (THC) Screen Detected H (NotDetected) Influenza Type A (PCR) (Not Detectd) Influenza Type B (PCR) (Not Detectd) RSV (PCR) (Not Detectd) SARS-CoV-2 (PCR) (Not Detectd) Disposition Clinical Impression: Nausea and vomiting Disposition: HOME SELF-CARE Instructions (If sedation given, give patient instructions): Acute Nausea and Vomiting (ED) Additional Instructions: Return to the emergency department with any new, worsening, or concerning symptoms. You can take the Zofran up to every 8 hours as needed for nausea and vomiting. You can try using the promethazine suppositories as opposed to the pills up to 4 times daily to see if they are more effective, as you do not have to keep them down orally. Slowly advance your diet as tolerated and remain well-hydrated. Follow up with your primary care provider in 1-2 days. Prescriptions: Promethazine Suppository [Phenergan] 25 mg RECTAL QID PRN #30 supp PRN Reason: Nausea And Vomiting Ondansetron Odt [Zofran Odt] 4 mg PO Q8HR PRN #30 tab PRN Reason: Nausea And Vomiting Is patient prescribed a controlled substance at d/c from ED?: No Referrals: Cynthia Fox MD [Primary Care Provider] - 1-2 days Time of Disposition: 13:35
[2023-10-14] MEDS: SCOPOLAMINE 1 MG/72 HR PATCH TRANSDERM STA (10:02)
[2023-10-14] MEDS: SODIUM CHLORIDE 0.9% 1,000 ML IV STA (10:02)
[2023-10-14] MEDS: ONDANSETRON 4 MG/2 ML VIAL IVP STA (10:04)
[2023-10-14 10:06] LABS: Basophils # (A) 0.1 k/uL (0-0.2); Basophils % (A) 0 %; Eosinophils # (A) 0.2 k/uL (0-0.7); Eosinophils % (A) 1 %; HGB 14.7 gm/dL (11.4-16.0); Lymphocytes # (A) 1.6 k/uL (1.0-4.8); Lymphocytes % (A) 7 %; MCH 29.9 pg (25.0-35.0); MCHC 35.1 g/dL (31.0-37.0); MCV 85.3 fL (80.0-100.0); Mean Platelet Volume 8.1; Monocytes # (A) 0.9 k/uL (0-1.0); Monocytes % (A) 4 %; Neutrophils # (A) 20.7 k/uL (1.3-7.7); Neutrophils % (A) 88 %; Platelet Count 307 k/uL (150-450); RBC 4.92 m/uL (3.80-5.40); RDW 13.4 % (11.5-15.5); WBC 23.6 k/uL (3.8-10.6)
[2023-10-14] MEDS: DICYCLOMINE 10 MG/ML 2 ML AMP IM STA (10:07)
[2023-10-14] MEDS: PANTOPRAZOLE 40 MG/10 ML VIAL IVP STA (10:10)
[2023-10-14 10:15] LABS: ALT 42 U/L (4-34); AST 52 U/L (14-36); African American GFR (CKD) >90 (>60 ml/min/1.73 sqM); Albumin 5.7 g/dL (3.5-5.0); Alkaline Phosphatase 133 U/L (38-126); Amylase 68 U/L (30-110); Anion Gap 18 mmol/L; Blood Urea Nitrogen 23 mg/dL (7-17); Calcium 11.5 mg/dL (8.4-10.2); Carbon Dioxide 20 mmol/L (22-30); Chloride 101 mmol/L (98-107); Glucose 128 mg/dL (74-99); Lipase 39 U/L (23-300); Non-African American GFR(CKD) 90 (>60 ml/min/1.73 sqM); Sodium 139 mmol/L (137-145); Total Bilirubin 0.9 mg/dL (0.2-1.3); Total Protein 9.9 g/dL (6.3-8.2)
[2023-10-14] MEDS: MORPHINE SULFATE 4 MG/ML SYRINGE IV STA (10:17)
[2023-10-14 11:31] VITALS: RESP 18
[2023-10-14 11:40] LABS: Amphetamine Screen,Urine Not Detected (NotDetected); Appearance,Urine Clear (Clear); Barbiturate Screen,Urine Not Detected (NotDetected); Benzodiazepines Screen,Urine Not Detected (NotDetected); Bilirubin,Urine Negative (Negative); Blood,Urine Small (Negative); Cocaine Screen,Urine Not Detected (NotDetected); Color,Urine Light Yellow; Glucose,Urine (UA) Negative (Negative); Hyaline Casts,Urine 1 /lpf (0-2); Ketones,Urine 2+ (Negative); Leukocyte Esterase,Urine Negative (Negative); Methadone Screen, Urine Not Detected (NotDetected); Mucus,Urine Few /hpf; Nitrite,Urine Negative (Negative); Opiate Screen,Urine Detected (NotDetected); Oxycodone Screen, Urine Not Detected (NotDetected); Phencyclidine Screen,Urine Not Detected (NotDetected); Protein,Urine 1+ (Negative); RBC,Urine 1 /hpf (0-5); Specific Gravity,Urine 1.018 (1.001-1.035); Squamous Epithelial Cell,Urine 2 /hpf (0-4); Tricyclic Antidepressant,Urine Not Detected (NotDetected); Urn Cannabinoid Scrn Detected (NotDetected); Urobilinogen,Urine <2.0 mg/dL (<2.0); WBC,Urine 5 /hpf (0-5)
[2023-10-14] MEDS: droPERidol 5 MG/2 ML VIAL IVP ONE (12:46)
[2023-10-14] MEDS: HYDROmorphone 0.5 MG/0.5 ML SYRINGE IVP STA (12:48)
[2023-10-14] MEDS: METOCLOPRAMIDE 5 MG/ML 2 ML VIAL IVP STA (13:42)
[2023-10-14 16:21] VITALS: BP 105/65; PULSE 76; TEMP 98.1
== END 2023-10-14 16:00 | disposition home or self-care (01) ==
LOC: EC 09:34
DX: R11.2 Nausea with vomiting, unspecified (principal); D72.829 Elevated white blood cell count, unspecified; R74.02 Elevation of levels of lactic acid dehydrogenase [LDH]; R74.01 Elevation of levels of liver transaminase levels; F41.9 Anxiety disorder, unspecified; F17.290 Nicotine dependence, other tobacco product, uncomplicated; F12.90 Cannabis use, unspecified, uncomplicated; Z20.822 Contact with and (suspected) exposure to COVID-19; Z79.899 Other long term (current) drug therapy; Z88.5 Allergy status to narcotic agent
CPT/HCPCS: 99284; 96374; 96375 ×5; 96361; 96372; 36415; 80053; 82150; 83605; 83690; 85025; 81001; 80306; 87636; J2270; J0500; J2765; J2405; C9113; J1170; J1790

== ENCOUNTER 2023-10-15 07:06 | Observation (INO) | payer MEDICARE, OTHER ==
[2023-10-15 08:13] LABS: Basophils % (A) 0 %; Eosinophils % (A) 0 %; HCT 41.7 % (34.0-46.0); HGB 13.9 gm/dL (11.4-16.0); Lymphocytes % (A) 19 %; MCH 28.6 pg (25.0-35.0); MCHC 33.4 g/dL (31.0-37.0); MCV 85.6 fL (80.0-100.0); Monocytes # (A) 0.5 k/uL (0-1.0); Monocytes % (A) 5 %; Neutrophils # (A) 8.1 k/uL (1.3-7.7); Neutrophils % (A) 75 %; Platelet Count 306 k/uL (150-450); RBC 4.88 m/uL (3.80-5.40); RDW 13.4 % (11.5-15.5); WBC 10.8 k/uL (3.8-10.6)
[2023-10-15] MEDS: METOCLOPRAMIDE 5 MG/ML 2 ML VIAL IVP STA (08:15)
[2023-10-15] MEDS: PANTOPRAZOLE 40 MG/10 ML VIAL IVP STA (08:16)
[2023-10-15] MEDS: SODIUM CHLORIDE 0.9% 1,000 ML IV STA ×2 (08:16→09:38)
[2023-10-15] MEDS: MORPHINE SULFATE 4 MG/ML SYRINGE IVP STA (08:16)
[2023-10-15 08:27] LABS: INR 0.9 (<1.2); Partial Thromboplastin Time 22.2 sec (22.0-30.0); Prothrombin Time 10.4 sec (10.0-12.5)
[2023-10-15 08:32] LABS: HCG,Qualitative Serum Not Detected
[2023-10-15 08:44] LABS: ALT 48 U/L (4-34); AST 63 U/L (14-36); African American GFR (CKD) >90 (>60 ml/min/1.73 sqM); Albumin 5.1 g/dL (3.5-5.0); Alkaline Phosphatase 117 U/L (38-126); Amylase 65 U/L (30-110); Anion Gap 16 mmol/L; Blood Urea Nitrogen 21 mg/dL (7-17); Calcium 10.2 mg/dL (8.4-10.2); Carbon Dioxide 18 mmol/L (22-30); Chloride 103 mmol/L (98-107); Glucose 122 mg/dL (74-99); Lipase 58 U/L (23-300); Non-African American GFR(CKD) 83 (>60 ml/min/1.73 sqM); Potassium 3.6 mmol/L (3.5-5.1); Sodium 137 mmol/L (137-145); Total Bilirubin 0.8 mg/dL (0.2-1.3); Total Protein 8.3 g/dL (6.3-8.2)
--- NOTE | 2023-10-15 08:48 | ED ---
General Adult HPI - General Chief complaint: Nausea/Vomiting/Diarrhea Stated complaint: Adominal Pain Time Seen by Provider: 10/15/23 07:31 Source: patient, RN notes reviewed, old records reviewed Mode of arrival: ambulatory Limitations: no limitations - History of Present Illness Initial comments: Patient is a 43-year-old female who presents emergency department complaining of continued abdominal pain, nausea, vomiting. Patient symptoms started last week. Has a history of irritable bowel syndrome and states this is pretty typical for her. States she went home after being seen on Sunday and felt improved yesterday, however presents today on Sunday for reevaluation as she still having pain with nausea and vomiting at this time. Denies any blood in her emesis. Denies any chest pain or shortness of breath. Endorses diffuse abdominal pain that is primarily in the lower quadrants. Has a history of a hysterectomy. States she is still having bowel movements and passing gas. Has no other acute complaints at this time. Denies any urinary complaints. Denies any fevers, chills, cough. - Related Data Home Medications Medication Instructions Recorded Confirmed HYDROcodone/APAP 10-325MG [[place] 1 tab PO TID PRN 04/03/17 10/15/23 10-325] Amitriptyline HCl [Elavil] 25 mg PO HS PRN 07/08/23 10/15/23 Dicyclomine [Bentyl] 20 mg PO QID PRN 07/08/23 10/15/23 Promethazine [Phenergan] 12.5 mg PO DAILY PRN 07/08/23 10/15/23 FLUoxetine HCL 20 mg PO DAILY 10/15/23 10/15/23 Naloxone HCl 4 mg NASAL DIRECTED PRN 10/15/23 10/15/23 Pantoprazole Sodium [Protonix] 40 mg PO AC-BID PRN 10/15/23 10/15/23 Previous Rx's Medication Instructions Recorded Ondansetron Odt [Zofran Odt] 4 mg PO Q8HR PRN #30 tab 10/14/23 Promethazine Suppository 25 mg RECTAL QID PRN #30 supp 10/14/23 [Phenergan] Allergies Allergy/AdvReac Type Severity Reaction Status Date / Time propoxyphene Allergy Rash/Hives Verified 10/15/23 11:35 [From Martha-N] Review of Systems ROS Statement: Those systems with pertinent positive or pertinent negative responses have been documented in the HPI. Review of Systems: CONST: Denies fever EYES: Denies blurry vision ENT: Denies nasal congestion C/V: Denies Chest pain RESP: Denies shortness of breath GI: Endorses abdominal pain : Denies dysuria SKIN: Denies rash. MSK: Denies joint pain. NEURO: Denies headache ROS Other: All systems not noted in ROS Statement are negative. Past Medical History Past Medical History: Fibromyalgia, Thyroid Disorder Additional Past Medical History / Comment(s): DDD, bulging discs, neuropathy in legs, thyroid nodules, anemia, environmental allergies, constipation/diarrhea, IBS diagnosed in 2019, chronic gastritis. History of Any Multi-Drug Resistant Organisms: None Reported Past Surgical History: Hysterectomy, Orthopedic Surgery Additional Past Surgical History / Comment(s): Right wrist and forearm surgery, D&C, mass on vocal cords - surgery and biopsy. Past Anesthesia/Blood Transfusion Reactions: Postoperative Nausea & Vomiting (PONV) Additional Past Anesthesia/Blood Transfusion Reaction / Comment(s): Constipation post-op. Past Psychological History: Anxiety Smoking Status: Former smoker, Vaper Past Alcohol Use History: None Reported Past Drug Use History: Marijuana - Past Family History Mother Family Medical History: No Reported History Father Family Medical History: COPD Additional Family Medical History / Comment(s): "Cardiovascular swelling". General Exam - General Exam Comments Initial Comments: General: Appears in mild to moderate distress secondary to abdominal pain. HEAD: Normal with no signs of head trauma. EYES: PERRLA, EOMI, conjunctiva normal, no discharge. ENT: Hearing grossly intact, normal oropharynx. RESPIRATORY: Clear breath sounds bilaterally. No wheezes, rales, or rhonchi. C/V: Regular rate and rhythm. S1 and S2 auscultated, no edema, peripheral pulses 2+ and intact throughout ABD: Abdomen is soft, nondistended. Mildly tender to palpation bilateral lower quadrants. No guarding. No rebound tenderness. No flank pain. EXT: Normal range of motion, no obvious deformity SKIN: No rashes or lesions observed on exposed skin. NEURO: Alert and oriented x 4. Limitations: no limitations Course Vital Signs 10/15/23 10/15/23 07:25 10:46 Temperature 98.6 F Pulse Rate 81 66 Respiratory 18 16 Rate Blood Pressure 169/96 134/71 O2 Sat by Pulse 99 97 Oximetry Medical Decision Making - Medical Decision Making Was pt. sent in by a medical professional or institution (, LANE, [employer]ING AND TR[employer] INSTALLER, urgent care, hospital, or long-term...) When possible be specific @ -No Did you speak to anyone other than the patient for history (EMS, parent, family, police, friend...)? What history was obtained from this source @ -No Did you review nursing and triage notes (agree or disagree)? Why? @ -I reviewed and agree with nursing and triage notes Were old charts reviewed (outside hosp., previous admission, EMS record, old EKG, old radiological studies, urgent care reports/EKG's, long-term records)? Report findings @ -Old charts reviewed Differential Diagnosis (chest pain, altered mental status, abdominal pain women, abdominal pain men, vaginal bleeding, weakness, fever, dyspnea, syncope, headache, dizziness, GI bleed, back pain, seizure, CVA, palpatations, mental health, musculoskeletal)? @ -Differential Abdominal Pain Women: Appendicitis, Cholecystitis, diverticulosis, ischemic bowel, pancreatitis, hepatitis, UTI, gastroenteritis, AAA, incarcerated hernia, bowel obstruction, constipation, inflammatory bowel, hepatitis, peptic ulcer disease, splenic infarction, perforated viscus, vulvitis, ovarian torsion, PID, kidney stone, placenta abruption, this is not meant to be an all-inclusive list EKG interpreted by me (3pts min.). @ -As above X-rays interpreted by me (1pt min.). @ -None done CT interpreted by me (1pt min.). @ -CT abdomen pelvis reveals no obvious acute intra-abdominal process. U/S interpreted by me (1pt. min.). @ -None done What testing was considered but not performed or refused? (CT, X-rays, U/S, lab s)? Why? @ -None What meds were considered but not given or refused? Why? @ -None Did you discuss the management of the patient with other professionals (professionals i.e. , LANE, MOLDING AND TR[employer] INSTALLER, lab, RT, psych nurse, professor of social work, teacher of the deaf, teacher, commanding officer garage, social work case manager)? Give summary @ -Spoke with Dr. Conway of [facility] who is covering for Dr. Mendosa who accepted the admission. Was smoking cessation discussed for >3mins.? @ -No Was critical care preformed (if so, how long)? @ -No Were there social determinants of health that impacted care today? How? (Homelessness, low income, unemployed, alcoholism, drug addiction, transportation, low edu. Level, literacy, decrease access to med. care, half-way, r ehab)? @ -No Was there de-escalation of care discussed even if they declined (Discuss DNR or withdrawal of care, Hospice)? DNR status @ -No What co-morbidities impacted this encounter? (DM, HTN, Smoking, COPD, CAD, Cancer, CVA, ARF, Chemo, Hep., AIDS, mental health diagnosis, sleep apnea, morbid obesity)? @ -None Was patient admitted / discharged? Hospital course, mention meds given and route, prescriptions, significant lab abnormalities, going to OR and other pertinent info. @ -Based on the patient's presentation and physical exam, presents as a revisit for her typical abdominal pain when she is experiencing an IBS flare. States she was improving but returns for continued complaints. We will obtain abdominal laboratory studies, screening EKG. Vital signs are within acceptable limits. Patient will be administered IV fluids, Protonix, morphine, Reglan. EKG shows no signs of acute ischemia. Patient's laboratory studies are improved from the other day. Had a leukocytosis 2 days ago which is resolved for the most part, currently with a white blood cell count of 10.8. Lactic acid is within acceptable limits. No other obvious acute findings on labs. She is not . Remainder the patient's laboratory studies within acceptable limits. CT imaging unremarkable. On reevaluation, after multiple doses of pain meds and antiemetics she is still having intractable nausea and vomiting. Patient will be admitted at this time. She was in agreement this plan. She will be admitted to observation. I spoke with the admitting physician, Dr. Conway who accepted the admission. Undiagnosed new problem with uncertain prognosis? @ -No Drug Therapy requiring intensive monitoring for toxicity (Heparin, Nitro, Insulin, Cardizem)? @ -No Were any procedures done? @ -No Diagnosis/symptom? @ -Intractable nausea and vomiting Acute, or Chronic, or Acute on Chronic? @ -Acute Uncomplicated (without systemic symptoms) or Complicated (systemic symptoms)? @ -Complicated Side effects of treatment? @ -None Exacerbation, Progression, or Severe Exacerbation] @ -No Poses a threat to life or bodily function? @ -Yes - Lab Data Result diagrams: 10/15/23 07:52 10/15/23 07:52 Lab Results 10/15/23 10/15/23 10/15/23 Range/Units 07:52 07:52 07:52 WBC 10.8 H (3.8-10.6) k/uL RBC 4.88 (3.80-5.40) m/uL Hgb 13.9 (11.4-16.0) gm/dL Hct 41.7 (34.0-46.0) % MCV 85.6 (80.0-100.0) fL MCH 28.6 (25.0-35.0) pg MCHC 33.4 (31.0-37.0) g/dL RDW 13.4 (11.5-15.5) % Plt Count 306 (150-450) k/uL MPV 8.0 Neutrophils % 75 % Lymphocytes % 19 % Monocytes % 5 % Eosinophils % 0 % Basophils % 0 % Neutrophils # 8.1 H (1.3-7.7) k/uL Lymphocytes # 2.0 (1.0-4.8) k/uL Monocytes # 0.5 (0-1.0) k/uL Eosinophils # 0.0 (0-0.7) k/uL Basophils # 0.0 (0-0.2) k/uL PT 10.4 (10.0-12.5) sec INR 0.9 (<1.2) APTT 22.2 (22.0-30.0) sec Sodium 137 (137-145) mmol/L Potassium 3.6 (3.5-5.1) mmol/L Chloride 103 (98-107) mmol/L Carbon Dioxide 18 L (22-30) mmol/L Anion Gap 16 mmol/L BUN 21 H (7-17) mg/dL Creatinine 0.85 (0.52-1.04) mg/dL Est GFR (CKD-EPI)AfAm >90 (>60 ml/min/1.73 sqM) Est GFR (CKD-EPI)NonAf 83 (>60 ml/min/1.73 sqM) Glucose 122 H (74-99) mg/dL Plasma Lactic Acid Zaid (0.7-2.0) mmol/L Calcium 10.2 (8.4-10.2) mg/dL Total Bilirubin 0.8 (0.2-1.3) mg/dL AST 63 H (14-36) U/L ALT 48 H (4-34) U/L Alkaline Phosphatase 117 (38-126) U/L Total Protein 8.3 H (6.3-8.2) g/dL Albumin 5.1 H (3.5-5.0) g/dL Amylase 65 (30-110) U/L Lipase 58 (23-300) U/L HCG, Qual Not Detected Urine Color Urine Appearance (Clear) Urine pH (5.0-8.0) Ur Specific [place] (1.001-1.035) Urine Protein (Negative) Urine Glucose (UA) (Negative) Urine Ketones (Negative) Urine Blood (Negative) Urine Nitrite (Negative) Urine Bilirubin (Negative) Urine Urobilinogen (<2.0) mg/dL Ur Leukocyte Esterase (Negative) 10/15/23 10/15/23 Range/Units 07:52 09:03 WBC (3.8-10.6) k/uL RBC (3.80-5.40) m/uL Hgb (11.4-16.0) gm/dL Hct (34.0-46.0) % MCV (80.0-100.0) fL MCH (25.0-35.0) pg MCHC (31.0-37.0) g/dL RDW (11.5-15.5) % Plt Count (150-450) k/uL MPV Neutrophils % % Lymphocytes % % Monocytes % % Eosinophils % % Basophils % % Neutrophils # (1.3-7.7) k/uL Lymphocytes # (1.0-4.8) k/uL Monocytes # (0-1.0) k/uL Eosinophils # (0-0.7) k/uL Basophils # (0-0.2) k/uL PT (10.0-12.5) sec INR (<1.2) APTT (22.0-30.0) sec Sodium (137-145) mmol/L Potassium (3.5-5.1) mmol/L Chloride (98-107) mmol/L Carbon Dioxide (22-30) mmol/L Anion Gap mmol/L BUN (7-17) mg/dL Creatinine (0.52-1.04) mg/dL Est GFR (CKD-EPI)AfAm (>60 ml/min/1.73 sqM) Est GFR (CKD-EPI)NonAf (>60 ml/min/1.73 sqM) Glucose (74-99) mg/dL Plasma Lactic Acid Zaid 1.9 (0.7-2.0) mmol/L Calcium (8.4-10.2) mg/dL Total Bilirubin (0.2-1.3) mg/dL AST (14-36) U/L ALT (4-34) U/L Alkaline Phosphatase (38-126) U/L Total Protein (6.3-8.2) g/dL Albumin (3.5-5.0) g/dL Amylase (30-110) U/L Lipase (23-300) U/L HCG, Qual Urine Color Colorless Urine Appearance Clear (Clear) Urine pH 7.0 (5.0-8.0) Ur Specific [place] 1.012 (1.001-1.035) Urine Protein Negative (Negative) Urine Glucose (UA) Negative (Negative) Urine Ketones 2+ H (Negative) Urine Blood Negative (Negative) Urine Nitrite Negative (Negative) Urine Bilirubin Negative (Negative) Urine Urobilinogen <2.0 (<2.0) mg/dL Ur Leukocyte Esterase Negative (Negative) - EKG Data -: EKG Interpreted by Me EKG Comments: 12-lead Electrocardiogram Interpretation Note EKG was reviewed and interpreted by myself. 12-lead ECG performed at 0757 is interpreted by me as revealing normal sinus rhythm at a rate of 72 beats per minute. [place] is normal. [place] interval is 128 ms, QRS duration is 80 ms, QTc is 440 ms.. There were no ST or T wave abnormalities to suggest myocardial ischemia or injury. R wave progression across the precordium was satisfactory. By my interpretation this EKG is non-diagnostic for acute ischemia. Disposition Clinical Impression: Intractable nausea and vomiting Disposition: ADMITTED IP TO THIS HOSP Condition: Stable Time of Disposition: 10:22
[2023-10-15 09:08] LABS: Appearance,Urine Clear (Clear); Bilirubin,Urine Negative (Negative); Blood,Urine Negative (Negative); Color,Urine Colorless; Glucose,Urine (UA) Negative (Negative); Ketones,Urine 2+ (Negative); Leukocyte Esterase,Urine Negative (Negative); Nitrite,Urine Negative (Negative); Protein,Urine Negative (Negative); Specific Gravity,Urine 1.012 (1.001-1.035); Urobilinogen,Urine <2.0 mg/dL (<2.0)
--- NOTE | 2023-10-15 09:22 | CT ---
EXAMINATION TYPE: CT abdomen pelvis w con CT DLP: 780.3 mGycm, Automated exposure control for dose reduction was used. DATE OF EXAM: 10/15/2023 9:13 AM COMPARISON: CT abdomen pelvis most recent from 07/07/2023. CLINICAL INDICATION:Female, 43 years old with history of pain, n/v; Pain, N&V TECHNIQUE: Axial CT abdomen pelvis w con;Sagittal and coronal reformats were created on a separate w orkstation. Contrast used:100 ml mL of Isovue 300 with IV Contrast, (none if empty) Oral contrast used: without Oral Contrast (none if empty) FINDINGS: LOWER CHEST: Unremarkable ABDOMEN LIVER: Focal fatty infiltration adjacent to the falciform ligament in segment IVb. GALLBLADDER AND BILE DUCTS: Unremarkable. PANCREAS: Unremarkable. SPLEEN: Unremarkable. ADRENAL GLANDS: Unremarkable. KIDNEYS AND URETERS: No evidence of hydronephrosis or renal calculus. The ureters are unremarkable. PELVIS BLADDER: Unremarkable REPRODUCTIVE: Unremarkable. ABDOMEN & PELVIS STOMACH AND BOWEL: No evidence of bowel obstruction. The appendix is normal. PERITONEUM/RETROPERITONEUM: No evidence of pneumoperitoneum or free fluid. VASCULATURE: No evidence of aortic aneurysm. MUSCULOSKELETAL: No acute osseous abnormalities LYMPH NODES: No gross evidence for lymphadenopathy. SOFT TISSUE/ABDOMINAL WALL: Fat-containing umbilical hernia. IMPRESSION: No evidence for acute abdominal process.
[2023-10-15] MEDS: ONDANSETRON 4 MG/2 ML VIAL IVP STA (09:24)
[2023-10-15] MEDS: diphenhydrAMINE 50 MG/ML 1 ML VIAL IVP STA (09:25)
[2023-10-15] MEDS ORDERED: NALOXONE 0.4 MG/ML 1 ML VIAL IV PRN (10:33)
[2023-10-15] MEDS: SODIUM CHLORIDE 0.9% 1,000 ML IV SCH (10:45)
[2023-10-15] MEDS ORDERED: PANTOPRAZOLE 40 MG TABLET PO PRN (11:57)
[2023-10-15] MEDS ORDERED: AMITRIPTYLINE HCL 25 MG TAB PO PRN (11:57)
[2023-10-15] MEDS ORDERED: HYDROcodone/APAP 10-325MG 1 EACH TAB PO PRN (11:57)
[2023-10-15] MEDS ORDERED: DICYCLOMINE 20 MG TAB PO PRN (11:57)
[2023-10-15] MEDS ORDERED: PROMETHAZINE 25 MG TAB PO PRN (11:57)
[2023-10-15] MEDS ORDERED: PROMETHAZINE SUPPOSITORY 25 MG SUPP RECTAL PRN (11:57)
--- NOTE | 2023-10-15 13:12 | P.HPIM ---
History of Present Illness H&P Date: 10/15/23 History of present illness; patient is 43-year-old lady with past medical history significant for IBS who presented to the ER for nausea vomiting and abdominal pain. Patient states that she was seen in the ER over the weekend at which time she presented with similar complaint and was treated and was discharged after feeling better. Patient stated that she felt good for 1 day but since last night she has been having worsening abdominal pain. Abdominal pain is generalized, similar to her usual pain that she experiencing during her IBS flareups, located in the lower quadrant, nonradiating, no aggravating or relieving factor associated with abdominal pain. patient was also complaining of nausea and vomiting. Patient is unable to keep anything down. Denies any blood in the stools. Denies any fever or chills. There was no complaint of chest pain or shortness of breath. Because of abdominal pain, patient came to the ER Initial lab work done in the ER showed WBC 10.8, hemoglobin 13.9, platelet count 306, sodium 137, potassium 3.6, BUN 20, creatinine 0.85, glucose 122, AST 63, ALT 48, UA negative for infection EKG done in the ER showed heart rate of 72, no ST segment elevation or de pression seen, no T-wave inversions seen. CT abdominal pelvis done showed no evidence for acute abdominal process Patient admitted to internal medicine service REVIEW OF SYSTEMS: CONSTITUTIONAL: No fever, no malaise, no fatigue. HEENT: No recent visual problems or hearing problems. Denied any sore throat. CARDIOVASCULAR: No chest pain, orthopnea, PND, no palpitations, no syncope. PULMONARY: No shortness of breath, no cough, no hemoptysis. GASTROINTESTINAL: As mentioned above NEUROLOGICAL: No headaches, no weakness, no numbness. HEMATOLOGICAL: Denies any bleeding or petechiae. GENITOURINARY: Denies any burning micturition, frequency, or urgency. MUSCULOSKELETAL/RHEUMATOLOGICAL: Denies any joint pain, swelling, or any muscle pain. ENDOCRINE: Denies any polyuria or polydipsia. The rest of the 14-point review of systems is negative. PHYSICAL EXAMINATION: GENERAL: The patient is alert and oriented x3, not in any acute distress. Well developed, well nourished. HEENT: Pupils are round and equally reacting to light. EOMI. No scleral icterus. No conjunctival pallor. Normocephalic, atraumatic. No pharyngeal erythema. No thyromegaly. CARDIOVASCULAR: S1 and S2 present. No murmurs, rubs, or gallops. PULMONARY: Chest is clear to auscultation, no wheezing or crackles. ABDOMEN: Soft, nontender, nondistended, normoactive bowel sounds. No palpable organomegaly. MUSCULOSKELETAL: No joint swelling or deformity. EXTREMITIES: No cyanosis, clubbing, or pedal edema. NEUROLOGICAL: Gross neurological examination did not reveal any focal deficits. SKIN: No rashes. Assessment and plan Abdominal pain Nausea and vomiting Elevated LFTs. History of IBS Fibromyalgia Monitor vital signs Monitor CBC Monitor CMP Continue IV fluid Continue antiemetics Keep patient clear liquid diet Continue pain management Resume home meds Labs and medication were reviewed.. Continue same treatment. Continue with symptomatic treatment. Resume home medication. Monitor labs and vitals. DVT and GI prophylaxis. Further recommendations as per clinical course of the patient Dictation was produced using [employer] dictation software. please excuse any grammatical, word or spelling errors. Past Medical History Past Medical History: Fibromyalgia, Thyroid Disorder Additional Past Medical History / Comment(s): DDD, bulging discs, neuropathy in legs, thyroid nodules, anemia, environmental allergies, constipation/diarrhea, IBS diagnosed in 2019, chronic gastritis. History of Any Multi-Drug Resistant Organisms: None Reported Past Surgical History: Hysterectomy, Orthopedic Surgery Additional Past Surgical History / Comment(s): Right wrist and forearm surgery, D&C, mass on vocal cords - surgery and biopsy. Past Anesthesia/Blood Transfusion Reactions: Postoperative Nausea & Vomiting (PONV) Additional Past Anesthesia/Blood Transfusion Reaction / Comment(s): Constipation post-op. Past Psychological History: Anxiety Smoking Status: Former smoker, Vaper Past Alcohol Use History: None Reported Past Drug Use History: Marijuana - Past Family History Mother Family Medical History: No Reported History Father Family Medical History: COPD Additional Family Medical History / Comment(s): "Cardiovascular swelling". Medications and Allergies Home Medications Medication Instructions Recorded Confirmed Type HYDROcodone/APAP 10-325MG [[place] 1 tab PO TID PRN 04/03/17 10/15/23 History 10-325] Amitriptyline HCl [Elavil] 25 mg PO HS PRN 07/08/23 10/15/23 History Dicyclomine [Bentyl] 20 mg PO QID PRN 07/08/23 10/15/23 History Promethazine [Phenergan] 12.5 mg PO DAILY PRN 07/08/23 10/15/23 History Ondansetron Odt [Zofran Odt] 4 mg PO Q8HR PRN #30 tab 10/14/23 10/15/23 Rx Promethazine Suppository 25 mg RECTAL QID PRN #30 supp 10/14/23 10/15/23 Rx [Phenergan] FLUoxetine HCL 20 mg PO DAILY 10/15/23 10/15/23 History Naloxone HCl 4 mg NASAL DIRECTED PRN 10/15/23 10/15/23 History Pantoprazole Sodium [Protonix] 40 mg PO AC-BID PRN 10/15/23 10/15/23 History Allergies Allergy/AdvReac Type Severity Reaction Status Date / Time propoxyphene Allergy Rash/Hives Verified 10/15/23 11:35 [From MarthaSumit] Physical Exam Vitals: Vital Signs Temp Pulse Resp BP Pulse Ox 10/15/23 10:46 66 16 134/71 97 10/15/23 07:25 98.6 F 81 18 169/96 99 Intake and Output 10/14/23 10/15/23 10/15/23 22:59 06:59 14:59 Other: Weight 76.204 kg Results CBC & Chem 7: 10/15/23 07:52 10/15/23 07:52 Labs: Abnormal Lab Results - Last 24 Hours (Table) 10/15/23 10/15/23 10/15/23 Range/Units 07:52 07:52 09:03 WBC 10.8 H (3.8-10.6) k/uL Neutrophils # 8.1 H (1.3-7.7) k/uL Carbon Dioxide 18 L (22-30) mmol/L BUN 21 H (7-17) mg/dL Glucose 122 H (74-99) mg/dL AST 63 H (14-36) U/L ALT 48 H (4-34) U/L Total Protein 8.3 H (6.3-8.2) g/dL Albumin 5.1 H (3.5-5.0) g/dL Urine Ketones 2+ H (Negative)
[2023-10-15] MEDS: ONDANSETRON 4 MG/2 ML VIAL IVP PRN (13:37)
[2023-10-15] MEDS: MORPHINE SULFATE 4 MG/ML SYRINGE IVP PRN (13:37)
[2023-10-15 15:17] VITALS: RESP 16
[2023-10-16 08:33] VITALS: BP 107/69; PULSE 62; TEMP 98.5
[2023-10-16 08:45] LABS: Basophils # (A) 0.06 X 10*3/uL (0.00-0.10); Basophils % (A) 0.7 %; Eosinophils # (A) 0 X 10*3/uL (0.04-0.35); Eosinophils % (A) 0 %; HCT 36.9 % (37.2-46.3); HGB 12.2 g/dL (12.0-15.0); Lymphocytes # (A) 2.96 X 10*3/uL (0.90-5.00); Lymphocytes % (A) 32.3 %; MCH 29.3 pg (27.0-32.0); MCHC 33.1 g/dL (32.0-37.0); MCV 88.7 FL (80.0-97.0); Monocytes # (A) 0.74 X 10*3/uL (0.20-1.00); Monocytes % (A) 8.1 %; NRBC Per 100 WBC 0 X 10*3/uL (0.00-0.01); Neutrophils # (A) 5.38 X 10*3/uL (1.80-7.70); Neutrophils % (A) 58.6 %; Platelet Count 273 X 10*3/uL (140-440); RBC 4.16 X 10*6/uL (4.10-5.20); RDW 13.4 % (11.5-14.5); WBC 9.17 X 10*3/uL (4.50-10.00)
[2023-10-16 08:52] LABS: BUN/Creat Ratio 11.44 Ratio (12.00-20.00); Blood Urea Nitrogen 10.3 mg/dL (9.0-27.0); Calcium 9.6 mg/dL (8.7-10.3); Carbon Dioxide 25.7 mmol/L (21.6-31.8); Chloride 104 mmol/L (96-109); Glucose 90 mg/dL (70-110); Potassium 4.4 mmol/L (3.5-5.5); Sodium 141 mmol/L (135-145)
[2023-10-16] MEDS: FLUoxetine HCL 20 MG CAP PO SCH (11:31)
--- NOTE | 2023-10-20 18:07 | P.DS ---
Providers Date of admission: 10/15/23 10:33 Expected date of discharge: 10/16/23 Attending physician: Madhav Conway MD Primary care physician: Cynthia Fox Hospital Course: Final diagnosis Abdominal pain with nausea and vomiting, likely acute gastritis, resolved Elevated LFT, trending down History of IBS Fibromyalgia GI prophylaxis DVT prophylaxis Full code Discharge disposition Patient is being discharged in a stable condition with guarded prognosis to home. Patient will follow-up with Dr. Fox in the outpatient setting upon discharge. Patient is to continue with current diet and slowly advance as tolerated. Total time taken is greater than 35 minutes. Hospital course This is a 43-year-old female who was recently admitted with abdominal pain with nausea and vomiting being closely monitored. Patient hydrated reporting to feeling improved after nausea medication. Patient tolerating diet and reports abdominal pain is resolved and would like to go home. Patient instructed to follow-up with primary care provider on discharge. Recommend follow-up labs in the outpatient setting to monitor liver functions. Currently no reports of chest pain, shortness of breath, or palpitations. Patient is afebrile. No reports of nausea or vomiting and patient is tolerating diet. Patient will be discharged home today. Physical exam: Gen: This is a 43-year-old female who is awake, alert and oriented x 3, well- developed, well-nourished HEENT: Head is atraumatic, normocephalic. Pupils equal, round. Sclerae is anicteric. NECK: Supple. No JVD. No lymphadenopathy. No thyromegaly. LUNGS: Clear to auscultation. No wheezes or rhonchi. No intercostal retractions. HEART: Regular rate and rhythm. No murmur. ABDOMEN: Soft. Bowel sounds are present. No masses. No tenderness. EXTREMITIES: No pedal edema. No calf tenderness. NEUROLOGICAL: Patient is awake, alert and oriented x3. Cranial nerves 2 through 12 are grossly intact. Please refer to medication reconciliation sheet for a list of medications. The impression and plan of care has been dictated by Chela Jaimes, Nurse Practitioner as directed. Dr. Javier MD I have performed a history and examination and MDM of this patient, discussed the same with the dictator, and agree with the dictator's assessment and plan as written ,documented as a scribe. Based on total visit time, I have performed more than 50% of the visit. Patient Condition at Discharge: Stable Plan - Discharge Summary Discharge Rx Participant: No New Discharge Prescriptions: Continue HYDROcodone/APAP 10-325MG [[place] 10-325] 1 tab PO TID PRN PRN Reason: Pain Dicyclomine [Bentyl] 20 mg PO QID PRN PRN Reason: IBS Promethazine Suppository [Phenergan] 25 mg RECTAL QID PRN #30 supp PRN Reason: Nausea And Vomiting Ondansetron Odt [Zofran ODT] 4 mg PO Q8HR PRN #30 tab PRN Reason: Nausea And Vomiting FLUoxetine HCL 20 mg PO DAILY Promethazine [Phenergan] 12.5 mg PO DAILY PRN PRN Reason: Nausea Amitriptyline HCl [Elavil] 25 mg PO HS PRN PRN Reason: Insomnia Naloxone HCl 4 mg NASAL DIRECTED PRN PRN Reason: accidental overdose Pantoprazole Sodium [Protonix] 40 mg PO AC-BID PRN PRN Reason: Heartburn/Gerd Discharge Medication List HYDROcodone/APAP 10-325MG [[place] 10-325] 1 tab PO TID PRN 04/03/17 [History] Amitriptyline HCl [Elavil] 25 mg PO HS PRN 07/08/23 [History] Dicyclomine [Bentyl] 20 mg PO QID PRN 07/08/23 [History] Promethazine [Phenergan] 12.5 mg PO DAILY PRN 07/08/23 [History] Ondansetron Odt [Zofran ODT] 4 mg PO Q8HR PRN #30 tab 10/14/23 [Rx] Promethazine Suppository [Phenergan] 25 mg RECTAL QID PRN #30 supp 10/14/23 [Rx] FLUoxetine HCL 20 mg PO DAILY 10/15/23 [History] Naloxone HCl 4 mg NASAL DIRECTED PRN 10/15/23 [History] Pantoprazole Sodium [Protonix] 40 mg PO AC-BID PRN 10/15/23 [History] Follow up Appointment(s)/Referral(s): Cynthia Fox MD [Primary Care Provider] - 1-2 days (Patient to make own follow-up appointment) Patient Instructions/Handouts: Acute Nausea and Vomiting (DC) Activity/Diet/Wound Care/Special Instructions: Activity limited until follow-up Follow-up primary care provider on discharge Continue with current diet and slowly advance as tolerated Discharge Disposition: HOME SELF-CARE
== END 2023-10-16 12:11 | disposition home or self-care (01) ==
LOC: EC 07:06 → 5NMEDONC 10:33
PROVIDERS: ADMIT Internal Medicine; ATTEND Internal Medicine
DX: R10.30 Lower abdominal pain, unspecified (principal); R11.2 Nausea with vomiting, unspecified; R79.89 Other specified abnormal findings of blood chemistry; K58.9 Irritable bowel syndrome, unspecified; M79.7 Fibromyalgia; D64.9 Anemia, unspecified; E04.2 Nontoxic multinodular goiter; G62.9 Polyneuropathy, unspecified; F41.9 Anxiety disorder, unspecified; Z79.899 Other long term (current) drug therapy; Z88.8 Allergy status to other drugs, medicaments and biological substances; Z82.5 Family history of asthma and other chronic lower respiratory diseases
CPT/HCPCS: 96361 ×2; 96376; 96374; 96375; 99285; 36415; 93005; 80053; 80048; 82150; 83605; 83690; 85025 ×2; 85610; 85730; 81003; 84703; 74177; G0378 ×2; J2270; J1200; J2765; J2405; C9113; Q9967

== ENCOUNTER 2023-11-27 10:14 | Observation (INO) | payer MEDICARE, OTHER ==
--- NOTE | 2023-11-27 10:37 | ED ---
Nausea/Vomiting/Diarrhea HPI - General Chief complaint: Nausea/Vomiting/Diarrhea Stated complaint: IBS Flare Up Time Seen by Provider: 11/27/23 10:34 Source: patient, family, RN notes reviewed, old records reviewed Mode of arrival: ambulatory Limitations: no limitations - History of Present Illness Initial comments: Patient is a 43-year-old female presented to the ER with a chief complaint of IBS flare up. Patient states she has been having constant nausea with vomiting for the past 2 days with occasional diarrhea. She follows up with Dr. Allison and was supposed to follow-up with her today but presented to the ER instead. She has tried prescribed Zofran without relief last dose this AM. She is reporting generalized abdominal pain from vomiting. Denies any fevers, chills, night sweats, chest pain, shortness of breath, urinary complaints or peripheral edema. - Related Data Home Medications Medication Instructions Recorded Confirmed HYDROcodone/APAP 10-325MG [[place] 1 tab PO TID PRN 04/03/17 11/27/23 10-325] Amitriptyline HCl [Elavil] 25 mg PO HS PRN 07/08/23 11/27/23 Dicyclomine [Bentyl] 20 mg PO QID PRN 07/08/23 11/27/23 Promethazine [Phenergan] 12.5 mg PO DAILY PRN 07/08/23 11/27/23 FLUoxetine HCL 20 mg PO DAILY 10/15/23 11/27/23 Naloxone HCl 4 mg NASAL DIRECTED PRN 10/15/23 11/27/23 Pantoprazole Sodium [Protonix] 40 mg PO AC-BID PRN 10/15/23 11/27/23 Previous Rx's Medication Instructions Recorded Ondansetron Odt [Zofran ODT] 4 mg PO Q8HR PRN #30 tab 10/14/23 Promethazine Suppository 25 mg RECTAL QID PRN #30 supp 10/14/23 [Phenergan] Allergies Allergy/AdvReac Type Severity Reaction Status Date / Time propoxyphene Allergy Rash/Hives Verified 11/27/23 13:09 [From Sissy] Review of Systems ROS Statement: Those systems with pertinent positive or pertinent negative responses have been documented in the HPI. ROS Other: All systems not noted in ROS Statement are negative. Past Medical History Past Medical History: Fibromyalgia, Thyroid Disorder Additional Past Medical History / Comment(s): DDD, bulging discs, neuropathy in legs, thyroid nodules, anemia, environmental allergies, constipation/diarrhea, IBS diagnosed in 2019, chronic gastritis, GERD. History of Any Multi-Drug Resistant Organisms: None Reported Past Surgical History: Hysterectomy, Orthopedic Surgery Additional Past Surgical History / Comment(s): Right wrist and forearm surgery, D&C, mass on vocal cords - surgery and biopsy. Past Anesthesia/Blood Transfusion Reactions: Postoperative Nausea & Vomiting (PONV) Additional Past Anesthesia/Blood Transfusion Reaction / Comment(s): Constipation post-op. Past Psychological History: Anxiety Smoking Status: Former smoker, Vaper Past Alcohol Use History: None Reported Past Drug Use History: Marijuana - Past Family History Mother Family Medical History: No Reported History Father Family Medical History: COPD Additional Family Medical History / Comment(s): "Cardiovascular swelling". General Exam Limitations: no limitations General appearance: alert, in no apparent distress Head exam: Present: atraumatic, normocephalic, normal inspection Eye exam: Present: normal appearance, PERRL, EOMI. Absent: scleral icterus, conjunctival injection, periorbital swelling Respiratory exam: Present: normal lung sounds bilaterally, other (Patient actively vomiting during exam). Absent: respiratory distress, wheezes, rales, rhonchi, stridor Cardiovascular Exam: Present: regular rate, normal rhythm, normal heart sounds. Absent: systolic murmur, diastolic murmur, rubs, gallop, clicks GI/Abdominal exam: Present: soft, tenderness (Epigastric), normal bowel sounds. Absent: distended, guarding, rebound, rigid Extremities exam: Present: normal inspection, full ROM, normal capillary refill. Absent: tenderness, pedal edema, joint swelling, calf tenderness Neurological exam: Present: alert, oriented X3, CN II-XII intact Psychiatric exam: Present: normal affect, normal mood Skin exam: Present: warm, dry, intact, normal color. Absent: rash Course Vital Signs 11/27/23 11/27/23 10:20 12:36 Temperature 97.9 F 98.2 F Pulse Rate 82 94 Respiratory 20 18 Rate Blood Pressure 177/114 140/101 O2 Sat by Pulse 99 98 Oximetry - Reevaluation(s) Reevaluation #1: 11/27/23 14:[address] Mendosa who accepts medical admission. Medical Decision Making - Medical Decision Making Was pt. sent in by a medical professional or institution ([facility], CHIEF ENVIRONMENTAL COMMITMENT OFFICER, urgent care, hospital, or custodial...) When possible be specific @ -No Did you speak to anyone other than the patient for history (EMS, parent, family, police, friend...)? What history was obtained from this source @ -No Did you review nursing and triage notes (agree or disagree)? Why? @ -I reviewed and agree with nursing and triage notes Were old charts reviewed (outside hosp., previous admission, EMS record, old EKG, old radiological studies, urgent care reports/EKG's, custodial records)? Report findings @ -Yes I reviewed old charts from 11-26-2023 where patient eloped prior to completion of medical treatment. Differential Diagnosis (chest pain, altered mental status, abdominal pain women, abdominal pain men, vaginal bleeding, weakness, fever, dyspnea, syncope, headache, dizziness, GI bleed, back pain, seizure, CVA, palpatations, mental health, musculoskeletal)? @ -Differential Abdominal Pain Women: Appendicitis, Cholecystitis, diverticulosis, ischemic bowel, pancreatitis, hepatitis, UTI, gastroenteritis, AAA, incarcerated hernia, bowel obstruction, constipation, inflammatory bowel, hepatitis, peptic ulcer disease, splenic infarction, perforated viscus, vulvitis, ovarian torsion, PID, kidney stone, placenta abruption, this is not meant to be an all-inclusive list EKG interpreted by me (3pts min.). @ -None X-rays interpreted by me (1pt min.). @ -None done CT interpreted by me (1pt min.). @ -None done U/S interpreted by me (1pt. min.). @ -None done What testing was considered but not performed or refused? (CT, X-rays, U/S, labs)? Why? @ -None What meds were considered but not given or refused? Why? @ -None Did you discuss the management of the patient with other professionals (professionals i.e. [employer], CHIEF ENVIRONMENTAL COMMITMENT OFFICER, lab, RT, psych nurse, social science manager, door clamp operator, teacher, gift officer, manager of case)? Give summary @ -Yes, case discussed with Dr. Mendosa who accepts medical admission. He wanted patient started on lactated Ringer's and C. difficile testing. Was smoking cessation discussed for >3mins.? @ -No Was critical care preformed (if so, how long)? @ -No Were there social determinants of health that impacted care today? How? (Homelessness, low income, unemployed, alcoholism, drug addiction, transportation, low edu. Level, literacy, decrease access to med. care, senior living, rehab)? @ -No Was there de-escalation of care discussed even if they declined (Discuss DNR or withdrawal of care, Hospice)? DNR status @ -No What co-morbidities impacted this encounter? (DM, HTN, Smoking, COPD, CAD, Cancer, CVA, ARF, Chemo, Hep., AIDS, mental health diagnosis, sleep apnea, morbid obesity)? @ -IBS Was patient admitted / discharged? Hospital course, mention meds given and route, prescriptions, significant lab abnormalities, going to OR and other pertinent info. @ -Admitted. Patient is a 43 year old female presenting to the ER with a chief complaint of abdominal pain, nausea, and vomiting. History and physical exam completed. Vitals stable. Patient in no signs of acute distress and nontoxic appearing. Mild epigastric tenderness to palpation normal bowel sounds. Laboratory studies obtained significant for ALT 59, alk phos 127. Otherwise unremarkable. Urine without signs of infection. Urine hCG negative. UDS significant for opiates, TCAs and THC. Patient is prescribed Pope and Elavil. She received IV fluids, Zofran, Reglan, Pepcid, Toradol without improvement of symptoms. Admission considered for intractable nausea vomiting and symptom control. Case discussed with Dr. Mendosa who accepts medical admission. Patient will be started on lactated Ringer's and C. difficile testing ordered. Results discussed with patient, all questions answered. Patient agreeable for admission. Patient admitted in stable condition for further treatment. Case discussed with ED attending, Dr. Thapa. Undiagnosed new problem with uncertain prognosis? @ -No Drug Therapy requiring intensive monitoring for toxicity (Heparin, Nitro, Insulin, Cardizem)? @ -No Were any procedures done? @ -No Diagnosis/symptom? @ -Intractable nausea vomiting Acute, or Chronic, or Acute on Chronic? @ -Acute Uncomplicated (without systemic symptoms) or Complicated (systemic symptoms)? @ -Uncomplicated Side effects of treatment? @ -No Exacerbation, Progression, or Severe Exacerbation? @ -No Poses a threat to life or bodily function? How? (Chest pain, [place], [place], pneumonia, PE, COPD, DKA, ARF, appy, cholecystitis, CVA, Diverticulitis, Homicidal, Suicidal, threat to staff... and all critical care pts) @ -No - Lab Data Result diagrams: 11/27/23 10:57 11/27/23 11:04 Lab Results 11/27/23 11/27/23 11/27/23 Range/Units 10:57 11:04 11:04 WBC 8.8 (3.8-10.6) k/uL RBC 4.60 (3.80-5.40) m/uL Hgb 12.6 (11.4-16.0) gm/dL Hct 37.7 (34.0-46.0) % MCV 81.9 (80.0-100.0) fL MCH 27.4 (25.0-35.0) pg MCHC 33.4 (31.0-37.0) g/dL RDW 14.1 (11.5-15.5) % Plt Count 287 (150-450) k/uL MPV 8.3 Neutrophils % 77 % Lymphocytes % 18 % Monocytes % 4 % Eosinophils % 0 % Basophils % 1 % Neutrophils # 6.7 (1.3-7.7) k/uL Lymphocytes # 1.6 (1.0-4.8) k/uL Monocytes # 0.3 (0-1.0) k/uL Eosinophils # 0.0 (0-0.7) k/uL Basophils # 0.1 (0-0.2) k/uL Sodium 138 (137-145) mmol/L Potassium 3.5 (3.5-5.1) mmol/L Chloride 105 (98-107) mmol/L Carbon Dioxide 18 L (22-30) mmol/L Anion Gap 15 mmol/L BUN 21 H (7-17) mg/dL Creatinine 0.80 (0.52-1.04) mg/dL Est GFR (CKD-EPI)AfAm >90 (>60 ml/min/1.73 sqM) Est GFR (CKD-EPI)NonAf 90 (>60 ml/min/1.73 sqM) Glucose 117 H (74-99) mg/dL Plasma Lactic Acid Zaid 1.7 (0.7-2.0) mmol/L Calcium 9.9 (8.4-10.2) mg/dL Total Bilirubin 0.7 (0.2-1.3) mg/dL AST 36 (14-36) U/L ALT 59 H (4-34) U/L Alkaline Phosphatase 127 H (38-126) U/L Total Protein 8.1 (6.3-8.2) g/dL Albumin 4.9 (3.5-5.0) g/dL Amylase 67 (30-110) U/L Lipase 79 (23-300) U/L Urine Color Urine Appearance (Clear) Urine pH (5.0-8.0) Ur Specific [place] (1.001-1.035) Urine Protein (Negative) Urine Glucose (UA) (Negative) Urine Ketones (Negative) Urine Blood (Negative) Urine Nitrite (Negative) Urine Bilirubin (Negative) Urine Urobilinogen (<2.0) mg/dL Ur Leukocyte Esterase (Negative) Urine RBC (0-5) /hpf Urine WBC (0-5) /hpf Ur Squamous Epith Cells (0-4) /hpf Amorphous Sediment (None) /hpf Urine Bacteria (None) /hpf Urine Mucus (None) /hpf Urine HCG, Qual (Not Detectd) Urine Opiates Screen (NotDetected) Ur Oxycodone Screen (NotDetected) Urine Methadone Screen (NotDetected) Ur Barbiturates Screen (NotDetected) U Tricyclic Antidepress (NotDetected) Ur Phencyclidine Scrn (NotDetected) Ur Amphetamines Screen (NotDetected) U Methamphetamines Scrn (NotDetected) U Benzodiazepines Scrn (NotDetected) Urine Cocaine Screen (NotDetected) U Marijuana (THC) Screen (NotDetected) 11/27/23 11/27/23 11/27/23 Range/Units 11:30 11:37 11:37 WBC (3.8-10.6) k/uL RBC (3.80-5.40) m/uL Hgb (11.4-16.0) gm/dL Hct (34.0-46.0) % MCV (80.0-100.0) fL MCH (25.0-35.0) pg MCHC (31.0-37.0) g/dL RDW (11.5-15.5) % Plt Count (150-450) k/uL MPV Neutrophils % % Lymphocytes % % Monocytes % % Eosinophils % % Basophils % % Neutrophils # (1.3-7.7) k/uL Lymphocytes # (1.0-4.8) k/uL Monocytes # (0-1.0) k/uL Eosinophils # (0-0.7) k/uL Basophils # (0-0.2) k/uL Sodium (137-145) mmol/L Potassium (3.5-5.1) mmol/L Chloride (98-107) mmol/L Carbon Dioxide (22-30) mmol/L Anion Gap mmol/L BUN (7-17) mg/dL Creatinine (0.52-1.04) mg/dL Est GFR (CKD-EPI)AfAm (>60 ml/min/1.73 sqM) Est GFR (CKD-EPI)NonAf (>60 ml/min/1.73 sqM) Glucose (74-99) mg/dL Plasma Lactic Acid Zaid (0.7-2.0) mmol/L Calcium (8.4-10.2) mg/dL Total Bilirubin (0.2-1.3) mg/dL AST (14-36) U/L ALT (4-34) U/L Alkaline Phosphatase (38-126) U/L Total Protein (6.3-8.2) g/dL Albumin (3.5-5.0) g/dL Amylase (30-110) U/L Lipase (23-300) U/L Urine Color Colorless Urine Appearance Cloudy H (Clear) Urine pH 8.0 (5.0-8.0) Ur Specific [place] 1.016 (1.001-1.035) Urine Protein Negative (Negative) Urine Glucose (UA) Negative (Negative) Urine Ketones 1+ H (Negative) Urine Blood Negative (Negative) Urine Nitrite Negative (Negative) Urine Bilirubin Negative (Negative) Urine Urobilinogen <2.0 (<2.0) mg/dL Ur Leukocyte Esterase Negative (Negative) Urine RBC 1 (0-5) /hpf Urine WBC 2 (0-5) /hpf Ur Squamous Epith Cells 5 H (0-4) /hpf Amorphous Sediment Moderate H (None) /hpf Urine Bacteria Rare H (None) /hpf Urine Mucus Rare H (None) /hpf Urine HCG, Qual Not Detected (Not Detectd) Urine Opiates Screen Detected H (NotDetected) Ur Oxycodone Screen Not Detected (NotDetected) Urine Methadone Screen Not Detected (NotDetected) Ur Barbiturates Screen Not Detected (NotDetected) U Tricyclic Antidepress Detected H (NotDetected) Ur Phencyclidine Scrn Not Detected (NotDetected) Ur Amphetamines Screen Not Detected (NotDetected) U Methamphetamines Scrn Not Detected (NotDetected) U Benzodiazepines Scrn Not Detected (NotDetected) Urine Cocaine Screen Not Detected (NotDetected) U Marijuana (THC) Screen Detected H (NotDetected) Disposition Clinical Impression: Intractable nausea and vomiting Disposition: ADMITTED IP TO THIS [facility] Condition: Stable Time of Disposition: 14:40
[2023-11-27] MEDS: METOCLOPRAMIDE 5 MG/ML 2 ML VIAL IVP STA ×2 (10:54→13:19)
[2023-11-27] MEDS: SODIUM CHLORIDE 0.9% 1,000 ML IV STA ×2 (10:55→14:19)
[2023-11-27 11:33] LABS: ALT 59 U/L (4-34); AST 36 U/L (14-36); African American GFR (CKD) >90 (>60 ml/min/1.73 sqM); Albumin 4.9 g/dL (3.5-5.0); Alkaline Phosphatase 127 U/L (38-126); Amylase 67 U/L (30-110); Anion Gap 15 mmol/L; Blood Urea Nitrogen 21 mg/dL (7-17); Calcium 9.9 mg/dL (8.4-10.2); Carbon Dioxide 18 mmol/L (22-30); Chloride 105 mmol/L (98-107); Glucose 117 mg/dL (74-99); Lipase 79 U/L (23-300); Non-African American GFR(CKD) 90 (>60 ml/min/1.73 sqM); Potassium 3.5 mmol/L (3.5-5.1); Sodium 138 mmol/L (137-145); Total Bilirubin 0.7 mg/dL (0.2-1.3); Total Protein 8.1 g/dL (6.3-8.2)
[2023-11-27 11:39] LABS: Basophils # (A) 0.1 k/uL (0-0.2); Basophils % (A) 1 %; Eosinophils % (A) 0 %; HCT 37.7 % (34.0-46.0); HGB 12.6 gm/dL (11.4-16.0); Lymphocytes # (A) 1.6 k/uL (1.0-4.8); Lymphocytes % (A) 18 %; MCH 27.4 pg (25.0-35.0); MCHC 33.4 g/dL (31.0-37.0); MCV 81.9 fL (80.0-100.0); Mean Platelet Volume 8.3; Monocytes # (A) 0.3 k/uL (0-1.0); Monocytes % (A) 4 %; Neutrophils # (A) 6.7 k/uL (1.3-7.7); Neutrophils % (A) 77 %; Platelet Count 287 k/uL (150-450); RDW 14.1 % (11.5-15.5); WBC 8.8 k/uL (3.8-10.6)
[2023-11-27] MEDS: SCOPOLAMINE 1 MG/72 HR PATCH TRANSDERM STA (12:00)
[2023-11-27 12:09] LABS: Amorphous Sediment,Urine Moderate /hpf; Appearance,Urine Cloudy (Clear); Bacteria,Urine Rare /hpf; Bilirubin,Urine Negative (Negative); Blood,Urine Negative (Negative); Color,Urine Colorless; Glucose,Urine (UA) Negative (Negative); Ketones,Urine 1+ (Negative); Leukocyte Esterase,Urine Negative (Negative); Mucus,Urine Rare /hpf; Nitrite,Urine Negative (Negative); Protein,Urine Negative (Negative); RBC,Urine 1 /hpf (0-5); Specific Gravity,Urine 1.016 (1.001-1.035); Squamous Epithelial Cell,Urine 5 /hpf (0-4); Urobilinogen,Urine <2.0 mg/dL (<2.0); WBC,Urine 2 /hpf (0-5)
[2023-11-27 12:19] LABS: Amphetamine Screen,Urine Not Detected (NotDetected); Barbiturate Screen,Urine Not Detected (NotDetected); Benzodiazepines Screen,Urine Not Detected (NotDetected); Cocaine Screen,Urine Not Detected (NotDetected); Methadone Screen, Urine Not Detected (NotDetected); Opiate Screen,Urine Detected (NotDetected); Oxycodone Screen, Urine Not Detected (NotDetected); Phencyclidine Screen,Urine Not Detected (NotDetected); Tricyclic Antidepressant,Urine Detected (NotDetected); Urn Cannabinoid Scrn Detected (NotDetected)
[2023-11-27] MEDS: KETOROLAC 15 MG/ML 1 ML VIAL IVP STA (12:34)
[2023-11-27] MEDS: FAMOTIDINE 20 MG/2 ML VIAL IV STA (13:18)
[2023-11-27] MEDS: ONDANSETRON 4 MG/2 ML VIAL IVP STA (13:21)
[2023-11-27] MEDS ORDERED: KETOROLAC 15 MG/ML 1 ML VIAL IVP PRN (14:40)
[2023-11-27] MEDS ORDERED: NALOXONE 0.4 MG/ML 1 ML VIAL IV PRN (14:40)
[2023-11-27] MEDS: LACTATED RINGERS 1,000 ML IV ONE (16:24)
[2023-11-27] MEDS: ALPRAZolam 0.5 MG TAB PO PRN (17:13)
[2023-11-27] MEDS ORDERED: PANTOPRAZOLE 40 MG TABLET PO PRN (17:51)
[2023-11-27] MEDS ORDERED: AMITRIPTYLINE HCL 25 MG TAB PO PRN (17:51)
[2023-11-27] MEDS: ENOXAPARIN 40 MG/0.4 ML SYRINGE SQ SCH (19:01)
--- NOTE | 2023-11-27 22:11 | P.HPIM ---
History of Present Illness H&P Date: 11/27/23 Chief Complaint: Nausea vomiting This is a very pleasant 43-year-old patient, follows with Dr. Cynthia Fox. Chronic stable medical conditions include fibromyalgia, hypothyroid, herniated disc of the lower back. Peripheral neuropathy. Thyroid nodules being worked up outpatient. Environmental allergies. IBS was diagnosed in 2019. Patient is followed up with Dr. Hermelinda Allison from GI. Has had endoscopy that showed hiatal hernia. Normally patient has a daily bowel movement. Quite often times she will have nausea which is rather chronic and she gets the shaking feeling inside for which she takes amitriptyline. She is also been diagnosed with nonalcoholic fatty liver disease. Patient has these episodes of increased nausea vomiting it comes and goes. Normally these episodes she will also have 1 loose stool. And gets abdominal discomfort from nausea and vomiting. On this episode patient's symptoms started 2 days ago. Had 1 loose stool. Denies any fever and chills. Tired. Not able to keep anything down. Patient mother at the bedside in the ER. Review of systems: GEN.: Tired EYES: None HEENT: None NECK: None RESPIRATORY: None CARDIOVASCULAR: None GASTROINTESTINAL: As above e GENITOURINARY: None MUSCULOSKELETAL: Chronic low back pain LYMPHATICS: None HEMATOLOGICAL: None PSYCHIATRY: Anxiety NEUROLOGICAL: As above e Social history: Patient smoked a pack a day for 26 years. Stopped 2018. Patient does vaping and smokes marijuana. Lives with her fianc. Patient has medical marijuana both for pain and nausea. Physical examination: VITAL SIGNS: 99.1, 89, 17, 169 x 108, 99% room air [patient rather uncomfortable during this blood pressure reading GENERAL: BMI 27.1, laying in bed uncomfortable. EYES: Pupils equal. Conjunctiva robert l. HEENT: External appearance of nose and ears normal, oral cavity grossly normal. NECK: JVD not raised; masses not palpable. HEART: First and second heart sounds are normal; no edema. LUNGS: Respiratory rate normal; decreased breath sound. ABDOMEN: Soft, nontender, liver spleen not palpable, no masses palpable. PSYCH: [Alert and oriented x3; mood and affect anxious l. MUSCULOSKELETAL:No Clubbing/cyanosis;muscles-grossly intact NEUROLOGICAL: Cranial nerves grossly intact; no facial asymmetry, power and sensation grossly intact. LYMPHATICS: No lymph nodes palpable in the axilla and neck INVESTIGATIONS, reviewed in the clinical context: November 27, 2023: White count 8.8 hemoglobin 12.6 platelets 27 sodium 138 potassium 3.5 BUN 41 creatinine 0.8 AST 36 ALT 59 UA: Negative for nitrate leukoesterase Urine drug screen positive for opiates, tricyclic antidepressants, marijuana Assessment plan: -Acute episode of protracted nausea vomiting for last 2 days. Patient has a history of chronic nausea and IBS. Has follow-up with Dr. Hermelinda Allison. Has gastritis and hiatal hernia. Full liquid diet. Had 30 degrees elevated. Add Reglan. IV fluids Reglan -GERD PPI -Anxiety and depression otherwise specified Elavil. Prozac. -Nonalcoholic fatty liver disease Patient does follow with Dr. Hermelinda Allison -Herniated disc disease lumbar spine. Uses [place] as needed. Hold for now Care was discussed with the patient mother at the bedside. Questions answered. Past Medical History Past Medical History: Fibromyalgia, Thyroid Disorder Additional Past Medical History / Comment(s): DDD, bulging discs, neuropathy in legs, thyroid nodules, anemia, environmental allergies, constipation/diarrhea, IBS diagnosed in 2019, chronic gastritis, GERD. History of Any Multi-Drug Resistant Organisms: None Reported Past Surgical History: Hysterectomy, Orthopedic Surgery Additional Past Surgical History / Comment(s): Right wrist and forearm surgery, D&C, mass on vocal cords - surgery and biopsy. Past Anesthesia/Blood Transfusion Reactions: Postoperative Nausea & Vomiting (PONV) Additional Past Anesthesia/Blood Transfusion Reaction / Comment(s): Constipation post-op. Past Psychological History: Anxiety Smoking Status: Former smoker, Vaper Past Alcohol Use History: None Reported Past Drug Use History: Marijuana - Past Family History Mother Family Medical History: No Reported History Father Family Medical History: COPD Additional Family Medical History / Comment(s): "Cardiovascular swelling". Medications and Allergies Home Medications Medication Instructions Recorded Confirmed Type HYDROcodone/APAP 10-325MG [[place] 1 tab PO TID PRN 04/03/17 11/27/23 History 10-325] Amitriptyline HCl [Elavil] 25 mg PO HS PRN 07/08/23 11/27/23 History Dicyclomine [Bentyl] 20 mg PO QID PRN 07/08/23 11/27/23 History Promethazine [Phenergan] 12.5 mg PO DAILY PRN 07/08/23 11/27/23 History Ondansetron Odt [Zofran ODT] 4 mg PO Q8HR PRN #30 tab 10/14/23 11/27/23 Rx Promethazine Suppository 25 mg RECTAL QID PRN #30 supp 10/14/23 11/27/23 Rx [Phenergan] FLUoxetine HCL 20 mg PO DAILY 10/15/23 11/27/23 History Naloxone HCl 4 mg NASAL DIRECTED PRN 10/15/23 11/27/23 History Pantoprazole Sodium [Protonix] 40 mg PO AC-BID PRN 10/15/23 11/27/23 History Allergies Allergy/AdvReac Type Severity Reaction Status Date / Time propoxyphene Allergy Rash/Hives Verified 11/27/23 13:09 [From Sissy] Physical Exam Vitals: Vital Signs Temp Pulse Pulse Resp BP BP Pulse Ox 11/27/23 20:00 98.7 F 94 18 170/83 95 11/27/23 19:00 99.1 F 89 17 169/108 99 11/27/23 17:50 70 18 158/108 97 11/27/23 17:12 99.1 F 88 20 169/105 99 11/27/23 12:36 98.2 F 94 18 140/101 98 11/27/23 10:20 97.9 F 82 20 177/114 99 Intake and Output 11/27/23 11/27/23 11/27/23 06:59 14:59 22:59 Other: Weight 76.204 kg Results CBC & Chem 7: 11/27/23 10:57 11/27/23 11:04 Labs: Abnormal Lab Results - Last 24 Hours (Table) 11/27/23 11/27/23 11/27/23 Range/Units 11:04 11:37 11:37 Carbon Dioxide 18 L (22-30) mmol/L BUN 21 H (7-17) mg/dL Glucose 117 H (74-99) mg/dL ALT 59 H (4-34) U/L Alkaline Phosphatase 127 H (38-126) U/L Urine Appearance Cloudy H (Clear) Urine Ketones 1+ H (Negative) Ur Squamous Epith Cells 5 H (0-4) /hpf Amorphous Sediment Moderate H (None) /hpf Urine Bacteria Rare H (None) /hpf Urine Mucus Rare H (None) /hpf Urine Opiates Screen Detected H (NotDetected) U Tricyclic Antidepress Detected H (NotDetected) U Marijuana (THC) Screen Detected H (NotDetected)
[2023-11-27] MEDS: LORazepam 2 MG/ML INJ IV PRN (22:56)
[2023-11-28 01:10] VITALS: RESP 16
[2023-11-28] MEDS: METOCLOPRAMIDE 5 MG TAB PO SCH (06:21)
[2023-11-28] MEDS: FLUoxetine HCL 20 MG CAP PO SCH (08:30)
[2023-11-28 09:16] VITALS: BP 91/65; PULSE 89; TEMP 98.4
--- NOTE | 2023-11-28 16:20 | P.DS ---
Providers Date of admission: 11/27/23 14:01 Expected date of discharge: 11/28/23 Attending physician: Lowell Mendosa Primary care physician: Cynthia Fox [facility] Course: Chief Complaint: Nausea vomiting This is a very pleasant 43-year-old patient, follows with Dr. Cynthia Fox. Chronic stable medical conditions include fibromyalgia, hypothyroid, herniated disc of the lower back. Peripheral neuropathy. Thyroid nodules being worked up outpatient. Environmental allergies. IBS was diagnosed in 2019. Patient is followed up with Dr. Hermelinda Allison from GI. Has had endoscopy that showed hiatal hernia. Normally patient has a daily bowel movement. Quite often times she will have nausea which is rather chronic and she gets the shaking feeling inside for which she takes amitriptyline. She is also been diagnosed with nonalcoholic fatty liver disease. Patient has these episodes of increased nausea vomiting it comes and goes. Normally these episodes she will also have 1 loose stool. And gets abdominal discomfort from nausea and vomiting. On this episode patient's symptoms started 2 days ago. Had 1 loose stool. Denies any fever and chills. Tired. Not able to keep anything down. Patient mother at the bedside in the ER. November 27: Patient feeling really well this morning. Up and about. No nausea. No abdominal pain. Feels well. Care was discussed. Will be discharged on a light diet. Social history: Patient smoked a pack a day for 26 years. Stopped 2018. Patient does vaping and smokes marijuana. Lives with her fianc. Patient has medical marijuana both for pain and nausea. Physical examination: VITAL SIGNS: 98.4, 89, 16, 91 x 65, 97% room air GENERAL: Comfortable EYES: Pupils equal. Conjunctiva robert l. HEENT: External appearance of nose and ears normal, oral cavity grossly normal. NECK: JVD not raised; masses not palpable. HEART: First and second heart sounds are normal; no edema. LUNGS: Respiratory rate normal; decreased breath sound. ABDOMEN: Soft, nontender, liver spleen not palpable, no masses palpable. PSYCH: [Alert and oriented x3; mood and affect normal MUSCULOSKELETAL:No Clubbing/cyanosis;muscles-grossly intact INVESTIGATIONS, reviewed in the clinical context: November 27, 2023: White count 8.8 hemoglobin 12.6 platelets 27 sodium 138 potassium 3.5 BUN 41 creatinine 0.8 AST 36 ALT 59 UA: Negative for nitrate leukoesterase Urine drug screen positive for opiates, tricyclic antidepressants, marijuana Assessment plan: -Acute episode of protracted nausea vomiting for last 2 days. Patient has a history of chronic nausea and IBS. Has follow-up with Dr. Hermelinda Allison. Has gastritis and hiatal hernia.: Resolved Received IV fluids. Light diet -GERD PPI -Anxiety and depression otherwise specified Elavil. Prozac. -Nonalcoholic fatty liver disease Patient does follow with Dr. Hermelinda Allison -Herniated disc disease lumbar spine. Uses [place] as needed. Hold for now Disposition: Home Past Medical History Past Medical History: Fibromyalgia, Thyroid Disorder Additional Past Medical History / Comment(s): DDD, bulging discs, neuropathy in legs, thyroid nodules, anemia, environmental allergies, constipation/diarrhea, IBS diagnosed in 2019, chronic gastritis, GERD. History of Any Multi-Drug Resistant Organisms: None Reported Past Surgical History: Hysterectomy, Orthopedic Surgery Additional Past Surgical History / Comment(s): Right wrist and forearm surgery, D&C, mass on vocal cords - surgery and biopsy. Past Anesthesia/Blood Transfusion Reactions: Postoperative Nausea & Vomiting (PONV) Additional Past Anesthesia/Blood Transfusion Reaction / Comment(s): Constipation post-op. Past Psychological History: Anxiety Smoking Status: Former smoker, Vaper Past Alcohol Use History: None Reported Past Drug Use History: Marijuana Plan - Discharge Summary New Discharge Prescriptions: Continue HYDROcodone/APAP 10-325MG [[place] 10-325] 1 tab PO TID PRN PRN Reason: Pain Dicyclomine [Bentyl] 20 mg PO QID PRN PRN Reason: IBS Promethazine Suppository [Phenergan] 25 mg RECTAL QID PRN #30 supp PRN Reason: Nausea And Vomiting Ondansetron Odt [Zofran ODT] 4 mg PO Q8HR PRN #30 tab PRN Reason: Nausea And Vomiting FLUoxetine HCL 20 mg PO DAILY Promethazine [Phenergan] 12.5 mg PO DAILY PRN PRN Reason: Nausea Amitriptyline HCl [Elavil] 25 mg PO HS PRN PRN Reason: Insomnia Naloxone HCl 4 mg NASAL DIRECTED PRN PRN Reason: accidental overdose Pantoprazole Sodium [Protonix] 40 mg PO AC-BID PRN PRN Reason: Heartburn/Gerd Discharge Medication List HYDROcodone/APAP 10-325MG [[place] 10-325] 1 tab PO TID PRN 04/03/17 [History] Amitriptyline HCl [Elavil] 25 mg PO HS PRN 07/08/23 [History] Dicyclomine [Bentyl] 20 mg PO QID PRN 07/08/23 [History] Promethazine [Phenergan] 12.5 mg PO DAILY PRN 07/08/23 [History] Ondansetron Odt [Zofran ODT] 4 mg PO Q8HR PRN #30 tab 10/14/23 [Rx] Promethazine Suppository [Phenergan] 25 mg RECTAL QID PRN #30 supp 10/14/23 [Rx] FLUoxetine HCL 20 mg PO DAILY 10/15/23 [History] Naloxone HCl 4 mg NASAL DIRECTED PRN 10/15/23 [History] Pantoprazole Sodium [Protonix] 40 mg PO AC-BID PRN 10/15/23 [History] Follow up Appointment(s)/Referral(s): Devika Allison MD [STAFF PHYSICIAN] - 2 Weeks Cynthia Fox MD [Primary Care Provider] - 1-2 days Patient Instructions/Handouts: Acute Nausea and Vomiting (DC) Discharge Disposition: HOME SELF-CARE
== END 2023-11-28 11:38 | disposition home or self-care (01) ==
LOC: EC 10:14 → 6NMEDSUR 14:01
PROVIDERS: ADMIT Hospitalist; ATTEND Hospitalist
DX: R11.2 Nausea with vomiting, unspecified (principal); K21.9 Gastro-esophageal reflux disease without esophagitis; K29.50 Unspecified chronic gastritis without bleeding; E03.9 Hypothyroidism, unspecified; F41.9 Anxiety disorder, unspecified; F32.A Depression, unspecified; K76.0 Fatty (change of) liver, not elsewhere classified; M51.26 Other intervertebral disc displacement, lumbar region; F17.290 Nicotine dependence, other tobacco product, uncomplicated; Z79.899 Other long term (current) drug therapy
CPT/HCPCS: 96376 ×2; 96372 ×2; 96375 ×2; 96361; 96374; 99285; 36415; 80053; 82150; 83605; 83690; 85025; 81001; 81025; 80306; G0378 ×2; J2060 ×2; J2765; J2405; J1650 ×2; J3490; J1885

== ENCOUNTER 2024-01-11 13:16 | Observation (INO) | payer MEDICARE, OTHER ==
[2024-01-11] MEDS: METOCLOPRAMIDE 5 MG/ML 2 ML VIAL IVP STA (14:22)
[2024-01-11] MEDS: LORazepam 2 MG/ML INJ IV STA (14:22)
[2024-01-11] MEDS: SODIUM CHLORIDE 0.9% 1,000 ML IV STA (14:24)
--- NOTE | 2024-01-11 14:33 | ED ---
Nausea/Vomiting/Diarrhea HPI - General Chief complaint: Nausea/Vomiting/Diarrhea Stated complaint: IBS Time Seen by Provider: 01/11/24 14:32 Source: patient, EMS, RN notes reviewed Mode of arrival: EMS Limitations: no limitations - History of Present Illness Initial comments: 43-year-old female presenting to the ER with a chief complaint of nausea and v omiting. Patient has a past medical history significant for IBS. Patient states she believes this is a IBS flareup. She states for the past 3 days she has been having nausea and vomiting. She does report diarrhea on day 1. She denies any hematemesis or hematochezia. She has taken Zofran without relief. Patient does follow-up with Dr. Allison. She does report abdominal pain from vomiting. She denies any fevers, chills, chest pain, shortness of breath, urinary complaints or peripheral edema. - Related Data Home Medications Medication Instructions Recorded Confirmed HYDROcodone/APAP 10-325MG [[place] 1 tab PO TID PRN 04/03/17 01/11/24 10-325] Amitriptyline HCl [Elavil] 25 mg PO HS PRN 07/08/23 01/11/24 Dicyclomine [Bentyl] 20 mg PO QID PRN 07/08/23 01/11/24 Promethazine [Phenergan] 12.5 mg PO DAILY PRN 07/08/23 01/11/24 FLUoxetine HCL 20 mg PO DAILY 10/15/23 01/11/24 Naloxone HCl 4 mg NASAL DIRECTED PRN 10/15/23 01/11/24 Pantoprazole Sodium [Protonix] 40 mg PO AC-BID PRN 10/15/23 01/11/24 Sucralfate [Carafate] 1 gm PO TID PRN 01/11/24 01/11/24 Previous Rx's Medication Instructions Recorded Ondansetron Odt [Zofran ODT] 4 mg PO Q8HR PRN #30 tab 10/14/23 Promethazine Suppository 25 mg RECTAL QID PRN #30 supp 10/14/23 [Phenergan] Allergies Allergy/AdvReac Type Severity Reaction Status Date / Time propoxyphene Allergy Rash/Hives Verified 01/11/24 13:35 [From Martha-Sumit] Review of Systems ROS Statement: Those systems with pertinent positive or pertinent negative responses have been documented in the HPI. ROS Other: All systems not noted in ROS Statement are negative. Past Medical History Past Medical History: Fibromyalgia, Thyroid Disorder Additional Past Medical History / Comment(s): DDD, bulging discs, neuropathy in legs, thyroid nodules, anemia, environmental allergies, constipation/diarrhea, IBS diagnosed in 2019, chronic gastritis, GERD. History of Any Multi-Drug Resistant Organisms: None Reported Past Surgical History: Hysterectomy, Orthopedic Surgery Additional Past Surgical History / Comment(s): Right wrist and forearm surgery, D&C, mass on vocal cords - surgery and biopsy. Past Anesthesia/Blood Transfusion Reactions: Postoperative Nausea & Vomiting (PONV) Additional Past Anesthesia/Blood Transfusion Reaction / Comment(s): Constipation post-op. Past Psychological History: Anxiety Smoking Status: Former smoker, Vaper Past Alcohol Use History: None Reported Past Drug Use History: Marijuana - Past Family History Mother Family Medical History: No Reported History Father Family Medical History: COPD Additional Family Medical History / Comment(s): "Cardiovascular swelling". General Exam Limitations: no limitations General appearance: alert, in no apparent distress Respiratory exam: Present: normal lung sounds bilaterally. Absent: respiratory distress, wheezes, rales, rhonchi, stridor Cardiovascular Exam: Present: regular rate, normal rhythm, normal heart sounds. Absent: systolic murmur, diastolic murmur, rubs, gallop, clicks GI/Abdominal exam: Present: soft, normal bowel sounds. Absent: distended, tenderness, guarding, rebound, rigid Neurological exam: Present: alert, oriented X3, CN II-XII intact Skin exam: Present: warm, dry, intact, normal color. Absent: rash Course Vital Signs 01/11/24 13:35 Temperature 98.2 F Pulse Rate 89 Respiratory 20 Rate Blood Pressure 176/107 O2 Sat by Pulse 100 Oximetry - Reevaluation(s) Reevaluation #1: 01/11/24 17:27 Case discussed with KORY Driscoll, who accepts medical admission. Medical Decision Making - Medical Decision Making Was pt. sent in by a medical professional or institution (, PA, MILK VENDOR, urgent care, hospital, or skilled nursing...) When possible be specific @ -No Did you speak to anyone other than the patient for history (EMS, parent, family, police, friend...)? What history was obtained from this source @ -No Did you review nursing and triage notes (agree or disagree)? Why? @ -I reviewed and agree with nursing and triage notes Were old charts reviewed (outside hosp., previous admission, EMS record, old EKG, old radiological studies, urgent care reports/EKG's, skilled nursing records)? Report findings @ -No old charts were reviewed Differential Diagnosis (chest pain, altered mental status, abdominal pain women, abdominal pain men, vaginal bleeding, weakness, fever, dyspnea, syncope, headache, dizziness, GI bleed, back pain, seizure, CVA, palpatations, mental health, musculoskeletal)? @ -Differential Abdominal Pain Women: Appendicitis, Cholecystitis, diverticulosis, ischemic bowel, pancreatitis, hepatitis, UTI, gastroenteritis, AAA, incarcerated hernia, bowel obstruction, constipation, inflammatory bowel, hepatitis, peptic ulcer disease, splenic infarction, perforated viscus, vulvitis, ovarian torsion, PID, kidney stone, placenta abruption, this is not meant to be an all-inclusive list EKG interpreted by me (3pts min.). @ -None X-rays interpreted by me (1pt min.). @ -None done CT interpreted by me (1pt min.). @ -None done U/S interpreted by me (1pt. min.). @ -None done What testing was considered but not performed or refused? (CT, X-rays, U/S, labs)? Why? @ -CT abdomen pelvis considered but not performed as patient had no focal abdominal tenderness and patient history. Patient was agreeable for laboratory studies and symptomatic control. @ -None Did you discuss the management of the patient with other professionals (professionals i.e. , PA, MILK VENDOR, lab, RT, psych nurse, social service worker, carbon blocks press operator, teacher, sports development officer, case finisher)? Give summary @ -Yes, case discussed with KORY Driscoll, who accepts medical admission. Was smoking cessation discussed for >3mins.? @ -No Was critical care preformed (if so, how long)? @ -No Were there social determinants of health that impacted care today? How? (Homelessness, low income, unemployed, alcoholism, drug addiction, transportation, low edu. Level, literacy, decrease access to med. care, fpc, rehab)? @ -No Was there de-escalation of care discussed even if they declined (Discuss DNR or withdrawal of care, Hospice)? DNR status @ -No What co-morbidities impacted this encounter? (DM, HTN, Smoking, COPD, CAD, Cancer, CVA, ARF, Chemo, Hep., AIDS, mental health diagnosis, sleep apnea, morbid obesity)? @ -IBS Was patient admitted / discharged? Hospital course, mention meds given and route, prescriptions, significant lab abnormalities, going to OR and other pertinent info. @ -Admitted. 43-year-old female presented to the ER with chief complaint nausea and vomiting. History and physical exam completed. Vitals for a blood pressure of 176/107 upon examination, otherwise stable. Elevated BP beleived to be due to anxiety and vomiting. Patient in no signs of acute distress and nontoxic-appearing. No focal abdominal tenderness with normal bowel sounds. Laboratory studies obtained significant for white blood cell count 12.1 with a left shift which is likely reactive from nausea and vomiting. CMP obtained unimpressive. Patient received IV fluids, Ativan, Zofran and Reglan without improvement of symptoms in the ER. Admission considered for intractable nausea vomiting and need for IV fluids. Case discussed with KORY Driscoll, who accepts medical admission. Patient agreeable for admission. Case discussed with ED attending, Dr. Blood. Undiagnosed new problem with uncertain prognosis? @ -No Drug Therapy requiring intensive monitoring for toxicity (Heparin, Nitro, Insulin, Cardizem)? @ -No Were any procedures done? @ -No Diagnosis/symptom? @ -Intractable nausea vomiting Acute, or Chronic, or Acute on Chronic? @ -Acute Uncomplicated (without systemic symptoms) or Complicated (systemic symptoms)? @ -Uncomplicated Side effects of treatment? @ -No Exacerbation, Progression, or Severe Exacerbation? @ -No Poses a threat to life or bodily function? How? (Chest pain, USA, MS, pneumonia, PE, COPD, DKA, ARF, appy, cholecystitis, CVA, Diverticulitis, Homicidal, Suicidal, threat to staff... and all critical care pts) @ -No - Lab Data Result diagrams: 01/11/24 14:21 01/11/24 14:21 Lab Results 01/11/24 01/11/24 01/11/24 Range/Units 14:21 14:21 14:21 WBC 12.1 H (3.8-10.6) k/uL RBC 4.95 (3.80-5.40) m/uL Hgb 12.8 (11.4-16.0) gm/dL Hct 39.2 (34.0-46.0) % MCV 79.3 L (80.0-100.0) fL MCH 25.8 (25.0-35.0) pg MCHC 32.5 (31.0-37.0) g/dL RDW 15.7 H (11.5-15.5) % Plt Count 283 (150-450) k/uL MPV 8.1 Neutrophils % 85 % Lymphocytes % 11 % Monocytes % 3 % Eosinophils % 0 % Basophils % 0 % Neutrophils # 10.3 H (1.3-7.7) k/uL Lymphocytes # 1.3 (1.0-4.8) k/uL Monocytes # 0.4 (0-1.0) k/uL Eosinophils # 0.1 (0-0.7) k/uL Basophils # 0.0 (0-0.2) k/uL Sodium 138 (137-145) mmol/L Potassium 3.6 (3.5-5.1) mmol/L Chloride 103 (98-107) mmol/L Carbon Dioxide 21 L (22-30) mmol/L Anion Gap 14 mmol/L BUN 18 H (7-17) mg/dL Creatinine 0.88 (0.52-1.04) mg/dL Est GFR (CKD-EPI)AfAm >90 (>60 ml/min/1.73 sqM) Est GFR (CKD-EPI)NonAf 80 (>60 ml/min/1.73 sqM) Glucose 108 H (74-99) mg/dL Plasma Lactic Acid Zaid 1.3 (0.7-2.0) mmol/L Calcium 9.3 (8.4-10.2) mg/dL Total Bilirubin 0.6 (0.2-1.3) mg/dL AST 32 (14-36) U/L ALT 36 H (4-34) U/L Alkaline Phosphatase 117 (38-126) U/L Total Protein 7.9 (6.3-8.2) g/dL Albumin 4.6 (3.5-5.0) g/dL Amylase 57 (30-110) U/L Lipase 92 (23-300) U/L Disposition Clinical Impression: Intractable nausea and vomiting Disposition: ADMITTED IP TO THIS [facility] Condition: Stable Referrals: Cynthia Fox MD [Primary Care Provider] - 1-2 days Time of Disposition: 17:00
[2024-01-11 14:44] LABS: Basophils % (A) 0 %; Eosinophils # (A) 0.1 k/uL (0-0.7); Eosinophils % (A) 0 %; HCT 39.2 % (34.0-46.0); HGB 12.8 gm/dL (11.4-16.0); Lymphocytes # (A) 1.3 k/uL (1.0-4.8); Lymphocytes % (A) 11 %; MCH 25.8 pg (25.0-35.0); MCHC 32.5 g/dL (31.0-37.0); MCV 79.3 fL (80.0-100.0); Mean Platelet Volume 8.1; Monocytes # (A) 0.4 k/uL (0-1.0); Monocytes % (A) 3 %; Neutrophils # (A) 10.3 k/uL (1.3-7.7); Neutrophils % (A) 85 %; Platelet Count 283 k/uL (150-450); RBC 4.95 m/uL (3.80-5.40); RDW 15.7 % (11.5-15.5); WBC 12.1 k/uL (3.8-10.6)
[2024-01-11 15:03] LABS: ALT 36 U/L (4-34); AST 32 U/L (14-36); African American GFR (CKD) >90 (>60 ml/min/1.73 sqM); Albumin 4.6 g/dL (3.5-5.0); Alkaline Phosphatase 117 U/L (38-126); Amylase 57 U/L (30-110); Anion Gap 14 mmol/L; Blood Urea Nitrogen 18 mg/dL (7-17); Calcium 9.3 mg/dL (8.4-10.2); Carbon Dioxide 21 mmol/L (22-30); Chloride 103 mmol/L (98-107); Glucose 108 mg/dL (74-99); Lipase 92 U/L (23-300); Non-African American GFR(CKD) 80 (>60 ml/min/1.73 sqM); Potassium 3.6 mmol/L (3.5-5.1); Sodium 138 mmol/L (137-145); Total Bilirubin 0.6 mg/dL (0.2-1.3); Total Protein 7.9 g/dL (6.3-8.2)
[2024-01-11] MEDS: ONDANSETRON 4 MG/2 ML VIAL IVP STA (16:34)
[2024-01-11] MEDS ORDERED: NALOXONE 0.4 MG/ML 1 ML VIAL IV PRN (17:26)
[2024-01-11] MEDS ORDERED: PANTOPRAZOLE 40 MG TABLET PO PRN (18:06)
[2024-01-11] MEDS: SODIUM CHLORIDE 0.9% 1,000 ML IV SCH (18:17)
[2024-01-11] MEDS: AMITRIPTYLINE HCL 25 MG TAB PO PRN (22:41)
[2024-01-11] MEDS: HYDROmorphone 1 MG/ML 1 ML SYRINGE IVP PRN (22:41)
[2024-01-12 03:01] VITALS: PULSE 80; RESP 16
[2024-01-12] MEDS: ONDANSETRON 4 MG/2 ML VIAL IVP PRN (03:10)
[2024-01-12 08:45] VITALS: BP 108/72; TEMP 98.2
[2024-01-12] MEDS: FLUoxetine HCL 20 MG CAP PO SCH (10:00)
--- NOTE | 2024-01-12 11:49 | P.HPIM ---
History of Present Illness 42-year-old female came with complaints of nausea vomiting patient has a history of severe gastritis and irritable bowel syndrome patient is on multiple medications for that and following with gastroenterology as an outpatient. Patient is feeling better today. Patient received IV Protonix. Patient will be started on soft diet if she can tolerate patient will be discharged today to follow-up with Dr. Rodriguez as an outpatient. Patient had history of scopes in the past patient denies any hematemesis or hematochezia. Patient has some abdominal discomfort as well because of nausea vomiting. REVIEW OF SYSTEMS: CONSTITUTIONAL: No fever, no malaise, no fatigue. HEENT: No recent visual problems or hearing problems. Denied any sore throat. CARDIOVASCULAR: No chest pain, orthopnea, PND, no palpitations, no syncope. PULMONARY: No shortness of breath, no cough, no hemoptysis. GASTROINTESTINAL: As mentioned in HPI NEUROLOGICAL: No headaches, no weakness, no numbness. HEMATOLOGICAL: Denies any bleeding or petechiae. GENITOURINARY: Denies any burning micturition, frequency, or urgency. MUSCULOSKELETAL/RHEUMATOLOGICAL: Denies any joint pain, swelling, or any muscle pain. ENDOCRINE: Denies any polyuria or polydipsia. The rest of the 14-point review of systems is negative. PHYSICAL EXAMINATION: GENERAL: The patient is alert and oriented x3, not in any acute distress. Well developed, well nourished. HEENT: Pupils are round and equally reacting to light. EOMI. No scleral icterus. No conjunctival pallor. Normocephalic, atraumatic. No pharyngeal erythema. No thyromegaly. CARDIOVASCULAR: S1 and S2 present. No murmurs, rubs, or gallops. PULMONARY: Chest is clear to auscultation, no wheezing or crackles. ABDOMEN: Soft, nontender, nondistended, normoactive bowel sounds. No palpable organomegaly. MUSCULOSKELETAL: No joint swelling or deformity. EXTREMITIES: No cyanosis, clubbing, or pedal edema. NEUROLOGICAL: Gross neurological examination did not reveal any focal deficits. SKIN: No rashes. Assessment and plan -Nausea vomiting, abdominal pain: Secondary to severe gastritis symptoms improved at this time. Patient also was diagnosed with irritable bowel syndrome. Patient is clinically doing well patient has sucralfate and Protonix twice a day at home which she will continue and will see gastroenterology as an outpatient. -Fibromyalgia -Hypothyroidism Patient can continue rest of her home medications without any changes. Patient will be discharged today if she can tolerate diet today Past Medical History Past Medical History: Fibromyalgia, Thyroid Disorder Additional Past Medical History / Comment(s): DDD, bulging discs, neuropathy in legs, thyroid nodules, anemia, environmental allergies, constipation/diarrhea, IBS diagnosed in 2019, chronic gastritis, GERD. History of Any Multi-Drug Resistant Organisms: None Reported Past Surgical History: Hysterectomy, Orthopedic Surgery Additional Past Surgical History / Comment(s): Right wrist and forearm surgery, D&C, mass on vocal cords - surgery and biopsy. Past Anesthesia/Blood Transfusion Reactions: Postoperative Nausea & Vomiting (PONV) Additional Past Anesthesia/Blood Transfusion Reaction / Comment(s): Constipation post-op. Past Psychological History: Anxiety Smoking Status: Former smoker, Vaper Past Alcohol Use History: None Reported Additional Past Alcohol Use History / Comment(s): Quit smoking in 2019, history of 1 PPD. Started smoking at age 14. Pt vapes and smokes marajuana Past Drug Use History: Marijuana Additional Drug Use History / Comment(s): last smoked marijauna 5 days ago - Past Family History Mother Family Medical History: No Reported History Father Family Medical History: COPD Additional Family Medical History / Comment(s): "Cardiovascular swelling". Medications and Allergies Home Medications Medication Instructions Recorded Confirmed Type HYDROcodone/APAP 10-325MG [[place] 1 tab PO TID PRN 04/03/17 01/11/24 History 10-325] Amitriptyline HCl [Elavil] 25 mg PO HS PRN 07/08/23 01/11/24 History Dicyclomine [Bentyl] 20 mg PO QID PRN 07/08/23 01/11/24 History Promethazine [Phenergan] 12.5 mg PO DAILY PRN 07/08/23 01/11/24 History Ondansetron Odt [Zofran ODT] 4 mg PO Q8HR PRN #30 tab 10/14/23 01/11/24 Rx Promethazine Suppository 25 mg RECTAL QID PRN #30 supp 10/14/23 01/11/24 Rx [Phenergan] FLUoxetine HCL 20 mg PO DAILY 10/15/23 01/11/24 History Naloxone HCl 4 mg NASAL DIRECTED PRN 10/15/23 01/11/24 History Pantoprazole Sodium [Protonix] 40 mg PO AC-BID PRN 10/15/23 01/11/24 History Sucralfate [Carafate] 1 gm PO TID PRN 01/11/24 01/11/24 History Allergies Allergy/AdvReac Type Severity Reaction Status Date / Time propoxyphene Allergy Rash/Hives Verified 01/11/24 13:35 [From ArthuryosiSumit] Physical Exam Vitals: Vital Signs Temp Pulse Pulse Resp BP BP Pulse Ox 01/12/24 07:25 98.2 F 80 16 108/72 98 01/12/24 02:00 98.3 F 80 16 113/70 96 01/12/24 00:23 104 H 01/11/24 22:17 98.1 F 104 H 18 122/86 96 01/11/24 21:57 96 16 119/80 94 L 01/11/24 20:42 99.5 F 101 H 16 178/110 98 01/11/24 18:50 98.3 F 100 17 161/99 98 01/11/24 13:35 98.2 F 89 20 176/107 100 Intake and Output 01/11/24 01/12/24 01/12/24 22:59 06:59 14:59 Intake Total 100 Balance 100 Intake: Oral 100 Other: Voiding Method Toilet # Voids 2 Weight 76.204 kg Results CBC & Chem 7: 01/11/24 14:21 01/11/24 14:21 Labs: Abnormal Lab Results - Last 24 Hours (Table) 01/11/24 01/11/24 Range/Units 14:21 14:21 WBC 12.1 H (3.8-10.6) k/uL MCV 79.3 L (80.0-100.0) fL RDW 15.7 H (11.5-15.5) % Neutrophils # 10.3 H (1.3-7.7) k/uL Carbon Dioxide 21 L (22-30) mmol/L BUN 18 H (7-17) mg/dL Glucose 108 H (74-99) mg/dL ALT 36 H (4-34) U/L Thrombosis Risk Factor Assmnt - Choose All That Apply Any of the Below Risk Factors Present?: Yes Each Factor Represents 1 point: Age 41-60 years, Hx of IBD Other Risk Factors: No Other congenital or acquired thrombophilia - If yes, enter type in comment: No Thrombosis Risk Factor Assessment Total Risk Factor Score: 2 Thrombosis Risk Factor Assessment Level: Low Risk
--- NOTE | 2024-01-12 11:50 | P.DS ---
Providers Date of admission: 01/11/24 21:17 Attending physician: Leonardo Villarreal Primary care physician: Cynthia Fox [facility] Hospital Course: 42-year-old female came with complaints of nausea vomiting patient has a history of severe gastritis and irritable bowel syndrome patient is on multiple medications for that and following with gastroenterology as an outpatient. Patient is feeling better today. Patient received IV Protonix. Patient will be started on soft diet if she can tolerate patient will be discharged today to follow-up with Dr. Rodriguez as an outpatient. Patient had history of scopes in the past patient denies any hematemesis or hematochezia. Patient has some abdominal discomfort as well because of nausea vomiting. REVIEW OF SYSTEMS: CONSTITUTIONAL: No fever, no malaise, no fatigue. HEENT: No recent visual problems or hearing problems. Denied any sore throat. CARDIOVASCULAR: No chest pain, orthopnea, PND, no palpitations, no syncope. PULMONARY: No shortness of breath, no cough, no hemoptysis. GASTROINTESTINAL: As mentioned in HPI NEUROLOGICAL: No headaches, no weakness, no numbness. HEMATOLOGICAL: Denies any bleeding or petechiae. GENITOURINARY: Denies any burning micturition, frequency, or urgency. MUSCULOSKELETAL/RHEUMATOLOGICAL: Denies any joint pain, swelling, or any muscle pain. ENDOCRINE: Denies any polyuria or polydipsia. The rest of the 14-point review of systems is negative. PHYSICAL EXAMINATION: GENERAL: The patient is alert and oriented x3, not in any acute distress. Well developed, well nourished. HEENT: Pupils are round and equally reacting to light. EOMI. No scleral icterus. No conjunctival pallor. Normocephalic, atraumatic. No pharyngeal erythema. No thyromegaly. CARDIOVASCULAR: S1 and S2 present. No murmurs, rubs, or gallops. PULMONARY: Chest is clear to auscultation, no wheezing or crackles. ABDOMEN: Soft, nontender, nondistended, normoactive bowel sounds. No palpable organomegaly. MUSCULOSKELETAL: No joint swelling or deformity. EXTREMITIES: No cyanosis, clubbing, or pedal edema. NEUROLOGICAL: Gross neurological examination did not reveal any focal deficits. SKIN: No rashes. Assessment and plan -Nausea vomiting, abdominal pain: Secondary to severe gastritis symptoms i mproved at this time. Patient also was diagnosed with irritable bowel syndrome. Patient is clinically doing well patient has sucralfate and Protonix twice a day at home which she will continue and will see gastroenterology as an outpatient. -Fibromyalgia -Hypothyroidism Patient can continue rest of her home medications without any changes. Patient will be discharged today if she can tolerate diet today Patient Condition at Discharge: Stable Plan - Discharge Summary Discharge Rx Participant: No New Discharge Prescriptions: No Action HYDROcodone/APAP 10-325MG [[place] 10-325] 1 tab PO TID PRN PRN Reason: Pain Dicyclomine [Bentyl] 20 mg PO QID PRN PRN Reason: IBS Promethazine Suppository [Phenergan] 25 mg RECTAL QID PRN #30 supp PRN Reason: Nausea And Vomiting Ondansetron Odt [Zofran ODT] 4 mg PO Q8HR PRN #30 tab PRN Reason: Nausea And Vomiting FLUoxetine HCL 20 mg PO DAILY Promethazine [Phenergan] 12.5 mg PO DAILY PRN PRN Reason: Nausea Amitriptyline HCl [Elavil] 25 mg PO HS PRN PRN Reason: Insomnia Naloxone HCl 4 mg NASAL DIRECTED PRN PRN Reason: accidental overdose Pantoprazole Sodium [Protonix] 40 mg PO AC-BID PRN PRN Reason: Heartburn/Gerd Sucralfate [Carafate] 1 gm PO TID PRN PRN Reason: Gi Upset Discharge Medication List HYDROcodone/APAP 10-325MG [[place] 10-325] 1 tab PO TID PRN 04/03/17 [History] Amitriptyline HCl [Elavil] 25 mg PO HS PRN 07/08/23 [History] Dicyclomine [Bentyl] 20 mg PO QID PRN 07/08/23 [History] Promethazine [Phenergan] 12.5 mg PO DAILY PRN 07/08/23 [History] Ondansetron Odt [Zofran ODT] 4 mg PO Q8HR PRN #30 tab 10/14/23 [Rx] Promethazine Suppository [Phenergan] 25 mg RECTAL QID PRN #30 supp 10/14/23 [Rx] FLUoxetine HCL 20 mg PO DAILY 10/15/23 [History] Naloxone HCl 4 mg NASAL DIRECTED PRN 10/15/23 [History] Pantoprazole Sodium [Protonix] 40 mg PO AC-BID PRN 10/15/23 [History] Sucralfate [Carafate] 1 gm PO TID PRN 01/11/24 [History] Follow up Appointment(s)/Referral(s): Cynthia Fox MD [Primary Care Provider] - 3 Days Discharge Disposition: HOME SELF-CARE
[2024-01-12] MEDS: MAG HYDROX/AL HYDROX/SIMETH 30 ML CUP PO SCH (12:34)
== END 2024-01-12 15:29 | disposition home or self-care (01) ==
LOC: EC 13:16 → 6NMEDSUR 21:17
PROVIDERS: ADMIT Hospitalist; ATTEND Hospitalist
DX: K29.70 Gastritis, unspecified, without bleeding (principal); K58.0 Irritable bowel syndrome with diarrhea; E03.9 Hypothyroidism, unspecified; M79.7 Fibromyalgia; R03.0 Elevated blood-pressure reading, without diagnosis of hypertension; F41.9 Anxiety disorder, unspecified; F17.290 Nicotine dependence, other tobacco product, uncomplicated; Z79.899 Other long term (current) drug therapy; Z88.5 Allergy status to narcotic agent
CPT/HCPCS: 96376; 96375 ×2; 96374; 99285; 36415; 80053; 82150; 83605; 83690; 85025; 87040; G0378 ×2; J2060; J2765; J2405 ×2; J1170 ×2

== ENCOUNTER 2024-02-27 21:34 | Observation (INO) | payer MEDICARE, OTHER ==
[2024-02-27] MEDS: SODIUM CHLORIDE 0.9% 1,000 ML IV STA (22:17)
[2024-02-27] MEDS: KETOROLAC 15 MG/ML 1 ML VIAL IVP STA (22:18)
[2024-02-27] MEDS: METOCLOPRAMIDE 5 MG/ML 2 ML VIAL IVP STA (22:19)
[2024-02-27] MEDS: PANTOPRAZOLE 40 MG/10 ML VIAL IVP STA (22:20)
[2024-02-27] MEDS: diphenhydrAMINE 50 MG/ML 1 ML VIAL IVP STA (22:22)
[2024-02-27 22:27] LABS: Anisocytosis Slight; Basophils # (A) 0.1 k/uL (0-0.2); Basophils % (A) 0 %; Eosinophils # (A) 0.1 k/uL (0-0.7); Eosinophils % (A) 0 %; HCT 36.5 % (34.0-46.0); HGB 11.5 gm/dL (11.4-16.0); Hypochromasia Slight; Lymphocytes % (A) 12 %; MCH 24.5 pg (25.0-35.0); MCHC 31.5 g/dL (31.0-37.0); MCV 77.7 fL (80.0-100.0); Mean Platelet Volume 7.8; Microcytosis Slight; Monocytes # (A) 0.9 k/uL (0-1.0); Monocytes % (A) 5 %; Neutrophils # (A) 13.1 k/uL (1.3-7.7); Neutrophils % (A) 80 %; Platelet Count 333 k/uL (150-450); RDW 16.9 % (11.5-15.5); WBC 16.4 k/uL (3.8-10.6)
[2024-02-27 22:32] LABS: Partial Thromboplastin Time 22.3 sec (22.0-30.0); Prothrombin Time 10.8 sec (10.0-12.5)
[2024-02-27 23:18] LABS: ALT 40 U/L (4-34); AST 45 U/L (14-36); African American GFR (CKD) >90 (>60 ml/min/1.73 sqM); Albumin 5.1 g/dL (3.5-5.0); Alkaline Phosphatase 152 U/L (38-126); Amylase 58 U/L (30-110); Anion Gap 15 mmol/L; Blood Urea Nitrogen 23 mg/dL (7-17); Calcium 9.9 mg/dL (8.4-10.2); Carbon Dioxide 17 mmol/L (22-30); Chloride 104 mmol/L (98-107); Glucose 111 mg/dL (74-99); Lipase 61 U/L (23-300); Non-African American GFR(CKD) >90 (>60 ml/min/1.73 sqM); Potassium 3.7 mmol/L (3.5-5.1); Sodium 136 mmol/L (137-145); Total Bilirubin 0.8 mg/dL (0.2-1.3); Total Protein 8.4 g/dL (6.3-8.2)
--- NOTE | 2024-02-27 23:51 | ED ---
General Adult HPI - General Chief complaint: Nausea/Vomiting/Diarrhea Stated complaint: NVD Time Seen by Provider: 02/27/24 21:40 Source: patient, EMS, RN notes reviewed, old records reviewed Mode of arrival: EMS Limitations: no limitations - History of Present Illness Initial comments: Patient is a 43-year-old female presents emergency department complaining of multiple days of nausea, vomiting, with residual epigastric abdominal discomfort . Has a history of this. Has a history of IBS, GERD, also remote history of frequent marijuana abuse however states she does not have that currently. Last smoked multiple days ago. Denies diarrhea or constipation. Denies chest pain or shortness of breath. Denies fevers. Presents for further evaluation at this time.Patient states symptoms have been ongoing for 2 days. - Related Data Home Medications Medication Instructions Recorded Confirmed HYDROcodone/APAP 10-325MG [[place] 1 tab PO TID PRN 04/03/17 01/11/24 10-325] Amitriptyline HCl [Elavil] 25 mg PO HS PRN 07/08/23 01/11/24 Dicyclomine [Bentyl] 20 mg PO QID PRN 07/08/23 01/11/24 Promethazine [Phenergan] 12.5 mg PO DAILY PRN 07/08/23 01/11/24 FLUoxetine HCL 20 mg PO DAILY 10/15/23 01/11/24 Naloxone HCl 4 mg NASAL DIRECTED PRN 10/15/23 01/11/24 Pantoprazole Sodium [Protonix] 40 mg PO AC-BID PRN 10/15/23 01/11/24 Sucralfate [Carafate] 1 gm PO TID PRN 01/11/24 01/11/24 Previous Rx's Medication Instructions Recorded Ondansetron Odt [Zofran ODT] 4 mg PO Q8HR PRN #30 tab 10/14/23 Promethazine Suppository 25 mg RECTAL QID PRN #30 supp 10/14/23 [Phenergan] Allergies Allergy/AdvReac Type Severity Reaction Status Date / Time propoxyphene Allergy Rash/Hives Verified 01/11/24 13:35 [From Sissy] Review of Systems ROS Statement: Those systems with pertinent positive or pertinent negative responses have been documented in the HPI. Review of Systems: CONST: Denies fever EYES: Denies blurry vision ENT: Denies nasal congestion C/V: Denies Chest pain RESP: Denies shortness of breath GI: Endorses mild abdominal pain : Denies dysuria SKIN: Denies rash. MSK: Denies joint pain. NEURO: Denies headache ROS Other: All systems not noted in ROS Statement are negative. Past Medical History Past Medical History: Fibromyalgia, Thyroid Disorder Additional Past Medical History / Comment(s): DDD, bulging discs, neuropathy in legs, thyroid nodules, anemia, environmental allergies, constipation/diarrhea, IBS diagnosed in 2019, chronic gastritis, GERD. History of Any Multi-Drug Resistant Organisms: None Reported Past Surgical History: Hysterectomy, Orthopedic Surgery Additional Past Surgical History / Comment(s): Right wrist and forearm surgery, D&C, mass on vocal cords - surgery and biopsy. Past Anesthesia/Blood Transfusion Reactions: Postoperative Nausea & Vomiting (PONV) Additional Past Anesthesia/Blood Transfusion Reaction / Comment(s): Constipation post-op. Past Psychological History: Anxiety Smoking Status: Former smoker, Vaper Past Alcohol Use History: None Reported Past Drug Use History: Marijuana - Past Family History Mother Family Medical History: No Reported History Father Family Medical History: COPD Additional Family Medical History / Comment(s): "Cardiovascular swelling". General Exam - General Exam Comments Initial Comments: General: Appears in mild distress. HEAD: Normal with no signs of head trauma. EYES: PERRLA, EOMI, conjunctiva normal, no discharge. ENT: Hearing grossly intact, normal oropharynx. RESPIRATORY: Clear breath sounds bilaterally. No wheezes, rales, or rhonchi. C/V: Regular rate and rhythm. S1 and S2 auscultated, no edema, peripheral pulses 2+ and intact throughout ABD: Abdomen is soft, nondistended. Very mild tenderness palpation in the epigastric region. No guarding or rebound tenderness. No peritoneal signs. EXT: Normal range of motion, no obvious deformity SKIN: No rashes or lesions observed on exposed skin. NEURO: Alert and oriented x 4. Limitations: no limitations Course Vital Signs 02/27/24 02/28/24 02/28/24 21:35 00:22 04:00 Temperature 98.6 F Pulse Rate 91 75 68 Respiratory 18 18 16 Rate Blood Pressure 155/75 137/82 118/60 O2 Sat by Pulse 100 96 96 Oximetry Medical Decision Making - Medical Decision Making Was pt. sent in by a medical professional or institution (, LANE, REVIEW MANAGER, urgent care, hospital, or fdc...) When possible be specific @ -No Did you speak to anyone other than the patient for history (EMS, parent, family, police, friend...)? What history was obtained from this source @ -No Did you review nursing and triage notes (agree or disagree)? Why? @ -I reviewed and agree with nursing and triage notes Were old charts reviewed (outside hosp., previous admission, EMS record, old EKG, old radiological studies, urgent care reports/EKG's, fdc records)? Report findings @ -Old charts reviewed which does reveal patient has been admitted for intractable nausea and vomiting in the past. Differential Diagnosis (chest pain, altered mental status, abdominal pain women, abdominal pain men, vaginal bleeding, weakness, fever, dyspnea, syncope, headache, dizziness, GI bleed, back pain, seizure, CVA, palpatations, mental health, musculoskeletal)? @ -Differential Abdominal Pain Women: Appendicitis, Cholecystitis, diverticulosis, ischemic bowel, pancreatitis, hepatitis, UTI, gastroenteritis, AAA, incarcerated hernia, bowel obstruction, constipation, inflammatory bowel, hepatitis, peptic ulcer disease, splenic infarction, perforated viscus, vulvitis, ovarian torsion, PID, kidney stone, placenta abruption, this is not meant to be an all-inclusive list EKG interpreted by me (3pts min.). @ -As above X-rays interpreted by me (1pt min.). @ -None done CT interpreted by me (1pt min.). @ -None done U/S interpreted by me (1pt. min.). @ -Gallbladder ultrasound revealed no evidence of cholecystitis. Patient does have fatty liver but no other obvious findings. What testing was considered but not performed or refused? (CT, X-rays, U/S, labs)? Why? @ -None What meds were considered but not given or refused? Why? @ -None Did you discuss the management of the patient with other professionals (professionals i.e. LANE Birch, REVIEW MANAGER, lab, RT, psych nurse, manager social work, political consultant, teacher, motorized squad commanding officer, upper caser)? Give summary @ -Discussed with Dr. Mendosa who accepted the admission. Was smoking cessation discussed for >3mins.? @ -No Was critical care preformed (if so, how long)? @ -No Were there social determinants of health that impacted care today? How? (Homelessness, low income, unemployed, alcoholism, drug addiction, transportation, low edu. Level, literacy, decrease access to med. care, shelter, rehab)? @ -No Was there de-escalation of care discussed even if they declined (Discuss DNR or withdrawal of care, Hospice)? DNR status @ -No What co-morbidities impacted this encounter? (DM, HTN, Smoking, COPD, CAD, Cancer, CVA, ARF, Chemo, Hep., AIDS, mental health diagnosis, sleep apnea, morbid obesity)? @ -Chronic nausea and vomiting Was patient admitted / discharged? Hospital course, mention meds given and r oute, prescriptions, significant lab abnormalities, going to OR and other pertinent info. @ -Based on the patient's presentation and physical exam, presents emergency department complaining of abdominal pain, nausea and vomiting. This is a chronic issue for the patient. We will symptomatically treat the patient at this time. Very minimal abdominal discomfort at this time, with primary complaint of being nausea and emesis. Vital signs within acceptable limits. Patient received IV fluids, IV Reglan Toradol Protonix and Benadryl. Ultrasound of the gallbladder. Patient's laboratory studies remarkable for leukocytosis of 16 which is likely reactive. Minimally elevated LFTs and alk phos. EKG shows no signs of acute ischemia. Ultrasound unremarkable. Patient is required multiple rounds of pain and antiemetic medications here in the department. She will be admitted for dehydration and intractable nausea and vomiting. She was in agreement this plan. I spoke with admitting physician, Dr. Mendosa who accepted the admission. Undiagnosed new problem with uncertain prognosis? @ -No Drug Therapy requiring intensive monitoring for toxicity (Heparin, Nitro, Insulin, Cardizem)? @ -No Were any procedures done? @ -No Diagnosis/symptom? @ -Dehydration, intractable nausea and vomiting Acute, or Chronic, or Acute on Chronic? @ -Acute Uncomplicated (without systemic symptoms) or Complicated (systemic symptoms)? @ -Complicated Side effects of treatment? @ -None Exacerbation, Progression, or Severe Exacerbation] @ -No Poses a threat to life or bodily function? @ -Yes - Lab Data Result diagrams: 02/27/24 22:00 02/27/24 22:00 Lab Results 02/27/24 02/27/24 02/27/24 Range/Units 22:00 22:00 22:00 WBC 16.4 H (3.8-10.6) k/uL RBC 4.70 (3.80-5.40) m/uL Hgb 11.5 (11.4-16.0) gm/dL Hct 36.5 (34.0-46.0) % MCV 77.7 L (80.0-100.0) fL MCH 24.5 L (25.0-35.0) pg MCHC 31.5 (31.0-37.0) g/dL RDW 16.9 H (11.5-15.5) % Plt Count 333 (150-450) k/uL MPV 7.8 Neutrophils % 80 % Lymphocytes % 12 % Monocytes % 5 % Eosinophils % 0 % Basophils % 0 % Neutrophils # 13.1 H (1.3-7.7) k/uL Lymphocytes # 2.0 (1.0-4.8) k/uL Monocytes # 0.9 (0-1.0) k/uL Eosinophils # 0.1 (0-0.7) k/uL Basophils # 0.1 (0-0.2) k/uL Hypochromasia Slight Anisocytosis Slight Microcytosis Slight PT (10.0-12.5) sec INR (<1.2) APTT (22.0-30.0) sec Sodium 136 L (137-145) mmol/L Potassium 3.7 (3.5-5.1) mmol/L Chloride 104 (98-107) mmol/L Carbon Dioxide 17 L (22-30) mmol/L Anion Gap 15 mmol/L BUN 23 H (7-17) mg/dL Creatinine 0.78 (0.52-1.04) mg/dL Est GFR (CKD-EPI)AfAm >90 (>60 ml/min/1.73 sqM) Est GFR (CKD-EPI)NonAf >90 (>60 ml/min/1.73 sqM) Glucose 111 H (74-99) mg/dL Plasma Lactic Acid Zaid 1.4 (0.7-2.0) mmol/L Calcium 9.9 (8.4-10.2) mg/dL Magnesium 2.0 (1.6-2.3) mg/dL Total Bilirubin 0.8 (0.2-1.3) mg/dL AST 45 H (14-36) U/L ALT 40 H (4-34) U/L Alkaline Phosphatase 152 H (38-126) U/L Total Protein 8.4 H (6.3-8.2) g/dL Albumin 5.1 H (3.5-5.0) g/dL Amylase 58 (30-110) U/L Lipase 61 (23-300) U/L Urine Color Urine Appearance (Clear) Urine pH (5.0-8.0) Ur Specific [place] (1.001-1.035) Urine Protein (Negative) Urine Glucose (UA) (Negative) Urine Ketones (Negative) Urine Blood (Negative) Urine Nitrite (Negative) Urine Bilirubin (Negative) Urine Urobilinogen (<2.0) mg/dL Ur Leukocyte Esterase (Negative) Urine RBC (0-5) /hpf Urine WBC (0-5) /hpf Ur Squamous Epith Cells (0-4) /hpf Urine Bacteria (None) /hpf Hyaline Casts (0-2) /lpf Urine Mucus (None) /hpf 02/27/24 02/27/24 Range/Units 22:00 23:30 WBC (3.8-10.6) k/uL RBC (3.80-5.40) m/uL Hgb (11.4-16.0) gm/dL Hct (34.0-46.0) % MCV (80.0-100.0) fL MCH (25.0-35.0) pg MCHC (31.0-37.0) g/dL RDW (11.5-15.5) % Plt Count (150-450) k/uL MPV Neutrophils % % Lymphocytes % % Monocytes % % Eosinophils % % Basophils % % Neutrophils # (1.3-7.7) k/uL Lymphocytes # (1.0-4.8) k/uL Monocytes # (0-1.0) k/uL Eosinophils # (0-0.7) k/uL Basophils # (0-0.2) k/uL Hypochromasia Anisocytosis Microcytosis PT 10.8 (10.0-12.5) sec INR 1.0 (<1.2) APTT 22.3 (22.0-30.0) sec Sodium (137-145) mmol/L Potassium (3.5-5.1) mmol/L Chloride (98-107) mmol/L Carbon Dioxide (22-30) mmol/L Anion Gap mmol/L BUN (7-17) mg/dL Creatinine (0.52-1.04) mg/dL Est GFR (CKD-EPI)AfAm (>60 ml/min/1.73 sqM) Est GFR (CKD-EPI)NonAf (>60 ml/min/1.73 sqM) Glucose (74-99) mg/dL Plasma Lactic Acid Zaid (0.7-2.0) mmol/L Calcium (8.4-10.2) mg/dL Magnesium (1.6-2.3) mg/dL Total Bilirubin (0.2-1.3) mg/dL AST (14-36) U/L ALT (4-34) U/L Alkaline Phosphatase (38-126) U/L Total Protein (6.3-8.2) g/dL Albumin (3.5-5.0) g/dL Amylase (30-110) U/L Lipase (23-300) U/L Urine Color Light Yellow Urine Appearance Clear (Clear) Urine pH 7.0 (5.0-8.0) Ur Specific [place] 1.019 (1.001-1.035) Urine Protein 1+ H (Negative) Urine Glucose (UA) Negative (Negative) Urine Ketones 3+ H (Negative) Urine Blood Trace H (Negative) Urine Nitrite Negative (Negative) Urine Bilirubin Negative (Negative) Urine Urobilinogen <2.0 (<2.0) mg/dL Ur Leukocyte Esterase Negative (Negative) Urine RBC 1 (0-5) /hpf Urine WBC 4 (0-5) /hpf Ur Squamous Epith Cells 1 (0-4) /hpf Urine Bacteria Rare H (None) /hpf Hyaline Casts 8 H (0-2) /lpf Urine Mucus Few H (None) /hpf - EKG Data -: EKG Interpreted by Me EKG Comments: 12-lead Electrocardiogram Interpretation Note EKG was reviewed and interpreted by myself. 12-lead ECG performed at 2212 is interpreted by me as revealing normal sinus rhythm at a rate of 83 beats per minute. [place] is normal. NE interval is 117 ms, QRS duration is 81 ms, QTc is 430 ms. There were no ST or T wave abnormalities to suggest myocardial ischemia or injury. R wave progression across the precordium was satisfactory. By my interpretation this EKG is non-diagnostic for acute ischemia. Disposition Clinical Impression: Intractable nausea and vomiting, Dehydration Disposition: ADMITTED IP TO THIS HOSP Condition: Stable Time of Disposition: 02:35
[2024-02-28 00:27] LABS: Appearance,Urine Clear (Clear); Bacteria,Urine Rare /hpf; Bilirubin,Urine Negative (Negative); Blood,Urine Trace (Negative); Color,Urine Light Yellow; Glucose,Urine (UA) Negative (Negative); Hyaline Casts,Urine 8 /lpf (0-2); Ketones,Urine 3+ (Negative); Leukocyte Esterase,Urine Negative (Negative); Mucus,Urine Few /hpf; Nitrite,Urine Negative (Negative); Protein,Urine 1+ (Negative); RBC,Urine 1 /hpf (0-5); Specific Gravity,Urine 1.019 (1.001-1.035); Squamous Epithelial Cell,Urine 1 /hpf (0-4); Urobilinogen,Urine <2.0 mg/dL (<2.0); WBC,Urine 4 /hpf (0-5)
[2024-02-28] MEDS: HALOPERIDOL LACTATE 5 MG/ML 1 ML VIAL IVP STA (01:24)
--- NOTE | 2024-02-28 02:27 | US ---
EXAM: US Abdomen Limited, Right Upper Quadrant CLINICAL HISTORY: ITS.REASON US Reason: n/v TECHNIQUE: Real-time ultrasound of the right upper quadrant with image documentation. COMPARISON: CT abdomen 10/15/2023. FINDINGS: Liver: 14.5 cm length. Echogenic and heterogeneous. No mass. No intrahepatic bile duct dilation. Gallbladder: No gallstones. No gallbladder wall thickening. No pericholecystic fluid. No sonographic Coffman's sign. Common bile duct: 3 mm. No stones. No dilation. Pancreas: Obscured by bowel gas. Right kidney: Unremarkable. No stones. No solid mass. No hydronephrosis. IMPRESSION: Pancreas obscured by bowel gas. Fatty liver. Otherwise negative.
[2024-02-28] MEDS ORDERED: KETOROLAC 15 MG/ML 1 ML VIAL IVP PRN (02:38)
[2024-02-28] MEDS ORDERED: NALOXONE 0.4 MG/ML 1 ML VIAL IV PRN (02:38)
[2024-02-28] MEDS ORDERED: MORPHINE SULFATE 4 MG/ML SYRINGE IV PRN (02:38)
[2024-02-28] MEDS: SODIUM CHLORIDE 0.9% 1,000 ML IV STA (02:56)
[2024-02-28] MEDS: diphenhydrAMINE 50 MG/ML 1 ML VIAL IVP STA (03:25)
[2024-02-28] MEDS: PROCHLORPERAZINE INJ 10 MG/2 ML VIAL IVP STA (03:26)
[2024-02-28] MEDS: PANTOPRAZOLE 40 MG/10 ML VIAL IV SCH (08:23)
[2024-02-28] MEDS: ONDANSETRON 4 MG/2 ML VIAL IVP PRN (08:24)
[2024-02-28 11:27] VITALS: RESP 18
[2024-02-28] MEDS ORDERED: AMITRIPTYLINE HCL 25 MG TAB PO PRN (11:53)
[2024-02-28] MEDS ORDERED: DICYCLOMINE 20 MG TAB PO PRN (11:53)
[2024-02-28] MEDS ORDERED: HYDROcodone/APAP 10-325MG 1 EACH TAB PO PRN (11:53)
[2024-02-28] MEDS: FLUoxetine HCL 20 MG CAP PO SCH (12:16)
[2024-02-28] MEDS: ENOXAPARIN 40 MG/0.4 ML SYRINGE SQ SCH (12:17)
[2024-02-28 12:55] VITALS: BP 120/97; PULSE 85; TEMP 98.2
--- NOTE | 2024-02-28 22:19 | P.HPIM ---
History of Present Illness H&P Date: 02/28/24 Chief Complaint: Multiple vomiting This is a very pleasant 43-year-old patient, follows with Dr. Cynthia Fox. Chronic stable medical conditions include fibromyalgia, hypothyroid, herniated disc of the lower back. Peripheral neuropathy. Thyroid nodules Environmental allergies. IBS was diagnosed in 2019. Patient is followed up with Dr. Hermelinda Allison from GI. Has had endoscopy that showed hiatal hernia.nonalcoholic fatty liver disease Patient gets episodes described as: often times she will have nausea which is rather chronic and she gets the shaking feeling inside for which she takes amitriptyline. . Patient has these episodes of increased nausea vomiting it comes and goes. Normally these episodes she will also have 1 loose stool. And gets abdominal discomfort from nausea and vomiting. Sunday morning patient had 1 loose bowel movement. Patient is having multiple vomiting episodes. Along with abdominal discomfort. No fever no chills. And presented very to the ER. Patient received 1 dose of Reglan, Protonix, IV fluids Benadryl. Overnight patient felt better. This morning feeling better. Has not really eaten. Wanting to eat. Review of systems: GEN.: Tired EYES: None HEENT: None NECK: None RESPIRATORY: None CARDIOVASCULAR: None GASTROINTESTINAL: As above GENITOURINARY: None MUSCULOSKELETAL: Chronic low back pain LYMPHATICS: None HEMATOLOGICAL: None PSYCHIATRY: Anxiety NEUROLOGICAL: As above Social history: Patient smoked a pack a day for 26 years. Stopped 2018. Patient does vaping and smokes marijuana. Lives with her fianc. Patient has medical marijuana both for pain and nausea. Physical examination: VITAL SIGNS: 98.6, 68, 16, 118/60, 96% room air GENERAL: BMI 29.1, reclining in bed, EYES: Pupils equal. Conjunctiva robert l. HEENT: External appearance of nose and ears normal, oral cavity grossly normal. NECK: JVD not raised; masses not palpable. HEART: First and second heart sounds are normal; no edema. LUNGS: Respiratory rate normal; decreased breath sound. ABDOMEN: Soft, nontender, liver spleen not palpable, no masses palpable. PSYCH: [Alert and oriented x3; mood and affect slightly anxious MUSCULOSKELETAL:No Clubbing/cyanosis;muscles-grossly intact NEUROLOGICAL: Cranial nerves grossly intact; no facial asymmetry, power and sensation grossly intact. LYMPHATICS: No lymph nodes palpable in the axilla and neck INVESTIGATIONS, reviewed in the clinical context: February 26: White count 16.4 hemoglobin 11.5 platelets 333 sodium 136 potassium 3.7 BUN 23 creatinine 0.78 AST 45 ALT 40 amylase 58 lipase 61 UA: Protein 1+ ketones 3+ Ultrasound abdomen: Fatty liver. EKG tracing personally reviewed by me-normal sinus rhythm Assessment plan: -Acute flareup of irritable bowel syndrome. Patient has a cyclical presentation every so often. Given IV fluids Reglan etc. overnight. Feeling better. Will give patient a light diet to see how she does. -GERD PPI -Anxiety and depression otherwise specified Elavil. Prozac. -Nonalcoholic fatty liver disease follow with Dr. Hermelinda Allison -Herniated disc disease lumbar spine. [place] as needed -Full code Discussed with patient. Will try a light lunch. Past Medical History Past Medical History: Fibromyalgia, Thyroid Disorder Additional Past Medical History / Comment(s): DDD, bulging discs, neuropathy in legs, thyroid nodules, anemia, environmental allergies, constipation/diarrhea, IBS diagnosed in 2019, chronic gastritis, GERD. History of Any Multi-Drug Resistant Organisms: None Reported Past Surgical History: Hysterectomy, Orthopedic Surgery Additional Past Surgical History / Comment(s): Right wrist and forearm surgery, D&C, mass on vocal cords - surgery and biopsy. Past Anesthesia/Blood Transfusion Reactions: Postoperative Nausea & Vomiting (PONV) Additional Past Anesthesia/Blood Transfusion Reaction / Comment(s): Constipation post-op. Past Psychological History: Anxiety Smoking Status: Former smoker, Vaper Past Alcohol Use History: None Reported Past Drug Use History: Marijuana - Past Family History Mother Family Medical History: No Reported History Father Family Medical History: COPD Additional Family Medical History / Comment(s): "Cardiovascular swelling". Medications and Allergies Home Medications Medication Instructions Recorded Confirmed Type HYDROcodone/APAP 10-325MG [[place] 1 tab PO TID PRN 04/03/17 02/28/24 History 10-325] Amitriptyline HCl [Elavil] 25 mg PO HS PRN 07/08/23 02/28/24 History Dicyclomine [Bentyl] 20 mg PO QID PRN 07/08/23 02/28/24 History Promethazine [Phenergan] 12.5 mg PO DAILY PRN 07/08/23 02/28/24 History Ondansetron Odt [Zofran ODT] 4 mg PO Q8HR PRN #30 tab 10/14/23 02/28/24 Rx Promethazine Suppository 25 mg RECTAL QID PRN #30 supp 10/14/23 02/28/24 Rx [Phenergan] FLUoxetine HCL 20 mg PO DAILY 10/15/23 02/28/24 History Naloxone HCl 4 mg NASAL DIRECTED PRN 10/15/23 02/28/24 History Pantoprazole Sodium [Protonix] 40 mg PO AC-BID PRN 10/15/23 02/28/24 History Sucralfate [Carafate] 1 gm PO TID PRN 01/11/24 02/28/24 History Allergies Allergy/AdvReac Type Severity Reaction Status Date / Time propoxyphene Allergy Rash/Hives Verified 02/28/24 10:06 [From Sissy] Physical Exam Vitals: Vital Signs Temp Pulse Resp BP Pulse Ox 02/28/24 11:26 98.3 F 80 18 120/84 99 02/28/24 04:00 68 16 118/60 96 02/28/24 00:22 75 18 137/82 96 02/27/24 21:35 98.6 F 91 18 155/75 100 Intake and Output 02/27/24 02/28/24 02/28/24 22:59 06:59 14:59 Other: Weight 81.647 kg Results CBC & Chem 7: 02/27/24 22:00 02/27/24 22:00 Labs: Abnormal Lab Results - Last 24 Hours (Table) 02/27/24 02/27/24 02/27/24 Range/Units 22:00 22:00 23:30 WBC 16.4 H (3.8-10.6) k/uL MCV 77.7 L (80.0-100.0) fL MCH 24.5 L (25.0-35.0) pg RDW 16.9 H (11.5-15.5) % Neutrophils # 13.1 H (1.3-7.7) k/uL Sodium 136 L (137-145) mmol/L Carbon Dioxide 17 L (22-30) mmol/L BUN 23 H (7-17) mg/dL Glucose 111 H (74-99) mg/dL AST 45 H (14-36) U/L ALT 40 H (4-34) U/L Alkaline Phosphatase 152 H (38-126) U/L Total Protein 8.4 H (6.3-8.2) g/dL Albumin 5.1 H (3.5-5.0) g/dL Urine Protein 1+ H (Negative) Urine Ketones 3+ H (Negative) Urine Blood Trace H (Negative) Urine Bacteria Rare H (None) /hpf Hyaline Casts 8 H (0-2) /lpf Urine Mucus Few H (None) /hpf
--- NOTE | 2024-02-28 22:20 | P.DS ---
Providers Date of admission: 02/28/24 02:38 Expected date of discharge: 02/28/24 Attending physician: Lowell Mendosa Primary care physician: Cynthia Fox [facility] Course: Chief Complaint: Multiple vomiting This is a very pleasant 43-year-old patient, follows with Dr. Cynthia Fox. Chronic stable medical conditions include fibromyalgia, hypothyroid, herniated disc of the lower back. Peripheral neuropathy. Thyroid nodules Environmental allergies. IBS was diagnosed in 2019. Patient is followed up with Dr. Hermelinda Allison from GI. Has had endoscopy that showed hiatal hernia.nonalcoholic fatty liver disease Patient gets episodes described as: often times she will have nausea which is rather chronic and she gets the shaking feeling inside for which she takes amitriptyline. . Patient has these episodes of increased nausea vomiting it comes and goes. Normally these episodes she will also have 1 loose stool. And gets abdominal discomfort from nausea and vomiting. Sunday morning patient had 1 loose bowel movement. Patient is having multiple vomiting episodes. Along with abdominal discomfort. No fever no chills. And presented very to the ER. Patient received 1 dose of Reglan, Protonix, IV fluids Benadryl. Overnight patient felt better. This morning feeling better. Has not really eaten. Wanting to eat. Patient tolerated a light lunch. Keen to go home. Feeling well. Will follow- up with Dr. Allison Social history: Patient smoked a pack a day for 26 years. Stopped 2018. Patient does vaping and smokes marijuana. Lives with her fianc. Patient has medical marijuana bot h for pain and nausea. Physical examination: VITAL SIGNS: 98.2, 85, 18, 120 x 97, GENERAL: BMI 29.1, reclining in bed, EYES: Pupils equal. Conjunctiva robert l. HEENT: External appearance of nose and ears normal, oral cavity grossly normal. NECK: JVD not raised; masses not palpable. HEART: First and second heart sounds are normal; no edema. LUNGS: Respiratory rate normal; decreased breath sound. ABDOMEN: Soft, nontender, liver spleen not palpable, no masses palpable. PSYCH: [Alert and oriented x3; mood and affect slightly anxious MUSCULOSKELETAL:No Clubbing/cyanosis;muscles-grossly intact NEUROLOGICAL: Cranial nerves grossly intact; no facial asymmetry, power and sensation grossly intact. LYMPHATICS: No lymph nodes palpable in the axilla and neck INVESTIGATIONS, reviewed in the clinical context: February 26: White count 16.4 hemoglobin 11.5 platelets 333 sodium 136 potassium 3.7 BUN 23 creatinine 0.78 AST 45 ALT 40 amylase 58 lipase 61 UA: Protein 1+ ketones 3+ Ultrasound abdomen: Fatty liver. EKG tracing personally reviewed by me-normal sinus rhythm Assessment plan: -Acute flareup of irritable bowel syndrome. Patient has a cyclical presentation every so often. Given IV fluids Reglan etc. overnight. Feeling better. Tolerated light lunch. -GERD PPI -Anxiety and depression otherwise specified Elavil. Prozac. -Nonalcoholic fatty liver disease follow with Dr. Hermelinda Allison -Herniated disc disease lumbar spine. [place] as needed -Full code Disposition: Home Past Medical History Past Medical History: Fibromyalgia, Thyroid Disorder Additional Past Medical History / Comment(s): DDD, bulging discs, neuropathy in legs, thyroid nodules, anemia, environmental allergies, constipation/diarrhea, IBS diagnosed in 2019, chronic gastritis, GERD. History of Any Multi-Drug Resistant Organisms: None Reported Past Surgical History: Hysterectomy, Orthopedic Surgery Additional Past Surgical History / Comment(s): Right wrist and forearm surgery, D&C, mass on vocal cords - surgery and biopsy. Past Anesthesia/Blood Transfusion Reactions: Postoperative Nausea & Vomiting (PONV) Additional Past Anesthesia/Blood Transfusion Reaction / Comment(s): Constipation post-op. Past Psychological History: Anxiety Smoking Status: Former smoker, Vaper Past Alcohol Use History: None Reported Past Drug Use History: Marijuana Plan - Discharge Summary New Discharge Prescriptions: Continue HYDROcodone/APAP 10-325MG [[place] 10-325] 1 tab PO TID PRN PRN Reason: Pain Dicyclomine [Bentyl] 20 mg PO QID PRN PRN Reason: IBS Promethazine Suppository [Phenergan] 25 mg RECTAL QID PRN #30 supp PRN Reason: Nausea And Vomiting Ondansetron Odt [Zofran ODT] 4 mg PO Q8HR PRN #30 tab PRN Reason: Nausea And Vomiting FLUoxetine HCL 20 mg PO DAILY Promethazine [Phenergan] 12.5 mg PO DAILY PRN PRN Reason: Nausea Amitriptyline HCl [Elavil] 25 mg PO HS PRN PRN Reason: Insomnia Naloxone HCl 4 mg NASAL DIRECTED PRN PRN Reason: accidental overdose Pantoprazole Sodium [Protonix] 40 mg PO AC-BID PRN PRN Reason: Heartburn/Gerd Sucralfate [Carafate] 1 gm PO TID PRN PRN Reason: Gi Upset Discharge Medication List HYDROcodone/APAP 10-325MG [[place] 10-325] 1 tab PO TID PRN 04/03/17 [History] Amitriptyline HCl [Elavil] 25 mg PO HS PRN 07/08/23 [History] Dicyclomine [Bentyl] 20 mg PO QID PRN 07/08/23 [History] Promethazine [Phenergan] 12.5 mg PO DAILY PRN 07/08/23 [History] Ondansetron Odt [Zofran ODT] 4 mg PO Q8HR PRN #30 tab 10/14/23 [Rx] Promethazine Suppository [Phenergan] 25 mg RECTAL QID PRN #30 supp 10/14/23 [Rx] FLUoxetine HCL 20 mg PO DAILY 10/15/23 [History] Naloxone HCl 4 mg NASAL DIRECTED PRN 10/15/23 [History] Pantoprazole Sodium [Protonix] 40 mg PO AC-BID PRN 10/15/23 [History] Sucralfate [Carafate] 1 gm PO TID PRN 01/11/24 [History] Follow up Appointment(s)/Referral(s): Devika Allison MD [STAFF PHYSICIAN] - 2 Weeks Cynthia Fox MD [Primary Care Provider] - 1-2 days Discharge Disposition: HOME SELF-CARE
== END 2024-02-28 12:57 | disposition home or self-care (01) ==
LOC: EC 21:34 → 6NMEDSUR 02-28 02:38
PROVIDERS: ADMIT Hospitalist; ATTEND Hospitalist
DX: K58.9 Irritable bowel syndrome, unspecified (principal); K21.9 Gastro-esophageal reflux disease without esophagitis; E86.0 Dehydration; F41.9 Anxiety disorder, unspecified; E03.9 Hypothyroidism, unspecified; F32.A Depression, unspecified; K76.0 Fatty (change of) liver, not elsewhere classified; M51.26 Other intervertebral disc displacement, lumbar region; G62.9 Polyneuropathy, unspecified; F17.290 Nicotine dependence, other tobacco product, uncomplicated; Z79.899 Other long term (current) drug therapy
CPT/HCPCS: 96376; 96361; 96374; 96375 ×2; 99285; 36415; 93005; 80053; 82150; 83605; 83690; 83735; 85025; 85610; 85730; 81001; 76705; G0378; J1200 ×2; J0780; J1630; J2765; J2405; J1885; J2470 ×2

== ENCOUNTER 2024-03-29 21:07 | Observation (INO) | payer MEDICARE, OTHER ==
--- NOTE | 2024-03-29 21:17 | ED ---
Nausea/Vomiting/Diarrhea HPI - General Source: patient, RN notes reviewed Mode of arrival: EMS Limitations: no limitations <Jodie Ruffin - Last Filed: 03/29/24 21:17> - General Source: patient, RN notes reviewed, old records reviewed <Juan Carlos Blood - Last Filed: 03/30/24 01:18> - General Chief complaint: Nausea/Vomiting/Diarrhea Stated complaint: Abdominal Pain Time Seen by Provider: 03/29/24 21:17 - History of Present Illness Initial comments: Quick note: 43-year-old female presented to ER with a chief complaint of nausea and vomiting. Patient reports past medical history significant of IBS and chronic gastritis. She states for the past 2 days she believes she is having a flareup. She has had constant nausea and vomiting which is now bile. She states diarrhea on day 1 but has since had normal bowel movements. Denies any fevers or chills. She has been taking Zofran, Protonix and Bentyl without relief. (Jodie Ruffin) Patient is a 43-year-old female with past medical history remarkable for IBS, chronic gastritis, marijuana abuse who presents emergency department complaining of generalized abdominal pain, nausea, vomiting for the last 2 days. Emesis is nonbilious nonbloody. Diarrhea is nonbloody and patient began having solid bowel movements today. Is frequently in our emergency department almost on a monthly basis for similar complaints. Last CT imaging obtained in September of this year which revealed no obvious acute process. Patient states this is very typical for her normal flares. Denies any new symptoms. Presents for further evaluation at this time. Denies any vaginal discharge or bleeding. Denies any urinary complaints. Denies chest pain or shortness of breath. ( Juan Carlos Blood) - Related Data Home Medications Medication Instructions Recorded Confirmed HYDROcodone/APAP 10-325MG [Con[place] 1 tab PO TID PRN 04/03/17 02/28/24 10-325] Amitriptyline HCl [Elavil] 25 mg PO HS PRN 07/08/23 02/28/24 Dicyclomine [Bentyl] 20 mg PO QID PRN 07/08/23 02/28/24 Promethazine [Phenergan] 12.5 mg PO DAILY PRN 07/08/23 02/28/24 FLUoxetine HCL 20 mg PO DAILY 10/15/23 02/28/24 Naloxone HCl 4 mg NASAL DIRECTED PRN 10/15/23 02/28/24 Pantoprazole Sodium [Protonix] 40 mg PO AC-BID PRN 10/15/23 02/28/24 Sucralfate [Carafate] 1 gm PO TID PRN 01/11/24 02/28/24 Previous Rx's Medication Instructions Recorded Ondansetron Odt [Zofran ODT] 4 mg PO Q8HR PRN #30 tab 10/14/23 Promethazine Suppository 25 mg RECTAL QID PRN #30 supp 10/14/23 [Phenergan] Allergies Allergy/AdvReac Type Severity Reaction Status Date / Time propoxyphene Allergy Rash/Hives Verified 03/29/24 21:12 [From Sissy] Review of Systems ROS Other: All systems not noted in ROS Statement are negative. <Jodie Ruffin - Last Filed: 03/29/24 21:17> ROS Other: All systems not noted in ROS Statement are negative. <Juan Carlos Blood - Last Filed: 03/30/24 01:18> ROS Statement: Those systems with pertinent positive or pertinent negative responses have been documented in the HPI. Review of Systems: CONST: Denies fever EYES: Denies blurry vision ENT: Denies nasal congestion C/V: Denies Chest pain RESP: Denies shortness of breath GI: Endorses abdominal pain : Denies dysuria SKIN: Denies rash. MSK: Denies joint pain. NEURO: Denies headache (Juan Carlos Blood) Past Medical History Past Medical History: Fibromyalgia, Thyroid Disorder Additional Past Medical History / Comment(s): DDD, bulging discs, neuropathy in legs, thyroid nodules, anemia, environmental allergies, constipation/diarrhea, IBS diagnosed in 2019, chronic gastritis, GERD. History of Any Multi-Drug Resistant Organisms: None Reported Past Surgical History: Hysterectomy, Orthopedic Surgery Additional Past Surgical History / Comment(s): Right wrist and forearm surgery, D&C, mass on vocal cords - surgery and biopsy. Past Anesthesia/Blood Transfusion Reactions: Postoperative Nausea & Vomiting (PONV) Additional Past Anesthesia/Blood Transfusion Reaction / Comment(s): Constipation post-op. Past Psychological History: Anxiety Smoking Status: Former smoker, Vaper Past Alcohol Use History: None Reported Past Drug Use History: Marijuana - Past Family History Mother Family Medical History: No Reported History Father Family Medical History: COPD Additional Family Medical History / Comment(s): "Cardiovascular swelling". <Jodie Ruffin - Last Filed: 03/29/24 21:17> General Exam <Jodie Ruffin - Last Filed: 03/29/24 21:17> <Juan Carlos Blood - Last Filed: 03/30/24 01:18> - General Exam Comments Initial Comments: Visual Physical Exam Vital signs reviewed General: Well-appearing, nontoxic, no acute distress. Head: Normocephalic, atraumatic Eyes: PERRLA, EOMI ENT: Airway patent Chest: Nonlabored breathing Skin: No visual rash, normal skin tone Neuro: Alert and oriented 3 Musculoskeletal: No gross abnormalities (Jodie Ruffin) General: Appears in no acute distress. HEAD: Normal with no signs of head trauma. EYES: EOMI ENT: Hearing grossly intact, normal oropharynx. RESPIRATORY: Clear breath sounds bilaterally. No wheezes, rales, or rhonchi. C/V: Regular rate and rhythm. S1 and S2 auscultated, no edema, peripheral pulses 2+ and intact throughout ABD: Abdomen is soft, nondistended. Tender to palpation somewhat diffusely with no focal tenderness. No guarding. No rebound tenderness. No peritoneal signs. EXT: Normal range of motion, no obvious deformity SKIN: No rashes or lesions observed on exposed skin. NEURO: Alert and oriented x 4. (Juan Carlos Blood) Course Vital Signs 03/29/24 03/29/24 03/29/24 21:10 21:41 23:55 Temperature 97.7 F 98.7 F Pulse Rate 111 H 92 88 Respiratory 20 18 18 Rate Blood Pressure 113/73 116/98 114/81 O2 Sat by Pulse 100 100 91 L Oximetry Medical Decision Making <Jodie Ruffin - Last Filed: 03/29/24 21:17> - Lab Data Result diagrams: 03/29/24 21:49 03/29/24 21:49 - EKG Data -: EKG Interpreted by Me <Juan Carlos Blood - Last Filed: 03/30/24 01:18> - Medical Decision Making I performed the quick note portion of this chart. Electronically signed by Jodie Ruffin PA-C (Jodie Ruffin) Was pt. sent in by a medical professional or institution ([facility], FITTING ROOM SUPERVISOR, urgent care, hospital, or detention...) When possible be specific @ -No Did you speak to anyone other than the patient for history (EMS, parent, family, police, friend...)? What history was obtained from this source @ -No Did you review nursing and triage notes (agree or disagree)? Why? @ -I reviewed and agree with nursing and triage notes Were old charts reviewed (outside hosp., previous admission, EMS record, old EKG, old radiological studies, urgent care reports/EKG's, detention records)? Report findings @ -Charts reviewed including CT imaging from September 2023 which showed no obvious acute intra-abdominal process. Differential Diagnosis (chest pain, altered mental status, abdominal pain women, abdominal pain men, vaginal bleeding, weakness, fever, dyspnea, syncope, heada leon, dizziness, GI bleed, back pain, seizure, CVA, palpatations, mental health, musculoskeletal)? @ -Differential Abdominal Pain Women: Appendicitis, Cholecystitis, diverticulosis, ischemic bowel, pancreatitis, hepatitis, UTI, gastroenteritis, AAA, incarcerated hernia, bowel obstruction, constipation, inflammatory bowel, hepatitis, peptic ulcer disease, splenic infarction, perforated viscus, vulvitis, ovarian torsion, PID, kidney stone, placenta abruption, this is not meant to be an all-inclusive list EKG interpreted by me (3pts min.). @ -As above X-rays interpreted by me (1pt min.). @ -None done CT interpreted by me (1pt min.). @ -CT imaging returned negative for any obvious acute intra-abdominal process. U/S interpreted by me (1pt. min.). @ -None done What testing was considered but not performed or refused? (CT, X-rays, U/S, labs)? Why? @ -Considered CT imaging initially however we both agreed to defer at this time as she has recurrent episodes of this pain and has multiple CT imagings per year. Will obtain laboratory studies and symptomatically treat initially. She was in agreement this plan. It was eventually ordered as patient was still symptomatic and required multiple rounds of pain and antiemetic medications. What meds were considered but not given or refused? Why? @ -None Did you discuss the management of the patient with other professionals (professionals i.e. DrIbeht, PA, FITTING ROOM SUPERVISOR, lab, RT, psych nurse, 7th grade social studies teacher, jewelry jobber, teacher, sustainability officer, correctional case manager)? Give summary @ - I spoke with the admitting team, [facility] Dr. Walker to the admission she is covering for Dr. Mendosa who would normally admit for Dr. Fox. Was smoking cessation discussed for >3mins.? @ -No Was critical care preformed (if so, how long)? @ -No Were there social determinants of health that impacted care today? How? (Homelessness, low income, unemployed, alcoholism, drug addiction, transportation, low edu. Level, literacy, decrease access to med. care, snf, rehab)? @ -No Was there de-escalation of care discussed even if they declined (Discuss DNR or withdrawal of care, Hospice)? DNR status @ -No What co-morbidities impacted this encounter? (DM, HTN, Smoking, COPD, CAD, Can cer, CVA, ARF, Chemo, Hep., AIDS, mental health diagnosis, sleep apnea, morbid obesity)? @ -IBS, chronic gastritis Was patient admitted / discharged? Hospital course, mention meds given and route, prescriptions, significant lab abnormalities, going to OR and other pertinent info. @ -Patient presents emergency department with chronic flareup of IBS and gastritis. States her symptoms are very typical for this. We will obtain abdominal labs and symptomatically treat the patient with IV fluids, Dilaudid, Zofran, Protonix. Patient was in agreement this plan. Vital signs are within acceptable limits. EKG shows no signs of acute ischemia.Laboratory studies remarkable for leukocytosis of 16 which is likely reactive. Remainder the labs show chronically elevated LFTs and alk phos which are within the normal baseline. Negative test. On reevaluation, patient is still having nausea and vomiting abdominal pain. Given another round of medications. At this time we did agree to have CT imaging obtained and patient will likely be admitted. She was in agreement this plan. CT imaging negative for any obvious acute process. I updated the patient. She will be admitted at this time to observation. Will continue to hydrate with IV fluids and provide analgesia and antiemetic support. I spoke with the admitting team, [facility] Dr. Walker to the admission she is covering for Dr. Mendosa who would normally admit for Dr. Fox. Undiagnosed new problem with uncertain prognosis? @ -No Drug Therapy requiring intensive monitoring for toxicity (Heparin, Nitro, Insulin, Cardizem)? @ -No Were any procedures done? @ -No Diagnosis/symptom? @ -Intractable abdominal pain, nausea, vomiting Acute, or Chronic, or Acute on Chronic? @ -Acute Uncomplicated (without systemic symptoms) or Complicated (systemic symptoms)? @ -Complicated Side effects of treatment? @ -None Exacerbation, Progression, or Severe Exacerbation] @ -No Poses a threat to life or bodily function? @ -Potentially, yes. (Juan Carlos Blood) - Lab Data Lab Results 03/29/24 03/29/24 03/29/24 Range/Units 21:49 21:49 21:49 WBC 16.3 H (3.8-10.6) k/uL RBC 4.80 (3.80-5.40) m/uL Hgb 11.6 (11.4-16.0) gm/dL Hct 35.4 (34.0-46.0) % MCV 73.8 L (80.0-100.0) fL MCH 24.3 L (25.0-35.0) pg MCHC 32.9 (31.0-37.0) g/dL RDW 17.0 H (11.5-15.5) % Plt Count 400 (150-450) k/uL MPV 7.2 Neutrophils % 80 % Lymphocytes % 12 % Monocytes % 4 % Eosinophils % 2 % Basophils % 0 % Neutrophils # 13.0 H (1.3-7.7) k/uL Lymphocytes # 2.0 (1.0-4.8) k/uL Monocytes # 0.7 (0-1.0) k/uL Eosinophils # 0.4 (0-0.7) k/uL Basophils # 0.1 (0-0.2) k/uL Hypochromasia Slight Anisocytosis Slight Microcytosis Moderate Sodium 136 L (137-145) mmol/L Potassium 4.0 (3.5-5.1) mmol/L Chloride 98 (98-107) mmol/L Carbon Dioxide 19 L (22-30) mmol/L Anion Gap 19 mmol/L BUN 23 H (7-17) mg/dL Creatinine 0.90 (0.52-1.04) mg/dL Est GFR (CKD-EPI)AfAm 90 (>60 ml/min/1.73 sqM) Est GFR (CKD-EPI)NonAf 78 (>60 ml/min/1.73 sqM) Glucose 103 H (74-99) mg/dL Plasma Lactic Acid Zaid 1.7 (0.7-2.0) mmol/L Calcium 10.1 (8.4-10.2) mg/dL Total Bilirubin 0.9 (0.2-1.3) mg/dL AST 50 H (14-36) U/L ALT 46 H (4-34) U/L Alkaline Phosphatase 127 H (38-126) U/L Total Protein 8.4 H (6.3-8.2) g/dL Albumin 5.1 H (3.5-5.0) g/dL Amylase 59 (30-110) U/L Lipase 57 (23-300) U/L HCG, Qual Urine Color Urine Appearance (Clear) Urine pH (5.0-8.0) Ur Specific Lamont (1.001-1.035) Urine Protein (Negative) Urine Glucose (UA) (Negative) Urine Ketones (Negative) Urine Blood (Negative) Urine Nitrite (Negative) Urine Bilirubin (Negative) Urine Urobilinogen (<2.0) mg/dL Ur Leukocyte Esterase (Negative) Urine RBC (0-5) /hpf Urine WBC (0-5) /hpf Ur Squamous Epith Cells (0-4) /hpf Urine Bacteria (None) /hpf Hyaline Casts (0-2) /lpf Urine Mucus (None) /hpf 03/29/24 03/29/24 Range/Units 21:49 23:00 WBC (3.8-10.6) k/uL RBC (3.80-5.40) m/uL Hgb (11.4-16.0) gm/dL Hct (34.0-46.0) % MCV (80.0-100.0) fL MCH (25.0-35.0) pg MCHC (31.0-37.0) g/dL RDW (11.5-15.5) % Plt Count (150-450) k/uL MPV Neutrophils % % Lymphocytes % % Monocytes % % Eosinophils % % Basophils % % Neutrophils # (1.3-7.7) k/uL Lymphocytes # (1.0-4.8) k/uL Monocytes # (0-1.0) k/uL Eosinophils # (0-0.7) k/uL Basophils # (0-0.2) k/uL Hypochromasia Anisocytosis Microcytosis Sodium (137-145) mmol/L Potassium (3.5-5.1) mmol/L Chloride (98-107) mmol/L Carbon Dioxide (22-30) mmol/L Anion Gap mmol/L BUN (7-17) mg/dL Creatinine (0.52-1.04) mg/dL Est GFR (CKD-EPI)AfAm (>60 ml/min/1.73 sqM) Est GFR (CKD-EPI)NonAf (>60 ml/min/1.73 sqM) Glucose (74-99) mg/dL Plasma Lactic Acid Zaid (0.7-2.0) mmol/L Calcium (8.4-10.2) mg/dL Total Bilirubin (0.2-1.3) mg/dL AST (14-36) U/L ALT (4-34) U/L Alkaline Phosphatase (38-126) U/L Total Protein (6.3-8.2) g/dL Albumin (3.5-5.0) g/dL Amylase (30-110) U/L Lipase (23-300) U/L HCG, Qual Not Detected Urine Color Colorless Urine Appearance Clear (Clear) Urine pH 7.0 (5.0-8.0) Ur Specific Lam[place] 1.014 (1.001-1.035) Urine Protein 1+ H (Negative) Urine Glucose (UA) Negative (Negative) Urine Ketones 2+ H (Negative) Urine Blood Negative (Negative) Urine Nitrite Negative (Negative) Urine Bilirubin Negative (Negative) Urine Urobilinogen <2.0 (<2.0) mg/dL Ur Leukocyte Esterase Negative (Negative) Urine RBC 1 (0-5) /hpf Urine WBC 2 (0-5) /hpf Ur Squamous Epith Cells 3 (0-4) /hpf Urine Bacteria Rare H (None) /hpf Hyaline Casts 22 H (0-2) /lpf Urine Mucus Moderate H (None) /hpf - EKG Data EKG Comments: 12-lead Electrocardiogram Interpretation Note EKG was reviewed and interpreted by myself. 12-lead ECG performed at 2151 is interpreted by me as revealing normal sinus rhythm at a rate of 83 beats per minute. Oak[place] is normal. [place] interval is 131 ms, QRS duration is 88 ms, QTc is 432 ms.. There were no ST or T wave abnormalities to suggest myocardial ischemia or injury. R wave progression across the precordium was satisfactory. By my interpretation this EKG is non-diagnostic for acute ischemia. (Juan Carlos Blood) Disposition <Jodie Ruffin - Last Filed: 03/29/24 21:17> Time of Disposition: 01:10 <Juan Carlos Blood - Last Filed: 03/30/24 01:18> Clinical Impression: Intractable abdominal pain, Intractable nausea and vomiting Disposition: ADMITTED IP TO THIS [facility] Condition: Stable Referrals: Cynthia Fox MD [Primary Care Provider] - 1-2 days
[2024-03-29] MEDS: ONDANSETRON 4 MG/2 ML VIAL IVP STA (21:57)
[2024-03-29 21:58] LABS: Anisocytosis Slight; Basophils # (A) 0.1 k/uL (0-0.2); Basophils % (A) 0 %; Eosinophils # (A) 0.4 k/uL (0-0.7); Eosinophils % (A) 2 %; HCT 35.4 % (34.0-46.0); HGB 11.6 gm/dL (11.4-16.0); Hypochromasia Slight; Lymphocytes % (A) 12 %; MCH 24.3 pg (25.0-35.0); MCHC 32.9 g/dL (31.0-37.0); MCV 73.8 fL (80.0-100.0); Mean Platelet Volume 7.2; Microcytosis Moderate; Monocytes # (A) 0.7 k/uL (0-1.0); Monocytes % (A) 4 %; Neutrophils % (A) 80 %; Platelet Count 400 k/uL (150-450); WBC 16.3 k/uL (3.8-10.6)
[2024-03-29] MEDS: SODIUM CHLORIDE 0.9% 1,000 ML IV STA (22:03)
[2024-03-29] MEDS: HYDROmorphone 0.5 MG/0.5 ML SYRINGE IVP STA (22:04)
[2024-03-29 22:12] LABS: Sodium 136 mmol/L (137-145)
[2024-03-29 22:13] LABS: ALT 46 U/L (4-34); AST 50 U/L (14-36); African American GFR (CKD) 90 (>60 ml/min/1.73 sqM); Albumin 5.1 g/dL (3.5-5.0); Alkaline Phosphatase 127 U/L (38-126); Amylase 59 U/L (30-110); Anion Gap 19 mmol/L; Blood Urea Nitrogen 23 mg/dL (7-17); Calcium 10.1 mg/dL (8.4-10.2); Carbon Dioxide 19 mmol/L (22-30); Chloride 98 mmol/L (98-107); Glucose 103 mg/dL (74-99); Lipase 57 U/L (23-300); Non-African American GFR(CKD) 78 (>60 ml/min/1.73 sqM); Total Bilirubin 0.9 mg/dL (0.2-1.3); Total Protein 8.4 g/dL (6.3-8.2)
[2024-03-29] MEDS: PANTOPRAZOLE 40 MG/10 ML VIAL IVP STA (22:19)
[2024-03-29 23:43] LABS: Appearance,Urine Clear (Clear); Bacteria,Urine Rare /hpf; Bilirubin,Urine Negative (Negative); Blood,Urine Negative (Negative); Color,Urine Colorless; Glucose,Urine (UA) Negative (Negative); Hyaline Casts,Urine 22 /lpf (0-2); Ketones,Urine 2+ (Negative); Leukocyte Esterase,Urine Negative (Negative); Mucus,Urine Moderate /hpf; Nitrite,Urine Negative (Negative); Protein,Urine 1+ (Negative); RBC,Urine 1 /hpf (0-5); Specific Gravity,Urine 1.014 (1.001-1.035); Squamous Epithelial Cell,Urine 3 /hpf (0-4); Urobilinogen,Urine <2.0 mg/dL (<2.0); WBC,Urine 2 /hpf (0-5)
[2024-03-29] MEDS: METOCLOPRAMIDE 5 MG/ML 2 ML VIAL IVP STA (23:46)
[2024-03-29] MEDS: diphenhydrAMINE 50 MG/ML 1 ML VIAL IVP STA (23:50)
--- NOTE | 2024-03-30 01:08 | CT ---
EXAM: CT Abdomen and Pelvis With Intravenous Contrast CLINICAL HISTORY: CT Reason: abd pain, intractable n/v TECHNIQUE: Axial computed tomography images of the abdomen and pelvis with intravenous contrast. CTDI is 20 mGy and DLP is 941.1 mGy-cm. This CT exam was performed using one or more of the following dose reduction techniques: automated exposure control, adjustment of the mA and/or kV according to patient size, and/or use of iterative reconstruction technique. COMPARISON: October 15, 2023 FINDINGS: Lung bases: Unremarkable. No mass. No consolidation. ABDOMEN: Liver: There is fatty infiltration of the liver. No focal liver lesion is seen. Gallbladder and bile ducts: Unremarkable. No calcified stones. No ductal dilation. Pancreas: Unremarkable. No mass. No ductal dilation. Spleen: Unremarkable. No splenomegaly. Adrenals: Unremarkable. No mass. Kidneys and ureters: Delayed images show normal renal contrast excretion bilaterally. No hydronephrosis. Stomach and bowel: Unremarkable. No obstruction. No mucosal thickening. PELVIS: Appendix: The appendix is normal. Bowel loops are nondilated. No acute inflammatory changes are seen involving the bowel. Bladder: The urinary bladder is decompressed but within normal limits. Reproductive: Unremarkable as visualized. ABDOMEN and PELVIS: Intraperitoneal space: Unremarkable. No free air. No significant fluid collection. Bones/joints: No acute fracture. No dislocation. Soft tissues: Unremarkable. Vasculature: Unremarkable. No abdominal aortic aneurysm. Lymph nodes: Unremarkable. No enlarged lymph nodes. IMPRESSION: The appendix is normal. Bowel loops are nondilated. No acute inflammatory changes are seen involving the bowel. He process is seen within the abdomen or pelvis.
[2024-03-30] MEDS ORDERED: NALOXONE 0.4 MG/ML 1 ML VIAL IV PRN (01:12)
[2024-03-30] MEDS ORDERED: HYDROmorphone 0.5 MG/0.5 ML SYRINGE IVP PRN (01:12)
[2024-03-30] MEDS: SODIUM CHLORIDE 0.9% 1,000 ML IV SCH (02:09)
[2024-03-30] MEDS: ONDANSETRON 4 MG/2 ML VIAL IVP PRN (03:09)
[2024-03-30] MEDS: HALOPERIDOL LACTATE 5 MG/ML 1 ML VIAL IVP STA (03:30)
[2024-03-30] MEDS: diphenhydrAMINE 50 MG/ML 1 ML VIAL IVP STA (03:31)
[2024-03-30] MEDS: HEPARIN SODIUM,PORCINE 5,000 UNIT/ML 1 ML VIAL SQ SCH (08:13)
[2024-03-30] MEDS: PANTOPRAZOLE 40 MG/10 ML VIAL IV SCH (08:13)
[2024-03-30] MEDS: METOCLOPRAMIDE 5 MG/ML 2 ML VIAL IVP STA (08:36)
[2024-03-30 10:29] VITALS: TEMP 98.8
[2024-03-30] MEDS ORDERED: HYDROcodone/APAP 10-325MG 1 EACH TAB PO PRN (12:14)
[2024-03-30] MEDS ORDERED: PANTOPRAZOLE 40 MG TABLET PO PRN (12:14)
[2024-03-30] MEDS ORDERED: PROMETHAZINE SUPPOSITORY 25 MG SUPP RECTAL PRN (12:14)
[2024-03-30] MEDS ORDERED: SUCRALFATE 1 GM TAB PO PRN (12:14)
[2024-03-30] MEDS ORDERED: DICYCLOMINE 20 MG TAB PO PRN (12:14)
[2024-03-30] MEDS ORDERED: NON FORMULARY DRUG (Naloxone Hcl [Naloxone Hcl] 4 MG Spray) NASAL PRN (12:14)
[2024-03-30] MEDS ORDERED: AMITRIPTYLINE HCL 25 MG TAB PO PRN (12:14)
[2024-03-30] MEDS ORDERED: ONDANSETRON ODT 4 MG TAB PO PRN (12:14)
[2024-03-30] MEDS ORDERED: PROMETHAZINE 25 MG TAB PO PRN (12:14)
--- NOTE | 2024-03-30 12:18 | P.DS ---
Providers Date of admission: 03/30/24 01:12 Attending physician: Eric Walker MD Primary care physician: Cynthia Fox [facility] Course: 43-year-old pleasant female came in with complaints of nausea vomiting abdominal discomfort does have history of irritable bowel syndrome and gastroparesis. Patient symptoms improved with conservative measures and patient tolerated clear liquid diet at this time. Patient diet will be advanced to soft diet if she can tolerate patient will be discharged today. PHYSICAL EXAMINATION: GENERAL: The patient is alert and oriented x3, not in any acute distress. Well developed, well nourished. HEENT: Pupils are round and equally reacting to light. EOMI. No scleral icterus. No conjunctival pallor. Normocephalic, atraumatic. No pharyngeal erythema. No thyromegaly. CARDIOVASCULAR: S1 and S2 present. No murmurs, rubs, or gallops. PULMONARY: Chest is clear to auscultation, no wheezing or crackles. ABDOMEN: Soft, nontender, nondistended, normoactive bowel sounds. No palpable organomegaly. MUSCULOSKELETAL: No joint swelling or deformity. EXTREMITIES: No cyanosis, clubbing, or pedal edema. NEUROLOGICAL: Gross neurological examination did not reveal any focal deficits. SKIN: No rashes. Assessment and plan -Nausea vomiting, abdominal pain secondary to gastroparesis: Improved symptoms with symptomatic treatment patient will be discharged if she can tolerate soft diet today -Mild dehydration mild hyponatremia secondary to nausea vomiting which improved at this time patient received IV fluids -Fibromyalgia -Hypothyroidism -Irritable bowel syndrome/gastroparesis history Patient will be discharged today if she can tolerate soft diet today Patient Condition at Discharge: Stable Plan - Discharge Summary New Discharge Prescriptions: No Action HYDROcodone/APAP 10-325MG [Herreid 10-325] 1 tab PO TID PRN PRN Reason: Pain Dicyclomine [Bentyl] 20 mg PO QID PRN PRN Reason: IBS Promethazine Suppository [Phenergan] 25 mg RECTAL QID PRN #30 supp PRN Reason: Nausea And Vomiting Ondansetron Odt [Zofran ODT] 4 mg PO Q8HR PRN #30 tab PRN Reason: Nausea And Vomiting FLUoxetine HCL 20 mg PO DAILY Promethazine [Phenergan] 12.5 mg PO DAILY PRN PRN Reason: Nausea Amitriptyline HCl [Elavil] 25 mg PO HS PRN PRN Reason: Insomnia Naloxone HCl 4 mg NASAL DIRECTED PRN PRN Reason: accidental overdose Pantoprazole Sodium [Protonix] 40 mg PO AC-BID PRN PRN Reason: Heartburn/Gerd Sucralfate [Carafate] 1 gm PO TID PRN PRN Reason: Gi Upset Discharge Medication List HYDROcodone/APAP 10-325MG [Herreid 10-325] 1 tab PO TID PRN 04/03/17 [History] Amitriptyline HCl [Elavil] 25 mg PO HS PRN 07/08/23 [History] Dicyclomine [Bentyl] 20 mg PO QID PRN 07/08/23 [History] Promethazine [Phenergan] 12.5 mg PO DAILY PRN 07/08/23 [History] Ondansetron Odt [Zofran ODT] 4 mg PO Q8HR PRN #30 tab 10/14/23 [Rx] Promethazine Suppository [Phenergan] 25 mg RECTAL QID PRN #30 supp 10/14/23 [Rx] FLUoxetine HCL 20 mg PO DAILY 10/15/23 [History] Naloxone HCl 4 mg NASAL DIRECTED PRN 10/15/23 [History] Pantoprazole Sodium [Protonix] 40 mg PO AC-BID PRN 10/15/23 [History] Sucralfate [Carafate] 1 gm PO TID PRN 01/11/24 [History] Follow up Appointment(s)/Referral(s): Cynthia Fox MD [Primary Care Provider] - 1-2 days
--- NOTE | 2024-03-30 12:18 | P.HPIM ---
History of Present Illness 43-year-old pleasant female came in with complaints of nausea vomiting abdominal discomfort does have history of irritable bowel syndrome and gastroparesis. Patient symptoms improved with conservative measures and patient tolerated clear liquid diet at this time. Patient diet will be advanced to soft diet if she can tolerate patient will be discharged today. REVIEW OF SYSTEMS: All other systems are negative except those mentioned in the HPI PHYSICAL EXAMINATION: GENERAL: The patient is alert and oriented x3, not in any acute distress. Well developed, well nourished. HEENT: Pupils are round and equally reacting to light. EOMI. No scleral icterus. No conjunctival pallor. Normocephalic, atraumatic. No pharyngeal erythema. No thyromegaly. CARDIOVASCULAR: S1 and S2 present. No murmurs, rubs, or gallops. PULMONARY: Chest is clear to auscultation, no wheezing or crackles. ABDOMEN: Soft, nontender, nondistended, normoactive bowel sounds. No palpable organomegaly. MUSCULOSKELETAL: No joint swelling or deformity. EXTREMITIES: No cyanosis, clubbing, or pedal edema. NEUROLOGICAL: Gross neurological examination did not reveal any focal deficits. SKIN: No rashes. Assessment and plan -Nausea vomiting, abdominal pain secondary to gastroparesis: Improved symptoms with symptomatic treatment patient will be discharged if she can tolerate soft diet today -Mild dehydration mild hyponatremia secondary to nausea vomiting which improved at this time patient received IV fluids -Fibromyalgia -Hypothyroidism -Irritable bowel syndrome/gastroparesis history Patient will be discharged today if she can tolerate soft diet today Past Medical History Past Medical History: Fibromyalgia, Thyroid Disorder Additional Past Medical History / Comment(s): DDD, bulging discs, neuropathy in legs, thyroid nodules, anemia, environmental allergies, constipation/diarrhea, IBS diagnosed in 2019, chronic gastritis, GERD. History of Any Multi-Drug Resistant Organisms: None Reported Past Surgical History: Hysterectomy, Orthopedic Surgery Additional Past Surgical History / Comment(s): Right wrist and forearm surgery, D&C, mass on vocal cords - surgery and biopsy. Past Anesthesia/Blood Transfusion Reactions: Postoperative Nausea & Vomiting (PONV) Additional Past Anesthesia/Blood Transfusion Reaction / Comment(s): Constipation post-op. Past Psychological History: Anxiety Smoking Status: Former smoker, Vaper Past Alcohol Use History: None Reported Past Drug Use History: Marijuana - Past Family History Mother Family Medical History: No Reported History Father Family Medical History: COPD Additional Family Medical History / Comment(s): "Cardiovascular swelling". Medications and Allergies Home Medications Medication Instructions Recorded Confirmed Type HYDROcodone/APAP 10-325MG [[place] 1 tab PO TID PRN 04/03/17 03/30/24 History 10-325] Amitriptyline HCl [Elavil] 25 mg PO HS PRN 07/08/23 03/30/24 History Dicyclomine [Bentyl] 20 mg PO QID PRN 07/08/23 03/30/24 History Promethazine [Phenergan] 12.5 mg PO DAILY PRN 07/08/23 03/30/24 History Ondansetron Odt [Zofran ODT] 4 mg PO Q8HR PRN #30 tab 10/14/23 03/30/24 Rx Promethazine Suppository 25 mg RECTAL QID PRN #30 supp 10/14/23 03/30/24 Rx [Phenergan] FLUoxetine HCL 20 mg PO DAILY 10/15/23 03/30/24 History Naloxone HCl 4 mg NASAL DIRECTED PRN 10/15/23 03/30/24 History Pantoprazole Sodium [Protonix] 40 mg PO AC-BID PRN 10/15/23 03/30/24 History Sucralfate [Carafate] 1 gm PO TID PRN 01/11/24 03/30/24 History Allergies Allergy/AdvReac Type Severity Reaction Status Date / Time propoxyphene Allergy Rash/Hives Verified 03/30/24 09:55 [From [facility]] Physical Exam Vitals: Vital Signs Temp Pulse Resp BP Pulse Ox 03/30/24 10:28 98.8 F 87 16 121/89 97 03/30/24 06:15 98.4 F 89 18 106/60 98 03/30/24 02:12 98.5 F 84 15 115/75 98 03/29/24 23:55 88 18 114/81 91 L 03/29/24 21:41 98.7 F 92 18 116/98 100 03/29/24 21:10 97.7 F 111 H 20 113/73 100 Intake and Output 03/29/24 03/30/24 03/30/24 22:59 06:59 14:59 Other: Weight 77.111 kg Results CBC & Chem 7: 03/29/24 21:49 03/29/24 21:49 Labs: Abnormal Lab Results - Last 24 Hours (Table) 03/29/24 03/29/24 03/29/24 Range/Units 21:49 21:49 23:00 WBC 16.3 H (3.8-10.6) k/uL MCV 73.8 L (80.0-100.0) fL MCH 24.3 L (25.0-35.0) pg RDW 17.0 H (11.5-15.5) % Neutrophils # 13.0 H (1.3-7.7) k/uL Sodium 136 L (137-145) mmol/L Carbon Dioxide 19 L (22-30) mmol/L BUN 23 H (7-17) mg/dL Glucose 103 H (74-99) mg/dL AST 50 H (14-36) U/L ALT 46 H (4-34) U/L Alkaline Phosphatase 127 H (38-126) U/L Total Protein 8.4 H (6.3-8.2) g/dL Albumin 5.1 H (3.5-5.0) g/dL Urine Protein 1+ H (Negative) Urine Ketones 2+ H (Negative) Urine Bacteria Rare H (None) /hpf Hyaline Casts 22 H (0-2) /lpf Urine Mucus Moderate H (None) /hpf
[2024-03-30] MEDS: FLUoxetine HCL 20 MG CAP PO SCH (13:26)
[2024-03-30 15:13] VITALS: BP 130/70; PULSE 74; RESP 20
== END 2024-03-30 15:12 | disposition home or self-care (01) ==
LOC: EC 21:07 → 6NMEDSUR 03-30 01:12
PROVIDERS: ADMIT Internal Medicine; ATTEND Internal Medicine
DX: K31.84 Gastroparesis (principal); E86.0 Dehydration; E87.1 Hypo-osmolality and hyponatremia; K58.0 Irritable bowel syndrome with diarrhea; R74.01 Elevation of levels of liver transaminase levels; M79.7 Fibromyalgia; E03.9 Hypothyroidism, unspecified; K29.50 Unspecified chronic gastritis without bleeding; F12.10 Cannabis abuse, uncomplicated; Z79.899 Other long term (current) drug therapy; Z88.5 Allergy status to narcotic agent; Z87.891 Personal history of nicotine dependence
CPT/HCPCS: 36415; 93005; 80053; 82150; 83605; 83690; 85025; 81001; 84703; 74177; G0378; J1200 ×2; J1630; J1644; J2765 ×2; J2405 ×2; J1170; Q9967; J2470 ×2; 96361; 96372; 96374; 96375; 96376; 99285

== ENCOUNTER 2024-06-14 18:53 | Observation (INO) | payer MEDICARE, OTHER ==
[2024-06-14] MEDS: SODIUM CHLORIDE 0.9% 2,000 ML IV STA (19:31)
[2024-06-14] MEDS: diphenhydrAMINE 50 MG/ML 1 ML VIAL IVP STA (19:33)
[2024-06-14] MEDS: METOCLOPRAMIDE 5 MG/ML 2 ML VIAL IVP STA (19:33)
--- NOTE | 2024-06-14 19:35 | ED ---
General Adult HPI - General Chief complaint: Nausea/Vomiting/Diarrhea Stated complaint: N/V Time Seen by Provider: 06/14/24 19:22 Source: patient, EMS Mode of arrival: EMS Limitations: no limitations - History of Present Illness Initial comments: 43-year-old female presenting with chief complaint of nausea and vomiting. Patient has been seen here frequently in the past for intractable nausea vomiting and abdominal pain. States that she believes this is a flareup of her IBS and gastritis. Started around 530 yesterday. No localized abdominal pain. No fevers or chills. No chest pain or difficulty breathing. No diarrhea. No hematemesis. At home she takes Zofran, Pepcid, Protonix, Bentyl. - Related Data Home Medications Medication Instructions Recorded Confirmed HYDROcodone/APAP 10-325MG [[place] 1 tab PO TID PRN 04/03/17 06/15/24 10-325] Amitriptyline HCl [Elavil] 25 mg PO HS PRN 07/08/23 06/15/24 Dicyclomine [Bentyl] 20 mg PO QID PRN 07/08/23 06/15/24 Promethazine [Phenergan] 12.5 mg PO DAILY PRN 07/08/23 06/15/24 FLUoxetine HCL 20 mg PO DAILY 10/15/23 06/15/24 Naloxone HCl 4 mg NASAL DIRECTED PRN 10/15/23 06/15/24 Pantoprazole Sodium [Protonix] 40 mg PO AC-BID PRN 10/15/23 06/15/24 Sucralfate [Carafate] 1 gm PO TID PRN 01/11/24 06/15/24 Previous Rx's Medication Instructions Recorded Ondansetron Odt [Zofran ODT] 4 mg PO Q8HR PRN #30 tab 10/14/23 Promethazine Suppository 25 mg RECTAL QID PRN #30 supp 10/14/23 [Phenergan] Allergies Allergy/AdvReac Type Severity Reaction Status Date / Time propoxyphene Allergy Rash/Hives Verified 06/14/24 18:57 [From Sissy] Review of Systems ROS Statement: Those systems with pertinent positive or pertinent negative responses have been documented in the HPI. ROS Other: All systems not noted in ROS Statement are negative. Past Medical History Past Medical History: Fibromyalgia, Thyroid Disorder Additional Past Medical History / Comment(s): DDD, bulging discs, neuropathy in legs, thyroid nodules, anemia, environmental allergies, constipation/diarrhea, IBS diagnosed in 2019, chronic gastritis, GERD, hiatal hernia, umbilical hernia History of Any Multi-Drug Resistant Organisms: None Reported Past Surgical History: Hysterectomy, Orthopedic Surgery Additional Past Surgical History / Comment(s): Right wrist and forearm surgery, D&C, mass on vocal cords - surgery and biopsy. Past Anesthesia/Blood Transfusion Reactions: Postoperative Nausea & Vomiting (PONV) Additional Past Anesthesia/Blood Transfusion Reaction / Comment(s): Constipation post-op. Past Psychological History: Anxiety Smoking Status: Former smoker, Vaper Past Alcohol Use History: None Reported Past Drug Use History: Marijuana - Past Family History Mother Family Medical History: No Reported History Father Family Medical History: COPD Additional Family Medical History / Comment(s): "Cardiovascular swelling". General Exam Limitations: no limitations General appearance: alert, in no apparent distress Head exam: Present: atraumatic, normocephalic, normal inspection Eye exam: Present: normal appearance Neck exam: Present: normal inspection. Absent: meningismus Respiratory exam: Present: normal lung sounds bilaterally. Absent: respiratory distress, wheezes, rales, rhonchi, stridor Cardiovascular Exam: Present: regular rate, normal rhythm, normal heart sounds. Absent: systolic murmur, diastolic murmur, rubs, gallop, clicks GI/Abdominal exam: Present: soft. Absent: distended, tenderness, guarding, rebound, rigid Neurological exam: Present: alert, oriented X3 Psychiatric exam: Present: normal affect, normal mood Skin exam: Present: warm, dry Course Vital Signs 06/14/24 06/14/24 06/15/24 18:57 23:16 01:41 Temperature 98.8 F 98.1 F Pulse Rate 91 86 Pulse Rate [ 83 Pulse Oximetery ] Respiratory 18 16 16 Rate Blood Pressure 156/99 104/65 Blood Pressure 168/98 [Right Arm] O2 Sat by Pulse 100 96 100 Oximetry 06/15/24 01:54 Temperature 98.7 F Pulse Rate 81 Pulse Rate [ Pulse Oximetery ] Respiratory 19 Rate Blood Pressure 139/81 Blood Pressure [Right Arm] O2 Sat by Pulse 97 Oximetry Medical Decision Making - Medical Decision Making Was pt. sent in by a medical professional or institution ([facility], [facility], urgent care, hospital, or senior living...) When possible be specific @ -No Did you speak to anyone other than the patient for history (EMS, parent, family, police, friend...)? What history was obtained from this source @ -No Did you review nursing and triage notes (agree or disagree)? Why? @ -I reviewed and agree with nursing and triage notes Were old charts reviewed (outside hosp., previous admission, EMS record, old EKG, old radiological studies, urgent care reports/EKG's, senior living records)? Report findings @ -No old charts were reviewed Differential Diagnosis (chest pain, altered mental status, abdominal pain women, abdominal pain men, vaginal bleeding, weakness, fever, dyspnea, syncope, headache, dizziness, GI bleed, back pain, seizure, CVA, palpatations, mental health, musculoskeletal)? @ -MDM Differential Abdominal Pain Women: Appendicitis, Cholecystitis, diverticulosis, ischemic bowel, pancreatitis, hepatitis, UTI, gastroenteritis, AAA, incarcerated hernia, bowel obstruction, constipation, inflammatory bowel, hepatitis, peptic ulcer disease, splenic infarction, perforated viscus, vulvitis, ovarian torsion, PID, kidney stone, placenta abruption... This is not meant to be an all-inclusive list EKG interpreted by me (3pts min.). @ -As above X-rays interpreted by me (1pt min.). @ -None done CT interpreted by me (1pt min.). @ -None done U/S interpreted by me (1pt. min.). @ -None done What testing was considered but not performed or refused? (CT, X-rays, U/S, lab s)? Why? @ -None What meds were considered but not given or refused? Why? @ -None Did you discuss the management of the patient with other professionals (professionals i.e. [facility], [facility], lab, RT, psych nurse, child protective services social worker, river crossing supervisor, teacher, appeals officer, case management assistant)? Give summary @ -Spoke with Dr. Mendosa who accepts admission Was smoking cessation discussed for >3mins.? @ -No Was critical care preformed (if so, how long)? @ -No Were there social determinants of health that impacted care today? How? (Homelessness, low income, unemployed, alcoholism, drug addiction, transportation, low edu. Level, literacy, decrease access to med. care, snf, rehab)? @ -No Was there de-escalation of care discussed even if they declined (Discuss DNR or withdrawal of care, Hospice)? DNR status @ -No What co-morbidities impacted this encounter? (DM, HTN, Smoking, COPD, CAD, Cancer, CVA, ARF, Chemo, Hep., AIDS, mental health diagnosis, sleep apnea, morbid obesity)? @ -None Was patient admitted / discharged? Hospital course, mention meds given and route, prescriptions, significant lab abnormalities, going to OR and other pertinent info. @ -43-year-old female presenting chief complaint of nausea vomiting and abdominal pain. History and physical examination are conducted. Transaminitis is seen which is consistent with previous values for this patient. WBC 16.4, likely reactive. After Zofran, Reglan, Benadryl, Bentyl, Protonix, scopolamine patch, patient is still unable to tolerate oral intake. She will be admitted for intractable nausea and vomiting. She is agreeable with this plan. I discussed this case with my attending Dr. Jimenez. Undiagnosed new problem with uncertain prognosis? @ -No Drug Therapy requiring intensive monitoring for toxicity (Heparin, Nitro, Insulin, Cardizem)? @ -No Were any procedures done? @ -No Diagnosis/symptom? @ -Intractable nausea and vomiting Acute, or Chronic, or Acute on Chronic? @ -Acute on chronic Uncomplicated (without systemic symptoms) or Complicated (systemic symptoms)? @ -Complicated Side effects of treatment? @ -No Exacerbation, Progression, or Severe Exacerbation? @ -No Poses a threat to life or bodily function? How? (Chest pain, [place], [place], pneumonia, PE, COPD, DKA, ARF, appy, cholecystitis, CVA, Diverticulitis, Homicidal, Suicidal, threat to staff... and all critical care pts) @ -Potential - Lab Data Result diagrams: 06/14/24 19:40 06/14/24 20:25 Lab Results 06/14/24 06/14/24 06/14/24 Range/Units 19:40 20:25 21:11 WBC 16.4 H (3.8-10.6) k/uL RBC 5.32 (3.80-5.40) m/uL Hgb 13.1 (11.4-16.0) gm/dL Hct 39.0 (34.0-46.0) % MCV 73.4 L (80.0-100.0) fL MCH 24.6 L (25.0-35.0) pg MCHC 33.6 (31.0-37.0) g/dL RDW 18.1 H (11.5-15.5) % Plt Count 319 (150-450) k/uL MPV 8.8 Neutrophils % 83 % Lymphocytes % 11 % Monocytes % 4 % Eosinophils % 1 % Basophils % 0 % Neutrophils # 13.7 H (1.3-7.7) k/uL Lymphocytes # 1.8 (1.0-4.8) k/uL Monocytes # 0.7 (0-1.0) k/uL Eosinophils # 0.1 (0-0.7) k/uL Basophils # 0.1 (0-0.2) k/uL Hypochromasia Slight Anisocytosis Slight Microcytosis Moderate Sodium 138 (137-145) mmol/L Potassium 3.9 (3.5-5.1) mmol/L Chloride 101 (98-107) mmol/L Carbon Dioxide 24 (22-30) mmol/L Anion Gap 13 mmol/L BUN 25 H (7-17) mg/dL Creatinine 0.96 (0.52-1.04) mg/dL Est GFR (CKD-EPI)AfAm 83 (>60 ml/min/1.73 sqM) Est GFR (CKD-EPI)NonAf 72 (>60 ml/min/1.73 sqM) Glucose 118 H (74-99) mg/dL Calcium 9.7 (8.4-10.2) mg/dL Total Bilirubin 0.8 (0.2-1.3) mg/dL AST 45 H (14-36) U/L ALT 72 H (4-34) U/L Alkaline Phosphatase 139 H (38-126) U/L Total Protein 9.4 H (6.3-8.2) g/dL Albumin 5.1 H (3.5-5.0) g/dL Amylase 52 (30-110) U/L Lipase 56 (23-300) U/L Urine Color Yellow Urine Appearance Clear (Clear) Urine pH 6.0 (5.0-8.0) Ur Specific [place] 1.027 (1.001-1.035) Urine Protein 2+ H (Negative) Urine Glucose (UA) Negative (Negative) Urine Ketones 3+ H (Negative) Urine Blood Small H (Negative) Urine Nitrite Negative (Negative) Urine Bilirubin Negative (Negative) Urine Urobilinogen <2.0 (<2.0) mg/dL Ur Leukocyte Esterase Negative (Negative) Urine RBC 6 H (0-5) /hpf Urine WBC 6 H (0-5) /hpf Ur Squamous Epith Cells 1 (0-4) /hpf Urine Bacteria Rare H (None) /hpf Urine Mucus Few H (None) /hpf Disposition Clinical Impression: Intractable vomiting with nausea Disposition: ADMITTED IP TO THIS HOSP Condition: Fair Time of Disposition: 00:39
[2024-06-14 20:46] LABS: ALT 72 U/L (4-34); AST 45 U/L (14-36); African American GFR (CKD) 83 (>60 ml/min/1.73 sqM); Albumin 5.1 g/dL (3.5-5.0); Alkaline Phosphatase 139 U/L (38-126); Amylase 52 U/L (30-110); Anion Gap 13 mmol/L; Blood Urea Nitrogen 25 mg/dL (7-17); Calcium 9.7 mg/dL (8.4-10.2); Carbon Dioxide 24 mmol/L (22-30); Chloride 101 mmol/L (98-107); Glucose 118 mg/dL (74-99); Lipase 56 U/L (23-300); Non-African American GFR(CKD) 72 (>60 ml/min/1.73 sqM); Potassium 3.9 mmol/L (3.5-5.1); Sodium 138 mmol/L (137-145); Total Bilirubin 0.8 mg/dL (0.2-1.3); Total Protein 9.4 g/dL (6.3-8.2)
[2024-06-14 21:27] LABS: Anisocytosis Slight; Basophils # (A) 0.1 k/uL (0-0.2); Basophils % (A) 0 %; Eosinophils # (A) 0.1 k/uL (0-0.7); Eosinophils % (A) 1 %; HGB 13.1 gm/dL (11.4-16.0); Hypochromasia Slight; Lymphocytes # (A) 1.8 k/uL (1.0-4.8); Lymphocytes % (A) 11 %; MCH 24.6 pg (25.0-35.0); MCHC 33.6 g/dL (31.0-37.0); MCV 73.4 fL (80.0-100.0); Mean Platelet Volume 8.8; Microcytosis Moderate; Monocytes # (A) 0.7 k/uL (0-1.0); Monocytes % (A) 4 %; Neutrophils # (A) 13.7 k/uL (1.3-7.7); Neutrophils % (A) 83 %; Platelet Count 319 k/uL (150-450); RBC 5.32 m/uL (3.80-5.40); RDW 18.1 % (11.5-15.5); WBC 16.4 k/uL (3.8-10.6)
[2024-06-14] MEDS: ONDANSETRON 4 MG/2 ML VIAL IVP STA (21:31)
[2024-06-14 21:55] LABS: Appearance,Urine Clear (Clear); Bacteria,Urine Rare /hpf; Bilirubin,Urine Negative (Negative); Blood,Urine Small (Negative); Color,Urine Yellow; Glucose,Urine (UA) Negative (Negative); Ketones,Urine 3+ (Negative); Leukocyte Esterase,Urine Negative (Negative); Mucus,Urine Few /hpf; Nitrite,Urine Negative (Negative); Protein,Urine 2+ (Negative); RBC,Urine 6 /hpf (0-5); Specific Gravity,Urine 1.027 (1.001-1.035); Squamous Epithelial Cell,Urine 1 /hpf (0-4); Urobilinogen,Urine <2.0 mg/dL (<2.0); WBC,Urine 6 /hpf (0-5)
[2024-06-14] MEDS: PANTOPRAZOLE 40 MG/10 ML VIAL IVP STA (22:36)
[2024-06-14] MEDS: DICYCLOMINE 10 MG/ML 2 ML AMP IM STA (22:37)
[2024-06-14] MEDS: SCOPOLAMINE 1 MG/72 HR PATCH TRANSDERM STA (23:13)
[2024-06-15] MEDS ORDERED: NALOXONE 0.4 MG/ML 1 ML VIAL IV PRN (00:38)
[2024-06-15] MEDS: PROCHLORPERAZINE SUPPOSITORY 25 MG SUPP RECTAL PRN (02:52)
[2024-06-15] MEDS: SODIUM CHLORIDE 0.9% 1,000 ML IV SCH (02:53)
[2024-06-15] MEDS: ONDANSETRON 4 MG/2 ML VIAL IVP PRN (05:35)
[2024-06-15] MEDS ORDERED: NON FORMULARY DRUG (Naloxone Hcl [Naloxone Hcl] 4 MG Spray) NASAL PRN (07:04)
[2024-06-15] MEDS ORDERED: DICYCLOMINE 20 MG TAB PO PRN (07:04)
[2024-06-15] MEDS ORDERED: SUCRALFATE 1 GM TAB PO PRN (07:04)
[2024-06-15] MEDS ORDERED: PROMETHAZINE SUPPOSITORY 25 MG SUPP RECTAL PRN (07:04)
[2024-06-15] MEDS ORDERED: PANTOPRAZOLE 40 MG TABLET PO PRN (07:04)
[2024-06-15] MEDS ORDERED: PROMETHAZINE 25 MG TAB PO PRN (07:04)
[2024-06-15] MEDS ORDERED: HYDROcodone/APAP 10-325MG 1 EACH TAB PO PRN (07:04)
[2024-06-15] MEDS: FLUoxetine HCL 20 MG CAP PO SCH (08:23)
[2024-06-15] MEDS: ENOXAPARIN 40 MG/0.4 ML SYRINGE SQ SCH (16:19)
--- NOTE | 2024-06-15 16:34 | P.HPIM ---
History of Present Illness H&P Date: 06/15/24 Chief Complaint: Nausea vomiting very pleasant 43-year-old patient, follows with Dr. Cynthia Fox. Chronic stable medical conditions include fibromyalgia, hypothyroid, herniated disc of the lower back. Peripheral neuropathy. Thyroid nodules Environmental hernan rgies. IBS was diagnosed in 2019. Patient is followed up with Dr. Hermelinda Allison from GI. Has had endoscopy that showed hiatal hernia.nonalcoholic fatty liver disease Patient gets episodes described as: often times she will have nausea which is rather chronic and she gets the shaking feeling inside for which she takes amitriptyline. . Patient has these episodes of increased nausea vomiting it comes and goes. Normally these episodes she will also have 1 loose stool. And gets abdominal discomfort from nausea and vomiting. This with 2 days of nausea vomiting. No fever no chills. Slight abdominal discomfort. No urinary symptoms. This morning still having some vomiting. Rather watery-clear Review of systems: GEN.: Tired EYES: None HEENT: None NECK: None RESPIRATORY: None CARDIOVASCULAR: None GASTROINTESTINAL: As above GENITOURINARY: None MUSCULOSKELETAL: Chronic low back pain LYMPHATICS: None HEMATOLOGICAL: None PSYCHIATRY: Anxiety NEUROLOGICAL: As above Social history: Patient smoked a pack a day for 26 years. Stopped 2018. Patient does vaping and smokes marijuana. Lives with her fianc. Patient has medical marijuana both for pain and nausea. Physical examination: VITAL SIGNS: 98.4, 83, 16, 1 3586, 100% room air GENERAL: BMI 28.2, in bed, tired retching EYES: Pupils equal. Conjunctiva robert l. HEENT: External appearance of nose and ears normal, oral cavity grossly normal. NECK: JVD not raised; masses not palpable. HEART: First and second heart sounds are normal; no edema. LUNGS: Respiratory rate normal; decreased breath sound. ABDOMEN: Soft, nontender, liver spleen not palpable, no masses palpable. PSYCH: [Alert and oriented x3; mood and affect tired MUSCULOSKELETAL:No Clubbing/cyanosis;muscles-grossly intact NEUROLOGICAL: Cranial nerves grossly intact; no facial asymmetry, power and sensation grossly intact. LYMPHATICS: No lymph nodes palpable in the axilla and neck INVESTIGATIONS, reviewed in the clinical context: June 14, 2024: White count 16.4 hemoglobin 13.1 platelets 319 sodium 138 potassium 3.9 creatinine 0.96 AST 45 ALT 72 alkaline phosphatase 139 Assessment plan: -Acute flareup of irritable bowel syndrome. Patient has a cyclical presentation rather frequently IV Reglan. Scopolamine patch. IV Ativan Soft diet -GERD PPI -Anxiety and depression otherwise specified Elavil. Prozac. -Nonalcoholic fatty liver disease follow with Dr. Hermelinda Allison -Herniated disc disease lumbar spine. [place] as needed -Full code Discussed with patient. Sit upright. Past Medical History Past Medical History: Fibromyalgia, Thyroid Disorder Additional Past Medical History / Comment(s): DDD, bulging discs, neuropathy in legs, thyroid nodules, anemia, environmental allergies, constipation/diarrhea, IBS diagnosed in 2019, chronic gastritis, GERD, hiatal hernia, umbilical hernia History of Any Multi-Drug Resistant Organisms: None Reported Past Surgical History: Hysterectomy, Orthopedic Surgery Additional Past Surgical History / Comment(s): Right wrist and forearm surgery, D&C, mass on vocal cords - surgery and biopsy. Past Anesthesia/Blood Transfusion Reactions: Postoperative Nausea & Vomiting (PONV) Additional Past Anesthesia/Blood Transfusion Reaction / Comment(s): Constipation post-op. Past Psychological History: Anxiety Smoking Status: Former smoker, Vaper Past Alcohol Use History: None Reported Past Drug Use History: Marijuana - Past Family History Mother Family Medical History: No Reported History Father Family Medical History: COPD Additional Family Medical History / Comment(s): "Cardiovascular swelling". Medications and Allergies Home Medications Medication Instructions Recorded Confirmed Type HYDROcodone/APAP 10-325MG [[place] 1 tab PO TID PRN 04/03/17 06/15/24 History 10-325] Amitriptyline HCl [Elavil] 25 mg PO HS PRN 07/08/23 06/15/24 History Dicyclomine [Bentyl] 20 mg PO QID PRN 07/08/23 06/15/24 History Promethazine [Phenergan] 12.5 mg PO DAILY PRN 07/08/23 06/15/24 History Ondansetron Odt [Zofran ODT] 4 mg PO Q8HR PRN #30 tab 10/14/23 06/15/24 Rx Promethazine Suppository 25 mg RECTAL QID PRN #30 supp 10/14/23 06/15/24 Rx [Phenergan] FLUoxetine HCL 20 mg PO DAILY 10/15/23 06/15/24 History Naloxone HCl 4 mg NASAL DIRECTED PRN 10/15/23 06/15/24 History Pantoprazole Sodium [Protonix] 40 mg PO AC-BID PRN 10/15/23 06/15/24 History Sucralfate [Carafate] 1 gm PO TID PRN 01/11/24 06/15/24 History Allergies Allergy/AdvReac Type Severity Reaction Status Date / Time propoxyphene Allergy Rash/Hives Verified 06/14/24 18:57 [From [facility]] Physical Exam Vitals: Vital Signs Temp Pulse Pulse Resp BP BP Pulse Ox 06/15/24 08:13 98.4 F 83 16 135/86 06/15/24 03:10 83 122/83 06/15/24 02:00 98.1 F 79 16 168/98 100 06/15/24 01:54 98.7 F 81 19 139/81 97 06/15/24 01:41 98.1 F 83 16 168/98 100 06/14/24 23:16 86 16 104/65 96 06/14/24 18:57 98.8 F 91 18 156/99 100 Intake and Output 06/14/24 06/15/24 06/15/24 22:59 06:59 14:59 Output Total 20 150 Balance -20 -150 Output: Emesis 20 150 Other: # Voids 1 Weight 79.379 kg 79.379 kg Results CBC & Chem 7: 06/14/24 19:40 06/14/24 20:25 Labs: Abnormal Lab Results - Last 24 Hours (Table) 06/14/24 06/14/24 06/14/24 Range/Units 19:40 20:25 21:11 WBC 16.4 H (3.8-10.6) k/uL MCV 73.4 L (80.0-100.0) fL MCH 24.6 L (25.0-35.0) pg RDW 18.1 H (11.5-15.5) % Neutrophils # 13.7 H (1.3-7.7) k/uL BUN 25 H (7-17) mg/dL Glucose 118 H (74-99) mg/dL AST 45 H (14-36) U/L ALT 72 H (4-34) U/L Alkaline Phosphatase 139 H (38-126) U/L Total Protein 9.4 H (6.3-8.2) g/dL Albumin 5.1 H (3.5-5.0) g/dL Urine Protein 2+ H (Negative) Urine Ketones 3+ H (Negative) Urine Blood Small H (Negative) Urine RBC 6 H (0-5) /hpf Urine WBC 6 H (0-5) /hpf Urine Bacteria Rare H (None) /hpf Urine Mucus Few H (None) /hpf Thrombosis Risk Factor Assmnt - Choose All That Apply Each Factor Represents 1 point: Age 41-60 years Other Risk Factors: No Other congenital or acquired thrombophilia - If yes, enter type in comment: No Thrombosis Risk Factor Assessment Total Risk Factor Score: 1 Thrombosis Risk Factor Assessment Level: Low Risk
[2024-06-15] MEDS: PANTOPRAZOLE 40 MG/10 ML VIAL IVP SCH (17:01)
[2024-06-15] MEDS: METOCLOPRAMIDE 5 MG/ML 2 ML VIAL IVP SCH (18:13)
[2024-06-15] MEDS: LORazepam 2 MG/ML INJ IV SCH (19:31)
[2024-06-15] MEDS ORDERED: FAMOTIDINE 20 MG/2 ML VIAL IV SCH (21:00)
[2024-06-16] MEDS: AMITRIPTYLINE HCL 25 MG TAB PO PRN (00:12)
[2024-06-16 10:26] VITALS: BP 108/73; PULSE 83; RESP 20; TEMP 97.9
--- NOTE | 2024-06-16 23:08 | P.DS ---
Providers Date of admission: 06/15/24 00:11 Expected date of discharge: 06/16/24 Attending physician: Lowell Mendosa Primary care physician: Cynthia Fox [facility] Course: Chief Complaint: Nausea vomiting very pleasant 43-year-old patient, follows with Dr. Cynthia Fox. Chronic stable medical conditions include fibromyalgia, hypothyroid, herniated disc of the lower back. Peripheral neuropathy. Thyroid nodules Environmental allergies. IBS was diagnosed in 2019. Patient is followed up with Dr. Hermelinda Allison from GI. Has had endoscopy that showed hiatal hernia.nonalcoholic fatty liver disease Patient gets episodes described as: often times she will have nausea which is rather chronic and she gets the shaking feeling inside for which she takes amitriptyline. . Patient has these episodes of increased nausea vomiting it comes and goes. Normally these episodes she will also have 1 loose stool. And gets abdominal discomfort from nausea and vomiting. This with 2 days of nausea vomiting. No fever no chills. Slight abdominal discomfort. No urinary symptoms. This morning still having some vomiting. Rather watery-clear June 16: Patient is given scopolamine patch. Ativan. Reglan. Diet was adjusted. Doing well this morning. No nausea vomiting. Tolerating diet. Discussed. Social history: Patient smoked a pack a day for 26 years. Stopped 2018. Patient does vaping and smokes marijuana. Lives with her fianc. Patient has medical marijuana both for pain and nausea. Physical examination: VITAL SIGNS: 97.9, 83, 20, 108 x 73, 100% room air GENERAL: BMI 28.2, i, comfortable EYES: Pupils equal. Conjunctiva robert l. HEENT: External appearance of nose and ears normal, oral cavity grossly normal. NECK: JVD not raised; masses not palpable. HEART: First and second heart sounds are normal; no edema. LUNGS: Respiratory rate normal; decreased breath sound. ABDOMEN: Soft, nontender, liver spleen not palpable, no masses palpable. PSYCH: [Alert and oriented x3; mood and affect tired MUSCULOSKELETAL:No Clubbing/cyanosis;muscles-grossly intact INVESTIGATIONS, reviewed in the clinical context: June 14, 2024: White count 16.4 hemoglobin 13.1 platelets 319 sodium 138 potassium 3.9 creatinine 0.96 AST 45 ALT 72 alkaline phosphatase 139 Assessment plan: -Acute flareup of irritable bowel syndrome. Patient has a cyclical presentation rather frequently: Resolved IV Reglan. Scopolamine patch. IV Ativan Soft diet -GERD PPI -Anxiety and depression otherwise specified Elavil. Prozac. -Nonalcoholic fatty liver disease follow with Dr. Hermelinda Allison -Herniated disc disease lumbar spine. [place] as needed -Full code Disposition: Home Past Medical History Past Medical History: Fibromyalgia, Thyroid Disorder Additional Past Medical History / Comment(s): DDD, bulging discs, neuropathy in legs, thyroid nodules, anemia, environmental allergies, constipation/diarrhea, IBS diagnosed in 2019, chronic gastritis, GERD, hiatal hernia, umbilical hernia History of Any Multi-Drug Resistant Organisms: None Reported Past Surgical History: Hysterectomy, Orthopedic Surgery Additional Past Surgical History / Comment(s): Right wrist and forearm surgery, D&C, mass on vocal cords - surgery and biopsy. Past Anesthesia/Blood Transfusion Reactions: Postoperative Nausea & Vomiting (PONV) Additional Past Anesthesia/Blood Transfusion Reaction / Comment(s): Constipation post-op. Past Psychological History: Anxiety Smoking Status: Former smoker, Vaper Past Alcohol Use History: None Reported Past Drug Use History: Marijuana Plan - Discharge Summary New Discharge Prescriptions: Continue HYDROcodone/APAP 10-325MG [[place] 10-325] 1 tab PO TID PRN PRN Reason: Pain Dicyclomine [Bentyl] 20 mg PO QID PRN PRN Reason: IBS Promethazine Suppository [Phenergan] 25 mg RECTAL QID PRN #30 supp PRN Reason: Nausea And Vomiting Ondansetron Odt [Zofran ODT] 4 mg PO Q8HR PRN #30 tab PRN Reason: Nausea And Vomiting FLUoxetine HCL 20 mg PO DAILY Promethazine [Phenergan] 12.5 mg PO DAILY PRN PRN Reason: Nausea Amitriptyline HCl [Elavil] 25 mg PO HS PRN PRN Reason: Insomnia Naloxone HCl 4 mg NASAL DIRECTED PRN PRN Reason: accidental overdose Pantoprazole Sodium [Protonix] 40 mg PO AC-BID PRN PRN Reason: Heartburn/Gerd Sucralfate [Carafate] 1 gm PO TID PRN PRN Reason: Gi Upset Discharge Medication List HYDROcodone/APAP 10-325MG [[place] 10-325] 1 tab PO TID PRN 04/03/17 [History] Amitriptyline HCl [Elavil] 25 mg PO HS PRN 07/08/23 [History] Dicyclomine [Bentyl] 20 mg PO QID PRN 07/08/23 [History] Promethazine [Phenergan] 12.5 mg PO DAILY PRN 07/08/23 [History] Ondansetron Odt [Zofran ODT] 4 mg PO Q8HR PRN #30 tab 10/14/23 [Rx] Promethazine Suppository [Phenergan] 25 mg RECTAL QID PRN #30 supp 10/14/23 [Rx] FLUoxetine HCL 20 mg PO DAILY 10/15/23 [History] Naloxone HCl 4 mg NASAL DIRECTED PRN 10/15/23 [History] Pantoprazole Sodium [Protonix] 40 mg PO AC-BID PRN 10/15/23 [History] Sucralfate [Carafate] 1 gm PO TID PRN 01/11/24 [History] Follow up Appointment(s)/Referral(s): Cynthia Fox MD [Primary Care Provider] - 1-2 days Discharge Disposition: HOME SELF-CARE
== END 2024-06-16 13:40 | disposition home or self-care (01) ==
LOC: EC 18:53 → 6NMEDSUR 06-15 00:11 → 4FBP 06-15 01:31
PROVIDERS: ADMIT Hospitalist; ATTEND Hospitalist
DX: K58.0 Irritable bowel syndrome with diarrhea (principal); K21.9 Gastro-esophageal reflux disease without esophagitis; F41.9 Anxiety disorder, unspecified; F32.A Depression, unspecified; K76.0 Fatty (change of) liver, not elsewhere classified; M79.7 Fibromyalgia; E03.9 Hypothyroidism, unspecified; G62.9 Polyneuropathy, unspecified; K44.9 Diaphragmatic hernia without obstruction or gangrene; Z87.891 Personal history of nicotine dependence; M51.26 Other intervertebral disc displacement, lumbar region; Z79.899 Other long term (current) drug therapy; Z82.5 Family history of asthma and other chronic lower respiratory diseases
CPT/HCPCS: 96376 ×2; 96372 ×3; 96375 ×2; 96361; 96374; 99285; 36415; 80053; 82150; 83690; 85025; 81001; G0378 ×3; J2060; J1200; J0500; J2765 ×3; J2405 ×3; J1650 ×2; J2470 ×3; 96360

== ENCOUNTER 2024-09-23 11:50 | Observation (INO) | payer MEDICARE, OTHER ==
[2024-09-23] MEDS: SODIUM CHLORIDE 0.9% 1,000 ML IV STA ×3 (12:57→17:43)
[2024-09-23] MEDS: KETOROLAC 15 MG/ML 1 ML VIAL IVP STA (12:58)
[2024-09-23] MEDS: ONDANSETRON 4 MG/2 ML VIAL IVP STA (12:58)
[2024-09-23] MEDS: PANTOPRAZOLE 40 MG/10 ML VIAL IVP STA (12:58)
[2024-09-23 13:11] LABS: Anisocytosis Slight; Basophils # (A) 0.1 k/uL (0-0.2); Basophils % (A) 0 %; Eosinophils # (A) 0.1 k/uL (0-0.7); Eosinophils % (A) 0 %; HCT 38.4 % (34.0-46.0); HGB 12.6 gm/dL (11.4-16.0); Lymphocytes # (A) 2.6 k/uL (1.0-4.8); Lymphocytes % (A) 10 %; MCH 24.5 pg (25.0-35.0); MCHC 32.9 g/dL (31.0-37.0); MCV 74.3 fL (80.0-100.0); Mean Platelet Volume 7.3; Microcytosis Moderate; Monocytes % (A) 4 %; Neutrophils # (A) 21.2 k/uL (1.3-7.7); Neutrophils % (A) 84 %; Platelet Count 386 k/uL (150-450); RBC 5.17 m/uL (3.80-5.40); RDW 17.2 % (11.5-15.5); WBC 25.2 k/uL (3.8-10.6)
--- NOTE | 2024-09-23 13:17 | XR ---
Chest, 2 view. HISTORY: Cough. COMPARISON: 11/26/2022 TECHNIQUE: PA and lateral views the chest are obtained. FINDINGS: The lungs are clear and there is no consolidative or interstitial opacity. There is no pleural effusion or pneumothorax. The heart, pulmonary vasculature, mediastinum and juan appear normal. The osseous structures are intact. IMPRESSION: No significant abnormality seen. No acute cardiopulmonary disease. [facility], , 09/23/2024 1:15 PM
[2024-09-23 13:38] LABS: Partial Thromboplastin Time 22.1 sec (22.0-30.0); Prothrombin Time 10.9 sec (10.0-12.5)
[2024-09-23 13:46] LABS: ALT 59 U/L (4-34); African American GFR (CKD) >90 (>60 ml/min/1.73 sqM); Amylase 63 U/L (30-110); Anion Gap 19 mmol/L; Blood Urea Nitrogen 23 mg/dL (7-17); Calcium 10.5 mg/dL (8.4-10.2); Carbon Dioxide 24 mmol/L (22-30); Chloride 95 mmol/L (98-107); Glucose 120 mg/dL (74-99); Influenza A Not Detected (Not Detectd); Influenza B Not Detected (Not Detectd); Lipase 52 U/L (23-300); Non-African American GFR(CKD) >90 (>60 ml/min/1.73 sqM); RSV Detected (Not Detectd); Sodium 138 mmol/L (137-145); Total Bilirubin 1.1 mg/dL (0.2-1.3)
[2024-09-23 13:52] LABS: AST 67 U/L (14-36); Albumin 5.4 g/dL (3.5-5.0); Potassium 4.2 mmol/L (3.5-5.1); Total Protein 9.5 g/dL (6.3-8.2)
[2024-09-23 13:53] LABS: Alkaline Phosphatase 149 U/L (38-126)
[2024-09-23 14:20] LABS: HCG,Qualitative Serum Not Detected
--- NOTE | 2024-09-23 14:41 | ED ---
General Adult HPI - General Source: patient, RN notes reviewed, old records reviewed Mode of arrival: EMS Limitations: no limitations <Juan Carlos Blood - Last Filed: 09/23/24 14:43> <Anil Vickers - Last Filed: 09/23/24 17:27> - General Chief complaint: Nausea/Vomiting/Diarrhea Stated complaint: Vomiting Time Seen by Provider: 09/23/24 11:55 - History of Present Illness Initial comments: Patient is a 44-year-old female who presents emergency department complaining of nausea and vomiting. Recently diagnosed with pneumonia. Has been on antibiotics and steroids since Sunday. Thinks that the steroid may have triggered her chronic nausea and vomiting. She does have a history of cyclic vomiting syndrome. Complaining of weakness. Symptoms have been ongoing constantly for the last 2 days presents for further evaluation. Endorses epigastric abdominal discomfort. Denies chest pain. Denies fevers. Presents for further evaluation at this time. Patient has no history of recent marijuana use. (Juan Carlos Blood) - Related Data Home Medications Medication Instructions Recorded Confirmed HYDROcodone/APAP 10-325MG [[place] 1 tab PO TID PRN 04/03/17 06/15/24 10-325] Amitriptyline HCl [Elavil] 25 mg PO HS PRN 07/08/23 06/15/24 Dicyclomine [Bentyl] 20 mg PO QID PRN 07/08/23 06/15/24 Promethazine [Phenergan] 12.5 mg PO DAILY PRN 07/08/23 06/15/24 FLUoxetine HCL 20 mg PO DAILY 10/15/23 06/15/24 Naloxone HCl 4 mg NASAL DIRECTED PRN 10/15/23 06/15/24 Pantoprazole Sodium [Protonix] 40 mg PO AC-BID PRN 10/15/23 06/15/24 Sucralfate [Carafate] 1 gm PO TID PRN 01/11/24 06/15/24 Previous Rx's Medication Instructions Recorded Ondansetron Odt [Zofran ODT] 4 mg PO Q8HR PRN #30 tab 10/14/23 Promethazine Suppository 25 mg RECTAL QID PRN #30 supp 10/14/23 [Phenergan] Allergies Allergy/AdvReac Type Severity Reaction Status Date / Time propoxyphene Allergy Rash/Hives Verified 06/14/24 18:57 [From [place]-N] Review of Systems ROS Other: All systems not noted in ROS Statement are negative. <Juan Carlos Blood - Last Filed: 09/23/24 14:43> ROS Other: All systems not noted in ROS Statement are negative. <AleeAnil Yulissa - Last Filed: 09/23/24 17:27> ROS Statement: Those systems with pertinent positive or pertinent negative responses have been documented in the HPI. Review of Systems: CONST: Denies fever EYES: Denies blurry vision ENT: Denies nasal congestion C/V: Denies Chest pain RESP: Denies shortness of breath GI: Endorses abdominal pain : Denies dysuria SKIN: Denies rash. MSK: Denies joint pain. NEURO: Denies headache (Juan Carlos Blood) Past Medical History Past Medical History: Fibromyalgia, Thyroid Disorder Additional Past Medical History / Comment(s): DDD, bulging discs, neuropathy in legs, thyroid nodules, anemia, environmental allergies, constipation/diarrhea, IBS diagnosed in 2019, chronic gastritis, GERD, hiatal hernia, umbilical hernia History of Any Multi-Drug Resistant Organisms: None Reported Past Surgical History: Hysterectomy, Orthopedic Surgery Additional Past Surgical History / Comment(s): Right wrist and forearm surgery, D&C, mass on vocal cords - surgery and biopsy. Past Anesthesia/Blood Transfusion Reactions: Postoperative Nausea & Vomiting (PONV) Additional Past Anesthesia/Blood Transfusion Reaction / Comment(s): Constipation post-op. Past Psychological History: Anxiety Smoking Status: Former smoker, Vaper Past Alcohol Use History: None Reported Past Drug Use History: Marijuana - Past Family History Mother Family Medical History: No Reported History Father Family Medical History: COPD Additional Family Medical History / Comment(s): "Cardiovascular swelling". <Juan Carlos Blood - Last Filed: 09/23/24 14:43> General Exam Limitations: no limitations <Juan Carlos Blood - Last Filed: 09/23/24 14:43> - General Exam Comments Initial Comments: General: Peers and mild to moderate distress secondary to abdominal discomfort. HEAD: Normal with no signs of head trauma. EYES: PERRLA, EOMI, conjunctiva normal, no discharge. ENT: Hearing grossly intact, normal oropharynx. Dry mucous membranes. RESPIRATORY: Clear breath sounds bilaterally. No wheezes, rales, or rhonchi. C/V: Regular rate and rhythm. S1 and S2 auscultated, no edema, peripheral pulses 2+ and intact throughout ABD: Abdomen soft, nondistended. Tender to palpation epigastric region, as well as generalized upper quadrants. No guarding or rebound tenderness. No peritoneal signs. EXT: Normal range of motion, no obvious deformity SKIN: No rashes or lesions observed on exposed skin. NEURO: Alert and oriented x 4. (Juan Carlos Blood) Course Vital Signs 09/23/24 09/23/24 11:53 16:28 Temperature 98.7 F 99.2 F Pulse Rate 94 91 Respiratory 20 18 Rate Blood Pressure 148/96 149/91 O2 Sat by Pulse 96 96 Oximetry Medical Decision Making - Lab Data Result diagrams: 09/23/24 12:51 09/23/24 12:51 - EKG Data -: EKG Interpreted by Me <Juan Carlos Blood - Last Filed: 09/23/24 14:43> - Lab Data Result diagrams: 09/23/24 12:51 09/23/24 12:51 <Anil Vickers - Last Filed: 09/23/24 17:27> - Medical Decision Making Was pt. sent in by a medical professional or institution (, PA, ENTRY LEVEL PROGRAMMER, urgent care, hospital, or shelter...) When possible be specific @ -No Did you speak to anyone other than the patient for history (EMS, parent, family, police, friend...)? What history was obtained from this source @ -No Did you review nursing and triage notes (agree or disagree)? Why? @ -I reviewed and agree with nursing and triage notes Were old charts reviewed (outside hosp., previous admission, EMS record, old EKG, old radiological studies, urgent care reports/EKG's, shelter records)? Report findings @ -Old charts reviewed including presents from 2023 and February, March, May. Similar presentations at those times. Differential Diagnosis (chest pain, altered mental status, abdominal pain women, abdominal pain men, vaginal bleeding, weakness, fever, dyspnea, syncope, headache, dizziness, GI bleed, back pain, seizure, CVA, palpatations, mental health, musculoskeletal)? @ -Differential Abdominal Pain Women: Appendicitis, Cholecystitis, diverticulosis, ischemic bowel, pancreatitis, hepatitis, UTI, gastroenteritis, AAA, incarcerated hernia, bowel obstruction, constipation, inflammatory bowel, hepatitis, peptic ulcer disease, splenic infarction, perforated viscus, vulvitis, ovarian torsion, PID, kidney stone, placenta abruption, this is not meant to be an all-inclusive list EKG interpreted by me (3pts min.). @ -As above X-rays interpreted by me (1pt min.). @ -Chest x-ray reveals no obvious acute cardiopulmonary process. CT interpreted by me (1pt min.). @ -Pending U/S interpreted by me (1pt. min.). @ -Pending What testing was considered but not performed or refused? (CT, X-rays, U/S, labs)? Why? @ -None What meds were considered but not given or refused? Why? @ -None Did you discuss the management of the patient with other professionals (professionals i.e. , PA, ENTRY LEVEL PROGRAMMER, lab, RT, psych nurse, social media campaign manager, blending machine feeder, teacher, staff readiness officer, case specialist)? Give summary @ -No Was smoking cessation discussed for >3mins.? @ -No Was critical care preformed (if so, how long)? @ -No Were there social determinants of health that impacted care today? How? (Ho melessness, low income, unemployed, alcoholism, drug addiction, transportation, low edu. Level, literacy, decrease access to med. care, prison, rehab)? @ -No Was there de-escalation of care discussed even if they declined (Discuss DNR or withdrawal of care, Hospice)? DNR status @ -No What co-morbidities impacted this encounter? (DM, HTN, Smoking, COPD, CAD, Cancer, CVA, ARF, Chemo, Hep., AIDS, mental health diagnosis, sleep apnea, morbid obesity)? @ -None Was patient admitted / discharged? Hospital course, mention meds given and route, prescriptions, significant lab abnormalities, going to OR and other pertinent info. @ -Based on the patient's presentation and physical exam, patient presents emergency department complaining of abdominal pain, nausea and vomiting since Sunday. Does have a history of cyclic vomiting. Also recently diagnosed with pneumonia. Is on steroids but last dose was on Sunday. Presents for further evaluation. Patient will be administered IV fluids, analgesia medication, Protonix, Zofran. Vitals are within acceptable limits. She was in agreement this plan. EKG shows no signs of acute ischemia. Laboratory studies returned remarkable for leukocytosis of 25 which, as the patient is regularly elevated when she comes and this is higher than normal. Lactic acid is also elevated at 2.8. Chronically elevated LFTs and alk phos. She is not . RSV positive on viral swabs. Chest x-ray unremarkable. At this time, I did recommend we continue with the gallbladder ultrasound and CT abdomen pelvis. She will be empirically given a dose of Zosyn however concern for any acute intra-abdominal process at this time considering her leukocytosis and lactic acidosis. Does not meet criteria for sepsis at this time. She was in agreement this plan. At this time is the end my shift. Patient signed out to oncoming emergency department physician Dr. Vickers pending results of imaging. Undiagnosed new problem with uncertain prognosis? @ -No Drug Therapy requiring intensive monitoring for toxicity (Heparin, Nitro, Insulin, Cardizem)? @ -No Were any procedures done? @ -No (Juan Carlos Blood) Patient care signed out to me by previous shift physician, Dr. Blood. Briefly, patient is a 44-year-old female presents emergency department for vomiting, pneumonia. She has a history of cyclic vomiting syndrome. Vital signs upon arrival are within acceptable limits. Laboratory evaluation shows leukocytosis 25.2. Coag panel is unremarkable. Lactic ptosis of 2.8, RSV positive. Rest of labs within reasonable limits. Patient evaluated at the bedside in significant pain. She was already treated with multiple rounds of analgesics. She started on Zosyn. Pending imaging studies and discussion with hospitalist for admission. Pending images were reviewed. CT ab pelvis showed no acute processes. Ultrasound gallbladder showed no acute processes. Chest x-ray nonacute. Patient reevaluated at the bedside at 5:30 PM states she is still significantly symptomatic. Patient be admitted. Case discussed with Dr. Mendosa for admission. Diagnosis/symptom? @ -Tractable abdominal pain Acute, or Chronic, or Acute on Chronic? @ -Default Uncomplicated (without systemic symptoms) or Complicated (systemic symptoms)? @ -Default Side effects of treatment? @ -None Exacerbation, Progression, or Severe Exacerbation] @ -No Poses a threat to life or bodily function? @ -yes (Bayudan,Anil D) - Lab Data Lab Results 09/23/24 09/23/24 09/23/24 Range/Units 12:51 12:51 12:51 WBC 25.2 H (3.8-10.6) k/uL RBC 5.17 (3.80-5.40) m/uL Hgb 12.6 (11.4-16.0) gm/dL Hct 38.4 (34.0-46.0) % MCV 74.3 L (80.0-100.0) fL MCH 24.5 L (25.0-35.0) pg MCHC 32.9 (31.0-37.0) g/dL RDW 17.2 H (11.5-15.5) % Plt Count 386 (150-450) k/uL MPV 7.3 Neutrophils % 84 % Lymphocytes % 10 % Monocytes % 4 % Eosinophils % 0 % Basophils % 0 % Neutrophils # 21.2 H (1.3-7.7) k/uL Lymphocytes # 2.6 (1.0-4.8) k/uL Monocytes # 1.0 (0-1.0) k/uL Eosinophils # 0.1 (0-0.7) k/uL Basophils # 0.1 (0-0.2) k/uL Anisocytosis Slight Microcytosis Moderate PT 10.9 (10.0-12.5) sec INR 1.0 (<1.2) APTT 22.1 (22.0-30.0) sec Sodium 138 (137-145) mmol/L Potassium 4.2 (3.5-5.1) mmol/L Chloride 95 L (98-107) mmol/L Carbon Dioxide 24 (22-30) mmol/L Anion Gap 19 mmol/L BUN 23 H (7-17) mg/dL Creatinine 0.78 (0.52-1.04) mg/dL Est GFR (CKD-EPI)AfAm >90 (>60 ml/min/1.73 sqM) Est GFR (CKD-EPI)NonAf >90 (>60 ml/min/1.73 sqM) Glucose 120 H (74-99) mg/dL Lactic Ac Sepsis Rflx Plasma Lactic Acid Zaid (0.7-2.0) mmol/L Calcium 10.5 H (8.4-10.2) mg/dL Total Bilirubin 1.1 (0.2-1.3) mg/dL AST 67 H (14-36) U/L ALT 59 H (4-34) U/L Alkaline Phosphatase 149 H (38-126) U/L Total Protein 9.5 H (6.3-8.2) g/dL Albumin 5.4 H (3.5-5.0) g/dL Amylase 63 (30-110) U/L Lipase 52 (23-300) U/L HCG, Qual Not Detected Urine Color Urine Appearance (Clear) Urine pH (5.0-8.0) Ur Specific [place] (1.001-1.035) Urine Protein (Negative) Urine Glucose (UA) (Negative) Urine Ketones (Negative) Urine Blood (Negative) Urine Nitrite (Negative) Urine Bilirubin (Negative) Urine Urobilinogen (<2.0) mg/dL Ur Leukocyte Esterase (Negative) Urine RBC (0-5) /hpf Urine WBC (0-5) /hpf Ur Squamous Epith Cells (0-4) /hpf Influenza Type A (PCR) (Not Detectd) Influenza Type B (PCR) (Not Detectd) RSV (PCR) (Not Detectd) SARS-CoV-2 (PCR) (Not Detectd) 09/23/24 09/23/24 09/23/24 Range/Units 12:51 12:51 13:50 WBC (3.8-10.6) k/uL RBC (3.80-5.40) m/uL Hgb (11.4-16.0) gm/dL Hct (34.0-46.0) % MCV (80.0-100.0) fL MCH (25.0-35.0) pg MCHC (31.0-37.0) g/dL RDW (11.5-15.5) % Plt Count (150-450) k/uL MPV Neutrophils % % Lymphocytes % % Monocytes % % Eosinophils % % Basophils % % Neutrophils # (1.3-7.7) k/uL Lymphocytes # (1.0-4.8) k/uL Monocytes # (0-1.0) k/uL Eosinophils # (0-0.7) k/uL Basophils # (0-0.2) k/uL Anisocytosis Microcytosis PT (10.0-12.5) sec INR (<1.2) APTT (22.0-30.0) sec Sodium (137-145) mmol/L Potassium (3.5-5.1) mmol/L Chloride (98-107) mmol/L Carbon Dioxide (22-30) mmol/L Anion Gap mmol/L BUN (7-17) mg/dL Creatinine (0.52-1.04) mg/dL Est GFR (CKD-EPI)AfAm (>60 ml/min/1.73 sqM) Est GFR (CKD-EPI)NonAf (>60 ml/min/1.73 sqM) Glucose (74-99) mg/dL Lactic Ac Sepsis Rflx Y Plasma Lactic Acid Zaid 2.8 H* (0.7-2.0) mmol/L Calcium (8.4-10.2) mg/dL Total Bilirubin (0.2-1.3) mg/dL AST (14-36) U/L ALT (4-34) U/L Alkaline Phosphatase (38-126) U/L Total Protein (6.3-8.2) g/dL Albumin (3.5-5.0) g/dL Amylase (30-110) U/L Lipase (23-300) U/L HCG, Qual Urine Color Urine Appearance (Clear) Urine pH (5.0-8.0) Ur Specific [place] (1.001-1.035) Urine Protein (Negative) Urine Glucose (UA) (Negative) Urine Ketones (Negative) Urine Blood (Negative) Urine Nitrite (Negative) Urine Bilirubin (Negative) Urine Urobilinogen (<2.0) mg/dL Ur Leukocyte Esterase (Negative) Urine RBC (0-5) /hpf Urine WBC (0-5) /hpf Ur Squamous Epith Cells (0-4) /hpf Influenza Type A (PCR) Not Detected (Not Detectd) Influenza Type B (PCR) Not Detected (Not Detectd) RSV (PCR) Detected A (Not Detectd) SARS-CoV-2 (PCR) Not Detected (Not Detectd) 09/23/24 09/23/24 Range/Units 16:22 16:33 WBC (3.8-10.6) k/uL RBC (3.80-5.40) m/uL Hgb (11.4-16.0) gm/dL Hct (34.0-46.0) % MCV (80.0-100.0) fL MCH (25.0-35.0) pg MCHC (31.0-37.0) g/dL RDW (11.5-15.5) % Plt Count (150-450) k/uL MPV Neutrophils % % Lymphocytes % % Monocytes % % Eosinophils % % Basophils % % Neutrophils # (1.3-7.7) k/uL Lymphocytes # (1.0-4.8) k/uL Monocytes # (0-1.0) k/uL Eosinophils # (0-0.7) k/uL Basophils # (0-0.2) k/uL Anisocytosis Microcytosis PT (10.0-12.5) sec INR (<1.2) APTT (22.0-30.0) sec Sodium (137-145) mmol/L Potassium (3.5-5.1) mmol/L Chloride (98-107) mmol/L Carbon Dioxide (22-30) mmol/L Anion Gap mmol/L BUN (7-17) mg/dL Creatinine (0.52-1.04) mg/dL Est GFR (CKD-EPI)AfAm (>60 ml/min/1.73 sqM) Est GFR (CKD-EPI)NonAf (>60 ml/min/1.73 sqM) Glucose (74-99) mg/dL Lactic Ac Sepsis Rflx Plasma Lactic Acid Zaid 2.5 H* (0.7-2.0) mmol/L Calcium (8.4-10.2) mg/dL Total Bilirubin (0.2-1.3) mg/dL AST (14-36) U/L ALT (4-34) U/L Alkaline Phosphatase (38-126) U/L Total Protein (6.3-8.2) g/dL Albumin (3.5-5.0) g/dL Amylase (30-110) U/L Lipase (23-300) U/L HCG, Qual Urine Color Light Yellow Urine Appearance Clear (Clear) Urine pH 8.5 H (5.0-8.0) Ur Specific [place]cal[place] >1.050 H (1.001-1.035) Urine Protein 1+ H (Negative) Urine Glucose (UA) Negative (Negative) Urine Ketones 2+ H (Negative) Urine Blood Small H (Negative) Urine Nitrite Negative (Negative) Urine Bilirubin Negative (Negative) Urine Urobilinogen <2.0 (<2.0) mg/dL Ur Leukocyte Esterase Negative (Negative) Urine RBC 4 (0-5) /hpf Urine WBC 2 (0-5) /hpf Ur Squamous Epith Cells 7 H (0-4) /hpf Influenza Type A (PCR) (Not Detectd) Influenza Type B (PCR) (Not Detectd) RSV (PCR) (Not Detectd) SARS-CoV-2 (PCR) (Not Detectd) - EKG Data EKG Comments: 12-lead Electrocardiogram Interpretation Note EKG was reviewed and interpreted by myself. 12-lead ECG performed at 1237 is interpreted by me as revealing normal sinus rhythm at a rate of 88 beats per minute. [place] is normal. OR interval is 131 ms, QRS durations 84 ms, QTc is 435 ms.. There were no ST or T wave abnormalities to suggest myocardial ischemia or injury. R wave progression across the precordium was satisfactory. By my interpretation this EKG is non-diagnostic for acute ischemia. (Juan Carlos Blood) Disposition <Juan Carlos Blood - Last Filed: 09/23/24 14:43> Decision Time: 17:27 <Anil Vickers - Last Filed: 09/23/24 17:27> Clinical Impression: Intractable vomiting Disposition: ADMITTED IP TO THIS HOSP Condition: Fair Referrals: Cynthia Fox MD [Primary Care Provider] - 1-2 days
[2024-09-23] MEDS: PIPERACILLIN-TAZOBACTAM 3.375 GM in SODIUM CHLORIDE 0.9% 100 ML IVPB ONE (15:33)
[2024-09-23] MEDS: MORPHINE SULFATE 4 MG/ML SYRINGE IVP STA (15:34)
--- NOTE | 2024-09-23 16:22 | CT ---
EXAMINATION TYPE: CT abdomen pelvis w con DATE OF EXAM: 09/23/2024 COMPARISON: 03/29/2024 CLINICAL INDICATION: Female, 44 years old with history of abd pain, n/v; PHH, abd pain, n/v TECHNIQUE: Performed without Oral Contrast and with IV Contrast, patient injected with 100ml mL of Isovue 300. CT DLP: 1060.[address] CTDI: mGy Automated exposure control for dose reduction was used. FINDINGS: The lung bases are clear. The gallbladder is normal without distention, wall thickening, pericholecystic fluid or gallstones. T here is no biliary ductal dilatation. There is no focal mass or organomegaly involving the liver, pancreas, spleen or adrenal glands. There is no solid renal mass or hydronephrosis and there is homogeneous contrast enhancement of the r enal parenchyma. The caliber the abdominal aorta is normal is no retroperitoneal adenopathy or hemorr oscar. The bowel loops are normal in caliber and there is no evidence of dilatation or obstruction. No infla mmatory changes are identified in the bowel wall or mesentery. The appendix is visualized and is norm al There is no free intraperitoneal air or fluid. No pelvic mass, free fluid, abscess or adenopathy.. 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 The osseous structures and soft tissues are intact. IMPRESSION: No acute changes within the abdomen or pelvis. Is been no significant interval change compared to the prior study. [facility], , 09/23/2024 4:19 PM
--- NOTE | 2024-09-23 16:30 | US ---
EXAMINATION TYPE: US gallbladder DATE OF EXAM: 09/23/2024 COMPARISON: 02/27/24, CT: Today CLINICAL INDICATION: Female, 44 years old with history of n/v; n/v. Pt has RSV TECHNIQUE: Grayscale and color Doppler imaging of the right upper quadrant was performed. 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 No gallstones, gallbladder wall thickening, pericholecystic fluid or distention. Sonographic [place] y sign is negative. 2. No significant abnormality seen within the visualized liver, pancreas are right kidney. [facility], Workstation: [facility], 09/23/2024 4:28 PM
[2024-09-23 16:44] LABS: Appearance,Urine Clear (Clear); Bilirubin,Urine Negative (Negative); Blood,Urine Small (Negative); Color,Urine Light Yellow; Glucose,Urine (UA) Negative (Negative); Ketones,Urine 2+ (Negative); Leukocyte Esterase,Urine Negative (Negative); Nitrite,Urine Negative (Negative); PH, Urine 8.5 (5.0-8.0); Protein,Urine 1+ (Negative); RBC,Urine 4 /hpf (0-5); Squamous Epithelial Cell,Urine 7 /hpf (0-4); Urobilinogen,Urine <2.0 mg/dL (<2.0); WBC,Urine 2 /hpf (0-5)
[2024-09-23 17:04] LABS: Specific Gravity,Urine >1.050 (1.001-1.035)
[2024-09-23] MEDS ORDERED: ACETAMINOPHEN TAB 325 MG TAB PO PRN (17:24)
[2024-09-23] MEDS ORDERED: HYDROmorphone 1 MG/ML 1 ML SYRINGE IVP PRN (17:24)
[2024-09-23] MEDS ORDERED: NALOXONE 0.4 MG/ML 1 ML VIAL IV PRN (17:24)
[2024-09-23] MEDS: SODIUM CHLORIDE 0.9% 1,000 ML IV SCH (17:43)
[2024-09-23] MEDS ORDERED: ALBUTEROL HFA INHALER INHALATION PRN (21:47)
[2024-09-23] MEDS ORDERED: HYDROcodone/APAP 10-325MG 1 EACH TAB PO PRN (21:47)
[2024-09-23] MEDS ORDERED: LACTULOSE 20 GM/30 ML CUP PO PRN (21:49)
[2024-09-23] MEDS ORDERED: CALCIUM CARBONATE 500 MG CHEWABLE PO PRN (21:49)
[2024-09-23] MEDS: ENOXAPARIN 40 MG/0.4 ML SYRINGE SQ SCH (22:36)
[2024-09-23] MEDS: PANTOPRAZOLE 40 MG TABLET PO SCH (22:37)
[2024-09-23] MEDS: AMITRIPTYLINE HCL 25 MG TAB PO SCH (22:37)
[2024-09-23] MEDS: LACTATED RINGERS 1,000 ML IV SCH (22:37)
--- NOTE | 2024-09-23 22:52 | P.HPIM ---
History of Present Illness H&P Date: 09/23/24 Chief Complaint: Nausea vomiting pleasant 44-year-old patient, follows with Dr. Cynthia Fox. Chronic stable medical conditions include fibromyalgia, hypothyroid, herniated disc of the lower back. Peripheral neuropathy. Thyroid nodules Environmental allergies. IBS was diagnosed in 2019. Patient is followed up with Dr. Hermelinda Allison from GI. Has had endoscopy that showed hiatal hernia.nonalcoholic fatty liver disease Patient gets episodes described as: often times she will have nausea which is rather chronic and she gets the shaking feeling inside for which she takes amitriptyline. . Patient has these episodes of increased nausea vomiting it comes and goes. Normally these episodes she will also have 1 loose stool. And gets abdominal discomfort from nausea and vomiting. T Patient having chest pressure for 1 week. Then 3 days ago on Sunday she went to the urgent care. Told she was pneumonia was discharged with antibiotics and steroids. Possible Avelox. Then 2 days later that is on Sunday patient started having nausea vomiting. Increasing abdominal pain. No fever no chills. Finally decided to come in. Had a bowel movement yesterday. Review of systems: GEN.: Weak and tired EYES: None HEENT: None NECK: None RESPIRATORY: Some cough CARDIOVASCULAR: None GASTROINTESTINAL: Last bowel movement yesterday. Abdominal pain GENITOURINARY: None MUSCULOSKELETAL: Chronic low back pain LYMPHATICS: None HEMATOLOGICAL: None PSYCHIATRY: Anxiety NEUROLOGICAL: As above Social history: Patient smoked a pack a day for 26 years. Stopped 2018. Patient does vaping and smokes marijuana. Lives with her fianc. Patient has medical marijuana both for pain and nausea. Physical examination: VITAL SIGNS: 98.5, 69, 20, 144/81, 97% room air GENERAL: BMI 32.3, somewhat tearful on the bed EYES: Pupils equal. Conjunctiva robert l. HEENT: External appearance of nose and ears normal, oral cavity grossly normal. NECK: JVD not raised; masses not palpable. HEART: First and second heart sounds are normal; no edema. LUNGS: Respiratory rate increased, decreased breath sounds. ABDOMEN: Soft, nontender, liver spleen not palpable, no masses palpable. PSYCH: [Alert and oriented x3; mood and affect tearful MUSCULOSKELETAL:No Clubbing/cyanosis;muscles-grossly intact NEUROLOGICAL: Cranial nerves grossly intact; no facial asymmetry, power and s ensation grossly intact. LYMPHATICS: No lymph nodes palpable in the axilla and neck INVESTIGATIONS, reviewed in the clinical context: UA: Negative for nitrite leukoesterase Lactic acid 2.8, 2.5, 1.3 September 23, 2024: White count 25.2 hemoglobin 12.6 platelet 386 sodium 138 potassium 4.2 BUN 23 creatinine 0.78. AST 67 ALT 59 alkaline phosphatase 149 amylase 63 lipase 52 EKG tracing personally reviewed by me-normal sinus rhythm. Some ST depression inferior leads Chest x-ray film personally reviewed by me-no obvious infiltrate RSV: Detected [negative for influenza type A, type B, COVID-19: Assessment plan: -Acute flare of irritable bowel syndrome. Precipitated by RSV infection. Patient having significant nausea vomiting for 2 days.'s abdominal pain. Last bowel movement was yesterday. Tolerated some clear liquids. Try full liquids. -Acute RSV infection. Follow clinically. No clinical evidence of secondary bacterial infection. DC antibiotics -GERD PPI -Leukocytosis from steroids patient receiving as outpatient. -Lactic acidosis type II from dehydration and volume depletion -Anxiety and depression otherwise specified Elavil. Prozac. -Nonalcoholic fatty liver disease follow with Dr. Hermelinda Allison -Nonalcoholic fatty liver disease/hepatic steatosis Follows outpatient Dr. Hermelinda Allison -Herniated disc disease lumbar spine. [place] as needed -Full code Patient is given IV fluids. Liquid diet. Resume home medications. Discussed with patient. Will be placed in observation. Past Medical History Past Medical History: Fibromyalgia, Thyroid Disorder Additional Past Medical History / Comment(s): DDD, bulging discs, neuropathy in legs, thyroid nodules, anemia, environmental allergies, constipation/diarrhea, IBS diagnosed in 2019, chronic gastritis, GERD, hiatal hernia, umbilical hernia History of Any Multi-Drug Resistant Organisms: None Reported Past Surgical History: Hysterectomy, Orthopedic Surgery Additional Past Surgical History / Comment(s): Right wrist and forearm surgery, D&C, mass on vocal cords - surgery and biopsy. Past Anesthesia/Blood Transfusion Reactions: Postoperative Nausea & Vomiting (PONV) Additional Past Anesthesia/Blood Transfusion Reaction / Comment(s): Constipation post-op. Past Psychological History: Anxiety Smoking Status: Former smoker, Vaper Past Alcohol Use History: None Reported Past Drug Use History: Marijuana - Past Family History Mother Family Medical History: No Reported History Father Family Medical History: COPD Additional Family Medical History / Comment(s): "Cardiovascular swelling". Medications and Allergies Home Medications Medication Instructions Recorded Confirmed Type HYDROcodone/APAP 10-325MG [[place] 1 tab PO TID PRN 04/03/17 09/23/24 History 10-325] Amitriptyline HCl [Elavil] 25 mg PO HS 07/08/23 09/23/24 History Promethazine [Phenergan] 12.5 mg PO DAILY PRN 07/08/23 09/23/24 History FLUoxetine HCL 20 mg PO DAILY 10/15/23 09/23/24 History Pantoprazole Sodium [Protonix] 40 mg PO AC-BID 10/15/23 09/23/24 History Albuterol Sulfate [Ventolin HFA] 2 puff INHALATION RT-Q4H PRN 09/23/24 09/23/24 History Cetirizine HCl [Zyrtec] 10 mg PO DAILY 09/23/24 09/23/24 History Levofloxacin [Levaquin] 750 mg PO DAILY 09/23/24 09/23/24 History Promethazine/Dextromethorphan 5 ml PO Q4H PRN 09/23/24 09/23/24 History [Promethazine-Dm Syrup] predniSONE 10 mg PO TID 09/23/24 09/23/24 History Allergies Allergy/AdvReac Type Severity Reaction Status Date / Time propoxyphene Allergy Rash/Hives Verified 09/23/24 17:54 [From [facility]] Physical Exam Vitals: Vital Signs Temp Pulse Resp BP Pulse Ox 09/23/24 22:31 98.5 F 69 20 144/81 97 09/23/24 16:28 99.2 F 91 18 149/91 96 09/23/24 11:53 98.7 F 94 20 148/96 96 Intake and Output 09/23/24 09/23/24 09/23/24 06:59 14:59 22:59 Other: Weight 90.718 kg Results CBC & Chem 7: 09/23/24 12:51 09/23/24 12:51 Labs: Abnormal Lab Results - Last 24 Hours (Table) 09/23/24 09/23/24 09/23/24 Range/Units 12:51 12:51 12:51 WBC 25.2 H (3.8-10.6) k/uL MCV 74.3 L (80.0-100.0) fL MCH 24.5 L (25.0-35.0) pg RDW 17.2 H (11.5-15.5) % Neutrophils # 21.2 H (1.3-7.7) k/uL Chloride 95 L (98-107) mmol/L BUN 23 H (7-17) mg/dL Glucose 120 H (74-99) mg/dL Plasma Lactic Acid Zaid 2.8 H* (0.7-2.0) mmol/L Calcium 10.5 H (8.4-10.2) mg/dL AST 67 H (14-36) U/L ALT 59 H (4-34) U/L Alkaline Phosphatase 149 H (38-126) U/L Total Protein 9.5 H (6.3-8.2) g/dL Albumin 5.4 H (3.5-5.0) g/dL Urine pH (5.0-8.0) Ur Specific [place] (1.001-1.035) Urine Protein (Negative) Urine Ketones (Negative) Urine Blood (Negative) Ur Squamous Epith Cells (0-4) /hpf RSV (PCR) (Not Detectd) 09/23/24 09/23/24 09/23/24 Range/Units 12:51 16:22 16:33 WBC (3.8-10.6) k/uL MCV (80.0-100.0) fL MCH (25.0-35.0) pg RDW (11.5-15.5) % Neutrophils # (1.3-7.7) k/uL Chloride (98-107) mmol/L BUN (7-17) mg/dL Glucose (74-99) mg/dL Plasma Lactic Acid Zaid 2.5 H* (0.7-2.0) mmol/L Calcium (8.4-10.2) mg/dL AST (14-36) U/L ALT (4-34) U/L Alkaline Phosphatase (38-126) U/L Total Protein (6.3-8.2) g/dL Albumin (3.5-5.0) g/dL Urine pH 8.5 H (5.0-8.0) Ur Specific [place] >1.050 H (1.001-1.035) Urine Protein 1+ H (Negative) Urine Ketones 2+ H (Negative) Urine Blood Small H (Negative) Ur Squamous Epith Cells 7 H (0-4) /hpf RSV (PCR) Detected A (Not Detectd)
[2024-09-24] MEDS ORDERED: PIPERACILLIN-TAZOBACTAM 3.375 GM in SODIUM CHLORIDE 0.9% 100 ML IVPB SCH
[2024-09-24] MEDS: TEMAZEPAM 15 MG CAP PO PRN (00:21)
[2024-09-24 03:58] LABS: African American GFR (CKD) >90 (>60 ml/min/1.73 sqM); Anion Gap 10 mmol/L; Blood Urea Nitrogen 18 mg/dL (7-17); Calcium 9.1 mg/dL (8.4-10.2); Carbon Dioxide 26 mmol/L (22-30); Chloride 101 mmol/L (98-107); Glucose 96 mg/dL (74-99); Non-African American GFR(CKD) 84 (>60 ml/min/1.73 sqM); Potassium 3.6 mmol/L (3.5-5.1); Sodium 137 mmol/L (137-145)
[2024-09-24] MEDS: ONDANSETRON 4 MG/2 ML VIAL IVP PRN (08:59)
--- NOTE | 2024-09-24 09:51 | P.CRDCN ---
History of Present Illness History of present illness: HISTORY OF PRESENT ILLNESS: This is a 44-year-old female with a past medical history significant for former nicotine dependence, marijuana use, anxiety, and obesity. Patient used to follow in the office with Dr. Cordero but has not been seen since November 2019. We have been asked to see the patient in consultation for chest pain. Patient examined at the bedside. Patient states that she was recently seen in urgent care and diagnosed with pneumonia. She was started on antibiotics and steroids. Patient presented to the hospital with nausea and vomiting. Patient has been unable to keep anything down. Patient began to have chest discomfort after she began vomiting. At the time of examination this morning, she denies chest pain or pressure. She continues to have vomiting at the time of examination. Patient was found to be positive for RSV. DIAGNOSTICS: - EKG reveals sinus mechanism with no signs of acute ischemia - Chest xray no significant abnormality seen. No acute cardiopulmonary process. - Laboratory data: WBC 25.5. Hemoglobin 12.6. Platelet count 386. Sodium 137. Potassium 3.6. BUN 18. Creatinine 0.84. - Current home cardiac medications include none. - Patient underwent stress echocardiogram in November 2018 which was negative for ischemia REVIEW OF SYSTEMS: At the time of my exam: CONSTITUTIONAL: Denies fever or chills. HEENT: Denies blurred vision, vision changes, or eye pain. Denies hemoptysis CARDIOVASCULAR: Denies chest pain. Denies orthopnea. Denies PND. Denies palpitations RESPIRATORY: Denies shortness of breath. GASTROINTESTINAL: Denies abdominal pain. Reports nausea or vomiting. HEMATOLOGIC: Denies bleeding disorders. GENITOURINARY: Denies any blood in urine. SKIN: Denies pruitis. Denies rash. PHYSICAL EXAM: VITAL SIGNS: Reviewed. Thorough physical examination not completed per Dr. Cordero ASSESSMENT: Intractable nausea and vomiting Acute RSV Chest pain, atypical, no evidence of acute coronary syndrome Former nicotine dependence Marijuana use Anxiety Obesity: BMI 32.3 PLAN: Obtain 2D echo to assess cardiac structure and function Repeat EKG this morning Obtain troponin Will plan for outpatient stress testing when patient's acute issues have resolved Further recommendations pending patient course Patient to follow-up in the office with Dr. Cordero Nurse practitioner note has been reviewed by physician. Signing provider agrees with the documented findings, assessment, and plan of care documented by TALENT ACQUISITION PROJECT MANAGER as a scribe. Past Medical History Past Medical History: Fibromyalgia, Thyroid Disorder Additional Past Medical History / Comment(s): DDD, bulging discs, neuropathy in legs, thyroid nodules, anemia, environmental allergies, constipation/diarrhea, IBS diagnosed in 2019, chronic gastritis, GERD, hiatal hernia, umbilical hernia History of Any Multi-Drug Resistant Organisms: None Reported Past Surgical History: Hysterectomy, Orthopedic Surgery Additional Past Surgical History / Comment(s): Right wrist and forearm surgery, D&C, mass on vocal cords - surgery and biopsy. Past Anesthesia/Blood Transfusion Reactions: Postoperative Nausea & Vomiting (PONV) Additional Past Anesthesia/Blood Transfusion Reaction / Comment(s): Constipation post-op. Past Psychological History: Anxiety Smoking Status: Former smoker, Vaper Past Alcohol Use History: None Reported Additional Past Alcohol Use History / Comment(s): Quit smoking in 2018, history of 1 PPD. Started smoking at age 14. Pt vapes and smokes marajuana Past Drug Use History: Marijuana Additional Drug Use History / Comment(s): last smoked marijauna 4 days ago per pt. - Past Family History Mother Family Medical History: No Reported History Father Family Medical History: COPD Additional Family Medical History / Comment(s): "Cardiovascular swelling". Medications and Allergies Home Medications Medication Instructions Recorded Confirmed Type HYDROcodone/APAP 10-325MG [[place] 1 tab PO TID PRN 04/03/17 09/23/24 History 10-325] Amitriptyline HCl [Elavil] 25 mg PO HS 07/08/23 09/23/24 History Promethazine [Phenergan] 12.5 mg PO DAILY PRN 07/08/23 09/23/24 History FLUoxetine HCL 20 mg PO DAILY 10/15/23 09/23/24 History Pantoprazole Sodium [Protonix] 40 mg PO AC-BID 10/15/23 09/23/24 History Albuterol Sulfate [Ventolin HFA] 2 puff INHALATION RT-Q4H PRN 09/23/24 09/23/24 History Cetirizine HCl [Zyrtec] 10 mg PO DAILY 09/23/24 09/23/24 History Levofloxacin [Levaquin] 750 mg PO DAILY 09/23/24 09/23/24 History Promethazine/Dextromethorphan 5 ml PO Q4H PRN 09/23/24 09/23/24 History [Promethazine-Dm Syrup] predniSONE 10 mg PO TID 09/23/24 09/23/24 History Allergies Allergy/AdvReac Type Severity Reaction Status Date / Time propoxyphene Allergy Rash/Hives Verified 09/23/24 17:54 [facility] Physical Exam Vitals: Vital Signs Temp Pulse Pulse Resp BP BP Pulse Ox 09/24/24 08:11 98.1 F 93 17 128/85 99 09/24/24 01:45 98.0 F 73 20 130/78 96 09/23/24 23:13 98.4 F 69 20 129/82 98 09/23/24 22:31 98.5 F 69 20 144/81 97 09/23/24 16:28 99.2 F 91 18 149/91 96 09/23/24 11:53 98.7 F 94 20 148/96 96 Intake and Output 09/23/24 09/24/24 09/24/24 22:59 06:59 14:59 Other: Voiding Method Toilet Weight 90.718 kg Results 09/23/24 12:51 09/24/24 03:08 Cardiac Enzymes 09/23/24 Range/Units 12:51 AST 67 H (14-36) U/L Coagulation 09/23/24 Range/Units 12:51 PT 10.9 (10.0-12.5) sec APTT 22.1 (22.0-30.0) sec CBC 09/23/24 Range/Units 12:51 WBC 25.2 H (3.8-10.6) k/uL RBC 5.17 (3.80-5.40) m/uL Hgb 12.6 (11.4-16.0) gm/dL Hct 38.4 (34.0-46.0) % Plt Count 386 (150-450) k/uL Comprehensive Metabolic Panel 09/23/24 09/24/24 Range/Units 12:51 03:08 Sodium 138 137 (137-145) mmol/L Potassium 4.2 3.6 (3.5-5.1) mmol/L Chloride 95 L 101 (98-107) mmol/L Carbon Dioxide 24 26 (22-30) mmol/L BUN 23 H 18 H (7-17) mg/dL Creatinine 0.78 0.84 (0.52-1.04) mg/dL Glucose 120 H 96 (74-99) mg/dL Calcium 10.5 H 9.1 (8.4-10.2) mg/dL AST 67 H (14-36) U/L ALT 59 H (4-34) U/L Alkaline Phosphatase 149 H (38-126) U/L Total Protein 9.5 H (6.3-8.2) g/dL Albumin 5.4 H (3.5-5.0) g/dL Current Medications Generic Name Dose Route Start Last Admin Trade Name Freq PRN Reason Stop Dose Admin Acetaminophen 650 mg 09/23/24 17:24 Acetaminophen Tab 325 Mg Tab PO Q6HR PRN Mild Pain or Fever > 100.5 Hydrocodone Bitart/Acetaminophen 1 each 09/23/24 21:47 Hydrocodone/Apap 10-325mg 1 Each Tab PO TID PRN Pain Albuterol Sulfate 2 puff 09/23/24 21:47 Albuterol Hfa Inhaler INHALATION RT-Q4H PRN Shortness Of Breath Amitriptyline HCl 25 mg 09/23/24 22:00 09/23/24 22:37 Amitriptyline Hcl 25 Mg Tab PO 25 mg HS C[facility]STEL Administration Calcium Carbonate/Glycine 1,000 mg 09/23/24 21:49 Calcium Carbonate 500 Mg Chewable PO Q4HR PRN Dyspepsia Enoxaparin Sodium 40 mg 09/23/24 22:00 09/23/24 22:36 Enoxaparin 40 Mg/0.4 Ml Syringe SQ 40 mg DAILY CRISTEL Administration Fluoxetine HCl 20 mg 09/24/24 09:00 Fluoxetine Hcl 20 Mg Cap PO DAILY C[facility]STEL Lactated Ringer's 1,000 mls @ 125 mls/hr 09/23/24 22:00 09/24/24 05:25 Lactated Ringers IV 125 mls/hr .Q8H [facility]STEL Administration Lactulose 20 gm 09/23/24 21:49 Lactulose 20 Gm/30 Ml Cup PO DAILY PRN Constipation Loratadine 10 mg 09/24/24 09:00 Loratadine 10 Mg Tab PO DAILY C[facility]STEL Lorazepam 0.5 mg 09/23/24 21:49 Lorazepam 2 Mg/Ml Inj IV Q6HR PRN Anxiety Naloxone HCl 0.2 mg 09/23/24 17:24 Naloxone 0.4 Mg/Ml 1 Ml Vial IV Q2M PRN Opioid Reversal Ondansetron HCl 4 mg 09/23/24 17:24 09/24/24 08:59 Ondansetron 4 Mg/2 Ml Vial IVP 4 mg Q8HR PRN Administration Nausea And Vomiting Pantoprazole Sodium 40 mg 09/23/24 22:00 09/24/24 06:33 Pantoprazole 40 Mg Tablet PO 40 mg AC-BID C[facility]STEL Administration Temazepam 15 mg 09/23/24 21:49 09/24/24 00:21 Temazepam 15 Mg Cap PO 15 mg HS PRN Administration Insomnia Intake and Output 09/23/24 09/24/24 09/24/24 22:59 06:59 14:59 Other: Voiding Method Toilet Weight 90.718 kg 09/23/24 12:51 09/24/24 03:08
[2024-09-24] MEDS: PROCHLORPERAZINE INJ 10 MG/2 ML VIAL IVP PRN (10:36)
[2024-09-24] MEDS: LORazepam 2 MG/ML INJ IV PRN (11:02)
[2024-09-24] MEDS: LORATADINE 10 MG TAB PO SCH (12:12)
[2024-09-24] MEDS: FLUoxetine HCL 20 MG CAP PO SCH (12:12)
[2024-09-24] MEDS: DICYCLOMINE 10 MG CAP PO SCH (12:12)
[2024-09-24] MEDS: LORazepam 2 MG/ML INJ IV SCH (16:02)
--- NOTE | 2024-09-24 18:36 | P.PN ---
Progress Note - Text Progress Note Date: 09/24/24 Chief Complaint: Nausea vomiting pleasant 44-year-old patient, follows with Dr. Cynthia Fox. Chronic stable medical conditions include fibromyalgia, hypothyroid, herniated disc of the lower back. Peripheral neuropathy. Thyroid nodules Environmental allergies. IBS was diagnosed in 2019. Patient is followed up with Dr. Hermelinda Allison from GI. Has had endoscopy that showed hiatal hernia.nonalcoholic fatty liver disease Patient gets episodes described as: often times she will have nausea which is rather chronic and she gets the shaking feeling inside for which she takes amitriptyline. . Patient has these episodes of increased nausea vomiting it comes and goes. Normally these episodes she will also have 1 loose stool. And gets abdominal discomfort from nausea and vomiting. T Patient having chest pressure for 1 week. Then 3 days ago on Sunday she went to the urgent care. Told she was pneumonia was discharged with antibiotics and steroids. Possible Avelox. Then 2 days later that is on Sunday patient started having nausea vomiting. Increasing abdominal pain. No fever no chills. Finally decided to come in. Had a bowel movement yesterday. September 24: Patient had some more vomiting overnight. Zofran was changed to Compazine. Told the patient to set up. Troponin negative. Seen by cardiology for outpatient stress testing. Diet discussed with the patient. Significant anxiety. Will give patient scheduled Ativan. Will also help with nausea. Active Medications Acetaminophen (Acetaminophen Tab 325 Mg Tab) 650 mg PO Q6HR PRN PRN Reason: Mild Pain or Fever > 100.5 Hydrocodone Bitart/Acetaminophen (Hydrocodone/Apap 10-325mg 1 Each Tab) 1 each PO TID PRN PRN Reason: Pain Albuterol Sulfate (Albuterol Hfa Inhaler) 2 puff INHALATION RT-Q4H PRN PRN Reason: Shortness Of Breath Amitriptyline HCl (Amitriptyline Hcl 25 Mg Tab) 25 mg PO [facility] Last Admin: 09/23/24 22:37 Dose: 25 mg Calcium Carbonate/Glycine (Calcium Carbonate 500 Mg Chewable) 1,000 mg PO Q4HR PRN PRN Reason: Dyspepsia Dicyclomine HCl (Dicyclomine 10 Mg Cap) 10 mg PO TID [facility] Last Admin: 09/24/24 16:49 Dose: Not Given Enoxaparin Sodium (Enoxaparin 40 Mg/0.4 Ml Syringe) 40 mg SQ DAILY [facility] Last Admin: 09/24/24 10:26 Dose: 40 mg Fluoxetine HCl (Fluoxetine Hcl 20 Mg Cap) 20 mg PO DAILY [facility] Last Admin: 09/24/24 12:12 Dose: Not Given Lactated Ringer's (Lactated Ringers) 1,000 mls @ 125 mls/hr IV .Q8H [facility] Last Admin: 09/24/24 15:06 Dose: 125 mls/hr Lactulose (Lactulose 20 Gm/30 Ml Cup) 20 gm PO DAILY PRN PRN Reason: Constipation Loratadine (Loratadine 10 Mg Tab) 10 mg PO DAILY [facility] Last Admin: 09/24/24 12:12 Dose: Not Given Lorazepam (Lorazepam 2 Mg/Ml Inj) 0.5 mg IV Q8HR [facility] Last Admin: 09/24/24 16:02 Dose: 0.5 mg Naloxone HCl (Naloxone 0.4 Mg/Ml 1 Ml Vial) 0.2 mg IV Q2M PRN PRN Reason: Opioid Reversal Pantoprazole Sodium (Pantoprazole 40 Mg/10 Ml Vial) 40 mg IVP BID [facility] Prochlorperazine Edisylate (Prochlorperazine Inj 10 Mg/2 Ml Vial) 10 mg IVP Q6HR PRN PRN Reason: Nausea And Vomiting Last Admin: 09/24/24 16:55 Dose: 10 mg Social history: Patient smoked a pack a day for 26 years. Stopped 2018. Patient does vaping and smokes marijuana. Lives with her fianc. Patient has medical marijuana both for pain and nausea. Physical examination: VITAL SIGNS: 98.1, 93, 17, 128 x 85, 98% room air GENERAL: BMI 32.3, very anxious EYES: Pupils equal. Conjunctiva robert l. HEENT: External appearance of nose and ears normal, oral cavity grossly normal. NECK: JVD not raised; masses not palpable. HEART: First and second heart sounds are normal; no edema. LUNGS: Respiratory rate increased, decreased breath sounds. ABDOMEN: Soft, nontender, liver spleen not palpable, no masses palpable. PSYCH: [Alert and oriented x3; mood and affect anxious INVESTIGATIONS, reviewed in the clinical context: September 24: Potassium 3.6 creatinine 0.84. Troponin I less than 0.012 UA: Negative for nitrite leukoesterase Lactic acid 2.8, 2.5, 1.3 September 23, 2024: White count 25.2 hemoglobin 12.6 platelet 386 sodium 138 potassium 4.2 BUN 23 creatinine 0.78. AST 67 ALT 59 alkaline phosphatase 149 amylase 63 lipase 52 EKG tracing personally reviewed by me-normal sinus rhythm. Some ST depression inferior leads Chest x-ray film personally reviewed by me-no obvious infiltrate RSV: Detected [negative for influenza type A, type B, COVID-19: Assessment plan: -Acute flare of irritable bowel syndrome. Precipitated by RSV infection.: Slow to respond Patient having significant nausea vomiting for 2 days.'s abdominal pain. Last bowel movement was prior to presentation Full liquids. Stop Zofran. Compazine for nausea. Set up. -Acute RSV infection. Follow clinically. No clinical evidence of secondary bacterial infection. DC antibiotics -Anterior chest wall pain. Some EKG changes. Negative troponin. Seen by cardiology. For outpatient stress test. Negative troponin -GERD PPI -Leukocytosis from steroids patient receiving as outpatient. -Lactic acidosis type II from dehydration and volume depletion -Anxiety and depression otherwise specified Elavil. Prozac. Add scheduled Ativan for anxiety for now. -Nonalcoholic fatty liver disease follow with Dr. Hermelinda Allison -Herniated disc disease lumbar spine. [place] as needed -Full code Continue IV fluids liquid diet. Changed to Compazine. Ativan for anxiety scheduled. Up in the chair. Past Medical History Past Medical History: Fibromyalgia, Thyroid Disorder Additional Past Medical History / Comment(s): DDD, bulging discs, neuropathy in legs, thyroid nodules, anemia, environmental allergies, constipation/diarrhea, IBS diagnosed in 2019, chronic gastritis, GERD, hiatal hernia, umbilical hernia History of Any Multi-Drug Resistant Organisms: None Reported Past Surgical History: Hysterectomy, Orthopedic Surgery Additional Past Surgical History / Comment(s): Right wrist and forearm surgery, D&C, mass on vocal cords - surgery and biopsy. Past Anesthesia/Blood Transfusion Reactions: Postoperative Nausea & Vomiting (PONV) Additional Past Anesthesia/Blood Transfusion Reaction / Comment(s): Constipation post-op. Past Psychological History: Anxiety Smoking Status: Former smoker, Vaper Past Alcohol Use History: None Reported Past Drug Use History: Marijuana
[2024-09-24] MEDS: PANTOPRAZOLE 40 MG/10 ML VIAL IVP SCH (22:21)
[2024-09-25 09:32] VITALS: BP 126/68; PULSE 88; RESP 18; TEMP 98.6
--- NOTE | 2024-09-25 11:46 | CA ---
Transthoracic Echo Report Name: Khadijah Gibbons Age: 44 Gender: F : 1980 Exam Date: 09/25/2024 07:37 Exam Location: [facility] Ht (in): 64 Wt (lb): 200 Ordering Physician: Lowell Mendosa MD Attending/Referring Phys: Package Crimper Coty Alaniz RDCS Procedure CPT: Indications: Chest Pain Cardiac Hx: Technical Quality: Good Contrast 1: Total Dose (mL): Contrast 2: Total Dose (mL): MEASUREMENTS (Male / Female) Normal Values 2D ECHO LV Diastolic Diameter PLAX 4.3 cm 4.2 - 5.9 / 3.9 - 5.3 cm LV Systolic Diameter PLAX 2.9 cm IVS Diastolic Thickness 1.0 cm 0.6 - 1.0 / 0.6 - 0.9 cm LVPW Diastolic Thickness 1.0 cm 0.6 - 1.0 / 0.6 - 0.9 cm LV Relative Wall Thickness 0.5 RV Internal Dim ED PLAX 3.0 cm LVOT Diameter 1.7 cm Aortic Root Diameter 2.7 cm LA Systolic Diameter LX 3.4 cm 3.0 - 4.0 / 2.7 - 3.8 cm LV Diastolic Volume MOD 2C 100.9 cm??? LV Systolic Volume MOD 2C 45.1 cm??? LV Ejection Fraction MOD 2C 55.3 % LV Cardiac Index MOD 2C 2111.8 cm???/min???m??? LV Diastolic Length 2C 7.1 cm LV Systolic Length 2C 6.6 cm LA Volume 48.8 cm??? 18 - 58 / 22 - 52 cm??? LA Volume Index 23.7 cm???/m??? 16 - 28 cm???/m??? DOPPLER MV Area PHT 3.9 cm??? Mitral E Point Velocity 58.9 cm/s Mitral A Point Velocity 78.8 cm/s Mitral E to A Ratio 0.7 MV Deceleration Time 194.1 ms TR Peak Velocity 230.3 cm/s TR Peak Gradient 21.2 mmHg Right Atrial Pressure 5.0 mmHg Pulmonary Artery Systolic Pressu 26.2 mmHg Right Ventricular Systolic Press 26.2 mmHg FINDINGS Left Ventricle Left ventricular ejection fraction is estimated at 60-65%. Mildly increased septal wall thickness. Normal left ventricular systolic function with no obvious regional wall motion abnormalities. Right Ventricle Normal right ventricular size and function. Right ventricular systolic pressure within normal limits. Right Atrium Normal right atrial size. Left Atrium Normal left atrial size. Mitral Valve Structurally normal mitral valve. No mitral stenosis. Trace mitral regurgitation. Aortic Valve Trileaflet aortic valve. No aortic stenosis. No aortic regurgitation. Tricuspid Valve Structurally normal tricuspid valve. Trace tricuspid regurgitation. Pulmonic Valve Structurally normal pulmonic valve. No pulmonic regurgitation. Pericardium No pericardial or pleural effusion. Aorta Normal size aortic root and proximal ascending aorta. CONCLUSIONS Indication angina pectoris LVEF 60% Mild concentric LVH No obvious regional wall motion abnormality No significant chamber size abnormality No significant valvular dysfunction Previewed by: Dr Romulo Arrington (Electronically Signed) Final Date: 25 September 2024 11:45
--- NOTE | 2024-09-25 17:22 | P.PN ---
Subjective Progress Note Date: 09/25/24 HISTORY OF PRESENT ILLNESS: This is a 44-year-old female with a past medical history significant for former nicotine dependence, marijuana use, anxiety, and obesity. Patient used to follow in the office with Dr. Cordero but has not been seen since November 2019. We have been asked to see the patient in consultation for chest pain. Patient examined at the bedside. Patient states that she was recently seen in urgent care and diagnosed with pneumonia. She was started on antibiotics and steroids. Patient presented to the hospital with nausea and vomiting. Patient has been unable to keep anything down. Patient began to have chest discomfort after she began vomiting. At the time of examination this morning, she denies chest pain or pressure. She continues to have vomiting at the time of examination. Patient was found to be positive for RSV. DIAGNOSTICS: - EKG reveals sinus mechanism with no signs of acute ischemia - Chest xray no significant abnormality seen. No acute cardiopulmonary process. - Laboratory data: WBC 25.5. Hemoglobin 12.6. Platelet count 386. Sodium 137. Potassium 3.6. BUN 18. Creatinine 0.84. - Current home cardiac medications include none. - Patient underwent stress echocardiogram in November 2018 which was negative for ischemia Progress note 09/25/2024 Patient is seen and examined at bedside this a.m. Patient is very lethargic but however reports that her nausea and vomiting has got better. Her troponin were negative, her echocardiogram showed an EF of 60% with no major regional wall motion abnormality or valvular dysfunction. REVIEW OF SYSTEMS: At the time of my exam: CONSTITUTIONAL: Denies fever or chills. HEENT: Denies blurred vision, vision changes, or eye pain. Denies hemoptysis CARDIOVASCULAR: Denies chest pain. Denies orthopnea. Denies PND. Denies palpitations RESPIRATORY: Denies shortness of breath. GASTROINTESTINAL: Denies abdominal pain. Reports nausea or vomiting. HEMATOLOGIC: Denies bleeding disorders. GENITOURINARY: Denies any blood in urine. SKIN: Denies pruitis. Denies rash. PHYSICAL EXAM: Lungs have mild rhonchi and mild crackles. No wheezing S1-S2 is audible, regular bilateral upper and lower extremity pulses, no sig nificant murmurs appreciated. JVP is not elevated Abdominal soft and nondistended Alert oriented, however lethargic, no focal neurological deficit, detailed exam was not performed ASSESSMENT: Intractable nausea and vomiting Acute RSV Chest pain, atypical, no evidence of acute coronary syndrome Former nicotine dependence Marijuana use Anxiety Obesity: BMI 32.3 PLAN: Patient has been ruled out of ACS Would recommend outpatient ischemic evaluation. At this time patient is cleared from cardiovascular standpoint Cardiology team will sign off, please reconsult us in case of any questions. Objective - Vital Signs Vital signs: Vital Signs Temp 98.6 F 09/25/24 08:12 Pulse 88 09/25/24 08:12 Resp 18 09/25/24 08:12 BP 126/68 09/25/24 08:12 Pulse Ox 94 L 09/25/24 08:12 FiO2 Intake & Output 09/24/24 09/25/24 09/25/24 18:59 06:59 18:59 Other: Voiding Method Toilet Toilet # Voids 2 1 - Labs CBC & Chem 7: 09/23/24 12:51 09/24/24 03:08 Labs: Microbiology - Last 24 Hours (Table) 09/23/24 15:31 Blood Culture - Preliminary Blood
--- NOTE | 2024-09-25 20:54 | P.DS ---
Providers Date of admission: 09/23/24 17:25 Expected date of discharge: 09/25/24 Attending physician: Lowell Mendosa Primary care physician: Cynthia Fox [facility] Course: Chief Complaint: Nausea vomiting pleasant 44-year-old patient, follows with Dr. Cynthia Fox. Chronic stable medical conditions include fibromyalgia, hypothyroid, herniated disc of the lower back. Peripheral neuropathy. Thyroid nodules Environmental allergies. IBS was diagnosed in 2019. Patient is followed up with Dr. Hermelinda Allison from GI. Has had endoscopy that showed hiatal hernia.nonalcoholic fatty liver disease Patient gets episodes described as: often times she will have nausea which is rather chronic and she gets the shaking feeling inside for which she takes amitriptyline. . Patient has these episodes of increased nausea vomiting it comes and goes. Normally these episodes she will also have 1 loose stool. And gets abdominal discomfort from nausea and vomiting. T Patient having chest pressure for 1 week. Then 3 days ago on Sunday she went to the urgent care. Told she was pneumonia was discharged with antibiotics and steroids. Possible Avelox. Then 2 days later that is on Sunday patient started having nausea vomiting. Increasing abdominal pain. No fever no chills. Finally decided to come in. Had a bowel movement yesterday. September 24: Patient had some more vomiting overnight. Zofran was changed to Compazine. Told the patient to set up. Troponin negative. Seen by cardiology for outpatient stress testing. Diet discussed with the patient. Significant anxiety. Will give patient scheduled Ativan. Will also help with nausea. September 25: Doing well. Tolerated light diet. Diet discussed. Follows Dr. Hermelinda Allison outpatient. Patient keen to go home. No need for antibiotics or stero ids. Social history: Patient smoked a pack a day for 26 years. Stopped 2018. Patient does vaping and smokes marijuana. Lives with her fianc. Patient has medical marijuana both for pain and nausea. Physical examination: VITAL SIGNS: 98.6, 88, 18, 126 x 68, 94% room air GENERAL: BMI 32.3, very anxious EYES: Pupils equal. Conjunctiva robert l. HEENT: External appearance of nose and ears normal, oral cavity grossly normal. NECK: JVD not raised; masses not palpable. HEART: First and second heart sounds are normal; no edema. LUNGS: Respiratory rate increased, decreased breath sounds. ABDOMEN: Soft, nontender, liver spleen not palpable, no masses palpable. PSYCH: [Alert and oriented x3; mood and affect anxious INVESTIGATIONS, reviewed in the clinical context: September 24: Potassium 3.6 creatinine 0.84. Troponin I less than 0.012 UA: Negative for nitrite leukoesterase Lactic acid 2.8, 2.5, 1.3 September 23, 2024: White count 25.2 hemoglobin 12.6 platelet 386 sodium 138 potassium 4.2 BUN 23 creatinine 0.78. AST 67 ALT 59 alkaline phosphatase 149 amylase 63 lipase 52 EKG tracing personally reviewed by me-normal sinus rhythm. Some ST depression inferior leads Chest x-ray film personally reviewed by me-no obvious infiltrate RSV: Detected [negative for influenza type A, type B, COVID-19: Assessment plan: -Acute flare of irritable bowel syndrome. Precipitated by RSV infection.: Resolved Patient having significant nausea vomiting for 2 days.'s abdominal pain. Last bowel movement was prior to presentation Full liquids. Stop Zofran. Compazine for nausea. -Acute RSV infection.: Clinically improved Follow clinically. No clinical evidence of secondary bacterial infection. DC antibiotics -Anterior chest wall pain. Some EKG changes. Negative troponin. Seen by cardiology. For outpatient stress test. Negative troponin -GERD PPI -Leukocytosis from steroids patient receiving as outpatient. -Lactic acidosis type II from dehydration and volume depletion -Anxiety and depression otherwise specified Elavil. Prozac. Add scheduled Ativan for anxiety for now. -Nonalcoholic fatty liver disease follow with Dr. Hermelinda Allison -Herniated disc disease lumbar spine. [place] as needed -Full code Disposition: Home Past Medical History Past Medical History: Fibromyalgia, Thyroid Disorder Additional Past Medical History / Comment(s): DDD, bulging discs, neuropathy in legs, thyroid nodules, anemia, environmental allergies, constipation/diarrhea, IBS diagnosed in 2019, chronic gastritis, GERD, hiatal hernia, umbilical hernia History of Any Multi-Drug Resistant Organisms: None Reported Past Surgical History: Hysterectomy, Orthopedic Surgery Additional Past Surgical History / Comment(s): Right wrist and forearm surgery, D&C, mass on vocal cords - surgery and biopsy. Past Anesthesia/Blood Transfusion Reactions: Postoperative Nausea & Vomiting (PONV) Additional Past Anesthesia/Blood Transfusion Reaction / Comment(s): Constipation post-op. Past Psychological History: Anxiety Smoking Status: Former smoker, Vaper Past Alcohol Use History: None Reported Past Drug Use History: Marijuana Plan - Discharge Summary New Discharge Prescriptions: Continue HYDROcodone/APAP 10-325MG [[place] 10-325] 1 tab PO TID PRN PRN Reason: Pain FLUoxetine HCL 20 mg PO DAILY Promethazine/Dextromethorphan [Promethazine-Dm 6.25-15 mg/5Ml] 5 ml PO Q4H PRN PRN Reason: cough/nausea Cetirizine HCl [Zyrtec] 10 mg PO DAILY Albuterol Sulfate [Ventolin HFA] 2 puff INHALATION RT-Q4H PRN PRN Reason: Shortness Of Breath Promethazine [Phenergan] 12.5 mg PO DAILY PRN PRN Reason: Nausea Amitriptyline HCl [Elavil] 25 mg PO HS Pantoprazole Sodium [Protonix] 40 mg PO AC-BID Discontinued predniSONE 10 mg PO TID Levofloxacin [Levaquin] 750 mg PO DAILY Discharge Medication List HYDROcodone/APAP 10-325MG [[place] 10-325] 1 tab PO TID PRN 04/03/17 [History] Amitriptyline HCl [Elavil] 25 mg PO HS 07/08/23 [History] Promethazine [Phenergan] 12.5 mg PO DAILY PRN 07/08/23 [History] FLUoxetine HCL 20 mg PO DAILY 10/15/23 [History] Pantoprazole Sodium [Protonix] 40 mg PO AC-BID 10/15/23 [History] Albuterol Sulfate [Ventolin HFA] 2 puff INHALATION RT-Q4H PRN 09/23/24 [History] Cetirizine HCl [Zyrtec] 10 mg PO DAILY 09/23/24 [History] Promethazine/Dextromethorphan [Promethazine-Dm 6.25-15 mg/5Ml] 5 ml PO Q4H PRN 09/23/24 [History] Follow up Appointment(s)/Referral(s): Devika Allison MD [STAFF PHYSICIAN] - 2 Weeks (Office did not answer. Please call tomorrow 09/26/24 to make follow up appt. ) Cynthia Fox MD [Primary Care Provider] - 1-2 days () Patient Instructions/Handouts: Respiratory Syncytial Virus (DC), Cyclic Vomiting Syndrome (DC) Activity/Diet/Wound Care/Special Instructions: soft bland diet Discharge Disposition: HOME SELF-CARE
== END 2024-09-25 15:31 | disposition home or self-care (01) ==
LOC: EC 11:50 → 4SSUR 17:25 → INTOOBSV 17:25 → 4SSUR 22:18
PROVIDERS: ADMIT Hospitalist; ATTEND Hospitalist
DX: K58.9 Irritable bowel syndrome, unspecified (principal); B97.4 Respiratory syncytial virus as the cause of diseases classified elsewhere; Z79.899 Other long term (current) drug therapy; Z88.5 Allergy status to narcotic agent; E03.9 Hypothyroidism, unspecified; M79.7 Fibromyalgia; G62.9 Polyneuropathy, unspecified; E04.2 Nontoxic multinodular goiter; K44.9 Diaphragmatic hernia without obstruction or gangrene; K76.0 Fatty (change of) liver, not elsewhere classified; F17.290 Nicotine dependence, other tobacco product, uncomplicated; K21.9 Gastro-esophageal reflux disease without esophagitis; F41.9 Anxiety disorder, unspecified; F12.90 Cannabis use, unspecified, uncomplicated; E66.9 Obesity, unspecified; Z68.32 Body mass index [BMI] 32.0-32.9, adult; R07.89 Other chest pain; D72.829 Elevated white blood cell count, unspecified; T38.0X5A Adverse effect of glucocorticoids and synthetic analogues, initial encounter; E87.20 Acidosis, unspecified; E86.0 Dehydration; E86.9 Volume depletion, unspecified; M51.26 Other intervertebral disc displacement, lumbar region; R11.15 Cyclical vomiting syndrome unrelated to migraine
CPT/HCPCS: 96376 ×2; 96361 ×3; 96372 ×3; 96375 ×2; 96365; 96366; 99285; 36415; 93005; 93306; 80053; 80048; 82150; 83605; 83690; 84484; 85025; 85610; 85730; 81001; 84703; 87040; 87636; 71046; 76705; 74177; G0378 ×3; J2543; J2060 ×2; J2270; J0780 ×2; J2405 ×2; J1650 ×3; J1885; Q9967; J2470 ×3